=== PATIENT | male | born 1965 | race Caucasian/White ===

== ENCOUNTER 2020-10-07 18:12 | Emergency (ER) | payer OTHER, SELFPAY ==
[2020-10-07 18:21] VITALS: BP 119/80; PULSE 112; RESP 18; TEMP 37; O2SAT 98; BMI 24.3
--- NOTE | 2020-10-07 18:45 | XR_ITS ---
EXAMINATION: XR CHEST CLINICAL INFORMATION: Shortness of breath COMPARISON: Multiple prior exams. Most recent exam Chest x-ray 08/11/2020. CT chest 08/13/2020 TECHNIQUE: Frontal portable view of the chest was obtained. 6:46 PM FINDINGS: There are small hazy and streaky opacities of lungs bilateral. These are affecting mostly the mid and lower lung. These have improved in aeration since prior chest x-ray 08/11/2020. Most improvement is seen of the opacities in the right midlung. No new airspace opacity. No pulmonary vascular congestion. No pleural effusion or pneumothorax. Heart size is normal. Cardiac and mediastinal contours are normal. XR/XR chest 1V IMPRESSION: Improving bilateral airspace opacities. No new abnormality of the chest.
--- NOTE | 2020-10-07 18:46 | ECG_ITS ---
Test Reason : SOB Blood Pressure : / mmHG Vent. Rate : 106 BPM Atrial Rate : 106 BPM P-R Int : 172 ms QRS Dur : 078 ms QT Int : 346 ms P-R-T Axes : 072 074 057 degrees QTc Int : 459 ms Sinus tachycardia Possible Left atrial enlargement Otherwise normal ECG When compared with ECG of 11-AUG-2020 18:44, No significant change was found Referred By: Amira Miller Electronically Signed By:MELODY HURTADO MD
--- NOTE | 2020-10-07 18:48 | ED.SOB ---
HPI - SOB/Dyspnea General Chief Complaint: Dyspnea Stated Complaint: SOB COPD Time Seen by Provider: 10/07/20 18:45 Source: patient and EMS Mode of arrival: ambulatory Limitations: no limitations History of Present Illness HPI Narrative: This is a 55-year-old male history of COPD presented with 1 day history of shortness of breath and wheezing, symptoms are constant described as mild, similar to previous episode of COPD exacerbation, symptoms relieved by rest, worsening by physical exertion, no associated symptoms with shortness of breath in particular no fever, no chills, no chest pain. Related Data Home Medications Medication Instructions Recorded Confirmed aspirin 1 tab PO DAILY 10/07/20 10/07/20 benztropine 1 tab PO BID 10/07/20 10/07/20 budesonide 1 vial INHALATION BID 10/07/20 10/07/20 clozapine 3 tab PO BEDTIME 10/07/20 10/07/20 metformin 1 tab PO BID 10/07/20 10/07/20 perphenazine 1 tab PO BEDTIME 10/07/20 10/07/20 simvastatin 1 tab PO BEDTIME 10/07/20 10/07/20 Previous Rx's Medication Instructions Recorded albuterol sulfate [ProAir HFA] 1 inh INHALATION QID PRN #18 g 10/07/20 prednisone 20 mg PO BID #10 tab 10/07/20 Allergies Allergy/AdvReac Type Severity Reaction Status Date / Time No Known Allergies Allergy Unverified 08/05/20 17:35 Review of Systems Review of Systems: All other systems are reviewed and are negative Constitutional: Reports as per HPI and Reports no additional constitutional complaints Eyes: Reports as per HPI and Reports no additional eye complaints Reports system reviewed and no additional complaints, except as documented Cardiovascular: Reports as per HPI and Reports no additional cardiovascular complaints Respiratory: Reports as per HPI and Reports no additional respiratory complaints Gastrointestinal: Reports as per HPI and Reports no additional gastrointestinal complaints Genitourinary: Reports no additional female genitourinary complaints Musculoskeletal: Reports no additional musculoskeletal complaints Skin/Breast: Reports system reviewed and no additional complaints, except as docu Psychiatric: Reports no additional psychiatric complaints Endocrine: Reports no additional endocrine complaints Hematologic/Lymphatic: Reports no additional hematologic/lymphatic complaints Allergic/Immunologic: Reports no additional allergic/immunologic complaints Reports system reviewed and no additional complaints, except as documented and Reports Abnormal speech present FOR[facility] Past Medical History Medical History COPD (chronic obstructive pulmonary disease) Diabetes HTN (hypertension) Social History Social History Alcohol intake: never Smoked in Last 30 Days: No Use of substances other than those prescribed or required for medical reasons: Yes Substance Use Type: Crack/Cocaine Advance Directives: No Advance Directives Information Provided: Yes Physical Exam Vital Signs: Vital Signs: Last Vital Signs Temp 98.6 F 10/07/20 18:21 Pulse 112 H 10/07/20 18:21 Resp 18 10/07/20 18:21 BP 119/80 10/07/20 18:21 Pulse Ox 98 10/07/20 18:21 Body Mass Index 24.3 Vital signs have been reviewed as normal and appeared to be correct. Blood pressure normal. Tachycardia. Respiration rate normal. Temperature normal. Oxygen saturation normal. Appearance: Alert. Oriented X3. No acute distress. Head: Normal external exam. Normocephalic. Atraumatic. No Mohamud signs noted. No raccoon eyes noted Eyes: PERRLA. EOMI. Conjunctiva and sclera normal. Eyelids normal. ENT: EAC normal. TM's Normal. Pharynx normal. Uvula midline. Moist mucous membranes. No trismus noted. No drooling noted. No muffled voice noted. Neck: Normal inspection. Neck supple. FROM. No adenopathy. Thyroid Normal. No meningeal signs. No neck mass noted. CVS: Normal heart rate and rhythm. Heart sound normal. No murmurs noted. Pulses normal throughout. Respiratory: No respiratory distress. Painless inspiration. Breath sounds normal. Diffuse bilateral mild wheezing with mild prolonged expiration, no rales/rhonchi noted. Chest nontender. No accessory muscle usage noted or decreased air movement noted. Abdomen: Soft and nontender. Bowel sounds normal in all 4 quadrants. No distention noted. No organomegaly noted. No visible injury noted. Back: No CVA tenderness. Full range of motion noted. Skin: Skin warm and dry. Normal skin color. Normal skin turgor. No rashes/lesions/lacerations noted. Extremities: No lower extremity edema. Extremities exhibit normal range of motion. Extremities nontender. Neuro: Oriented X 3. No motor deficit. No sensory deficit. Reflexes normal. MDM - SOB/Dyspnea MDM Narrative Medical decision making narrative: Assessment and plan. 55-year-old male with history of COPD presented with mild COPD exacerbation, patient improved with IV Solu-Medrol/bronchodilator/magnesium. Patient now is in bed appears comfortable with vital sign stable except for: Mild tachycardia but otherwise patient appears comfortable with stable vital sign. Will discharge the patient with albuterol, and few days of steroid course. Patient was chronic anemia at his baseline. Lab Data Attestation: I reviewed the patient's lab results. Result diagrams: 10/07/20 19:13 10/07/20 19:13 Labs: Lab Results 10/07/20 10/07/20 10/07/20 Range/Units 19:13 19:13 19:13 WBC 6.2 (4.8-10.8) X10*3/uL RBC 3.72 L (4.60-5.80) X10*6/uL Hgb 8.8 L (14.0-18.0) g/dl Hct 28.6 L (42-52) % MCV 76.9 L (80-98) fL MCH 23.7 L (27.0-33.0) pg MCHC 30.8 L (31.0-36.0) g/dl RDW 15.1 (11.0-16.0) % Plt Count 337 (160-400) X10*3/uL MPV 9.8 (9.4-12.4) fL Immature Gran % (Auto) 0.2 (0.0-0.4) % Neut % (Auto) 73.8 H (45-73) % Lymph % (Auto) 19.0 L (20-40) % [place] % (Auto) 6.0 (2-11) % Eos % (Auto) 0.2 (0-4) % Baso % (Auto) 0.8 (0-2) % Lymph # (Auto) 1.2 (1.2-4.9) X10*3/uL [place] # (Auto) 0.4 (0.1-1.2) X10*3/uL Eos # (Auto) 0.0 (0.0-0.4) X10*3/uL Baso # (Auto) 0.1 (0.0-0.2) X10*3/uL Abs Immat Gran (auto) 0.01 (0.00-0.03) X10*3/uL Absolute Neuts (auto) 4.6 (2.0-8.3) X10*3/uL Absolute Nucleated RBC 0.000 (0.0-0.012) X10*3/uL Nucleated RBC % (auto) 0.0 (0.0-0.2) /100WBC Sodium 136 (135-145) mmol/L Potassium 4.5 (3.3-5.1) mmol/l Chloride 101 (96-108) mmol/L Carbon Dioxide 25 (22-29) mmol/L Anion Gap 15 (12-20) BUN 16 (9-16) mg/dL Creatinine 1.04 (0.5-1.4) mg/dL Estim Creat Clear Calc 68.7 Estimated GFR > 60 Random Glucose 124 H (60-115) mg/dL Lactic Acid (0.5-2.0) mmol/L Calcium 8.5 (8.4-10.2) mg/dL Urine Color Urine Appearance Urine pH (5.0-8.0) Ur Specific [place] (1.005-1.025) Urine Protein (NEG-TRACE) MG/DL Urine Glucose (UA) (NEG) MG/DL Urine Ketones (NEG) MG/DL Urine Blood (NEG) Urine Nitrite (NEG) Ur Leukocyte Esterase (NEG) COVID-19 (ANDERS) Negative (Negative) COVID-19 Clin Com See Note 10/07/20 10/07/20 Range/Units 19:13 19:22 WBC (4.8-10.8) X10*3/uL RBC (4.60-5.80) X10*6/uL Hgb (14.0-18.0) g/dl Hct (42-52) % MCV (80-98) fL MCH (27.0-33.0) pg MCHC (31.0-36.0) g/dl RDW (11.0-16.0) % Plt Count (160-400) X10*3/uL MPV (9.4-12.4) fL Immature Gran % (Auto) (0.0-0.4) % Neut % (Auto) (45-73) % Lymph % (Auto) (20-40) % [place] % (Auto) (2-11) % Eos % (Auto) (0-4) % Baso % (Auto) (0-2) % Lymph # (Auto) (1.2-4.9) X10*3/uL [place] # (Auto) (0.1-1.2) X10*3/uL Eos # (Auto) (0.0-0.4) X10*3/uL Baso # (Auto) (0.0-0.2) X10*3/uL Abs Immat Gran (auto) (0.00-0.03) X10*3/uL Absolute Neuts (auto) (2.0-8.3) X10*3/uL Absolute Nucleated RBC (0.0-0.012) X10*3/uL Nucleated RBC % (auto) (0.0-0.2) /100WBC Sodium (135-145) mmol/L Potassium (3.3-5.1) mmol/l Chloride (96-108) mmol/L Carbon Dioxide (22-29) mmol/L Anion Gap (12-20) BUN (9-16) mg/dL Creatinine (0.5-1.4) mg/dL Estim Creat Clear Calc Estimated GFR Random Glucose (60-115) mg/dL Lactic Acid 1.6 (0.5-2.0) mmol/L Calcium (8.4-10.2) mg/dL Urine Color YELLOW Urine Appearance CLEAR Urine pH 6.0 (5.0-8.0) Ur Specific [place] 1.010 (1.005-1.025) Urine Protein NEG (NEG-TRACE) MG/DL Urine Glucose (UA) NEG (NEG) MG/DL Urine Ketones NEG (NEG) MG/DL Urine Blood NEG (NEG) Urine Nitrite NEG (NEG) Ur Leukocyte Esterase NEG (NEG) COVID-19 (ANDERS) (Negative) COVID-19 Clin Com Imaging Data Chest x-ray: Radiologist's impression: Improving bilateral airspace opacities. No new abnormality of the chest. ECG Data Interpretation: Sinus tachycardia at 106 beats per minutes, normal axis, normal interval, no ST-T changes. Discharge Plan Discharge Clinical Impression: Acute exacerbation of chronic obstructive airways disease Patient Disposition: Home, Self-Care Instructions: COPD (Chronic Obstructive Pulmonary Disease) (ED) Prescriptions: New albuterol sulfate [ProAir HFA] 90 mcg/actuation HFA aerosol inhaler 1 inh inhalation QID PRN (Reason: shortness of breath or wheezing) Qty: 18 RF: 0 prednisone 20 mg tablet 20 mg PO BID Qty: 10 RF: 0 No Action clozapine 100 mg tablet 3 tab PO BEDTIME RF: 0 aspirin 81 mg tablet,delayed release (DR/EC) 1 tab PO DAILY RF: 0 simvastatin 40 mg tablet 1 tab PO BEDTIME RF: 0 metformin 1,000 mg tablet 1 tab PO BID RF: 0 benztropine 1 mg tablet 1 tab PO BID RF: 0 budesonide 0.5 mg/2 mL suspension for nebulization 1 vial inhalation BID RF: 0 perphenazine 8 mg tablet 1 tab PO BEDTIME RF: 0 Referrals: Physician,Unknown [Primary Care Provider] - 2 days
[2020-10-07] MEDS: Magnesium Sulfate/H2O 2 GM/50 ML PIGGYBACK IV (19:03)
[2020-10-07 19:25] LABS: Basophils Absolute Auto 0.1 X10*3/uL (0.0-0.2); Basophils Percent Auto 0.8 % (0-2); Eosinophils Percent Auto 0.2 % (0-4); Hematocrit 28.6 % (42-52); Hemoglobin 8.8 g/dl (14.0-18.0); Imm Gran Abs Auto 0.01 X10*3/uL (0.00-0.03); Imm Gran Pct Auto 0.2 % (0.0-0.4); Lymphocytes Absolute Auto 1.2 X10*3/uL (1.2-4.9); MANUAL DIFF FLAG NO; Mean Corpuscular HGB Conc 30.8 g/dl (31.0-36.0); Mean Corpuscular Hemoglobin 23.7 pg (27.0-33.0); Mean Corpuscular Volume 76.9 fL (80-98); Mean Platelet Volume 9.8 fL (9.4-12.4); Monocytes Absolute Auto 0.4 X10*3/uL (0.1-1.2); Neutrophils Absolute Auto 4.6 X10*3/uL (2.0-8.3); Neutrophils Percent Auto 73.8 % (45-73); Platelet Count 337 X10*3/uL (160-400); Red Blood Count 3.72 X10*6/uL (4.60-5.80); Red Cell Distribution Width 15.1 % (11.0-16.0); White Blood Count 6.2 X10*3/uL (4.8-10.8)
[2020-10-07 19:36] LABS: Appearance Urine CLEAR; Color Urine YELLOW; Glucose Urine UA NEG (NEG); Leukocyte Esterase Urine NEG (NEG); Nitrite Urine NEG (NEG); Urine Blood NEG (NEG); Urine Ketones NEG (NEG); Urine Protein NEG (NEG-TRACE)
[2020-10-07 19:43] LABS: COVID-19 Test Negative (Negative); Lactic Acid 1.6 mmol/L (0.5-2.0)
[2020-10-07 19:46] LABS: Anion Gap 15 (12-20); Blood Urea Nitrogen 16 mg/dL (9-16); Calcium 8.5 mg/dL (8.4-10.2); Carbon Dioxide 25 mmol/L (22-29); Chloride 101 mmol/L (96-108); Creatinine Clr Calc Pharmacy 68.7; Estimated Glomerular Filt Rate > 60; Glucose Random 124 mg/dL (60-115); Potassium 4.5 mmol/l (3.3-5.1); Sodium 136 mmol/L (135-145)
[2020-10-07 19:52] LABS: B Type Natriuretic Peptide < 10 pg/mL (<100); Troponin-I High Sensitivity < 3.5 ng/L (<3.5-35.0)
[2020-10-07] MEDS: Albuterol Sulfate (0.083%) 2.5 MG/3 ML VIAL.NEB INHALE (20:06)
[2020-10-07] MEDS: Albuterol/Iprat 2.5/0.5MG 3 ML AMPUL.NEB INHALE (20:06)
[2020-10-07 20:07] VITALS: PULSE 105; O2SAT 95
[2020-10-07 20:08] LABS: Amphetamine Screen Urine Not Detected (Not Detect); Barbiturates, Urine Not Detected (Not Detect); Benzodiazepines Screen Urine Not Detected (Not Detect); Cannabinoid Screen Urine Not Detected (Not Detect); Cocaine Screen Urine POSITIVE (Not Detect); Opiate Screen Urine Not Detected (Not Detect); Phencyclidine Screen Urine Not Detected (Not Detect)
== END 2020-10-07 20:33 | disposition home or self-care (01) ==
PROVIDERS: Emergency Provider Emergency Medicine
DX: J44.1 Chronic obstructive pulmonary disease with (acute) exacerbation (principal); R06.02 Shortness of breath; F14.90 Cocaine use, unspecified, uncomplicated; Z79.899 Other long term (current) drug therapy
CPT/HCPCS: 36415; 71045; 80048; 80307; 81003; 83605; 83880; 84484; 85025; 87040; 87635; 93005; 94640; 96365; 96366; 96375; 99284; J3475

== ENCOUNTER 2020-10-08 16:51 | Outpatient (REF) | payer OTHER, SELFPAY | END 2020-10-08 16:52 | disposition home or self-care (01) | LOC: HO.LAB 16:51 | PROVIDERS: Visit Provider Internal Medicine | DX: Z20.828 Contact with and (suspected) exposure to other viral communicable diseases (principal) | CPT/HCPCS: C9803; U0003 ==

== ENCOUNTER → 2020-10-11 11:08 | Outpatient (BNVA) | payer OTHER, SELFPAY | PROVIDERS: Visit Provider Physician Assistant | DX: Z76.89 Persons encountering health services in other specified circumstances (principal) ==

== ENCOUNTER 2020-10-12 09:24 | Emergency (ER) | payer OTHER, SELFPAY ==
[2020-10-12 09:31] VITALS: BP 115/76; PULSE 107; RESP 22; TEMP 36.4; O2SAT 98; BMI 24.7
--- NOTE | 2020-10-12 09:35 | XR_ITS ---
EXAMINATION: XR CHEST CLINICAL INFORMATION: Difficulty breathing COMPARISON: Previous chest x-rays most recent 10/07/[address] scan July 2020 TECHNIQUE: Frontal view of the chest was obtained. FINDINGS: The cardiac and mediastinal contours are stable. There is atelectasis or small infiltrates at the lung bases, right greater than left. This is similar to previous exams. The lungs are otherwise clear. There is no pleural effusion or pneumothorax. There are old right and left clavicle fractures. XR/XR chest 1V IMPRESSION: Atelectasis or small infiltrate at the lung bases, right greater than left. This is similar to previous exams.
--- NOTE | 2020-10-12 09:35 | ECG_ITS ---
Test Reason : SOB Blood Pressure : / mmHG Vent. Rate : 107 BPM Atrial Rate : 107 BPM P-R Int : 162 ms QRS Dur : 074 ms QT Int : 342 ms P-R-T Axes : 079 078 057 degrees QTc Int : 456 ms Sinus tachycardia Otherwise normal ECG When compared with ECG of 07-OCT-2020 19:25, No significant change was found Referred By: Ambreen Liu Electronically Signed By:MELODY HURTADO MD
--- NOTE | 2020-10-12 09:37 | ED.SOB ---
HPI - SOB/Dyspnea General Chief Complaint: Dyspnea Stated Complaint: diff breathing Time Seen by Provider: 10/12/20 09:34 Source: patient and EMS Mode of arrival: EMS Limitations: no limitations History of Present Illness HPI Narrative: 55 y/o male with history of COPD, MARA on CPAP, chronic anemia, schizophrenia, pneumonia, cognitive delay, hearing loss, HTN, HLP who presents via EMS from a retirement with difficulty breathing that started this morning. He was seen in this ED 5 days ago for SOB and wheezing, diagnosed with mild COPD exacerbation and d/c with prednisone and albuterol inhaler. He is a poor historian. He states he has been using his inhalers but is not clear about whether or not he has been taking the prednisone or not. He has been compliant with his CPAP. He states his breathing feels heavy and he has an increase in a non-productive cough. He denies exacerbation of symptoms with exertion or when laying flat. He denies fever, chills, N/V, abd pain, chest pain, urinary symptoms, headache, nasal congestion, myalgias or LE edema. Pertinent past history: COPD Related Data Home oxygen amount: none Home Medications Medication Instructions Recorded Confirmed aspirin 1 tab PO DAILY 10/07/20 10/07/20 benztropine 1 tab PO BID 10/07/20 10/07/20 budesonide 1 vial INHALATION BID 10/07/20 10/07/20 clozapine 3 tab PO BEDTIME 10/07/20 10/07/20 metformin 1 tab PO BID 10/07/20 10/07/20 perphenazine 1 tab PO BEDTIME 10/07/20 10/07/20 simvastatin 1 tab PO BEDTIME 10/07/20 10/07/20 Previous Rx's Medication Instructions Recorded albuterol sulfate [ProAir HFA] 1 inh INHALATION QID PRN #18 g 10/07/20 dexamethasone [Decadron] 4 mg PO DAILY #5 tab 10/12/20 doxycycline monohydrate 100 mg PO BID 7 Days #14 cap 10/12/20 prednisone 40 mg PO DAILY #10 tab 10/12/20 Allergies Allergy/AdvReac Type Severity Reaction Status Date / Time No Known Allergies Allergy Unverified 08/05/20 17:35 Review of Systems Review of Systems: Constitutional: No Fever, No Chills ENT/Mouth: No sore throat, No Rhinorrhea, No Swallowing Difficulty Eyes: No Eye Pain, No Swelling, No Redness Cardiovascular: No Chest Pain, No SOB, No Orthopnea, No Edema Respiratory: No Cough, No Sputum, No Wheezing, No dyspnea Gastrointestinal: No Nausea, No Vomiting, No Diarrhea, No abdominal Pain, No Hematochezia, No Melena Genitourinary: No Dysuria, No Urinary Frequency, No Hematuria Musculoskeletal: No joint pain, No Myalgias Skin: No Skin Lesions, No rash Neuro: No Weakness, No Numbness, No Dizziness, No Headache Psych: No Anxiety/Panic, No Depression Heme/Lymph: No Bruising, No Lymphadenopathy Endocrine: No Polyuria, No Polydipsia PMF Past Medical History Attestation statement: The following information was validated with the patient. Medical History COPD (chronic obstructive pulmonary disease) Diabetes HTN (hypertension) Social History Social History Alcohol intake: never Smoking Status: Current every day smoker Use of substances other than those prescribed or required for medical reasons: No Substance Use Type: Crack/Cocaine Advance Directives: No Advance Directives Information Provided: No Physical Exam Vital Signs: Vital Signs: Last Vital Signs Temp 97.6 F 10/12/20 09:31 Pulse 110 H 10/12/20 13:40 Resp 18 10/12/20 13:40 BP 125/77 10/12/20 13:40 Pulse Ox 98 10/12/20 13:40 Body Mass Index 24.7 Appearance: Alert. Kyphotic, No distress Eyes: Pupils equal, round and reactive to light. ENT: Pharynx normal. Neck: Normal inspection. Neck supple. CVS: Normal heart rate and rhythm. Pulses normal. Respiratory: No respiratory distress. Breath sounds coarse but no wheeze or rhonchi Abdomen: Soft and nontender. +BS x4 Skin: Skin warm and dry. Normal skin color. Normal skin turgor. No rashes. Extremities: No lower extremity edema. Negative Yanci's sign Neuro: Oriented X 3. No motor deficit. No sensory deficit. Course Course Course Narrative: 55 y/o with hx schizophrenia and developemental delay, recent COPD exacerbation presenting with difficulty breathing. Given nebulizer prior to EMS arrival with improvement in wheeze. On arrival no distress, slight tachycardia but no fever. ?residual effect from neb. Denies chest pain. DDx includes but not limited to bacterial pneumonia, viral pneumonia, COPD exacerbation, non-compliance with medications, influenza, COVID-19, CHF, ACS. Reevaluation(s) Reevaluation #1: COVID/flu/RSV negative. Remains slightly tachycardic 102 - given antibiotics for possible bronchitis as well as steroids. CXR shows improving bibasilar infiltrates, ?atelectasis. He feels much better and could like to go home. Lactic acid 2.9 --> improved to 1.7. SpO2 97% on room air. Does not appear septic. Stable for discharge with treatment for acute bronchitis. MDM - SOB/Dyspnea Differential Diagnosis Differential diagnosis: Likely acute exacerbation of chronic obstructive airways disease, congestive heart failure, pneumonia, asthma with exacerbation, pulmonary embolism, pleural effusion, sleep apnea and anemia Lab Data Result diagrams: 10/12/20 09:56 10/12/20 09:57 Labs: Lab Results 10/12/20 10/12/20 10/12/20 Range/Units 09:55 09:56 09:57 WBC 5.4 (4.8-10.8) X10*3/uL RBC 3.93 L (4.60-5.80) X10*6/uL Hgb 8.9 L (14.0-18.0) g/dl Hct 30.3 L (42-52) % MCV 77.1 L (80-98) fL MCH 22.6 L (27.0-33.0) pg MCHC 29.4 L (31.0-36.0) g/dl RDW 15.0 (11.0-16.0) % Plt Count 292 (160-400) X10*3/uL MPV 9.3 L (9.4-12.4) fL Immature Gran % (Auto) 0.2 (0.0-0.4) % Neut % (Auto) 73.0 (45-73) % Lymph % (Auto) 17.9 L (20-40) % Dukes % (Auto) 8.0 (2-11) % Eos % (Auto) 0.2 (0-4) % Baso % (Auto) 0.7 (0-2) % Lymph # (Auto) 1.0 L (1.2-4.9) X10*3/uL Dukes # (Auto) 0.4 (0.1-1.2) X10*3/uL Eos # (Auto) 0.0 (0.0-0.4) X10*3/uL Baso # (Auto) 0.0 (0.0-0.2) X10*3/uL Abs Immat Gran (auto) 0.01 (0.00-0.03) X10*3/uL Absolute Neuts (auto) 3.9 (2.0-8.3) X10*3/uL Absolute Nucleated RBC 0.000 (0.0-0.012) X10*3/uL Nucleated RBC % (auto) 0.0 (0.0-0.2) /100WBC Hold Blue Top Sodium 129 L (135-145) mmol/L Potassium 4.9 (3.3-5.1) mmol/l Chloride 95 L (96-108) mmol/L Carbon Dioxide 27 (22-29) mmol/L Anion Gap 12 (12-20) BUN 20 H (9-16) mg/dL Creatinine 1.10 (0.5-1.4) mg/dL Estim Creat Clear Calc 65.0 Estimated GFR > 60 Random Glucose 304 H D (60-115) mg/dL Lactic Acid (0.5-2.0) mmol/L Lactic Acid Fup @ 2Hr (0.5-2.0) mmol/L Calcium 8.7 (8.4-10.2) mg/dL Magnesium (1.6-2.6) mg/dL Total Bilirubin < 0.2 (0.0-1.0) mg/dL Direct Bilirubin < 0.2 (0.0-0.5) mg/dL AST 10 (5-37) U/L ALT 15 (0-40) U/L Alkaline Phosphatase 90 (39-117) U/L Troponin I High Sens (<3.5-35.0) ng/L B-Natriuretic Peptide (<100) pg/mL Total Protein 6.3 L (6.5-8.0) g/dL Albumin 3.8 (3.5-5.0) g/dL Procalcitonin ng/mL Urine Color Urine Appearance Urine pH (5.0-8.0) Ur Specific [place] (1.005-1.025) Urine Protein (NEG-TRACE) MG/DL Urine Glucose (UA) (NEG) MG/DL Urine Ketones (NEG) MG/DL Urine Blood (NEG) Urine Nitrite (NEG) Ur Leukocyte Esterase (NEG) Urine RBC (0) /HPF Urine WBC (0-4) /HPF Ur Squamous Epith Cells /LPF Urine Bacteria /LPF Coronavirus (PCR) NEGATIVE (Negative) Influenza Type A (PCR) NEGATIVE (Negative) Influenza Type B (PCR) NEGATIVE (Negative) RSV RNA Qual (PCR) NEGATIVE (Negative) 10/12/20 10/12/20 10/12/20 Range/Units 09:57 09:58 09:58 WBC (4.8-10.8) X10*3/uL RBC (4.60-5.80) X10*6/uL Hgb (14.0-18.0) g/dl Hct (42-52) % MCV (80-98) fL MCH (27.0-33.0) pg MCHC (31.0-36.0) g/dl RDW (11.0-16.0) % Plt Count (160-400) X10*3/uL MPV (9.4-12.4) fL Immature Gran % (Auto) (0.0-0.4) % Neut % (Auto) (45-73) % Lymph % (Auto) (20-40) % Dukes % (Auto) (2-11) % Eos % (Auto) (0-4) % Baso % (Auto) (0-2) % Lymph # (Auto) (1.2-4.9) X10*3/uL Dukes # (Auto) (0.1-1.2) X10*3/uL Eos # (Auto) (0.0-0.4) X10*3/uL Baso # (Auto) (0.0-0.2) X10*3/uL Abs Immat Gran (auto) (0.00-0.03) X10*3/uL Absolute Neuts (auto) (2.0-8.3) X10*3/uL Absolute Nucleated RBC (0.0-0.012) X10*3/uL Nucleated RBC % (auto) (0.0-0.2) /100WBC Hold Blue Top SEE NOTE Sodium (135-145) mmol/L Potassium (3.3-5.1) mmol/l Chloride (96-108) mmol/L Carbon Dioxide (22-29) mmol/L Anion Gap (12-20) BUN (9-16) mg/dL Creatinine (0.5-1.4) mg/dL Estim Creat Clear Calc Estimated GFR Random Glucose (60-115) mg/dL Lactic Acid 2.9 H* (0.5-2.0) mmol/L Lactic Acid Fup @ 2Hr (0.5-2.0) mmol/L Calcium (8.4-10.2) mg/dL Magnesium (1.6-2.6) mg/dL Total Bilirubin (0.0-1.0) mg/dL Direct Bilirubin (0.0-0.5) mg/dL AST (5-37) U/L ALT (0-40) U/L Alkaline Phosphatase (39-117) U/L Troponin I High Sens < 3.5 (<3.5-35.0) ng/L B-Natriuretic Peptide (<100) pg/mL Total Protein (6.5-8.0) g/dL Albumin (3.5-5.0) g/dL Procalcitonin ng/mL Urine Color Urine Appearance Urine pH (5.0-8.0) Ur Specific [place] (1.005-1.025) Urine Protein (NEG-TRACE) MG/DL Urine Glucose (UA) (NEG) MG/DL Urine Ketones (NEG) MG/DL Urine Blood (NEG) Urine Nitrite (NEG) Ur Leukocyte Esterase (NEG) Urine RBC (0) /HPF Urine WBC (0-4) /HPF Ur Squamous Epith Cells /LPF Urine Bacteria /LPF Coronavirus (PCR) (Negative) Influenza Type A (PCR) (Negative) Influenza Type B (PCR) (Negative) RSV RNA Qual (PCR) (Negative) 10/12/20 10/12/20 10/12/20 Range/Units 09:58 09:59 09:59 WBC (4.8-10.8) X10*3/uL RBC (4.60-5.80) X10*6/uL Hgb (14.0-18.0) g/dl Hct (42-52) % MCV (80-98) fL MCH (27.0-33.0) pg MCHC (31.0-36.0) g/dl RDW (11.0-16.0) % Plt Count (160-400) X10*3/uL MPV (9.4-12.4) fL Immature Gran % (Auto) (0.0-0.4) % Neut % (Auto) (45-73) % Lymph % (Auto) (20-40) % Dukes % (Auto) (2-11) % Eos % (Auto) (0-4) % Baso % (Auto) (0-2) % Lymph # (Auto) (1.2-4.9) X10*3/uL Dukes # (Auto) (0.1-1.2) X10*3/uL Eos # (Auto) (0.0-0.4) X10*3/uL Baso # (Auto) (0.0-0.2) X10*3/uL Abs Immat Gran (auto) (0.00-0.03) X10*3/uL Absolute Neuts (auto) (2.0-8.3) X10*3/uL Absolute Nucleated RBC (0.0-0.012) X10*3/uL Nucleated RBC % (auto) (0.0-0.2) /100WBC Hold Blue Top Sodium (135-145) mmol/L Potassium (3.3-5.1) mmol/l Chloride (96-108) mmol/L Carbon Dioxide (22-29) mmol/L Anion Gap (12-20) BUN (9-16) mg/dL Creatinine (0.5-1.4) mg/dL Estim Creat Clear Calc Estimated GFR Random Glucose (60-115) mg/dL Lactic Acid (0.5-2.0) mmol/L Lactic Acid Fup @ 2Hr (0.5-2.0) mmol/L Calcium (8.4-10.2) mg/dL Magnesium 1.8 (1.6-2.6) mg/dL Total Bilirubin (0.0-1.0) mg/dL Direct Bilirubin (0.0-0.5) mg/dL AST (5-37) U/L ALT (0-40) U/L Alkaline Phosphatase (39-117) U/L Troponin I High Sens (<3.5-35.0) ng/L B-Natriuretic Peptide < 10 (<100) pg/mL Total Protein (6.5-8.0) g/dL Albumin (3.5-5.0) g/dL Procalcitonin < 0.02 ng/mL Urine Color Urine Appearance Urine pH (5.0-8.0) Ur Specific [place] (1.005-1.025) Urine Protein (NEG-TRACE) MG/DL Urine Glucose (UA) (NEG) MG/DL Urine Ketones (NEG) MG/DL Urine Blood (NEG) Urine Nitrite (NEG) Ur Leukocyte Esterase (NEG) Urine RBC (0) /HPF Urine WBC (0-4) /HPF Ur Squamous Epith Cells /LPF Urine Bacteria /LPF Coronavirus (PCR) (Negative) Influenza Type A (PCR) (Negative) Influenza Type B (PCR) (Negative) RSV RNA Qual (PCR) (Negative) 10/12/20 10/12/20 Range/Units 10:41 12:27 WBC (4.8-10.8) X10*3/uL RBC (4.60-5.80) X10*6/uL Hgb (14.0-18.0) g/dl Hct (42-52) % MCV (80-98) fL MCH (27.0-33.0) pg MCHC (31.0-36.0) g/dl RDW (11.0-16.0) % Plt Count (160-400) X10*3/uL MPV (9.4-12.4) fL Immature Gran % (Auto) (0.0-0.4) % Neut % (Auto) (45-73) % Lymph % (Auto) (20-40) % Dukes % (Auto) (2-11) % Eos % (Auto) (0-4) % Baso % (Auto) (0-2) % Lymph # (Auto) (1.2-4.9) X10*3/uL Dukes # (Auto) (0.1-1.2) X10*3/uL Eos # (Auto) (0.0-0.4) X10*3/uL Baso # (Auto) (0.0-0.2) X10*3/uL Abs Immat Gran (auto) (0.00-0.03) X10*3/uL Absolute Neuts (auto) (2.0-8.3) X10*3/uL Absolute Nucleated RBC (0.0-0.012) X10*3/uL Nucleated RBC % (auto) (0.0-0.2) /100WBC Hold Blue Top Sodium (135-145) mmol/L Potassium (3.3-5.1) mmol/l Chloride (96-108) mmol/L Carbon Dioxide (22-29) mmol/L Anion Gap (12-20) BUN (9-16) mg/dL Creatinine (0.5-1.4) mg/dL Estim Creat Clear Calc Estimated GFR Random Glucose (60-115) mg/dL Lactic Acid (0.5-2.0) mmol/L Lactic Acid Fup @ 2Hr 1.7 (0.5-2.0) mmol/L Calcium (8.4-10.2) mg/dL Magnesium (1.6-2.6) mg/dL Total Bilirubin (0.0-1.0) mg/dL Direct Bilirubin (0.0-0.5) mg/dL AST (5-37) U/L ALT (0-40) U/L Alkaline Phosphatase (39-117) U/L Troponin I High Sens (<3.5-35.0) ng/L B-Natriuretic Peptide (<100) pg/mL Total Protein (6.5-8.0) g/dL Albumin (3.5-5.0) g/dL Procalcitonin ng/mL Urine Color YELLOW Urine Appearance CLEAR Urine pH 5.5 (5.0-8.0) Ur Specific [place] 1.010 (1.005-1.025) Urine Protein NEG (NEG-TRACE) MG/DL Urine Glucose (UA) >=1000 H (NEG) MG/DL Urine Ketones NEG (NEG) MG/DL Urine Blood NEG (NEG) Urine Nitrite NEG (NEG) Ur Leukocyte Esterase NEG (NEG) Urine RBC 0 (0) /HPF Urine WBC 0-2 (0-4) /HPF Ur Squamous Epith Cells TRACE /LPF Urine Bacteria NONE /LPF Coronavirus (PCR) (Negative) Influenza Type A (PCR) (Negative) Influenza Type B (PCR) (Negative) RSV RNA Qual (PCR) (Negative) ECG Data Interpretation: sinus tachycardia, HR 107, normal FL interval Scores Wells PE Heart rate > 100 p/min: 1.5 Score: 1.5 2-tier Risk: unlikely risk (5%) 3-tier Risk: low risk (3.4%) Critical Care Time Critical Care Time Critical Care Time: No Discharge Plan Discharge Clinical Impression: Acute exacerbation of chronic obstructive airways disease Acute bronchitis Qualifiers: Bronchitis organism: unspecified organism Qualified Code(s): J20.9 - Acute bronchitis, unspecified Patient Disposition: Home, Self-Care Instructions: Acute Bronchitis (ED), COPD (Chronic Obstructive Pulmonary Disease) (ED) Additional Instructions: You were tested for COVID-19, Influenza and RSV today - all of which were negative. You are being treated for acute bronchitis with steroids and antibiotics. Continue to use your inhalers and CPAP machine at home. If your breathing gets worse, or if you develop chest pain or any other concerning symptom come back to the ER for further evaluation. Prescriptions: New prednisone 20 mg tablet 40 mg PO DAILY Qty: 10 RF: 0 doxycycline monohydrate 100 mg capsule 100 mg PO BID 7 Days Qty: 14 RF: 0 dexamethasone [Decadron] 4 mg tablet 4 mg PO DAILY Qty: 5 RF: 0 Discontinued prednisone 20 mg tablet 20 mg PO BID Qty: 10 RF: 0 No Action clozapine 100 mg tablet 3 tab PO BEDTIME RF: 0 aspirin 81 mg tablet,delayed release (DR/EC) 1 tab PO DAILY RF: 0 simvastatin 40 mg tablet 1 tab PO BEDTIME RF: 0 metformin 1,000 mg tablet 1 tab PO BID RF: 0 benztropine 1 mg tablet 1 tab PO BID RF: 0 budesonide 0.5 mg/2 mL suspension for nebulization 1 vial inhalation BID RF: 0 perphenazine 8 mg tablet 1 tab PO BEDTIME RF: 0 albuterol sulfate [ProAir HFA] 90 mcg/actuation HFA aerosol inhaler 1 inh inhalation QID PRN (Reason: shortness of breath or wheezing) Qty: 18 RF: 0 Interventions: ED Discharge Assessment Last Done: 10/12/20 15:35 Discharge Date/Time: 10/12/20 15:35
[2020-10-12 10:00] VITALS: BP 109/73; PULSE 106; RESP 17; O2SAT 96
--- NOTE | 2020-10-12 10:05 | PC.NURSE ---
Patient arrives from jail complaining of SOB. Staff at jail administered updraft and reports minimal relief. Patient arrives with O2 sat high 90s on room air. Minimal wheezing throughout. Respirations appear regular and even. Skin PWD. Patient is alert and oriented. History of COPD. VSS. EKG obtained at bedside, showing sinus tachycardia. Ambreen COMMISSIONING ENGINEER at bedside to evaluate. IV established and labs drawn. Patient on property assessment monitor. Call moreno in reach.
[2020-10-12 10:09] LABS: MANUAL DIFF FLAG NO
[2020-10-12 10:10] LABS: Basophils Percent Auto 0.7 % (0-2); Eosinophils Percent Auto 0.2 % (0-4); Hematocrit 30.3 % (42-52); Hemoglobin 8.9 g/dl (14.0-18.0); Imm Gran Abs Auto 0.01 X10*3/uL (0.00-0.03); Imm Gran Pct Auto 0.2 % (0.0-0.4); Lymphocytes Percent Auto 17.9 % (20-40); Mean Corpuscular HGB Conc 29.4 g/dl (31.0-36.0); Mean Corpuscular Hemoglobin 22.6 pg (27.0-33.0); Mean Corpuscular Volume 77.1 fL (80-98); Mean Platelet Volume 9.3 fL (9.4-12.4); Monocytes Absolute Auto 0.4 X10*3/uL (0.1-1.2); Neutrophils Absolute Auto 3.9 X10*3/uL (2.0-8.3); Platelet Count 292 X10*3/uL (160-400); Red Blood Count 3.93 X10*6/uL (4.60-5.80); White Blood Count 5.4 X10*3/uL (4.8-10.8)
[2020-10-12 10:35] LABS: Magnesium 1.8 mg/dL (1.6-2.6)
[2020-10-12 10:37] LABS: B Type Natriuretic Peptide < 10 pg/mL (<100)
[2020-10-12] MEDS: 0.9 % Sodium Chloride 1,000 ML 999 ML IVCONT (10:38)
[2020-10-12 10:39] LABS: Troponin-I High Sensitivity < 3.5 ng/L (<3.5-35.0)
[2020-10-12] MEDS: methylPREDNISolone Sod Succ/PF 125 MG/2 ML VIAL 80 MG IVPUSH (10:39)
[2020-10-12 10:40] LABS: Lactic Acid 2.9 mmol/L (0.5-2.0)
[2020-10-12 10:42] LABS: Alanine Aminotransferase 15 U/L (0-40); Albumin Level 3.8 g/dL (3.5-5.0); Alkaline Phosphatase 90 U/L (39-117); Anion Gap 12 (12-20); Aspartate Amino Transferase 10 U/L (5-37); Bilirubin Direct < 0.2 mg/dL (0.0-0.5); Bilirubin Total < 0.2 mg/dL (0.0-1.0); Blood Urea Nitrogen 20 mg/dL (9-16); Calcium 8.7 mg/dL (8.4-10.2); Carbon Dioxide 27 mmol/L (22-29); Chloride 95 mmol/L (96-108); Estimated Glomerular Filt Rate > 60; Glucose Random 304 mg/dL (60-115); Potassium 4.9 mmol/l (3.3-5.1); Sodium 129 mmol/L (135-145); Total Protein 6.3 g/dL (6.5-8.0)
[2020-10-12 10:46] LABS: Influenza A PCR NEGATIVE (Negative); Influenza B PCR NEGATIVE (Negative); Resp Syncy Virus RNA Qual PCR NEGATIVE (Negative); SARS COV2 PCR INHOUSE NEGATIVE (Negative)
--- NOTE | 2020-10-12 10:47 | PC.NURSE ---
Patient appears comfortable resting on stretcher. Remains with O2 sat high 90s on room air. VSS. Respirations regular and even. Skin PWD. Hung NS 1L and medicated with Solumedrol. Urine sample sent to lab. Awaiting results.
[2020-10-12 10:51] LABS: Glucose Urine UA >=1000 MG/DL (NEG); Leukocyte Esterase Urine NEG (NEG); Nitrite Urine NEG (NEG); PH 5.5 (5.0-8.0); Urine Blood NEG (NEG); Urine Ketones NEG (NEG); Urine Protein NEG (NEG-TRACE)
[2020-10-12 10:55] LABS: Appearance Urine CLEAR; Color Urine YELLOW
[2020-10-12 10:56] LABS: Procalcitonin < 0.02 ng/mL
[2020-10-12 11:15] LABS: RBC Urine 0 /HPF (0); Squamous Epithelial Cell Urine TRACE /LPF; WBC Urine 0-2 /HPF (0-4)
[2020-10-12] MEDS: cefTRIAXone sodium 1 GM in 0.9 % Sodium Chloride 50 ML IV (11:42)
[2020-10-12 12:00] VITALS: BP 139/67; PULSE 102; RESP 17; O2SAT 97
--- NOTE | 2020-10-12 12:00 | PC.NURSE ---
Patient remains comfortable resting on stretcher. Respirations remain regular and even. Skin PWD. O2 sat high 90s on room air. Juancarlos thurman, awaiting infusion. Will continue to monitor.
[2020-10-12 12:07] LABS: Reflex Lactate? Lactic Acid Added
[2020-10-12] MEDS: Azithromycin 500 MG in 0.9 % Sodium Chloride 250 ML 125 MG IV (12:22)
--- NOTE | 2020-10-12 12:37 | PC.NURSE ---
Hung Azithromycin. Patient using urinal independently to void. Gave sandwich and diet anahi shanelle at this time, ok per Ambreen PANIAGUA. Repeat lactic drawn and sent to lab.
[2020-10-12 13:18] LABS: ~Lactic Acid-LAB USE ONLY 1.7 mmol/L (0.5-2.0)
[2020-10-12 13:40] VITALS: BP 125/77; PULSE 110; RESP 18; O2SAT 98
--- NOTE | 2020-10-12 14:15 | PC.NURSE ---
Patient remains comfortable and with regular, even, and non-labored respirations. Skin remains PWD. Antibiotics finished infusing, IV removed and patient dressed for discharge home via chair van. Awaiting chair van.
== END 2020-10-12 15:35 | disposition home or self-care (01) ==
PROVIDERS: Physician Assistant; Emergency Provider Emergency Medicine Emergency Medical Services
DX: J44.1 Chronic obstructive pulmonary disease with (acute) exacerbation (principal); J20.9 Acute bronchitis, unspecified; R06.00 Dyspnea, unspecified; F14.90 Cocaine use, unspecified, uncomplicated; I10 Essential (primary) hypertension; F17.200 Nicotine dependence, unspecified, uncomplicated; Z71.6 Tobacco abuse counseling; Z20.828 Contact with and (suspected) exposure to other viral communicable diseases; Z79.899 Other long term (current) drug therapy
CPT/HCPCS: 0241U; 36415; 71045; 80048; 80076; 81001; 83605; 83735; 83880; 84145; 84484; 85025; 87040; 93005; 96361; 96365; 96366; 96375; 99284; J0456; J0696; J2930

== ENCOUNTER 2021-02-20 13:01 | Emergency (ER) | payer OTHER, SELFPAY ==
--- NOTE | ~2021-02-20 | XR_ITS ---
EXAMINATION: XR FEMUR, RIGHT CLINICAL INFORMATION: Pain after fall COMPARISON: None TECHNIQUE: AP and lateral views of the right femur were obtained. FINDINGS: There is normal alignment without acute fracture or dislocation. There is mild narrowing of the right hip joint space. Overlying soft tissues are intact. XR/XR femur RT 2V IMPRESSION: No acute bony abnormality of the right femur.
[2021-02-20 13:13] VITALS: BP 130/79; BP 144/70; PULSE 100; PULSE 110; RESP 18; TEMP 36.8; O2SAT 96; BMI 27.3
--- NOTE | 2021-02-20 13:25 | ED_ITS ---
HPI - Fall General Chief Complaint: Back Pain/Injury Stated Complaint: back pain Time Seen by Provider: 02/20/21 13:20 Source: EMS Mode of arrival: EMS Limitations: no limitations History of Present Illness HPI Narrative: States he slipped and fell onto his right hip last evening having pain there with palpation. Patient is ambulatory. He comes via EMS from his alf in [place]. Onset (ago): day(s) Fall from: standing Fall witnessed: yes, by living facility staff Place fall occurred: home Loss of consciousness: none Length of LOC: second(s) Prolonged down time: no Symptoms prior to fall: none Context: tripped/slipped Location of injury: other (States he landed on the right hip region denies any torso pain head neck or lower extremity/upper extremity injury.) Location of injury - extremities: right: thigh (Her) Severity: mild Severity scale (1-10): 2 Associated symptoms (after fall): denies Related Data Home Medications Medication Instructions Recorded Confirmed aspirin 1 tab PO DAILY 10/07/20 10/07/20 benztropine 1 tab PO BID 10/07/20 10/07/20 budesonide 1 vial INHALATION BID 10/07/20 10/07/20 clozapine 3 tab PO BEDTIME 10/07/20 10/07/20 metformin 1 tab PO BID 10/07/20 10/07/20 perphenazine 1 tab PO BEDTIME 10/07/20 10/07/20 simvastatin 1 tab PO BEDTIME 10/07/20 10/07/20 Previous Rx's Medication Instructions Recorded albuterol sulfate [ProAir HFA] 1 inh INHALATION QID PRN #18 g 10/07/20 dexamethasone [Decadron] 4 mg PO DAILY #5 tab 10/12/20 doxycycline monohydrate 100 mg PO BID 7 Days #14 cap 10/12/20 prednisone 40 mg PO DAILY #10 tab 10/12/20 Allergies Allergy/AdvReac Type Severity Reaction Status Date / Time No Known Allergies Allergy Unverified 08/05/20 17:35 Review of Systems Review of Systems: Constitutional: No Weight loss, No Fever, No Chills, No Night Sweats, No Fatigue, No Malaise ENT/Mouth: No Hearing loss, No Ear Pain, No Nasal Congestion, No Sinus Pain, No Hoarseness, No sore throat, No Rhinorrhea, No Swallowing Difficulty Eyes: No Eye Pain, No Swelling, No Redness, No Foreign Body, No Discharge, No Vision Changes Cardiovascular: No Chest Pain, No SOB, No Dyspnea on Exertion, No Orthopnea, No Edema, No Palpitations Respiratory: No Cough, No Sputum, No Wheezing, No Dyspnea Gastrointestinal: No Nausea, No Vomiting, No Diarrhea, No Constipation, No abdominal Pain, No Hematochezia, No Melena Genitourinary: no irregular bleeding, No Dysuria, No Urinary Frequency, No Hematuria, No Urinary Incontinence, No Urgency, No Flank Pain, No Urinary Flow Changes, No Hesitancy Musculoskeletal: No joint pain, No Myalgias, No Joint Swelling , as noted per H PI Skin: No Skin Lesions, No rash Neuro: No Weakness, No Numbness, No Paresthesias, No Loss of Consciousness, No Dizziness, No Headache Psych: No Anxiety/Panic, No Depression, No SI/HI/AH/VH, No Social Issues Heme/Lymph: No Bruising, No Bleeding,No Lymphadenopathy Endocrine: No Polyuria, No Polydipsia, No Temperature Intolerance Yes all other systems are reviewed and are negative [facility] Past Medical History Medical History COPD (chronic obstructive pulmonary disease) Diabetes HTN (hypertension) Social History Social History Alcohol intake: never Smoking Status: Current every day smoker Substance Use Type: Crack/Cocaine Advance Directives: No Advance Directives Information Provided: No Physical Exam Vital Signs: Vital Signs: Last Vital Signs Temp 98.2 F 02/20/21 13:13 Pulse 100 02/20/21 13:13 Resp 18 02/20/21 13:13 BP 144/70 H 02/20/21 13:13 Pulse Ox 96 02/20/21 13:13 Body Mass Index 27.3 Reviewed Const: General: cooperative and healthy appearing; No acute distress or i ntoxicated appearing Nutritional Appearance: average body habitus Orientation/consciousness: patient oriented x3 HENMT: Head: Yes normal to inspection Ears: hearing grossly normal bilaterally Eyes: General: appearance normal, both eyes and all related structures Visual Tony: normal visual tony by confrontation Neck: Neck: Yes normal visual inspection, No positive Brudzinski's sign, No positive Kernig's sign and No tender Thyroid: Thyroid normal Chest: Chest palpation & inspection: normal inspection of the chest Resp: Effort & Inspection: normal respiratory effort Cardio: Jugular venous distension: no JVD Rhythm: regular rhythm Heart sounds: S1 normal heart sound present and S2 normal heart sound present GI: Inspection: Yes normal to inspection Palpation (GI): Soft to palpation Percussion: Yes normal to percussion Auscultation: normal bowel sounds : General: Yes no CVA tenderness Back/Spine/Pelvis: Back: no CVA tenderness Skin: General skin exam: no rashes or lesions noted Neuro: General: patient oriented x3 Extrem: General: Yes normal to inspection Upper/lower leg/hip images: 1. Pain directly over this region. There is no obvious ecchymosis. Full range of motion lower extremity. Leg lift without pain. Got up out of bed with slow steady gait. MDM - Fall MDM Narrative Medical decision making narrative: Mechanical fall without prodromal symptoms AP and exam consistent with contusion type injury right femur x-ray without acute deformities. Ambulatory steady gait. Will discharge with supportive comfort return, follow-up instructions. Will discharge back to alf. Stable for discharge. Discharge Plan Discharge Clinical Impression: Contusion of hip, right Qualifiers: Encounter type: initial encounter Qualified Code(s): S70.01XA - Contusion of right hip, initial encounter Fall from slipping Qualifiers: Encounter type: initial encounter Qualified Code(s): W01.0XXA - Fall on same level from slipping, tripping and stumbling without subsequent striking against object, initial encounter Patient Disposition: Home, Self-Care Instructions: Fall Prevention (ED), Hip Contusion (ED) Additional Instructions: Your x-ray of the right hip did not show any fracture Supportive care as discussed Compresses Tylenol for pain as needed Gentle stretching Wear supportive footwear as discussed Make sure there is no clutter and the living area as well lighted Follow-up as instructed Return if any concerns or worsening symptoms Thank you Prescriptions: No Action clozapine 100 mg tablet 3 tab PO BEDTIME RF: 0 aspirin 81 mg tablet,delayed release (DR/EC) 1 tab PO DAILY RF: 0 simvastatin 40 mg tablet 1 tab PO BEDTIME RF: 0 metformin 1,000 mg tablet 1 tab PO BID RF: 0 benztropine 1 mg tablet 1 tab PO BID RF: 0 budesonide 0.5 mg/2 mL suspension for nebulization 1 vial inhalation BID RF: 0 perphenazine 8 mg tablet 1 tab PO BEDTIME RF: 0 albuterol sulfate [ProAir HFA] 90 mcg/actuation HFA aerosol inhaler 1 inh inhalation QID PRN (Reason: shortness of breath or wheezing) Qty: 18 RF: 0 prednisone 20 mg tablet 40 mg PO DAILY Qty: 10 RF: 0 doxycycline monohydrate 100 mg capsule 100 mg PO BID 7 Days Qty: 14 RF: 0 dexamethasone [Decadron] 4 mg tablet 4 mg PO DAILY Qty: 5 RF: 0 Referrals: Nighat Muñoz MD [Primary Care Provider] - 1 week
== END 2021-02-20 14:59 | disposition home or self-care (01) ==
PROVIDERS: Emergency Provider Emergency Medicine; PCP Family Medicine
DX: S70.01XA Contusion of right hip, initial encounter (principal); M25.551 Pain in right hip; W18.30XA Fall on same level, unspecified, initial encounter; Y93.9 Activity, unspecified; Y92.009 Unspecified place in unspecified non-institutional (private) residence as the place of occurrence of the external cause; Y99.9 Unspecified external cause status; Z79.899 Other long term (current) drug therapy
CPT/HCPCS: 73552; 99283

== ENCOUNTER 2021-03-30 15:50 | Emergency (ER) | payer OTHER, SELFPAY ==
[2021-03-30 16:10] VITALS: BP 124/81; PULSE 97; RESP 20; TEMP 36.9; O2SAT 96; BMI 25.7
[2021-03-30 16:29] LABS: MANUAL DIFF FLAG NO
--- NOTE | 2021-03-30 16:29 | ED_ITS ---
HPI - General Adult General Chief complaint: Recheck/Abnormal Lab/Rx Stated complaint: ABNORMAL LABS Time Seen by Provider: 03/30/21 16:21 Source: RN notes reviewed Mode of arrival: EMS Limitations: no limitations History of Present Illness HPI narrative: Patient's history of COPD alcohol syndrome hyperlipidemia hypertension dysphagia came from [facility] for hemoglobin of 7.9 hematocrit 27.6. Patient denies any complaints no shortness of breath no chest pain no abdominal pain no black stool no blood in the urine. Patient not on any iron pills.. Patient feels same as before Related Data Home Medications Medication Instructions Recorded Confirmed aspirin 1 tab PO DAILY 10/07/20 10/07/20 benztropine 1 tab PO BID 10/07/20 10/07/20 budesonide 1 vial INHALATION BID 10/07/20 10/07/20 clozapine 3 tab PO BEDTIME 10/07/20 10/07/20 metformin 1 tab PO BID 10/07/20 10/07/20 perphenazine 1 tab PO BEDTIME 10/07/20 10/07/20 simvastatin 1 tab PO BEDTIME 10/07/20 10/07/20 Previous Rx's Medication Instructions Recorded albuterol sulfate [ProAir HFA] 1 inh INHALATION QID PRN #18 g 10/07/20 dexamethasone [Decadron] 4 mg PO DAILY #5 tab 10/12/20 doxycycline monohydrate 100 mg PO BID 7 Days #14 cap 10/12/20 prednisone 40 mg PO DAILY #10 tab 10/12/20 ferrous sulfate 324 mg PO DAILY #30 tab 03/30/21 Allergies Allergy/AdvReac Type Severity Reaction Status Date / Time No Known Allergies Allergy Unverified 08/05/20 17:35 Review of Systems Review of Systems: Constitutional : No Weight loss, No Fever, No Chills ENT/Mouth : No sore throat, No Rhinorrhea Eyes: No Eye Pain, No Swelling Cardiovascular : No Chest Pain, no palpitations Respiratory : No Cough, No Sputum, no shortness of breath Gastrointestinal : no Nausea, No Vomiting, No Diarrhea, No abdominal Pain, no black stools Genitourinary : No Dysuria, No Urinary Frequency Musculoskeletal : No joint pain, No Myalgias, No Joint Swelling Skin : No Skin Lesions, No rash Neuro : No Weakness, No Numbness, No Dizziness, No Headache Psych : No Anxiety/Panic, No Depression Heme/Lymph: No Bruising, No Lymphadenopathy Endocrine : No Polyuria, No Polydipsia All other systems reviewed and are negative [facility] Past Medical History Medical History (Updated 03/30/21 @ 18:21 by Rodrick Reilly MD) COPD (chronic obstructive pulmonary disease) Diabetes Dysphagia alcohol syndrome HTN (hypertension) Hyperlipidemia Paranoia Social History Social History Alcohol intake: never Smoking Status: Current every day smoker Use of substances other than those prescribed or required for medical reasons: No Substance Use Type: Crack/Cocaine Advance Directives: No Advance Directives Information Provided: Yes Physical Exam Vital Signs: Vital Signs: Last Vital Signs Temp 98 F 03/30/21 18:35 Pulse 110 H 03/30/21 18:35 Resp 18 03/30/21 18:35 BP 122/76 03/30/21 18:35 Pulse Ox 95 03/30/21 18:35 Body Mass Index 25.7 Appearance: Alert. Oriented X3. No acute distress. alcohol syndrome features++ Eyes: PERRLA, No Nystagmus ENT: Pharynx normal. Oral Mucosa moist Neck: Normal inspection. Neck supple. CVS: Normal heart rate and rhythm. Pulses normal. Respiratory: No respiratory distress. Equal air entry bilateral, no wheezing/rales/rhonchi Abdomen: Soft and nontender. Bowel sounds are present, no mass palpable, no CVA tenderness Rectal: Brown stool, guaiac negative Skin: Skin warm and dry. Normal skin color. Normal skin turgor. Extremities: No lower extremity edema. No calf tenderness Neuro: Oriented X 3. No motor deficit. No sensory deficit.No cerebellar signs , cranial nerves II-XII intact Medical Decision Making MDM Narrative Medical decision making narrative: Patient iron deficiency anemia guaiac negative orthostatics normal no shortness of breath no findings of acute decompensation. patient does not need any acute blood transfusion at this time. Will start him on iron tablets advised to follow-up with PCP Lab Data Lab results reviewed: Yes I reviewed the patient's lab results. Result diagrams: 03/30/21 16:26 03/30/21 16:26 Labs: Lab Results 03/30/21 03/30/21 03/30/21 Range/Units 16:26 16:26 17:07 WBC 5.6 (4.8-10.8) X10*3/uL RBC 3.92 L (4.60-5.80) X10*6/uL Hgb 7.5 L (14.0-18.0) g/dl Hct 26.5 L (42-52) % MCV 67.6 L (80-98) fL MCH 19.1 L (27.0-33.0) pg MCHC 28.3 L (31.0-36.0) g/dl RDW 17.2 H (11.0-16.0) % Plt Count 291 (160-400) X10*3/uL MPV 9.2 L (9.4-12.4) fL Immature Gran % (Auto) 0.4 (0.0-0.4) % Neut % (Auto) 67.8 (45-73) % Lymph % (Auto) 19.6 L (20-40) % [place] % (Auto) 10.7 (2-11) % Eos % (Auto) 0.4 (0-4) % Baso % (Auto) 1.1 (0-2) % Lymph # (Auto) 1.1 L (1.2-4.9) X10*3/uL [place] # (Auto) 0.6 (0.1-1.2) X10*3/uL Eos # (Auto) 0.0 (0.0-0.4) X10*3/uL Baso # (Auto) 0.1 (0.0-0.2) X10*3/uL Abs Immat Gran (auto) 0.02 (0.00-0.03) X10*3/uL Absolute Neuts (auto) 3.8 (2.0-8.3) X10*3/uL Absolute Nucleated RBC 0.000 (0.0-0.012) X10*3/uL Nucleated RBC % (auto) 0.0 (0.0-0.2) /100WBC Sodium 137 (135-145) mmol/L Potassium 5.1 (3.3-5.1) mmol/L Chloride 103 (96-108) mmol/L Carbon Dioxide 28 (22-29) mmol/L Anion Gap 11 L (12-20) BUN 18 H (9-16) mg/dL Creatinine 1.32 (0.5-1.4) mg/dL Estim Creat Clear Calc 54.1 Estimated GFR 57 Random Glucose 121 H D (60-115) mg/dL Calcium 9.0 (8.4-10.2) mg/dL Iron 14 L (45-160) mcg/dL TIBC 508 H (228-428) mcg/dL % Saturation 3 L (15-50) % Unsat Iron Binding 494 ug/dL Stool Occult Blood NEGATIVE (NEGATIVE) Discharge Plan Discharge Clinical Impression: Chronic iron deficiency anemia Patient Disposition: Home, Self-Care Instructions: Iron Deficiency Anemia (ED) Additional Instructions: Start taking iron pill advised daily Follow-up with PCP/[employer] Recheck hemoglobin in 1 week Prescriptions: New ferrous sulfate 324 mg (65 mg iron) tablet,delayed release (DR/EC) 324 mg PO DAILY Qty: 30 RF: 3 No Action clozapine 100 mg tablet 3 tab PO BEDTIME RF: 0 aspirin 81 mg tablet,delayed release (DR/EC) 1 tab PO DAILY RF: 0 simvastatin 40 mg tablet 1 tab PO BEDTIME RF: 0 metformin 1,000 mg tablet 1 tab PO BID RF: 0 benztropine 1 mg tablet 1 tab PO BID RF: 0 budesonide 0.5 mg/2 mL suspension for nebulization 1 vial inhalation BID RF: 0 perphenazine 8 mg tablet 1 tab PO BEDTIME RF: 0 albuterol sulfate [ProAir HFA] 90 mcg/actuation HFA aerosol inhaler 1 inh inhalation QID PRN (Reason: shortness of breath or wheezing) Qty: 18 RF: 0 prednisone 20 mg tablet 40 mg PO DAILY Qty: 10 RF: 0 doxycycline monohydrate 100 mg capsule 100 mg PO BID 7 Days Qty: 14 RF: 0 dexamethasone [Decadron] 4 mg tablet 4 mg PO DAILY Qty: 5 RF: 0 Interventions: ED Discharge Assessment Last Done: 03/30/21 19:43 Discharge Date/Time: 03/30/21 19:45
[2021-03-30 16:33] LABS: Basophils Absolute Auto 0.1 X10*3/uL (0.0-0.2); Basophils Percent Auto 1.1 % (0-2); Eosinophils Percent Auto 0.4 % (0-4); Hematocrit 26.5 % (42-52); Hemoglobin 7.5 g/dl (14.0-18.0); Imm Gran Abs Auto 0.02 X10*3/uL (0.00-0.03); Imm Gran Pct Auto 0.4 % (0.0-0.4); Lymphocytes Absolute Auto 1.1 X10*3/uL (1.2-4.9); Lymphocytes Percent Auto 19.6 % (20-40); Mean Corpuscular HGB Conc 28.3 g/dl (31.0-36.0); Mean Corpuscular Hemoglobin 19.1 pg (27.0-33.0); Mean Corpuscular Volume 67.6 fL (80-98); Mean Platelet Volume 9.2 fL (9.4-12.4); Monocytes Absolute Auto 0.6 X10*3/uL (0.1-1.2); Monocytes Percent Auto 10.7 % (2-11); Neutrophils Absolute Auto 3.8 X10*3/uL (2.0-8.3); Neutrophils Percent Auto 67.8 % (45-73); Platelet Count 291 X10*3/uL (160-400); Red Blood Count 3.92 X10*6/uL (4.60-5.80); Red Cell Distribution Width 17.2 % (11.0-16.0); White Blood Count 5.6 X10*3/uL (4.8-10.8)
[2021-03-30 17:03] LABS: Anion Gap 11 (12-20); Blood Urea Nitrogen 18 mg/dL (9-16); Carbon Dioxide 28 mmol/L (22-29); Chloride 103 mmol/L (96-108); Creatinine Clr Calc Pharmacy 54.1; Estimated Glomerular Filt Rate 57; Glucose Random 121 mg/dL (60-115); Potassium 5.1 mmol/L (3.3-5.1); Sodium 137 mmol/L (135-145)
[2021-03-30 17:28] LABS: OBS Int Ctl Valid YES; OBS1 NEGATIVE (NEGATIVE)
[2021-03-30 17:32] LABS: Iron 14 mcg/dL (45-160); Percent Iron Saturation 3 % (15-50); Total Iron Binding Capacity 508 mcg/dL (228-428); Unsaturated Iron Binding 494 ug/dL
[2021-03-30 18:27] VITALS: BP 113/72; BP 122/76; PULSE 108; PULSE 113
[2021-03-30] MEDS: Ferrous Sulfate 324 MG TABLET.DR PO (18:28)
[2021-03-30 18:35] VITALS: BP 122/76; PULSE 110; RESP 18; TEMP 36.6; O2SAT 95
== END 2021-03-30 19:45 | disposition home or self-care (01) ==
PROVIDERS: Emergency Provider Internal Medicine; PCP Family Medicine
DX: D50.9 Iron deficiency anemia, unspecified (principal); R79.89 Other specified abnormal findings of blood chemistry; I10 Essential (primary) hypertension; F14.90 Cocaine use, unspecified, uncomplicated; Z79.899 Other long term (current) drug therapy
CPT/HCPCS: 36415; 80048; 82272; 83540; 85025; 99284

== ENCOUNTER 2021-04-22 20:51 | Emergency (ER) | payer OTHER, SELFPAY ==
[2021-04-22 21:15] VITALS: BP 138/74; PULSE 89; RESP 18; TEMP 36.6; O2SAT 95; BMI 26.4
[2021-04-22 21:38] LABS: MANUAL DIFF FLAG NO
[2021-04-22 21:44] LABS: Basophils Absolute Auto 0.1 X10*3/uL (0.0-0.2); Eosinophils Percent Auto 0.4 % (0-4); Hematocrit 26.3 % (42-52); Hemoglobin 7.5 g/dl (14.0-18.0); Imm Gran Abs Auto 0.01 X10*3/uL (0.00-0.03); Imm Gran Pct Auto 0.2 % (0.0-0.4); Lymphocytes Absolute Auto 1.2 X10*3/uL (1.2-4.9); Lymphocytes Percent Auto 23.3 % (20-40); Mean Corpuscular HGB Conc 28.5 g/dl (31.0-36.0); Mean Corpuscular Hemoglobin 19.5 pg (27.0-33.0); Mean Corpuscular Volume 68.5 fL (80-98); Monocytes Absolute Auto 0.5 X10*3/uL (0.1-1.2); Monocytes Percent Auto 9.6 % (2-11); Neutrophils Absolute Auto 3.4 X10*3/uL (2.0-8.3); Neutrophils Percent Auto 65.5 % (45-73); Platelet Count 326 X10*3/uL (160-400); Red Blood Count 3.84 X10*6/uL (4.60-5.80); Red Cell Distribution Width 18.4 % (11.0-16.0); White Blood Count 5.2 X10*3/uL (4.8-10.8)
[2021-04-22 22:19] LABS: Anion Gap 12 (12-20); Blood Urea Nitrogen 28 mg/dL (9-16); Calcium 8.9 mg/dL (8.4-10.2); Carbon Dioxide 26 mmol/L (22-29); Chloride 101 mmol/L (96-108); Creatinine Clr Calc Pharmacy 57.1; Estimated Glomerular Filt Rate > 60; Glucose Random 200 mg/dL (60-115); Sodium 134 mmol/L (135-145)
--- NOTE | 2021-04-22 23:06 | ED.RECABL ---
HPI - Recheck/Abnormal Lab/Rx General Chief Complaint: Recheck/Abnormal Lab/Rx Stated Complaint: ABNORMAL LABS Time Seen by Provider: 04/22/21 23:06 Source: patient Mode of arrival: EMS History of Present Illness HPI narrative: This is a 55-year-old male who is brought in by EMS from a [facility] after morning lab work showed an elevated potassium of 6.1. On questioning the patient he denies any shortness of breath, chest pain/palpitations and states that he has been eating and drinking well and denies any abdominal pain or diarrhea. In addition patient denies any urinary symptoms and states that he is been urinating very well. Related Data Home Medications Medication Instructions Recorded Confirmed aspirin 1 tab PO DAILY 10/07/20 10/07/20 benztropine 1 tab PO BID 10/07/20 10/07/20 budesonide 1 vial INHALATION BID 10/07/20 10/07/20 clozapine 3 tab PO BEDTIME 10/07/20 10/07/20 metformin 1 tab PO BID 10/07/20 10/07/20 perphenazine 1 tab PO BEDTIME 10/07/20 10/07/20 simvastatin 1 tab PO BEDTIME 10/07/20 10/07/20 Previous Rx's Medication Instructions Recorded albuterol sulfate [ProAir HFA] 1 inh INHALATION QID PRN #18 g 10/07/20 dexamethasone [Decadron] 4 mg PO DAILY #5 tab 10/12/20 doxycycline monohydrate 100 mg PO BID 7 Days #14 cap 10/12/20 prednisone 40 mg PO DAILY #10 tab 10/12/20 ferrous sulfate 324 mg PO DAILY #30 tab 03/30/21 Allergies Allergy/AdvReac Type Severity Reaction Status Date / Time No Known Allergies Allergy Unverified 08/05/20 17:35 Review of Systems Review of Systems: Pertinent positives and negatives as stated in HPI 10 point review of systems otherwise negative. [facility] Past Medical History Source: nursing notes reviewed Medical History COPD (chronic obstructive pulmonary disease) Diabetes Dysphagia alcohol syndrome HTN (hypertension) Hyperlipidemia Paranoia Social History Social History Alcohol intake: never Substance Use Type: Crack/Cocaine Advance Directives: No Advance Directives Information Provided: No Physical Exam Vital Signs: Vital Signs: Last Vital Signs Temp 97.9 F 04/22/21 21:15 Pulse 89 04/22/21 21:15 Resp 18 04/22/21 21:15 BP 138/74 04/22/21 21:15 Pulse Ox 95 04/22/21 21:15 Body Mass Index 26.4 VITAL SIGNS: Reviewed. GENERAL: Well developed, well nourished, in no acute distress. HEAD: Normocephalic/atraumatic EYES: PERRLA, EOMI OROPHARYNX: no oral lesions noted, posterior pharynx clear NECK: Supple, no adenopathy LUNGS: Normal breath sounds. No adventitious sounds or accessory muscle use. SpO2<95> CARDIOVASCULAR: Regular rate and rhythm without noted murmurs, no JVD or lower extremity edema. ABDOMEN: Soft, non-tender, non-distended with bowel sounds. NEUROLOGIC: Alert and oriented x 4. Strength and sensation to light touch were grossly intact x 4. Course Course Course Narrative: 55-year-old male with history and clinical presentation consistent with laboratory findings of an elevated potassium which is found to be here in this ER to be within normal limits at 5.0. Review of all investigations negative for any acute findings from chronically stable. On review of hemoglobin specifically patient was started on iron supplementation and has had no worsening of symptoms and is currently asymptomatic without evidence on review of vital signs of tachycardia or hypotension. Patient was [facility] back to his [facility] in stable condition. MDM - Recheck/Abnormal Lab/Rx Lab Data Result diagrams: 04/22/21 21:34 04/22/21 21:34 Labs: Lab Results 04/22/21 04/22/21 Range/Units 21:34 21:34 WBC 5.2 (4.8-10.8) X10*3/uL RBC 3.84 L (4.60-5.80) X10*6/uL Hgb 7.5 L (14.0-18.0) g/dl Hct 26.3 L (42-52) % MCV 68.5 L (80-98) fL MCH 19.5 L (27.0-33.0) pg MCHC 28.5 L (31.0-36.0) g/dl RDW 18.4 H (11.0-16.0) % Plt Count 326 (160-400) X10*3/uL MPV 10.0 (9.4-12.4) fL Immature Gran % (Auto) 0.2 (0.0-0.4) % Neut % (Auto) 65.5 (45-73) % Lymph % (Auto) 23.3 (20-40) % [place] % (Auto) 9.6 (2-11) % Eos % (Auto) 0.4 (0-4) % Baso % (Auto) 1.0 (0-2) % Lymph # (Auto) 1.2 (1.2-4.9) X10*3/uL [place] # (Auto) 0.5 (0.1-1.2) X10*3/uL Eos # (Auto) 0.0 (0.0-0.4) X10*3/uL Baso # (Auto) 0.1 (0.0-0.2) X10*3/uL Abs Immat Gran (auto) 0.01 (0.00-0.03) X10*3/uL Absolute Neuts (auto) 3.4 (2.0-8.3) X10*3/uL Absolute Nucleated RBC 0.000 (0.0-0.012) X10*3/uL Nucleated RBC % (auto) 0.0 (0.0-0.2) /100WBC Sodium 134 L (135-145) mmol/L Potassium 5.0 (3.3-5.1) mmol/L Chloride 101 (96-108) mmol/L Carbon Dioxide 26 (22-29) mmol/L Anion Gap 12 (12-20) BUN 28 H D (9-16) mg/dL Creatinine 1.20 (0.5-1.4) mg/dL Estim Creat Clear Calc 57.1 Estimated GFR > 60 Random Glucose 200 H D (60-115) mg/dL Calcium 8.9 (8.4-10.2) mg/dL Discharge Plan Discharge Clinical Impression: General medical exam Patient Disposition: Home, Self-Care Additional Instructions: 1. Please resume all home medications as prescribed. 2. Please follow-up with your primary care provider in the next 1-2 days for re-evaluation. Return to the ER for any acute worsening of your symptoms. Prescriptions: No Action clozapine 100 mg tablet 3 tab PO BEDTIME RF: 0 aspirin 81 mg tablet,delayed release (DR/EC) 1 tab PO DAILY RF: 0 simvastatin 40 mg tablet 1 tab PO BEDTIME RF: 0 metformin 1,000 mg tablet 1 tab PO BID RF: 0 benztropine 1 mg tablet 1 tab PO BID RF: 0 budesonide 0.5 mg/2 mL suspension for nebulization 1 vial inhalation BID RF: 0 perphenazine 8 mg tablet 1 tab PO BEDTIME RF: 0 albuterol sulfate [ProAir HFA] 90 mcg/actuation HFA aerosol inhaler 1 inh inhalation QID PRN (Reason: shortness of breath or wheezing) Qty: 18 RF: 0 prednisone 20 mg tablet 40 mg PO DAILY Qty: 10 RF: 0 doxycycline monohydrate 100 mg capsule 100 mg PO BID 7 Days Qty: 14 RF: 0 dexamethasone [Decadron] 4 mg tablet 4 mg PO DAILY Qty: 5 RF: 0 ferrous sulfate 324 mg (65 mg iron) tablet,delayed release (DR/EC) 324 mg PO DAILY Qty: 30 RF: 3 Referrals: Physician,Unknown [Primary Care Provider] - 2 days
== END 2021-04-23 00:18 | disposition home or self-care (01) ==
PROVIDERS: Emergency Provider Student in an Organized Health Care Education/Training Program
DX: Z03.89 Encounter for observation for other suspected diseases and conditions ruled out (principal); E11.9 Type 2 diabetes mellitus without complications; I10 Essential (primary) hypertension; J44.9 Chronic obstructive pulmonary disease, unspecified; E78.5 Hyperlipidemia, unspecified; Z79.82 Long term (current) use of aspirin; Z79.899 Other long term (current) drug therapy; Z79.02 Long term (current) use of antithrombotics/antiplatelets; Z79.84 Long term (current) use of oral hypoglycemic drugs
CPT/HCPCS: 36415; 80048; 85025; 99283; 99284

== ENCOUNTER 2021-04-25 14:43 | Inpatient (IN) | payer OTHER, SELFPAY ==
[2021-04-25] VITALS (8 sets, daily range): BP systolic 90–111; BP diastolic 46–62; PULSE 104–119; RESP 18–37; TEMP 36.9–37.2; O2SAT 96–98; BMI 26.6
--- NOTE | 2021-04-25 | ECG_ITS ---
Test Reason : DIZZINESS Blood Pressure : / mmHG Vent. Rate : 104 BPM Atrial Rate : 104 BPM P-R Int : 174 ms QRS Dur : 076 ms QT Int : 324 ms P-R-T Axes : 067 075 055 degrees QTc Int : 426 ms Sinus tachycardia Otherwise normal ECG When compared with ECG of 12-OCT-2020 09:44, No significant change was found Referred By: Yakov Orozco Electronically Signed By:RAMÓN HENAO MD
--- NOTE | 2021-04-25 | ECG_ITS ---
Test Reason : high K Blood Pressure : / mmHG Vent. Rate : 116 BPM Atrial Rate : 116 BPM P-R Int : 176 ms QRS Dur : 078 ms QT Int : 310 ms P-R-T Axes : 072 078 061 degrees QTc Int : 430 ms Sinus tachycardia Otherwise normal ECG No previous ECGs available Referred By: Yakov Orozco Electronically Signed By:RAMÓN HENAO MD
--- NOTE | ~2021-04-25 | XR_ITS ---
EXAMINATION: XR CHEST CLINICAL INFORMATION: Dizziness and fall COMPARISON: Previous chest x-ray September 2020 TECHNIQUE: 2 views of the chest were obtained. FINDINGS: The cardiac and mediastinal contours are stable. The lungs are clear. There is no pleural effusion or pneumothorax. There are old right rib fractures. Bony structures are otherwise unremarkable. XR/XR chest 2V IMPRESSION: Unremarkable examination.
--- NOTE | ~2021-04-25 | US_ITS ---
EXAMINATION: US RETROPERITONEAL LIMITED (RENAL ONLY) CLINICAL INFORMATION: Worsening renal function. COMPARISON: None TECHNIQUE: Renal ultrasound was performed FINDINGS: RIGHT KIDNEY: 9.9 x 4.5 x 5.2 cm (SAG x AP x TRV). The kidney is normal in size, contour, and echogenicity. Renal cortical thickness is normal. No calculi or focal parenchymal lesions. No hydronephrosis. LEFT KIDNEY: 7.5 x 4.1 x 4.4 cm (SAG x AP x TRV) -this may not be an accurate measurement due to quality of the scan. Left kidney is suboptimally seen due to body habitus. The kidney is probably normal in size, contour, and echogenicity. Renal cortical thickness is normal. No calculi or focal parenchymal lesions. No hydronephrosis. US/US renal BI IMPRESSION: No hydronephrosis or any other abnormality which may be contributing to worsening renal failure..
--- NOTE | ~2021-04-25 | CT_ITS ---
EXAMINATION: CT HEAD WITHOUT CONTRAST CLINICAL INFORMATION: Dizziness. COMPARISON: CT brain 02/24/2017 TECHNIQUE: Contiguous axial imaging was performed from the skull base to vertex without intravenous administration of contrast. This CT examination was performed using dose optimization techniques as appropriate, variously including the following: *Automated exposure control *Adjustment of mA and/or kV according to patient size (this includes techniques or standardized protocols for targeted exams where dose is matched to indication/reason for exam; i.e. extremities or head) *Use of iterative reconstruction technique DLP: 644 mGy-cm FINDINGS: There is no evidence of acute intracranial hemorrhage or territorial infarction. No abnormal mass effect or midline shift is seen. [place] to white matter differentiation is well preserved. No extra-axial fluid collections are identified. The lateral ventricles are symmetrical in size but mildly enlarged. There is no edema. The osseous structures and soft tissues are normal. There is minimal mucoperiosteal thickening bilateral ethmoid and left frontal sinuses. Bilateral hypertrophic inferior turbinate changes are noted. CT/CT head/brain wo con IMPRESSION: No acute intracranial process seen. Bilateral ethmoid and left frontal sinus inflammatory changes.
[2021-04-25 14:55] LABS: Glucose, Whole Blood 144 mg/dL (60-115)
--- NOTE | 2021-04-25 15:53 | ED_ITS ---
HPI - Fall General Chief Complaint: Fall <Yakelin Pina NP - Last Filed: 04/25/21 20:12> Stated Complaint[facility]ELBOW PA[facility] <Yakelin Pina NP - Last Filed: 04/25/21 20:12> Time Seen by Provider: 04/25/21 15:31 <Yakelin Pina NP - Last Filed: 04/25/21 20:12> Source: EMS <Yakelin Pina NP - Last Filed: 04/25/21 20:12> Mode of arrival: EMS <Yakelin Pina NP - Last Filed: 04/25/21 20:12> Limitations: no limitations <Yakelin Pina NP - Last Filed: 04/25/21 20:12> History of Present Illness HPI Narrative: 55-year-old male with a past medical history of diabetes, schizoaffective disorder, depression, alcohol syndrome, obstructive sleep apnea and hyperlipidemia coming from a [facility] after a fall. Per EMS the patient was witnessed to have a trip and fall on a carpet catching himself with his hands. There is no reports of head injury or loss of consciousness. On arrival however the patient tells me that when he stood up he started to feel very dizzy and Tigre is why he fell. He denies any dizziness at this point while he is at rest and denies any chest pain, shortness of breath, headache or neck pain. <Yakelin Pina NP - Last Filed: 04/25/21 20:12> Related Data Home Medications: Home Medications Medication Instructions Recorded Confirmed benztropine 1 tab PO BID 10/07/20 05/02/21 budesonide 1 vial INHALATION BID 10/07/20 05/02/21 clozapine 3 tab PO BEDTIME 10/07/20 05/02/21 perphenazine 8 mg PO BEDTIME 10/07/20 05/02/21 simvastatin 40 mg PO BEDTIME 10/07/20 05/02/21 Invega Sustenna 156 mg IM Q28D 04/25/21 05/02/21 Lantus Solostar U-100 Insulin 40 unit SUBCUT DAILY 04/25/21 05/02/21 acetaminophen [Tylenol] 650 mg PO Q6H PRN 04/25/21 05/02/21 albuterol sulfate [ProAir HFA] 2 inh INHALATION QID PRN 04/25/21 05/02/21 ferrous sulfate 324 mg PO BID 04/25/21 05/02/21 ipratropium-albuterol 3 ml INHALATION Q6H PRN 04/25/21 05/02/21 paroxetine HCl 40 mg PO DAILY 04/25/21 05/02/21 perphenazine 16 mg PO BID 04/25/21 05/02/21 Previous Rx's Medication Instructions Recorded pantoprazole [Protonix] 40 mg PO BID #60 tab 04/28/21 amoxicillin-pot clavulanate 875 mg PO Q12H #10 tab 05/05/21 magnesium oxide 400 mg PO BIDPC #60 tab 05/05/21 <Yakelin Pina NP - Last Filed: 04/25/21 20:12> Allergies/Adverse Reactions: Allergies Allergy/AdvReac Type Severity Reaction Status Date / Time prednisone Allergy Unknown Verified 05/14/21 20:11 <Yakelin Pina NP - Last Filed: 04/25/21 20:12> Review of Systems Review of Systems: Yes all other systems are reviewed and are negative <Yakelin Pina NP - Last Filed: 04/25/21 20:12> Constitutional: Constitutional: Reports no additional constitutional complaints, Denies body ache(s), Denies chills, Denies fever(s), Denies he adache(s) and Denies weakness <Yakelin Pina NP - Last Filed: 04/25/21 20:12> Eyes: Eyes: Reports no additional eye complaints and Denies change in vision <Yakelin Pina NP - Last Filed: 04/25/21 20:12> ENT: Reports system reviewed and no additional complaints, except as documented, Reports dizziness, Denies headache(s), Denies nasal congestion, Denies nasal discharge and Denies neck pain <Yakelin Pina NP - Last Davon ed: 04/25/21 20:12> Cardiovascular: Cardiovascular: Reports no additional cardiovascular complaints, Denies chest pain, Denies leg edema and Denies dyspnea <Yakelin Pina NP - Last Filed: 04/25/21 20:12> Respiratory: Respiratory: Reports no additional respiratory complaints, Denies cough and Denies dyspnea <Yakelin Pina NP - Last Filed: 04/25/21 20:12> Gastrointestinal: Gastrointestinal: Reports no additional gastrointestinal complaints, Denies abdominal pain, Denies diarrhea, Denies nausea and Denies vomiting <Yakelin Pina NP - Last Filed: 04/25/21 20:12> Genitourinary: Genitourinary: Denies urinary incontinence <Yakelin Pina NP - Last Filed: 04/25/21 20:12> Musculoskeletal: Musculoskeletal: Reports no additional musculoskeletal complaints, Denies back pain, Denies arthralgias, Denies joint swelling, Denies neck pain, Denies numbness and Denies tingling <Yakelin Pina NP - Last Filed: 04/25/21 20:12> Integumentary/Breasts: Skin/Breast: Reports system reviewed and no additional complaints, except as docu and Denies rash <Yakelin Pina NP - Last File d: 04/25/21 20:12> Neurologic: Reports system reviewed and no additional complaints, except as documented, Denies Abnormal speech present, Reports dizziness, Denies headache(s), Denies numbness, Denies tingling and Denies weakness <Yakelin Pina NP - Last Filed: 04/25/21 20:12> PMFSH Past Medical History Attestation statement: The following information was validated with the patient. <Yakelin Pina NP - Last Filed: 04/25/21 20:12> Source: nursing notes reviewed <Yakelin Pina NP - Last Filed: 04/25/21 20:12> Medical History: Medical History SANDIP (acute kidney injury) Aspiration pneumonia COPD (chronic obstructive pulmonary disease) Depression Diabetes Dysphagia Esophagitis with gastritis alcohol syndrome HTN (hypertension) Hyperkalemia Hyperkalemia Hyperlipidemia Internal hemorrhoids Internal hemorrhoids Iron deficiency anemia Iron deficiency anemia Obstructive sleep apnea Paranoia Schizo-affective schizophrenia <Yakelin Pina NP - Last Filed: 04/25/21 20:12> Surgical History: Surgical History H/O endoscopy <Yakelin Pina NP - Last Filed: 04/25/21 20:12> Social History Social History: Social History Household Members: Other Housing: Other Housing Other:: [facility] Do you presently have visiting nurse or other home services: No Unable to assess alcohol history related to: Unknown Alcohol intake: never Patient Tobacco Use Status: Current everyday Tobacco user e-Cigarette/Vaping Use: Currently Using Second Hand Smoke Exposure: No Use of substances other than those prescribed or required for medical reasons: No Substance Use Type: Crack/Cocaine Advance Directives: No Advance Directives Information Provided: No service: No Current occupational status: disabled <Yakelin Pina NP - Last Filed: 04/25/21 20:12> Physical Exam Vital Signs: Vital Signs: Last Vital Signs Temp 97.1 F 04/28/21 11:51 Pulse 85 04/28/21 11:51 Resp 04/28/21 11:51 BP 141/81 H 04/28/21 11:51 Pulse Ox 94 04/28/21 11:51 Body Mass Index 26.6 <Yakelin Pina NP - Last Filed: 04/25/21 20:12> Vital Signs: Last Vital Signs Temp 97.1 F 04/28/21 11:51 Pulse 85 04/28/21 11:51 Resp 04/28/21 11:51 BP 141/81 H 04/28/21 11:51 Pulse Ox 94 04/28/21 11:51 Body Mass Index 26.6 <Richard Tam MD - Last Filed: 06/02/21 14:59> Const: General: cooperative <Yakelin Pina NP - Last Filed: 04/25/21 20:12> Orientation/consciousness: patient oriented x3 <Yakelin Pina NP - Last Filed: 04/25/21 20:12> Limitations: no limitations <Yakelin Pina NP - Last Filed: 04/25/21 20:12> HENMT: Head: Yes normal to inspection <Yakelin Pina NP - Last Filed: 04/25/21 20:12> Ears: hearing grossly normal bilaterally and TM's normal bilaterally <Yakelin Pina NP - Last Filed: 04/25/21 20:12> General nose exam: Normal external nose present <Yakelin Pina NP - Last Filed: 04/25/21 20:12> Face and sinus: Yes normal facial exam <Yakelin Pina NP - Last Filed: 04/25/21 20:12> Mouth: Normal oral and palatal mucosa present <Yakelin Pina NP - Last Filed: 04/25/21 20:12> Throat: Yes posterior oropharynx normal, Yes tonsils normal and Yes uvula midline <Yakelin Pina NP - Last Filed: 04/25/21 20:12> Eyes: General: appearance normal, both eyes and all related structures <Yakelin Pina NP - Last Filed: 04/25/21 20:12> Pupils: Equal, round and reactive pupils present <Yakelin Pina NP - Last Filed: 04/25/21 20:12> Neck: Neck: Yes normal visual inspection, Yes full ROM and Yes no lymphadenopathy <Yakelin Pina NP - Last Filed: 04/25/21 20:12> Chest: Chest palpation & inspection: normal inspection of the chest <BAY Steele Last Filed: 04/25/21 20:12> Resp: Effort & Inspection: normal respiratory effort <Yakelin Pina NP - Last Filed: 04/25/21 20:12> Auscultation: clear to auscultation bilaterally <Yakelin Pina NP - Last Filed: 04/25/21 20:12> Cardio: Rate: regular rate <Yakelin Pina NP - Last Filed: 04/25/21 20:12> Rhythm: regular rhythm <Yakelin Pina NP - Last Filed: 04/25/21 20:12> Peripheral pulses: Peripheral pulses 2+ throughout <Yakelin Pina NP - Last Filed: 04/25/21 20:12> GI: Inspection: Yes normal to inspection <Yakelin Pina NP - Last Filed: 04/25/21 20:12> Palpation (GI): Soft to palpation and nontender <Yakelin Pina NP - Last Filed: 04/25/21 20:12> Auscultation: normal bowel sounds <Yakelin Pina NP - Last Filed: 04/25/21 20:12> Back/Spine/Pelvis: Thoracic/Lumbar Spine: thoracic and lumbar spine normal to inspection <Yakelin Pina NP - Last Filed: 04/25/21 20:12> Skin: General skin exam: no rashes or lesions noted <Yakelin Pina NP - Last Filed: 04/25/21 20:12> Neuro: General: patient oriented x3, Normal light touch and pain sensation, no focal motor deficits and normal sensation to monofilament <Yakelin Pina NP - Last Filed: 04/25/21 20:12> Cranial nerves: Yes CN's II-XII intact bilaterally, Yes Equal, round and reactive pupils present, Yes Bilaterally intact EOM present, Yes Nystagmus not present, Yes Normal facial strength present and Yes Midline tongue present <Yakelin Pina NP - Last Filed: 04/25/21 20:12> Cognition (Neuro): normal cognition <Yakelin Pina NP - Last Filed: 04/25/21 20:12> Speech: No Abnormal speech present <Yakelin Pina NP - Last Filed: 04/25/21 20:12> Gait exam (Neuro): Normal gait present <Yakelin Pina NP - Last Filed: 04/25/21 20:12> Motor exam (neuro): 5/5 motor strength present throughout <Yakelin Pina NP - Last Filed: 04/25/21 20:12> Sensory Exam: Normal double simultaneous stimulation for sensation <Yakelin Pina NP - Last Filed: 04/25/21 20:12> Extrem: General: Yes normal to inspection, Yes no pedal edema and Yes no calf tenderness <BAY Steele Last Filed: 04/25/21 20:12> Course Course Course Narrative: 55-year-old male here status post reported mechanical fall however per patient he felt lightheaded and dizzy when he started moving and not his why he fell. He is neurologically intact. No deficits. Alert and oriented not his baseline. Will need labs, EKG, chest x-ray, CT head and orthostatic vital signs. 1600-orthostatics show a increase in heart rate and a decrease in blood pressure with reports of dizziness. Hypotension secondary to dehydration and not infection. Patient given a normal saline bolus and will re-evaluate 1703-labs showed acute kidney injury with an elevated potassium. Insulin, dextrose and Kayexalate ordered. No EKG changes. CV shows microcytic anemia which is unchanged from baseline consistent with STEPHANIE. Imaging unremarkable. Patient will need admission. 1730-discussed with Jaky Pineda nurse practitioner who accepted patient for admission <Yakelin Pina NP - Last Filed: 04/25/21 20:12> I have reviewed the chart <Richard Tam MD - Last Filed: 06/02/21 14:59> MDM - Fall MDM Narrative Medical decision making narrative: Near syncope, orthostatic hypotension, hypoglycemia, anemia, electrolyte abnormality, mechanical fall <Yakelin Pina NP - Last Filed: 04/25/21 20:12> Medical Records Attestation: I reviewed the patient's medical records. <Yakelin Pina NP - Last Filed: 04/25/21 20:12> Lab Data Attestation: I reviewed the patient's lab results. <Yakelin Pina NP - Last Filed: 04/25/21 20:12> Result diagrams: : 04/28/21 06:10 04/28/21 06:10 <Yakelin Pina NP - Last Filed: 04/25/21 20:12> Labs: Lab Results 04/25/21 04/25/21 04/25/21 Range/Units 14:50 15:57 15:57 WBC 8.9 (4.8-10.8) X10*3/uL RBC 4.12 L (4.60-5.80) X10*6/uL Hgb 8.2 L (14.0-18.0) g/dl Hct 28.4 L (42-52) % MCV 68.9 L (80-98) fL MCH 19.9 L (27.0-33.0) pg MCHC 28.9 L (31.0-36.0) g/dl RDW 18.8 H (11.0-16.0) % Plt Count 344 (160-400) X10*3/uL MPV 9.8 (9.4-12.4) fL Immature Gran % (Auto) 0.3 (0.0-0.4) % Neut % (Auto) 79.5 H (45-73) % Lymph % (Auto) 10.9 L (20-40) % [place] % (Auto) 8.5 (2-11) % Eos % (Auto) 0.1 (0-4) % Baso % (Auto) 0.7 (0-2) % Lymph # (Auto) 1.0 L (1.2-4.9) X10*3/uL [place] # (Auto) 0.8 (0.1-1.2) X10*3/uL Eos # (Auto) 0.0 (0.0-0.4) X10*3/uL Baso # (Auto) 0.1 (0.0-0.2) X10*3/uL Abs Immat Gran (auto) 0.03 (0.00-0.03) X10*3/uL Absolute Neuts (auto) 7.1 (2.0-8.3) X10*3/uL Absolute Nucleated RBC 0.000 (0.0-0.012) X10*3/uL Nucleated RBC % (auto) 0.0 (0.0-0.2) /100WBC Sodium 136 (135-145) mmol/L Potassium 6.5 H* D (3.3-5.1) mmol/L Chloride 105 (96-108) mmol/L Carbon Dioxide 21 L (22-29) mmol/L Anion Gap 17 (12-20) BUN 58 H D (9-16) mg/dL Creatinine 2.86 H (0.5-1.4) mg/dL Estim Creat Clear Calc 29.8 Estimated GFR 23 POC Glucose 144 H (60-115) mg/dL Random Glucose 152 H (60-115) mg/dL Calcium 9.1 (8.4-10.2) mg/dL Magnesium 2.4 (1.6-2.6) mg/dL Total Bilirubin 0.4 (0.0-1.0) mg/dL Direct Bilirubin < 0.2 (0.0-0.5) mg/dL AST 22 D (5-37) U/L ALT 19 (0-40) U/L Alkaline Phosphatase 110 D (39-117) U/L Troponin I High Sens (<3.5-35.0) ng/L Total Protein 6.4 L (6.5-8.0) g/dL Albumin 3.8 (3.5-5.0) g/dL Urine Color Urine Appearance Urine pH (5.0-8.0) Ur Specific [place] (1.005-1.025) Urine Protein (NEG-TRACE) MG/DL Urine Glucose (UA) (NEG) MG/DL Urine Ketones (NEG) MG/DL Urine Blood (NEG) Urine Nitrite (NEG) Ur Leukocyte Esterase (NEG) COVID-19 (ANDERS) (Negative) COVID-19 Clin Com 04/25/21 04/25/21 04/25/21 Range/Units 15:57 16:56 17:20 WBC (4.8-10.8) X10*3/uL RBC (4.60-5.80) X10*6/uL Hgb (14.0-18.0) g/dl Hct (42-52) % MCV (80-98) fL MCH (27.0-33.0) pg MCHC (31.0-36.0) g/dl RDW (11.0-16.0) % Plt Count (160-400) X10*3/uL MPV (9.4-12.4) fL Immature Gran % (Auto) (0.0-0.4) % Neut % (Auto) (45-73) % Lymph % (Auto) (20-40) % [place] % (Auto) (2-11) % Eos % (Auto) (0-4) % Baso % (Auto) (0-2) % Lymph # (Auto) (1.2-4.9) X10*3/uL [place] # (Auto) (0.1-1.2) X10*3/uL Eos # (Auto) (0.0-0.4) X10*3/uL Baso # (Auto) (0.0-0.2) X10*3/uL Abs Immat Gran (auto) (0.00-0.03) X10*3/uL Absolute Neuts (auto) (2.0-8.3) X10*3/uL Absolute Nucleated RBC (0.0-0.012) X10*3/uL Nucleated RBC % (auto) (0.0-0.2) /100WBC Sodium (135-145) mmol/L Potassium (3.3-5.1) mmol/L Chloride (96-108) mmol/L Carbon Dioxide (22-29) mmol/L Anion Gap (12-20) BUN (9-16) mg/dL Creatinine (0.5-1.4) mg/dL Estim Creat Clear Calc Estimated GFR POC Glucose (60-115) mg/dL Random Glucose (60-115) mg/dL Calcium (8.4-10.2) mg/dL Magnesium (1.6-2.6) mg/dL Total Bilirubin (0.0-1.0) mg/dL Direct Bilirubin (0.0-0.5) mg/dL AST (5-37) U/L ALT (0-40) U/L Alkaline Phosphatase (39-117) U/L Troponin I High Sens < 3.5 (<3.5-35.0) ng/L Total Protein (6.5-8.0) g/dL Albumin (3.5-5.0) g/dL Urine Color YELLOW Urine Appearance CLEAR Urine pH 5.5 (5.0-8.0) Ur Specific [place] 1.020 (1.005-1.025) Urine Protein NEG (NEG-TRACE) MG/DL Urine Glucose (UA) NEG (NEG) MG/DL Urine Ketones NEG (NEG) MG/DL Urine Blood NEG (NEG) Urine Nitrite NEG (NEG) Ur Leukocyte Esterase NEG (NEG) COVID-19 (ANDERS) Negative (Negative) COVID-19 Clin Com See Note 04/25/21 Range/Units 17:46 WBC (4.8-10.8) X10*3/uL RBC (4.60-5.80) X10*6/uL Hgb (14.0-18.0) g/dl Hct (42-52) % MCV (80-98) fL MCH (27.0-33.0) pg MCHC (31.0-36.0) g/dl RDW (11.0-16.0) % Plt Count (160-400) X10*3/uL MPV (9.4-12.4) fL Immature Gran % (Auto) (0.0-0.4) % Neut % (Auto) (45-73) % Lymph % (Auto) (20-40) % [place] % (Auto) (2-11) % Eos % (Auto) (0-4) % Baso % (Auto) (0-2) % Lymph # (Auto) (1.2-4.9) X10*3/uL [place] # (Auto) (0.1-1.2) X10*3/uL Eos # (Auto) (0.0-0.4) X10*3/uL Baso # (Auto) (0.0-0.2) X10*3/uL Abs Immat Gran (auto) (0.00-0.03) X10*3/uL Absolute Neuts (auto) (2.0-8.3) X10*3/uL Absolute Nucleated RBC (0.0-0.012) X10*3/uL Nucleated RBC % (auto) (0.0-0.2) /100WBC Sodium (135-145) mmol/L Potassium (3.3-5.1) mmol/L Chloride (96-108) mmol/L Carbon Dioxide (22-29) mmol/L Anion Gap (12-20) BUN (9-16) mg/dL Creatinine (0.5-1.4) mg/dL Estim Creat Clear Calc Estimated GFR POC Glucose 132 H (60-115) mg/dL Random Glucose (60-115) mg/dL Calcium (8.4-10.2) mg/dL Magnesium (1.6-2.6) mg/dL Total Bilirubin (0.0-1.0) mg/dL Direct Bilirubin (0.0-0.5) mg/dL AST (5-37) U/L ALT (0-40) U/L Alkaline Phosphatase (39-117) U/L Troponin I High Sens (<3.5-35.0) ng/L Total Protein (6.5-8.0) g/dL Albumin (3.5-5.0) g/dL Urine Color Urine Appearance Urine pH (5.0-8.0) Ur Specific [place] (1.005-1.025) Urine Protein (NEG-TRACE) MG/DL Urine Glucose (UA) (NEG) MG/DL Urine Ketones (NEG) MG/DL Urine Blood (NEG) Urine Nitrite (NEG) Ur Leukocyte Esterase (NEG) COVID-19 (ANDERS) (Negative) COVID-19 Clin Com <Yakelin Pina [employer]ULT[employer] INSPECTOR - Last Filed: 04/25/21 20:12> Lab Results 04/25/21 04/25/21 04/25/21 Range/Units 14:50 15:57 15:57 WBC 8.9 (4.8-10.8) X10*3/uL RBC 4.12 L (4.60-5.80) X10*6/uL Hgb 8.2 L (14.0-18.0) g/dl Hct 28.4 L (42-52) % MCV 68.9 L (80-98) fL MCH 19.9 L (27.0-33.0) pg MCHC 28.9 L (31.0-36.0) g/dl RDW 18.8 H (11.0-16.0) % Plt Count 344 (160-400) X10*3/uL MPV 9.8 (9.4-12.4) fL Immature Gran % (Auto) 0.3 (0.0-0.4) % Neut % (Auto) 79.5 H (45-73) % Lymph % (Auto) 10.9 L (20-40) % [place] % (Auto) 8.5 (2-11) % Eos % (Auto) 0.1 (0-4) % Baso % (Auto) 0.7 (0-2) % Lymph # (Auto) 1.0 L (1.2-4.9) X10*3/uL [place] # (Auto) 0.8 (0.1-1.2) X10*3/uL Eos # (Auto) 0.0 (0.0-0.4) X10*3/uL Baso # (Auto) 0.1 (0.0-0.2) X10*3/uL Abs Immat Gran (auto) 0.03 (0.00-0.03) X10*3/uL Absolute Neuts (auto) 7.1 (2.0-8.3) X10*3/uL Absolute Nucleated RBC 0.000 (0.0-0.012) X10*3/uL Nucleated RBC % (auto) 0.0 (0.0-0.2) /100WBC Sodium 136 (135-145) mmol/L Potassium 6.5 H* D (3.3-5.1) mmol/L Chloride 105 (96-108) mmol/L Carbon Dioxide 21 L (22-29) mmol/L Anion Gap 17 (12-20) BUN 58 H D (9-16) mg/dL Creatinine 2.86 H (0.5-1.4) mg/dL Estim Creat Clear Calc 29.8 Estimated GFR 23 POC Glucose 144 H (60-115) mg/dL Random Glucose 152 H (60-115) mg/dL Calcium 9.1 (8.4-10.2) mg/dL Magnesium 2.4 (1.6-2.6) mg/dL Total Bilirubin 0.4 (0.0-1.0) mg/dL Direct Bilirubin < 0.2 (0.0-0.5) mg/dL AST 22 D (5-37) U/L ALT 19 (0-40) U/L Alkaline Phosphatase 110 D (39-117) U/L Troponin I High Sens (<3.5-35.0) ng/L Total Protein 6.4 L (6.5-8.0) g/dL Albumin 3.8 (3.5-5.0) g/dL Urine Color Urine Appearance Urine pH (5.0-8.0) Ur Specific [place] (1.005-1.025) Urine Protein (NEG-TRACE) MG/DL Urine Glucose (UA) (NEG) MG/DL Urine Ketones (NEG) MG/DL Urine Blood (NEG) Urine Nitrite (NEG) Ur Leukocyte Esterase (NEG) COVID-19 (ANDERS) (Negative) COVID-19 Clin Com 04/25/21 04/25/21 04/25/21 Range/Units 15:57 16:56 17:20 WBC (4.8-10.8) X10*3/uL RBC (4.60-5.80) X10*6/uL Hgb (14.0-18.0) g/dl Hct (42-52) % MCV (80-98) fL MCH (27.0-33.0) pg MCHC (31.0-36.0) g/dl RDW (11.0-16.0) % Plt Count (160-400) X10*3/uL MPV (9.4-12.4) fL Immature Gran % (Auto) (0.0-0.4) % Neut % (Auto) (45-73) % Lymph % (Auto) (20-40) % [place] % (Auto) (2-11) % Eos % (Auto) (0-4) % Baso % (Auto) (0-2) % Lymph # (Auto) (1.2-4.9) X10*3/uL [place] # (Auto) (0.1-1.2) X10*3/uL Eos # (Auto) (0.0-0.4) X10*3/uL Baso # (Auto) (0.0-0.2) X10*3/uL Abs Immat Gran (auto) (0.00-0.03) X10*3/uL Absolute Neuts (auto) (2.0-8.3) X10*3/uL Absolute Nucleated RBC (0.0-0.012) X10*3/uL Nucleated RBC % (auto) (0.0-0.2) /100WBC Sodium (135-145) mmol/L Potassium (3.3-5.1) mmol/L Chloride (96-108) mmol/L Carbon Dioxide (22-29) mmol/L Anion Gap (12-20) BUN (9-16) mg/dL Creatinine (0.5-1.4) mg/dL Estim Creat Clear Calc Estimated GFR POC Glucose (60-115) mg/dL Random Glucose (60-115) mg/dL Calcium (8.4-10.2) mg/dL Magnesium (1.6-2.6) mg/dL Total Bilirubin (0.0-1.0) mg/dL Direct Bilirubin (0.0-0.5) mg/dL AST (5-37) U/L ALT (0-40) U/L Alkaline Phosphatase (39-117) U/L Troponin I High Sens < 3.5 (<3.5-35.0) ng/L Total Protein (6.5-8.0) g/dL Albumin (3.5-5.0) g/dL Urine Color YELLOW Urine Appearance CLEAR Urine pH 5.5 (5.0-8.0) Ur Specific [place] 1.020 (1.005-1.025) Urine Protein NEG (NEG-TRACE) MG/DL Urine Glucose (UA) NEG (NEG) MG/DL Urine Ketones NEG (NEG) MG/DL Urine Blood NEG (NEG) Urine Nitrite NEG (NEG) Ur Leukocyte Esterase NEG (NEG) COVID-19 (ANDERS) Negative (Negative) COVID-19 Clin Com See Note 04/25/21 Range/Units 17:46 WBC (4.8-10.8) X10*3/uL RBC (4.60-5.80) X10*6/uL Hgb (14.0-18.0) g/dl Hct (42-52) % MCV (80-98) fL MCH (27.0-33.0) pg MCHC (31.0-36.0) g/dl RDW (11.0-16.0) % Plt Count (160-400) X10*3/uL MPV (9.4-12.4) fL Immature Gran % (Auto) (0.0-0.4) % Neut % (Auto) (45-73) % Lymph % (Auto) (20-40) % [place] % (Auto) (2-11) % Eos % (Auto) (0-4) % Baso % (Auto) (0-2) % Lymph # (Auto) (1.2-4.9) X10*3/uL [place] # (Auto) (0.1-1.2) X10*3/uL Eos # (Auto) (0.0-0.4) X10*3/uL Baso # (Auto) (0.0-0.2) X10*3/uL Abs Immat Gran (auto) (0.00-0.03) X10*3/uL Absolute Neuts (auto) (2.0-8.3) X10*3/uL Absolute Nucleated RBC (0.0-0.012) X10*3/uL Nucleated RBC % (auto) (0.0-0.2) /100WBC Sodium (135-145) mmol/L Potassium (3.3-5.1) mmol/L Chloride (96-108) mmol/L Carbon Dioxide (22-29) mmol/L Anion Gap (12-20) BUN (9-16) mg/dL Creatinine (0.5-1.4) mg/dL Estim Creat Clear Calc Estimated GFR POC Glucose 132 H (60-115) mg/dL Random Glucose (60-115) mg/dL Calcium (8.4-10.2) mg/dL Magnesium (1.6-2.6) mg/dL Total Bilirubin (0.0-1.0) mg/dL Direct Bilirubin (0.0-0.5) mg/dL AST (5-37) U/L ALT (0-40) U/L Alkaline Phosphatase (39-117) U/L Troponin I High Sens (<3.5-35.0) ng/L Total Protein (6.5-8.0) g/dL Albumin (3.5-5.0) g/dL Urine Color Urine Appearance Urine pH (5.0-8.0) Ur Specific [place] (1.005-1.025) Urine Protein (NEG-TRACE) MG/DL Urine Glucose (UA) (NEG) MG/DL Urine Ketones (NEG) MG/DL Urine Blood (NEG) Urine Nitrite (NEG) Ur Leukocyte Esterase (NEG) COVID-19 ([facility]ERS) (Negative) COVID-19 Clin Com <Richard Tam MD - Last Filed: 06/02/21 14:59> Imaging Data Chest x-ray: Attestation: I personally reviewed and interpreted this imaging study as follows: <Yakelin Pina NP - Last Filed: 04/25/21 20:12> Radiologist's impression: EXAMINATION: XR CHEST CLINICAL INFORMATION: Dizziness and fall COMPARISON: Previous chest x-ray September 2020 TECHNIQUE: 2 views of the chest were obtained. FINDINGS: The cardiac and mediastinal contours are stable. The lungs are clear. There is no pleural effusion or pneumothorax. There are old right rib fractures. Bony structures are otherwise unremarkable. XR/XR chest 2V IMPRESSION: Unremarkable examination. <Yakelin Pina NP - Last Filed: 04/25/21 20:12> CT scan - head: Attestation: I personally reviewed and interpreted this imaging study as follows: <Yakelin Pina NP - Last Filed: 04/25/21 20:12> Radiologist's impression: EXAMINATION: CT HEAD WITHOUT CONTRAST CLINICAL INFORMATION: Dizziness. COMPARISON: CT brain 02/24/2017 TECHNIQUE: Contiguous axial imaging was performed from the skull base to vertex without intravenous administration of contrast. This CT examination was performed using dose optimization techniques as appropriate, variously including the following: *Automated exposure control *Adjustment of mA and/or kV according to patient size (this includes techniques or standardized protocols for targeted exams where dose is matched to indication/reason for exam; i.e. extremities or head) *Use of iterative reconstruction technique DLP: 644 mGy-cm FINDINGS: There is no evidence of acute intracranial hemorrhage or territorial infarction. No abnormal mass effect or midline shift is seen. [place] to white matter differentiation is well preserved. No extra-axial fluid collections are identified. The lateral ventricles are symmetrical in size but mildly enlarged. There is no edema. The osseous structures and soft tissues are normal. There is minimal mucoperiosteal thickening bilateral ethmoid and left frontal sinuses. Bilateral hypertrophic inferior turbinate changes are noted. CT/CT head/brain wo con IMPRESSION: No acute intracranial process seen. Bilateral ethmoid and left frontal sinus inflammatory changes. <Yakelin Pina NP - Last Filed: 04/25/21 20:12> ECG Data Attestation: I personally reviewed and interpreted this ECG as follows: <Yakelin Pina NP - Last Filed: 04/25/21 20:12> ECG interpretation date: 04/25/21 <Yakelin Pina NP - Last Filed: 04/25/21 20:12> ECG interpretation time: 14:52 <Yakelin Pina NP - Last Filed: 04/25/21 20:12> Interpretation: Sinus tachycardia with a rate of 104, normal [place], normal QRS, normal QTC <Yakelin Pina NP - Last Filed: 04/25/21 20:12> Discharge Plan Discharge Clinical Impression: Hyperkalemia, SANDIP (acute kidney injury), Orthostatic hypotension <Yakelin Pina NP - Last Filed: 04/25/21 20:12> Patient Disposition: Admitted As Inpatient <Yakelin Pina NP - Last Filed: 04/25/21 20:12> Interventions: Admission Worksheet (ED) Last Done: 04/25/21 19:48 <Yakelin Pina NP - Last Filed: 04/25/21 20:12> Discharge Date/Time: 04/25/21 20:06 <Yakelin Pina NP - Last Filed: 04/25/21 20:12>
[2021-04-25] MEDS: 0.9 % Sodium Chloride 1,000 ML 999 ML IV ×2 (16:00→17:19)
[2021-04-25 16:02] LABS: MANUAL DIFF FLAG NO
[2021-04-25 16:03] LABS: Basophils Absolute Auto 0.1 X10*3/uL (0.0-0.2); Basophils Percent Auto 0.7 % (0-2); Eosinophils Percent Auto 0.1 % (0-4); Hematocrit 28.4 % (42-52); Hemoglobin 8.2 g/dl (14.0-18.0); Imm Gran Abs Auto 0.03 X10*3/uL (0.00-0.03); Imm Gran Pct Auto 0.3 % (0.0-0.4); Lymphocytes Percent Auto 10.9 % (20-40); Mean Corpuscular HGB Conc 28.9 g/dl (31.0-36.0); Mean Corpuscular Hemoglobin 19.9 pg (27.0-33.0); Mean Corpuscular Volume 68.9 fL (80-98); Mean Platelet Volume 9.8 fL (9.4-12.4); Monocytes Absolute Auto 0.8 X10*3/uL (0.1-1.2); Monocytes Percent Auto 8.5 % (2-11); Neutrophils Absolute Auto 7.1 X10*3/uL (2.0-8.3); Neutrophils Percent Auto 79.5 % (45-73); Platelet Count 344 X10*3/uL (160-400); Red Blood Count 4.12 X10*6/uL (4.60-5.80); Red Cell Distribution Width 18.8 % (11.0-16.0); White Blood Count 8.9 X10*3/uL (4.8-10.8)
[2021-04-25 16:28] LABS: Troponin-I High Sensitivity < 3.5 ng/L (<3.5-35.0)
--- NOTE | 2021-04-25 16:42 | PC.NURSE ---
per shelter pt is on puree diet, regular liquids. call [phone]
[2021-04-25 16:45] LABS: Alanine Aminotransferase 19 U/L (0-40); Albumin Level 3.8 g/dL (3.5-5.0); Alkaline Phosphatase 110 U/L (39-117); Anion Gap 17 (12-20); Aspartate Amino Transferase 22 U/L (5-37); Bilirubin Direct < 0.2 mg/dL (0.0-0.5); Bilirubin Total 0.4 mg/dL (0.0-1.0); Blood Urea Nitrogen 58 mg/dL (9-16); Calcium 9.1 mg/dL (8.4-10.2); Carbon Dioxide 21 mmol/L (22-29); Chloride 105 mmol/L (96-108); Creatinine Clr Calc Pharmacy 29.8; Estimated Glomerular Filt Rate 23; Glucose Random 152 mg/dL (60-115); Magnesium 2.4 mg/dL (1.6-2.6); Potassium 6.5 mmol/L (3.3-5.1); Sodium 136 mmol/L (135-145); Total Protein 6.4 g/dL (6.5-8.0)
[2021-04-25 17:07] LABS: Glucose Urine UA NEG (NEG); Leukocyte Esterase Urine NEG (NEG); Nitrite Urine NEG (NEG); PH 5.5 (5.0-8.0); Urine Blood NEG (NEG); Urine Ketones NEG (NEG); Urine Protein NEG (NEG-TRACE)
[2021-04-25 17:09] LABS: Appearance Urine CLEAR; Color Urine YELLOW
[2021-04-25] MEDS: Insulin Regular, Human 100 UNIT/ML 3 ML VIAL IVPUSH ×2 (17:11→22:46)
[2021-04-25] MEDS: Sodium Polystyrene Sulfon/Sorb 15 GM/60 ML ORAL.SUSP 30 GM PO (17:14)
[2021-04-25 17:44] LABS: COVID-19 Test Negative (Negative)
[2021-04-25 17:49] LABS: Glucose, Whole Blood 132 mg/dL (60-115)
--- NOTE | 2021-04-25 18:20 | PM.IMHP ---
History of Present Illness Date of Service: 04/25/21 <Jaky Pineda NP - Last Filed: 04/25/21 18:28> Chief Complaint: Fall <Jaky Pineda NP - Last Filed: 04/25/21 18:28> 55-year-old man transferred from custodial after a mechanical fall. He has history of schizophrenia, depression, alcohol syndrome. Apparently he tripped and fell on the carpet and caught himself with his hands. Apparently when he stood up he felt dizzy. Patient is somewhat of a poor historian. In the ER his potassium was noted to be elevated at 6.5. He did receive insulin, D50 and Kayexalate. His creatinine was also noted to be elevated at 2.86. Head CT and chest x-ray both negative for any acute abnormality. Urinalysis shows no infection. Blood pressure was on the softer side with systolic blood pressure in the 90s. He was given 2 L of IV fluids in the ER along with treatment for hyperkalemia. <Jaky Pineda NP - Last Filed: 04/25/21 18:28> [facility] Medical History: Medical History COPD (chronic obstructive pulmonary disease) Diabetes Dysphagia alcohol syndrome HTN (hypertension) Hyperlipidemia Paranoia <Jaky Pineda NP - Last Filed: 04/25/21 18:28> Social History: Social History Household Members: Other Housing: Other Unable to assess alcohol history related to: Unknown Alcohol intake: never Patient Tobacco Use Status: Current everyday Tobacco user Substance Use Type: Crack/Cocaine service: No Current occupational status: disabled <Jaky Pineda NP - Last Filed: 04/25/21 18:28> Meds Allergies/Adverse reactions: Allergies Allergy/AdvReac Type Severity Reaction Status Date / Time No Known Allergies Allergy Verified 04/25/21 17:24 <Jaky Pineda NP - Last Filed: 04/25/21 18:28> Active Medications: Current Medications Generic Name Dose Route Start Last Admin Trade Name Freq PRN Reason Stop Dose Admin Acetaminophen 650 mg 04/25/21 18:15 Acetaminophen 325 Mg Tablet PO Q6H PRN Pain Albuterol Sulfate 2 puff 04/25/21 18:15 Albuterol Sulfate 90 Mcg 8 Gm Inhaler INHALE QID PRN shortness of breath or wheezin Albuterol/Ipratropium 3 ml 04/25/21 18:15 Albuterol/Iprat 2.5/0.5mg 3 Ml Ampul.Neb INHALE Q6H PRN Wheezing Aspirin 81 mg 04/26/21 09:00 Aspirin Enteric Coated 81 Mg Tablet. PO DAILY [facility] Benztropine Mesylate 1 mg 04/25/21 21:00 Benztropine Mesylate 1 Mg Tablet PO BID [facility] Clozapine 300 mg 04/25/21 21:00 Clozapine 100 Mg Tablet PO BEDTIME [facility] Ferrous Sulfate 324 mg 04/25/21 21:00 Ferrous Sulfate 324 Mg Tablet. PO BID [facility] Sodium Chloride 1,000 mls @ 150 mls/hr 04/25/21 18:30 Ns IVCONT .Q6H40M [facility] Insulin Glargine 40 unit 04/26/21 09:00 Insulin Glargine,Hum.Rec.Anlog 100 Unit/Ml 10 Ml Vial SUBCUT DAILY [facility] Insulin Human Lispro 0 unit 04/25/21 21:00 Insulin Lispro 100 Unit/Ml 3 Ml Vial SUBCUT QIDACHS [facility] Protocol Non-Formulary Medication 1 vial 04/25/21 21:00 Budesonide INHALE BID [facility] Non-Formulary Medication 40 mg 04/25/21 21:00 Pantoprazole PO BEDTIME [facility] Non-Formulary Medication 1 tab 04/25/21 21:00 Perphenazine PO BID [facility] Non-Formulary Medication 40 mg 04/25/21 21:00 Simvastatin PO BEDTIME [facility] Ondansetron HCl 4 mg 04/25/21 18:15 Ondansetron Hcl 4 Mg/2 Ml Vial IVPUSH Q8H PRN Nausea and Vomiting Paliperidone Palmitate 156 mg 04/25/21 18:15 Paliperidone Palmitate 156 Mg/Ml Syringe IM Q28D [facility] Paroxetine HCl 40 mg 04/26/21 09:00 Paroxetine Hcl 40 Mg Tablet PO DAILY [facility] Perphenazine 8 mg 04/25/21 21:00 Perphenazine 8 Mg Tablet PO BEDTIME [facility] Pharmacy Consult 1 each 04/25/21 17:04 Consult Rx Perform Med Rec MISCELLANE ONCE PRN Consult order Sodium Chloride 3 ml 04/26/21 00:00 0.9 % Sodium Chloride Flush 3 Ml Syringe IVFLUSH QSHIFT [facility] <Jaky Pineda NP - Last Filed: 04/25/21 18:28> Home medications: Home Medications Medication Instructions Recorded Confirmed Last Taken Type benztropine 1 tab PO BID 10/07/20 04/25/21 04/25/21 History budesonide 1 vial INHALATION BID 10/07/20 04/25/21 04/25/21 History clozapine 3 tab PO BEDTIME 10/07/20 04/25/21 04/24/21 History metformin 1 tab PO BID@0800,1700 10/07/20 04/25/21 04/25/21 History perphenazine 8 mg PO BEDTIME 10/07/20 04/25/21 04/24/21 History simvastatin 40 mg PO BEDTIME 10/07/20 04/25/21 04/24/21 History Invega Sustenna 156 mg IM Q28D 04/25/21 04/25/21 04/15/21 History Lantus Solostar U-100 Insulin 40 unit SUBCUT DAILY 04/25/21 04/25/21 04/25/21 History acetaminophen [Tylenol] 650 mg PO Q6H PRN 04/25/21 04/25/21 Unknown History albuterol sulfate [ProAir HFA] 2 inh INHALATION QID PRN 04/25/21 04/25/21 Unknown History ferrous sulfate 324 mg PO BID 04/25/21 04/25/21 04/25/21 History ipratropium-albuterol 3 ml INHALATION Q6H PRN 04/25/21 04/25/21 Unknown History magnesium 250 mg PO BID 04/25/21 04/25/21 04/25/21 History paroxetine HCl 40 mg PO DAILY 04/25/21 04/25/21 04/25/21 History perphenazine 1 tab PO BID 04/25/21 04/25/21 04/25/21 History <Jaky Pineda NP - Last Filed: 04/25/21 18:28> Physical Exam Vital Signs and Narrative: Vital Signs: Last Vital Signs Temp 98.9 F 04/25/21 14:51 Pulse 104 H 04/25/21 16:00 Resp 22 H 04/25/21 16:00 BP 94/46 L 04/25/21 16:00 Pulse Ox 98 04/25/21 14:51 Body Mass Index 26.6 <Jaky Pineda NP - Last Filed: 04/25/21 18:28> Results Labs CBC and Chem 7: : 04/28/21 06:10 04/28/21 06:10 <Jaky Pineda NP - Last Filed: 04/25/21 18:28> Labs: Laboratory Results - last 24 hr 04/25/21 04/25/21 04/25/21 14:50 15:57 15:57 MCV 68.9 L MCH 19.9 L MCHC 28.9 L RDW 18.8 H Plt Count 344 MPV 9.8 Immature Gran % (Auto) 0.3 Neut % (Auto) 79.5 H Lymph % (Auto) 10.9 L Geary % (Auto) 8.5 Eos % (Auto) 0.1 Baso % (Auto) 0.7 Lymph # (Auto) 1.0 L Geary # (Auto) 0.8 Eos # (Auto) 0.0 Baso # (Auto) 0.1 Abs Immat Gran (auto) 0.03 Absolute Neuts (auto) 7.1 Absolute Nucleated RBC 0.000 Nucleated RBC % (auto) 0.0 Anion Gap 17 Estim Creat Clear Calc 29.8 Estimated GFR 23 POC Glucose 144 H Random Glucose 152 H Calcium 9.1 Magnesium 2.4 Total Bilirubin 0.4 Direct Bilirubin < 0.2 AST 22 D ALT 19 Alkaline Phosphatase 110 D Troponin I High Sens Total Protein 6.4 L Albumin 3.8 Urine Color Urine Appearance Urine pH Ur Specific [place] Urine Protein Urine Glucose (UA) Urine Ketones Urine Blood Urine Nitrite Ur Leukocyte Esterase COVID-19 ([facility]ERS) COVID-19 Clin Com 04/25/21 04/25/21 04/25/21 15:57 16:56 17:20 MCV MCH MCHC RDW Plt Count MPV Immature Gran % (Auto) Neut % (Auto) Lymph % (Auto) Geary % (Auto) Eos % (Auto) Baso % (Auto) Lymph # (Auto) Geary # (Auto) Eos # (Auto) Baso # (Auto) Abs Immat Gran (auto) Absolute Neuts (auto) Absolute Nucleated RBC Nucleated RBC % (auto) Anion Gap Estim Creat Clear Calc Estimated GFR POC Glucose Random Glucose Calcium Magnesium Total Bilirubin Direct Bilirubin AST ALT Alkaline Phosphatase Troponin I High Sens < 3.5 Total Protein Albumin Urine Color YELLOW Urine Appearance CLEAR Urine pH 5.5 Ur Specific [place] 1.020 Urine Protein NEG Urine Glucose (UA) NEG Urine Ketones NEG Urine Blood NEG Urine Nitrite NEG Ur Leukocyte Esterase NEG COVID-19 (ANDERS) Negative COVID-19 Clin Com See Note 04/25/21 17:46 MCV MCH MCHC RDW Plt Count MPV Immature Gran % (Auto) Neut % (Auto) Lymph % (Auto) Geary % (Auto) Eos % (Auto) Baso % (Auto) Lymph # (Auto) Geary # (Auto) Eos # (Auto) Baso # (Auto) Abs Immat Gran (auto) Absolute Neuts (auto) Absolute Nucleated RBC Nucleated RBC % (auto) Anion Gap Estim Creat Clear Calc Estimated GFR POC Glucose 132 H Random Glucose Calcium Magnesium Total Bilirubin Direct Bilirubin AST ALT Alkaline Phosphatase Troponin I High Sens Total Protein Albumin Urine Color Urine Appearance Urine pH Ur Specific [place] Urine Protein Urine Glucose (UA) Urine Ketones Urine Blood Urine Nitrite Ur Leukocyte Esterase COVID-19 ([facility]ERS) COVID-19 Clin Com <Jaky Pineda NP - Last Filed: 04/25/21 18:28> Imaging Radiologist's Impressions: Impressions Chest X-Ray 04/25/21 15:39 IMPRESSION: Unremarkable examination. Head CT 04/25/21 15:39 IMPRESSION: No acute intracranial process seen. Bilateral ethmoid and left frontal sinus inflammatory changes. <Jaky Pineda NP - Last Filed: 04/25/21 18:28> Assessment and Plan (1) Hyperkalemia: Status: Resolved <Jaky Pineda NP - Last Filed: 04/25/21 18:28> 55-year-old man transferred from a custodial after a mechanical fall and dizziness. SANDIP. Likely from dehydration. -aggressive IV fluid hydration -renal ultrasound -bladder scan to assess for retention -nephrology consultation -follow BMP closely -hold lisinopril and metformin Hyperkalemia. Secondary to SANDIP. Treated with insulin, D50 and Kayexalate. -recheck BMP this evening Diabetes. -sliding scale -Lantus -hold metformin due to SANDIP Iron deficiency anemia. Severe. -will add ferritin Mental health. - continue home medications DVT prophylaxis with heparin Attending: Dr. Shannon Full code <Jkay Pineda NP - Last Filed: 04/25/21 18:28>
--- NOTE | 2021-04-25 18:58 | P.EN_ITS ---
Event Note Date of Service: 04/26/21 Event Note: Patient seen examined case discussed with APC 55-year-old gentleman of diabetes, schizoaffective disorder, stroke active sleep apnea and hyperlipidemia came from jail as per patient he stood up, felt dizzy and fell on a carpet but had no head injuries or loss of consciousness, no history of recent antibiotic use, no active GI bleed, no nausea vomiting diarrhea In ER CT head unremarkable, chest x-ray showed no abnormality Labs showed SANDIP and hyperkalemia Assessment and plan Acute kidney injury with hyperkalemia patient noted to be hypotensive ,tachycardic seems pre renal will treat patient with IV fluids check renal ultrasound, give Kayexalate Follow BMP. Iron deficiency anemia due to significant anemia will obtain GI consultation.
[2021-04-25] MEDS: 0.9 % Sodium Chloride 1,000 ML 150 ML IVCONT (19:15)
[2021-04-25 20:30] LABS: Glucose, Whole Blood 159 mg/dL (60-115)
[2021-04-25] MEDS: Omeprazole 20 MG CAPSULE.DR PO (20:54)
[2021-04-25] MEDS: cloZAPine 100 MG TABLET 300 MG PO (20:55)
[2021-04-25] MEDS: Atorvastatin Calcium 20 MG TABLET PO (20:55)
[2021-04-25] MEDS: Ferrous Sulfate 324 MG TABLET.DR PO (20:55)
[2021-04-25] MEDS: Benztropine Mesylate 1 MG TABLET PO (20:56)
[2021-04-25] MEDS: Perphenazine 8 MG TABLET PO (20:56)
[2021-04-25] MEDS: Perphenazine 8 MG TABLET 16 MG PO (20:57)
[2021-04-25] MEDS: Insulin Lispro 100 UNIT/ML 3 ML VIAL SUBCUT (21:10)
[2021-04-25 21:25] LABS: Anion Gap 12 (12-20); Blood Urea Nitrogen 49 mg/dL (9-16); Carbon Dioxide 25 mmol/L (22-29); Chloride 110 mmol/L (96-108); Creatinine Clr Calc Pharmacy 38.3; Estimated Glomerular Filt Rate 31; Glucose Random 160 mg/dL (60-115); Potassium 6.5 mmol/L (3.3-5.1); Sodium 140 mmol/L (135-145)
[2021-04-25] MEDS: Calcium Gluconate/NaCl,Iso-Osm 1 GM/50 ML PLAST..BAG IV (22:52)
--- NOTE | 2021-04-25 23:08 | PC.NURSE ---
at 2126 k=6.[address] Eastman new orders recved to do; ekg, give insulin 5 units and 50 of dextrose recheck bmp in 2 hours and order for ca gluconate infusion pt was in br for a while had bm then ekg
[2021-04-25 23:41] LABS: Anion Gap 11 (12-20); Blood Urea Nitrogen 43 mg/dL (9-16); Calcium 8.7 mg/dL (8.4-10.2); Carbon Dioxide 24 mmol/L (22-29); Chloride 112 mmol/L (96-108); Creatinine Clr Calc Pharmacy 44.4; Estimated Glomerular Filt Rate 37; Glucose Random 211 mg/dL (60-115); Potassium 6.3 mmol/L (3.3-5.1); Sodium 141 mmol/L (135-145)
[2021-04-26] VITALS (7 sets, daily range): BP systolic 110–134; BP diastolic 62–83; PULSE 95–112; RESP 16–20; TEMP 36.4–37.2; O2SAT 94–96
[2021-04-26] MEDS: 0.9 % Sodium Chloride 1,000 ML 150 ML IVCONT (02:51)
[2021-04-26 03:02] LABS: Anion Gap 10 (12-20); Blood Urea Nitrogen 39 mg/dL (9-16); Carbon Dioxide 25 mmol/L (22-29); Chloride 112 mmol/L (96-108); Creatinine Clr Calc Pharmacy 51.1; Estimated Glomerular Filt Rate 43; Glucose Random 100 mg/dL (60-115); Sodium 141 mmol/L (135-145)
[2021-04-26 04:10] LABS: Anion Gap 11 (12-20); Blood Urea Nitrogen 37 mg/dL (9-16); Calcium 8.6 mg/dL (8.4-10.2); Carbon Dioxide 23 mmol/L (22-29); Chloride 113 mmol/L (96-108); Creatinine Clr Calc Pharmacy 55.4; Estimated Glomerular Filt Rate 47; Glucose Random 172 mg/dL (60-115); Potassium 5.8 mmol/L (3.3-5.1); Sodium 141 mmol/L (135-145)
--- NOTE | 2021-04-26 05:22 | PC.NURSE ---
potassium tranding down last result at 330 was 5.8 and previous 3 am was 6.0 and at 12 mn was 6.3 all results reported to dr Eastman pt asymptomatic no c/o discomfort and vss
[2021-04-26 06:50] LABS: MANUAL DIFF FLAG NO
[2021-04-26 06:55] LABS: Basophils Percent Auto 0.6 % (0-2); Eosinophils Percent Auto 0.2 % (0-4); Hematocrit 25.6 % (42-52); Hemoglobin 7.4 g/dl (14.0-18.0); Imm Gran Abs Auto 0.02 X10*3/uL (0.00-0.03); Imm Gran Pct Auto 0.4 % (0.0-0.4); Lymphocytes Absolute Auto 1.1 X10*3/uL (1.2-4.9); Lymphocytes Percent Auto 22.5 % (20-40); Mean Corpuscular HGB Conc 28.9 g/dl (31.0-36.0); Mean Corpuscular Hemoglobin 19.8 pg (27.0-33.0); Mean Corpuscular Volume 68.6 fL (80-98); Monocytes Absolute Auto 0.7 X10*3/uL (0.1-1.2); Monocytes Percent Auto 15.1 % (2-11); Neutrophils Percent Auto 61.2 % (45-73); Platelet Count 327 X10*3/uL (160-400); Red Blood Count 3.73 X10*6/uL (4.60-5.80); Red Cell Distribution Width 18.6 % (11.0-16.0); White Blood Count 4.8 X10*3/uL (4.8-10.8)
[2021-04-26 07:31] LABS: Anion Gap 9 (12-20); Blood Urea Nitrogen 34 mg/dL (9-16); Calcium 8.6 mg/dL (8.4-10.2); Carbon Dioxide 24 mmol/L (22-29); Chloride 113 mmol/L (96-108); Creatinine Clr Calc Pharmacy 66.2; Estimated Glomerular Filt Rate 58; Glucose Random 92 mg/dL (60-115); Potassium 5.7 mmol/L (3.3-5.1); Sodium 140 mmol/L (135-145)
[2021-04-26 08:03] LABS: Glucose, Whole Blood 85 mg/dL (60-115)
[2021-04-26] MEDS: Ferrous Sulfate 324 MG TABLET.DR PO ×2 (08:11→20:42)
[2021-04-26] MEDS: Perphenazine 8 MG TABLET 16 MG PO ×2 (08:11→20:43)
[2021-04-26] MEDS: Aspirin Enteric Coated 81 MG TABLET.DR PO (08:11)
[2021-04-26] MEDS: PARoxetine HCL 40 MG TABLET PO (08:12)
[2021-04-26] MEDS: Insulin Glargine,Hum.rec.anlog 100 UNIT/ML 10 ML VIAL 40 UNIT SUBCUT (08:12)
[2021-04-26] MEDS: Benztropine Mesylate 1 MG TABLET PO ×2 (08:12→20:42)
[2021-04-26] MEDS: 0.9 % Sodium Chloride 1,000 ML 100 ML IVCONT ×2 (08:20→13:33)
[2021-04-26] MEDS: Sodium Polystyrene Sulfon/Sorb 15 GM/60 ML ORAL.SUSP 30 GM PO (08:23)
--- NOTE | 2021-04-26 09:48 | P.CDIC_ITS ---
CDI Concurrent Query Service Date: 04/26/21 Documentation Clarification: Please clarify if you are treating a proba ble/suspected/likely or confirmed: Specifics: Hypotension Orthostatic Hypotension POA Please specify if known Provider Response: Other Other Diagnosis: Hypotension PLEASE DO NOT DELETE/MODIFY EXISTING CONTENT Additional information is needed in order to code to the highest accuracy and appropriate Severity of Illness (SOI). Please clarify the information noted below in your progress notes and discharge summary. Risk Factors/Clinical Indicators/Treatments Ed: Clinical Impression - Orthostatic hypotension. Falls, dizziness, dehydrated. IV fluids in ED. CDS: Lara Gibson CCS, CDIS Contact Number: [phone] Please Review the information above and exercise your independent professional judgment in responding to the query. If you concur, pleas document in the PROGRESS NOTES and DISCHARGE SUMMARY. If you do not agree with the query, please document in the query above. THIS QUERY IS PART OF THE PERMANENT MEDICAL RECORD
[2021-04-26 11:24] LABS: Glucose, Whole Blood 73 mg/dL (60-115)
--- NOTE | 2021-04-26 14:04 | P.CNGI_ITS ---
History of Present Illness Data of Consult Service Date: 04/26/21 Requesting physician: Rosaura Shannon Primary Care Provider: Nighat Muñoz MD HPI Reason for consult: anemia 55-year-old man w/ history of schizophrenia, depression, alcohol syndrome who I am seeing for assessment for iron def anemia History is limited from patient due to stuttering and reduced speech, but apparently per Dr Shannon he gives his own consent He was transferred from nursing home for mechanical fall after tripping on carpet. He was c/o dizziness and noted to have kidney injury with raised K. Head CT and chest x-ray both negative He was noted to have chronic anemia with iron sat of 3%, HGB 7-8 g/dl with microcytosis, he denies rectal bleeding, melena, or abdominal pain. HE deneis epistaxis or hematuria, appetite is good per his report and he has no heartburn or dysphagia. No history of colonoscopy or EGD. Review of Systems Review of Systems: Yes all other systems are reviewed and are negative Constitutional: Constitutional: Reports no additional constitutional complaints, Denies body ache(s), Denies chills, Denies fever(s), Denies headache(s) and Denies weakness Eyes: Eyes: Reports no additional eye complaints and Denies change in vision ENT: Reports system reviewed and no additional complaints, except as documented, Reports dizziness, Denies headache(s), Denies nasal congestion, Denies nasal discharge and Denies neck pain Cardiovascular: Cardiovascular: Reports no additional cardiovascular complaints, Denies chest pain, Denies leg edema and Denies dyspnea Respiratory: Respiratory: Reports no additional respiratory complaints, Denies cough and Denies dyspnea Gastrointestinal: Gastrointestinal: Reports no additional gastrointestinal complaints, Denies abdominal pain, Denies diarrhea, Denies nausea and Denies vomiting Genitourinary: Genitourinary: Denies urinary incontinence Musculoskeletal: Musculoskeletal: Reports no additional musculoskeletal complaints, Denies back pain, Denies arthralgias, Denies joint swelling, Denies neck pain, Denies numbness and Denies tingling Integumentary/Breasts: Skin/Breast: Reports system reviewed and no additional complaints, except as docu and Denies rash Neurologic: Reports system reviewed and no additional complaints, except as documented, Denies Abnormal speech present, Reports dizziness, Denies headache(s), Denies numbness, Denies tingling and Denies weakness [facility] Past Medical History Medical History COPD (chronic obstructive pulmonary disease) Diabetes Dysphagia alcohol syndrome HTN (hypertension) Hyperlipidemia Paranoia Social History Social History Household Members: Other Housing: Other Unable to assess alcohol history related to: Unknown Alcohol intake: never Patient Tobacco Use Status: Current everyday Tobacco user Smoked in Last 30 Days: No Patient Interested in Nicotine Replacement: Yes Patient Given Instructions on How to Stop Smoking: No (refused) Use of substances other than those prescribed or required for medical reasons: No Substance Use Type: Crack/Cocaine Currently Displaying Signs/Symptoms of Drug Intoxication Withdrawal: No Any prior treatment program specific to substance use: No Have you been hit, kicked, punched, or otherwise hurt by someone within the past year? If so, by whom?: No Do you feel safe in your current relationship?: No Current Relationship Is there a partner from a previous relationship who is making you feel unsafe now?: No Are you made to feel afraid or neglected: No Advance Directives: No Advance Directives Information Provided: No Do you have thoughts of harming others: None Do you have a plan to hurt others: No Plan Recently lost weight without trying: No Eating poorly because of decreased appetite: No Nutrition Risks: No Nutritional Risk Poor oral hygiene: No Meds Allergies Allergy/AdvReac Type Severity Reaction Status Date / Time No Known Allergies Allergy Verified 04/25/21 17:24 Active Medications: Current Medications Generic Name Dose Route Start Last Admin Trade Name Freq PRN Reason Stop Dose Admin Acetaminophen 650 mg 04/25/21 18:15 Acetaminophen 325 Mg Tablet PO Q6H PRN Pain Albuterol Sulfate 2 puff 04/25/21 18:15 Albuterol Sulfate 90 Mcg 8 Gm Inhaler INHALE QID PRN shortness of breath or wheezin Albuterol/Ipratropium 3 ml 04/25/21 18:15 Albuterol/Iprat 2.5/0.5mg 3 Ml Ampul.Neb INHALE Q6H PRN Wheezing Aspirin 81 mg 04/26/21 09:00 04/26/21 08:11 Aspirin Enteric Coated 81 Mg Tablet.Dr PO 81 mg DAILY ELISSA Administration Atorvastatin Calcium 20 mg 04/25/21 21:00 04/25/21 20:55 Atorvastatin Calcium 20 Mg Tablet PO 20 mg BEDTIME ELISSA Administration Benztropine Mesylate 1 mg 04/25/21 21:00 04/26/21 08:12 Benztropine Mesylate 1 Mg Tablet PO 1 mg BID ELISSA Administration Clozapine 300 mg 04/25/21 21:00 04/25/21 20:55 Clozapine 100 Mg Tablet PO 300 mg BEDTIME ELISSA Administration Ferrous Sulfate 324 mg 04/25/21 21:00 04/26/21 08:11 Ferrous Sulfate 324 Mg Tablet. PO 324 mg BID ELISSA Administration Sodium Chloride 1,000 mls @ 100 mls/hr 04/25/21 18:30 04/26/21 13:33 Ns IVCONT 100 mls/hr .Q10H ELISSA Administration Insulin Glargine 40 unit 04/26/21 09:00 04/26/21 08:12 Insulin Glargine,Hum.Rec.Anlog 100 Unit/Ml 10 Ml Vial SUBCUT 40 unit DAILY ELISSA Administration Insulin Human Lispro 0 unit 04/25/21 21:00 04/26/21 11:33 Insulin Lispro 100 Unit/Ml 3 Ml Vial SUBCUT Not Given QIDACHS [facility] Protocol Non-Formulary Medication 1 vial 04/25/21 21:00 Budesonide INHALE BID ELISSA Omeprazole 20 mg 04/26/21 09:30 04/26/21 08:17 Omeprazole 20 Mg/10 Ml Susp.Recon PO 20 mg DAILY@0630 ELISSA Administration Ondansetron HCl 4 mg 04/25/21 18:15 Ondansetron Hcl 4 Mg/2 Ml Vial IVPUSH Q8H PRN Nausea and Vomiting Paliperidone Palmitate 156 mg 05/13/21 09:00 Paliperidone Palmitate 156 Mg/Ml Syringe IM Q28D ELISAS Paroxetine HCl 40 mg 04/26/21 09:00 04/26/21 08:12 Paroxetine Hcl 40 Mg Tablet PO 40 mg DAILY ELISSA Administration Perphenazine 8 mg 04/25/21 21:00 04/25/21 20:56 Perphenazine 8 Mg Tablet PO 8 mg BEDTIME ELISSA Administration Perphenazine 16 mg 04/25/21 21:00 04/26/21 08:11 Perphenazine 8 Mg Tablet PO 16 mg BID ELISSA Administration Pharmacy Consult 1 each 04/25/21 17:04 Consult Rx Perform Med Rec MISCELLANE ONCE PRN Consult order Sodium Chloride 3 ml 04/26/21 00:00 04/26/21 13:34 0.9 % Sodium Chloride Flush 3 Ml Syringe IVFLUSH Not Given QSHIFT [facility] Home Medications Medication Instructions Recorded Confirmed Last Taken Type aspirin 1 tab PO DAILY 10/07/20 04/25/21 04/25/21 History benztropine 1 tab PO BID 10/07/20 04/25/21 04/25/21 History budesonide 1 vial INHALATION BID 10/07/20 04/25/21 04/25/21 History clozapine 3 tab PO BEDTIME 10/07/20 04/25/21 04/24/21 History metformin 1 tab PO BID@0800,1700 10/07/20 04/25/21 04/25/21 History perphenazine 8 mg PO BEDTIME 10/07/20 04/25/21 04/24/21 History simvastatin 40 mg PO BEDTIME 10/07/20 04/25/21 04/24/21 History acetaminophen [Tylenol] 650 mg PO Q6H PRN 04/25/21 04/25/21 Unknown History albuterol sulfate [ProAir HFA] 2 inh INHALATION QID PRN 04/25/21 04/25/21 Unknown History ferrous sulfate 324 mg PO BID 04/25/21 04/25/21 04/25/21 History insulin glargine [Lantus Solostar 40 unit SUBCUT DAILY 04/25/21 04/25/21 04/25/21 History U-100 Insulin] ipratropium-albuterol 3 ml INHALATION Q6H PRN 04/25/21 04/25/21 Unknown History lisinopril 10 mg PO DAILY 04/25/21 04/25/21 04/25/21 History magnesium 250 mg PO BID 04/25/21 04/25/21 04/25/21 History paliperidone palmitate [Invega 156 mg IM Q28D 04/25/21 04/25/21 04/15/21 History Sustenna] pantoprazole 40 mg PO BEDTIME 04/25/21 04/25/21 04/24/21 History paroxetine HCl 40 mg PO DAILY 04/25/21 04/25/21 04/25/21 History perphenazine 1 tab PO BID 04/25/21 04/25/21 04/25/21 History Physical Exam Vital Signs: Vital Signs: Last Vital Signs Temp 98.4 F 04/26/21 11:31 Pulse 97 04/26/21 11:31 Resp 18 04/26/21 11:31 BP 120/62 04/26/21 11:31 Pulse Ox 96 04/26/21 11:31 Body Mass Index 26.6 Const: Other: dysmorphic appearance General: cooperative Orientation/consciousness: patient oriented x3 Limitations: no limitations HENMT: Head: Yes normal to inspection Ears: hearing grossly normal bilaterally and TM's normal bilaterally General nose exam: Normal external nose present Face and sinus: Yes normal facial exam Mouth: Normal oral and palatal mucosa present Throat: Yes posterior oropharynx normal, Yes tonsils normal and Yes uvula midline Eyes: General: appearance normal, both eyes and all related structures Pupils: Equal, round and reactive pupils present Neck: Neck: Yes normal visual inspection, Yes full ROM and Yes no lymphadenopathy Chest: Chest palpation & inspection: normal inspection of the chest Resp: Effort & Inspection: normal respiratory effort Auscultation: clear to auscultation bilaterally Cardio: Rate: regular rate Rhythm: regular rhythm Peripheral pulses: Peripheral pulses 2+ throughout GI: Inspection: Yes normal to inspection Palpation (GI): Soft to palpation and nontender Auscultation: normal bowel sounds Back/Spine/Pelvis: Thoracic/Lumbar Spine: thoracic and lumbar spine normal to inspection Skin: General skin exam: no rashes or lesions noted Neuro: General: patient oriented x3, Normal light touch and pain sensation, no focal motor deficits and normal sensation to monofilament Cranial nerves: Yes CN's II-XII intact bilaterally, Yes Equal, round and reactive pupils present, Yes Bilaterally intact EOM present, Yes Nystagmus not present, Yes Normal facial strength present and Yes Midline tongue present Cognition (Neuro): normal cognition Speech: No Abnormal speech present Gait exam (Neuro): Normal gait present Motor exam (neuro): 5/5 motor strength present throughout Sensory Exam: Normal double simultaneous stimulation for sensation Extrem: General: Yes normal to inspection, Yes no pedal edema and Yes no calf tenderness Psych: Appearance: grossly normal Results Labs CBC & Chem 7: 04/26/21 06:31 04/26/21 06:31 Labs: Short CBC 04/25/21 04/26/21 Range/Units 15:57 06:31 WBC 8.9 4.8 (4.8-10.8) X10*3/uL Hgb 8.2 L 7.4 L (14.0-18.0) g/dl Hct 28.4 L 25.6 L (42-52) % Plt Count 344 327 (160-400) X10*3/uL BMP 04/25/21 04/25/21 04/25/21 15:57 20:20 23:07 Sodium 136 140 141 Potassium 6.5 H* D 6.5 H* 6.3 H* Chloride 105 110 H 112 H Carbon Dioxide 21 L 25 24 BUN 58 H D 49 H 43 H Creatinine 2.86 H 2.23 H 1.92 H Calcium 9.1 9.0 8.7 04/26/21 04/26/21 04/26/21 01:56 03:31 06:31 Sodium 141 141 140 Potassium 6.0 H* 5.8 H 5.7 H Chloride 112 H 113 H 113 H Carbon Dioxide 25 23 24 BUN 39 H 37 H 34 H Creatinine 1.67 H 1.54 H 1.29 Calcium 9.0 8.6 8.6 Liver Function 04/25/21 Range/Units 15:57 Total Bilirubin 0.4 (0.0-1.0) mg/dL Direct Bilirubin < 0.2 (0.0-0.5) mg/dL AST 22 D (5-37) U/L ALT 19 (0-40) U/L Alkaline Phosphatase 110 D (39-117) U/L Albumin 3.8 (3.5-5.0) g/dL Urine 04/25/21 Range/Units 16:56 Urine Color YELLOW Urine Appearance CLEAR Urine pH 5.5 (5.0-8.0) Ur Specific [place] 1.020 (1.005-1.025) Urine Protein NEG (NEG-TRACE) MG/DL Urine Glucose (UA) NEG (NEG) MG/DL Assessment and Plan (1) Iron deficiency anemia: Qualifiers: Iron deficiency anemia type: chronic blood loss Qualified Code(s): D50.0 - Iron deficiency anemia secondary to blood loss (chronic) Status: Acute 1/ Acute on chronic iron def anemia, with recent admission for hypotension wt kidney injury, maybe a role played by blood loss or malabsorption PLAN: 1/ EGD and colonoscopy for further evaluation, clears tomorrow with prep, will do bx for celiac as well Procedures Date of Service Date of Service: 04/26/21
--- NOTE | 2021-04-26 15:43 | MHC.CM.PN ---
IMM 04/26, PT ADMITTED W/SANDIP, HYPERKALEMIA AND ORTHOSTATIC HYPOTENSION, CM MET W/PT WHO RESIDES IN A [facility]F, PT IS A &O X3, PT'S SPEECH IS DIFFICULT TO UNDERSTAND, PER PT HE DOES RECEIVE ASSISTANCE W/ADL'S, PT DENIES HAVING ANY DME AND REPORTS HE AMBULATES INDEPENDENTLY, PER PT'S ALF STAFF CRISTINO [phone], PT'S PCP IS DONTA REYES AND PT DOES NOT HAVE A GUARDIAN, PER CRISTINO HE OR STAFF PIETER WILL PROVIDE TRANSPORTATION. 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
[2021-04-26 16:38] LABS: Glucose, Whole Blood 124 mg/dL (60-115)
--- NOTE | 2021-04-26 17:50 | HO.PM.IMPN ---
Subjective Subjective Date of Service: 04/27/21 Interval History: Patient offers no acute complaint, has speech impairment due to cleft lip, he denies pain, no acute issues overnight, denies nausea, vomiting, no abdominal pain, tolerating diet. Asks for food. 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 Neck supple no JVD. CVS regular rate rhythm, Respiratory lungs clear to auscultation, no respiratory distress, no wheeze, no rhonchi. Gastrointestinal abdomen soft, nontender, bowel sounds audible, no guarding , no rigidity. Extremities no edema. Neuro nonfocal Skin no rash Objective Data Current Medications Generic Name Dose Route Start Last Admin Trade Name Freq PRN Reason Stop Dose Admin Acetaminophen 650 mg 04/25/21 18:15 Acetaminophen 325 Mg Tablet PO Q6H PRN Pain Albuterol Sulfate 2 puff 04/25/21 18:15 Albuterol Sulfate 90 Mcg 8 Gm Inhaler INHALE QID PRN shortness of breath or wheezin Albuterol/Ipratropium 3 ml 04/25/21 18:15 Albuterol/Iprat 2.5/0.5mg 3 Ml Ampul.Neb INHALE Q6H PRN Wheezing Aspirin 81 mg 04/26/21 09:00 04/26/21 08:11 Aspirin Enteric Coated 81 Mg Tablet. PO 81 mg DAILY ELISSA Administration Atorvastatin Calcium 20 mg 04/25/21 21:00 04/25/21 20:55 Atorvastatin Calcium 20 Mg Tablet PO 20 mg BEDTIME ELISSA Administration Benztropine Mesylate 1 mg 04/25/21 21:00 04/26/21 08:12 Benztropine Mesylate 1 Mg Tablet PO 1 mg BID ELISSA Administration Clozapine 300 mg 04/25/21 21:00 04/25/21 20:55 Clozapine 100 Mg Tablet PO 300 mg BEDTIME ELISSA Administration Ferrous Sulfate 324 mg 04/25/21 21:00 04/26/21 08:11 Ferrous Sulfate 324 Mg Tablet. PO 324 mg BID [facility] Administration Sodium Chloride 1,000 mls @ 100 mls/hr 04/25/21 18:30 04/26/21 13:33 Ns IVCONT 100 mls/hr .Q10H ELISSA Administration Insulin Glargine 40 unit 04/26/21 09:00 04/26/21 08:12 Insulin Glargine,Hum.Rec.Anlog 100 Unit/Ml 10 Ml Vial SUBCUT 40 unit DAILY ELISSA Administration Insulin Human Lispro 0 unit 04/25/21 21:00 04/26/21 16:40 Insulin Lispro 100 Unit/Ml 3 Ml Vial SUBCUT Not Given QIDACHS [facility] Protocol Non-Formulary Medication 1 vial 04/25/21 21:00 Budesonide INHALE BID [facility] Omeprazole 20 mg 04/26/21 09:30 04/26/21 08:17 Omeprazole 20 Mg/10 Ml Susp.Recon PO 20 mg DAILY@0630 [facility] Administration Ondansetron HCl 4 mg 04/25/21 18:15 Ondansetron Hcl 4 Mg/2 Ml Vial IVPUSH Q8H PRN Nausea and Vomiting Paliperidone Palmitate 156 mg 05/13/21 09:00 Paliperidone Palmitate 156 Mg/Ml Syringe IM Q28D [facility] Paroxetine HCl 40 mg 04/26/21 09:00 04/26/21 08:12 Paroxetine Hcl 40 Mg Tablet PO 40 mg DAILY ELISSA Administration Perphenazine 8 mg 04/25/21 21:00 04/25/21 20:56 Perphenazine 8 Mg Tablet PO 8 mg BEDTIME [facility] Administration Perphenazine 16 mg 04/25/21 21:00 04/26/21 08:11 Perphenazine 8 Mg Tablet PO 16 mg BID ELISSA Administration Pharmacy Consult 1 each 04/25/21 17:04 Consult Rx Perform Med Rec MISCELLANE ONCE PRN Consult order Sodium Chloride 3 ml 04/26/21 00:00 04/26/21 13:34 0.9 % Sodium Chloride Flush 3 Ml Syringe IVFLUSH Not Given QSHIFT [facility] Labs CBC & Chem 7: 04/26/21 06:31 04/27/21 05:50 Assessment and Plan (1) SANDIP (acute kidney injury): Status: Acute (2) Iron deficiency anemia: Status: Acute (3) Hyperkalemia: Status: Acute (4) Hypotension: Status: Acute Assessment and Plan: 55-year-old man transferred from a alf after a mechanical fall and dizziness. SANDIP. Likely prerenal creatinine normalized BUN remains elevated, renal ultrasound showed no obstruction, will DC IV fluid, continue to hold lisinopril and metformin Follow BMP and await nephro input. Hyperkalemia. Secondary to SANDIP, David inhibitors no recent use of antibiotic Treated with insulin, D50 and Kayexalate. No EKG changes repeat Kayexalate follow BMP Diabetes. Stable blood sugars, continue insulin sliding scale, Lantus 30 units, continue to hold metformin due to SANDIP Near-syncope likely due to profound Iron deficiency anemia and dehydration and hypotension, Normal orthostatic studies Patient on iron supplements continued to have anemia, low iron, low ferritin, consulted Gastroenterology case discussed with Dr. 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 No behavioral issues noted continue home medications clozaril, Paxil,and Trilafon DVT prophylaxis with heparin Full code
--- NOTE | 2021-04-26 18:37 | P.CONNP_ITS ---
History of Present Illness Reason for Consult Consult date: 04/26/21 Reason for consult: SANDIP and HyperK Requesting physician: Rosaura Shannon Chief Complaint Chief complaint: SANDIP History of Present Illness Narrative: 55-year-old man [facility] epsidoe and gen weakness and labs revelaing SANDIP and HyperK on ALEXYS-I. Med Tx for HyperK and d/c ALEXYS-I with last K down to 5.7. Scr peak at 2.6 and now 1.3 after IVF and d/c ALEXYS-I Noted dehydrated on adm SBp 90s and better after 2 L NS. Signif anemia noted PT is mentally challenged and info obtained form EHR. Review of Systems Review of Systems Yes all other systems are reviewed and are negative Constitutional: Reports no additional constitutional complaints, Denies body ache(s), Denies chills, Denies fever(s), Denies headache(s) and Denies weakness Eyes: Reports no additional eye complaints and Denies change in vision Reports system reviewed and no additional complaints, except as documented, Reports dizziness, Denies headache(s), Denies nasal congestion, Denies nasal discharge and Denies neck pain Cardiovascular: Reports no additional cardiovascular complaints, Denies chest pain, Denies leg edema and Denies dyspnea Respiratory: Reports no additional respiratory complaints, Denies cough and Denies dyspnea Gastrointestinal: Reports no additional gastrointestinal complaints, Denies abdominal pain, Denies diarrhea, Denies nausea and Denies vomiting Genitourinary: Denies urinary incontinence Musculoskeletal: Reports no additional musculoskeletal complaints, Denies back pain, Denies arthralgias, Denies joint swelling, Denies neck pain, Denies numbness and Denies tingling Skin/Breast: Reports system reviewed and no additional complaints, except as docu and Denies rash Reports system reviewed and no additional complaints, except as documented, Denies Abnormal speech present, Reports dizziness, Denies headache(s), Denies numbness, Denies tingling and Denies weakness [facility] Past Medical History Medical History COPD (chronic obstructive pulmonary disease) Diabetes Dysphagia alcohol syndrome HTN (hypertension) Hyperlipidemia Paranoia Social History Social History Household Members: Other Housing: Other Unable to assess alcohol history related to: Unknown Alcohol intake: never Patient Tobacco Use Status: Current everyday Tobacco user Smoked in Last 30 Days: No Patient Interested in Nicotine Replacement: Yes Patient Given Instructions on How to Stop Smoking: No (refused) Use of substances other than those prescribed or required for medical reasons: No Substance Use Type: Crack/Cocaine Currently Displaying Signs/Symptoms of Drug Intoxication Withdrawal: No Any prior treatment program specific to substance use: No Have you been hit, kicked, punched, or otherwise hurt by someone within the past year? If so, by whom?: No Do you feel safe in your current relationship?: No Current Relationship Is there a partner from a previous relationship who is making you feel unsafe now?: No Are you made to feel afraid or neglected: No Advance Directives: No Advance Directives Information Provided: No Do you have thoughts of harming others: None Do you have a plan to hurt others: No Plan Recently lost weight without trying: No Eating poorly because of decreased appetite: No Nutrition Risks: No Nutritional Risk Poor oral hygiene: No service: No Current occupational status: disabled Meds Allergies Allergy/AdvReac Type Severity Reaction Status Date / Time No Known Allergies Allergy Verified 04/25/21 17:24 Active Medications: Current Medications Generic Name Dose Route Start Last Admin Trade Name Freq PRN Reason Stop Dose Admin Acetaminophen 650 mg 04/25/21 18:15 Acetaminophen 325 Mg Tablet PO Q6H PRN Pain Albuterol Sulfate 2 puff 04/25/21 18:15 Albuterol Sulfate 90 Mcg 8 Gm Inhaler INHALE QID PRN shortness of breath or wheezin Albuterol/Ipratropium 3 ml 04/25/21 18:15 Albuterol/Iprat 2.5/0.5mg 3 Ml Ampul.Neb INHALE Q6H PRN Wheezing Aspirin 81 mg 04/26/21 09:00 04/26/21 08:11 Aspirin Enteric Coated 81 Mg Tablet. PO 81 mg DAILY ELISSA Administration Atorvastatin Calcium 20 mg 04/25/21 21:00 04/25/21 20:55 Atorvastatin Calcium 20 Mg Tablet PO 20 mg BEDTIME ELISSA Administration Benztropine Mesylate 1 mg 04/25/21 21:00 04/26/21 08:12 Benztropine Mesylate 1 Mg Tablet PO 1 mg BID ELISSA Administration Clozapine 300 mg 04/25/21 21:00 04/25/21 20:55 Clozapine 100 Mg Tablet PO 300 mg BEDTIME [facility] Administration Ferrous Sulfate 324 mg 04/25/21 21:00 04/26/21 08:11 Ferrous Sulfate 324 Mg Tablet. PO 324 mg BID [facility] Administration Insulin Glargine 30 unit 04/27/21 09:00 Insulin Glargine,Hum.Rec.Anlog 100 Unit/Ml 10 Ml Vial SUBCUT DAILY [facility] Insulin Human Lispro 0 unit 04/25/21 21:00 04/26/21 16:40 Insulin Lispro 100 Unit/Ml 3 Ml Vial SUBCUT Not Given QIDACHS [facility] Protocol Non-Formulary Medication 1 vial 04/25/21 21:00 Budesonide INHALE BID [facility] Omeprazole 20 mg 04/26/21 09:30 04/26/21 08:17 Omeprazole 20 Mg/10 Ml Susp.Recon PO 20 mg DAILY@0630 [facility] Administration Ondansetron HCl 4 mg 04/25/21 18:15 Ondansetron Hcl 4 Mg/2 Ml Vial IVPUSH Q8H PRN Nausea and Vomiting Paliperidone Palmitate 156 mg 05/13/21 09:00 Paliperidone Palmitate 156 Mg/Ml Syringe IM Q28D [facility] Paroxetine HCl 40 mg 04/26/21 09:00 04/26/21 08:12 Paroxetine Hcl 40 Mg Tablet PO 40 mg DAILY [facility] Administration Perphenazine 8 mg 04/25/21 21:00 04/25/21 20:56 Perphenazine 8 Mg Tablet PO 8 mg BEDTIME [facility] Administration Perphenazine 16 mg 04/25/21 21:00 04/26/21 08:11 Perphenazine 8 Mg Tablet PO 16 mg BID [facility] Administration Pharmacy Consult 1 each 04/25/21 17:04 Consult Rx Perform Med Rec MISCELLANE ONCE PRN Consult order Sodium Chloride 3 ml 04/26/21 00:00 04/26/21 13:34 0.9 % Sodium Chloride Flush 3 Ml Syringe IVFLUSH Not Given QSHIFT [facility] Home Medications Medication Instructions Recorded Confirmed Last Taken Type aspirin 1 tab PO DAILY 10/07/20 04/25/21 04/25/21 History benztropine 1 tab PO BID 10/07/20 04/25/21 04/25/21 History budesonide 1 vial INHALATION BID 10/07/20 04/25/21 04/25/21 History clozapine 3 tab PO BEDTIME 10/07/20 04/25/21 04/24/21 History metformin 1 tab PO BID@0800,1700 10/07/20 04/25/21 04/25/21 History perphenazine 8 mg PO BEDTIME 10/07/20 04/25/21 04/24/21 History simvastatin 40 mg PO BEDTIME 10/07/20 04/25/21 04/24/21 History acetaminophen [Tylenol] 650 mg PO Q6H PRN 04/25/21 04/25/21 Unknown History albuterol sulfate [ProAir HFA] 2 inh INHALATION QID PRN 04/25/21 04/25/21 Unknown History ferrous sulfate 324 mg PO BID 04/25/21 04/25/21 04/25/21 History insulin glargine [Lantus Solostar 40 unit SUBCUT DAILY 04/25/21 04/25/21 04/25/21 History U-100 Insulin] ipratropium-albuterol 3 ml INHALATION Q6H PRN 04/25/21 04/25/21 Unknown History lisinopril 10 mg PO DAILY 04/25/21 04/25/21 04/25/21 History magnesium 250 mg PO BID 04/25/21 04/25/21 04/25/21 History paliperidone palmitate [Invega 156 mg IM Q28D 04/25/21 04/25/21 04/15/21 History Sustenna] pantoprazole 40 mg PO BEDTIME 04/25/21 04/25/21 04/24/21 History paroxetine HCl 40 mg PO DAILY 04/25/21 04/25/21 04/25/21 History perphenazine 1 tab PO BID 04/25/21 04/25/21 04/25/21 History Physical Exam Vital Signs: Last Vital Signs Temp 97.7 F 04/26/21 15:24 Pulse 95 04/26/21 15:24 Resp 16 04/26/21 15:24 BP 133/74 04/26/21 15:24 Pulse Ox 95 04/26/21 15:24 Body Mass Index 26.6 Const Other: dysmorphic appearance General: cooperative Orientation/consciousness: patient oriented x3 Limitations: no limitations HENMT Head: Yes normal to inspection Ears: hearing grossly normal bilaterally and TM's normal bilaterally General nose exam: Normal external nose present Face and sinus: Yes normal facial exam Mouth: Normal oral and palatal mucosa present Throat: Yes posterior oropharynx normal, Yes tonsils normal and Yes uvula midline Eyes General: appearance normal, both eyes and all related structures Pupils: Equal, round and reactive pupils present Neck Neck: Yes normal visual inspection, Yes full ROM and Yes no lymphadenopathy Chest Chest palpation & inspection: normal inspection of the chest Resp Effort & Inspection: normal respiratory effort Auscultation: clear to auscultation bilaterally Cardio Rate: regular rate Rhythm: regular rhythm Peripheral pulses: Peripheral pulses 2+ throughout GI Inspection: Yes normal to inspection Palpation (GI): Soft to palpation and nontender Auscultation: normal bowel sounds Back/Spine/Pelvis Thoracic/Lumbar Spine: thoracic and lumbar spine normal to inspection Skin General skin exam: no rashes or lesions noted Neuro General: patient oriented x3, Normal light touch and pain sensation, no focal motor deficits and normal sensation to monofilament Cranial nerves: Yes CN's II-XII intact bilaterally, Yes Equal, round and reactive pupils present, Yes Bilaterally intact EOM present, Yes Nystagmus not present, Yes Normal facial strength present and Yes Midline tongue present Cognition (Neuro): normal cognition Speech: No Abnormal speech present Gait exam (Neuro): Normal gait present Motor exam (neuro): 5/5 motor strength present throughout Sensory Exam: Normal double simultaneous stimulation for sensation Extrem General: Yes normal to inspection, Yes no pedal edema and Yes no calf tenderness Psych Appearance: grossly normal Results Lab Results Result Diagrams: 04/26/21 06:31 04/26/21 06:31 Lab results: Chemistry 04/25/21 04/25/21 04/25/21 15:57 20:20 23:07 Sodium 136 140 141 Potassium 6.5 H* D 6.5 H* 6.3 H* Carbon Dioxide 21 L 25 24 BUN 58 H D 49 H 43 H Creatinine 2.86 H 2.23 H 1.92 H Calcium 9.1 9.0 8.7 04/26/21 04/26/21 04/26/21 01:56 03:31 06:31 Sodium 141 141 140 Potassium 6.0 H* 5.8 H 5.7 H Carbon Dioxide 25 23 24 BUN 39 H 37 H 34 H Creatinine 1.67 H 1.54 H 1.29 Calcium 9.0 8.6 8.6 Hematology 04/25/21 04/26/21 15:57 06:31 WBC 8.9 4.8 Hgb 8.2 L 7.4 L Plt Count 344 327 Urinalysis 04/25/21 16:56 Urine Color YELLOW Urine Appearance CLEAR Urine pH 5.5 Ur Specific [place] 1.020 Urine Protein NEG Urine Glucose (UA) NEG Urine Ketones NEG Urine Blood NEG Urine Nitrite NEG Ur Leukocyte Esterase NEG Assessment and Plan (1) SANDIP (acute kidney injury): Status: Acute (2) Iron deficiency anemia: Qualifiers: Iron deficiency anemia type: chronic blood loss Qualified Code(s): D50.0 - Iron deficiency anemia secondary to blood loss (chronic) Status: Acute (3) Hyperkalemia: Status: Acute (4) Hypotension: Status: Acute 55-year-old DM/HTN mentallly challenged man [facility] a [facility] after a mechanical fall and dizziness and SANDIP, HyperK, and dehydration 1. SANDIP: c/w renal hypoperfusion with ALEXYS-I playing a role by interfering with auto-reg of renal perfusion---improved renal func with IVF and off alexys-i 2. HyperK: d/t sandip and ALEXYS-I; coming down but need to watch for rebound hyperK; with decr SCr would anticiapte hyperK resolving 3. Aneia: nutrtional def vs other 4. Dehydration event: d/t poor po access vs high BS and osmotic diureiss REC: repeat K level as may need additional Tx; avoid ALEXYS-I; anemia w/u will follow with team Procedures Date of Service Date of Service: 04/26/21
[2021-04-26 19:41] LABS: Anion Gap 11 (12-20); Carbon Dioxide 26 mmol/L (22-29); Chloride 111 mmol/L (96-108); Iron 65 mcg/dL (45-160); Percent Iron Saturation 14 % (15-50); Potassium 5.5 mmol/L (3.3-5.1); Sodium 142 mmol/L (135-145); Total Iron Binding Capacity 455 mcg/dL (228-428); Unsaturated Iron Binding 390 ug/dL
[2021-04-26 20:13] LABS: Folate 8.4 ng/mL (> or = 4.0); Vitamin B12 247 pg/mL (200-900)
[2021-04-26 20:21] LABS: Glucose, Whole Blood 110 mg/dL (60-115)
[2021-04-26] MEDS: Perphenazine 8 MG TABLET PO (20:42)
[2021-04-26] MEDS: cloZAPine 100 MG TABLET 300 MG PO (20:42)
[2021-04-26] MEDS: Atorvastatin Calcium 20 MG TABLET PO (20:43)
[2021-04-26] MEDS: 0.9 % Sodium Chloride Flush 3 ML SYRINGE IVFLUSH (20:43)
[2021-04-27 00:42] LABS: Creatinine Urine 62.03 mg/dL; Microalbum/Creatinine Ratio Ur 17.7 ug/mg cr; Total Protein Urine Random < 7 mg/dL (<12)
[2021-04-27 04:00] VITALS: BP 144/79; PULSE 94; RESP 20; TEMP 36.5; O2SAT 99
[2021-04-27 06:49] LABS: Anion Gap 12 (12-20); Blood Urea Nitrogen 21 mg/dL (9-16); Calcium 9.1 mg/dL (8.4-10.2); Carbon Dioxide 27 mmol/L (22-29); Chloride 108 mmol/L (96-108); Creatinine Clr Calc Pharmacy 79.8; Estimated Glomerular Filt Rate > 60; Glucose Random 100 mg/dL (60-115); Sodium 142 mmol/L (135-145)
[2021-04-27 07:22] VITALS: BP 132/85; PULSE 88; RESP 19; TEMP 36.9; O2SAT 95
[2021-04-27 07:22] LABS: Ferritin 6 ng/mL (20-250)
[2021-04-27 07:48] LABS: Glucose, Whole Blood 105 mg/dL (60-115)
[2021-04-27] MEDS: Benztropine Mesylate 1 MG TABLET PO ×2 (08:56→20:27)
[2021-04-27] MEDS: Ferrous Sulfate 324 MG TABLET.DR PO ×2 (08:56→20:27)
[2021-04-27] MEDS: PARoxetine HCL 40 MG TABLET PO (08:56)
[2021-04-27] MEDS: Aspirin Enteric Coated 81 MG TABLET.DR PO (08:56)
[2021-04-27] MEDS: Perphenazine 8 MG TABLET 16 MG PO ×2 (08:56→20:26)
[2021-04-27] MEDS: 0.9 % Sodium Chloride Flush 3 ML SYRINGE IVFLUSH ×3 (09:08→20:27)
[2021-04-27 11:16] LABS: Glucose, Whole Blood 146 mg/dL (60-115)
[2021-04-27 11:26] VITALS: BP 136/87; PULSE 93; RESP 18; TEMP 37.3; O2SAT 94
--- NOTE | 2021-04-27 14:55 | P.PNIM_ITS ---
Subjective Subjective Date of Service: 04/27/21 Interval History: Patient offers no acute complaints denies nausea vomiting hematemesis no headache asking for a sandwich, has been placed on clear liquid diet. ROS General no headache, no dizziness no fever chills. CVS no chest pain, no palpitation. Respiratory no cough, no sob. Gastrointestinal no nausea no vomiting, no abdominal pain Physical Exam Vital Signs: Vital Signs: Last Vital Signs Temp 99.2 F 04/27/21 11:26 Pulse 93 04/27/21 11:26 Resp 18 04/27/21 11:26 BP 136/87 04/27/21 11:26 Pulse Ox 94 04/27/21 11:26 Body Mass Index 26.6 General no acute distress. Neck supple no JVD. CVS regular rate rhythm, Respiratory lungs clear to auscultation, no respiratory distress, no wheeze, no rhonchi. Gastrointestinal abdomen soft, nontender, bowel sounds audible, no guarding , no rigidity. Extremities no edema. Neuro nonfocal, cleft lip Skin no rash Objective Data Current Medications Generic Name Dose Route Start Last Admin Trade Name Freq PRN Reason Stop Dose Admin Acetaminophen 650 mg 04/25/21 18:15 Acetaminophen 325 Mg Tablet PO Q6H PRN Pain Albuterol Sulfate 2 puff 04/25/21 18:15 Albuterol Sulfate 90 Mcg 8 Gm Inhaler INHALE QID PRN shortness of breath or wheezin Albuterol/Ipratropium 3 ml 04/25/21 18:15 Albuterol/Iprat 2.5/0.5mg 3 Ml Ampul.Neb INHALE Q6H PRN Wheezing Aspirin 81 mg 04/26/21 09:00 04/27/21 08:56 Aspirin Enteric Coated 81 Mg Tablet. PO 81 mg DAILY ELISSA Administration Atorvastatin Calcium 20 mg 04/25/21 21:00 04/26/21 20:43 Atorvastatin Calcium 20 Mg Tablet PO 20 mg BEDTIME ELISSA Administration Benztropine Mesylate 1 mg 04/25/21 21:00 04/27/21 08:56 Benztropine Mesylate 1 Mg Tablet PO 1 mg BID ELISSA Administration Bisacodyl 20 mg 04/27/21 18:49 Bisacodyl 5 Mg Tablet. PO 04/27/21 18:50 ONCE ONE Clozapine 300 mg 04/25/21 21:00 04/26/21 20:42 Clozapine 100 Mg Tablet PO 300 mg BEDTIME [facility] Administration Ferrous Sulfate 324 mg 04/25/21 21:00 04/27/21 08:56 Ferrous Sulfate 324 Mg Tablet. PO 324 mg BID [facility] Administration Insulin Glargine 30 unit 04/27/21 09:00 04/27/21 09:34 Insulin Glargine,Hum.Rec.Anlog 100 Unit/Ml 10 Ml Vial SUBCUT Not Given DAILY [facility] Insulin Human Lispro 0 unit 04/25/21 21:00 04/27/21 11:30 Insulin Lispro 100 Unit/Ml 3 Ml Vial SUBCUT Not Given QIDACHS [facility] Protocol Non-Formulary Medication 1 vial 04/25/21 21:00 Budesonide INHALE BID [facility] Omeprazole 20 mg 04/26/21 09:30 04/27/21 06:08 Omeprazole 20 Mg/10 Ml Susp.Recon PO Not Given DAILY@0630 [facility] Ondansetron HCl 4 mg 04/25/21 18:15 Ondansetron Hcl 4 Mg/2 Ml Vial IVPUSH Q8H PRN Nausea and Vomiting Paliperidone Palmitate 156 mg 05/13/21 09:00 Paliperidone Palmitate 156 Mg/Ml Syringe IM Q28D [facility] Paroxetine HCl 40 mg 04/26/21 09:00 04/27/21 08:56 Paroxetine Hcl 40 Mg Tablet PO 40 mg DAILY [facility] Administration Perphenazine 8 mg 04/25/21 21:00 04/26/21 20:42 Perphenazine 8 Mg Tablet PO 8 mg BEDTIME [facility] Administration Perphenazine 16 mg 04/25/21 21:00 04/27/21 08:56 Perphenazine 8 Mg Tablet PO 16 mg BID [facility] Administration Pharmacy Consult 1 each 04/25/21 17:04 Consult Rx Perform Med Rec MISCELLANE ONCE PRN Consult order Polyethylene Glycol/Electrolytes 4,000 ml 04/27/21 20:00 Peg 3350/Na Sulf,Bicarb,Cl/Kcl 4,000 Ml Soln.Recon PO 04/27/21 20:01 ONCE ONE Sodium Chloride 3 ml 04/26/21 00:00 04/27/21 09:08 0.9 % Sodium Chloride Flush 3 Ml Syringe IVFLUSH 3 ml QSHIFT [facility] Administration Labs CBC & Chem 7: 04/26/21 06:31 04/27/21 05:50 Assessment and Plan (1) Near syncope: Status: Acute (2) Hypotension: Status: Acute (3) Iron deficiency anemia: Status: Acute (4) SANDIP (acute kidney injury): Status: Acute (5) Hyperkalemia: Status: Acute Assessment and Plan: 55-year-old man transferred from a nursing home after a mechanical fall and dizziness. SANDIP. Likely prerenal creatinine normalized BUN trending down,renal ultrasound showed no obstruction, tolerating by mouth s/p IV fluid, continue to hold lisinopril and metformin Case discussed with Nephrology they agree with above treatment. Hyperkalemia. Secondary to SANDIP, David inhibitors no recent use of antibiotic Treated with insulin, D50 and Kayexalate. No EKG changes , potassium normalized . Diabetes. Stable blood sugars 146, continue insulin sliding scale, Lantus 30 units, continue to hold metformin due to SANDIP Near-syncope likely due to profound Iron deficiency anemia and dehydration and hypotension, Normal orthostatic studies Patient on iron supplements continued to have anemia, low iron, low ferritin, consulted Gastroenterology case discussed with Dr. 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 No behavioral issues noted continue home medications clozaril, Paxil,and Trilafon DVT prophylaxis with heparin
[2021-04-27 15:32] VITALS: BP 129/94; PULSE 100; RESP 20; TEMP 36.9; O2SAT 96
[2021-04-27 16:27] LABS: Glucose, Whole Blood 150 mg/dL (60-115)
[2021-04-27] MEDS: bisacodyL 5 MG TABLET.DR 20 MG PO (18:26)
--- NOTE | 2021-04-27 18:55 | PM.PNNEP ---
Subjective Subjective Date of Service: 04/27/21 Interval history: Seen and examined, event snoted Physical Exam Vital Signs: Vital Signs: Last Vital Signs Temp 98.5 F 04/27/21 15:32 Pulse 100 04/27/21 15:32 Resp 20 04/27/21 15:32 BP 129/94 H 04/27/21 15:32 Pulse Ox 96 04/27/21 15:32 Body Mass Index 26.6 Const: Other: dysmorphic appearance General: cooperative Orientation/consciousness: patient oriented x3 Limitations: no limitations HENMT: Head: Yes normal to inspection Ears: hearing grossly normal bilaterally and TM's normal bilaterally General nose exam: Normal external nose present Face and sinus: Yes normal facial exam Mouth: Normal oral and palatal mucosa present Throat: Yes posterior oropharynx normal, Yes tonsils normal and Yes uvula midline Eyes: General: appearance normal, both eyes and all related structures Pupils: Equal, round and reactive pupils present Neck: Neck: Yes normal visual inspection, Yes full ROM and Yes no lymphadenopathy Chest: Chest palpation & inspection: normal inspection of the chest Resp: Effort & Inspection: normal respiratory effort Auscultation: clear to auscultation bilaterally Cardio: Rate: regular rate Rhythm: regular rhythm Peripheral pulses: Peripheral pulses 2+ throughout GI: Inspection: Yes normal to inspection Palpation (GI): Soft to palpation and nontender Auscultation: normal bowel sounds Back/Spine/Pelvis: Thoracic/Lumbar Spine: thoracic and lumbar spine normal to inspection Skin: General skin exam: no rashes or lesions noted Neuro: General: patient oriented x3, Normal light touch and pain sensation, no focal motor deficits and normal sensation to monofilament Cranial nerves: Yes CN's II-XII intact bilaterally, Yes Equal, round and reactive pupils present, Yes Bilaterally intact EOM present, Yes Nystagmus not present, Yes Normal facial strength present and Yes Midline tongue present Cognition (Neuro): normal cognition Speech: No Abnormal speech present Gait exam (Neuro): Normal gait present Motor exam (neuro): 5/5 motor strength present throughout Sensory Exam: Normal double simultaneous stimulation for sensation Extrem: General: Yes normal to inspection, Yes no pedal edema and Yes no calf tenderness Psych: Appearance: grossly normal Objective Data Labs CBC & Chem 7: 04/26/21 06:31 04/27/21 05:50 Labs: Laboratory Results - last 24 hr 04/26/21 04/26/21 04/26/21 18:58 18:58 20:12 Sodium 142 Potassium 5.5 H Chloride 111 H Carbon Dioxide 26 Anion Gap 11 L BUN Creatinine Estim Creat Clear Calc Estimated GFR POC Glucose 110 Random Glucose Calcium Iron 65 TIBC 455 H % Saturation 14 L Unsat Iron Binding 390 Ferritin Cancelled Vitamin B12 247 Folate 8.4 U Random Total Protein Urine Creatinine Urine Microalbumin Microalb/Creat Ratio 04/26/21 04/27/21 04/27/21 22:22 05:50 07:21 Sodium 142 Potassium 5.0 Chloride 108 Carbon Dioxide 27 Anion Gap 12 BUN 21 H Creatinine 1.07 Estim Creat Clear Calc 79.8 Estimated GFR > 60 POC Glucose 105 Random Glucose 100 Calcium 9.1 Iron TIBC % Saturation Unsat Iron Binding Ferritin 6 L Vitamin B12 Folate U Random Total Protein < 7 Urine Creatinine 62.03 Urine Microalbumin 11.0 Microalb/Creat Ratio 17.7 04/27/21 04/27/21 11:12 16:20 Sodium Potassium Chloride Carbon Dioxide Anion Gap BUN Creatinine Estim Creat Clear Calc Estimated GFR POC Glucose 146 H 150 H Random Glucose Calcium Iron TIBC % Saturation Unsat Iron Binding Ferritin Vitamin B12 Folate U Random Total Protein Urine Creatinine Urine Microalbumin Microalb/Creat Ratio Assessment & Plan Assessment and plan (1) SANDIP (acute kidney injury): Status: Acute (2) Iron deficiency anemia: Status: Acute (3) Hyperkalemia: Status: Acute (4) Hypotension: Status: Acute Assessment and Plan: 55-year-old DM/HTN mentallly challenged man transferred from a long-term after a mechanical fall and dizziness and SANDIP, HyperK, and dehydration 1. SANDIP: c/w renal hypoperfusion with ALEXYS-I playing a role by interfering with auto-reg of renal perfusion---improved renal func with IVF and off alexys-i 2. HyperK:resolved 3. Anemia: nutrtional def vs other 4. Dehydration event: d/t poor po access vs high BS and osmotic diureiss REC: consider alt to ALEXYS-I such as norvasc 5mg; avoid dehydration will sign off call PRN will follow with team Time Spent With Patient Time: Total time spent is greater than 50% in coordination of care (as documented) at patient's floor/unit and/or counseling patient: Procedures Date of Service Date of Service: 04/27/21
[2021-04-27 19:18] VITALS: BP 118/75; PULSE 91; RESP 20; TEMP 36.8; O2SAT 94
[2021-04-27] MEDS: Perphenazine 8 MG TABLET PO (20:26)
[2021-04-27] MEDS: cloZAPine 100 MG TABLET 300 MG PO (20:26)
[2021-04-27] MEDS: Atorvastatin Calcium 20 MG TABLET PO (20:27)
[2021-04-27 20:43] LABS: Glucose, Whole Blood 171 mg/dL (60-115)
[2021-04-27] MEDS: PEG 3350/Na Sulf,Bicarb,Cl/KCL 4,000 ML SOLN.RECON 4000 ML PO (21:24)
[2021-04-28] VITALS (7 sets, daily range): BP systolic 98–141; BP diastolic 59–95; PULSE 80–93; RESP 14–19; TEMP 35.9–36.5; O2SAT 93–100
[2021-04-28 06:32] LABS: MANUAL DIFF FLAG NO
[2021-04-28 06:53] LABS: Basophils Percent Auto 0.5 % (0-2); Eosinophils Percent Auto 0.3 % (0-4); Hematocrit 29.5 % (42-52); Hemoglobin 8.4 g/dl (14.0-18.0); Imm Gran Abs Auto 0.01 X10*3/uL (0.00-0.03); Imm Gran Pct Auto 0.3 % (0.0-0.4); Lymphocytes Percent Auto 27.4 % (20-40); Mean Corpuscular HGB Conc 28.5 g/dl (31.0-36.0); Mean Corpuscular Hemoglobin 19.4 pg (27.0-33.0); Mean Corpuscular Volume 68.3 fL (80-98); Mean Platelet Volume 10.2 fL (9.4-12.4); Monocytes Absolute Auto 0.5 X10*3/uL (0.1-1.2); Monocytes Percent Auto 14.4 % (2-11); Neutrophils Absolute Auto 2.2 X10*3/uL (2.0-8.3); Neutrophils Percent Auto 57.1 % (45-73); Platelet Count 308 X10*3/uL (160-400); Red Blood Count 4.32 X10*6/uL (4.60-5.80); Red Cell Distribution Width 18.9 % (11.0-16.0); White Blood Count 3.8 X10*3/uL (4.8-10.8)
[2021-04-28 07:05] LABS: Anion Gap 11 (12-20); Blood Urea Nitrogen 17 mg/dL (9-16); Calcium 9.1 mg/dL (8.4-10.2); Carbon Dioxide 27 mmol/L (22-29); Chloride 105 mmol/L (96-108); Estimated Glomerular Filt Rate > 60; Glucose Random 139 mg/dL (60-115); Potassium 4.2 mmol/L (3.3-5.1); Sodium 139 mmol/L (135-145)
[2021-04-28 07:49] LABS: Glucose, Whole Blood 145 mg/dL (60-115)
--- NOTE | 2021-04-28 08:59 | MHC.SHP ---
Pre-Procedural Eval Section A The patient is an INPATIENT: Yes The History & Physical has been completed within 30 days and I have reviewed it.: Yes Section B Chief Complaint: SANDIP Allergies: Allergies Allergy/AdvReac Type Severity Reaction Status Date / Time No Known Allergies Allergy Verified 04/25/21 17:24 Plan Diagnosis/Plan: Unchanged I have reviewed the history and physical and performed a pertinent physical examination on my patient. No changes have occurred unless specified.
--- NOTE | 2021-04-28 09:07 | P.BOP_ITS ---
Brief Operative Note Date of Service: 04/28/21 Pre-op diagnosis: anemia Post-op diagnosis: same Procedure: see op note Surgeon: Jimmie Sung MD Anesthesia: MAC Was an Change Management Facilitator used for this Procedure?: No Estimated blood loss (mL): 0 Condition: stable Disposition: PACU
--- NOTE | 2021-04-28 09:07 | P.OP_ITS ---
Operative Note Operative Note Date of Service: 04/28/21 Narrative: Operative Information Procedure Description: EGD, Colonoscopy FLEXIBLE TRANSORAL UPPER GASTROINTESTINAL ENDOSCOPY AND COLONOSCOPY PROCEDURE NOTE UPPER ENDOSCOPY Consent: Indications for the procedure and potential complications of bleeding, perforation, reaction to medications and missed diagnosis were discussed with the patient and informed consent was obtained. Instrument: Olympus GIF H 190 J mid size upper endoscope Monitoring: Vital signs and clinical assessment, continuous EKG monitoring, Pulse oximetry, Carbon Dioxide monitoring and blood pressure monitoring were done throughout the procedure. Procedure: The patient was placed in the left lateral decubitis position and pre-procedure medications were administered and a bite block was placed. The endoscope was inserted into the mouth and advanced under direct vision to the third part of duodenum. A careful inspection was made as the upper endoscope was withdrawn including a retroflexed examination of the proximal stomach; Findings and interventions are described below. Findings: Larynx:normal Esophagus: GE junction at 40 cm, diaphragm hiatus at 40 cm, LA grade D erosive esophagitis with one erosion extending 7 cm. erosions seen at gastric cardia as well Stomach: Mild erythema. Biopsies were obtained. Grade 3 flap valve on retroflexed examination of the cardia. The LES was very lax. Duodenum: Normal bulb and descending duodenum, bx taken to r/o celiac sprue Intervention: Biopsies as noted above COLONOSCOPY Instrument: Olympus variable stiffness pediatric scope 190L Colonoscopy Monitoring: Vital signs and clinical assessment, continuous EKG monitoring, Pulse oximetry, Carbon Dioxide monitoring and blood pressure monitoring were done throughout the procedure. Colon withdrawal time was 6 minutes. Procedure: The patient was placed in the left lateral decubitis position and pre-procedure medications were administered. After a digital rectal examination of the ano-rectum, the video colonoscope was inserted into the rectum and advanced through the colon to the cecum/TI. The colonoscope was slowly withdrawn in a retrograde panoramic fashion and the colon mucosa was carefully examined including a retroflexed view of the rectum. Findings and interventions are described below. Procedure Difficulty: moderate, pressure needed to get to cecum Findings: Terminal Ileum-normal Cecum:normal Ascending Colon: normal Transverse Colon -normal Descending Colon:normal Sigmoid Colon: normal Rectum: Retroflexion with small internal hemorrhoids, grade I Anorectum - normal Colon preparation: [place] Bowel Preparation Scale Right colon; 1 Transverse colon: 2 Left colon; 1 (0 = Unprepared colon segment with mucosa not seen due to solid stool that cannot be cleared. 1 = Portion of mucosa of the colon segment seen, but other areas of the colon segment not well seen due to staining, residual stool and/or opaque liquid. 2 = Minor amount of residual staining, small fragments of stool and/or opaque liquid, but mucosa of colon segment seen well. 3 = Entire mucosa of colon segment seen well with no residual staining, small fragments of stool or opaque liquid) Impression and Post Procedure Diagnosis: Endoscopy Findings: erosive esophagitis gastritis Colonoscopy Findings: internal hemorrhoids Suspect Anemia is from the erosive esophagitis Plan: Await Pathology results Repeat Colonoscopy in 1-2 years or earlier if clinically indicated High fiber diet leaflet avoid straining at stool, epsom salts and sitz bath, anusol supps or cream as needed reflux precautions and increase PPi e.g pantoprazole 40 mg BID Above findings were reviewed with the patient and relevant handouts were provided if indicated.
[2021-04-28 09:13] LABS: Glucose, Whole Blood 142 mg/dL (60-115)
--- NOTE | 2021-04-28 09:14 | P.CONAN_ITS ---
[facility] Active Problems Active Problems: All Active Problems (Updated 04/27/21 @ 14:58 by Rosaura Shannon MD) Near syncope (Acute) Hypotension (Acute) Iron deficiency anemia (Acute) SANDIP (acute kidney injury) (Acute) Orthostatic hypotension (Acute) Hyperkalemia (Acute) Past Medical History Medical History COPD (chronic obstructive pulmonary disease) Diabetes Dysphagia alcohol syndrome HTN (hypertension) Hyperlipidemia Paranoia Social History Social History Household Members: Other Housing: Other Unable to assess alcohol history related to: Unknown Alcohol intake: never Patient Tobacco Use Status: Current everyday Tobacco user Smoked in Last 30 Days: No Patient Interested in Nicotine Replacement: Yes Patient Given Instructions on How to Stop Smoking: No (refused) Use of substances other than those prescribed or required for medical reasons: No Substance Use Type: Crack/Cocaine Currently Displaying Signs/Symptoms of Drug Intoxication Withdrawal: No Any prior treatment program specific to substance use: No Have you been hit, kicked, punched, or otherwise hurt by someone within the past year? If so, by whom?: No Do you feel safe in your current relationship?: No Current Relationship Is there a partner from a previous relationship who is making you feel unsafe now?: No Are you made to feel afraid or neglected: No Advance Directives: No Advance Directives Information Provided: No Do you have thoughts of harming others: None Do you have a plan to hurt others: No Plan Recently lost weight without trying: No Eating poorly because of decreased appetite: No Nutrition Risks: No Nutritional Risk Poor oral hygiene: No service: No Current occupational status: disabled Meds Allergies Allergy/AdvReac Type Severity Reaction Status Date / Time No Known Allergies Allergy Verified 04/25/21 17:24 Active Medications: Current Medications Generic Name Dose Route Start Last Admin Trade Name Freq PRN Reason Stop Dose Admin Acetaminophen 650 mg 04/25/21 18:15 Acetaminophen 325 Mg Tablet PO Q6H PRN Pain Albuterol Sulfate 2 puff 04/25/21 18:15 Albuterol Sulfate 90 Mcg 8 Gm Inhaler INHALE QID PRN shortness of breath or wheezin Albuterol/Ipratropium 3 ml 04/25/21 18:15 Albuterol/Iprat 2.5/0.5mg 3 Ml Ampul.Neb INHALE Q6H PRN Wheezing Aspirin 81 mg 04/26/21 09:00 04/27/21 08:56 Aspirin Enteric Coated 81 Mg Tablet. PO 81 mg DAILY ELISSA Administration Atorvastatin Calcium 20 mg 04/25/21 21:00 04/27/21 20:27 Atorvastatin Calcium 20 Mg Tablet PO 20 mg BEDTIME ELISSA Administration Benztropine Mesylate 1 mg 04/25/21 21:00 04/27/21 20:27 Benztropine Mesylate 1 Mg Tablet PO 1 mg BID ELISSA Administration Clozapine 300 mg 04/25/21 21:00 04/27/21 20:26 Clozapine 100 Mg Tablet PO 300 mg BEDTIME ELISSA Administration Ferrous Sulfate 324 mg 04/25/21 21:00 04/27/21 20:27 Ferrous Sulfate 324 Mg Tablet. PO 324 mg BID ELISSA Administration Insulin Glargine 30 unit 04/27/21 09:00 04/27/21 09:34 Insulin Glargine,Hum.Rec.Anlog 100 Unit/Ml 10 Ml Vial SUBCUT Not Given DAILY [facility] Insulin Human Lispro 0 unit 04/25/21 21:00 04/28/21 07:28 Insulin Lispro 100 Unit/Ml 3 Ml Vial SUBCUT [facility] Protocol Non-Formulary Medication 1 vial 04/25/21 21:00 Budesonide INHALE BID [facility] Omeprazole 20 mg 04/26/21 09:30 04/28/21 05:28 Omeprazole 20 Mg/10 Ml Susp.Recon PO Not Given DAILY@0630 [facility] Ondansetron HCl 4 mg 04/25/21 18:15 Ondansetron Hcl 4 Mg/2 Ml Vial IVPUSH Q8H PRN Nausea and Vomiting Paliperidone Palmitate 156 mg 05/13/21 09:00 Paliperidone Palmitate 156 Mg/Ml Syringe IM Q28D [facility] Paroxetine HCl 40 mg 04/26/21 09:00 04/27/21 08:56 Paroxetine Hcl 40 Mg Tablet PO 40 mg DAILY ELISSA Administration Perphenazine 8 mg 04/25/21 21:00 04/27/21 20:26 Perphenazine 8 Mg Tablet PO 8 mg BEDTIME ELISSA Administration Perphenazine 16 mg 04/25/21 21:00 04/27/21 20:26 Perphenazine 8 Mg Tablet PO 16 mg BID [facility] Administration Pharmacy Consult 1 each 04/25/21 17:04 Consult Rx Perform Med Rec MISCELLANE ONCE PRN Consult order Sodium Chloride 3 ml 04/26/21 00:00 04/27/21 20:27 0.9 % Sodium Chloride Flush 3 Ml Syringe IVFLUSH 3 ml QSHIFT [facility] Administration Home Medications Medication Instructions Recorded Confirmed Last Taken Type aspirin 1 tab PO DAILY 10/07/20 04/25/21 04/25/21 History benztropine 1 tab PO BID 10/07/20 04/25/21 04/25/21 History budesonide 1 vial INHALATION BID 10/07/20 04/25/21 04/25/21 History clozapine 3 tab PO BEDTIME 10/07/20 04/25/21 04/24/21 History metformin 1 tab PO BID@0800,1700 10/07/20 04/25/21 04/25/21 History perphenazine 8 mg PO BEDTIME 10/07/20 04/25/21 04/24/21 History simvastatin 40 mg PO BEDTIME 10/07/20 04/25/21 04/24/21 History acetaminophen [Tylenol] 650 mg PO Q6H PRN 04/25/21 04/25/21 Unknown History albuterol sulfate [ProAir HFA] 2 inh INHALATION QID PRN 04/25/21 04/25/21 Unknown History ferrous sulfate 324 mg PO BID 04/25/21 04/25/21 04/25/21 History insulin glargine [Lantus Solostar 40 unit SUBCUT DAILY 04/25/21 04/25/21 04/25/21 History U-100 Insulin] ipratropium-albuterol 3 ml INHALATION Q6H PRN 04/25/21 04/25/21 Unknown History lisinopril 10 mg PO DAILY 04/25/21 04/25/21 04/25/21 History magnesium 250 mg PO BID 04/25/21 04/25/21 04/25/21 History paliperidone palmitate [Invega 156 mg IM Q28D 04/25/21 04/25/21 04/15/21 History Sustenna] pantoprazole 40 mg PO BEDTIME 04/25/21 04/25/21 04/24/21 History paroxetine HCl 40 mg PO DAILY 04/25/21 04/25/21 04/25/21 History perphenazine 1 tab PO BID 04/25/21 04/25/21 04/25/21 History Exam Exam Date and Time: April 28, [id number] Height,Weight and Vital Signs: Height 5 ft 9 in Weight 180 lb Last Vital Signs Temp 97.7 F 04/28/21 09:01 Pulse 93 04/28/21 09:01 Resp 14 04/28/21 09:01 BP 121/95 H 04/28/21 09:01 Pulse Ox 97 04/28/21 09:01 Pertinent Lab Results Pertinent Lab Results: Laboratory Tests 04/25/21 04/25/21 04/25/21 14:50 15:57 15:57 WBC 8.9 RBC 4.12 L Hgb 8.2 L Hct 28.4 L MCV 68.9 L MCH 19.9 L MCHC 28.9 L RDW 18.8 H Plt Count 344 MPV 9.8 Immature Gran % (Auto) 0.3 Neut % (Auto) 79.5 H Lymph % (Auto) 10.9 L Andrews % (Auto) 8.5 Eos % (Auto) 0.1 Baso % (Auto) 0.7 Lymph # (Auto) 1.0 L Andrews # (Auto) 0.8 Eos # (Auto) 0.0 Baso # (Auto) 0.1 Abs Immat Gran (auto) 0.03 Absolute Neuts (auto) 7.1 Absolute Nucleated RBC 0.000 Nucleated RBC % (auto) 0.0 Sodium 136 Potassium 6.5 H* D Chloride 105 Carbon Dioxide 21 L Anion Gap 17 BUN 58 H D Creatinine 2.86 H Estim Creat Clear Calc 29.8 Estimated GFR 23 POC Glucose 144 H Random Glucose 152 H Calcium 9.1 Magnesium 2.4 Iron TIBC % Saturation Unsat Iron Binding Ferritin Total Bilirubin 0.4 Direct Bilirubin < 0.2 AST 22 D ALT 19 Alkaline Phosphatase 110 D Troponin I High Sens Total Protein 6.4 L Albumin 3.8 Vitamin B12 Folate Urine Color Urine Appearance Urine pH Ur Specific [place] Urine Protein Urine Glucose (UA) Urine Ketones Urine Blood Urine Nitrite Ur Leukocyte Esterase U Random Total Protein Urine Creatinine Urine Microalbumin Microalb/Creat Ratio COVID-19 ([facility]) COVID-19 Clin Com 04/25/21 04/25/21 04/25/21 15:57 16:56 17:20 WBC RBC Hgb Hct MCV MCH MCHC RDW Plt Count MPV Immature Gran % (Auto) Neut % (Auto) Lymph % (Auto) Andrews % (Auto) Eos % (Auto) Baso % (Auto) Lymph # (Auto) Andrews # (Auto) Eos # (Auto) Baso # (Auto) Abs Immat Gran (auto) Absolute Neuts (auto) Absolute Nucleated RBC Nucleated RBC % (auto) Sodium Potassium Chloride Carbon Dioxide Anion Gap BUN Creatinine Estim Creat Clear Calc Estimated GFR POC Glucose Random Glucose Calcium Magnesium Iron TIBC % Saturation Unsat Iron Binding Ferritin Total Bilirubin Direct Bilirubin AST ALT Alkaline Phosphatase Troponin I High Sens < 3.5 Total Protein Albumin Vitamin B12 Folate Urine Color YELLOW Urine Appearance CLEAR Urine pH 5.5 Ur Specific [place] 1.020 Urine Protein NEG Urine Glucose (UA) NEG Urine Ketones NEG Urine Blood NEG Urine Nitrite NEG Ur Leukocyte Esterase NEG U Random Total Protein Urine Creatinine Urine Microalbumin Microalb/Creat Ratio COVID-19 ([facility]) Negative COVID-19 Clin Com See Note 04/25/21 04/25/21 04/25/21 17:46 20:20 20:24 WBC RBC Hgb Hct MCV MCH MCHC RDW Plt Count MPV Immature Gran % (Auto) Neut % (Auto) Lymph % (Auto) Andrews % (Auto) Eos % (Auto) Baso % (Auto) Lymph # (Auto) Andrews # (Auto) Eos # (Auto) Baso # (Auto) Abs Immat Gran (auto) Absolute Neuts (auto) Absolute Nucleated RBC Nucleated RBC % (auto) Sodium 140 Potassium 6.5 H* Chloride 110 H Carbon Dioxide 25 Anion Gap 12 BUN 49 H Creatinine 2.23 H Estim Creat Clear Calc 38.3 Estimated GFR 31 POC Glucose 132 H 159 H Random Glucose 160 H Calcium 9.0 Magnesium Iron TIBC % Saturation Unsat Iron Binding Ferritin Total Bilirubin Direct Bilirubin AST ALT Alkaline Phosphatase Troponin I High Sens Total Protein Albumin Vitamin B12 Folate Urine Color Urine Appearance Urine pH Ur Specific [place] Urine Protein Urine Glucose (UA) Urine Ketones Urine Blood Urine Nitrite Ur Leukocyte Esterase U Random Total Protein Urine Creatinine Urine Microalbumin Microalb/Creat Ratio COVID-19 ([facility]) COVID-19 Clin Com 04/25/21 04/26/21 04/26/21 23:07 01:56 03:31 WBC RBC Hgb Hct MCV MCH MCHC RDW Plt Count MPV Immature Gran % (Auto) Neut % (Auto) Lymph % (Auto) Andrews % (Auto) Eos % (Auto) Baso % (Auto) Lymph # (Auto) Andrews # (Auto) Eos # (Auto) Baso # (Auto) Abs Immat Gran (auto) Absolute Neuts (auto) Absolute Nucleated RBC Nucleated RBC % (auto) Sodium 141 141 141 Potassium 6.3 H* 6.0 H* 5.8 H Chloride 112 H 112 H 113 H Carbon Dioxide 24 25 23 Anion Gap 11 L 10 L 11 L BUN 43 H 39 H 37 H Creatinine 1.92 H 1.67 H 1.54 H Estim Creat Clear Calc 44.4 51.1 55.4 Estimated GFR 37 43 47 POC Glucose Random Glucose 211 H 100 D 172 H D Calcium 8.7 9.0 8.6 Magnesium Iron TIBC % Saturation Unsat Iron Binding Ferritin Total Bilirubin Direct Bilirubin AST ALT Alkaline Phosphatase Troponin I High Sens Total Protein Albumin Vitamin B12 Folate Urine Color Urine Appearance Urine pH Ur Specific [place] Urine Protein Urine Glucose (UA) Urine Ketones Urine Blood Urine Nitrite Ur Leukocyte Esterase U Random Total Protein Urine Creatinine Urine Microalbumin Microalb/Creat Ratio COVID-19 ([facility]ERS) COVID-19 Clin Com 04/26/21 04/26/21 04/26/21 06:31 06:31 07:21 WBC 4.8 RBC 3.73 L Hgb 7.4 L Hct 25.6 L MCV 68.6 L MCH 19.8 L MCHC 28.9 L RDW 18.6 H Plt Count 327 MPV 10.0 Immature Gran % (Auto) 0.4 Neut % (Auto) 61.2 Lymph % (Auto) 22.5 Andrews % (Auto) 15.1 H Eos % (Auto) 0.2 Baso % (Auto) 0.6 Lymph # (Auto) 1.1 L Andrews # (Auto) 0.7 Eos # (Auto) 0.0 Baso # (Auto) 0.0 Abs Immat Gran (auto) 0.02 Absolute Neuts (auto) 3.0 Absolute Nucleated RBC 0.000 Nucleated RBC % (auto) 0.0 Sodium 140 Potassium 5.7 H Chloride 113 H Carbon Dioxide 24 Anion Gap 9 L BUN 34 H Creatinine 1.29 Estim Creat Clear Calc 66.2 Estimated GFR 58 POC Glucose 85 Random Glucose 92 D Calcium 8.6 Magnesium Iron TIBC % Saturation Unsat Iron Binding Ferritin Total Bilirubin Direct Bilirubin AST ALT Alkaline Phosphatase Troponin I High Sens Total Protein Albumin Vitamin B12 Folate Urine Color Urine Appearance Urine pH Ur Specific [place] Urine Protein Urine Glucose (UA) Urine Ketones Urine Blood Urine Nitrite Ur Leukocyte Esterase U Random Total Protein Urine Creatinine Urine Microalbumin Microalb/Creat Ratio COVID-19 ([facility]) COVID-19 Clin Com 04/26/21 04/26/21 04/26/21 11:17 16:21 18:58 WBC RBC Hgb Hct MCV MCH MCHC RDW Plt Count MPV Immature Gran % (Auto) Neut % (Auto) Lymph % (Auto) Andrews % (Auto) Eos % (Auto) Baso % (Auto) Lymph # (Auto) Andrews # (Auto) Eos # (Auto) Baso # (Auto) Abs Immat Gran (auto) Absolute Neuts (auto) Absolute Nucleated RBC Nucleated RBC % (auto) Sodium 142 Potassium 5.5 H Chloride 111 H Carbon Dioxide 26 Anion Gap 11 L BUN Creatinine Estim Creat Clear Calc Estimated GFR POC Glucose 73 124 H Random Glucose Calcium Magnesium Iron 65 TIBC 455 H % Saturation 14 L Unsat Iron Binding 390 Ferritin Cancelled Total Bilirubin Direct Bilirubin AST ALT Alkaline Phosphatase Troponin I High Sens Total Protein Albumin Vitamin B12 Folate Urine Color Urine Appearance Urine pH Ur Specific [place] Urine Protein Urine Glucose (UA) Urine Ketones Urine Blood Urine Nitrite Ur Leukocyte Esterase U Random Total Protein Urine Creatinine Urine Microalbumin Microalb/Creat Ratio COVID-19 ([facility]ERS) COVID-19 Clin Com 04/26/21 04/26/21 04/26/21 18:58 20:12 22:22 WBC RBC Hgb Hct MCV MCH MCHC RDW Plt Count MPV Immature Gran % (Auto) Neut % (Auto) Lymph % (Auto) Andrews % (Auto) Eos % (Auto) Baso % (Auto) Lymph # (Auto) Andrews # (Auto) Eos # (Auto) Baso # (Auto) Abs Immat Gran (auto) Absolute Neuts (auto) Absolute Nucleated RBC Nucleated RBC % (auto) Sodium Potassium Chloride Carbon Dioxide Anion Gap BUN Creatinine Estim Creat Clear Calc Estimated GFR POC Glucose 110 Random Glucose Calcium Magnesium Iron TIBC % Saturation Unsat Iron Binding Ferritin Total Bilirubin Direct Bilirubin AST ALT Alkaline Phosphatase Troponin I High Sens Total Protein Albumin Vitamin B12 247 Folate 8.4 Urine Color Urine Appearance Urine pH Ur Specific [place] Urine Protein Urine Glucose (UA) Urine Ketones Urine Blood Urine Nitrite Ur Leukocyte Esterase U Random Total Protein < 7 Urine Creatinine 62.03 Urine Microalbumin 11.0 Microalb/Creat Ratio 17.7 COVID-19 ([facility]ERS) COVID-19 Clin Com 04/27/21 04/27/21 04/27/21 05:50 07:21 11:12 WBC RBC Hgb Hct MCV MCH MCHC RDW Plt Count MPV Immature Gran % (Auto) Neut % (Auto) Lymph % (Auto) Andrews % (Auto) Eos % (Auto) Baso % (Auto) Lymph # (Auto) Andrews # (Auto) Eos # (Auto) Baso # (Auto) Abs Immat Gran (auto) Absolute Neuts (auto) Absolute Nucleated RBC Nucleated RBC % (auto) Sodium 142 Potassium 5.0 Chloride 108 Carbon Dioxide 27 Anion Gap 12 BUN 21 H Creatinine 1.07 Estim Creat Clear Calc 79.8 Estimated GFR > 60 POC Glucose 105 146 H Random Glucose 100 Calcium 9.1 Magnesium Iron TIBC % Saturation Unsat Iron Binding Ferritin 6 L Total Bilirubin Direct Bilirubin AST ALT Alkaline Phosphatase Troponin I High Sens Total Protein Albumin Vitamin B12 Folate Urine Color Urine Appearance Urine pH Ur Specific [place] Urine Protein Urine Glucose (UA) Urine Ketones Urine Blood Urine Nitrite Ur Leukocyte Esterase U Random Total Protein Urine Creatinine Urine Microalbumin Microalb/Creat Ratio COVID-19 ([facility]ERS) COVID-19 Clin Com 04/27/21 04/27/21 04/28/21 16:20 20:37 06:10 WBC 3.8 L RBC 4.32 L Hgb 8.4 L Hct 29.5 L MCV 68.3 L MCH 19.4 L MCHC 28.5 L RDW 18.9 H Plt Count 308 MPV 10.2 Immature Gran % (Auto) 0.3 Neut % (Auto) 57.1 Lymph % (Auto) 27.4 Andrews % (Auto) 14.4 H Eos % (Auto) 0.3 Baso % (Auto) 0.5 Lymph # (Auto) 1.0 L Andrews # (Auto) 0.5 Eos # (Auto) 0.0 Baso # (Auto) 0.0 Abs Immat Gran (auto) 0.01 Absolute Neuts (auto) 2.2 Absolute Nucleated RBC 0.000 Nucleated RBC % (auto) 0.0 Sodium Potassium Chloride Carbon Dioxide Anion Gap BUN Creatinine Estim Creat Clear Calc Estimated GFR POC Glucose 150 H 171 H Random Glucose Calcium Magnesium Iron TIBC % Saturation Unsat Iron Binding Ferritin Total Bilirubin Direct Bilirubin AST ALT Alkaline Phosphatase Troponin I High Sens Total Protein Albumin Vitamin B12 Folate Urine Color Urine Appearance Urine pH Ur Specific [place] Urine Protein Urine Glucose (UA) Urine Ketones Urine Blood Urine Nitrite Ur Leukocyte Esterase U Random Total Protein Urine Creatinine Urine Microalbumin Microalb/Creat Ratio COVID-19 ([facility]) COVID-19 Clin Com 04/28/21 04/28/21 04/28/21 06:10 07:23 09:04 WBC RBC Hgb Hct MCV MCH MCHC RDW Plt Count MPV Immature Gran % (Auto) Neut % (Auto) Lymph % (Auto) Andrews % (Auto) Eos % (Auto) Baso % (Auto) Lymph # (Auto) Andrews # (Auto) Eos # (Auto) Baso # (Auto) Abs Immat Gran (auto) Absolute Neuts (auto) Absolute Nucleated RBC Nucleated RBC % (auto) Sodium 139 Potassium 4.2 Chloride 105 Carbon Dioxide 27 Anion Gap 11 L BUN 17 H Creatinine 0.97 Estim Creat Clear Calc 88.0 Estimated GFR > 60 POC Glucose 145 H 142 H Random Glucose 139 H D Calcium 9.1 Magnesium Iron TIBC % Saturation Unsat Iron Binding Ferritin Total Bilirubin Direct Bilirubin AST ALT Alkaline Phosphatase Troponin I High Sens Total Protein Albumin Vitamin B12 Folate Urine Color Urine Appearance Urine pH Ur Specific [place] Urine Protein Urine Glucose (UA) Urine Ketones Urine Blood Urine Nitrite Ur Leukocyte Esterase U Random Total Protein Urine Creatinine Urine Microalbumin Microalb/Creat Ratio COVID-19 ([facility]) COVID-19 Clin Com Assessment and Plan Assessment Anesthesia Assessment: Anesthesia Plan Discussed and Chart Reviewed Final Anesthetic Review NPO: Yes ASA Class: III Final Preanesthetic Review: No Changes in Pt Med Stat, Meds/Allgs Chart Reviewed, Consent Obtained/Reviewed and Anes Risks/Benef Reviewed Patient Risk: Intermediate Procedure Risk: Low Anesthetic Plan Anesthetic Plan: MAC: Disposition: Standard PACU
[2021-04-28] MEDS: 0.9 % Sodium Chloride Flush 3 ML SYRINGE IVFLUSH (09:16)
[2021-04-28 10:13] LABS: Amphetamine Screen Urine Not Detected (Not Detect); Barbiturates, Urine Not Detected (Not Detect); Benzodiazepines Screen Urine Not Detected (Not Detect); Cannabinoid Screen Urine Not Detected (Not Detect); Cocaine Screen Urine Not Detected (Not Detect); Opiate Screen Urine Not Detected (Not Detect); Phencyclidine Screen Urine Not Detected (Not Detect)
[2021-04-28 11:56] LABS: Glucose, Whole Blood 139 mg/dL (60-115)
[2021-04-28] MEDS: Ferrous Sulfate 324 MG TABLET.DR PO (12:05)
[2021-04-28] MEDS: PARoxetine HCL 40 MG TABLET PO (12:05)
[2021-04-28] MEDS: Benztropine Mesylate 1 MG TABLET PO (12:05)
[2021-04-28] MEDS: Aspirin Enteric Coated 81 MG TABLET.DR PO (12:06)
[2021-04-28] MEDS: Insulin Glargine,Hum.rec.anlog 100 UNIT/ML 10 ML VIAL 30 UNIT SUBCUT (12:07)
[2021-04-28] MEDS: Perphenazine 8 MG TABLET 16 MG PO (12:17)
--- NOTE | 2021-04-28 12:40 | P.DS_ITS ---
DS: Providers Provider Date of Service: 04/28/21 Date of admission: 04/25/21 18:15 Primary care physician: Nighat Muñoz MD Consults: 04/25/21 18:15 Consult to Nephrology Routine Consulting Provider: Hang Romo Reason for consultation: SANDIP, hyperkalemia Has provider been notified: No 04/26/21 12:45 Consult to Gastroenterology Routine Consulting Provider: Jimmie Sung Reason for consultation: iron def Has provider been notified: Yes DS: Diagnosis Discharge Diagnosis (1) SANDIP (acute kidney injury): Status: Acute (2) Iron deficiency anemia: Status: Acute (3) Hyperkalemia: Status: Acute (4) Hypotension: Status: Acute DS: Medications Discharge Medications Home Medications: Home Medications Medication Instructions Recorded Confirmed benztropine 1 tab PO BID 10/07/20 04/25/21 budesonide 1 vial INHALATION BID 10/07/20 04/25/21 clozapine 3 tab PO BEDTIME 10/07/20 04/25/21 metformin 1 tab PO BID@0800,1700 10/07/20 04/25/21 perphenazine 8 mg PO BEDTIME 10/07/20 04/25/21 simvastatin 40 mg PO BEDTIME 10/07/20 04/25/21 Invega Sustenna 156 mg IM Q28D 04/25/21 04/25/21 Lantus Solostar U-100 Insulin 40 unit SUBCUT DAILY 04/25/21 04/25/21 acetaminophen [Tylenol] 650 mg PO Q6H PRN 04/25/21 04/25/21 albuterol sulfate [ProAir HFA] 2 inh INHALATION QID PRN 04/25/21 04/25/21 ferrous sulfate 324 mg PO BID 04/25/21 04/25/21 ipratropium-albuterol 3 ml INHALATION Q6H PRN 04/25/21 04/25/21 magnesium 250 mg PO BID 04/25/21 04/25/21 paroxetine HCl 40 mg PO DAILY 04/25/21 04/25/21 perphenazine 1 tab PO BID 04/25/21 04/25/21 Previous Rx's Medication Instructions Recorded pantoprazole [Protonix] 40 mg PO BID #60 tab 04/28/21 DS: Summary Hospital Course Hospital Course: History of presenting illness Chief Complaint: Fall 55-year-old man transferred from care home after a mechanical fall. He has history of schizophrenia, depression, alcohol syndrome. Apparently he tripped and fell on the carpet and caught himself with his hands. Apparently when he stood up he felt dizzy. Patient is somewhat of a poor historian. In the ER his potassium was noted to be elevated at 6.5. He did receive insulin, D50 and Kayexalate. His creatinine was also noted to be elevated at 2.86. Head CT and chest x-ray both negative for any acute abnormality. Urinalysis shows no infection. Blood pressure was on the softer side with systolic blood pressure in the 90s. He was given 2 L of IV fluids in the ER along with treatment for hyperkalemia. Past medical history COPD (chronic obstructive pulmonary disease) Diabetes Dysphagia alcohol syndrome HTN (hypertension) Hyperlipidemia [facility] course 55-year-old man transferred from a care home after a mechanical fall and dizziness patient diagnosed to have near syncope likely due to profound iron deficiency anemia , dehydration, acute kidney injury, hyperkalemia and hypotension patient treated with IV fluids, lisinopril was held due to low blood pressure, renal function normalized, hyperkalemia resolved, patient is not being discharged on lisinopril since blood pressure remains stable if noted to have up trend in blood pressure consider Norvasc 5 mg daily. In regard to diabetes continue home medication In regard to profound Iron deficiency anemia patient underwent upper endoscopy and colonoscopy that showed esophagitis gastritis and internal hemorrhoids patient has been instructed to hold aspirin and avoid all NSAIDs Protonix has been increased to 40 mg twice daily if patient developed any symptoms of internal hemorrhoids, he can use sitz bathand anusol for now recommend to use high-fiber diet continue iron supplement Hyperlipidemia continue statin In regard to mental health issues continue home medication, no behavioral issues noted Time Spent with Patient Time attestation: Total time spent providing and/or coordinating discharge services: Discharge coordination time: Greater than 30 minutes Quality: Stroke Does the patient have a stroke diagnosis?: No Physical Exam Vital Signs: Vital Signs: Last Vital Signs Temp 97.1 F 04/28/21 11:51 Pulse 85 04/28/21 11:51 Resp 19 04/28/21 11:51 BP 141/81 H 04/28/21 11:51 Pulse Ox 94 04/28/21 11:51 Body Mass Index 26.6 General no acute distress. Neck supple no JVD. CVS regular rate rhythm, Respiratory lungs clear to auscultation, no respiratory distress, no wheeze, no rhonchi. Gastrointestinal abdomen soft, nontender, bowel sounds audible, no guarding , no rigidity. Extremities no edema. Neuro nonfocal, cleft lip Skin no rash DS: Data Data Completed and Pending Pending studies at discharge: Pending at discharge 04/28/21 10:36 Surgical [PTH] Routine Labs on day of discharge: Laboratory Results - last 24 hr 04/27/21 04/27/21 04/28/21 16:20 20:37 06:10 WBC 3.8 L RBC 4.32 L Hgb 8.4 L Hct 29.5 L MCV 68.3 L MCH 19.4 L MCHC 28.5 L RDW 18.9 H Plt Count 308 MPV 10.2 Immature Gran % (Auto) 0.3 Neut % (Auto) 57.1 Lymph % (Auto) 27.4 [place] % (Auto) 14.4 H Eos % (Auto) 0.3 Baso % (Auto) 0.5 Lymph # (Auto) 1.0 L [place] # (Auto) 0.5 Eos # (Auto) 0.0 Baso # (Auto) 0.0 Abs Immat Gran (auto) 0.01 Absolute Neuts (auto) 2.2 Absolute Nucleated RBC 0.000 Nucleated RBC % (auto) 0.0 Sodium Potassium Chloride Carbon Dioxide Anion Gap BUN Creatinine Estim Creat Clear Calc Estimated GFR POC Glucose 150 H 171 H Random Glucose Calcium Urine Opiates Screen Ur Barbiturates Screen Ur Phencyclidine Scrn Ur Amphetamines Screen U Benzodiazepines Scrn Urine Cocaine Screen U Marijuana (THC) Screen 04/28/21 04/28/21 04/28/21 06:10 07:23 09:04 WBC RBC Hgb Hct MCV MCH MCHC RDW Plt Count MPV Immature Gran % (Auto) Neut % (Auto) Lymph % (Auto) [place] % (Auto) Eos % (Auto) Baso % (Auto) Lymph # (Auto) [place] # (Auto) Eos # (Auto) Baso # (Auto) Abs Immat Gran (auto) Absolute Neuts (auto) Absolute Nucleated RBC Nucleated RBC % (auto) Sodium 139 Potassium 4.2 Chloride 105 Carbon Dioxide 27 Anion Gap 11 L BUN 17 H Creatinine 0.97 Estim Creat Clear Calc 88.0 Estimated GFR > 60 POC Glucose 145 H 142 H Random Glucose 139 H D Calcium 9.1 Urine Opiates Screen Ur Barbiturates Screen Ur Phencyclidine Scrn Ur Amphetamines Screen U Benzodiazepines Scrn Urine Cocaine Screen U Marijuana (THC) Screen 04/28/21 04/28/21 09:30 11:45 WBC RBC Hgb Hct MCV MCH MCHC RDW Plt Count MPV Immature Gran % (Auto) Neut % (Auto) Lymph % (Auto) [place] % (Auto) Eos % (Auto) Baso % (Auto) Lymph # (Auto) [place] # (Auto) Eos # (Auto) Baso # (Auto) Abs Immat Gran (auto) Absolute Neuts (auto) Absolute Nucleated RBC Nucleated RBC % (auto) Sodium Potassium Chloride Carbon Dioxide Anion Gap BUN Creatinine Estim Creat Clear Calc Estimated GFR POC Glucose 139 H Random Glucose Calcium Urine Opiates Screen Not Detected Ur Barbiturates Screen Not Detected Ur Phencyclidine Scrn Not Detected Ur Amphetamines Screen Not Detected U Benzodiazepines Scrn Not Detected Urine Cocaine Screen Not Detected U Marijuana (THC) Screen Not Detected Discharge Plan Discharge Patient Disposition: Home, Self-Care Discharge Diagnosis: Near-syncope Acute kidney injury Hyperkalemia Iron deficiency anemia Gastritis Esophageal Referrals: Nighat Muñoz MD [Primary Care Provider] - 1 Week Discharge Medications: New pantoprazole [Protonix] 40 mg tablet,delayed release (DR/EC) 40 mg PO BID Qty: 60 RF: 0 Continued clozapine 100 mg tablet 3 tab PO BEDTIME RF: 0 simvastatin 40 mg tablet 40 mg PO BEDTIME RF: 0 metformin 1,000 mg tablet 1 tab PO BID@0800,1700 RF: 0 benztropine 1 mg tablet 1 tab PO BID RF: 0 budesonide 0.5 mg/2 mL suspension for nebulization 1 vial inhalation BID RF: 0 perphenazine 8 mg tablet 8 mg PO BEDTIME RF: 0 ipratropium-albuterol 0.5 mg-3 mg(2.5 mg base)/3 mL solution for nebulization 3 ml inhalation Q6H PRN (Reason: Wheezing) RF: 0 paroxetine HCl 40 mg tablet 40 mg PO DAILY RF: 0 perphenazine 16 mg tablet 1 tab PO BID RF: 0 Lantus Solostar U-100 Insulin 100 unit/mL (3 mL) insulin pen 40 unit subcut DAILY RF: 0 Invega Sustenna 156 mg/mL syringe 156 mg IM Q28D RF: 0 magnesium 250 mg Tablet 250 mg PO BID RF: 0 albuterol sulfate [ProAir HFA] 90 mcg/actuation HFA aerosol inhaler 2 inh inhalation QID PRN (Reason: shortness of breath or wheezing) RF: 0 ferrous sulfate 324 mg (65 mg iron) tablet,delayed release (DR/EC) 324 mg PO BID RF: 0 acetaminophen [Tylenol] 325 mg Tablet 650 mg PO Q6H PRN (Reason: Pain) RF: 0 Discontinued aspirin 81 mg tablet,delayed release (DR/EC) 1 tab PO DAILY RF: 0 pantoprazole 40 mg tablet,delayed release (DR/EC) 40 mg PO BEDTIME RF: 0 lisinopril 10 mg tablet 10 mg PO DAILY RF: 0 Discharge Orders: Discharge Order (Routine); Ordered 04/28/21 Ordered By: Rosaura Shannon Diet: diabetic diet Activity on Discharge: As tolerated Stand Alone Forms: Patient Portal Discharge page Care Plan Goals: Near syncope due to dehydration and anemia, hold lisinopril due to low blood pressure and hyperkalemia if noted to have elevated blood pressure consider low- dose Norvasc, in regard to anemia upper endoscopy was done that showed esophagitis and gastritis colonoscopy showed internal hemorrhoids take high- fiber diet avoid constipation, treatment of internal hemorrhoid as needed if they get inflamed Health Concerns: Diabetes mellitus continue home med Esophagitis gastritis dose of Protonix increased to twice daily, stop aspirin no Advil Motrin drugs,continue iron Acute kidney injury resolved was due to dehydration and low blood pressure Plan of Treatment: follow up with pcp in 7-[address] Wilder call for appointment Assessment: as above
--- NOTE | 2021-04-28 16:06 | MHC.CM.PN ---
POST DISCHARGE NOTE CALL RECEIVED FROM PIETER OF PENITENTIARY SETTING. PATIENT IS REQUIRING DAILY ASSIST WITH LANTUS AND POC. [facility] IS UNABLE TO PROVIDE (ACCORDING TO PIETER) ELYSE OF [facility] GIVES AUTH TO PLACE REFERRAL TO [facility] TO FIND A DAILY SERVICE CALL TO [place] ([phone]) RESULTS IN STAFF GONE FOR THE DAY CM TO ATTEMPT ON SUNDAY
--- NOTE | 2021-04-28 16:21 | P.F2F_ITS ---
Service Date Service Date: 04/28/21 Encounter Date of encounter: 04/28/21 Reasons for Services Signs and symptoms assessed: Near-syncope with hypotension , acute renal injury and anemia, need close monitoring of blood pressure, blood sugar with history of diabetes on insulin Reason for senior care: diabetic teaching, medication management, teach disease management and GI/ assessment Homebound: Leaving the home is medically contraindicated at this time without the asist of a device and/or another person due th the listed conditions above and below. Reason homebound: weakness related to hospital stay Homebound supporting statement: 55-year-old with history of schizophrenia, alcohol syndrome underlying history of diabetes hypertension presented with near-syncope diagnosed to have profound anemia and acute renal injury needs senior care care for management of blood sugar and hypertension since patient is unable to manage his medical issues due to underlying psychiatric issues does not drive and home bound. Certification: Based on the above findings, I certify that this patient is confined to the home and needs intermittent senior care care, physical therapy and/or speech therapy, or continues to need occupational therapy. The patient is under my care, and I have initiated the establishment of the plan of care. The patient will be followed by a physician who will periodically review the plan of care.
--- NOTE | 2021-04-29 13:01 | MHC.CM.PN ---
NURSE CARE MANAGEMENT ELECTRONIC MEDICAL RECORD REVIEWED, FOLLOWING UP ON HOME CARE FOR THIS PATIENT. [facility] WAS UNABLE TO PROVIDE SERVICES [facility] AND SEVERAL OTHER AGENCIES WHEN I CALLED. RE CALLED [facility] AND SPOKE WITH GAVIOTA [phone] SHE REPORTED SHE NEEDED TO HAVE PHYSICIAN DOCUMENT NEED FOR QD INSULING ADMINISTRATION BY NURSING, (THEY WERE FOLLOWING HIM AT THE [facility] , BUT NOT QD, I CALLED TO [facility] AND SPOKE WITH ELYSE [phone] AT [facility] INSURANCE , SHE WILL GIVE INS AUTH FOR [facility] TO DO QD NURRISNG VISIST, SHE WILL HAVE [employer] BO[employer]ER KALEB LANG CALL PRIMARY CARE PHYSICIAN AND GET ORDER OVER TO [facility] FOR QD NURSING INSULIN ADMINISTRATION CALLED TO PIETER AT THE [facility] [phone] AND GAVE HER A UPADTE , SHE REPORTED THAT [facility] IS ASSSITING PATIENT WITH HIS ADMINISTRATION OF INSULIN, AND WILL ALSO FOLLOW UP WITH [facility] AND PCP
== END 2021-04-28 15:21 | disposition home or self-care (01) | DRG 381 ==
LOC: HO.ED 15:53 → HO.EDOVER 18:37 → HO.S3 19:15
PROVIDERS: Hospitalist; Internal Medicine; Internal Medicine Gastroenterology; Internal Medicine Nephrology; Nurse Practitioner Family; Admitting Provider Nurse Practitioner Acute Care; Emergency Provider Emergency Medicine; PCP Family Medicine; Visit Provider Hospitalist
PROC: 0DB98ZX Excision of Duodenum, Via Natural or Artificial Opening Endoscopic, Diagnostic (ICD-10-PCS; principal; 2021-04-28 15:30)
DX: K22.11 Ulcer of esophagus with bleeding (principal); N17.9 Acute kidney failure, unspecified; K64.8 Other hemorrhoids; K29.71 Gastritis, unspecified, with bleeding; D50.0 Iron deficiency anemia secondary to blood loss (chronic); E11.9 Type 2 diabetes mellitus without complications; E87.5 Hyperkalemia; E86.0 Dehydration; F25.9 Schizoaffective disorder, unspecified; Q86.0 Fetal alcohol syndrome (dysmorphic); E78.5 Hyperlipidemia, unspecified; I95.1 Orthostatic hypotension; Z20.822 Contact with and (suspected) exposure to COVID-19; Z79.4 Long term (current) use of insulin; Z79.899 Other long term (current) drug therapy
CPT/HCPCS: 36415; 70450; 71046; 76775; 80048; 80051; 80076; 80307; 81003; 82043; 82607; 82728; 82746; 82947; 83540; 83735; 84156; 84484; 85025; 87635; 88305; 88342; 93005; 99285; J0610; J2370

== ENCOUNTER 2021-05-02 10:01 | Inpatient (IN) | payer OTHER, SELFPAY ==
[2021-05-02] VITALS (18 sets, daily range): BP systolic 76–155; BP diastolic 41–73; PULSE 74–144; RESP 18–46; TEMP 37.5–38.8; O2SAT 95–100; BMI 25.7; BMI 25.8
--- NOTE | ~2021-05-02 | XR_ITS ---
EXAMINATION: XR CHEST CLINICAL INFORMATION: Abdominal pain and hypoxia and fever COMPARISON: Chest radiograph 04/25/2021, chest CT 08/13/2020 TECHNIQUE: 2 views of the chest were obtained. FINDINGS: Compared with the prior chest radiograph which was normal, there has been a dramatic change and there is now diffuse infiltrate throughout the right lung consistent with diffuse pneumonia. The left lung is clear. Some old healed right-sided rib fractures are present. No pleural effusions are seen. XR/XR chest 2V IMPRESSION: Diffuse right lung airspace disease consistent with pneumonia
--- NOTE | ~2021-05-02 | CT_ITS ---
EXAMINATION: CT ANGIOGRAM OF THE CHEST WITH AND WITHOUT CONTRAST (CT PULMONARY ANGIOGRAM FOR PE) CLINICAL INFORMATION: Reason for Exam pt c fever, cough hypoxia and tachycardic COMPARISON: Chest x-ray of May 02, 2021 and April 25, 2021 TECHNIQUE: Prior to contrast administration, noncontrast localization images were obtained. Subsequently, multidetector volumetric imaging was performed from the thoracic inlet to below the diaphragms following the administration of 85 mL Omnipaque 350 intravenous contrast. No contrast reaction reported Sagittal, coronal, and MIP oblique sagittal reformatted images were obtained on the CT workstation, uploaded to PACS, and reviewed. This CT examination was performed using dose optimization techniques as appropriate, variously including the following: *Automated exposure control *Adjustment of mA and/or kV according to patient size (this includes techniques or standardized protocols for targeted exams where dose is matched to indication/reason for exam; i.e. extremities or head) *Use of iterative reconstruction technique Total exam dose-length product 218 mGy-cm FINDINGS: QUALITY OF STUDY/CONTRAST BOLUS: Satisfactory. PULMONARY ARTERIES: No central or segmental pulmonary emboli. THORACIC AORTA: No aneurysm or dissection. LUNG: There are diffuse patchy regions of airspace disease seen throughout the right lung. No left lung significant plaque disease is identified. Central airways are patent. PLEURA: No pleural effusion or pneumothorax. MEDIASTINUM: Normal heart size. There is a small pericardial effusion. No hilar or mediastinal lymphadenopathy. No evidence of septal bowing or right heart strain. There is aberrant origin of the right subclavian artery. There is interstitial prominence about the right hilar bronchi. There is question of some mildly prominent subcarinal lymph nodes being present. CHEST WALL/AXILLA: No axillary or internal mammary lymphadenopathy. OSSEOUS STRUCTURES: No acute or suspicious osseous abnormality. There is an old healed bilateral rib fractures. UPPER ABDOMEN: Unremarkable. No reflux of contrast into the hepatic veins to suggest elevated right heart pressures. CT/CT angio chest PE protocol IMPRESSION: No evidence of acute pulmonary artery embolus or thoracic aortic aneurysm or dissection. Diffuse right lung disease consistent with multilobar pneumonia. Small pericardial effusion. Aberrant right subclavian artery. VTE: negative
--- NOTE | ~2021-05-02 | CT_ITS ---
EXAMINATION: CT ABDOMEN AND PELVIS WITH CONTRAST CLINICAL INFORMATION: fevers, cough, abd pain and diarrhea COMPARISON: Renal ultrasound 04/25/2021 TECHNIQUE: Multidetector volumetric images were obtained from the superior aspect of the liver through the pubic symphysis following administration 85 mL of Omnipaque 350 intravenous contrast. Sagittal and coronal reformatted images were obtained on the technologist's workstation. Oral contrast: No This CT examination was performed using dose optimization techniques as appropriate, variously including the following: *Automated exposure control *Adjustment of mA and/or kV according to patient size (this includes techniques or standardized protocols for targeted exams where dose is matched to indication/reason for exam; i.e. extremities or head) *Use of iterative reconstruction technique DLP: 420 mGy-cm FINDINGS: LUNG BASES: See report from chest CT same day. The right lower lobe consolidation LIVER, GALLBLADDER, AND BILIARY TREE: The liver is normal in size, shape, and attenuation. No focal hepatic lesion or biliary ductal dilatation is present. The gallbladder is unremarkable with no evidence of radiopaque gallstones, gallbladder wall thickening, or obvious pericholecystic inflammatory changes. PANCREAS: Unremarkable. SPLEEN: There is mild splenomegaly with the spleen measuring 13 cm in greatest length. ADRENAL GLANDS: Unremarkable. KIDNEYS AND URETERS: The kidneys are normal in size, shape, and attenuation. There is new left-sided hydronephrosis mild caliectasis compared with the prior ultrasound exam. The left ureter is also dilated down to the level of the bladder. No obstructing lesion and/or stone is seen. No right-sided hydronephrosis or hydroureter. No calculi seen. No renal mass lesions are seen. No perinephric stranding. BLADDER: Unremarkable. GASTROINTESTINAL TRACT: The small and large bowel are unremarkable. The appendix is unremarkable. ABDOMINAL WALL: No significant hernia is appreciated. LYMPH NODES: No retroperitoneal lymphadenopathy. VASCULAR: Calcific atherosclerotic changes present in the infrarenal aorta and iliofemoral vessels. No significant stenosis or aneurysm. The celiac SMA and EMILY are all widely patent. PELVIC VISCERA: Prostate and seminal vesicles appear normal. OSSEOUS STRUCTURES: Mild degenerative changes present at T10-T11. No bony destructive lesions seen. CT/CT abdomen pelvis w con IMPRESSION: 1. Left-sided hydronephrosis is present. This was not appreciated on the prior ultrasound from 04/25/2021 2. Mild splenomegaly.
--- NOTE | 2021-05-02 10:37 | ECG_ITS ---
Test Reason : FALL Blood Pressure : / mmHG Vent. Rate : 132 BPM Atrial Rate : 132 BPM P-R Int : 152 ms QRS Dur : 070 ms QT Int : 282 ms P-R-T Axes : 071 086 055 degrees QTc Int : 417 ms Sinus tachycardia Otherwise normal ECG When compared with ECG of 25-APR-2021 22:31, No significant change was found Referred By: Meryl Benavidez Electronically Signed By:JAEL MCKEON
[2021-05-02 10:44] LABS: COVID-19 Test Negative (Negative); IDNOW Serial# 9DD0AD1C
[2021-05-02 11:14] LABS: MANUAL DIFF FLAG NO
[2021-05-02 11:16] LABS: Basophils Percent Auto 0.3 % (0-2); Hematocrit 34.6 % (42-52); Hemoglobin 9.8 g/dl (14.0-18.0); Imm Gran Abs Auto 0.01 X10*3/uL (0.00-0.03); Imm Gran Pct Auto 0.2 % (0.0-0.4); Lymphocytes Absolute Auto 0.3 X10*3/uL (1.2-4.9); Lymphocytes Percent Auto 5.4 % (20-40); Mean Corpuscular HGB Conc 28.3 g/dl (31.0-36.0); Mean Corpuscular Hemoglobin 19.6 pg (27.0-33.0); Mean Corpuscular Volume 69.1 fL (80-98); Mean Platelet Volume 9.9 fL (9.4-12.4); Monocytes Absolute Auto 0.4 X10*3/uL (0.1-1.2); Monocytes Percent Auto 7.3 % (2-11); Neutrophils Absolute Auto 5.2 X10*3/uL (2.0-8.3); Neutrophils Percent Auto 86.8 % (45-73); Platelet Count 346 X10*3/uL (160-400); Red Blood Count 5.01 X10*6/uL (4.60-5.80); Red Cell Distribution Width 20.5 % (11.0-16.0); White Blood Count 5.9 X10*3/uL (4.8-10.8)
[2021-05-02] MEDS: Acetaminophen 325 MG TABLET 975 MG PO (11:21)
[2021-05-02] MEDS: 0.9 % Sodium Chloride 2,041.17 ML 2041.17 ML IV (11:28)
--- NOTE | 2021-05-02 11:30 | PC.NURSE ---
IVF started for a total dose of 2,041.17.
[2021-05-02 11:38] LABS: Lipase 24 U/L (8-78)
[2021-05-02 11:45] LABS: B Type Natriuretic Peptide 35 pg/mL (<100)
--- NOTE | 2021-05-02 11:47 | ED_ITS ---
HPI - Abdominal Pain General Chief Complaint: Abdominal Pain Stated Complaint: ABD PAIN,DIARRHEA,FEVER Time Seen by Provider: 05/02/21 10:37 Source: patient and EMS Mode of arrival: EMS Limitations: other (Dysphagia) History of Present Illness HPI narrative: 55-year-old male with a past medical history of alcohol syndrome with dysphagia, iron deficiency anemia, diabetes, hyperlipidemia, schizoaffective disorder, depression, paranoia, obstructive sleep apnea, recurrent episodes of aspiration pneumonia currently on a pureed diet although non compliant currently [facility] a [facility] presenting to the ED via EMS with fevers, productive cough with shortness of breath, abdominal pain and diarrhea since yesterday worse today. When EMS arrived patient was in the high 80s and they placed an on 4 L of nasal cannula oxygen and his sats increased to the 90s. Patient was recently admitted on 04/25/2021 and discharged on 04/28/2021 for dizziness c fall/SANDIP/iron deficiency anemia/hyperkalemia and hypotension. While he was admitted he underwent upper endoscope and colonoscopy that showed esophagitis and internal hemorrhoids therefore they instructed him to hold aspirin and avoid all NSAIDs. Protonix were increased to 40 mg twice daily. They regulated his electrolyte imbalances and [facility]. MD elicited complaint: abdominal pain Pertinent past history: other (Gastritis, internal hemorrhoids) Onset (ago): day(s) (2 days ) Pain Consistency: constant Location: diffuse Severity: mild Quality: other (pain) Radiation: none Migration to: no migration Exacerbating factors: nothing Relieving factors: nothing Context: other (Recent hospitalization) Associated symptoms: diarrhea, fever, chills and other (productive cough ) Related Data Home Medications Medication Instructions Recorded Confirmed benztropine 1 tab PO BID 10/07/20 05/02/21 budesonide 1 vial INHALATION BID 10/07/20 05/02/21 clozapine 3 tab PO BEDTIME 10/07/20 05/02/21 metformin 1 tab PO BID@0800,1700 10/07/20 05/02/21 perphenazine 8 mg PO BEDTIME 10/07/20 05/02/21 simvastatin 40 mg PO BEDTIME 10/07/20 05/02/21 Invega Sustenna 156 mg IM Q28D 04/25/21 05/02/21 Lantus Solostar U-100 Insulin 40 unit SUBCUT DAILY 04/25/21 05/02/21 acetaminophen [Tylenol] 650 mg PO Q6H PRN 04/25/21 05/02/21 albuterol sulfate [ProAir HFA] 2 inh INHALATION QID PRN 04/25/21 05/02/21 ferrous sulfate 324 mg PO BID 04/25/21 05/02/21 ipratropium-albuterol 3 ml INHALATION Q6H PRN 04/25/21 05/02/21 magnesium 250 mg PO BID 04/25/21 05/02/21 paroxetine HCl 40 mg PO DAILY 04/25/21 05/02/21 perphenazine 16 mg PO BID 04/25/21 05/02/21 Previous Rx's Medication Instructions Recorded pantoprazole [Protonix] 40 mg PO BID #60 tab 04/28/21 Allergies Allergy/AdvReac Type Severity Reaction Status Date / Time No Known Allergies Allergy Verified 04/25/21 17:24 Review of Systems Review of Systems Constitutional : Positive fevers/chills, No Weight loss, No Night Sweats, No Fatigue, No Malaise ENT/Mouth : No Hearing loss, No Ear Pain, No Nasal Congestion, No Sinus Pain, No Hoarseness, No sore throat, No Rhinorrhea, No Swallowing Difficulty Eyes: No Eye Pain, No Swelling, No Redness, No Foreign Body, No Discharge, No Vision Changes Cardiovascular : Positive shortness of breath, No Chest Pain, No Dyspnea on Exertion, No Orthopnea, No Edema, No Palpitations Respiratory : Positive Cough/sputum, No Wheezing, No Smoke Exposure, No Dyspnea Gastrointestinal : Positive abdominal pain/diarrhea, No Nausea, No Vomiting, No Constipation, No Hematochezia, No Melena Genitourinary : no irregular bleeding, No Dysuria, No Urinary Frequency, No Hematuria, No Urinary Incontinence, No Urgency, No Flank Pain, No Urinary Flow Changes, No Hesitancy Musculoskeletal : No joint pain, No Myalgias, No Joint Swelling Skin : No Skin Lesions, No rash Neuro : No Weakness, No Numbness, No Paresthesias, No Loss of Consciousness, No Dizziness, No Headache Psych : No Anxiety/Panic, No Depression, No SI/HI/AH/VH, No Social Issues, Heme/Lymph: No Bruising, No Bleeding,No Lymphadenopathy Endocrine : No Polyuria, No Polydipsia, No Temperature Intolerance Yes all other systems are reviewed and are negative Physical Exam Vital Signs: Vital Signs: Last Vital Signs Temp 99.5 F 05/02/21 15:24 Pulse 110 H 05/02/21 18:02 Resp 28 H 05/02/21 18:02 BP 103/63 05/02/21 18:02 Pulse Ox 100 05/02/21 18:02 Oxygen Flow Rate 2 05/02/21 10:12 Body Mass Index 25.7 vital signs have been reviewed as normal and appeared to be correct. Blood pressure normal. Heart rate tachycardic at 141. Respiration rate tachypneic at 46. Temperature febrile at 101.8. Oxygen saturation hypoxic in the high 80s. Appearance: Alert. Oriented X3. No acute distress. Head: Normal external exam. Normocephalic. Eyes: PERRLA. EOMI. Conjunctiva and sclera normal. Eyelids normal. ENT: Pharynx normal. Uvula midline. Moist mucous membranes. No trismus noted. No drooling noted. No muffled voice noted. Neck: Normal inspection. Neck supple. FROM. No adenopathy. No meningeal signs. CVS: Normal heart rate and rhythm. Heart sound normal. No murmurs noted. Pulses normal throughout. Respiratory: Positive respiratory distress. Painless inspiration. Decreased Breath sounds normal. No wheezes/rales/rhonchi noted. Chest nontender. No accessory muscle usage noted or decreased air movement noted. Abdomen: Soft and mild TTP diffusely. Nondistended. No guarding. No rigidity. Bowel sounds normal in all 4 quadrants. No distention noted. No organomegaly noted. No visible injury noted. No rebound tenderness. Negative Rovsing sign. Negative obturator's sign. Negative psoas sign. Negative Marquez sign. Back: No CVA tenderness. Full range of motion noted. Skin: Skin warm and dry. Normal skin color. Normal skin turgor. No rashes/lesions/lacerations noted. Extremities: No calf tenderness noted. No lower extremity edema is noted. Extremities exhibit normal range of motion. Extremities nontender. Neuro: Oriented X 3. No motor deficit. No sensory deficit. Reflexes normal. Normal steady gait. Course Course Course Narrative: 10:20am - 55-year-old male presenting to the ED via EMS with fevers, productive cough with shortness of breath, abdominal pain and diarrhea since yesterday worse today. When EMS arrived patient was in the high 80s and they placed an on 4 L of nasal cannula oxygen and his sats increased to the 90s. Plan: Labs, chest x-ray, EKG, blood cultures, lactic acid, , CT angio of chest for PE, CT scan abdomen pelvis with IV contrast, UA. Provide 30 cc/kilos for IV fluids then re-evaluate. Reevaluation(s) Reevaluation #1: - labs return patient with baseline anemia similar and improved when compared to prior. Potassium 6.2. BUN/creatinine 33/1.49. Random glucose 229. Magnesium 1.9. Troponin is 7.6. Lactic acid is 0.2. - chest x-ray revealed pneumonia - negative for COVID on rapid swab - therefore at this time patient was ordered Levaquin for possible hospital- acquired pneumonia/aspiration pneumonia. He will also receive 50 g of dextrose, 10 mg of IV insulin, 50meq of bicarb, 30 gm of Kayexalate and 5 mg of albuterol breathing treatment for the patient's pneumonia/sepsis, hyperkalemia - still awaiting CTA of chest for PE and CT scan of abdomen pelvis with IV contrast Time: 11:53 Reevaluation #2: - CT scan of chest for PE negative for PE although revealed m ultilobar pneumonia and small pericardial effusion - CT scan of abdomen and pelvis with IV contrast negative for any acute processes - discussed this case with Dr. Driver who will be admitting at this time. Patient understands agrees with this plan. - Focus Exam done at this time Time: 13:00 Reevaluation #3: - Patient became hypotensive therefore another L of IV fluids bolus was ordered and Dr. donny Doll the committee member was consulted he came down and did a bedside echo and revealed that the patient has a ejection fraction no pericardial effusion on his bedside echo - therefore he recommended giving 125 mL of lactated Ringer's an hour along with starting the patient on pressors of Phenylephrine per protocol. - he reports that he does not believe the patient needs to go to the ICU at this point to start this then re-evaluate although patient cannot go to the intermediate care floor while on pressors therefore will continue to monitor. - Focus Exam done at this time Time: 15:00 Consultations Consultation #1: - patient will be admitted to Dr. Phillips Time: 18:16 MDM - Abdominal Pain Medical Records Attestation: I reviewed the patient's medical records. Lab Data Attestation: I reviewed the patient's lab results. Result diagrams: 05/02/21 11:07 05/02/21 11:07 Labs: Lab Results 05/02/21 05/02/21 05/02/21 Range/Units 10:23 11:07 11:07 WBC 5.9 (4.8-10.8) X10*3/uL RBC 5.01 (4.60-5.80) X10*6/uL Hgb 9.8 L (14.0-18.0) g/dl Hct 34.6 L (42-52) % MCV 69.1 L (80-98) fL MCH 19.6 L (27.0-33.0) pg MCHC 28.3 L (31.0-36.0) g/dl RDW 20.5 H (11.0-16.0) % Plt Count 346 (160-400) X10*3/uL MPV 9.9 (9.4-12.4) fL Immature Gran % (Auto) 0.2 (0.0-0.4) % Neut % (Auto) 86.8 H (45-73) % Lymph % (Auto) 5.4 L (20-40) % [place] % (Auto) 7.3 (2-11) % Eos % (Auto) 0.0 (0-4) % Baso % (Auto) 0.3 (0-2) % Lymph # (Auto) 0.3 L (1.2-4.9) X10*3/uL [place] # (Auto) 0.4 (0.1-1.2) X10*3/uL Eos # (Auto) 0.0 (0.0-0.4) X10*3/uL Baso # (Auto) 0.0 (0.0-0.2) X10*3/uL Abs Immat Gran (auto) 0.01 (0.00-0.03) X10*3/uL Absolute Neuts (auto) 5.2 (2.0-8.3) X10*3/uL Absolute Nucleated RBC 0.000 (0.0-0.012) X10*3/uL Nucleated RBC % (auto) 0.0 (0.0-0.2) /100WBC Hold Purple Top PT 12.8 (10.8-13.0) SEC INR 1.1 (0.9-1.1) Hold Blue Top SEE NOTE VBG pH (7.32-7.43) VBG pCO2 mmHg VBG pO2 mmHg VBG HCO3 (22-26) mmol/L VBG O2 Saturation % VBG Base Excess mmol/L Sodium (135-145) mmol/L Potassium (3.3-5.1) mmol/L Chloride (96-108) mmol/L Carbon Dioxide (22-29) mmol/L Anion Gap (12-20) BUN (9-16) mg/dL Creatinine (0.5-1.4) mg/dL Estim Creat Clear Calc Estimated GFR Random Glucose (60-115) mg/dL Lactic Acid (0.5-2.0) mmol/L Calcium (8.4-10.2) mg/dL Magnesium (1.6-2.6) mg/dL Ferritin (20-250) ng/mL Total Bilirubin (0.0-1.0) mg/dL AST (5-37) U/L ALT (0-40) U/L Alkaline Phosphatase (39-117) U/L Lactate Dehydrogenase (118-273) U/L Troponin I High Sens (<3.5-35.0) ng/L C-Reactive Protein (< or = 0.50) mg/dL B-Natriuretic Peptide (<100) pg/mL Total Protein (6.5-8.0) g/dL Albumin (3.5-5.0) g/dL Lipase (8-78) U/L Procalcitonin ng/mL Ethyl Alcohol mg/dL Respiratory Panel Chatterjee Adenovirus (Rapid PCR) (Not Detect.) B.pert (TEM-PCR) (Not Detect.) B.parapertussis DNA PCR (Not Detect.) C. pneumoniae DNA (PCR) (Not Detect.) Coronavirus OC43 (PCR) (Not Detect.) Coronavirus HKU1 (PCR) (Not Detect.) Coronavirus 229E (PCR) (Not Detect.) COVID-19 (ANDERS) Negative (Negative) COVID-19 Clin Com See Note Coronavirus NL63 (PCR) (Not Detect.) Human Metapneumovir PCR (Not Detect.) Influenza A (RT-PCR) (Not Detect.) Influenza B (RT-PCR) (Not Detect.) M. pneumoniae (PCR) (Not Detect.) Parainfluenza 1 (PCR) (Not Detect.) Parainfluenza 2 (PCR) (Not Detect.) Parainfluenza 3 (PCR) (Not Detect.) Parainfluenza 4 (PCR) (Not Detect.) RSV (PCR) (Not Detect.) Entero/Rhino (PCR) (Not Detect.) SARS-CoV-2 RNA (RT-PCR) (Not Detect.) 05/02/21 05/02/21 05/02/21 Range/Units 11:07 11:07 11:07 WBC (4.8-10.8) X10*3/uL RBC (4.60-5.80) X10*6/uL Hgb (14.0-18.0) g/dl Hct (42-52) % MCV (80-98) fL MCH (27.0-33.0) pg MCHC (31.0-36.0) g/dl RDW (11.0-16.0) % Plt Count (160-400) X10*3/uL MPV (9.4-12.4) fL Immature Gran % (Auto) (0.0-0.4) % Neut % (Auto) (45-73) % Lymph % (Auto) (20-40) % [place] % (Auto) (2-11) % Eos % (Auto) (0-4) % Baso % (Auto) (0-2) % Lymph # (Auto) (1.2-4.9) X10*3/uL [place] # (Auto) (0.1-1.2) X10*3/uL Eos # (Auto) (0.0-0.4) X10*3/uL Baso # (Auto) (0.0-0.2) X10*3/uL Abs Immat Gran (auto) (0.00-0.03) X10*3/uL Absolute Neuts (auto) (2.0-8.3) X10*3/uL Absolute Nucleated RBC (0.0-0.012) X10*3/uL Nucleated RBC % (auto) (0.0-0.2) /100WBC Hold Purple Top SEE NOTE PT (10.8-13.0) SEC INR (0.9-1.1) Hold Blue Top VBG pH (7.32-7.43) VBG pCO2 mmHg VBG pO2 mmHg VBG HCO3 (22-26) mmol/L VBG O2 Saturation % VBG Base Excess mmol/L Sodium 140 (135-145) mmol/L Potassium 6.6 H* D (3.3-5.1) mmol/L Chloride 108 (96-108) mmol/L Carbon Dioxide 24 (22-29) mmol/L Anion Gap 15 (12-20) BUN 33 H D (9-16) mg/dL Creatinine 1.49 H (0.5-1.4) mg/dL Estim Creat Clear Calc 48.0 Estimated GFR 49 Random Glucose 229 H D (60-115) mg/dL Lactic Acid (0.5-2.0) mmol/L Calcium 8.7 (8.4-10.2) mg/dL Magnesium 1.4 L* (1.6-2.6) mg/dL Ferritin 7 L (20-250) ng/mL Total Bilirubin 0.4 (0.0-1.0) mg/dL AST 16 (5-37) U/L ALT 27 (0-40) U/L Alkaline Phosphatase 115 (39-117) U/L Lactate Dehydrogenase 186 (118-273) U/L Troponin I High Sens (<3.5-35.0) ng/L C-Reactive Protein 0.61 H (< or = 0.50) mg/dL B-Natriuretic Peptide (<100) pg/mL Total Protein 6.6 (6.5-8.0) g/dL Albumin 4.0 (3.5-5.0) g/dL Lipase (8-78) U/L Procalcitonin ng/mL Ethyl Alcohol mg/dL Respiratory Panel Chatterjee Adenovirus (Rapid PCR) (Not Detect.) B.pert (TEM-PCR) (Not Detect.) B.parapertussis DNA PCR (Not Detect.) C. pneumoniae DNA (PCR) (Not Detect.) Coronavirus OC43 (PCR) (Not Detect.) Coronavirus HKU1 (PCR) (Not Detect.) Coronavirus 229E (PCR) (Not Detect.) COVID-19 (ANDERS) (Negative) COVID-19 Clin Com Coronavirus NL63 (PCR) (Not Detect.) Human Metapneumovir PCR (Not Detect.) Influenza A (RT-PCR) (Not Detect.) Influenza B (RT-PCR) (Not Detect.) M. pneumoniae (PCR) (Not Detect.) Parainfluenza 1 (PCR) (Not Detect.) Parainfluenza 2 (PCR) (Not Detect.) Parainfluenza 3 (PCR) (Not Detect.) Parainfluenza 4 (PCR) (Not Detect.) RSV (PCR) (Not Detect.) Entero/Rhino (PCR) (Not Detect.) SARS-CoV-2 RNA (RT-PCR) (Not Detect.) 05/02/21 05/02/21 05/02/21 Range/Units 11:07 11:07 11:07 WBC (4.8-10.8) X10*3/uL RBC (4.60-5.80) X10*6/uL Hgb (14.0-18.0) g/dl Hct (42-52) % MCV (80-98) fL MCH (27.0-33.0) pg MCHC (31.0-36.0) g/dl RDW (11.0-16.0) % Plt Count (160-400) X10*3/uL MPV (9.4-12.4) fL Immature Gran % (Auto) (0.0-0.4) % Neut % (Auto) (45-73) % Lymph % (Auto) (20-40) % [place] % (Auto) (2-11) % Eos % (Auto) (0-4) % Baso % (Auto) (0-2) % Lymph # (Auto) (1.2-4.9) X10*3/uL [place] # (Auto) (0.1-1.2) X10*3/uL Eos # (Auto) (0.0-0.4) X10*3/uL Baso # (Auto) (0.0-0.2) X10*3/uL Abs Immat Gran (auto) (0.00-0.03) X10*3/uL Absolute Neuts (auto) (2.0-8.3) X10*3/uL Absolute Nucleated RBC (0.0-0.012) X10*3/uL Nucleated RBC % (auto) (0.0-0.2) /100WBC Hold Purple Top PT (10.8-13.0) SEC INR (0.9-1.1) Hold Blue Top VBG pH (7.32-7.43) VBG pCO2 mmHg VBG pO2 mmHg VBG HCO3 (22-26) mmol/L VBG O2 Saturation % VBG Base Excess mmol/L Sodium (135-145) mmol/L Potassium (3.3-5.1) mmol/L Chloride (96-108) mmol/L Carbon Dioxide (22-29) mmol/L Anion Gap (12-20) BUN (9-16) mg/dL Creatinine (0.5-1.4) mg/dL Estim Creat Clear Calc Estimated GFR Random Glucose (60-115) mg/dL Lactic Acid 2.0 (0.5-2.0) mmol/L Calcium (8.4-10.2) mg/dL Magnesium (1.6-2.6) mg/dL Ferritin (20-250) ng/mL Total Bilirubin (0.0-1.0) mg/dL AST (5-37) U/L ALT (0-40) U/L Alkaline Phosphatase (39-117) U/L Lactate Dehydrogenase (118-273) U/L Troponin I High Sens 7.6 D (<3.5-35.0) ng/L C-Reactive Protein (< or = 0.50) mg/dL B-Natriuretic Peptide 35 (<100) pg/mL Total Protein (6.5-8.0) g/dL Albumin (3.5-5.0) g/dL Lipase (8-78) U/L Procalcitonin 0.51 ng/mL Ethyl Alcohol mg/dL Respiratory Panel Chatterjee Adenovirus (Rapid PCR) (Not Detect.) B.pert (TEM-PCR) (Not Detect.) B.parapertussis DNA PCR (Not Detect.) C. pneumoniae DNA (PCR) (Not Detect.) Coronavirus OC43 (PCR) (Not Detect.) Coronavirus HKU1 (PCR) (Not Detect.) Coronavirus 229E (PCR) (Not Detect.) COVID-19 (ANDERS) (Negative) COVID-19 Clin Com Coronavirus NL63 (PCR) (Not Detect.) Human Metapneumovir PCR (Not Detect.) Influenza A (RT-PCR) (Not Detect.) Influenza B (RT-PCR) (Not Detect.) M. pneumoniae (PCR) (Not Detect.) Parainfluenza 1 (PCR) (Not Detect.) Parainfluenza 2 (PCR) (Not Detect.) Parainfluenza 3 (PCR) (Not Detect.) Parainfluenza 4 (PCR) (Not Detect.) RSV (PCR) (Not Detect.) Entero/Rhino (PCR) (Not Detect.) SARS-CoV-2 RNA (RT-PCR) (Not Detect.) 05/02/21 05/02/21 05/02/21 Range/Units 11:08 11:08 11:49 WBC (4.8-10.8) X10*3/uL RBC (4.60-5.80) X10*6/uL Hgb (14.0-18.0) g/dl Hct (42-52) % MCV (80-98) fL MCH (27.0-33.0) pg MCHC (31.0-36.0) g/dl RDW (11.0-16.0) % Plt Count (160-400) X10*3/uL MPV (9.4-12.4) fL Immature Gran % (Auto) (0.0-0.4) % Neut % (Auto) (45-73) % Lymph % (Auto) (20-40) % [place] % (Auto) (2-11) % Eos % (Auto) (0-4) % Baso % (Auto) (0-2) % Lymph # (Auto) (1.2-4.9) X10*3/uL [place] # (Auto) (0.1-1.2) X10*3/uL Eos # (Auto) (0.0-0.4) X10*3/uL Baso # (Auto) (0.0-0.2) X10*3/uL Abs Immat Gran (auto) (0.00-0.03) X10*3/uL Absolute Neuts (auto) (2.0-8.3) X10*3/uL Absolute Nucleated RBC (0.0-0.012) X10*3/uL Nucleated RBC % (auto) (0.0-0.2) /100WBC Hold Purple Top PT (10.8-13.0) SEC INR (0.9-1.1) Hold Blue Top VBG pH (7.32-7.43) VBG pCO2 mmHg VBG pO2 mmHg VBG HCO3 (22-26) mmol/L VBG O2 Saturation % VBG Base Excess mmol/L Sodium (135-145) mmol/L Potassium (3.3-5.1) mmol/L Chloride (96-108) mmol/L Carbon Dioxide (22-29) mmol/L Anion Gap (12-20) BUN (9-16) mg/dL Creatinine (0.5-1.4) mg/dL Estim Creat Clear Calc Estimated GFR Random Glucose (60-115) mg/dL Lactic Acid (0.5-2.0) mmol/L Calcium (8.4-10.2) mg/dL Magnesium (1.6-2.6) mg/dL Ferritin (20-250) ng/mL Total Bilirubin (0.0-1.0) mg/dL AST (5-37) U/L ALT (0-40) U/L Alkaline Phosphatase (39-117) U/L Lactate Dehydrogenase (118-273) U/L Troponin I High Sens (<3.5-35.0) ng/L C-Reactive Protein (< or = 0.50) mg/dL B-Natriuretic Peptide (<100) pg/mL Total Protein (6.5-8.0) g/dL Albumin (3.5-5.0) g/dL Lipase 24 (8-78) U/L Procalcitonin ng/mL Ethyl Alcohol < 10 mg/dL Respiratory Panel Chatterjee See Note Adenovirus (Rapid PCR) Not Detected (Not Detect.) B.pert (TEM-PCR) Not Detected (Not Detect.) B.parapertussis DNA PCR Not Detected (Not Detect.) C. pneumoniae DNA (PCR) Not Detected (Not Detect.) Coronavirus OC43 (PCR) Not Detected (Not Detect.) Coronavirus HKU1 (PCR) Not Detected (Not Detect.) Coronavirus 229E (PCR) Not Detected (Not Detect.) COVID-19 (ANDERS) (Negative) COVID-19 Clin Com Coronavirus NL63 (PCR) Not Detected (Not Detect.) Human Metapneumovir PCR Not Detected (Not Detect.) Influenza A (RT-PCR) Not Detected (Not Detect.) Influenza B (RT-PCR) Not Detected (Not Detect.) M. pneumoniae (PCR) Not Detected (Not Detect.) Parainfluenza 1 (PCR) Not Detected (Not Detect.) Parainfluenza 2 (PCR) Not Detected (Not Detect.) Parainfluenza 3 (PCR) Not Detected (Not Detect.) Parainfluenza 4 (PCR) Not Detected (Not Detect.) RSV (PCR) Not Detected (Not Detect.) Entero/Rhino (PCR) Not Detected (Not Detect.) SARS-CoV-2 RNA (RT-PCR) Not Detected (Not Detect.) 05/02/21 05/02/21 Range/Units 12:57 13:03 WBC (4.8-10.8) X10*3/uL RBC (4.60-5.80) X10*6/uL Hgb (14.0-18.0) g/dl Hct (42-52) % MCV (80-98) fL MCH (27.0-33.0) pg MCHC (31.0-36.0) g/dl RDW (11.0-16.0) % Plt Count (160-400) X10*3/uL MPV (9.4-12.4) fL Immature Gran % (Auto) (0.0-0.4) % Neut % (Auto) (45-73) % Lymph % (Auto) (20-40) % [place] % (Auto) (2-11) % Eos % (Auto) (0-4) % Baso % (Auto) (0-2) % Lymph # (Auto) (1.2-4.9) X10*3/uL [place] # (Auto) (0.1-1.2) X10*3/uL Eos # (Auto) (0.0-0.4) X10*3/uL Baso # (Auto) (0.0-0.2) X10*3/uL Abs Immat Gran (auto) (0.00-0.03) X10*3/uL Absolute Neuts (auto) (2.0-8.3) X10*3/uL Absolute Nucleated RBC (0.0-0.012) X10*3/uL Nucleated RBC % (auto) (0.0-0.2) /100WBC Hold Purple Top PT (10.8-13.0) SEC INR (0.9-1.1) Hold Blue Top VBG pH 7.53 H (7.32-7.43) VBG pCO2 23 mmHg VBG pO2 237 mmHg VBG HCO3 19 L (22-26) mmol/L VBG O2 Saturation 98.0 % VBG Base Excess -2.0 mmol/L Sodium (135-145) mmol/L Potassium (3.3-5.1) mmol/L Chloride (96-108) mmol/L Carbon Dioxide (22-29) mmol/L Anion Gap (12-20) BUN (9-16) mg/dL Creatinine (0.5-1.4) mg/dL Estim Creat Clear Calc Estimated GFR Random Glucose (60-115) mg/dL Lactic Acid (0.5-2.0) mmol/L Calcium (8.4-10.2) mg/dL Magnesium (1.6-2.6) mg/dL Ferritin (20-250) ng/mL Total Bilirubin (0.0-1.0) mg/dL AST (5-37) U/L ALT (0-40) U/L Alkaline Phosphatase (39-117) U/L Lactate Dehydrogenase (118-273) U/L Troponin I High Sens 8.9 (<3.5-35.0) ng/L C-Reactive Protein (< or = 0.50) mg/dL B-Natriuretic Peptide (<100) pg/mL Total Protein (6.5-8.0) g/dL Albumin (3.5-5.0) g/dL Lipase (8-78) U/L Procalcitonin ng/mL Ethyl Alcohol mg/dL Respiratory Panel Chatterjee Adenovirus (Rapid PCR) (Not Detect.) B.pert (TEM-PCR) (Not Detect.) B.parapertussis DNA PCR (Not Detect.) C. pneumoniae DNA (PCR) (Not Detect.) Coronavirus OC43 (PCR) (Not Detect.) Coronavirus HKU1 (PCR) (Not Detect.) Coronavirus 229E (PCR) (Not Detect.) COVID-19 (ANDERS) (Negative) COVID-19 Clin Com Coronavirus NL63 (PCR) (Not Detect.) Human Metapneumovir PCR (Not Detect.) Influenza A (RT-PCR) (Not Detect.) Influenza B (RT-PCR) (Not Detect.) M. pneumoniae (PCR) (Not Detect.) Parainfluenza 1 (PCR) (Not Detect.) Parainfluenza 2 (PCR) (Not Detect.) Parainfluenza 3 (PCR) (Not Detect.) Parainfluenza 4 (PCR) (Not Detect.) RSV (PCR) (Not Detect.) Entero/Rhino (PCR) (Not Detect.) SARS-CoV-2 RNA (RT-PCR) (Not Detect.) Imaging Data Chest x-ray: Attestation: I personally reviewed and interpreted this imaging study as follows: Radiologist's impression: FINDINGS: Compared with the prior chest radiograph which was normal, there has been a dramatic change and there is now diffuse infiltrate throughout the right lung consistent with diffuse pneumonia. The left lung is clear. Some old healed right-sided rib fractures are present. No pleural effusions are seen. XR/XR chest 2V IMPRESSION: Diffuse right lung airspace disease consistent with pneumonia ECG Data Attestation: I personally reviewed and interpreted this ECG as follows: ECG interpretation date: 05/02/21 ECG interpretation time: 10:59 Interpretation: Sinus tachycardia with ventricular rate of 132 with a normal [place] interval normal QRS duration normal QT/QTC interval. No acute ischemic changes are noted. Similar when compared to prior EKG on 04/25/2021 Critical Care Time Critical Care Time Critical Care Time: Yes Total Critical Care Time: 60 Attestation: I personally attest to this time spent taking care of the patient Discharge Plan Discharge Clinical Impression: Pneumonia, Sepsis, Hyperkalemia, Acute kidney injury, Dehydration, Low blood magnesium level Patient Disposition: Admitted As Inpatient [facility] Past Medical History Attestation statement: The following information was validated with the patient. Medical History COPD (chronic obstructive pulmonary disease) Diabetes Dysphagia alcohol syndrome HTN (hypertension) Hyperlipidemia Paranoia Social History Social History Household Members: Other Housing: Other Unable to assess alcohol history related to: Unknown Alcohol intake: never Patient Tobacco Use Status: Current everyday Tobacco user Use of substances other than those prescribed or required for medical reasons: No Substance Use Type: Crack/Cocaine Advance Directives: No Advance Directives Information Provided: No service: No Current occupational status: disabled
[2021-05-02 11:48] LABS: Ethanol < 10 mg/dL
[2021-05-02 11:49] LABS: Magnesium 1.4 mg/dL (1.6-2.6)
[2021-05-02 11:50] LABS: Alanine Aminotransferase 27 U/L (0-40); Alkaline Phosphatase 115 U/L (39-117); Anion Gap 15 (12-20); Aspartate Amino Transferase 16 U/L (5-37); Bilirubin Total 0.4 mg/dL (0.0-1.0); Blood Urea Nitrogen 33 mg/dL (9-16); Calcium 8.7 mg/dL (8.4-10.2); Carbon Dioxide 24 mmol/L (22-29); Chloride 108 mmol/L (96-108); Estimated Glomerular Filt Rate 49; Glucose Random 229 mg/dL (60-115); Potassium 6.6 mmol/L (3.3-5.1); Sodium 140 mmol/L (135-145); Total Protein 6.6 g/dL (6.5-8.0)
[2021-05-02 12:01] LABS: Adenovirus PCR Not Detected (Not Detect.); Bordetella parapertussis PCR Not Detected (Not Detect.); Bordetella pertussis PCR Not Detected (Not Detect.); Chlamydia pneumoniae PCR Not Detected (Not Detect.); Coronavirus 229E PCR Not Detected (Not Detect.); Coronavirus HKU1 PCR Not Detected (Not Detect.); Coronavirus NL63 PCR Not Detected (Not Detect.); Coronavirus OC43 PCR Not Detected (Not Detect.); Human metapneumovirus PCR Not Detected (Not Detect.); Influenza A PCR Not Detected (Not Detect.); Influenza B PCR Not Detected (Not Detect.); Mycoplasma pneumoniae PCR Not Detected (Not Detect.); Parainfluenza 1 PCR Not Detected (Not Detect.); Parainfluenza 2 PCR Not Detected (Not Detect.); Parainfluenza 3 PCR Not Detected (Not Detect.); Parainfluenza 4 PCR Not Detected (Not Detect.); RSV PCR Not Detected (Not Detect.); Rhino/Enterovirus PCR Not Detected (Not Detect.); SARS-CoV-2 PCR Not Detected (Not Detect.)
[2021-05-02 12:02] LABS: INTERNATIONAL NORM RATIO 1.1 (0.9-1.1); Prothrombin Time 12.8 SEC (10.8-13.0)
[2021-05-02] MEDS: Albuterol Sulfate (0.083%) 2.5 MG/3 ML VIAL.NEB 5 MG INHALE (12:13)
[2021-05-02] MEDS: iohexoL 350 MG/ML 100 ML INFUS..BTL IV (12:16)
[2021-05-02 12:20] LABS: C Reactive Protein 0.61 mg/dL (< or = 0.50); Lactate Dehydrogenase 186 U/L (118-273)
[2021-05-02] MEDS: levoFLOXacin/D5W 750 MG/150 ML PIGGYBACK 100 MG IV (12:20)
[2021-05-02 12:22] LABS: Troponin-I High Sensitivity 7.6 ng/L (<3.5-35.0)
[2021-05-02 12:42] LABS: Ferritin 7 ng/mL (20-250)
[2021-05-02 13:06] LABS: Procalcitonin 0.51 ng/mL
[2021-05-02 13:10] LABS: Venous Blood Gas Refer to POC result
[2021-05-02 13:10] LABS: VBG HCO3 19 mmol/L (22-26); VBG pCO2 23 mmHg; VBG pH 7.53 (7.32-7.43); VBG pO2 237 mmHg
[2021-05-02] MEDS: Sodium Bicarbonate 8.4% 50 MEQ/50 ML VIAL IVPUSH (13:26)
[2021-05-02] MEDS: Insulin Regular, Human 100 UNIT/ML 3 ML VIAL 10 UNIT IVPUSH ×2 (13:30→21:42)
[2021-05-02] MEDS: Sodium Polystyrene Sulfon/Sorb 15 GM/60 ML ORAL.SUSP 30 GM PO (13:32)
[2021-05-02 13:41] LABS: Troponin-I High Sensitivity 8.9 ng/L (<3.5-35.0)
--- NOTE | 2021-05-02 14:31 | PC.NURSE ---
Pt's BP begining to drop a 1400 after completion of IVF orders. SBP now in low 80s/high 70s PA Meryl aware. 1 additional liter of NS ordered/started. PT is alert and oriented at this time continuing to request lunch.
[2021-05-02] MEDS: Magnesium Sulfate/H2O 2 GM/50 ML PIGGYBACK IV (14:34)
[2021-05-02] MEDS: 0.9 % Sodium Chloride 1,000 ML 999 ML IVCONT (14:35)
--- NOTE | 2021-05-02 15:33 | PC.NURSE ---
BP remains low after additional IVF. PA aware. Cost Clerk consulted.
[2021-05-02] MEDS: Phenylephrine HCL 20 MG in 0.9 % Sodium Chloride 250 ML 25.72 MG IVCONT (16:31)
--- NOTE | 2021-05-02 16:49 | PM.CCHP ---
History of Present Illness Date of Service: 05/02/21 Chief Complaint: Dyspnea/hypotension 55-year-old male in a alf due to mental compromise possible underlying schizoaffective on combination of atypical antipsychotics and SSRI agents with chronic aspiration for which she is on a pureed diet and he has an underlying insulin-requiring type 2 diabetic with an element of COPD recently in the hospital because of dehydration with acute kidney insufficiency that resolved no antibiotics were necessary presents now with the weakness apparently some diarrhea cough and dyspnea and by CT scan has an extensive right-sided pneumonia in all probability aspiration because he does not cooperate with the pureed diet and was hypoxic now compensated on nasal cannula but hypotensive despite 2.5 L of IV fluid and a distended IVC indicating that he has at least euvolemic with underlying normal LV and RV function and no primary valve or pericardial disease so at this point he requires pressors for his blood pressure in the high 70s and bill temporized with Chang-Synephrine and continue maintenance IV therapy but given the septic presentation with lactate pending we will continue this mode of therapy and pressors until he is able to be weaned from pressors and then transferable to the floor The pneumonia at and now has a potential element of hospital-acquired and therefore treatment will be combination of Zosyn and Levaquin Review of Systems Review of Systems: Yes Unobtainable due to mental status PMFSH Past Medical History Medical History COPD (chronic obstructive pulmonary disease) Diabetes Dysphagia alcohol syndrome HTN (hypertension) Hyperlipidemia Paranoia Social History Social History Household Members: Other Housing: Other Unable to assess alcohol history related to: Unknown Alcohol intake: never Patient Tobacco Use Status: Current everyday Tobacco user Use of substances other than those prescribed or required for medical reasons: No Substance Use Type: Crack/Cocaine Advance Directives: No Advance Directives Information Provided: No service: No Current occupational status: disabled Meds Allergies Allergy/AdvReac Type Severity Reaction Status Date / Time No Known Allergies Allergy Verified 04/25/21 17:24 Active Medications: Current Medications Generic Name Dose Route Start Last Admin Trade Name Freq PRN Reason Stop Dose Admin Albuterol/Ipratropium 3 ml 05/02/21 20:00 Albuterol/Iprat 2.5/0.5mg 3 Ml Ampul.Neb INHALE RQ6H WHILE AWAKE [facility] Clozapine 100 mg 05/02/21 21:00 Clozapine 100 Mg Tablet PO BEDTIME [facility] Lactated Ringer's 1,000 mls @ 125 mls/hr 05/02/21 16:15 Lr IVCONT .Q8H [facility] Phenylephrine HCl 20 mg/ 252 mls @ 0 mls/hr 05/02/21 16:15 05/02/21 16:31 Sodium Chloride IVCONT 0.5 mcg/kg/min .Q0M ELISSA 25.72 mls/hr Administration Protocol Per Protocol Sodium Chloride 1,000 mls @ 999 mls/hr 05/02/21 16:15 05/02/21 16:37 Ns IVCONT 05/02/21 17:15 Not Given .Q1H1M [facility] Piperacillin Sod/Tazobactam 100 mls @ 200 mls/hr 05/02/21 16:45 Sod 4.5 gm/ Sodium Chloride IV Q6H [facility] Insulin Glargine 10 unit 05/02/21 17:00 Insulin Glargine,Hum.Rec.Anlog 100 Unit/Ml 10 Ml Vial SUBCUT BID@0800,1700 [facility] Insulin Human Lispro 0 unit 05/02/21 21:00 Insulin Lispro 100 Unit/Ml 3 Ml Vial SUBCUT 05/03/21 16:36 QIDACHS [facility] Protocol Non-Formulary Medication 40 mg 05/02/21 21:00 Pantoprazole [Protonix] PO BID [facility] Paroxetine HCl 40 mg 05/03/21 09:00 Paroxetine Hcl 40 Mg Tablet PO DAILY [facility] Perphenazine 8 mg 05/02/21 21:00 Perphenazine 8 Mg Tablet PO BEDTIME [facility] Pharmacy Consult 1 each 05/02/21 14:29 Consult Rx Perform Med Rec MISCELLANE ONCE PRN Consult order Home Medications Medication Instructions Recorded Confirmed Last Taken Type benztropine 1 tab PO BID 10/07/20 05/02/21 05/02/21 History budesonide 1 vial INHALATION BID 10/07/20 05/02/21 05/02/21 History clozapine 3 tab PO BEDTIME 10/07/20 05/02/21 05/01/21 History metformin 1 tab PO BID@0800,1700 10/07/20 05/02/21 05/02/21 History perphenazine 8 mg PO BEDTIME 10/07/20 05/02/21 05/01/21 History simvastatin 40 mg PO BEDTIME 10/07/20 05/02/21 05/01/21 History Invega Sustenna 156 mg IM Q28D 04/25/21 05/02/21 04/15/21 History Lantus Solostar U-100 Insulin 40 unit SUBCUT DAILY 04/25/21 05/02/21 05/02/21 History acetaminophen [Tylenol] 650 mg PO Q6H PRN 04/25/21 05/02/21 Unknown History albuterol sulfate [ProAir HFA] 2 inh INHALATION QID PRN 04/25/21 05/02/21 Unknown History ferrous sulfate 324 mg PO BID 04/25/21 05/02/21 05/02/21 History ipratropium-albuterol 3 ml INHALATION Q6H PRN 04/25/21 05/02/21 Unknown History magnesium 250 mg PO BID 04/25/21 05/02/21 05/02/21 History paroxetine HCl 40 mg PO DAILY 04/25/21 05/02/21 05/02/21 History perphenazine 16 mg PO BID 04/25/21 05/02/21 05/02/21 History Physical Exam Vital Signs: Vital Signs: Last Vital Signs Temp 99.5 F 05/02/21 15:24 Pulse 102 H 05/02/21 15:33 Resp 18 05/02/21 15:24 BP 76/41 L 05/02/21 15:33 Pulse Ox 99 05/02/21 15:33 Oxygen Flow Rate 2 05/02/21 10:12 Body Mass Index 25.7 Awake and alert and currently eating without witnessed coughing Bedside echo revealing normal LV and RV function and no primary valve or pericardial disease and IVC distended but with normal inspiratory collapse at least euvolemic Abdomen benign nontender with good bowel sounds no organomegaly Chest with right-sided rales but no other adventitious sounds No peripheral edema skin intact Results Labs CBC and Chem 7: 05/02/21 11:07 05/02/21 11:07 Labs: Laboratory Results - last 24 hr 05/02/21 05/02/21 05/02/21 10:23 11:07 11:07 MCV 69.1 L MCH 19.6 L MCHC 28.3 L RDW 20.5 H Plt Count 346 MPV 9.9 Immature Gran % (Auto) 0.2 Neut % (Auto) 86.8 H Lymph % (Auto) 5.4 L Johnston % (Auto) 7.3 Eos % (Auto) 0.0 Baso % (Auto) 0.3 Lymph # (Auto) 0.3 L Johnston # (Auto) 0.4 Eos # (Auto) 0.0 Baso # (Auto) 0.0 Abs Immat Gran (auto) 0.01 Absolute Neuts (auto) 5.2 Absolute Nucleated RBC 0.000 Nucleated RBC % (auto) 0.0 Hold Purple Top PT 12.8 INR 1.1 Hold Blue Top SEE NOTE VBG pH VBG pCO2 VBG pO2 VBG HCO3 VBG O2 Saturation VBG Base Excess Anion Gap Estim Creat Clear Calc Estimated GFR Random Glucose Lactic Acid Calcium Magnesium Ferritin Total Bilirubin AST ALT Alkaline Phosphatase Lactate Dehydrogenase Troponin I High Sens C-Reactive Protein B-Natriuretic Peptide Total Protein Albumin Lipase Procalcitonin Ethyl Alcohol Respiratory Panel Chatterjee Adenovirus (Rapid PCR) B.pert (TEM-PCR) B.parapertussis DNA PCR C. pneumoniae DNA (PCR) Coronavirus OC43 (PCR) Coronavirus HKU1 (PCR) Coronavirus 229E (PCR) COVID-19 (ANDERS) Negative COVID-19 Clin Com See Note Coronavirus NL63 (PCR) Human Metapneumovir PCR Influenza A (RT-PCR) Influenza B (RT-PCR) M. pneumoniae (PCR) Parainfluenza 1 (PCR) Parainfluenza 2 (PCR) Parainfluenza 3 (PCR) Parainfluenza 4 (PCR) RSV (PCR) Entero/Rhino (PCR) SARS-CoV-2 RNA (RT-PCR) 05/02/21 05/02/21 05/02/21 11:07 11:07 11:07 MCV MCH MCHC RDW Plt Count MPV Immature Gran % (Auto) Neut % (Auto) Lymph % (Auto) Johnston % (Auto) Eos % (Auto) Baso % (Auto) Lymph # (Auto) Johnston # (Auto) Eos # (Auto) Baso # (Auto) Abs Immat Gran (auto) Absolute Neuts (auto) Absolute Nucleated RBC Nucleated RBC % (auto) Hold Purple Top SEE NOTE PT INR Hold Blue Top VBG pH VBG pCO2 VBG pO2 VBG HCO3 VBG O2 Saturation VBG Base Excess Anion Gap 15 Estim Creat Clear Calc 48.0 Estimated GFR 49 Random Glucose 229 H D Lactic Acid Calcium 8.7 Magnesium 1.4 L* Ferritin 7 L Total Bilirubin 0.4 AST 16 ALT 27 Alkaline Phosphatase 115 Lactate Dehydrogenase 186 Troponin I High Sens C-Reactive Protein 0.61 H B-Natriuretic Peptide Total Protein 6.6 Albumin 4.0 Lipase Procalcitonin Ethyl Alcohol Respiratory Panel Chatterjee Adenovirus (Rapid PCR) B.pert (TEM-PCR) B.parapertussis DNA PCR C. pneumoniae DNA (PCR) Coronavirus OC43 (PCR) Coronavirus HKU1 (PCR) Coronavirus 229E (PCR) COVID-19 (ANDERS) COVID-19 Clin Com Coronavirus NL63 (PCR) Human Metapneumovir PCR Influenza A (RT-PCR) Influenza B (RT-PCR) M. pneumoniae (PCR) Parainfluenza 1 (PCR) Parainfluenza 2 (PCR) Parainfluenza 3 (PCR) Parainfluenza 4 (PCR) RSV (PCR) Entero/Rhino (PCR) SARS-CoV-2 RNA (RT-PCR) 05/02/21 05/02/21 05/02/21 11:07 11:07 11:07 MCV MCH MCHC RDW Plt Count MPV Immature Gran % (Auto) Neut % (Auto) Lymph % (Auto) Johnston % (Auto) Eos % (Auto) Baso % (Auto) Lymph # (Auto) Johnston # (Auto) Eos # (Auto) Baso # (Auto) Abs Immat Gran (auto) Absolute Neuts (auto) Absolute Nucleated RBC Nucleated RBC % (auto) Hold Purple Top PT INR Hold Blue Top VBG pH VBG pCO2 VBG pO2 VBG HCO3 VBG O2 Saturation VBG Base Excess Anion Gap Estim Creat Clear Calc Estimated GFR Random Glucose Lactic Acid 2.0 Calcium Magnesium Ferritin Total Bilirubin AST ALT Alkaline Phosphatase Lactate Dehydrogenase Troponin I High Sens 7.6 D C-Reactive Protein B-Natriuretic Peptide 35 Total Protein Albumin Lipase Procalcitonin 0.51 Ethyl Alcohol Respiratory Panel Chatterjee Adenovirus (Rapid PCR) B.pert (TEM-PCR) B.parapertussis DNA PCR C. pneumoniae DNA (PCR) Coronavirus OC43 (PCR) Coronavirus HKU1 (PCR) Coronavirus 229E (PCR) COVID-19 (ANDERS) COVID-19 Clin Com Coronavirus NL63 (PCR) Human Metapneumovir PCR Influenza A (RT-PCR) Influenza B (RT-PCR) M. pneumoniae (PCR) Parainfluenza 1 (PCR) Parainfluenza 2 (PCR) Parainfluenza 3 (PCR) Parainfluenza 4 (PCR) RSV (PCR) Entero/Rhino (PCR) SARS-CoV-2 RNA (RT-PCR) 05/02/21 05/02/21 05/02/21 11:08 11:08 11:49 MCV MCH MCHC RDW Plt Count MPV Immature Gran % (Auto) Neut % (Auto) Lymph % (Auto) Johnston % (Auto) Eos % (Auto) Baso % (Auto) Lymph # (Auto) Johnston # (Auto) Eos # (Auto) Baso # (Auto) Abs Immat Gran (auto) Absolute Neuts (auto) Absolute Nucleated RBC Nucleated RBC % (auto) Hold Purple Top PT INR Hold Blue Top VBG pH VBG pCO2 VBG pO2 VBG HCO3 VBG O2 Saturation VBG Base Excess Anion Gap Estim Creat Clear Calc Estimated GFR Random Glucose Lactic Acid Calcium Magnesium Ferritin Total Bilirubin AST ALT Alkaline Phosphatase Lactate Dehydrogenase Troponin I High Sens C-Reactive Protein B-Natriuretic Peptide Total Protein Albumin Lipase 24 Procalcitonin Ethyl Alcohol < 10 Respiratory Panel Chatterjee See Note Adenovirus (Rapid PCR) Not Detected B.pert (TEM-PCR) Not Detected B.parapertussis DNA PCR Not Detected C. pneumoniae DNA (PCR) Not Detected Coronavirus OC43 (PCR) Not Detected Coronavirus HKU1 (PCR) Not Detected Coronavirus 229E (PCR) Not Detected COVID-19 (ANDERS) COVID-19 Clin Com Coronavirus NL63 (PCR) Not Detected Human Metapneumovir PCR Not Detected Influenza A (RT-PCR) Not Detected Influenza B (RT-PCR) Not Detected M. pneumoniae (PCR) Not Detected Parainfluenza 1 (PCR) Not Detected Parainfluenza 2 (PCR) Not Detected Parainfluenza 3 (PCR) Not Detected Parainfluenza 4 (PCR) Not Detected RSV (PCR) Not Detected Entero/Rhino (PCR) Not Detected SARS-CoV-2 RNA (RT-PCR) Not Detected 05/02/21 05/02/21 12:57 13:03 MCV MCH MCHC RDW Plt Count MPV Immature Gran % (Auto) Neut % (Auto) Lymph % (Auto) Johnston % (Auto) Eos % (Auto) Baso % (Auto) Lymph # (Auto) Johnston # (Auto) Eos # (Auto) Baso # (Auto) Abs Immat Gran (auto) Absolute Neuts (auto) Absolute Nucleated RBC Nucleated RBC % (auto) Hold Purple Top PT INR Hold Blue Top VBG pH 7.53 H VBG pCO2 23 VBG pO2 237 VBG HCO3 19 L VBG O2 Saturation 98.0 VBG Base Excess -2.0 Anion Gap Estim Creat Clear Calc Estimated GFR Random Glucose Lactic Acid Calcium Magnesium Ferritin Total Bilirubin AST ALT Alkaline Phosphatase Lactate Dehydrogenase Troponin I High Sens 8.9 C-Reactive Protein B-Natriuretic Peptide Total Protein Albumin Lipase Procalcitonin Ethyl Alcohol Respiratory Panel Chatterjee Adenovirus (Rapid PCR) B.pert (TEM-PCR) B.parapertussis DNA PCR C. pneumoniae DNA (PCR) Coronavirus OC43 (PCR) Coronavirus HKU1 (PCR) Coronavirus 229E (PCR) COVID-19 (ANDERS) COVID-19 Clin Com Coronavirus NL63 (PCR) Human Metapneumovir PCR Influenza A (RT-PCR) Influenza B (RT-PCR) M. pneumoniae (PCR) Parainfluenza 1 (PCR) Parainfluenza 2 (PCR) Parainfluenza 3 (PCR) Parainfluenza 4 (PCR) RSV (PCR) Entero/Rhino (PCR) SARS-CoV-2 RNA (RT-PCR) Imaging Radiologist's Impressions: Impressions Chest X-Ray 05/02/21 10:42 IMPRESSION: Diffuse right lung airspace disease consistent with pneumonia Abdomen/Pelvis CT 05/02/21 11:06 IMPRESSION: 1. Left-sided hydronephrosis is present. This was not appreciated on the prior ultrasound from 04/25/2021 2. Mild splenomegaly. Chest CTA 05/02/21 11:06 IMPRESSION: No evidence of acute pulmonary artery embolus or thoracic aortic aneurysm or dissection. Diffuse right lung disease consistent with multilobar pneumonia. Small pericardial effusion. Aberrant right subclavian artery. VTE: negative Assessment and Plan (1) Pneumonia: Status: Acute (2) Sepsis: Status: Acute (3) Hyperkalemia: Status: Acute (4) Acute kidney injury: Status: Acute (5) Dehydration: Status: Acute (6) Low blood magnesium level: Status: Acute (7) Internal hemorrhoids: Status: Acute (8) Esophagitis with gastritis: Status: Acute (9) Paranoia: Status: Acute (10) Hyperlipidemia: Status: Acute (11) HTN (hypertension): Status: Acute (12) alcohol syndrome: Status: Acute (13) Dysphagia: Status: Acute (14) Diabetes: Status: Acute (15) COPD (chronic obstructive pulmonary disease): Status: Acute (16) Iron deficiency anemia: Qualifiers: Iron deficiency anemia type: chronic blood loss Qualified Code(s): D50.0 - Iron deficiency anemia secondary to blood loss (chronic) Status: Acute So the plan is to treat him as a nosocomial infection with Zosyn and Levaquin to start and of course maintain oxygenation and continue IV maintenance fluid and temporize with phenylephrine as a aid for maintenance of blood pressure greater than 100 systolic
[2021-05-02] MEDS: Lactated Ringers 1,000 ML 125 ML IVCONT ×2 (17:48→23:48)
[2021-05-02] MEDS: Piperacillin Sodium/Tazobactam 4.5 GM in 0.9 % Sodium Chloride 100 ML IV ×2 (18:03→21:58)
[2021-05-02] MEDS: Insulin Glargine,Hum.rec.anlog 100 UNIT/ML 10 ML VIAL 10 UNIT SUBCUT (18:46)
[2021-05-02 19:18] LABS: Glucose, Whole Blood 117 mg/dL (60-115)
--- NOTE | 2021-05-02 19:25 | MHC.CM.PN ---
IMM reviewed and signed 05/02/21 @1900. Pt is alert and orientated x2. Speech is difficult to understand, but is able to make his needs known. Pt states he signs his own medical/legal forms. Spoke with Leena from the [facility] and she verifies that pt is his own guardian and signs his own paperwork. Also verifies that pt does not have a HCP. When reviewing HCP with pt, pt states I make all my own decisions . Contact is [facility] at [facility] ([phone]). Pt tells CM he uses a nebulizer. Pt ate regualr diet and when CM spoke with [facility], she tells CM that patient is on a pureed diet with regular liquids. States that pt does not like the diet and will cheat whenever he can. Pt has been know to walk to local [employer] and eat food there. Charge nurse made aware of pt needing a pureed diet with regular liquids. Pt does not use CPAP or O2 at [facility]. Pt awaiting ICU bed. Expect d/c plan to return to [facility]. Transportation by [facility]. CM to follow for d/c needs.
[2021-05-02 19:49] LABS: Anion Gap 17 (12-20); Blood Urea Nitrogen 26 mg/dL (9-16); Calcium 7.7 mg/dL (8.4-10.2); Carbon Dioxide 18 mmol/L (22-29); Chloride 117 mmol/L (96-108); Creatinine Clr Calc Pharmacy 62.2; Estimated Glomerular Filt Rate > 60; Glucose Random 122 mg/dL (60-115); Potassium 6.2 mmol/L (3.3-5.1); Sodium 146 mmol/L (135-145)
[2021-05-02] MEDS: Albuterol/Iprat 2.5/0.5MG 3 ML AMPUL.NEB INHALE (20:59)
[2021-05-02 21:17] LABS: Glucose, Whole Blood 207 mg/dL (60-115)
[2021-05-02] MEDS: Calcium Gluconate/NaCl,Iso-Osm 1 GM/50 ML PLAST..BAG IV (21:42)
[2021-05-02] MEDS: Insulin Lispro 100 UNIT/ML 3 ML VIAL SUBCUT (21:42)
[2021-05-02] MEDS: Omeprazole 20 MG CAPSULE.DR PO (21:42)
[2021-05-02] MEDS: cloZAPine 100 MG TABLET PO (21:58)
[2021-05-02] MEDS: Perphenazine 8 MG TABLET PO (21:58)
[2021-05-02 22:21] LABS: CDIFF Ag Negative (Negative); CDIFF Internal ctrl Dots and bkg OK (V); CDiff Toxin Negative (Negative)
[2021-05-02 23:10] LABS: Anion Gap 13 (12-20); Blood Urea Nitrogen 22 mg/dL (9-16); Calcium 8.3 mg/dL (8.4-10.2); Carbon Dioxide 21 mmol/L (22-29); Chloride 114 mmol/L (96-108); Creatinine Clr Calc Pharmacy 66.2; Estimated Glomerular Filt Rate > 60; Glucose Random 125 mg/dL (60-115); Potassium 4.4 mmol/L (3.3-5.1); Sodium 144 mmol/L (135-145)
--- NOTE | 2021-05-02 23:23 | PC.NURSE ---
Shift eval 7p-11p - Patient admitted to ICU 260 @ approx 1940 - patient transferred / pivot from stretcher to bed 1 assist. Patient denied dizziness. Patient incont large amt of urine when arrival to ICU. Darcy care done, patient helped to bed. Patient alert and oriented x3 - forgetful / vague to situation. Patient repeat ask for coffee and asking diet to be changed from pureed to regular. Educated patient that we cant change diet since here for issues w/ swallowing and pneumonia. Critical result potassium still elevated from 6.6, critcal 6.2 taken at 194. Treated again for high potassium with d50, regular insulin, inhaler. Repeat lytes done - K down to 4.4. Weaned off Chang drip - see MAR titrations. - Geri PANIAGUA aware of updated potassium and drip being turned off. Patient pleasant, cooperative, used commode x 2 - large liquid brown stools, also voided in urinal. High fall risk precautions in place.
[2021-05-03] VITALS (20 sets, daily range): BP systolic 91–157; BP diastolic 46–81; PULSE 83–110; RESP 14–28; TEMP -13.4–37.8; O2SAT 92–99; BMI 26.9
[2021-05-03 03:08] LABS: Glucose, Whole Blood 42 mg/dL (60-115)
[2021-05-03] MEDS: Dextrose 5 % and Lactated Ring 1,000 ML 125 ML IVCONT ×4 (03:26→22:16)
[2021-05-03 03:35] LABS: Glucose, Whole Blood 162 mg/dL (60-115)
--- NOTE | 2021-05-03 04:22 | PC.NURSE ---
Addendum entered by Dionisio Casillas RN 05/03/21 05:22: current poc glucose= 130 d5lr 125 cc/hr infusing--phlebotomy here for am lab-work Original Note: CARE ASSUMED 23;15...AWAKE..ALERT..CARVER...STUTTERS AND/OR MUMBLES AT TIMES..VAGUE RESPONSES...ASKS CAN MY DIET CHANGE SO I CAN HAVE A HAMBURG? ..INSTRUCTED PATIENT DIETARY RESTRICTIONS D/T ASPIRATION ISSUES..RESPONDED OH WELL ...LR 125 CC/HR...REMAINS OFF NEOSYNEPHRINE...SBP 90'S...MAP 59-65..ICU PA PRESENT AND AWARE...BP GOAL SBP 90 OR >...VOIDING YELLOW URINE IN URINAL....DROWSY 3AM FOR F/U ASSEESSMENT...POC GLUCOSE=42..PA PRESENT...D50% 1 AMP IV GIVEN AND IV FLUIDS CHANGED TO D5LR 125 CC/HR....F/U POC GLUCOSE= 162 AND PATIENT ALERT AND MENTATING AT BASE-LINE
[2021-05-03 04:24] LABS: Glucose Urine UA 100 MG/DL (NEG); Leukocyte Esterase Urine NEG (NEG); Nitrite Urine NEG (NEG); Specific Gravity - Urine 1.015 (1.005-1.025); Urine Blood NEG (NEG); Urine Ketones NEG (NEG); Urine Protein NEG (NEG-TRACE)
[2021-05-03 04:26] LABS: Appearance Urine CLEAR; Color Urine STRAW; UACC Culture Trigger NO
[2021-05-03] MEDS: Piperacillin Sodium/Tazobactam 4.5 GM in 0.9 % Sodium Chloride 100 ML IV ×4 (05:04→22:16)
[2021-05-03 05:25] LABS: Glucose, Whole Blood 130 mg/dL (60-115)
[2021-05-03 05:41] LABS: MANUAL DIFF FLAG NO
[2021-05-03 05:48] LABS: Basophils Percent Auto 0.3 % (0-2); Hematocrit 23.6 % (42-52); Imm Gran Abs Auto 0.02 X10*3/uL (0.00-0.03); Imm Gran Pct Auto 0.3 % (0.0-0.4); Lymphocytes Absolute Auto 0.7 X10*3/uL (1.2-4.9); Mean Corpuscular HGB Conc 28.4 g/dl (31.0-36.0); Mean Corpuscular Hemoglobin 19.7 pg (27.0-33.0); Mean Corpuscular Volume 69.4 fL (80-98); Mean Platelet Volume 10.1 fL (9.4-12.4); Monocytes Absolute Auto 0.7 X10*3/uL (0.1-1.2); Monocytes Percent Auto 8.7 % (2-11); Neutrophils Absolute Auto 6.3 X10*3/uL (2.0-8.3); Neutrophils Percent Auto 81.7 % (45-73); Platelet Count 263 X10*3/uL (160-400); Red Cell Distribution Width 20.2 % (11.0-16.0); White Blood Count 7.7 X10*3/uL (4.8-10.8)
[2021-05-03 05:57] LABS: Hemoglobin 6.7 g/dl (14.0-18.0)
--- NOTE | 2021-05-03 06:14 | PC.NURSE ---
AM Hg=6.7 DR BARNHART AND ICU PA SENIA PRESENT AND AWARE..NO EXTERNAL SIGNS OF BLEEDING
[2021-05-03 06:25] LABS: Alanine Aminotransferase 16 U/L (0-40); Albumin Level 2.9 g/dL (3.5-5.0); Alkaline Phosphatase 77 U/L (39-117); Anion Gap 8 (12-20); Aspartate Amino Transferase 14 U/L (5-37); Bilirubin Direct 0.2 mg/dL (0.0-0.5); Bilirubin Total 0.3 mg/dL (0.0-1.0); Blood Urea Nitrogen 17 mg/dL (9-16); Carbon Dioxide 25 mmol/L (22-29); Chloride 113 mmol/L (96-108); Creatinine Clr Calc Pharmacy 71.5; Estimated Glomerular Filt Rate > 60; Glucose Random 136 mg/dL (60-115); Magnesium 1.6 mg/dL (1.6-2.6); Phosphorus 3.3 mg/dL (2.7-4.5); Potassium 4.2 mmol/L (3.3-5.1); Sodium 142 mmol/L (135-145); Total Protein 4.7 g/dL (6.5-8.0)
[2021-05-03 07:20] LABS: Glucose, Whole Blood 129 mg/dL (60-115)
[2021-05-03] MEDS: Insulin Glargine,Hum.rec.anlog 100 UNIT/ML 10 ML VIAL 10 UNIT SUBCUT ×2 (07:51→18:31)
[2021-05-03] MEDS: Magnesium Sulfate/D5W 1 GM/100 ML PIGGYBACK IV (07:51)
[2021-05-03 08:50] LABS: Lactate Dehydrogenase 136 U/L (118-273)
[2021-05-03] MEDS: Omeprazole 20 MG CAPSULE.DR PO (08:51)
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
[2021-05-03] MEDS: PARoxetine HCL 40 MG TABLET PO (08:54)
--- NOTE | 2021-05-03 10:13 | MHC.CLN ---
RE: CONSULT DEFERRED TO HOSPITALITY HOUSE SUPERVISOR EVAL FOR APPROPRIATE DIET CONSISTENCY DISCUSSED CASE WITH HOSPITALITY HOUSE SUPERVISOR MD VERBALLY REQUESTING HOSPITALITY HOUSE SUPERVISOR EVAL DURING ROUNDS WILL F/U NEEDED
[2021-05-03] MEDS: levoFLOXacin/D5W 750 MG/150 ML PIGGYBACK 100 MG IV (11:16)
[2021-05-03 11:23] LABS: Glucose, Whole Blood 208 mg/dL (60-115)
[2021-05-03] MEDS: Insulin Lispro 100 UNIT/ML 3 ML VIAL SUBCUT ×2 (11:25→16:59)
[2021-05-03 11:46] LABS: MANUAL DIFF FLAG NO
[2021-05-03 11:56] LABS: Basophils Percent Auto 0.1 % (0-2); Eosinophils Percent Auto 0.1 % (0-4); Hematocrit 24.4 % (42-52); Imm Gran Abs Auto 0.02 X10*3/uL (0.00-0.03); Imm Gran Pct Auto 0.3 % (0.0-0.4); Lymphocytes Absolute Auto 0.9 X10*3/uL (1.2-4.9); Lymphocytes Percent Auto 12.9 % (20-40); Mean Corpuscular HGB Conc 28.7 g/dl (31.0-36.0); Mean Corpuscular Hemoglobin 20.1 pg (27.0-33.0); Mean Corpuscular Volume 69.9 fL (80-98); Mean Platelet Volume 10.4 fL (9.4-12.4); Monocytes Absolute Auto 0.6 X10*3/uL (0.1-1.2); Monocytes Percent Auto 8.4 % (2-11); Neutrophils Absolute Auto 5.6 X10*3/uL (2.0-8.3); Neutrophils Percent Auto 78.2 % (45-73); Platelet Count 259 X10*3/uL (160-400); Red Blood Count 3.49 X10*6/uL (4.60-5.80); Red Cell Distribution Width 20.3 % (11.0-16.0); White Blood Count 7.1 X10*3/uL (4.8-10.8)
--- NOTE | 2021-05-03 12:28 | MHC.SL.SWA ---
Speech Pathologist Impression: Risk of Aspiration Oral Phase Dysphagia Risk of Aspiration Due to: History of Pneumonia Reduced Cognition Dysphasia Diet Status: No Change Liquid Consistency and Strategies for Safe Swallow: Liquid Intake Recommendation: Thin Liquid Intake Strategies: Small Sips Solid Food Consistency: Dietary Recommendations: Pureed (NDD1) Additional Modifications to Solid Foods: Oral Medication Intake: Crushed with Puree Compensatory Strategies and Precautions to be Taken for Safe Swallow: Sitting Upright (90 deg) Liquids from Cup Small Bites and Sips Alternate Liquids/Solids Rate of Ingestion Change Supervision While Eating and Drinking for Safe Swallow: Total Supervision (1:1) Foods to Avoid: Swallowing Recommended Treatments: Recommendation for Speech: Inpatient Speech Therapy Comment: HEATING AND REFRIGERATION INSPECTOR will continue to follow during hospitalization, as appropriate. Frequency/Duration: Date Range for Service Req: Timeline to reassess: Stencil Cutter Machine Clinican/Clinical Fellow: Yes: María Elena Mcghee M.A., CF-HEATING AND REFRIGERATION INSPECTOR Supervisory Statement: I have reviewed and agree with the student/clinical fellow's documentation: Speech Language Pathologist:
[2021-05-03] MEDS: Albuterol/Iprat 2.5/0.5MG 3 ML AMPUL.NEB INHALE ×2 (13:41→19:47)
[2021-05-03 16:12] LABS: Glucose, Whole Blood 159 mg/dL (60-115)
[2021-05-03] MEDS: cloZAPine 100 MG TABLET PO (20:36)
[2021-05-03 20:39] LABS: Glucose, Whole Blood 215 mg/dL (60-115)
[2021-05-04] VITALS (9 sets, daily range): BP systolic 113–140; BP diastolic 63–80; PULSE 81–94; RESP 15–22; TEMP 36–36.9; O2SAT 91–96
[2021-05-04] MEDS: Piperacillin Sodium/Tazobactam 4.5 GM in 0.9 % Sodium Chloride 100 ML IV ×4 (05:05→22:15)
[2021-05-04] MEDS: Dextrose 5 % and Lactated Ring 1,000 ML 125 ML IVCONT (06:14)
[2021-05-04 07:03] LABS: MANUAL DIFF FLAG NO
[2021-05-04 07:07] LABS: Basophils Percent Auto 0.5 % (0-2); Eosinophils Absolute Auto 0.2 X10*3/uL (0.0-0.4); Eosinophils Percent Auto 2.7 % (0-4); Hematocrit 24.2 % (42-52); Imm Gran Abs Auto 0.02 X10*3/uL (0.00-0.03); Imm Gran Pct Auto 0.4 % (0.0-0.4); Lymphocytes Percent Auto 18.3 % (20-40); Mean Corpuscular HGB Conc 28.9 g/dl (31.0-36.0); Mean Corpuscular Hemoglobin 20.1 pg (27.0-33.0); Mean Corpuscular Volume 69.3 fL (80-98); Mean Platelet Volume 10.5 fL (9.4-12.4); Monocytes Absolute Auto 0.6 X10*3/uL (0.1-1.2); Monocytes Percent Auto 11.7 % (2-11); Neutrophils Absolute Auto 3.6 X10*3/uL (2.0-8.3); Neutrophils Percent Auto 66.4 % (45-73); Platelet Count 263 X10*3/uL (160-400); Red Blood Count 3.49 X10*6/uL (4.60-5.80); Red Cell Distribution Width 20.4 % (11.0-16.0); White Blood Count 5.5 X10*3/uL (4.8-10.8)
[2021-05-04 07:17] LABS: INTERNATIONAL NORM RATIO 1.3 (0.9-1.1); Prothrombin Time 15.7 SEC (10.8-13.0)
[2021-05-04 07:19] LABS: Partial Thromboplastin Time 39.3 SEC (24.1-38.0)
[2021-05-04 07:44] LABS: Glucose, Whole Blood 273 mg/dL (60-115)
[2021-05-04] MEDS: Insulin Glargine,Hum.rec.anlog 100 UNIT/ML 10 ML VIAL 10 UNIT SUBCUT ×2 (07:47→17:04)
[2021-05-04 07:51] LABS: Alanine Aminotransferase 20 U/L (0-40); Albumin Level 3.1 g/dL (3.5-5.0); Alkaline Phosphatase 74 U/L (39-117); Anion Gap 11 (12-20); Aspartate Amino Transferase 14 U/L (5-37); Bilirubin Direct < 0.2 mg/dL (0.0-0.5); Bilirubin Total 0.4 mg/dL (0.0-1.0); Blood Urea Nitrogen 12 mg/dL (9-16); Carbon Dioxide 28 mmol/L (22-29); Chloride 104 mmol/L (96-108); Creatinine Clr Calc Pharmacy 69.6; Estimated Glomerular Filt Rate > 60; Glucose Random 302 mg/dL (60-115); Magnesium 1.2 mg/dL (1.6-2.6); Phosphorus 4.2 mg/dL (2.7-4.5); Potassium 4.6 mmol/L (3.3-5.1); Sodium 138 mmol/L (135-145); Total Protein 5.1 g/dL (6.5-8.0)
[2021-05-04 08:04] LABS: Calcium 8.8 mg/dL (8.4-10.2)
[2021-05-04] MEDS: Albuterol/Iprat 2.5/0.5MG 3 ML AMPUL.NEB INHALE ×3 (08:15→19:59)
[2021-05-04] MEDS: Magnesium Sulfate/H2O 2 GM/50 ML PIGGYBACK IV (09:12)
[2021-05-04 11:11] LABS: Glucose, Whole Blood 223 mg/dL (60-115)
[2021-05-04] MEDS: Insulin Lispro 100 UNIT/ML 3 ML VIAL SUBCUT ×3 (11:12→20:44)
--- NOTE | 2021-05-04 13:33 | P.PNIM_ITS ---
Subjective Subjective Date of Service: 05/04/21 Interval History: Patient sleeping comfortably, easily arousable denies pain, complaining of cough, no fevers no other acute issues overnight, seen by speech therapy they recommend to continue pureed and thin liquids [employer] no headache, no dizziness CVS no chest pain, no palpitation General no fever, no chills Physical Exam Vital Signs: Vital Signs: Last Vital Signs Temp 97.6 F 05/04/21 11:28 Pulse 87 05/04/21 11:28 Resp 18 05/04/21 11:28 BP 118/63 05/04/21 11:28 Pulse Ox 92 05/04/21 11:28 Oxygen Flow Rate 2 05/02/21 10:12 Body Mass Index 26.9 General no acute distress, resting comfortably in bed. Neck supple no JVD. CVS regular rate rhythm, Respiratory lungs coarse breath sound ,no respiratory distress, no wheeze, no rhonchi. Gastrointestinal abdomen soft, nontender, bowel sounds audible, no guarding , no rigidity. Extremities no edema. Neuro nonfocal, cleft lip Skin no rash Objective Data Current Medications Generic Name Dose Route Start Last Admin Trade Name Freq PRN Reason Stop Dose Admin Albuterol/Ipratropium 3 ml 05/02/21 20:00 05/04/21 08:15 Albuterol/Iprat 2.5/0.5mg 3 Ml Ampul.Neb INHALE 3 ml RQ6H WHILE AWAKE ELISSA Administration Clozapine 100 mg 05/02/21 21:00 05/03/21 20:36 Clozapine 100 Mg Tablet PO 100 mg BEDTIME ELISSA Administration Piperacillin Sod/Tazobactam 100 mls @ 200 mls/hr 05/02/21 16:45 05/04/21 11:34 Sod 4.5 gm/ Sodium Chloride IV Infused Q6H ELISSA Infusion Insulin Glargine 10 unit 05/02/21 17:00 05/04/21 07:47 Insulin Glargine,Hum.Rec.Anlog 100 Unit/Ml 10 Ml Vial SUBCUT 10 unit BID@0800,1700 ELISSA Administration Insulin Human Lispro 0 unit 05/04/21 11:30 05/04/21 11:12 Insulin Lispro 100 Unit/Ml 3 Ml Vial SUBCUT 4 unit QIDACHS ELISSA Administration Protocol Omeprazole 20 mg 05/02/21 21:00 05/03/21 08:51 Omeprazole 20 Mg Capsule. PO 20 mg BID ELISSA Administration Paroxetine HCl 40 mg 05/03/21 09:00 05/03/21 08:54 Paroxetine Hcl 40 Mg Tablet PO 40 mg DAILY ELISSA Administration Perphenazine 8 mg 05/02/21 21:00 05/02/21 21:58 Perphenazine 8 Mg Tablet PO 8 mg BEDTIME ELISSA Administration Pharmacy Consult 1 each 05/02/21 14:29 Consult Rx Perform Med Rec MISCELLANE ONCE PRN Consult order Labs CBC & Chem 7: 05/04/21 06:05 05/04/21 06:05 Labs: Laboratory Results - last 24 hr 05/03/21 05/03/21 05/04/21 16:07 20:28 06:05 WBC RBC Hgb Hct MCV MCH MCHC RDW Plt Count MPV Immature Gran % (Auto) Neut % (Auto) Lymph % (Auto) Isabella % (Auto) Eos % (Auto) Baso % (Auto) Lymph # (Auto) Isabella # (Auto) Eos # (Auto) Baso # (Auto) Abs Immat Gran (auto) Absolute Neuts (auto) Absolute Nucleated RBC Nucleated RBC % (auto) PT INR APTT 39.3 H Sodium Potassium Chloride Carbon Dioxide Anion Gap BUN Creatinine Estim Creat Clear Calc Estimated GFR POC Glucose 159 H 215 H Random Glucose Calcium Phosphorus Magnesium Total Bilirubin Direct Bilirubin AST ALT Alkaline Phosphatase Total Protein Albumin 05/04/21 05/04/21 05/04/21 06:05 06:05 06:05 WBC 5.5 RBC 3.49 L Hgb 7.0 L* Hct 24.2 L MCV 69.3 L MCH 20.1 L MCHC 28.9 L RDW 20.4 H Plt Count 263 MPV 10.5 Immature Gran % (Auto) 0.4 Neut % (Auto) 66.4 Lymph % (Auto) 18.3 L Isabella % (Auto) 11.7 H Eos % (Auto) 2.7 Baso % (Auto) 0.5 Lymph # (Auto) 1.0 L Isabella # (Auto) 0.6 Eos # (Auto) 0.2 Baso # (Auto) 0.0 Abs Immat Gran (auto) 0.02 Absolute Neuts (auto) 3.6 Absolute Nucleated RBC 0.000 Nucleated RBC % (auto) 0.0 PT 15.7 H D INR 1.3 H APTT Sodium 138 Potassium 4.6 Chloride 104 Carbon Dioxide 28 Anion Gap 11 L BUN 12 Creatinine 1.11 Estim Creat Clear Calc 69.6 Estimated GFR > 60 POC Glucose Random Glucose 302 H D Calcium 8.8 D Phosphorus 4.2 Magnesium 1.2 L* Total Bilirubin 0.4 Direct Bilirubin < 0.2 AST 14 ALT 20 Alkaline Phosphatase 74 Total Protein 5.1 L Albumin 3.1 L 05/04/21 05/04/21 07:29 11:06 WBC RBC Hgb Hct MCV MCH MCHC RDW Plt Count MPV Immature Gran % (Auto) Neut % (Auto) Lymph % (Auto) Isabella % (Auto) Eos % (Auto) Baso % (Auto) Lymph # (Auto) Isabella # (Auto) Eos # (Auto) Baso # (Auto) Abs Immat Gran (auto) Absolute Neuts (auto) Absolute Nucleated RBC Nucleated RBC % (auto) PT INR APTT Sodium Potassium Chloride Carbon Dioxide Anion Gap BUN Creatinine Estim Creat Clear Calc Estimated GFR POC Glucose 273 H 223 H Random Glucose Calcium Phosphorus Magnesium Total Bilirubin Direct Bilirubin AST ALT Alkaline Phosphatase Total Protein Albumin Microbiology Microbiology Results: Microbiology 05/02/21 11:18 Blood Culture - Preliminary Blood - Venous No growth after 48 hours. 05/02/21 11:08 Blood Culture - Preliminary Blood - Venous No growth after 48 hours. Quality Stroke Does the patient have a stroke diagnosis?: No VTE Prior VTE?: No VTE Risk Level:: Medical - moderate - high VTE Device Contraindication: N/A - Device Ordered VTE Drug Contraindication: N/A - Med Ordered Assessment and Plan (1) Sepsis: Status: Acute (2) Pneumonia: Status: Acute (3) Iron deficiency anemia: Status: Acute (4) Esophagitis with gastritis: Status: Acute (5) Low blood magnesium level: Status: Acute (6) Acute kidney injury: Status: Acute (7) Dehydration: Status: Acute (8) Hyperkalemia: Status: Acute Assessment and Plan: 55-year-old man transferred from a care home due to shortness of breath, cough weakness and found to be hypotensive in the emergency room was admitted to ICU for vasopressors and IV fluid resuscitation, patient subsequently transferred to floor on 05/03 Sepsis due to pneumonia, likely aspiration pneumonia since does not follow dietary recommendation, question some component of hospital-acquired pneumonia with recent hospitalization, blood cultures x2 are negative, respiratory viral panel neg. No fevers normal WBC, continue IV antibiotic today and switched to by mouth Augmentin at discharge Patient has history of chronic dysphagia on pureed solid and clear liquids, requested speech therapy eval they recommend to continue current diet SANDIP. Likely prerenal renal function improved with IV hydration, patient recently discharged from hospital his lisinopril was discontinued , follow BMP Hyperkalemia. Secondary to SANDIP, recently David inhibitor have been discontinued, potassium normalized. Hypomagnesemia will replace and follow labs Diabetes. Elevated blood sugars continue Lantus, metformin will add insulin sliding scale. Iron deficiency anemia recently underwent upper endoscopy that showed, esophagitis, gastritis and internal hemorrhoids, hematocrit is low will resume iron supplement Hyperlipidemia continue Lipitor Hypertension blood pressure is stable Mental health. No behavioral issues noted continue home medications clozaril, Paxil,and Trilafon, dose of Trilafon reduced due to concern for tardive diskinesia. DVT prophylaxis with compression boots.
[2021-05-04 16:19] LABS: Glucose, Whole Blood 210 mg/dL (60-115)
[2021-05-04] MEDS: Ferrous Sulfate 324 MG TABLET.DR PO (17:05)
[2021-05-04 20:22] LABS: Glucose, Whole Blood 176 mg/dL (60-115)
[2021-05-04] MEDS: cloZAPine 100 MG TABLET PO (20:37)
[2021-05-05 03:26] VITALS: BP 116/70; PULSE 91; RESP 17; TEMP 36.3; O2SAT 92
[2021-05-05] MEDS: Piperacillin Sodium/Tazobactam 4.5 GM in 0.9 % Sodium Chloride 100 ML IV (05:00)
[2021-05-05 06:59] LABS: MANUAL DIFF FLAG NO
[2021-05-05 07:08] LABS: Basophils Percent Auto 0.7 % (0-2); Eosinophils Percent Auto 0.2 % (0-4); Hematocrit 27.2 % (42-52); Hemoglobin 7.9 g/dl (14.0-18.0); Imm Gran Abs Auto 0.01 X10*3/uL (0.00-0.03); Imm Gran Pct Auto 0.2 % (0.0-0.4); Lymphocytes Absolute Auto 1.1 X10*3/uL (1.2-4.9); Lymphocytes Percent Auto 27.4 % (20-40); Mean Corpuscular Hemoglobin 20.1 pg (27.0-33.0); Mean Corpuscular Volume 69.2 fL (80-98); Monocytes Absolute Auto 0.5 X10*3/uL (0.1-1.2); Monocytes Percent Auto 11.9 % (2-11); Neutrophils Absolute Auto 2.4 X10*3/uL (2.0-8.3); Neutrophils Percent Auto 59.6 % (45-73); Platelet Count 303 X10*3/uL (160-400); Red Blood Count 3.93 X10*6/uL (4.60-5.80); Red Cell Distribution Width 20.1 % (11.0-16.0)
[2021-05-05 07:10] LABS: INTERNATIONAL NORM RATIO 1.2 (0.9-1.1); Prothrombin Time 14.7 SEC (10.8-13.0)
[2021-05-05 07:13] LABS: Partial Thromboplastin Time 43.3 SEC (24.1-38.0)
[2021-05-05 07:21] VITALS: BMI 25.6
[2021-05-05 07:22] VITALS: BP 120/83; PULSE 86; RESP 20; O2SAT 93
[2021-05-05 07:37] LABS: Glucose, Whole Blood 182 mg/dL (60-115)
[2021-05-05 07:53] LABS: Alanine Aminotransferase 23 U/L (0-40); Albumin Level 3.4 g/dL (3.5-5.0); Alkaline Phosphatase 82 U/L (39-117); Anion Gap 13 (12-20); Aspartate Amino Transferase 16 U/L (5-37); Bilirubin Direct 0.2 mg/dL (0.0-0.5); Bilirubin Total 0.2 mg/dL (0.0-1.0); Blood Urea Nitrogen 15 mg/dL (9-16); Calcium 8.9 mg/dL (8.4-10.2); Carbon Dioxide 26 mmol/L (22-29); Chloride 104 mmol/L (96-108); Creatinine Clr Calc Pharmacy 62.2; Estimated Glomerular Filt Rate > 60; Glucose Random 213 mg/dL (60-115); Magnesium 1.4 mg/dL (1.6-2.6); Phosphorus 5.4 mg/dL (2.7-4.5); Potassium 4.8 mmol/L (3.3-5.1); Sodium 138 mmol/L (135-145); Total Protein 5.8 g/dL (6.5-8.0)
[2021-05-05] MEDS: Insulin Lispro 100 UNIT/ML 3 ML VIAL SUBCUT ×3 (08:09→17:23)
[2021-05-05] MEDS: Insulin Glargine,Hum.rec.anlog 100 UNIT/ML 10 ML VIAL 10 UNIT SUBCUT ×2 (08:11→17:24)
[2021-05-05] MEDS: Ferrous Sulfate 324 MG TABLET.DR PO ×2 (08:12→17:24)
[2021-05-05] MEDS: Perphenazine 8 MG TABLET PO (08:12)
[2021-05-05] MEDS: Amoxicillin/Potassium Clav 875 MG TABLET PO (08:12)
[2021-05-05 08:15] VITALS: PULSE 88; O2SAT 91
[2021-05-05] MEDS: Albuterol/Iprat 2.5/0.5MG 3 ML AMPUL.NEB INHALE ×2 (08:15→15:58)
[2021-05-05] MEDS: Magnesium Oxide 400 MG TABLET PO ×2 (08:38→17:24)
[2021-05-05] MEDS: Magnesium Sulfate/H2O 2 GM/50 ML PIGGYBACK IV (08:40)
--- NOTE | 2021-05-05 10:51 | MHC.SL.SWA ---
Speech Pathologist Impression: of Aspiration Oral Phase Dysphagia Risk of Aspiration Due to: History of Pneumonia Reduced Cognition Dysphasia Diet Status: UPGRADE Liquid Consistency and Strategies for Safe Swallow: Liquid Intake Recommendation: Thin Liquid Intake Strategies: Small Sips Solid Food Consistency: Dietary Recommendations: Grnd/Mech Altered (NDD2) Additional Modifications to Solid Foods: At this time, CHEESE SPECIALIST recommends UPGRADE to GROUND/MECH ALTERED (NDD2) solids and MAINTAIN THIN liquids with pills CRUSHED IN PUREE. Patient requires universal aspiration precautions. Due to impulsivity eating and recent upgrade from baseline diet, strongly recommend TOTAL SUPERVISION during meals to ensure tolerance, closely monitor for any overt s/s of aspiration, and provide cues for aspiration precautions. Oral Medication Intake: Crushed with Puree Compensatory Strategies and Precautions to be Taken for Safe Swallow: Sit Upright (90 deg) Liquids from Cup Small Bites and Sips Alternate Liquids/Solids Rate of Ingestion Change Oral Check Avoid Specific Foods Supervision While Eating and Drinking for Safe Swallow: Total Supervision (1:1) Foods to Avoid: Recommend food to be moistened with sauce/gravy. Recommend consistent cues for aspiration precautions and intermittent oral cavity check to ensure clearance. Recommend avoid tough textures, sticky textures, and mixed consistencies. Swallowing Recommended Treatments: Compens. Strategy Educat. Recommendation for Speech: Inpatient Speech Therapy Comment: CHEESE SPECIALIST will continue to follow during hospitalization, as appropriate. Billing Adjudicator Clinican/Clinical Fellow: No Supervisory Statement: I have reviewed and agree with the student/clinical fellow's documentation: N/A Speech Language Pathologist: Margaux Blakely M.A., CCC-CHEESE SPECIALIST
[2021-05-05 11:09] VITALS: BP 121/75; PULSE 90; RESP 18; TEMP 36; O2SAT 93
[2021-05-05 11:09] LABS: Glucose, Whole Blood 284 mg/dL (60-115)
[2021-05-05 12:10] LABS: Magnesium 2.1 mg/dL (1.6-2.6)
--- NOTE | 2021-05-05 12:45 | PC.NURSE ---
ike lunch, soft diet, without diff. Supervised.
[2021-05-05 13:52] LABS: Haptoglobin 201 mg/dL (43-212)
--- NOTE | 2021-05-05 14:17 | MHC.CM.PN ---
SNF CONTACT, PIETER ([phone]) IS AWARE THAT PATIENT IS DC TODAY. STAFF WILL ARRIVE BETWEEN [phone] TO TRANSPORT. PATIENT WILL RESUME [facility]. IMM 05/04 IN CHART
[2021-05-05 15:16] VITALS: BP 114/77; PULSE 98; RESP 16; TEMP 36.5; O2SAT 94
[2021-05-05 15:58] VITALS: PULSE 86; O2SAT 93
[2021-05-05 16:13] LABS: Glucose, Whole Blood 211 mg/dL (60-115)
--- NOTE | 2021-05-05 17:22 | PM.DS ---
DS: Providers Provider Date of Service: 05/05/21 Date of admission: 05/02/21 16:23 Primary care physician: Nighat Muñoz MD Consults: 05/02/21 20:32 Consult Respiratory Therapy Routine Reason for consultation: e-cig use daily DS: Diagnosis Discharge Diagnosis (1) Sepsis: Status: Acute (2) Pneumonia: Status: Acute (3) Iron deficiency anemia: Status: Acute (4) Esophagitis with gastritis: Status: Acute (5) Low blood magnesium level: Status: Acute (6) Acute kidney injury: Status: Acute (7) Dehydration: Status: Acute (8) Hyperkalemia: Status: Acute DS: Medications Discharge Medications Home Medications: Home Medications Medication Instructions Recorded Confirmed benztropine 1 tab PO BID 10/07/20 05/02/21 budesonide 1 vial INHALATION BID 10/07/20 05/02/21 clozapine 3 tab PO BEDTIME 10/07/20 05/02/21 perphenazine 8 mg PO BEDTIME 10/07/20 05/02/21 simvastatin 40 mg PO BEDTIME 10/07/20 05/02/21 Invega Sustenna 156 mg IM Q28D 04/25/21 05/02/21 Lantus Solostar U-100 Insulin 40 unit SUBCUT DAILY 04/25/21 05/02/21 acetaminophen [Tylenol] 650 mg PO Q6H PRN 04/25/21 05/02/21 albuterol sulfate [ProAir HFA] 2 inh INHALATION QID PRN 04/25/21 05/02/21 ferrous sulfate 324 mg PO BID 04/25/21 05/02/21 ipratropium-albuterol 3 ml INHALATION Q6H PRN 04/25/21 05/02/21 paroxetine HCl 40 mg PO DAILY 04/25/21 05/02/21 perphenazine 16 mg PO BID 04/25/21 05/02/21 Previous Rx's Medication Instructions Recorded pantoprazole [Protonix] 40 mg PO BID #60 tab 04/28/21 amoxicillin-pot clavulanate 875 mg PO Q12H #10 tab 05/05/21 magnesium oxide 400 mg PO BIDPC #60 tab 05/05/21 DS: Summary Hospital Course Hospital Course: History of presenting illness Date of Service: 05/02/21 Chief Complaint: Dyspnea/hypotension 55-year-old male in a longterm due to mental compromise possible underlying schizoaffective on combination of atypical antipsychotics and SSRI agents with chronic aspiration for which she is on a pureed diet and he has an underlying insulin-requiring type 2 diabetic with an element of COPD recently in the hospital because of dehydration with acute kidney insufficiency that resolved no antibiotics were necessary presents now with the weakness apparently some diarrhea cough and dyspnea and by CT scan has an extensive right-sided pneumonia in all probability aspiration because he does not cooperate with the pureed diet and was hypoxic now compensated on nasal cannula but hypotensive despite 2.5 L of IV fluid and a distended IVC indicating that he has at least euvolemic with underlying normal LV and RV function and no primary valve or pericardial disease so at this point he requires pressors for his blood pressure in the high 70s and bill temporized with Chang-Synephrine and continue maintenance IV therapy but given the septic presentation with lactate pending we will continue this mode of therapy and pressors until he is able to be weaned from pressors and then transferable to the floor The pneumonia at and now has a potential element of hospital-acquired and therefore treatment will be combination of Zosyn and [facility] course 55-year-old man transferred from a longterm due to shortness of breath, cough weakness and found to be hypotensive in the emergency room was admitted to ICU for vasopressors and IV fluid resuscitation, patient subsequently transferred to floor on 05/03 after his blood pressure was stablized patient was diagnosed to have sepsis due to pneumonia, likely aspiration pneumonia since does not follow dietary recommendation, question some component of hospital-acquired pneumonia with recent hospitalization, blood cultures x2 are negative, respiratory viral panel neg. No fevers normal WBC, patient initially treated with IV Zosyn now switched to by mouth Augmentin, he has history of chronic dysphagia on pureed solid and clear liquids, seen by speech therapy they upgraded diet to ground and continued clear liquid, patient will require close supervision with meals, recommend small bites since patient is hemodynamically stable he is being discharged to longterm. Patient also diagnosed to have acute renal failure likely pre renal that improved with IV fluids and hyperkalemia resolved. Patient noted to have Hypomagnesemia that seems chronic on magnesium replacement likely secondary to use of PPI, will increase dose of magnesium oxide to 400 mg b.i.d., reassess need for continued PPI. In regard to Diabetes continue home medications and diabetic diet. Iron deficiency anemia recently underwent upper endoscopy that showed, esophagitis, gastritis and internal hemorrhoids, resume iron supplements. Mental health.No behavioral issues noted continue home medications clozaril, Paxil,and Trilafon, dose of Trilafon, need to reduced due to concern for tardive diskinesia. Recommend outpatient psych follow-up. Time Spent with Patient Time attestation: Total time spent providing and/or coordinating discharge services: Discharge coordination time: Greater than 30 minutes Quality: Stroke Does the patient have a stroke diagnosis?: No Physical Exam Vital Signs: Vital Signs: Last Vital Signs Temp 97.7 F 05/05/21 15:16 Pulse 86 05/05/21 15:58 Resp 16 05/05/21 15:16 BP 114/77 05/05/21 15:16 Pulse Ox 94 05/05/21 15:16 Oxygen Flow Rate 2 05/02/21 10:12 Body Mass Index 25.6 General no acute distress, resting comfortably in bed. Neck supple no JVD. CVS regular rate rhythm, Respiratory lungs coarse breath sound ,no respiratory distress, no wheeze, no rhonchi. Gastrointestinal abdomen soft, nontender, bowel sounds audible, no guarding , no rigidity. Extremities no edema. Neuro nonfocal, cleft lip Skin no rash DS: Data Data Completed and Pending Labs on day of discharge: Laboratory Results - last 24 hr 05/03/21 05/04/21 05/05/21 08:09 20:11 06:31 WBC RBC Hgb Hct MCV MCH MCHC RDW Plt Count MPV Immature Gran % (Auto) Neut % (Auto) Lymph % (Auto) Ramsey % (Auto) Eos % (Auto) Baso % (Auto) Lymph # (Auto) Ramsey # (Auto) Eos # (Auto) Baso # (Auto) Abs Immat Gran (auto) Absolute Neuts (auto) Absolute Nucleated RBC Nucleated RBC % (auto) Haptoglobin 201 PT 14.7 H INR 1.2 H APTT 43.3 H Sodium Potassium Chloride Carbon Dioxide Anion Gap BUN Creatinine Estim Creat Clear Calc Estimated GFR POC Glucose 176 H Random Glucose Calcium Phosphorus Magnesium Total Bilirubin Direct Bilirubin AST ALT Alkaline Phosphatase Total Protein Albumin 05/05/21 05/05/21 05/05/21 06:31 06:31 06:31 WBC 4.0 L RBC 3.93 L Hgb 7.9 L Hct 27.2 L MCV 69.2 L MCH 20.1 L MCHC 29.0 L RDW 20.1 H Plt Count 303 MPV 10.0 Immature Gran % (Auto) 0.2 Neut % (Auto) 59.6 Lymph % (Auto) 27.4 Ramsey % (Auto) 11.9 H Eos % (Auto) 0.2 Baso % (Auto) 0.7 Lymph # (Auto) 1.1 L Ramsey # (Auto) 0.5 Eos # (Auto) 0.0 Baso # (Auto) 0.0 Abs Immat Gran (auto) 0.01 Absolute Neuts (auto) 2.4 Absolute Nucleated RBC 0.000 Nucleated RBC % (auto) 0.0 Haptoglobin PT Cancelled INR Cancelled APTT Sodium 138 Potassium 4.8 Chloride 104 Carbon Dioxide 26 Anion Gap 13 BUN 15 Creatinine 1.15 Estim Creat Clear Calc 62.2 Estimated GFR > 60 POC Glucose Random Glucose 213 H Calcium 8.9 Phosphorus 5.4 H Magnesium 1.4 L* Total Bilirubin 0.2 Direct Bilirubin 0.2 AST 16 ALT 23 Alkaline Phosphatase 82 Total Protein 5.8 L Albumin 3.4 L 05/05/21 05/05/21 05/05/21 07:31 11:05 11:23 WBC RBC Hgb Hct MCV MCH MCHC RDW Plt Count MPV Immature Gran % (Auto) Neut % (Auto) Lymph % (Auto) Ramsey % (Auto) Eos % (Auto) Baso % (Auto) Lymph # (Auto) Ramsey # (Auto) Eos # (Auto) Baso # (Auto) Abs Immat Gran (auto) Absolute Neuts (auto) Absolute Nucleated RBC Nucleated RBC % (auto) Haptoglobin PT INR APTT Sodium Potassium Chloride Carbon Dioxide Anion Gap BUN Creatinine Estim Creat Clear Calc Estimated GFR POC Glucose 182 H 284 H Random Glucose Calcium Phosphorus Magnesium 2.1 Total Bilirubin Direct Bilirubin AST ALT Alkaline Phosphatase Total Protein Albumin 05/05/21 16:09 WBC RBC Hgb Hct MCV MCH MCHC RDW Plt Count MPV Immature Gran % (Auto) Neut % (Auto) Lymph % (Auto) Ramsey % (Auto) Eos % (Auto) Baso % (Auto) Lymph # (Auto) Ramsey # (Auto) Eos # (Auto) Baso # (Auto) Abs Immat Gran (auto) Absolute Neuts (auto) Absolute Nucleated RBC Nucleated RBC % (auto) Haptoglobin PT INR APTT Sodium Potassium Chloride Carbon Dioxide Anion Gap BUN Creatinine Estim Creat Clear Calc Estimated GFR POC Glucose 211 H Random Glucose Calcium Phosphorus Magnesium Total Bilirubin Direct Bilirubin AST ALT Alkaline Phosphatase Total Protein Albumin Preliminary micro results at discharge 05/02/21 11:18 Blood Culture - Preliminary Blood - Venous No growth after 48 hours. 05/02/21 11:08 Blood Culture - Preliminary Blood - Venous No growth after 48 hours. Discharge Plan Discharge Patient Disposition: Home Health Service Discharge Diagnosis: Sepsis due to pneumonia Acute kidney injury Hypo magnesemia Iron deficiency anemia Dysphagia Referrals: [facility] [Other] - 1 Week (PATIENT IS RETURNING HOME WITH RESUMPTION OF HIS [facility].) Nighat Muñoz MD [Primary Care Provider] - 1 Week Discharge Medications: New amoxicillin-pot clavulanate 875-125 mg Tablet 875 mg PO Q12H Qty: 10 RF: 0 magnesium oxide 400 mg (241.3 mg magnesium) Tablet 400 mg PO BIDPC Qty: 60 RF: 0 Continued clozapine 100 mg tablet 3 tab PO BEDTIME RF: 0 simvastatin 40 mg tablet 40 mg PO BEDTIME RF: 0 benztropine 1 mg tablet 1 tab PO BID RF: 0 budesonide 0.5 mg/2 mL suspension for nebulization 1 vial inhalation BID RF: 0 perphenazine 8 mg tablet 8 mg PO BEDTIME RF: 0 ipratropium-albuterol 0.5 mg-3 mg(2.5 mg base)/3 mL solution for nebulization 3 ml inhalation Q6H PRN (Reason: Wheezing) RF: 0 paroxetine HCl 40 mg tablet 40 mg PO DAILY RF: 0 perphenazine 16 mg tablet 16 mg PO BID RF: 0 Lantus Solostar U-100 Insulin 100 unit/mL (3 mL) insulin pen 40 unit subcut DAILY RF: 0 Invega Sustenna 156 mg/mL syringe 156 mg IM Q28D RF: 0 albuterol sulfate [ProAir HFA] 90 mcg/actuation HFA aerosol inhaler 2 inh inhalation QID PRN (Reason: shortness of breath or wheezing) RF: 0 ferrous sulfate 324 mg (65 mg iron) tablet,delayed release (DR/EC) 324 mg PO BID RF: 0 acetaminophen [Tylenol] 325 mg Tablet 650 mg PO Q6H PRN (Reason: Pain) RF: 0 pantoprazole [Protonix] 40 mg tablet,delayed release (DR/EC) 40 mg PO BID Qty: 60 RF: 0 Discontinued metformin 1,000 mg tablet 1 tab PO BID@0800,1700 RF: 0 magnesium 250 mg Tablet 250 mg PO BID RF: 0 Discharge Orders: Discharge Order (Routine); Ordered 05/05/21 Ordered By: Rosaura Shannon Diet: diabetic diet Activity on Discharge: As tolerated Stand Alone Forms: Patient Portal Discharge page Care Plan Goals: Aspiration pneumonia, seen by speech therapy diet upgraded to ground solids and thin liquids and crushed pills continue total supervision during meals to ensure aspiration precautions recommend to take small bites eat 1 bite at a time clear mouth before taking more bites Low magnesium likely due to use of Protonix twice daily dose of magnesium increased follow magnesium level In regard to psych medication is on Trilafon concern about tardive dyskinesia please follow-up with psychiatry to adjust medication Health Concerns: Take all medications as prescribed Plan of Treatment: Follow-up with primary care physician in 1 week Assessment: As above
== END 2021-05-05 18:00 | disposition home health service (06) | DRG 871 ==
LOC: HO.ED 12:29 → HO.EDOVER 16:42 → HO.ICU 20:06 → HO.S3 05-03 12:40
PROVIDERS: Internal Medicine; Physician Assistant; Physician Assistant Medical; Admitting Provider Internal Medicine Cardiovascular Disease; Emergency Provider Emergency Medicine Emergency Medical Services; PCP Family Medicine; Visit Provider Hospitalist
DX: A41.9 Sepsis, unspecified organism (principal); J69.0 Pneumonitis due to inhalation of food and vomit; N17.9 Acute kidney failure, unspecified; E87.5 Hyperkalemia; E86.0 Dehydration; K20.90 Esophagitis, unspecified without bleeding; E78.5 Hyperlipidemia, unspecified; K29.70 Gastritis, unspecified, without bleeding; E83.42 Hypomagnesemia; J44.9 Chronic obstructive pulmonary disease, unspecified; Q86.0 Fetal alcohol syndrome (dysmorphic); D50.0 Iron deficiency anemia secondary to blood loss (chronic); Z91.11 Patient's noncompliance with dietary regimen; Z20.822 Contact with and (suspected) exposure to COVID-19; Z79.4 Long term (current) use of insulin; Z79.899 Other long term (current) drug therapy
CPT/HCPCS: 36415; 71046; 71275; 74177; 80048; 80053; 80076; 81003; 82077; 82728; 82947; 83010; 83605; 83615; 83690; 83735; 83880; 84100; 84145; 84484; 85025; 85610; 85730; 86140; 86850; 86880; 86900; 86901; 87040; 87324; 87449; 87633; 87635; 92610; 93005; 94640; 99285; J0610; J1956; J2370; J2543; J3475; Q9967

== ENCOUNTER 2021-05-14 16:26 | Emergency (ER) | payer OTHER, SELFPAY ==
--- NOTE | ~2021-05-14 | CT_ITS ---
Indication: Fall EXAMINATION: CT the brain and CT the cervical spine. Axial imaging with coronal and sagittal reformatted images. Radiation dose [address] brain; No midline shift. No mass effect. No hemorrhage. Basilar cisterns appear patent. Posterior fossa risk grossly within normal limits. No extra-axial collection. Note is made of scattered white matter ischemic change. No evidence for fracture on the bone windows. Mild frontal sinus opacities. CT cervical spine; Reversal of the normal lordosis. [place] at C5-C6. No fracture or dislocation. Degenerative changes are noted. CT/CT cervical spine wo con IMPRESSION: Negative acute noncontrast CT of the brain. No acute fracture or dislocation of the cervical spine. Reversal of the normal lordosis may be due to position or spasm.
--- NOTE | ~2021-05-14 | XR_ITS ---
EXAMINATION: XR CHEST CLINICAL INFORMATION: Fall COMPARISON: 05/02/2021 TECHNIQUE: Frontal view of the chest was obtained. FINDINGS: Mild left basilar atelectasis. Otherwise lung [place] are clear. No displaced fracture. No pneumothorax. The mediastinal contours are within normal limits. XR/XR chest 1V IMPRESSION: Minimal left basilar atelectasis.
--- NOTE | ~2021-05-14 | XR_ITS ---
EXAMINATION: XR KNEE, RIGHT CLINICAL INFORMATION: Fall COMPARISON: None TECHNIQUE: Four views of the right knee. FINDINGS: Mild to moderate degenerative changes. There is no acute fracture or dislocation. XR/XR knee RT 4V IMPRESSION: No acute fracture or dislocation right knee
--- NOTE | ~2021-05-14 | CT_ITS ---
Indication: Fall EXAMINATION: CT the brain and CT the cervical spine. Axial imaging with coronal and sagittal reformatted images. Radiation dose [address] brain; No midline shift. No mass effect. No hemorrhage. Basilar cisterns appear patent. Posterior fossa risk grossly within normal limits. No extra-axial collection. Note is made of scattered white matter ischemic change. No evidence for fracture on the bone windows. Mild frontal sinus opacities. CT cervical spine; Reversal of the normal lordosis. [place] at C5-C6. No fracture or dislocation. Degenerative changes are noted. CT/CT head/brain wo con IMPRESSION: Negative acute noncontrast CT of the brain. No acute fracture or dislocation of the cervical spine. Reversal of the normal lordosis may be due to position or spasm.
[2021-05-14 16:30] VITALS: BP 122/69; BP 132/86; PULSE 110; PULSE 116; RESP 26; TEMP 37.7; O2SAT 98; BMI 25.0
--- NOTE | 2021-05-14 16:40 | ED.FALL ---
HPI - Fall General Chief Complaint: Fall Stated Complaint: fall Time Seen by Provider: 05/14/21 16:35 Source: patient and EMS Mode of arrival: EMS Limitations: other (limited historian) History of Present Illness MD complaint: fall Onset (ago): minute(s) Fall from: standing Fall witnessed: yes, by bystander Place fall occurred: street Loss of consciousness: unsure Prolonged down time: no Symptoms prior to fall: none Context: tripped/slipped Location of injury: head and face Location of injury - extremities: right: shoulder Severity: mild Quality: dull Associated symptoms (after fall): headache Related Data Home Medications Medication Instructions Recorded Confirmed benztropine 1 tab PO BID 10/07/20 05/02/21 budesonide 1 vial INHALATION BID 10/07/20 05/02/21 clozapine 3 tab PO BEDTIME 10/07/20 05/02/21 perphenazine 8 mg PO BEDTIME 10/07/20 05/02/21 simvastatin 40 mg PO BEDTIME 10/07/20 05/02/21 Invega Sustenna 156 mg IM Q28D 04/25/21 05/02/21 Lantus Solostar U-100 Insulin 40 unit SUBCUT DAILY 04/25/21 05/02/21 acetaminophen [Tylenol] 650 mg PO Q6H PRN 04/25/21 05/02/21 albuterol sulfate [ProAir HFA] 2 inh INHALATION QID PRN 04/25/21 05/02/21 ferrous sulfate 324 mg PO BID 04/25/21 05/02/21 ipratropium-albuterol 3 ml INHALATION Q6H PRN 04/25/21 05/02/21 paroxetine HCl 40 mg PO DAILY 04/25/21 05/02/21 perphenazine 16 mg PO BID 04/25/21 05/02/21 Previous Rx's Medication Instructions Recorded pantoprazole [Protonix] 40 mg PO BID #60 tab 04/28/21 amoxicillin-pot clavulanate 875 mg PO Q12H #10 tab 05/05/21 magnesium oxide 400 mg PO BIDPC #60 tab 05/05/21 Allergies Allergy/AdvReac Type Severity Reaction Status Date / Time No Known Allergies Allergy Verified 04/25/21 17:24 Review of Systems Review of Systems: Constitutional : No Fever, No Chills ENT/Mouth : No Ear Pain, No Hoarseness, No sore throat Eyes: No Eye Pain, No Swelling, No Redness, No Foreign Body Cardiovascular : No Chest Pain, No SOB Respiratory : No Cough, No Dyspnea Gastrointestinal : No Nausea, No Vomiting, No Diarrhea, No abdominal Pain Genitourinary : No Dysuria, No Hematuria Musculoskeletal : positive joint pain, No Myalgias, No Joint Swelling Skin : pos Skin lacerations, No rash Neuro : No Weakness, No Numbness, unknown Loss of Consciousness, No Dizziness, pos Headache Psych : No Anxiety/Panic, No Depression Heme/Lymph: no easy bruising, no Lymphadenopathy Endocrine : No Polyuria, No Polydipsia All other systems reviewed and are negative [facility] Past Medical History Attestation statement: The following information was validated with the patient. Medical History SANDIP (acute kidney injury) Aspiration pneumonia COPD (chronic obstructive pulmonary disease) Depression Diabetes Dysphagia Esophagitis with gastritis alcohol syndrome HTN (hypertension) Hyperkalemia Hyperkalemia Hyperlipidemia Internal hemorrhoids Internal hemorrhoids Iron deficiency anemia Iron deficiency anemia Obstructive sleep apnea Paranoia Schizo-affective schizophrenia Surgical History H/O endoscopy Social History Social History Household Members: Other Housing: Other Housing Other:: [facility] Do you presently have visiting nurse or other home services: No Unable to assess alcohol history related to: Unknown Alcohol intake: never Patient Tobacco Use Status: Current everyday Tobacco user e-Cigarette/Vaping Use: Currently Using Second Hand Smoke Exposure: No Use of substances other than those prescribed or required for medical reasons: No Substance Use Type: Crack/Cocaine Advance Directives: No Advance Directives Information Provided: No service: No Current occupational status: disabled Physical Exam Vital Signs: Vital Signs: Last Vital Signs Temp 99.9 F 05/14/21 16:30 Pulse 110 H 05/14/21 17:48 Resp 16 05/14/21 17:48 BP 135/84 05/14/21 17:48 Pulse Ox 95 05/14/21 17:48 Body Mass Index 25.0 Appearance: Alert. Oriented X3. No acute distress. Eyes: Pupils equal, round and reactive to light. ENT: Pharynx normal. contusion and abrasion to R forehead Neck: Normal inspection. Neck supple. CVS: tachycardic heart rate and rhythm. Pulses normal. Respiratory: No respiratory distress. Breath sounds normal. Abdomen: Soft and non-tender. Skin: Skin warm and dry. Normal skin color. Normal skin turgor. Extremities: No lower extremity edema. No calf ttp R knee can range it but abrasion and contusion to patella Neuro: Oriented X 3. No motor deficit. No sensory deficit. Course Course Course Narrative: H/H stable BS low currently feeding patient signed out to Dr. Reilly pending CT scans observation, UA/CXR MDM - Fall MDM Narrative Medical decision making narrative: 55 yo male with hx of alcohol syndrome, pneumonia, schizoaffective disorder, COPD, DM comes in with c/o trip and slip outside on the street striking his head and scraping R knee at this time will need CT head/neck, xray, jsut seen for SANDIP and anemia will obtain CBC/BMP Lab Data Result diagrams: 05/14/21 16:52 05/14/21 16:52 Labs: Lab Results 05/14/21 05/14/21 Range/Units 16:52 16:52 WBC 9.0 (4.8-10.8) X10*3/uL RBC 3.96 L (4.60-5.80) X10*6/uL Hgb 7.9 L (14.0-18.0) g/dl Hct 27.3 L (42-52) % MCV 68.9 L (80-98) fL MCH 19.9 L (27.0-33.0) pg MCHC 28.9 L (31.0-36.0) g/dl RDW 19.7 H (11.0-16.0) % Plt Count 542 H D (160-400) X10*3/uL MPV 9.1 L (9.4-12.4) fL Immature Gran % (Auto) 0.3 (0.0-0.4) % Neut % (Auto) 81.3 H (45-73) % Lymph % (Auto) 12.3 L (20-40) % [place] % (Auto) 5.7 (2-11) % Eos % (Auto) 0.0 (0-4) % Baso % (Auto) 0.4 (0-2) % Lymph # (Auto) 1.1 L (1.2-4.9) X10*3/uL [place] # (Auto) 0.5 (0.1-1.2) X10*3/uL Eos # (Auto) 0.0 (0.0-0.4) X10*3/uL Baso # (Auto) 0.0 (0.0-0.2) X10*3/uL Abs Immat Gran (auto) 0.03 (0.00-0.03) X10*3/uL Absolute Neuts (auto) 7.3 (2.0-8.3) X10*3/uL Absolute Nucleated RBC 0.000 (0.0-0.012) X10*3/uL Nucleated RBC % (auto) 0.0 (0.0-0.2) /100WBC Sodium 145 (135-145) mmol/L Potassium 4.2 (3.3-5.1) mmol/L Chloride 108 (96-108) mmol/L Carbon Dioxide 26 (22-29) mmol/L Anion Gap 15 (12-20) BUN 25 H D (9-16) mg/dL Creatinine 1.05 (0.5-1.4) mg/dL Estim Creat Clear Calc 70.7 Estimated GFR > 60 Random Glucose 54 L* (60-115) mg/dL Calcium 9.3 (8.4-10.2) mg/dL Discharge Plan Discharge Clinical Impression: Hypoglycemia Contusion Qualifiers: Encounter type: initial encounter Contusion area: knee Laterality: right Qualified Code(s): S80.01XA - Contusion of right knee, initial encounter Prescriptions: No Action clozapine 100 mg tablet 3 tab PO BEDTIME RF: 0 simvastatin 40 mg tablet 40 mg PO BEDTIME RF: 0 benztropine 1 mg tablet 1 tab PO BID RF: 0 budesonide 0.5 mg/2 mL suspension for nebulization 1 vial inhalation BID RF: 0 perphenazine 8 mg tablet 8 mg PO BEDTIME RF: 0 ipratropium-albuterol 0.5 mg-3 mg(2.5 mg base)/3 mL solution for nebulization 3 ml inhalation Q6H PRN (Reason: Wheezing) RF: 0 paroxetine HCl 40 mg tablet 40 mg PO DAILY RF: 0 perphenazine 16 mg tablet 16 mg PO BID RF: 0 [place] Solostar U-100 Insulin 100 unit/mL (3 mL) insulin pen 40 unit subcut DAILY RF: 0 Invega Sustenna 156 mg/mL syringe 156 mg IM Q28D RF: 0 albuterol sulfate [ProAir HFA] 90 mcg/actuation HFA aerosol inhaler 2 inh inhalation QID PRN (Reason: shortness of breath or wheezing) RF: 0 ferrous sulfate 324 mg (65 mg iron) tablet,delayed release (DR/EC) 324 mg PO BID RF: 0 acetaminophen [Tylenol] 325 mg Tablet 650 mg PO Q6H PRN (Reason: Pain) RF: 0 pantoprazole [Protonix] 40 mg tablet,delayed release (DR/EC) 40 mg PO BID Qty: 60 RF: 0 amoxicillin-pot clavulanate 875-125 mg Tablet 875 mg PO Q12H Qty: 10 RF: 0 magnesium oxide 400 mg (241.3 mg magnesium) Tablet 400 mg PO BIDPC Qty: 60 RF: 0
[2021-05-14 16:55] LABS: MANUAL DIFF FLAG NO
[2021-05-14 16:59] LABS: Basophils Percent Auto 0.4 % (0-2); Hematocrit 27.3 % (42-52); Hemoglobin 7.9 g/dl (14.0-18.0); Imm Gran Abs Auto 0.03 X10*3/uL (0.00-0.03); Imm Gran Pct Auto 0.3 % (0.0-0.4); Lymphocytes Absolute Auto 1.1 X10*3/uL (1.2-4.9); Lymphocytes Percent Auto 12.3 % (20-40); Mean Corpuscular HGB Conc 28.9 g/dl (31.0-36.0); Mean Corpuscular Hemoglobin 19.9 pg (27.0-33.0); Mean Corpuscular Volume 68.9 fL (80-98); Mean Platelet Volume 9.1 fL (9.4-12.4); Monocytes Absolute Auto 0.5 X10*3/uL (0.1-1.2); Monocytes Percent Auto 5.7 % (2-11); Neutrophils Absolute Auto 7.3 X10*3/uL (2.0-8.3); Neutrophils Percent Auto 81.3 % (45-73); Platelet Count 542 X10*3/uL (160-400); Red Blood Count 3.96 X10*6/uL (4.60-5.80); Red Cell Distribution Width 19.7 % (11.0-16.0)
[2021-05-14 17:23] LABS: Anion Gap 15 (12-20); Blood Urea Nitrogen 25 mg/dL (9-16); Calcium 9.3 mg/dL (8.4-10.2); Carbon Dioxide 26 mmol/L (22-29); Chloride 108 mmol/L (96-108); Creatinine Clr Calc Pharmacy 70.7; Estimated Glomerular Filt Rate > 60; Glucose Random 54 mg/dL (60-115); Potassium 4.2 mmol/L (3.3-5.1); Sodium 145 mmol/L (135-145)
[2021-05-14 17:48] VITALS: BP 135/84; PULSE 110; RESP 16; O2SAT 95
[2021-05-14 18:16] LABS: Glucose Urine UA 100 MG/DL (NEG); Leukocyte Esterase Urine NEG (NEG); Nitrite Urine NEG (NEG); Specific Gravity - Urine 1.025 (1.005-1.025); Urine Blood NEG (NEG); Urine Ketones NEG (NEG); Urine Protein 2+ MG/DL (NEG-TRACE)
[2021-05-14 18:19] LABS: Appearance Urine CLEAR; Color Urine YELLOW
[2021-05-14 18:23] LABS: Glucose, Whole Blood 104 mg/dL (60-115)
[2021-05-14 18:32] LABS: RBC Urine 0-2 /HPF (0); WBC Urine 0-2 /HPF (0-4)
[2021-05-14 19:31] VITALS: PULSE 107; RESP 20
== END 2021-05-14 21:55 | disposition home or self-care (01) ==
PROVIDERS: Emergency Provider Emergency Medicine; PCP Nurse Practitioner Family
DX: E11.649 Type 2 diabetes mellitus with hypoglycemia without coma (principal); S80.01XA Contusion of right knee, initial encounter; I10 Essential (primary) hypertension; J44.9 Chronic obstructive pulmonary disease, unspecified; Z79.4 Long term (current) use of insulin; Z79.899 Other long term (current) drug therapy; W01.0XXA Fall on same level from slipping, tripping and stumbling without subsequent striking against object, initial encounter; Y93.9 Activity, unspecified; Y92.410 Unspecified street and highway as the place of occurrence of the external cause; Y99.9 Unspecified external cause status
CPT/HCPCS: 36415; 70450; 71045; 72125; 73564; 80048; 81001; 82947; 85025; 99284; 99285

== ENCOUNTER → 2021-06-17 08:58 | Outpatient (BNVA) | payer OTHER, SELFPAY | PROVIDERS: PCP Family Medicine; Visit Provider Internal Medicine Gastroenterology | CPT/HCPCS: Q3014 ==

== ENCOUNTER 2021-07-02 12:18 | Emergency (ER) | payer OTHER, SELFPAY ==
[2021-07-02 12:22] VITALS: BP 148/70; PULSE 97; O2SAT 98
[2021-07-02 12:28] VITALS: BP 140/89; PULSE 92; RESP 18; TEMP 36.7; O2SAT 95; BMI 26.4
[2021-07-02 12:33] LABS: Glucose, Whole Blood 334 mg/dL (60-115)
[2021-07-02 12:39] VITALS: BP 140/89; PULSE 89; RESP 18; TEMP 37; O2SAT 95
--- NOTE | 2021-07-02 12:45 | PC.NURSE ---
Pt alert and oriented x3. Pt brought to ed via ems from his long term where he resides. Per ems long term staff reported pt's blood sugar was in the high 400s when it was checked this morning, long term staff gave pt his coverage. Pt currently reports dizziness and unsteady gait. no n/v, no sob/difficulty breathing, no tremors, speech at baseline. Current blood sugar is 334, ed provider notified. No apparent distress noted.
--- NOTE | 2021-07-02 13:03 | ED_ITS ---
HPI - General Adult General Chief complaint: General Medical Stated complaint: HYPERGLYCEMIA. 421 Time Seen by Provider: 07/02/21 13:00 Source: patient and EMS Mode of arrival: EMS Limitations: no limitations History of Present Illness HPI narrative: 55 years old male with history of insulin-dependent diabetes and developmental delay came in from a custodial for evaluation of hyperglycemia. Patient otherwise has no symptoms. Related Data Home Medications Medication Instructions Recorded Confirmed benztropine 1 mg tablet 1 tab PO BID 10/07/20 05/02/21 budesonide 0.5 mg/2 mL suspension 1 vial INHALATION BID 10/07/20 05/02/21 for nebulization clozapine 100 mg tablet 3 tab PO BEDTIME 10/07/20 05/02/21 perphenazine 8 mg tablet 8 mg PO BEDTIME 10/07/20 05/02/21 simvastatin 40 mg tablet 40 mg PO BEDTIME 10/07/20 05/02/21 acetaminophen 325 mg tablet 650 mg PO Q6H PRN 04/25/21 05/02/21 (Tylenol) albuterol sulfate 90 mcg/actuation 2 inh INHALATION QID PRN 04/25/21 05/02/21 aerosol inhaler (ProAir HFA) ferrous sulfate 324 mg (65 mg 324 mg PO BID 04/25/21 05/02/21 iron) tablet,delayed release insulin glargine 100 unit/mL (3 40 unit SUBCUT DAILY 04/25/21 05/02/21 mL) subcutaneous pen (Lantus Solostar U-100 Insulin) ipratropium 0.5 mg-albuterol 3 mg 3 ml INHALATION Q6H PRN 04/25/21 05/02/21 (2.5 mg base)/3 mL nebulization soln paliperidone palmitate 156 mg/mL 156 mg IM Q28D 04/25/21 05/02/21 intramuscular syringe (Invega Sustenna) paroxetine HCl 40 mg tablet 40 mg PO DAILY 04/25/21 05/02/21 perphenazine 16 mg tablet 16 mg PO BID 04/25/21 05/02/21 metformin 1,000 mg tablet 1,000 mg PO BID 06/17/21 triamcinolone acetonide 0.1 % appl TOPICAL 06/17/21 topical cream Previous Rx's Medication Instructions Recorded pantoprazole 40 mg tablet,delayed 40 mg PO BID #60 tab 04/28/21 release (Protonix) amoxicillin 875 mg-potassium 875 mg PO Q12H #10 tab 05/05/21 clavulanate 125 mg tablet magnesium oxide 400 mg (241.3 mg 400 mg PO BIDPC #60 tab 05/05/21 magnesium) tablet Allergies Allergy/AdvReac Type Severity Reaction Status Date / Time prednisone Allergy Unknown Verified 06/17/21 08:59 Review of Systems Review of Systems: All other systems are reviewed and are negative Constitutional: Reports as per HPI and Reports no additional constitutional complaints Eyes: Reports as per HPI and Reports no additional eye complaints Reports system reviewed and no additional complaints, except as documented Cardiovascular: Reports as per HPI and Reports no additional cardiovascular complaints Respiratory: Reports as per HPI and Reports no additional respiratory complaints Gastrointestinal: Reports as per HPI and Reports no additional gastrointestinal complaints Genitourinary: Reports no additional female genitourinary complaints Musculoskeletal: Reports no additional musculoskeletal complaints Skin/Breast: Reports system reviewed and no additional complaints, except as docu Psychiatric: Reports no additional psychiatric complaints Endocrine: Reports no additional endocrine complaints Hematologic/Lymphatic: Reports no additional hematologic/lymphatic complaints Allergic/Immunologic: Reports no additional allergic/immunologic complaints Reports system reviewed and no additional complaints, except as documented and Reports Abnormal speech present [facility] Past Medical History Medical History SANDIP (acute kidney injury) Aspiration pneumonia COPD (chronic obstructive pulmonary disease) Depression Diabetes Dysphagia Esophagitis with gastritis alcohol syndrome HTN (hypertension) Hyperkalemia Hyperkalemia Hyperlipidemia Internal hemorrhoids Internal hemorrhoids Iron deficiency anemia Iron deficiency anemia Obstructive sleep apnea Paranoia Schizo-affective schizophrenia Surgical History H/O endoscopy Social History Social History Household Members: Other Housing: Other Housing Other:: custodial Do you presently have visiting nurse or other home services: No Unable to assess alcohol history related to: Unknown Alcohol intake: never Patient Tobacco Use Status: Current everyday Tobacco user e-Cigarette/Vaping Use: Currently Using Second Hand Smoke Exposure: No Use of substances other than those prescribed or required for medical reasons: No Substance Use Type: Crack/Cocaine Advance Directives: No Advance Directives Information Provided: Yes service: No Current occupational status: disabled Physical Exam Vital Signs: Vital Signs: Last Vital Signs Temp 98.6 F 07/02/21 12:39 Pulse 89 07/02/21 12:39 Resp 18 07/02/21 12:39 BP 140/89 H 07/02/21 12:39 Pulse Ox 95 07/02/21 12:39 Body Mass Index 26.4 Vital signs have been reviewed as appeared to be correct. Blood pressure normal. Heart rate normal. Respiration rate normal. Temperature normal. Oxygen saturation normal. Appearance: Alert. Oriented X3. No acute distress. Head: Normal external exam. Normocephalic. Atraumatic. No Mohamud signs noted. No raccoon eyes noted Eyes: PERRLA. EOMI. Conjunctiva and sclera normal. Eyelids normal. ENT: TM's Normal. Pharynx normal. Uvula midline. Moist mucous membranes. No trismus noted. No drooling noted. No muffled voice noted. Neck: Normal inspection. Neck supple. FROM. No adenopathy. Thyroid Normal. No meningeal signs. No neck mass noted. CVS: Normal heart rate and rhythm. Heart sound normal. No murmurs noted. Pulses normal throughout. Respiratory: No respiratory distress. Painless inspiration. Breath sounds normal. No wheezes/rales/rhonchi noted. Chest nontender. No accessory muscle usage noted or decreased air movement noted. Abdomen: Soft and nontender. Bowel sounds normal in all 4 quadrants. No distention noted. No organomegaly noted. No visible injury noted. Back: No CVA tenderness. Full range of motion noted. Skin: Skin warm and dry. Normal skin color. Normal skin turgor. No rashes/lesions/lacerations noted. Extremities: No lower extremity edema. Extremities exhibit normal range of motion. Extremities nontender. Neuro: Oriented X 3. Cranial nerve exam: II-XII are grossly intact No motor deficit. No sensory deficit. Reflexes normal. NIH Stroke Scale Internal: Initial- Upon Arrival Level of Consciousness: Alert Level of Consciousness Questions: Answers both questions correctly Level of Consciousness Commands: Performs both tasks correctly Best Gaze: Normal Visual: No visual loss Facial Palsy: Normal Motor Arm (Right): No drift Motor Arm (Left): No drift Motor Leg (Right): No drift Motor Leg (Left): No drift Limb Ataxia: Absent Sensory: Normal Best Language: No aphasia Dysarthia: Normal Extinction and Inattention: No abnormality Score: 0 Course Course Course Narrative: Assessment and plan. 55-year-old male came in for evaluation of hyperglycemia the patient received 1 bag of fluid and 10 units of regular insulin IV, blood glucose went down to 62, patient was able to tolerate p.o. intake. Patient is awake, alert, oriented x3 will discharge to follow-up with PCP. Medical Decision Making Lab Data Lab results reviewed: Yes I reviewed the patient's lab results. Result diagrams: 07/02/21 13:06 07/02/21 13:06 Labs: Lab Results 07/02/21 07/02/21 07/02/21 Range/Units 12:29 13:06 13:06 WBC 5.1 (4.8-10.8) X10*3/uL RBC 4.40 L (4.60-5.80) X10*6/uL Hgb 9.0 L (14.0-18.0) g/dl Hct 31.0 L (42-52) % MCV 70.5 L (80-98) fL MCH 20.5 L (27.0-33.0) pg MCHC 29.0 L (31.0-36.0) g/dl RDW 19.0 H (11.0-16.0) % Plt Count 221 D (160-400) X10*3/uL MPV 10.1 (9.4-12.4) fL Immature Gran % (Auto) 0.2 (0.0-0.4) % Neut % (Auto) 72.9 (45-73) % Lymph % (Auto) 15.8 L (20-40) % [place] % (Auto) 9.5 (2-11) % Eos % (Auto) 0.8 (0-4) % Baso % (Auto) 0.8 (0-2) % Lymph # (Auto) 0.8 L (1.2-4.9) X10*3/uL [place] # (Auto) 0.5 (0.1-1.2) X10*3/uL Eos # (Auto) 0.0 (0.0-0.4) X10*3/uL Baso # (Auto) 0.0 (0.0-0.2) X10*3/uL Abs Immat Gran (auto) 0.01 (0.00-0.03) X10*3/uL Absolute Neuts (auto) 3.7 (2.0-8.3) X10*3/uL Absolute Nucleated RBC 0.000 (0.0-0.012) X10*3/uL Nucleated RBC % (auto) 0.0 (0.0-0.2) /100WBC Sodium 139 (135-145) mmol/L Potassium 4.5 (3.3-5.1) mmol/L Chloride 106 (96-108) mmol/L Carbon Dioxide 26 (22-29) mmol/L Anion Gap 12 (12-20) BUN 20 H (9-16) mg/dL Creatinine 1.04 (0.5-1.4) mg/dL Estim Creat Clear Calc 68.7 Estimated GFR > 60 POC Glucose 334 H (60-115) mg/dL Random Glucose 292 H D (60-115) mg/dL Calcium 9.1 (8.4-10.2) mg/dL Total Bilirubin 0.4 (0.0-1.0) mg/dL Direct Bilirubin < 0.2 (0.0-0.5) mg/dL AST 14 (5-37) U/L ALT 20 (0-40) U/L Alkaline Phosphatase 103 D (39-117) U/L Total Protein 6.2 L (6.5-8.0) g/dL Albumin 3.8 (3.5-5.0) g/dL Lipase 24 (8-78) U/L Urine Color Urine Appearance Urine pH (5.0-8.0) Ur Specific [place] (1.005-1.025) Urine Protein (NEG-TRACE) MG/DL Urine Glucose (UA) (NEG) MG/DL Urine Ketones (NEG) MG/DL Urine Blood (NEG) Urine Nitrite (NEG) Ur Leukocyte Esterase (NEG) Urine RBC (0) /HPF Urine WBC (0-4) /HPF Ur Squamous Epith Cells /LPF Urine Bacteria /LPF 07/02/21 07/02/21 Range/Units 14:39 14:48 WBC (4.8-10.8) X10*3/uL RBC (4.60-5.80) X10*6/uL Hgb (14.0-18.0) g/dl Hct (42-52) % MCV (80-98) fL MCH (27.0-33.0) pg MCHC (31.0-36.0) g/dl RDW (11.0-16.0) % Plt Count (160-400) X10*3/uL MPV (9.4-12.4) fL Immature Gran % (Auto) (0.0-0.4) % Neut % (Auto) (45-73) % Lymph % (Auto) (20-40) % [place] % (Auto) (2-11) % Eos % (Auto) (0-4) % Baso % (Auto) (0-2) % Lymph # (Auto) (1.2-4.9) X10*3/uL [place] # (Auto) (0.1-1.2) X10*3/uL Eos # (Auto) (0.0-0.4) X10*3/uL Baso # (Auto) (0.0-0.2) X10*3/uL Abs Immat Gran (auto) (0.00-0.03) X10*3/uL Absolute Neuts (auto) (2.0-8.3) X10*3/uL Absolute Nucleated RBC (0.0-0.012) X10*3/uL Nucleated RBC % (auto) (0.0-0.2) /100WBC Sodium (135-145) mmol/L Potassium (3.3-5.1) mmol/L Chloride (96-108) mmol/L Carbon Dioxide (22-29) mmol/L Anion Gap (12-20) BUN (9-16) mg/dL Creatinine (0.5-1.4) mg/dL Estim Creat Clear Calc Estimated GFR POC Glucose 62 (60-115) mg/dL Random Glucose (60-115) mg/dL Calcium (8.4-10.2) mg/dL Total Bilirubin (0.0-1.0) mg/dL Direct Bilirubin (0.0-0.5) mg/dL AST (5-37) U/L ALT (0-40) U/L Alkaline Phosphatase (39-117) U/L Total Protein (6.5-8.0) g/dL Albumin (3.5-5.0) g/dL Lipase (8-78) U/L Urine Color YELLOW Urine Appearance CLEAR Urine pH 6.0 (5.0-8.0) Ur Specific [place] 1.010 (1.005-1.025) Urine Protein NEG (NEG-TRACE) MG/DL Urine Glucose (UA) >=1000 H (NEG) MG/DL Urine Ketones NEG (NEG) MG/DL Urine Blood NEG (NEG) Urine Nitrite NEG (NEG) Ur Leukocyte Esterase NEG (NEG) Urine RBC 0 (0) /HPF Urine WBC 0 (0-4) /HPF Ur Squamous Epith Cells NONE /LPF Urine Bacteria NONE /LPF Discharge Plan Discharge Clinical Impression: Hyperglycemia due to type 1 diabetes mellitus Patient Disposition: Home, Self-Care Instructions: Diabetic Hyperglycemia (ED) Prescriptions: No Action clozapine 100 mg tablet 3 tab PO BEDTIME RF: 0 simvastatin 40 mg tablet 40 mg PO BEDTIME RF: 0 benztropine 1 mg tablet 1 tab PO BID RF: 0 budesonide 0.5 mg/2 mL suspension for nebulization 1 vial inhalation BID RF: 0 perphenazine 8 mg tablet 8 mg PO BEDTIME RF: 0 ipratropium-albuterol 0.5 mg-3 mg(2.5 mg base)/3 mL solution for nebulization 3 ml inhalation Q6H PRN (Reason: Wheezing) RF: 0 paroxetine HCl 40 mg tablet 40 mg PO DAILY RF: 0 perphenazine 16 mg tablet 16 mg PO BID RF: 0 Lantus Solostar U-100 Insulin 100 unit/mL (3 mL) insulin pen 40 unit subcut DAILY RF: 0 Invega Sustenna 156 mg/mL syringe 156 mg IM Q28D RF: 0 albuterol sulfate [ProAir HFA] 90 mcg/actuation HFA aerosol inhaler 2 inh inhalation QID PRN (Reason: shortness of breath or wheezing) RF: 0 ferrous sulfate 324 mg (65 mg iron) tablet,delayed release (DR/EC) 324 mg PO BID RF: 0 acetaminophen [Tylenol] 325 mg Tablet 650 mg PO Q6H PRN (Reason: Pain) RF: 0 pantoprazole [Protonix] 40 mg tablet,delayed release (DR/EC) 40 mg PO BID Qty: 60 RF: 0 amoxicillin-pot clavulanate 875-125 mg Tablet 875 mg PO Q12H Qty: 10 RF: 0 magnesium oxide 400 mg (241.3 mg magnesium) Tablet 400 mg PO BIDPC Qty: 60 RF: 0 metformin 1,000 mg tablet 1,000 mg PO BID RF: 0 triamcinolone acetonide 0.1 % cream topical RF: 0 Referrals: Physician,Unknown [Primary Care Provider] - 2 days
[2021-07-02 13:13] LABS: MANUAL DIFF FLAG NO
[2021-07-02 13:26] LABS: Basophils Percent Auto 0.8 % (0-2); Eosinophils Percent Auto 0.8 % (0-4); Imm Gran Abs Auto 0.01 X10*3/uL (0.00-0.03); Imm Gran Pct Auto 0.2 % (0.0-0.4); Lymphocytes Absolute Auto 0.8 X10*3/uL (1.2-4.9); Lymphocytes Percent Auto 15.8 % (20-40); Mean Corpuscular Hemoglobin 20.5 pg (27.0-33.0); Mean Corpuscular Volume 70.5 fL (80-98); Mean Platelet Volume 10.1 fL (9.4-12.4); Monocytes Absolute Auto 0.5 X10*3/uL (0.1-1.2); Monocytes Percent Auto 9.5 % (2-11); Neutrophils Absolute Auto 3.7 X10*3/uL (2.0-8.3); Neutrophils Percent Auto 72.9 % (45-73); Platelet Count 221 X10*3/uL (160-400); White Blood Count 5.1 X10*3/uL (4.8-10.8)
[2021-07-02 13:40] LABS: Alanine Aminotransferase 20 U/L (0-40); Albumin Level 3.8 g/dL (3.5-5.0); Alkaline Phosphatase 103 U/L (39-117); Anion Gap 12 (12-20); Aspartate Amino Transferase 14 U/L (5-37); Bilirubin Direct < 0.2 mg/dL (0.0-0.5); Bilirubin Total 0.4 mg/dL (0.0-1.0); Blood Urea Nitrogen 20 mg/dL (9-16); Calcium 9.1 mg/dL (8.4-10.2); Carbon Dioxide 26 mmol/L (22-29); Chloride 106 mmol/L (96-108); Creatinine Clr Calc Pharmacy 68.7; Estimated Glomerular Filt Rate > 60; Glucose Random 292 mg/dL (60-115); Lipase 24 U/L (8-78); Potassium 4.5 mmol/L (3.3-5.1); Sodium 139 mmol/L (135-145); Total Protein 6.2 g/dL (6.5-8.0)
[2021-07-02] MEDS: Insulin Regular, Human 100 UNIT/ML 3 ML VIAL 10 UNIT IVPUSH (13:43)
[2021-07-02] MEDS: 0.9 % Sodium Chloride 1,000 ML 999 ML IVCONT (13:43)
[2021-07-02 14:46] LABS: Glucose, Whole Blood 62 mg/dL (60-115)
--- NOTE | 2021-07-02 14:50 | PC.NURSE ---
Pt's vs remains stable. Pt's blood sugar 334, pt asymptomatic, iv insulin given. Blood sugar rechecked and was 62, snack provided. Dr. Miller made aware.
[2021-07-02 14:53] LABS: Glucose Urine UA >=1000 MG/DL (NEG); Leukocyte Esterase Urine NEG (NEG); Nitrite Urine NEG (NEG); Urine Blood NEG (NEG); Urine Ketones NEG (NEG); Urine Protein NEG (NEG-TRACE)
[2021-07-02 14:54] LABS: Appearance Urine CLEAR; Color Urine YELLOW
[2021-07-02 15:02] LABS: RBC Urine 0 /HPF (0); WBC Urine 0 /HPF (0-4)
[2021-07-02 15:45] VITALS: BP 127/70; PULSE 95; RESP 18; O2SAT 98
--- NOTE | 2021-07-02 16:01 | PC.NURSE ---
patient poc is 42 ,rn aware patient was given pudding and orange juice .
--- NOTE | 2021-07-02 16:02 | PC.NURSE ---
Pt's blood sugar rechecked 42, snack provided, Dr. Miller made aware. Pt is pureed diet, will contact kitchen to get a pureed meal brought down for pt at this time.
--- NOTE | 2021-07-02 17:11 | PC.NURSE ---
Pt given pureed meal, blood sugar rechecked 134. Dr. Mckeon made aware. Pt will be discharged at this time. This flex o writer operator called skilled nursing and gave report to Evens, the staff member who is on duty at this time. Pt awaiting transportation.
[2021-07-02 17:55] LABS: Glucose, Whole Blood 42 mg/dL (60-115)
[2021-07-02 17:55] LABS: Glucose, Whole Blood 134 mg/dL (60-115)
== END 2021-07-02 18:03 | disposition home or self-care (01) ==
PROVIDERS: Emergency Provider Emergency Medicine
DX: E10.65 Type 1 diabetes mellitus with hyperglycemia (principal); I10 Essential (primary) hypertension; Z79.4 Long term (current) use of insulin; F17.210 Nicotine dependence, cigarettes, uncomplicated
CPT/HCPCS: 36415; 80048; 80076; 81001; 82947; 83690; 85025; 96361; 96374; 99284

== ENCOUNTER 2021-08-03 02:46 | Emergency (ER) | payer OTHER, SELFPAY ==
--- NOTE | ~2021-08-03 | XR_ITS ---
EXAMINATION: XR CHEST CLINICAL INFORMATION: Dyspnea COMPARISON: 05/14/2021 TECHNIQUE: Frontal view of the chest was obtained. FINDINGS: Lung volumes are symmetric. Linear left basilar atelectasis versus scarring is redemonstrated. No new consolidation is seen. No evidence of pneumothorax, pleural effusion, or pulmonary edema. The cardiomediastinal contour is unremarkable. No acute osseous findings are seen. XR/XR chest 1V IMPRESSION: No acute cardiopulmonary findings.
[2021-08-03 02:56] VITALS: BP 120/76; BP 134/85; PULSE 101; PULSE 108; RESP 17; TEMP 36.6; O2SAT 97; O2SAT 98; BMI 26.6
--- NOTE | 2021-08-03 03:05 | ECG_ITS ---
Test Reason : SOB Blood Pressure : / mmHG Vent. Rate : 103 BPM Atrial Rate : 103 BPM P-R Int : 178 ms QRS Dur : 076 ms QT Int : 360 ms P-R-T Axes : 079 079 060 degrees QTc Int : 471 ms Sinus tachycardia Nonspecific ST abnormality Abnormal ECG When compared with ECG of 02-MAY-2021 10:59, No significant change was found Referred By: Generic ED Physician Electronically Signed By:CASH PADILLA
[2021-08-03 03:30] LABS: Basophils Percent Auto 0.5 % (0-2); Eosinophils Absolute Auto 0.2 X10*3/uL (0.0-0.4); Eosinophils Percent Auto 3.4 % (0-4); Hemoglobin 9.9 g/dl (14.0-18.0); Imm Gran Abs Auto 0.02 X10*3/uL (0.00-0.03); Imm Gran Pct Auto 0.3 % (0.0-0.4); Lymphocytes Absolute Auto 1.1 X10*3/uL (1.2-4.9); Lymphocytes Percent Auto 16.6 % (20-40); MANUAL DIFF FLAG NO; Mean Corpuscular HGB Conc 29.1 g/dl (31.0-36.0); Mean Corpuscular Hemoglobin 20.8 pg (27.0-33.0); Mean Corpuscular Volume 71.4 fL (80-98); Mean Platelet Volume 9.6 fL (9.4-12.4); Monocytes Absolute Auto 0.7 X10*3/uL (0.1-1.2); Neutrophils Absolute Auto 4.4 X10*3/uL (2.0-8.3); Neutrophils Percent Auto 68.2 % (45-73); Platelet Count 246 X10*3/uL (160-400); Red Blood Count 4.76 X10*6/uL (4.60-5.80); White Blood Count 6.4 X10*3/uL (4.8-10.8)
[2021-08-03 03:44] LABS: Anion Gap 13 (12-20); Blood Urea Nitrogen 21 mg/dL (9-16); Calcium 8.9 mg/dL (8.4-10.2); Carbon Dioxide 30 mmol/L (22-29); Chloride 105 mmol/L (96-108); Creatinine Clr Calc Pharmacy 72.2; Estimated Glomerular Filt Rate > 60; Glucose Random 129 mg/dL (60-115); Potassium 4.5 mmol/L (3.3-5.1); Sodium 143 mmol/L (135-145)
[2021-08-03 03:52] LABS: B Type Natriuretic Peptide 15 pg/mL (<100); Troponin-I High Sensitivity 3.7 ng/L (<3.5-35.0)
[2021-08-03 03:54] LABS: COVID-19 Test Negative (Negative)
[2021-08-03 04:32] LABS: Appearance Urine CLEAR; Color Urine YELLOW; Glucose Urine UA NEG (NEG); Leukocyte Esterase Urine NEG (NEG); Nitrite Urine NEG (NEG); Specific Gravity - Urine 1.025 (1.005-1.025); UACC Culture Trigger NO; Urine Blood NEG (NEG); Urine Ketones NEG (NEG); Urine Protein TRACE MG/DL (NEG-TRACE)
--- NOTE | 2021-08-03 04:42 | PC.NURSE ---
This pct did a straight catheter on pt and got 300 ml from bladder. Pt tolerated and slept through it. Got pt covered and repants afterewards.
[2021-08-03 05:07] VITALS: BP 106/74; PULSE 102; O2SAT 98
[2021-08-03 05:49] VITALS: PULSE 108; O2SAT 98
--- NOTE | 2021-08-03 05:55 | ED_ITS ---
HPI - General Adult General Chief complaint: Upper Respiratory Symptoms Stated complaint: DIFF BREATHING/N/V Time Seen by Provider: 08/03/21 05:55 Source: patient and EMS Mode of arrival: EMS History of Present Illness HPI narrative: 55-year-old male brought in by EMS and noted to be slow to answer questions, drowsy, per EMS patient had difficulty breathing was 80% on room air and was placed on oxygen and immediately went up to 98%. On questioning the patient he denies any shortness of breath or chest pain or recent cough. Related Data Home Medications Medication Instructions Recorded Confirmed benztropine 1 mg tablet 1 tab PO BID 10/07/20 05/02/21 budesonide 0.5 mg/2 mL suspension 1 vial INHALATION BID 10/07/20 05/02/21 for nebulization clozapine 100 mg tablet 3 tab PO BEDTIME 10/07/20 05/02/21 perphenazine 8 mg tablet 8 mg PO BEDTIME 10/07/20 05/02/21 simvastatin 40 mg tablet 40 mg PO BEDTIME 10/07/20 05/02/21 acetaminophen 325 mg tablet 650 mg PO Q6H PRN 04/25/21 05/02/21 (Tylenol) albuterol sulfate 90 mcg/actuation 2 inh INHALATION QID PRN 04/25/21 05/02/21 aerosol inhaler (ProAir HFA) ferrous sulfate 324 mg (65 mg 324 mg PO BID 04/25/21 05/02/21 iron) tablet,delayed release insulin glargine 100 unit/mL (3 40 unit SUBCUT DAILY 04/25/21 05/02/21 mL) subcutaneous pen (Lantus Solostar U-100 Insulin) ipratropium 0.5 mg-albuterol 3 mg 3 ml INHALATION Q6H PRN 04/25/21 05/02/21 (2.5 mg base)/3 mL nebulization soln paliperidone palmitate 156 mg/mL 156 mg IM Q28D 04/25/21 05/02/21 intramuscular syringe (Invega Sustenna) paroxetine HCl 40 mg tablet 40 mg PO DAILY 04/25/21 05/02/21 perphenazine 16 mg tablet 16 mg PO BID 04/25/21 05/02/21 metformin 1,000 mg tablet 1,000 mg PO BID 06/17/21 triamcinolone acetonide 0.1 % appl TOPICAL 06/17/21 topical cream Previous Rx's Medication Instructions Recorded pantoprazole 40 mg tablet,delayed 40 mg PO BID #60 tab 04/28/21 release (Protonix) amoxicillin 875 mg-potassium 875 mg PO Q12H #10 tab 05/05/21 clavulanate 125 mg tablet magnesium oxide 400 mg (241.3 mg 400 mg PO BIDPC #60 tab 05/05/21 magnesium) tablet Allergies Allergy/AdvReac Type Severity Reaction Status Date / Time prednisone Allergy Unknown Verified 06/17/21 08:59 Review of Systems Review of Systems: Pertinent positives and negatives as stated in HPI 10 point review of systems is otherwise negative. [facility] Past Medical History Source: nursing notes reviewed Medical History SANDIP (acute kidney injury) Aspiration pneumonia COPD (chronic obstructive pulmonary disease) Depression Diabetes Dysphagia Esophagitis with gastritis alcohol syndrome HTN (hypertension) Hyperkalemia Hyperkalemia Hyperlipidemia Internal hemorrhoids Internal hemorrhoids Iron deficiency anemia Iron deficiency anemia Obstructive sleep apnea Paranoia Schizo-affective schizophrenia Surgical History H/O endoscopy Social History Social History Household Members: Other Housing: Other Housing Other:: senior living Do you presently have visiting nurse or other home services: No Unable to assess alcohol history related to: Unknown Alcohol intake: unknown Patient Tobacco Use Status: Current everyday Tobacco user e-Cigarette/Vaping Use: Currently Using Second Hand Smoke Exposure: No Use of substances other than those prescribed or required for medical reasons: Unknown Substance Use Type: Crack/Cocaine Advance Directives: No service: No Current occupational status: disabled Physical Exam Vital Signs: Vital Signs: Last Vital Signs Temp 97.8 F 08/03/21 06:00 Pulse 106 H 08/03/21 06:00 Resp 16 08/03/21 06:00 BP 118/81 08/03/21 06:00 Pulse Ox 99 08/03/21 06:00 Oxygen Flow Rate 2 08/03/21 02:56 Body Mass Index 26.6 VITAL SIGNS: Reviewed. GENERAL: Chronically ill, in no acute distress. HEAD: Normocephalic/atraumatic EYES: PERRLA, EOMI OROPHARYNX: no oral lesions noted, posterior pharynx clear LUNGS: Normal breath sounds. No adventitious sounds or accessory muscle use. SpO2<99> on room air CARDIOVASCULAR: Regular rate and rhythm without noted murmurs ABDOMEN: Soft, non-tender, non-distended with bowel sounds. No rigidity. No guarding. No palpable masses or hernias noted MUSCULOSKELETAL: No tenderness, deformities, or effusions noted on gross inspection. EXTREMITIES: No cyanosis, clubbing or edema. SKIN: Inspection of the skin reveals no rashes NEUROLOGIC: Drowsy but arousable and strength and sensation to light touch were grossly intact x 4. Course Course Course Narrative: 55-year-old male with history and clinical presentation of possible pneumonia, COPD, Review of all investigations negative for acute findings and on re-evaluation patient states that he wishes to go home. Medical Decision Making Lab Data Result diagrams: 08/03/21 03:17 08/03/21 03:17 Labs: Lab Results 08/03/21 08/03/21 08/03/21 Range/Units 03:17 03:17 03:17 WBC 6.4 (4.8-10.8) X10*3/uL RBC 4.76 (4.60-5.80) X10*6/uL Hgb 9.9 L (14.0-18.0) g/dl Hct 34.0 L (42-52) % MCV 71.4 L (80-98) fL MCH 20.8 L (27.0-33.0) pg MCHC 29.1 L (31.0-36.0) g/dl RDW 18.0 H (11.0-16.0) % Plt Count 246 (160-400) X10*3/uL MPV 9.6 (9.4-12.4) fL Immature Gran % (Auto) 0.3 (0.0-0.4) % Neut % (Auto) 68.2 (45-73) % Lymph % (Auto) 16.6 L (20-40) % [place] % (Auto) 11.0 (2-11) % Eos % (Auto) 3.4 (0-4) % Baso % (Auto) 0.5 (0-2) % Lymph # (Auto) 1.1 L (1.2-4.9) X10*3/uL [place] # (Auto) 0.7 (0.1-1.2) X10*3/uL Eos # (Auto) 0.2 (0.0-0.4) X10*3/uL Baso # (Auto) 0.0 (0.0-0.2) X10*3/uL Abs Immat Gran (auto) 0.02 (0.00-0.03) X10*3/uL Absolute Neuts (auto) 4.4 (2.0-8.3) X10*3/uL Absolute Nucleated RBC 0.000 (0.0-0.012) X10*3/uL Nucleated RBC % (auto) 0.0 (0.0-0.2) /100WBC Sodium 143 (135-145) mmol/L Potassium 4.5 (3.3-5.1) mmol/L Chloride 105 (96-108) mmol/L Carbon Dioxide 30 H (22-29) mmol/L Anion Gap 13 (12-20) BUN 21 H (9-16) mg/dL Creatinine 0.99 (0.5-1.4) mg/dL Estim Creat Clear Calc 72.2 Estimated GFR > 60 Random Glucose 129 H D (60-115) mg/dL Calcium 8.9 (8.4-10.2) mg/dL Troponin I High Sens 3.7 D (<3.5-35.0) ng/L B-Natriuretic Peptide 15 (<100) pg/mL Urine Color Urine Appearance Urine pH (5.0-8.0) Ur Specific [place] (1.005-1.025) Urine Protein (NEG-TRACE) MG/DL Urine Glucose (UA) (NEG) MG/DL Urine Ketones (NEG) MG/DL Urine Blood (NEG) Urine Nitrite (NEG) Ur Leukocyte Esterase (NEG) COVID-19 (ANDERS) (Negative) COVID-19 Clin Com 08/03/21 08/03/21 Range/Units 03:34 04:23 WBC (4.8-10.8) X10*3/uL RBC (4.60-5.80) X10*6/uL Hgb (14.0-18.0) g/dl Hct (42-52) % MCV (80-98) fL MCH (27.0-33.0) pg MCHC (31.0-36.0) g/dl RDW (11.0-16.0) % Plt Count (160-400) X10*3/uL MPV (9.4-12.4) fL Immature Gran % (Auto) (0.0-0.4) % Neut % (Auto) (45-73) % Lymph % (Auto) (20-40) % [place] % (Auto) (2-11) % Eos % (Auto) (0-4) % Baso % (Auto) (0-2) % Lymph # (Auto) (1.2-4.9) X10*3/uL [place] # (Auto) (0.1-1.2) X10*3/uL Eos # (Auto) (0.0-0.4) X10*3/uL Baso # (Auto) (0.0-0.2) X10*3/uL Abs Immat Gran (auto) (0.00-0.03) X10*3/uL Absolute Neuts (auto) (2.0-8.3) X10*3/uL Absolute Nucleated RBC (0.0-0.012) X10*3/uL Nucleated RBC % (auto) (0.0-0.2) /100WBC Sodium (135-145) mmol/L Potassium (3.3-5.1) mmol/L Chloride (96-108) mmol/L Carbon Dioxide (22-29) mmol/L Anion Gap (12-20) BUN (9-16) mg/dL Creatinine (0.5-1.4) mg/dL Estim Creat Clear Calc Estimated GFR Random Glucose (60-115) mg/dL Calcium (8.4-10.2) mg/dL Troponin I High Sens (<3.5-35.0) ng/L B-Natriuretic Peptide (<100) pg/mL Urine Color YELLOW Urine Appearance CLEAR Urine pH 6.0 (5.0-8.0) Ur Specific [place] 1.025 (1.005-1.025) Urine Protein TRACE (NEG-TRACE) MG/DL Urine Glucose (UA) NEG (NEG) MG/DL Urine Ketones NEG (NEG) MG/DL Urine Blood NEG (NEG) Urine Nitrite NEG (NEG) Ur Leukocyte Esterase NEG (NEG) COVID-19 (ANDERS) Negative (Negative) COVID-19 Clin Com See Note Discharge Plan Discharge Clinical Impression: Cough, MARA (obstructive sleep apnea) Patient Disposition: Home, Self-Care Instructions: Sleep Apnea (DC) Additional Instructions: 1. Resume all home medications as prescribed. Return to the ER for acute worsening of symptoms. Prescriptions: No Action clozapine 100 mg tablet 3 tab PO BEDTIME RF: 0 simvastatin 40 mg tablet 40 mg PO BEDTIME RF: 0 benztropine 1 mg tablet 1 tab PO BID RF: 0 budesonide 0.5 mg/2 mL suspension for nebulization 1 vial inhalation BID RF: 0 perphenazine 8 mg tablet 8 mg PO BEDTIME RF: 0 ipratropium-albuterol 0.5 mg-3 mg(2.5 mg base)/3 mL solution for nebulization 3 ml inhalation Q6H PRN (Reason: Wheezing) RF: 0 paroxetine HCl 40 mg tablet 40 mg PO DAILY RF: 0 perphenazine 16 mg tablet 16 mg PO BID RF: 0 Lantus Solostar U-100 Insulin 100 unit/mL (3 mL) insulin pen 40 unit subcut DAILY RF: 0 Invega Sustenna 156 mg/mL syringe 156 mg IM Q28D RF: 0 albuterol sulfate [ProAir HFA] 90 mcg/actuation HFA aerosol inhaler 2 inh inhalation QID PRN (Reason: shortness of breath or wheezing) RF: 0 ferrous sulfate 324 mg (65 mg iron) tablet,delayed release (DR/EC) 324 mg PO BID RF: 0 acetaminophen [Tylenol] 325 mg Tablet 650 mg PO Q6H PRN (Reason: Pain) RF: 0 pantoprazole [Protonix] 40 mg tablet,delayed release (DR/EC) 40 mg PO BID Qty: 60 RF: 0 amoxicillin-pot clavulanate 875-125 mg Tablet 875 mg PO Q12H Qty: 10 RF: 0 magnesium oxide 400 mg (241.3 mg magnesium) Tablet 400 mg PO BIDPC Qty: 60 RF: 0 metformin 1,000 mg tablet 1,000 mg PO BID RF: 0 triamcinolone acetonide 0.1 % cream topical RF: 0
[2021-08-03 06:00] VITALS: BP 118/81; PULSE 106; RESP 16; TEMP 36.6; O2SAT 99
[2021-08-03 08:13] VITALS: O2SAT 94
--- NOTE | 2021-08-03 08:13 | PC.NURSE ---
PT AMB TO BR WITH ASSIST. 94PERCENT ON ROOM AIR
== END 2021-08-03 08:59 | disposition home or self-care (01) ==
PROVIDERS: Emergency Provider Student in an Organized Health Care Education/Training Program
DX: R06.02 Shortness of breath (principal); G47.33 Obstructive sleep apnea (adult) (pediatric); R05 Cough; F14.90 Cocaine use, unspecified, uncomplicated; F17.200 Nicotine dependence, unspecified, uncomplicated; Z79.899 Other long term (current) drug therapy; Z71.6 Tobacco abuse counseling; Z20.822 Contact with and (suspected) exposure to COVID-19
CPT/HCPCS: 36415; 71045; 80048; 81003; 83880; 84484; 85025; 87635; 93005; 99284; 99285

== ENCOUNTER 2021-08-09 12:18 | Emergency (ER) | payer OTHER, SELFPAY ==
--- NOTE | ~2021-08-09 | CT_ITS ---
EXAMINATION: CT HEAD WITHOUT CONTRAST CLINICAL INFORMATION: Fall, forehead contusion and vomiting. COMPARISON: CT brain 05/14/2021 TECHNIQUE: Contiguous axial imaging was performed from the skull base to vertex without intravenous administration of contrast. This CT examination was performed using dose optimization techniques as appropriate, variously including the following: *Automated exposure control *Adjustment of mA and/or kV according to patient size (this includes techniques or standardized protocols for targeted exams where dose is matched to indication/reason for exam; i.e. extremities or head) *Use of iterative reconstruction technique DLP: 711 mGy-cm FINDINGS: There is no evidence of acute intracranial hemorrhage or territorial infarction. No abnormal mass effect or midline shift is seen. [place] to white matter differentiation is well preserved. No extra-axial fluid collections are identified. The lateral ventricles are symmetrical in size and mildly enlarged. There is diffuse periventrical hypodensities in both cerebral hemispheres without mass effect. There is anterior midline falx calcification. The osseous structures and soft tissues are normal. There is mucoperiosteal thickening bilateral frontal and ethmoid sinuses. Rest the paranasal sinuses and mastoid air cells are well-aerated. There is a radiopaque foreign body extending from the nasopharynx posteriorly into sphenoid sinus. CT/CT head/brain wo con IMPRESSION: No acute intracranial process seen Radiopaque foreign body/needle seen extending from the nasopharynx posteriorly into the sphenoid sinus. Results were immediately called by phone to Dr. Siddhartha Robbins at 2:37 PM
--- NOTE | ~2021-08-09 | XR_ITS ---
EXAMINATION: XR CHEST CLINICAL INFORMATION: Cough and fever COMPARISON: Chest 08/03/2021 TECHNIQUE: Frontal view of the chest was obtained. FINDINGS: A moreno shaped of bony thorax is noted The lungs are well-expanded with patchy opacity in both lung bases likely infiltrate or atelectasis. The heart size and pulmonary vascularity is normal. No gross bony abnormality seen. XR/XR chest 1V IMPRESSION: Mild patchy density both lung bases question infiltrate versus atelectasis.
[2021-08-09 12:24] VITALS: BP 122/76; BP 138/68; PULSE 115; PULSE 127; RESP 18; TEMP 37.5; O2SAT 92; O2SAT 95; BMI 35.2
--- NOTE | 2021-08-09 12:30 | PC.NURSE ---
Pt alert and oriented. vss. pt brought to ed via ems from assisted. Per ems report pt was eating lunch and started dry heaving and vomiting. Pt is on a puree diet and assisted staff suspected pt aspirated during meal. Pt lethargic on arrival, responds appropriately when spoken to. No c/o pain/sob/headache/dizziness. Pt is a IDD, his poc on arrival to ed was 42, IV Dextrose given, poc after dextrose 131. Pt resting quietly, no apparent distress noted. Will continue to monitor.
--- NOTE | 2021-08-09 12:30 | ECG_ITS ---
Test Reason : ASPERRATION Blood Pressure : / mmHG Vent. Rate : 106 BPM Atrial Rate : 106 BPM P-R Int : 164 ms QRS Dur : 084 ms QT Int : 360 ms P-R-T Axes : 074 082 061 degrees QTc Int : 478 ms Sinus tachycardia Otherwise normal ECG When compared with ECG of 03-AUG-2021 03:21, No significant change was found Referred By: Siddhartha Robbins Electronically Signed By:CASH PADILLA
--- NOTE | 2021-08-09 12:34 | ED.FEVER ---
HPI - Fever General Chief Complaint: General Medical Stated Complaint: N/V,SOB SINCE AM Time Seen by Provider: 08/09/21 12:30 Source: patient, RN notes reviewed and other (prison record) Limitations: altered mental status (Schizophrenia) History of Present Illness HPI Narrative: This is a 55-year-old male sent in from a custodial for vomiting, fever, and shortness of breath. The patient has a history of schizophrenia, diabetes, COPD, dysphagia. Patient has had recent weakness, vomiting, and normal oxygen saturation. Patient denies any headache, chest pain, abdominal pain. He does endorse some cough, and admits falling and bumping his head, denies neck pain Related Data Home Medications Medication Instructions Recorded Confirmed benztropine 1 mg tablet 1 tab PO BID 10/07/20 05/02/21 budesonide 0.5 mg/2 mL suspension 1 vial INHALATION BID 10/07/20 05/02/21 for nebulization clozapine 100 mg tablet 3 tab PO BEDTIME 10/07/20 05/02/21 perphenazine 8 mg tablet 8 mg PO BEDTIME 10/07/20 05/02/21 simvastatin 40 mg tablet 40 mg PO BEDTIME 10/07/20 05/02/21 acetaminophen 325 mg tablet 650 mg PO Q6H PRN 04/25/21 05/02/21 (Tylenol) albuterol sulfate 90 mcg/actuation 2 inh INHALATION QID PRN 04/25/21 05/02/21 aerosol inhaler (ProAir HFA) ferrous sulfate 324 mg (65 mg 324 mg PO BID 04/25/21 05/02/21 iron) tablet,delayed release insulin glargine 100 unit/mL (3 40 unit SUBCUT DAILY 04/25/21 05/02/21 mL) subcutaneous pen (Lantus Solostar U-100 Insulin) ipratropium 0.5 mg-albuterol 3 mg 3 ml INHALATION Q6H PRN 04/25/21 05/02/21 (2.5 mg base)/3 mL nebulization soln paliperidone palmitate 156 mg/mL 156 mg IM Q28D 04/25/21 05/02/21 intramuscular syringe (Invega Sustenna) paroxetine HCl 40 mg tablet 40 mg PO DAILY 04/25/21 05/02/21 perphenazine 16 mg tablet 16 mg PO BID 04/25/21 05/02/21 metformin 1,000 mg tablet 1,000 mg PO BID 06/17/21 triamcinolone acetonide 0.1 % appl TOPICAL 06/17/21 topical cream Previous Rx's Medication Instructions Recorded pantoprazole 40 mg tablet,delayed 40 mg PO BID #60 tab 04/28/21 release (Protonix) amoxicillin 875 mg-potassium 875 mg PO Q12H #10 tab 05/05/21 clavulanate 125 mg tablet magnesium oxide 400 mg (241.3 mg 400 mg PO BIDPC #60 tab 05/05/21 magnesium) tablet Allergies Allergy/AdvReac Type Severity Reaction Status Date / Time prednisone Allergy Unknown Verified 06/17/21 08:59 Review of Systems Review of Systems: Yes Unobtainable due to mental status Constitutional: Constitutional: Reports fever(s) Eyes: Eyes: Reports no additional eye complaints Cardiovascular: Cardiovascular: Reports no additional cardiovascular complaints and Reports dyspnea Respiratory: Respiratory: Reports cough and Reports dyspnea Gastrointestinal: Gastrointestinal: Reports vomiting Neurologic: Denies Sensory deficit (Neuro) [facility] Past Medical History Medical History SANDIP (acute kidney injury) Aspiration pneumonia COPD (chronic obstructive pulmonary disease) Depression Diabetes Dysphagia Esophagitis with gastritis alcohol syndrome HTN (hypertension) Hyperkalemia Hyperkalemia Hyperlipidemia Internal hemorrhoids Internal hemorrhoids Iron deficiency anemia Iron deficiency anemia Obstructive sleep apnea Paranoia Schizo-affective schizophrenia Surgical History H/O endoscopy Social History Social History Household Members: Other Housing: Other Housing Other:: custodial Do you presently have visiting nurse or other home services: No Unable to assess alcohol history related to: Unknown Alcohol intake: unknown Patient Tobacco Use Status: Current everyday Tobacco user e-Cigarette/Vaping Use: Currently Using Second Hand Smoke Exposure: No Substance Use Type: Crack/Cocaine Advance Directives: Yes Advance Directives Information Provided: No Advance Directives on File: No service: No Current occupational status: disabled Physical Exam Vital Signs: Vital Signs: Last Vital Signs Temp 98.9 F 08/09/21 14:00 Pulse 93 08/09/21 14:00 Resp 17 08/09/21 14:00 BP 107/71 08/09/21 14:00 Pulse Ox 95 08/09/21 14:00 Body Mass Index 35.2 Const: Other: Patient is slumped over, appears lethargic General: cooperative, no acute distress and alert Orientation/consciousness: patient oriented x3 HENMT: Head: Yes normal to inspection Eyes: General: appearance normal, both eyes and all related structures Eyelids: Yes eyelids normal Conjunctivae: conjunctivae normal Pupils: Equal, round and reactive pupils present Neck: Neck: Yes normal visual inspection and Yes supple Chest: Chest palpation & inspection: normal inspection of the chest Resp: Effort & Inspection: normal respiratory effort Auscultation: clear to auscultation bilaterally (Somewhat difficult to assess due to presence of clothes and sweatshirt) Cardio: Rate: regular rate Rhythm: regular rhythm Heart sounds: S1 normal heart sound present, S2 normal heart sound present, no gallops, no murmurs and no rubs GI: Palpation (GI): Soft to palpation, nontender and Other GI palpation findings present (Non-distended) Auscultation: normal bowel sounds Skin: General skin exam: no rashes or lesions noted Neuro: General: patient oriented x3, no focal motor deficits and CN's II-XI intact bilaterally Cranial nerves: Yes Equal, round and reactive pupils present Cognition (Neuro): normal cognition Motor exam (neuro): 5/5 motor strength present throughout Sensory Exam: No Sensory deficit (Neuro) Extrem: General: Yes normal to inspection and Yes no pedal edema Psych: Appearance: grossly normal Affect: normal affect MDM - Fever MDM Narrative Medical decision making narrative: Patient sent in from custodial for possible aspiration pneumonia, had fever, low oxygen saturation, vomiting. Patient did have small abrasion on his forehead and said he had fallen, although he was also hypoglycemic and confused at the time. CT scan did show incidental finding of a sewing needle extending from the nasopharynx into the sphenoid sinus, almost into the cranium. Patient was hypoglycemic and confused initially, was given D50 1 amp IV and had improvement in his mental status. Chest x-ray showed possible lower lobe of infiltrates and the patient was started on Rocephin and Flagyl IV for possible aspiration pneumonia. Patient is being transferred to [facility], Dr. Kaminski and he accepted, the patient is going ER to ER so he can have ENT evaluation urgently. Patient himself had no recall of how the needle might have gotten in his nose Lab Data Attestation: I reviewed the patient's lab results. Result diagrams: 08/09/21 13:43 Labs: Lab Results 08/09/21 08/09/21 08/09/21 Range/Units 12:43 13:43 13:43 Sodium 140 (135-145) mmol/L Potassium 4.3 (3.3-5.1) mmol/L Chloride 104 (96-108) mmol/L Carbon Dioxide 29 (22-29) mmol/L Anion Gap 11 L (12-20) BUN 15 (9-16) mg/dL Creatinine 0.99 (0.5-1.4) mg/dL Estim Creat Clear Calc 76.4 Estimated GFR > 60 POC Glucose 42 L* (60-115) mg/dL Random Glucose 181 H D (60-115) mg/dL Lactic Acid 1.6 (0.5-2.0) mmol/L Calcium 9.0 (8.4-10.2) mg/dL Total Bilirubin 0.5 (0.0-1.0) mg/dL AST 17 (5-37) U/L ALT 16 (0-40) U/L Alkaline Phosphatase 94 (39-117) U/L Troponin I High Sens (<3.5-35.0) ng/L Total Protein 6.2 L (6.5-8.0) g/dL Albumin 3.8 (3.5-5.0) g/dL COVID-19 (ANDERS) (Negative) COVID-19 Clin Com 08/09/21 08/09/21 08/09/21 Range/Units 13:43 13:43 15:03 Sodium (135-145) mmol/L Potassium (3.3-5.1) mmol/L Chloride (96-108) mmol/L Carbon Dioxide (22-29) mmol/L Anion Gap (12-20) BUN (9-16) mg/dL Creatinine (0.5-1.4) mg/dL Estim Creat Clear Calc Estimated GFR POC Glucose 131 H (60-115) mg/dL Random Glucose (60-115) mg/dL Lactic Acid (0.5-2.0) mmol/L Calcium (8.4-10.2) mg/dL Total Bilirubin (0.0-1.0) mg/dL AST (5-37) U/L ALT (0-40) U/L Alkaline Phosphatase (39-117) U/L Troponin I High Sens 8.4 D (<3.5-35.0) ng/L Total Protein (6.5-8.0) g/dL Albumin (3.5-5.0) g/dL COVID-19 (ANDERS) Negative (Negative) COVID-19 Clin Com See Note Imaging Data Chest x-ray: Radiologist's impression: MPRESSION: Mild patchy density both lung bases question infiltrate versus atelectasis. ? CT brain: Radiologist's impression: IMPRESSION: No acute intracranial process seen ? Radiopaque foreign body/needle seen extending from the nasopharynx posteriorly into the sphenoid sinus. ? ECG Data ECG #1: Attestation: I personally reviewed and interpreted this ECG as follows: ECG interpretation date: 08/09/21 ECG interpretation time: 14:29 Interpretation: Sinus rhythm with a rate of 106. No ST elevation or depression. Normal QRS axis. Discharge Plan Discharge Clinical Impression: Hypoglycemia, Pneumonia, Foreign body in nasal sinus Patient Disposition: Xfer [facility] Hospital Transfer Details: [facility] ER Prescriptions: No Action clozapine 100 mg tablet 3 tab PO BEDTIME RF: 0 simvastatin 40 mg tablet 40 mg PO BEDTIME RF: 0 benztropine 1 mg tablet 1 tab PO BID RF: 0 budesonide 0.5 mg/2 mL suspension for nebulization 1 vial inhalation BID RF: 0 perphenazine 8 mg tablet 8 mg PO BEDTIME RF: 0 ipratropium-albuterol 0.5 mg-3 mg(2.5 mg base)/3 mL solution for nebulization 3 ml inhalation Q6H PRN (Reason: Wheezing) RF: 0 paroxetine HCl 40 mg tablet 40 mg PO DAILY RF: 0 perphenazine 16 mg tablet 16 mg PO BID RF: 0 Lantus Solostar U-100 Insulin 100 unit/mL (3 mL) insulin pen 40 unit subcut DAILY RF: 0 Invega Sustenna 156 mg/mL syringe 156 mg IM Q28D RF: 0 albuterol sulfate [ProAir HFA] 90 mcg/actuation HFA aerosol inhaler 2 inh inhalation QID PRN (Reason: shortness of breath or wheezing) RF: 0 ferrous sulfate 324 mg (65 mg iron) tablet,delayed release (DR/EC) 324 mg PO BID RF: 0 acetaminophen [Tylenol] 325 mg Tablet 650 mg PO Q6H PRN (Reason: Pain) RF: 0 pantoprazole [Protonix] 40 mg tablet,delayed release (DR/EC) 40 mg PO BID Qty: 60 RF: 0 amoxicillin-pot clavulanate 875-125 mg Tablet 875 mg PO Q12H Qty: 10 RF: 0 magnesium oxide 400 mg (241.3 mg magnesium) Tablet 400 mg PO BIDPC Qty: 60 RF: 0 metformin 1,000 mg tablet 1,000 mg PO BID RF: 0 triamcinolone acetonide 0.1 % cream topical RF: 0
[2021-08-09] MEDS: Dextrose 5 % and 0.45 % NaCl 1,000 ML 125 ML IVCONT (13:14)
[2021-08-09] MEDS: Acetaminophen Oral Liquid 650 MG/20.3 ML SOLUTION PO (13:36)
[2021-08-09] MEDS: 0.9 % Sodium Chloride 1,000 ML 999 ML IV (13:55)
[2021-08-09 14:00] VITALS: BP 107/71; PULSE 93; RESP 17; TEMP 37.2; O2SAT 95
--- NOTE | 2021-08-09 14:00 | PC.NURSE ---
Pt had head ct done, ct showed needle in his nostril. Pt will be transferred to [facility] for further evaluation. Pt denies pain/sob/difficultly breathing. vss, O2 sat 95-97% r/a. Pt awaiting ambulance for transfer.
[2021-08-09 14:01] LABS: Lactic Acid 1.6 mmol/L (0.5-2.0)
[2021-08-09 14:06] LABS: COVID-19 Test Negative (Negative); IDNOW Serial# 9DD0AD1C
[2021-08-09 14:07] LABS: Alanine Aminotransferase 16 U/L (0-40); Albumin Level 3.8 g/dL (3.5-5.0); Alkaline Phosphatase 94 U/L (39-117); Anion Gap 11 (12-20); Aspartate Amino Transferase 17 U/L (5-37); Bilirubin Total 0.5 mg/dL (0.0-1.0); Blood Urea Nitrogen 15 mg/dL (9-16); Carbon Dioxide 29 mmol/L (22-29); Chloride 104 mmol/L (96-108); Creatinine Clr Calc Pharmacy 76.4; Estimated Glomerular Filt Rate > 60; Glucose Random 181 mg/dL (60-115); Potassium 4.3 mmol/L (3.3-5.1); Sodium 140 mmol/L (135-145); Total Protein 6.2 g/dL (6.5-8.0)
[2021-08-09 14:14] LABS: Troponin-I High Sensitivity 8.4 ng/L (<3.5-35.0)
--- NOTE | 2021-08-09 14:43 | PC.NURSE ---
@[phone] DR FOSTER REQUEST CALL OUT TO [facility] PT TX LINE MARYLU ANSWERS, TAKES PT NFO AND ASKS TO SPEAK WITH DR CRISTIAN FOSTER TAKES OVER CALL RIGHT AWAY
--- NOTE | 2021-08-09 14:52 | PC.NURSE ---
DR FOWLER FROM ENT @ [facility] CALLS BACK AT THIS TIME
[2021-08-09] MEDS: cefTRIAXone sodium 1 GM in 0.9 % Sodium Chloride 50 ML IV (15:24)
[2021-08-09 15:41] LABS: Glucose, Whole Blood 131 mg/dL (60-115)
[2021-08-09 15:41] LABS: Glucose, Whole Blood 42 mg/dL (60-115)
== END 2021-08-09 15:30 | disposition short-term general hospital (02) ==
PROVIDERS: Emergency Provider Emergency Medicine
DX: J18.9 Pneumonia, unspecified organism (principal); R50.9 Fever, unspecified; R06.02 Shortness of breath; R00.0 Tachycardia, unspecified; F11.90 Opioid use, unspecified, uncomplicated; E11.649 Type 2 diabetes mellitus with hypoglycemia without coma; J44.9 Chronic obstructive pulmonary disease, unspecified; T17.0XXA Foreign body in nasal sinus, initial encounter; J34.89 Other specified disorders of nose and nasal sinuses; F17.200 Nicotine dependence, unspecified, uncomplicated; Z20.822 Contact with and (suspected) exposure to COVID-19; Z79.899 Other long term (current) drug therapy; Z71.6 Tobacco abuse counseling; Z79.4 Long term (current) use of insulin; X58.XXXA Exposure to other specified factors, initial encounter; Y93.9 Activity, unspecified; Y92.9 Unspecified place or not applicable; Y99.9 Unspecified external cause status
CPT/HCPCS: 36415; 70450; 71045; 80053; 82947; 83605; 84484; 87040; 87635; 93005; 96361; 96365; 96375; 99285; J0696

== ENCOUNTER 2021-08-24 18:22 | Emergency (ER) | payer OTHER, SELFPAY ==
--- NOTE | ~2021-08-24 | XR_ITS ---
EXAMINATION: XR CHEST CLINICAL INFORMATION: Left lower lobe infiltrate. History of cough. COMPARISON: Chest radiograph dated from 08/09/2021. TECHNIQUE: AP view of the chest was obtained. FINDINGS: Unchanged appearance of the cardiomediastinal silhouette. Slightly decreased interstitial prominence with redemonstration of similar streaky opacities in the mid to lower lobes. No new focal airspace disease. No pleural effusion or pneumothorax. No acute osseous abnormalities. XR/XR chest 1V IMPRESSION: Unchanged platelike/linear opacities bilaterally likely representing subsegmental atelectasis or parenchymal scarring. No new focal airspace opacities.
[2021-08-24 18:32] VITALS: BP 154/104; PULSE 105; O2SAT 96; BMI 26.7
--- NOTE | 2021-08-24 18:34 | ED.GENADULT ---
HPI - General Adult General Chief complaint: Headache Stated complaint: FLU LIKE, HEADACHE, WEAKNESS Time Seen by Provider: 08/24/21 18:32 Source: patient and old records reviewed Mode of arrival: EMS History of Present Illness HPI narrative: Patient has a TBI mentally challenged sent from half-way is patient has been coughing a lot with history of aspiration pneumonia to confirm about pneumonia also patient complaining of slight headache no nausea no vomiting Related Data Home Medications Medication Instructions Recorded Confirmed benztropine 1 mg tablet 1 tab PO BID 10/07/20 05/02/21 budesonide 0.5 mg/2 mL suspension 1 vial INHALATION BID 10/07/20 05/02/21 for nebulization clozapine 100 mg tablet 3 tab PO BEDTIME 10/07/20 05/02/21 perphenazine 8 mg tablet 8 mg PO BEDTIME 10/07/20 05/02/21 simvastatin 40 mg tablet 40 mg PO BEDTIME 10/07/20 05/02/21 acetaminophen 325 mg tablet 650 mg PO Q6H PRN 04/25/21 05/02/21 (Tylenol) albuterol sulfate 90 mcg/actuation 2 inh INHALATION QID PRN 04/25/21 05/02/21 aerosol inhaler (ProAir HFA) ferrous sulfate 324 mg (65 mg 324 mg PO BID 04/25/21 05/02/21 iron) tablet,delayed release insulin glargine 100 unit/mL (3 40 unit SUBCUT DAILY 04/25/21 05/02/21 mL) subcutaneous pen (Lantus Solostar U-100 Insulin) ipratropium 0.5 mg-albuterol 3 mg 3 ml INHALATION Q6H PRN 04/25/21 05/02/21 (2.5 mg base)/3 mL nebulization soln paliperidone palmitate 156 mg/mL 156 mg IM Q28D 04/25/21 05/02/21 intramuscular syringe (Invega Sustenna) paroxetine HCl 40 mg tablet 40 mg PO DAILY 04/25/21 05/02/21 perphenazine 16 mg tablet 16 mg PO BID 04/25/21 05/02/21 metformin 1,000 mg tablet 1,000 mg PO BID 06/17/21 triamcinolone acetonide 0.1 % appl TOPICAL 06/17/21 topical cream Previous Rx's Medication Instructions Recorded pantoprazole 40 mg tablet,delayed 40 mg PO BID #60 tab 04/28/21 release (Protonix) amoxicillin 875 mg-potassium 875 mg PO Q12H #10 tab 05/05/21 clavulanate 125 mg tablet magnesium oxide 400 mg (241.3 mg 400 mg PO BIDPC #60 tab 05/05/21 magnesium) tablet amoxicillin 875 mg-potassium 1 tab PO BID #20 tab 08/24/21 clavulanate 125 mg tablet (Augmentin) Allergies Allergy/AdvReac Type Severity Reaction Status Date / Time prednisone Allergy Unknown Verified 06/17/21 08:59 Review of Systems Review of Systems: Yes all other systems are reviewed and are negative [facility] Past Medical History Medical History SANDIP (acute kidney injury) Aspiration pneumonia COPD (chronic obstructive pulmonary disease) Depression Diabetes Dysphagia Esophagitis with gastritis alcohol syndrome HTN (hypertension) Hyperkalemia Hyperkalemia Hyperlipidemia Internal hemorrhoids Internal hemorrhoids Iron deficiency anemia Iron deficiency anemia Obstructive sleep apnea Paranoia Schizo-affective schizophrenia Surgical History H/O endoscopy Social History Social History Household Members: Other Housing: Other Housing Other:: half-way Do you presently have visiting nurse or other home services: No Unable to assess alcohol history related to: Unknown Alcohol intake: never Patient Tobacco Use Status: Current everyday Tobacco user e-Cigarette/Vaping Use: Currently Using Second Hand Smoke Exposure: No Use of substances other than those prescribed or required for medical reasons: No Substance Use Type: Crack/Cocaine Advance Directives: No service: No Current occupational status: disabled Physical Exam Vital Signs: Vital Signs: Last Vital Signs Temp 98.3 F 08/24/21 20:51 Pulse 99 08/24/21 20:51 Resp 20 08/24/21 20:51 BP 153/90 H 08/24/21 20:51 Pulse Ox 97 08/24/21 20:51 Body Mass Index 26.7 Appearance: Alert. Oriented X2 mentally challenged No acute distress. Eyes: No pallor or icterus ENT: Pharynx normal. Oral Mucosa moist Neck: Normal inspection. Neck supple. CVS: Normal heart rate and rhythm. Pulses normal. Respiratory: No respiratory distress. Equal air entry bilateral, rales left lower lobe++ Abdomen: Soft and nontender. Bowel sounds are present, no mass palpable, no CVA tenderness Skin: Skin warm and dry. Normal skin color. Normal skin turgor. Extremities: No lower extremity edema. No calf tenderness Neuro: Oriented X 3. No motor deficit. Medical Decision Making MDM Narrative Medical decision making narrative: Patient with recurrent aspiration pneumonia clinically patient has some crackles in the lung bases although chest x-ray negative WBC count negative will discharge patient home on Augmentin was given 1 dose of Zosyn in the ER Lab Data Lab results reviewed: Yes I reviewed the patient's lab results. Result diagrams: 08/24/21 19:20 08/24/21 19:41 Labs: Lab Results 08/24/21 08/24/21 08/24/21 Range/Units 19:18 19:19 19:20 WBC 5.6 (4.8-10.8) X10*3/uL RBC 4.51 L (4.60-5.80) X10*6/uL Hgb 9.6 L (14.0-18.0) g/dl Hct 32.4 L (42-52) % MCV 71.8 L (80-98) fL MCH 21.3 L (27.0-33.0) pg MCHC 29.6 L (31.0-36.0) g/dl RDW 18.2 H (11.0-16.0) % Plt Count 305 (160-400) X10*3/uL MPV 10.2 (9.4-12.4) fL Immature Gran % (Auto) 0.4 (0.0-0.4) % Neut % (Auto) 64.8 (45-73) % Lymph % (Auto) 21.8 (20-40) % [place] % (Auto) 11.0 (2-11) % Eos % (Auto) 1.3 (0-4) % Baso % (Auto) 0.7 (0-2) % Lymph # (Auto) 1.2 (1.2-4.9) X10*3/uL [place] # (Auto) 0.6 (0.1-1.2) X10*3/uL Eos # (Auto) 0.1 (0.0-0.4) X10*3/uL Baso # (Auto) 0.0 (0.0-0.2) X10*3/uL Abs Immat Gran (auto) 0.02 (0.00-0.03) X10*3/uL Absolute Neuts (auto) 3.6 (2.0-8.3) X10*3/uL Absolute Nucleated RBC 0.000 (0.0-0.012) X10*3/uL Nucleated RBC % (auto) 0.0 (0.0-0.2) /100WBC Sodium (135-145) mmol/L Potassium (3.3-5.1) mmol/L Chloride (96-108) mmol/L Carbon Dioxide (22-29) mmol/L Anion Gap (12-20) BUN (9-16) mg/dL Creatinine (0.5-1.4) mg/dL Estim Creat Clear Calc Estimated GFR Random Glucose (60-115) mg/dL Lactic Acid 2.1 H* (0.5-2.0) mmol/L Lactic Acid Fup @ 2Hr (0.5-2.0) mmol/L Calcium (8.4-10.2) mg/dL COVID-19 ([facility]) Negative (Negative) COVID-19 Clin Com See Note 08/24/21 08/24/21 Range/Units 19:41 21:34 WBC (4.8-10.8) X10*3/uL RBC (4.60-5.80) X10*6/uL Hgb (14.0-18.0) g/dl Hct (42-52) % MCV (80-98) fL MCH (27.0-33.0) pg MCHC (31.0-36.0) g/dl RDW (11.0-16.0) % Plt Count (160-400) X10*3/uL MPV (9.4-12.4) fL Immature Gran % (Auto) (0.0-0.4) % Neut % (Auto) (45-73) % Lymph % (Auto) (20-40) % [place] % (Auto) (2-11) % Eos % (Auto) (0-4) % Baso % (Auto) (0-2) % Lymph # (Auto) (1.2-4.9) X10*3/uL [place] # (Auto) (0.1-1.2) X10*3/uL Eos # (Auto) (0.0-0.4) X10*3/uL Baso # (Auto) (0.0-0.2) X10*3/uL Abs Immat Gran (auto) (0.00-0.03) X10*3/uL Absolute Neuts (auto) (2.0-8.3) X10*3/uL Absolute Nucleated RBC (0.0-0.012) X10*3/uL Nucleated RBC % (auto) (0.0-0.2) /100WBC Sodium 139 (135-145) mmol/L Potassium 4.6 (3.3-5.1) mmol/L Chloride 103 (96-108) mmol/L Carbon Dioxide 30 H (22-29) mmol/L Anion Gap 11 L (12-20) BUN 17 H (9-16) mg/dL Creatinine 1.13 (0.5-1.4) mg/dL Estim Creat Clear Calc 63.3 Estimated GFR > 60 Random Glucose 234 H (60-115) mg/dL Lactic Acid (0.5-2.0) mmol/L Lactic Acid Fup @ 2Hr 1.4 (0.5-2.0) mmol/L Calcium 9.2 (8.4-10.2) mg/dL COVID-19 ([facility]) (Negative) COVID-19 Clin Com Discharge Plan Discharge Clinical Impression: Bronchitis Patient Disposition: Home, Self-Care Instructions: Chronic Bronchitis (ED) Additional Instructions: Diet precautions as advised to avoid aspiration pneumonia Antibiotic as prescribed Prescriptions: New amoxicillin-pot clavulanate [Augmentin] 875-125 mg tablet 1 tab PO BID Qty: 20 RF: 0 No Action clozapine 100 mg tablet 3 tab PO BEDTIME RF: 0 simvastatin 40 mg tablet 40 mg PO BEDTIME RF: 0 benztropine 1 mg tablet 1 tab PO BID RF: 0 budesonide 0.5 mg/2 mL suspension for nebulization 1 vial inhalation BID RF: 0 perphenazine 8 mg tablet 8 mg PO BEDTIME RF: 0 ipratropium-albuterol 0.5 mg-3 mg(2.5 mg base)/3 mL solution for nebulization 3 ml inhalation Q6H PRN (Reason: Wheezing) RF: 0 paroxetine HCl 40 mg tablet 40 mg PO DAILY RF: 0 perphenazine 16 mg tablet 16 mg PO BID RF: 0 Lantus Solostar U-100 Insulin 100 unit/mL (3 mL) insulin pen 40 unit subcut DAILY RF: 0 Invega Sustenna 156 mg/mL syringe 156 mg IM Q28D RF: 0 albuterol sulfate [ProAir HFA] 90 mcg/actuation HFA aerosol inhaler 2 inh inhalation QID PRN (Reason: shortness of breath or wheezing) RF: 0 ferrous sulfate 324 mg (65 mg iron) tablet,delayed release (DR/EC) 324 mg PO BID RF: 0 acetaminophen [Tylenol] 325 mg Tablet 650 mg PO Q6H PRN (Reason: Pain) RF: 0 pantoprazole [Protonix] 40 mg tablet,delayed release (DR/EC) 40 mg PO BID Qty: 60 RF: 0 amoxicillin-pot clavulanate 875-125 mg Tablet 875 mg PO Q12H Qty: 10 RF: 0 magnesium oxide 400 mg (241.3 mg magnesium) Tablet 400 mg PO BIDPC Qty: 60 RF: 0 metformin 1,000 mg tablet 1,000 mg PO BID RF: 0 triamcinolone acetonide 0.1 % cream topical RF: 0 Interventions: ED Discharge Assessment Last Done: 08/24/21 22:27 Discharge Date/Time: 08/24/21 22:28
[2021-08-24 18:39] VITALS: BP 145/88; PULSE 101; RESP 22; TEMP 37.3; O2SAT 97
[2021-08-24 19:27] LABS: MANUAL DIFF FLAG NO
[2021-08-24 19:29] LABS: Basophils Percent Auto 0.7 % (0-2); Eosinophils Absolute Auto 0.1 X10*3/uL (0.0-0.4); Eosinophils Percent Auto 1.3 % (0-4); Hematocrit 32.4 % (42-52); Hemoglobin 9.6 g/dl (14.0-18.0); Imm Gran Abs Auto 0.02 X10*3/uL (0.00-0.03); Imm Gran Pct Auto 0.4 % (0.0-0.4); Lymphocytes Absolute Auto 1.2 X10*3/uL (1.2-4.9); Lymphocytes Percent Auto 21.8 % (20-40); Mean Corpuscular HGB Conc 29.6 g/dl (31.0-36.0); Mean Corpuscular Hemoglobin 21.3 pg (27.0-33.0); Mean Corpuscular Volume 71.8 fL (80-98); Mean Platelet Volume 10.2 fL (9.4-12.4); Monocytes Absolute Auto 0.6 X10*3/uL (0.1-1.2); Neutrophils Absolute Auto 3.6 X10*3/uL (2.0-8.3); Neutrophils Percent Auto 64.8 % (45-73); Platelet Count 305 X10*3/uL (160-400); Red Blood Count 4.51 X10*6/uL (4.60-5.80); Red Cell Distribution Width 18.2 % (11.0-16.0); White Blood Count 5.6 X10*3/uL (4.8-10.8)
[2021-08-24 19:45] LABS: COVID-19 Test Negative (Negative); IDNOW Serial# 9DD0AD1C
[2021-08-24 19:47] LABS: Lactic Acid 2.1 mmol/L (0.5-2.0)
[2021-08-24 20:07] LABS: Anion Gap 11 (12-20); Blood Urea Nitrogen 17 mg/dL (9-16); Calcium 9.2 mg/dL (8.4-10.2); Carbon Dioxide 30 mmol/L (22-29); Chloride 103 mmol/L (96-108); Creatinine Clr Calc Pharmacy 63.3; Estimated Glomerular Filt Rate > 60; Glucose Random 234 mg/dL (60-115); Potassium 4.6 mmol/L (3.3-5.1); Sodium 139 mmol/L (135-145)
[2021-08-24 20:51] VITALS: BP 153/90; PULSE 99; RESP 20; TEMP 36.8; O2SAT 97
[2021-08-24] MEDS: Piperacillin Sodium/Tazobactam 3.375 GM in 0.9 % Sodium Chloride 50 ML IV (20:51)
[2021-08-24 21:24] LABS: Reflex Lactate? Lactic Acid Added
[2021-08-24 21:47] LABS: ~Lactic Acid-LAB USE ONLY 1.4 mmol/L (0.5-2.0)
== END 2021-08-24 22:28 | disposition home or self-care (01) ==
PROVIDERS: Emergency Provider Internal Medicine; PCP Nurse Practitioner Family
DX: J40 Bronchitis, not specified as acute or chronic (principal); R51.9 Headache, unspecified; J44.9 Chronic obstructive pulmonary disease, unspecified; E11.9 Type 2 diabetes mellitus without complications; I10 Essential (primary) hypertension; Z79.4 Long term (current) use of insulin; Z79.899 Other long term (current) drug therapy; Z20.822 Contact with and (suspected) exposure to COVID-19; Z87.820 Personal history of traumatic brain injury
CPT/HCPCS: 36415; 71045; 80048; 83605; 85025; 87040; 87635; 96365; 99284; J2543

== ENCOUNTER 2021-09-28 09:46 | Inpatient (IN) | payer OTHER, SELFPAY ==
[2021-09-28] VITALS (18 sets, daily range): BP systolic 96–163; BP diastolic 61–94; PULSE 77–130; RESP 16–34; TEMP 36–39.9; O2SAT 89–100; BMI 25.7
--- NOTE | ~2021-09-28 | CT_ITS ---
EXAMINATION: CT ABDOMEN AND PELVIS WITH CONTRAST CLINICAL INFORMATION: Distended abdomen with question of obstruction COMPARISON: None TECHNIQUE: Multidetector volumetric images were obtained from the superior aspect of the liver through the pubic symphysis following administration 85 mL of Omnipaque 350 intravenous contrast. Sagittal and coronal reformatted images were obtained on the technologist's workstation. Oral contrast: No This CT examination was performed using dose optimization techniques as appropriate, variously including the following: *Automated exposure control *Adjustment of mA and/or kV according to patient size (this includes techniques or standardized protocols for targeted exams where dose is matched to indication/reason for exam; i.e. extremities or head) *Use of iterative reconstruction technique DLP: 947 mGy-cm FINDINGS: LUNG BASES: Infiltrates present in the right lung (see CT of chest report same day). LIVER, GALLBLADDER, AND BILIARY TREE: The liver is normal in size, shape, and attenuation. No focal hepatic lesion or biliary ductal dilatation is present. The gallbladder is unremarkable with no evidence of radiopaque gallstones, gallbladder wall thickening, or obvious pericholecystic inflammatory changes. No ascites is present. PANCREAS: Unremarkable. SPLEEN: There are is splenomegaly with the spleen measuring 14.8 cm in greatest dimension. ADRENAL GLANDS: Unremarkable. KIDNEYS AND URETERS: The kidneys are normal in size, shape, and attenuation. There is mild bilateral pelvocaliectasis with mildly dilated ureters but no obstructing stones or masses. Appearances are fairly similar to those noted on the 05/02/2021 study. No hydronephrosis, hydroureter, or calculi seen. No perinephric stranding. BLADDER: The bladder is very distended measuring 14 cm in greatest cephalocaudad dimension. GASTROINTESTINAL TRACT: The small and large bowel are unremarkable. The appendix is unremarkable. ABDOMINAL WALL: No significant hernia is appreciated. Mild diastases of the rectus muscles LYMPH NODES: No retroperitoneal lymphadenopathy. VASCULAR: Calcific plaque seen in the aorta and iliofemoral vessels. No aneurysm. PELVIC VISCERA: A TURP defect is again seen within the prostate. OSSEOUS STRUCTURES: Unremarkable. CT/CT abdomen pelvis w con IMPRESSION: 1. No bowel obstruction is seen. No ascites is seen. A cause for the patient's abdominal distention is not seen. 2. Incidental note made of right lung infiltrate, splenomegaly, bilateral pelvocaliectasis unchanged, dilated bladder and changes of TURP in the prostate
--- NOTE | ~2021-09-28 | CT_ITS ---
EXAMINATION: CT HEAD WITHOUT CONTRAST CLINICAL INFORMATION: Altered mental status. COMPARISON: Most recent prior CT of the head done on 08/09/2021. TECHNIQUE: Contiguous axial imaging was performed from the skull base to vertex without intravenous administration of contrast. This CT examination was performed using dose optimization techniques as appropriate, variously including the following: *Automated exposure control *Adjustment of mA and/or kV according to patient size (this includes techniques or standardized protocols for targeted exams where dose is matched to indication/reason for exam; i.e. extremities or head) *Use of iterative reconstruction technique DLP: 683.43 mGy-cm FINDINGS: There is no evidence of acute intracranial hemorrhage or territorial infarction. No abnormal mass effect or midline shift is seen. [place] to white matter differentiation is well preserved. No extra-axial fluid collections are identified. The ventricles are normal in size. Bilateral subcortical and deep periventricular white matter hypodensities are present (left greater than right), appears similar to prior study. The osseous structures and soft tissues are normal. The mastoid air cells are well-aerated. Mucoperiosteal thickening is noted at bilateral ethmoidal, frontal sinuses, similar to prior study. CT/CT head/brain wo con IMPRESSION: No acute intracranial pathology. No significant change since 08/09/2021.
--- NOTE | ~2021-09-28 | XR_ITS ---
EXAMINATION: XR CHEST CLINICAL INFORMATION: Fever with shortness of breath COMPARISON: August 24, 2021 and May 14, 2021 TECHNIQUE: AP portable view of the chest was obtained. FINDINGS: Since previous study patient has developed regions of parenchymal disease within the right upper lung as well as increase in disease within the lower lung. There appears to be some stable left base discoid atelectasis or scarring. The cardiopericardial silhouette is mildly enlarged. No evidence of pulmonary edema. No pneumothorax. Old left clavicle fracture. XR/XR chest 1V IMPRESSION: Developing right lung disease as described consistent with pneumonia.
--- NOTE | ~2021-09-28 | CT_ITS ---
EXAMINATION: CT ANGIOGRAM OF THE CHEST WITH AND WITHOUT CONTRAST (CT PULMONARY ANGIOGRAM FOR PE) CLINICAL INFORMATION: Reason for Exam hypoxia ?pe COMPARISON: CT angiogram chest 05/02/2021 and multiple chest radiographs including 05/14/2021 TECHNIQUE: Prior to contrast administration, noncontrast localization images were obtained. Subsequently, multidetector volumetric imaging was performed from the thoracic inlet to below the diaphragms following the administration of 85 mL Omnipaque 350 intravenous contrast. No contrast reaction reported Sagittal, coronal, and MIP oblique sagittal reformatted images were obtained on the CT workstation, uploaded to PACS, and reviewed. This CT examination was performed using dose optimization techniques as appropriate, variously including the following: *Automated exposure control *Adjustment of mA and/or kV according to patient size (this includes techniques or standardized protocols for targeted exams where dose is matched to indication/reason for exam; i.e. extremities or head) *Use of iterative reconstruction technique Total exam dose-length product 401 mGy-cm FINDINGS: QUALITY OF STUDY/CONTRAST BOLUS: Satisfactory. PULMONARY ARTERIES: No central or large segmental pulmonary emboli. THORACIC AORTA: No aneurysm or dissection. Right subclavian artery is present. LUNG: Patchy consolidative changes present in the right lung which are most likely new, but not as marked as these changes were on the prior CT scan. On the prior CT scan there was very extensive consolidative changes present in the right lung. On the chest radiograph from 05/14/2021, this seemed to be considerably improved. The left lung continues to be clear. PLEURA: No pleural effusion or pneumothorax. MEDIASTINUM: Normal heart size. No pericardial effusion. No hilar or mediastinal lymphadenopathy. No evidence of septal bowing or right heart strain. CHEST WALL/AXILLA: No axillary or internal mammary lymphadenopathy. OSSEOUS STRUCTURES: No acute or suspicious osseous abnormality. UPPER ABDOMEN: The spleen is not completely included on this exam but it is enlarged. See report CT abdomen pelvis same day. No reflux of contrast into the hepatic veins to suggest elevated right heart pressures. CT/CT angio chest PE protocol IMPRESSION: No evidence of pulmonary emboli. Recurrent right lung multifocal pneumonia. VTE: negative
--- NOTE | 2021-09-28 10:41 | ECG_ITS ---
Test Reason : dyspnea Blood Pressure : / mmHG Vent. Rate : 127 BPM Atrial Rate : 127 BPM P-R Int : 162 ms QRS Dur : 074 ms QT Int : 292 ms P-R-T Axes : 070 079 048 degrees QTc Int : 424 ms Sinus tachycardia Otherwise normal ECG When compared with ECG of 09-AUG-2021 13:19, No significant change was found Heart rate has increased Referred By: Haroldo Villeda Electronically Signed By:MELODY HURTADO MD
--- NOTE | 2021-09-28 10:45 | ED.SOB ---
HPI - SOB/Dyspnea General Chief Complaint: Dyspnea <Haroldo Villeda MD - Last Filed: 09/28/21 15:43> Stated Complaint: DIFF BREATHING <Haroldo Villeda MD - Last Filed: 09/28/21 15:43> Time Seen by Provider: 09/28/21 10:31 <Haroldo Villeda MD - Last Filed: 09/28/21 15:43> Source: patient and other ([facility] note) <Haroldo Villeda MD - Last Filed: 09/28/21 15:43> Mode of arrival: EMS <Haroldo Villeda MD - Last Filed: 09/28/21 15:43> Limitations: other (Mentally delayed) <Haroldo Villeda MD - Last Filed: 09/28/21 15:43> History of Present Illness HPI Narrative: 56-year-old male who is mentally delayed and lives in a [facility] who was sent to the emergency department for evaluation of cough and shortness of breath the patient was seen today at [facility]. He was noted to be coughing, he was short of breath and having difficulty breathing. The note states that he is on a pureed diet and prone to aspiration pneumonia when he does not eat pureed food. The patient reports eating food that is not peer I would every time he goes over to his girlfriend's house which is every day. Patient was transported to the emergency department by ambulance. At the time of evaluation he does appear to be dyspneic, he is awake and alert and does not appear to be in distress. Initial vital signs revealed a blood pressure of 156/94, pulse of 129, respiratory 24, temperature of a 103.8? and O2 saturation of 89% on room air. The patient meets SIRS and sepsis criteria. <Haroldo Villeda MD - Last Filed: 09/28/21 15:43> Related Data Home Medications: Home Medications Medication Instructions Recorded Confirmed benztropine 1 mg tablet 1 tab PO BID 10/07/20 09/28/21 budesonide 0.5 mg/2 mL suspension 1 vial INHALATION BID 10/07/20 09/28/21 for nebulization clozapine 100 mg tablet 3 tab PO BEDTIME 10/07/20 09/28/21 perphenazine 8 mg tablet 8 mg PO BEDTIME@199910/07/20 09/28/21 simvastatin 40 mg tablet 40 mg PO BEDTIME 10/07/20 09/28/21 albuterol sulfate 90 mcg/actuation 2 inh INHALATION QID PRN 04/25/21 09/28/21 aerosol inhaler (ProAir HFA) ferrous sulfate 324 mg (65 mg 324 mg PO BID 04/25/21 09/28/21 iron) tablet,delayed release insulin glargine 100 unit/mL (3 40 unit SUBCUT DAILY 04/25/21 09/28/21 mL) subcutaneous pen (Lantus Solostar U-100 Insulin) ipratropium 0.5 mg-albuterol 3 mg 3 ml INHALATION BID PRN 04/25/21 09/28/21 (2.5 mg base)/3 mL nebulization soln paliperidone palmitate 156 mg/mL 156 mg IM Q28D 04/25/21 09/28/21 intramuscular syringe (Invega Sustenna) paroxetine HCl 40 mg tablet 40 mg PO DAILY 04/25/21 09/28/21 perphenazine 16 mg tablet 16 mg PO BID@0800,199904/25/21 09/28/21 metformin 1,000 mg tablet 1,000 mg PO BIDWM 06/17/21 09/28/21 triamcinolone acetonide 0.1 % 1 appl TOPICAL BID 06/17/21 09/28/21 topical cream ammonium lactate 12 % lotion 1 appl TOPICAL BID 09/28/21 09/28/21 aspirin 81 mg tablet,delayed 1 tab PO DAILY 09/28/21 09/28/21 release Previous Rx's Medication Instructions Recorded pantoprazole 40 mg tablet,delayed 40 mg PO BID #60 tab 04/28/21 release (Protonix) magnesium oxide 400 mg (241.3 mg 400 mg PO BIDPC #60 tab 05/05/21 magnesium) tablet <Haroldo Villeda MD - Last Filed: 09/28/21 15:43> Allergies/Adverse Reactions: Allergies Allergy/AdvReac Type Severity Reaction Status Date / Time prednisone Allergy Unknown Verified 06/17/21 08:59 <Haroldo Villeda MD - Last Filed: 09/28/21 15:43> Review of Systems Review of Systems: Yes Other (Limited since the patient does have a history of mental disability/mental d) <Haroldo Villeda MD - Last Filed: 09/28/21 15:43> [facility] Past Medical History Medical History: Medical History SANDIP (acute kidney injury) Aspiration pneumonia COPD (chronic obstructive pulmonary disease) Depression Diabetes Dysphagia Esophagitis with gastritis alcohol syndrome HTN (hypertension) Hyperkalemia Hyperkalemia Hyperlipidemia Internal hemorrhoids Internal hemorrhoids Iron deficiency anemia Iron deficiency anemia Obstructive sleep apnea Paranoia Schizo-affective schizophrenia <Haroldo Villeda MD - Last Filed: 09/28/21 15:43> Surgical History: Surgical History H/O endoscopy <Haroldo Villeda MD - Last Filed: 09/28/21 15:43> Social History Social History: Social History Household Members: Other Housing: Other Housing Other:: [facility] Do you presently have visiting nurse or other home services: No Unable to assess alcohol history related to: Unknown Alcohol intake: never Patient Tobacco Use Status: Current everyday Tobacco user e-Cigarette/Vaping Use: Currently Using Second Hand Smoke Exposure: No Use of substances other than those prescribed or required for medical reasons: No Substance Use Type: Crack/Cocaine Advance Directives: No Advance Directives Information Provided: No service: No Current occupational status: disabled <Haroldo Villeda MD - Last Filed: 09/28/21 15:43> Physical Exam Vital Signs: Vital Signs: Last Vital Signs Temp 96.8 F 09/28/21 18:28 Pulse 97 09/28/21 18:28 Resp 22 H 09/28/21 18:28 BP 110/65 09/28/21 18:28 Pulse Ox 100 09/28/21 18:28 Body Mass Index 25.7 <Haroldo Villeda MD - Last Filed: 09/28/21 15:43> Vital Signs: Last Vital Signs Temp 96.8 F 09/28/21 18:28 Pulse 97 09/28/21 18:28 Resp 22 H 09/28/21 18:28 BP 110/65 09/28/21 18:28 Pulse Ox 100 09/28/21 18:28 Body Mass Index 25.7 <Rodrick Blackburn MD - Last Filed: 09/28/21 20:29> Const: Other: Awake, alert, male patient, does answer questions appropriately, is tachypneic <Haroldo Villeda MD - Last Filed: 09/28/21 15:43> Orientation/consciousness: oriented to person and oriented to place <Haroldo Villeda MD - Last Filed: 09/28/21 15:43> HENMT: Head: Yes normal to inspection, Yes normocephalic and Yes atraumatic <Haroldo Villeda MD - Last Filed: 09/28/21 15:43> Ears: external ears normal <Haroldo Villeda MD - Last Filed: 09/28/21 15:43> General nose exam: Normal external nose present <Haroldo Villeda MD - Last Filed: 09/28/21 15:43> Face and sinus: Yes normal facial exam <Harlodo Villeda MD - Last Filed: 09/28/21 15:43> Mouth: other (Dry mucous membranes) <Haroldo Villeda MD - Last Filed: 09/28/21 15:43> Throat: Yes posterior oropharynx normal <Haroldo Villeda MD - Last Filed: 09/28/21 15:43> Eyes: General: appearance normal, both eyes and all related structures <Haroldo Villeda MD - Last Filed: 09/28/21 15:43> Pupils: Equal, round and reactive pupils present <MD Johnny Darling Last Filed: 09/28/21 15:43> Neck: Neck: Yes normal visual inspection, Yes no lymphadenopathy, Yes trachea midline and Yes supple <MD Johnny Darling Last Filed: 09/28/21 15:43> Chest: Chest palpation & inspection: normal inspection of the chest and normal palpation of entire chest wall <Haroldo Villeda MD - Last Filed: 09/28/21 15:43> Resp: Other: Tachypnea, rhonchi and rales at the bases, no wheezing, breath sounds are symmetric bilaterally <Haroldo Villeda MD - Last Filed: 09/28/21 15:43> Cardio: Rate: tachycardic <Haroldo Villeda MD - Last Filed: 09/28/21 15:43> Rhythm: regular rhythm <Haroldo Villeda MD - Last Filed: 09/28/21 15:43> Heart sounds: S1 normal heart sound present, S2 normal heart sound present and no murmurs <Haroldo Villeda MD - Last Filed: 09/28/21 15:43> GI: Inspection: Yes normal to inspection <Haroldo Villeda MD - Last Filed: 09/28/21 15:43> Palpation (GI): Soft to palpation, nontender and no guarding <Haroldo Villeda MD - Last Filed: 09/28/21 15:43> Auscultation: normal bowel sounds <Haroldo Villeda MD - Last Filed: 09/28/21 15:43> : General: Yes no CVA tenderness <Haroldo Villeda MD - Last Filed: 09/28/21 15:43> Back/Spine/Pelvis: Back: no CVA tenderness <Haroldo Villeda MD - Last Filed: 09/28/21 15:43> Skin: General skin exam: no rashes or lesions noted <Haroldo Villeda MD - Last Filed: 09/28/21 15:43> Neuro: General: oriented to person and oriented to place <Haroldo Villeda MD - Last Filed: 09/28/21 15:43> Cranial nerves: Yes CN's II-XII intact bilaterally and Yes Equal, round and reactive pupils present <Haroldo Villeda MD - Last Filed: 09/28/21 15:43> Motor exam (neuro): 5/5 motor strength present throughout <Haroldo Villeda MD - Last Filed: 09/28/21 15:43> Extrem: General: Yes normal to inspection <Haroldo Villeda MD - Last Filed: 09/28/21 15:43> Psych: Appearance: grossly normal <Haroldo Villeda MD - Last Filed: 09/28/21 15:43> Attitude: cooperative <Haroldo Villeda MD - Last Filed: 09/28/21 15:43> Thought process: Normal thought process present <Haroldo Villeda MD - Last Filed: 09/28/21 15:43> Course Course Course Narrative: 56-year-old male with a history of dysphagia to food and aspiration pneumonia who presents emergency department for evaluation of shortness of breath. Vital signs were concerning for possible sepsis with a blood pressure of 156/94, pulse of 129, respiratory 24, temperature 103? point a an O2 saturation of 89% on room air. Lung exam did reveal rhonchi and rales at the bases. I ordered a septic workup to include CBC, CMP, lactic acid, blood cultures x2, urinalysis, urine drug screen, one view chest x-ray. Patient was ordered to get a fluid bolus of normal saline 30 cc/kilogram, Zosyn 4.5 g IV and Tylenol crushed and placed in applesauce 940 mg orally. 1208: Laboratory: WBC was elevated 96235, potassium was elevated 5.5, glucose was elevated at 134. Lactic acid was normal at 2.0. ETOH level was below detectable limits. Urine drug screen is pending. Chest x-ray is concerning for right-sided infiltrate. I will discuss admission with the covering hospitalist. 1431: The nurse noted that the patient was diaphoretic and somnolent. Point of care glucose was 36. The patient is arousable but very somnolent compared to his baseline. Patient was ordered to get D the 50 25 g IV push x2 doses, intranasal Narcan 4 mg and D5 NS at 125 cc per hour. The patient does respond to painful stimuli but is still somnolent. I will check an ABG on this patient to see if he is retaining CO2. 15 40: ABG on room air corrected for temperature was 7.29/66/104/31/4.2. The patient has a respiratory acidosis, most likely secondary to hypoventilation. I did discuss this with the hospitalist and she requested that I consult the commercial ocean clammer. I did discuss this with Dr. Stallworth. The patient be placed on BiPAP Dr. Stallworth will evaluate the patient in the emergency department. <Haroldo Villeda MD - Last Filed: 09/28/21 15:43> Reevaluation(s) Reevaluation #1: Patient awake alert back to baseline said that was just sleeping today which he does all the time denies any use of drugs urine drug screening is negative for substance abuse. CTA chest positive for right-sided multifocal pneumonia CT head CT abdomen negative for any acute pathology. Patient is on 1 L oxygen saturating 96% afebrile will admit patient to hospitalist <Rodrick Blackburn MD - Last Filed: 09/28/21 20:29> Time: 18:30 <Rodrick Blackburn MD - Last Filed: 09/28/21 20:29> MDM - SOB/Dyspnea Lab Data Result diagrams: : 09/28/21 11:17 09/28/21 11:17 <Haroldo Villeda MD - Last Filed: 09/28/21 15:43> Labs: Lab Results 09/28/21 09/28/21 09/28/21 Range/Units 11:16 11:17 11:17 WBC 13.9 H (4.8-10.8) X10*3/uL RBC 5.04 (4.60-5.80) X10*6/uL Hgb 11.1 L (14.0-18.0) g/dl Hct 37.8 L (42.0-52.0) % MCV 75.0 L (80.0-98.0) fL MCH 22.0 L (27.0-33.0) pg MCHC 29.4 L (31.0-36.0) g/dl RDW 20.4 H (11.0-16.0) % Plt Count 265 (160-400) X10*3/uL MPV 10.5 (9.4-12.4) fL Immature Gran % (Auto) 0.8 H (0.0-0.4) % Neut % (Auto) 89.1 H (45-73) % Lymph % (Auto) 3.4 L (20-40) % [place] % (Auto) 6.4 (2-11) % Eos % (Auto) 0.0 (0-4) % Baso % (Auto) 0.3 (0-2) % Lymph # (Auto) 0.5 L (1.2-4.9) X10*3/uL [place] # (Auto) 0.9 (0.1-1.2) X10*3/uL Eos # (Auto) 0.0 (0.0-0.4) X10*3/uL Baso # (Auto) 0.0 (0.0-0.2) X10*3/uL Abs Immat Gran (auto) 0.11 H (0.00-0.03) X10*3/uL Absolute Neuts (auto) 12.4 H (2.0-8.3) x10*3/uL Absolute Nucleated RBC 0.000 (0.0-0.012) X10*3/uL Nucleated RBC % (auto) 0.0 (0.0-0.2) /100WBC O2 Saturation % ABG pH at Pt Temp (7.35-7.45) ABG pH (Temp Correct) (7.35-7.45) ABG pCO2 at Pt Temp (32-45) mmHg ABG pCO2 (Temp Corrct (32-45) mmHg ABG pO2 at Pt Temp (83-108) mmHg ABG pO2 (Temp Correct (83-108) ABG HCO3 (22-26) mmol/L ABG Base Excess (Actual) mmol/L Sodium 137 (135-145) mmol/L Potassium 5.5 H (3.3-5.1) mmol/L Chloride 101 (96-108) mmol/L Carbon Dioxide 28 (22-29) mmol/L Anion Gap 14 (12-20) BUN 19 H (9-16) mg/dL Creatinine 0.97 (0.5-1.4) mg/dL Estim Creat Clear Calc 72.8 Estimated GFR > 60 POC Glucose (60-115) mg/dL Random Glucose 134 H D (60-115) mg/dL Lactic Acid 2.0 (0.5-2.0) mmol/L Calcium 8.9 (8.4-10.2) mg/dL Total Bilirubin 0.3 (0.0-1.0) mg/dL AST 35 D (5-37) U/L ALT 29 (0-40) U/L Alkaline Phosphatase 100 (39-117) U/L Total Protein 6.8 (6.5-8.0) g/dL Albumin 3.8 (3.5-5.0) g/dL Urine Color Urine Appearance Urine pH (5.0-8.0) Ur Specific [place] (1.005-1.025) Urine Protein (NEG-TRACE) MG/DL Urine Glucose (UA) (NEG) MG/DL Urine Ketones (NEG) MG/DL Urine Blood (NEG) Urine Nitrite (NEG) Ur Leukocyte Esterase (NEG) Urine RBC (0) /HPF Urine WBC (0-4) /HPF Ur Squamous Epith Cells /LPF Urine Bacteria /LPF Urine Opiates Screen (Not Detect) Urine Fentanyl Screen (Not Detect) Ur Barbiturates Screen (Not Detect) Ur Phencyclidine Scrn (Not Detect) Ur Amphetamines Screen (Not Detect) U Benzodiazepines Scrn (Not Detect) Urine Cocaine Screen (Not Detect) U Marijuana (THC) Screen (Not Detect) COVID-19 (ANDERS) (Negative) COVID-19 Clin Com Influenza Type A (PCR) (Negative) Influenza Type B (PCR) (Negative) RSV RNA Qual (PCR) (Negative) SARS-CoV-2 RNA (RT-PCR) (Negative) 09/28/21 09/28/21 09/28/21 Range/Units 11:56 11:56 12:14 WBC (4.8-10.8) X10*3/uL RBC (4.60-5.80) X10*6/uL Hgb (14.0-18.0) g/dl Hct (42.0-52.0) % MCV (80.0-98.0) fL MCH (27.0-33.0) pg MCHC (31.0-36.0) g/dl RDW (11.0-16.0) % Plt Count (160-400) X10*3/uL MPV (9.4-12.4) fL Immature Gran % (Auto) (0.0-0.4) % Neut % (Auto) (45-73) % Lymph % (Auto) (20-40) % [place] % (Auto) (2-11) % Eos % (Auto) (0-4) % Baso % (Auto) (0-2) % Lymph # (Auto) (1.2-4.9) X10*3/uL [place] # (Auto) (0.1-1.2) X10*3/uL Eos # (Auto) (0.0-0.4) X10*3/uL Baso # (Auto) (0.0-0.2) X10*3/uL Abs Immat Gran (auto) (0.00-0.03) X10*3/uL Absolute Neuts (auto) (2.0-8.3) x10*3/uL Absolute Nucleated RBC (0.0-0.012) X10*3/uL Nucleated RBC % (auto) (0.0-0.2) /100WBC O2 Saturation % ABG pH at Pt Temp (7.35-7.45) ABG pH (Temp Correct) (7.35-7.45) ABG pCO2 at Pt Temp (32-45) mmHg ABG pCO2 (Temp Corrct (32-45) mmHg ABG pO2 at Pt Temp (83-108) mmHg ABG pO2 (Temp Correct (83-108) ABG HCO3 (22-26) mmol/L ABG Base Excess (Actual) mmol/L Sodium (135-145) mmol/L Potassium (3.3-5.1) mmol/L Chloride (96-108) mmol/L Carbon Dioxide (22-29) mmol/L Anion Gap (12-20) BUN (9-16) mg/dL Creatinine (0.5-1.4) mg/dL Estim Creat Clear Calc Estimated GFR POC Glucose (60-115) mg/dL Random Glucose (60-115) mg/dL Lactic Acid (0.5-2.0) mmol/L Calcium (8.4-10.2) mg/dL Total Bilirubin (0.0-1.0) mg/dL AST (5-37) U/L ALT (0-40) U/L Alkaline Phosphatase (39-117) U/L Total Protein (6.5-8.0) g/dL Albumin (3.5-5.0) g/dL Urine Color YELLOW Urine Appearance CLEAR Urine pH 6.0 (5.0-8.0) Ur Specific [place] 1.020 (1.005-1.025) Urine Protein 1+ H (NEG-TRACE) MG/DL Urine Glucose (UA) 100 H (NEG) MG/DL Urine Ketones NEG (NEG) MG/DL Urine Blood NEG (NEG) Urine Nitrite NEG (NEG) Ur Leukocyte Esterase NEG (NEG) Urine RBC 0 (0) /HPF Urine WBC 0 (0-4) /HPF Ur Squamous Epith Cells NONE /LPF Urine Bacteria NONE /LPF Urine Opiates Screen Not Detected (Not Detect) Urine Fentanyl Screen Not Detected (Not Detect) Ur Barbiturates Screen Not Detected (Not Detect) Ur Phencyclidine Scrn Not Detected (Not Detect) Ur Amphetamines Screen Not Detected (Not Detect) U Benzodiazepines Scrn Not Detected (Not Detect) Urine Cocaine Screen Not Detected (Not Detect) U Marijuana (THC) Screen Not Detected (Not Detect) COVID-19 (ANDERS) Negative (Negative) COVID-19 Clin Com See Note Influenza Type A (PCR) (Negative) Influenza Type B (PCR) (Negative) RSV RNA Qual (PCR) (Negative) SARS-CoV-2 RNA (RT-PCR) (Negative) 09/28/21 09/28/21 09/28/21 Range/Units 14:26 14:39 14:47 WBC (4.8-10.8) X10*3/uL RBC (4.60-5.80) X10*6/uL Hgb (14.0-18.0) g/dl Hct (42.0-52.0) % MCV (80.0-98.0) fL MCH (27.0-33.0) pg MCHC (31.0-36.0) g/dl RDW (11.0-16.0) % Plt Count (160-400) X10*3/uL MPV (9.4-12.4) fL Immature Gran % (Auto) (0.0-0.4) % Neut % (Auto) (45-73) % Lymph % (Auto) (20-40) % [place] % (Auto) (2-11) % Eos % (Auto) (0-4) % Baso % (Auto) (0-2) % Lymph # (Auto) (1.2-4.9) X10*3/uL [place] # (Auto) (0.1-1.2) X10*3/uL Eos # (Auto) (0.0-0.4) X10*3/uL Baso # (Auto) (0.0-0.2) X10*3/uL Abs Immat Gran (auto) (0.00-0.03) X10*3/uL Absolute Neuts (auto) (2.0-8.3) x10*3/uL Absolute Nucleated RBC (0.0-0.012) X10*3/uL Nucleated RBC % (auto) (0.0-0.2) /100WBC O2 Saturation % ABG pH at Pt Temp (7.35-7.45) ABG pH (Temp Correct) (7.35-7.45) ABG pCO2 at Pt Temp (32-45) mmHg ABG pCO2 (Temp Corrct (32-45) mmHg ABG pO2 at Pt Temp (83-108) mmHg ABG pO2 (Temp Correct (83-108) ABG HCO3 (22-26) mmol/L ABG Base Excess (Actual) mmol/L Sodium (135-145) mmol/L Potassium (3.3-5.1) mmol/L Chloride (96-108) mmol/L Carbon Dioxide (22-29) mmol/L Anion Gap (12-20) BUN (9-16) mg/dL Creatinine (0.5-1.4) mg/dL Estim Creat Clear Calc Estimated GFR POC Glucose 36 L* 425 H* 334 H (60-115) mg/dL Random Glucose (60-115) mg/dL Lactic Acid (0.5-2.0) mmol/L Calcium (8.4-10.2) mg/dL Total Bilirubin (0.0-1.0) mg/dL AST (5-37) U/L ALT (0-40) U/L Alkaline Phosphatase (39-117) U/L Total Protein (6.5-8.0) g/dL Albumin (3.5-5.0) g/dL Urine Color Urine Appearance Urine pH (5.0-8.0) Ur Specific [place] (1.005-1.025) Urine Protein (NEG-TRACE) MG/DL Urine Glucose (UA) (NEG) MG/DL Urine Ketones (NEG) MG/DL Urine Blood (NEG) Urine Nitrite (NEG) Ur Leukocyte Esterase (NEG) Urine RBC (0) /HPF Urine WBC (0-4) /HPF Ur Squamous Epith Cells /LPF Urine Bacteria /LPF Urine Opiates Screen (Not Detect) Urine Fentanyl Screen (Not Detect) Ur Barbiturates Screen (Not Detect) Ur Phencyclidine Scrn (Not Detect) Ur Amphetamines Screen (Not Detect) U Benzodiazepines Scrn (Not Detect) Urine Cocaine Screen (Not Detect) U Marijuana (THC) Screen (Not Detect) COVID-19 (ANDERS) (Negative) COVID-19 Clin Com Influenza Type A (PCR) (Negative) Influenza Type B (PCR) (Negative) RSV RNA Qual (PCR) (Negative) SARS-CoV-2 RNA (RT-PCR) (Negative) 09/28/21 09/28/21 09/28/21 Range/Units 15:14 15:42 16:30 WBC (4.8-10.8) X10*3/uL RBC (4.60-5.80) X10*6/uL Hgb (14.0-18.0) g/dl Hct (42.0-52.0) % MCV (80.0-98.0) fL MCH (27.0-33.0) pg MCHC (31.0-36.0) g/dl RDW (11.0-16.0) % Plt Count (160-400) X10*3/uL MPV (9.4-12.4) fL Immature Gran % (Auto) (0.0-0.4) % Neut % (Auto) (45-73) % Lymph % (Auto) (20-40) % [place] % (Auto) (2-11) % Eos % (Auto) (0-4) % Baso % (Auto) (0-2) % Lymph # (Auto) (1.2-4.9) X10*3/uL [place] # (Auto) (0.1-1.2) X10*3/uL Eos # (Auto) (0.0-0.4) X10*3/uL Baso # (Auto) (0.0-0.2) X10*3/uL Abs Immat Gran (auto) (0.00-0.03) X10*3/uL Absolute Neuts (auto) (2.0-8.3) x10*3/uL Absolute Nucleated RBC (0.0-0.012) X10*3/uL Nucleated RBC % (auto) (0.0-0.2) /100WBC O2 Saturation 96.0 % ABG pH at Pt Temp 7.32 L (7.35-7.45) ABG pH (Temp Correct) 7.29 L (7.35-7.45) ABG pCO2 at Pt Temp 59 H (32-45) mmHg ABG pCO2 (Temp Corrct 66 H* (32-45) mmHg ABG pO2 at Pt Temp 104 (83-108) mmHg ABG pO2 (Temp Correct 120 H (83-108) ABG HCO3 31 H (22-26) mmol/L ABG Base Excess (Actual) 4.2 mmol/L Sodium (135-145) mmol/L Potassium (3.3-5.1) mmol/L Chloride (96-108) mmol/L Carbon Dioxide (22-29) mmol/L Anion Gap (12-20) BUN (9-16) mg/dL Creatinine (0.5-1.4) mg/dL Estim Creat Clear Calc Estimated GFR POC Glucose 225 H 184 H (60-115) mg/dL Random Glucose (60-115) mg/dL Lactic Acid (0.5-2.0) mmol/L Calcium (8.4-10.2) mg/dL Total Bilirubin (0.0-1.0) mg/dL AST (5-37) U/L ALT (0-40) U/L Alkaline Phosphatase (39-117) U/L Total Protein (6.5-8.0) g/dL Albumin (3.5-5.0) g/dL Urine Color Urine Appearance Urine pH (5.0-8.0) Ur Specific [place] (1.005-1.025) Urine Protein (NEG-TRACE) MG/DL Urine Glucose (UA) (NEG) MG/DL Urine Ketones (NEG) MG/DL Urine Blood (NEG) Urine Nitrite (NEG) Ur Leukocyte Esterase (NEG) Urine RBC (0) /HPF Urine WBC (0-4) /HPF Ur Squamous Epith Cells /LPF Urine Bacteria /LPF Urine Opiates Screen (Not Detect) Urine Fentanyl Screen (Not Detect) Ur Barbiturates Screen (Not Detect) Ur Phencyclidine Scrn (Not Detect) Ur Amphetamines Screen (Not Detect) U Benzodiazepines Scrn (Not Detect) Urine Cocaine Screen (Not Detect) U Marijuana (THC) Screen (Not Detect) COVID-19 (ANDERS) (Negative) COVID-19 Clin Com Influenza Type A (PCR) (Negative) Influenza Type B (PCR) (Negative) RSV RNA Qual (PCR) (Negative) SARS-CoV-2 RNA (RT-PCR) (Negative) 09/28/21 09/28/21 09/28/21 Range/Units 16:51 17:22 18:30 WBC (4.8-10.8) X10*3/uL RBC (4.60-5.80) X10*6/uL Hgb (14.0-18.0) g/dl Hct (42.0-52.0) % MCV (80.0-98.0) fL MCH (27.0-33.0) pg MCHC (31.0-36.0) g/dl RDW (11.0-16.0) % Plt Count (160-400) X10*3/uL MPV (9.4-12.4) fL Immature Gran % (Auto) (0.0-0.4) % Neut % (Auto) (45-73) % Lymph % (Auto) (20-40) % [place] % (Auto) (2-11) % Eos % (Auto) (0-4) % Baso % (Auto) (0-2) % Lymph # (Auto) (1.2-4.9) X10*3/uL [place] # (Auto) (0.1-1.2) X10*3/uL Eos # (Auto) (0.0-0.4) X10*3/uL Baso # (Auto) (0.0-0.2) X10*3/uL Abs Immat Gran (auto) (0.00-0.03) X10*3/uL Absolute Neuts (auto) (2.0-8.3) x10*3/uL Absolute Nucleated RBC (0.0-0.012) X10*3/uL Nucleated RBC % (auto) (0.0-0.2) /100WBC O2 Saturation 97.0 % ABG pH at Pt Temp 7.36 (7.35-7.45) ABG pH (Temp Correct) 7.38 (7.35-7.45) ABG pCO2 at Pt Temp 51 H (32-45) mmHg ABG pCO2 (Temp Corrct 49 H (32-45) mmHg ABG pO2 at Pt Temp 112 H (83-108) mmHg ABG pO2 (Temp Correct 106 (83-108) ABG HCO3 29 H (22-26) mmol/L ABG Base Excess (Actual) 3.5 mmol/L Sodium (135-145) mmol/L Potassium (3.3-5.1) mmol/L Chloride (96-108) mmol/L Carbon Dioxide (22-29) mmol/L Anion Gap (12-20) BUN (9-16) mg/dL Creatinine (0.5-1.4) mg/dL Estim Creat Clear Calc Estimated GFR POC Glucose 195 H 184 H (60-115) mg/dL Random Glucose (60-115) mg/dL Lactic Acid (0.5-2.0) mmol/L Calcium (8.4-10.2) mg/dL Total Bilirubin (0.0-1.0) mg/dL AST (5-37) U/L ALT (0-40) U/L Alkaline Phosphatase (39-117) U/L Total Protein (6.5-8.0) g/dL Albumin (3.5-5.0) g/dL Urine Color Urine Appearance Urine pH (5.0-8.0) Ur Specific [place] (1.005-1.025) Urine Protein (NEG-TRACE) MG/DL Urine Glucose (UA) (NEG) MG/DL Urine Ketones (NEG) MG/DL Urine Blood (NEG) Urine Nitrite (NEG) Ur Leukocyte Esterase (NEG) Urine RBC (0) /HPF Urine WBC (0-4) /HPF Ur Squamous Epith Cells /LPF Urine Bacteria /LPF Urine Opiates Screen (Not Detect) Urine Fentanyl Screen (Not Detect) Ur Barbiturates Screen (Not Detect) Ur Phencyclidine Scrn (Not Detect) Ur Amphetamines Screen (Not Detect) U Benzodiazepines Scrn (Not Detect) Urine Cocaine Screen (Not Detect) U Marijuana (THC) Screen (Not Detect) COVID-19 (ANDERS) (Negative) COVID-19 [facility] Influenza Type A (PCR) (Negative) Influenza Type B (PCR) (Negative) RSV RNA Qual (PCR) (Negative) SARS-CoV-2 RNA (RT-PCR) (Negative) 09/28/21 09/28/21 Range/Units 19:13 19:52 WBC (4.8-10.8) X10*3/uL RBC (4.60-5.80) X10*6/uL Hgb (14.0-18.0) g/dl Hct (42.0-52.0) % MCV (80.0-98.0) fL MCH (27.0-33.0) pg MCHC (31.0-36.0) g/dl RDW (11.0-16.0) % Plt Count (160-400) X10*3/uL MPV (9.4-12.4) fL Immature Gran % (Auto) (0.0-0.4) % Neut % (Auto) (45-73) % Lymph % (Auto) (20-40) % [place] % (Auto) (2-11) % Eos % (Auto) (0-4) % Baso % (Auto) (0-2) % Lymph # (Auto) (1.2-4.9) X10*3/uL [place] # (Auto) (0.1-1.2) X10*3/uL Eos # (Auto) (0.0-0.4) X10*3/uL Baso # (Auto) (0.0-0.2) X10*3/uL Abs Immat Gran (auto) (0.00-0.03) X10*3/uL Absolute Neuts (auto) (2.0-8.3) x10*3/uL Absolute Nucleated RBC (0.0-0.012) X10*3/uL Nucleated RBC % (auto) (0.0-0.2) /100WBC O2 Saturation % ABG pH at Pt Temp (7.35-7.45) ABG pH (Temp Correct) (7.35-7.45) ABG pCO2 at Pt Temp (32-45) mmHg ABG pCO2 (Temp Corrct (32-45) mmHg ABG pO2 at Pt Temp (83-108) mmHg ABG pO2 (Temp Correct (83-108) ABG HCO3 (22-26) mmol/L ABG Base Excess (Actual) mmol/L Sodium (135-145) mmol/L Potassium (3.3-5.1) mmol/L Chloride (96-108) mmol/L Carbon Dioxide (22-29) mmol/L Anion Gap (12-20) BUN (9-16) mg/dL Creatinine (0.5-1.4) mg/dL Estim Creat Clear Calc Estimated GFR POC Glucose 184 H (60-115) mg/dL Random Glucose (60-115) mg/dL Lactic Acid (0.5-2.0) mmol/L Calcium (8.4-10.2) mg/dL Total Bilirubin (0.0-1.0) mg/dL AST (5-37) U/L ALT (0-40) U/L Alkaline Phosphatase (39-117) U/L Total Protein (6.5-8.0) g/dL Albumin (3.5-5.0) g/dL Urine Color Urine Appearance Urine pH (5.0-8.0) Ur Specific [place] (1.005-1.025) Urine Protein (NEG-TRACE) MG/DL Urine Glucose (UA) (NEG) MG/DL Urine Ketones (NEG) MG/DL Urine Blood (NEG) Urine Nitrite (NEG) Ur Leukocyte Esterase (NEG) Urine RBC (0) /HPF Urine WBC (0-4) /HPF Ur Squamous Epith Cells /LPF Urine Bacteria /LPF Urine Opiates Screen (Not Detect) Urine Fentanyl Screen (Not Detect) Ur Barbiturates Screen (Not Detect) Ur Phencyclidine Scrn (Not Detect) Ur Amphetamines Screen (Not Detect) U Benzodiazepines Scrn (Not Detect) Urine Cocaine Screen (Not Detect) U Marijuana (THC) Screen (Not Detect) COVID-19 (ANDERS) (Negative) COVID-19 Clin Com Influenza Type A (PCR) NEGATIVE (Negative) Influenza Type B (PCR) NEGATIVE (Negative) RSV RNA Qual (PCR) NEGATIVE (Negative) SARS-CoV-2 RNA (RT-PCR) NEGATIVE (Negative) <Haroldo Villeda MD - Last Filed: 09/28/21 15:43> Lab Results 09/28/21 09/28/2121 Range/Units 11:16 11:17 11:17 WBC 13.9 H (4.8-10.8) X10*3/uL RBC 5.04 (4.60-5.80) X10*6/uL Hgb 11.1 L (14.0-18.0) g/dl Hct 37.8 L (42.0-52.0) % MCV 75.0 L (80.0-98.0) fL MCH 22.0 L (27.0-33.0) pg MCHC 29.4 L (31.0-36.0) g/dl RDW 20.4 H (11.0-16.0) % Plt Count 265 (160-400) X10*3/uL MPV 10.5 (9.4-12.4) fL Immature Gran % (Auto) 0.8 H (0.0-0.4) % Neut % (Auto) 89.1 H (45-73) % Lymph % (Auto) 3.4 L (20-40) % [place] % (Auto) 6.4 (2-11) % Eos % (Auto) 0.0 (0-4) % Baso % (Auto) 0.3 (0-2) % Lymph # (Auto) 0.5 L (1.2-4.9) X10*3/uL [place] # (Auto) 0.9 (0.1-1.2) X10*3/uL Eos # (Auto) 0.0 (0.0-0.4) X10*3/uL Baso # (Auto) 0.0 (0.0-0.2) X10*3/uL Abs Immat Gran (auto) 0.11 H (0.00-0.03) X10*3/uL Absolute Neuts (auto) 12.4 H (2.0-8.3) x10*3/uL Absolute Nucleated RBC 0.000 (0.0-0.012) X10*3/uL Nucleated RBC % (auto) 0.0 (0.0-0.2) /100WBC O2 Saturation % ABG pH at Pt Temp (7.35-7.45) ABG pH (Temp Correct) (7.35-7.45) ABG pCO2 at Pt Temp (32-45) mmHg ABG pCO2 (Temp Corrct (32-45) mmHg ABG pO2 at Pt Temp (83-108) mmHg ABG pO2 (Temp Correct (83-108) ABG HCO3 (22-26) mmol/L ABG Base Excess (Actual) mmol/L Sodium 137 (135-145) mmol/L Potassium 5.5 H (3.3-5.1) mmol/L Chloride 101 (96-108) mmol/L Carbon Dioxide 28 (22-29) mmol/L Anion Gap 14 (12-20) BUN 19 H (9-16) mg/dL Creatinine 0.97 (0.5-1.4) mg/dL Estim Creat Clear Calc 72.8 Estimated GFR > 60 POC Glucose (60-115) mg/dL Random Glucose 134 H D (60-115) mg/dL Lactic Acid 2.0 (0.5-2.0) mmol/L Calcium 8.9 (8.4-10.2) mg/dL Total Bilirubin 0.3 (0.0-1.0) mg/dL AST 35 D (5-37) U/L ALT 29 (0-40) U/L Alkaline Phosphatase 100 (39-117) U/L Total Protein 6.8 (6.5-8.0) g/dL Albumin 3.8 (3.5-5.0) g/dL Urine Color Urine Appearance Urine pH (5.0-8.0) Ur Specific [place] (1.005-1.025) Urine Protein (NEG-TRACE) MG/DL Urine Glucose (UA) (NEG) MG/DL Urine Ketones (NEG) MG/DL Urine Blood (NEG) Urine Nitrite (NEG) Ur Leukocyte Esterase (NEG) Urine RBC (0) /HPF Urine WBC (0-4) /HPF Ur Squamous Epith Cells /LPF Urine Bacteria /LPF Urine Opiates Screen (Not Detect) Urine Fentanyl Screen (Not Detect) Ur Barbiturates Screen (Not Detect) Ur Phencyclidine Scrn (Not Detect) Ur Amphetamines Screen (Not Detect) U Benzodiazepines Scrn (Not Detect) Urine Cocaine Screen (Not Detect) U Marijuana (THC) Screen (Not Detect) COVID-19 (ANDERS) (Negative) COVID-19 Clin Com Influenza Type A (PCR) (Negative) Influenza Type B (PCR) (Negative) RSV RNA Qual (PCR) (Negative) SARS-CoV-2 RNA (RT-PCR) (Negative) 09/28/21 09/28/21 09/28/21 Range/Units 11:56 11:56 12:14 WBC (4.8-10.8) X10*3/uL RBC (4.60-5.80) X10*6/uL Hgb (14.0-18.0) g/dl Hct (42.0-52.0) % MCV (80.0-98.0) fL MCH (27.0-33.0) pg MCHC (31.0-36.0) g/dl RDW (11.0-16.0) % Plt Count (160-400) X10*3/uL MPV (9.4-12.4) fL Immature Gran % (Auto) (0.0-0.4) % Neut % (Auto) (45-73) % Lymph % (Auto) (20-40) % [place] % (Auto) (2-11) % Eos % (Auto) (0-4) % Baso % (Auto) (0-2) % Lymph # (Auto) (1.2-4.9) X10*3/uL [place] # (Auto) (0.1-1.2) X10*3/uL Eos # (Auto) (0.0-0.4) X10*3/uL Baso # (Auto) (0.0-0.2) X10*3/uL Abs Immat Gran (auto) (0.00-0.03) X10*3/uL Absolute Neuts (auto) (2.0-8.3) x10*3/uL Absolute Nucleated RBC (0.0-0.012) X10*3/uL Nucleated RBC % (auto) (0.0-0.2) /100WBC O2 Saturation % ABG pH at Pt Temp (7.35-7.45) ABG pH (Temp Correct) (7.35-7.45) ABG pCO2 at Pt Temp (32-45) mmHg ABG pCO2 (Temp Corrct (32-45) mmHg ABG pO2 at Pt Temp (83-108) mmHg ABG pO2 (Temp Correct (83-108) ABG HCO3 (22-26) mmol/L ABG Base Excess (Actual) mmol/L Sodium (135-145) mmol/L Potassium (3.3-5.1) mmol/L Chloride (96-108) mmol/L Carbon Dioxide (22-29) mmol/L Anion Gap (12-20) BUN (9-16) mg/dL Creatinine (0.5-1.4) mg/dL Estim Creat Clear Calc Estimated GFR POC Glucose (60-115) mg/dL Random Glucose (60-115) mg/dL Lactic Acid (0.5-2.0) mmol/L Calcium (8.4-10.2) mg/dL Total Bilirubin (0.0-1.0) mg/dL AST (5-37) U/L ALT (0-40) U/L Alkaline Phosphatase (39-117) U/L Total Protein (6.5-8.0) g/dL Albumin (3.5-5.0) g/dL Urine Color YELLOW Urine Appearance CLEAR Urine pH 6.0 (5.0-8.0) Ur Specific [place] 1.020 (1.005-1.025) Urine Protein 1+ H (NEG-TRACE) MG/DL Urine Glucose (UA) 100 H (NEG) MG/DL Urine Ketones NEG (NEG) MG/DL Urine Blood NEG (NEG) Urine Nitrite NEG (NEG) Ur Leukocyte Esterase NEG (NEG) Urine RBC 0 (0) /HPF Urine WBC 0 (0-4) /HPF Ur Squamous Epith Cells NONE /LPF Urine Bacteria NONE /LPF Urine Opiates Screen Not Detected (Not Detect) Urine Fentanyl Screen Not Detected (Not Detect) Ur Barbiturates Screen Not Detected (Not Detect) Ur Phencyclidine Scrn Not Detected (Not Detect) Ur Amphetamines Screen Not Detected (Not Detect) U Benzodiazepines Scrn Not Detected (Not Detect) Urine Cocaine Screen Not Detected (Not Detect) U Marijuana (THC) Screen Not Detected (Not Detect) COVID-19 (ANDERS) Negative (Negative) COVID-19 Clin Com See Note Influenza Type A (PCR) (Negative) Influenza Type B (PCR) (Negative) RSV RNA Qual (PCR) (Negative) SARS-CoV-2 RNA (RT-PCR) (Negative) 09/28/21 09/28/2109/28/21 Range/Units 14:26 14:39 14:47 WBC (4.8-10.8) X10*3/uL RBC (4.60-5.80) X10*6/uL Hgb (14.0-18.0) g/dl Hct (42.0-52.0) % MCV (80.0-98.0) fL MCH (27.0-33.0) pg MCHC (31.0-36.0) g/dl RDW (11.0-16.0) % Plt Count (160-400) X10*3/uL MPV (9.4-12.4) fL Immature Gran % (Auto) (0.0-0.4) % Neut % (Auto) (45-73) % Lymph % (Auto) (20-40) % [place] % (Auto) (2-11) % Eos % (Auto) (0-4) % Baso % (Auto) (0-2) % Lymph # (Auto) (1.2-4.9) X10*3/uL [place] # (Auto) (0.1-1.2) X10*3/uL Eos # (Auto) (0.0-0.4) X10*3/uL Baso # (Auto) (0.0-0.2) X10*3/uL Abs Immat Gran (auto) (0.00-0.03) X10*3/uL Absolute Neuts (auto) (2.0-8.3) x10*3/uL Absolute Nucleated RBC (0.0-0.012) X10*3/uL Nucleated RBC % (auto) (0.0-0.2) /100WBC O2 Saturation % ABG pH at Pt Temp (7.35-7.45) ABG pH (Temp Correct) (7.35-7.45) ABG pCO2 at Pt Temp (32-45) mmHg ABG pCO2 (Temp Corrct (32-45) mmHg ABG pO2 at Pt Temp (83-108) mmHg ABG pO2 (Temp Correct (83-108) ABG HCO3 (22-26) mmol/L ABG Base Excess (Actual) mmol/L Sodium (135-145) mmol/L Potassium (3.3-5.1) mmol/L Chloride (96-108) mmol/L Carbon Dioxide (22-29) mmol/L Anion Gap (12-20) BUN (9-16) mg/dL Creatinine (0.5-1.4) mg/dL Estim Creat Clear Calc Estimated GFR POC Glucose 36 L* 425 H* 334 H (60-115) mg/dL Random Glucose (60-115) mg/dL Lactic Acid (0.5-2.0) mmol/L Calcium (8.4-10.2) mg/dL Total Bilirubin (0.0-1.0) mg/dL AST (5-37) U/L ALT (0-40) U/L Alkaline Phosphatase (39-117) U/L Total Protein (6.5-8.0) g/dL Albumin (3.5-5.0) g/dL Urine Color Urine Appearance Urine pH (5.0-8.0) Ur Specific [place] (1.005-1.025) Urine Protein (NEG-TRACE) MG/DL Urine Glucose (UA) (NEG) MG/DL Urine Ketones (NEG) MG/DL Urine Blood (NEG) Urine Nitrite (NEG) Ur Leukocyte Esterase (NEG) Urine RBC (0) /HPF Urine WBC (0-4) /HPF Ur Squamous Epith Cells /LPF Urine Bacteria /LPF Urine Opiates Screen (Not Detect) Urine Fentanyl Screen (Not Detect) Ur Barbiturates Screen (Not Detect) Ur Phencyclidine Scrn (Not Detect) Ur Amphetamines Screen (Not Detect) U Benzodiazepines Scrn (Not Detect) Urine Cocaine Screen (Not Detect) U Marijuana (THC) Screen (Not Detect) COVID-19 (ANDERS) (Negative) COVID-19 Clin Com Influenza Type A (PCR) (Negative) Influenza Type B (PCR) (Negative) RSV RNA Qual (PCR) (Negative) SARS-CoV-2 RNA (RT-PCR) (Negative) 09/28/21 09/28/21 09/28/21 Range/Units 15:14 15:42 16:30 WBC (4.8-10.8) X10*3/uL RBC (4.60-5.80) X10*6/uL Hgb (14.0-18.0) g/dl Hct (42.0-52.0) % MCV (80.0-98.0) fL MCH (27.0-33.0) pg MCHC (31.0-36.0) g/dl RDW (11.0-16.0) % Plt Count (160-400) X10*3/uL MPV (9.4-12.4) fL Immature Gran % (Auto) (0.0-0.4) % Neut % (Auto) (45-73) % Lymph % (Auto) (20-40) % [place] % (Auto) (2-11) % Eos % (Auto) (0-4) % Baso % (Auto) (0-2) % Lymph # (Auto) (1.2-4.9) X10*3/uL [place] # (Auto) (0.1-1.2) X10*3/uL Eos # (Auto) (0.0-0.4) X10*3/uL Baso # (Auto) (0.0-0.2) X10*3/uL Abs Immat Gran (auto) (0.00-0.03) X10*3/uL Absolute Neuts (auto) (2.0-8.3) x10*3/uL Absolute Nucleated RBC (0.0-0.012) X10*3/uL Nucleated RBC % (auto) (0.0-0.2) /100WBC O2 Saturation 96.0 % ABG pH at Pt Temp 7.32 L (7.35-7.45) ABG pH (Temp Correct) 7.29 L (7.35-7.45) ABG pCO2 at Pt Temp 59 H (32-45) mmHg ABG pCO2 (Temp Corrct 66 H* (32-45) mmHg ABG pO2 at Pt Temp 104 (83-108) mmHg ABG pO2 (Temp Correct 120 H (83-108) ABG HCO3 31 H (22-26) mmol/L ABG Base Excess (Actual) 4.2 mmol/L Sodium (135-145) mmol/L Potassium (3.3-5.1) mmol/L Chloride (96-108) mmol/L Carbon Dioxide (22-29) mmol/L Anion Gap (12-20) BUN (9-16) mg/dL Creatinine (0.5-1.4) mg/dL Estim Creat Clear Calc Estimated GFR POC Glucose 225 H 184 H (60-115) mg/dL Random Glucose (60-115) mg/dL Lactic Acid (0.5-2.0) mmol/L Calcium (8.4-10.2) mg/dL Total Bilirubin (0.0-1.0) mg/dL AST (5-37) U/L ALT (0-40) U/L Alkaline Phosphatase (39-117) U/L Total Protein (6.5-8.0) g/dL Albumin (3.5-5.0) g/dL Urine Color Urine Appearance Urine pH (5.0-8.0) Ur Specific [place] (1.005-1.025) Urine Protein (NEG-TRACE) MG/DL Urine Glucose (UA) (NEG) MG/DL Urine Ketones (NEG) MG/DL Urine Blood (NEG) Urine Nitrite (NEG) Ur Leukocyte Esterase (NEG) Urine RBC (0) /HPF Urine WBC (0-4) /HPF Ur Squamous Epith Cells /LPF Urine Bacteria /LPF Urine Opiates Screen (Not Detect) Urine Fentanyl Screen (Not Detect) Ur Barbiturates Screen (Not Detect) Ur Phencyclidine Scrn (Not Detect) Ur Amphetamines Screen (Not Detect) U Benzodiazepines Scrn (Not Detect) Urine Cocaine Screen (Not Detect) U Marijuana (THC) Screen (Not Detect) COVID-19 (ANDERS) (Negative) COVID-19 Clin Com Influenza Type A (PCR) (Negative) Influenza Type B (PCR) (Negative) RSV RNA Qual (PCR) (Negative) SARS-CoV-2 RNA (RT-PCR) (Negative) 09/28/21 09/28/21 09/28/21 Range/Units 16:51 17:22 18:30 WBC (4.8-10.8) X10*3/uL RBC (4.60-5.80) X10*6/uL Hgb (14.0-18.0) g/dl Hct (42.0-52.0) % MCV (80.0-98.0) fL MCH (27.0-33.0) pg MCHC (31.0-36.0) g/dl RDW (11.0-16.0) % Plt Count (160-400) X10*3/uL MPV (9.4-12.4) fL Immature Gran % (Auto) (0.0-0.4) % Neut % (Auto) (45-73) % Lymph % (Auto) (20-40) % [place] % (Auto) (2-11) % Eos % (Auto) (0-4) % Baso % (Auto) (0-2) % Lymph # (Auto) (1.2-4.9) X10*3/uL [place] # (Auto) (0.1-1.2) X10*3/uL Eos # (Auto) (0.0-0.4) X10*3/uL Baso # (Auto) (0.0-0.2) X10*3/uL Abs Immat Gran (auto) (0.00-0.03) X10*3/uL Absolute Neuts (auto) (2.0-8.3) x10*3/uL Absolute Nucleated RBC (0.0-0.012) X10*3/uL Nucleated RBC % (auto) (0.0-0.2) /100WBC O2 Saturation 97.0 % ABG pH at Pt Temp 7.36 (7.35-7.45) ABG pH (Temp Correct) 7.38 (7.35-7.45) ABG pCO2 at Pt Temp 51 H (32-45) mmHg ABG pCO2 (Temp Corrct 49 H (32-45) mmHg ABG pO2 at Pt Temp 112 H (83-108) mmHg ABG pO2 (Temp Correct 106 (83-108) ABG HCO3 29 H (22-26) mmol/L ABG Base Excess (Actual) 3.5 mmol/L Sodium (135-145) mmol/L Potassium (3.3-5.1) mmol/L Chloride (96-108) mmol/L Carbon Dioxide (22-29) mmol/L Anion Gap (12-20) BUN (9-16) mg/dL Creatinine (0.5-1.4) mg/dL Estim Creat Clear Calc Estimated GFR POC Glucose 195 H 184 H (60-115) mg/dL Random Glucose (60-115) mg/dL Lactic Acid (0.5-2.0) mmol/L Calcium (8.4-10.2) mg/dL Total Bilirubin (0.0-1.0) mg/dL AST (5-37) U/L ALT (0-40) U/L Alkaline Phosphatase (39-117) U/L Total Protein (6.5-8.0) g/dL Albumin (3.5-5.0) g/dL Urine Color Urine Appearance Urine pH (5.0-8.0) Ur Specific [place] (1.005-1.025) Urine Protein (NEG-TRACE) MG/DL Urine Glucose (UA) (NEG) MG/DL Urine Ketones (NEG) MG/DL Urine Blood (NEG) Urine Nitrite (NEG) Ur Leukocyte Esterase (NEG) Urine RBC (0) /HPF Urine WBC (0-4) /HPF Ur Squamous Epith Cells /LPF Urine Bacteria /LPF Urine Opiates Screen (Not Detect) Urine Fentanyl Screen (Not Detect) Ur Barbiturates Screen (Not Detect) Ur Phencyclidine Scrn (Not Detect) Ur Amphetamines Screen (Not Detect) U Benzodiazepines Scrn (Not Detect) Urine Cocaine Screen (Not Detect) U Marijuana (THC) Screen (Not Detect) COVID-19 (ANDERS) (Negative) COVID-19 Clin Com Influenza Type A (PCR) (Negative) Influenza Type B (PCR) (Negative) RSV RNA Qual (PCR) (Negative) SARS-CoV-2 RNA (RT-PCR) (Negative) 09/28/21 09/28/21 Range/Units 19:13 19:52 WBC (4.8-10.8) X10*3/uL RBC (4.60-5.80) X10*6/uL Hgb (14.0-18.0) g/dl Hct (42.0-52.0) % MCV (80.0-98.0) fL MCH (27.0-33.0) pg MCHC (31.0-36.0) g/dl RDW (11.0-16.0) % Plt Count (160-400) X10*3/uL MPV (9.4-12.4) fL Immature Gran % (Auto) (0.0-0.4) % Neut % (Auto) (45-73) % Lymph % (Auto) (20-40) % [place] % (Auto) (2-11) % Eos % (Auto) (0-4) % Baso % (Auto) (0-2) % Lymph # (Auto) (1.2-4.9) X10*3/uL [place] # (Auto) (0.1-1.2) X10*3/uL Eos # (Auto) (0.0-0.4) X10*3/uL Baso # (Auto) (0.0-0.2) X10*3/uL Abs Immat Gran (auto) (0.00-0.03) X10*3/uL Absolute Neuts (auto) (2.0-8.3) x10*3/uL Absolute Nucleated RBC (0.0-0.012) X10*3/uL Nucleated RBC % (auto) (0.0-0.2) /100WBC O2 Saturation % ABG pH at Pt Temp (7.35-7.45) ABG pH (Temp Correct) (7.35-7.45) ABG pCO2 at Pt Temp (32-45) mmHg ABG pCO2 (Temp Corrct (32-45) mmHg ABG pO2 at Pt Temp (83-108) mmHg ABG pO2 (Temp Correct (83-108) ABG HCO3 (22-26) mmol/L ABG Base Excess (Actual) mmol/L Sodium (135-145) mmol/L Potassium (3.3-5.1) mmol/L Chloride (96-108) mmol/L Carbon Dioxide (22-29) mmol/L Anion Gap (12-20) BUN (9-16) mg/dL Creatinine (0.5-1.4) mg/dL Estim Creat Clear Calc Estimated GFR POC Glucose 184 H (60-115) mg/dL Random Glucose (60-115) mg/dL Lactic Acid (0.5-2.0) mmol/L Calcium (8.4-10.2) mg/dL Total Bilirubin (0.0-1.0) mg/dL AST (5-37) U/L ALT (0-40) U/L Alkaline Phosphatase (39-117) U/L Total Protein (6.5-8.0) g/dL Albumin (3.5-5.0) g/dL Urine Color Urine Appearance Urine pH (5.0-8.0) Ur Specific [place] (1.005-1.025) Urine Protein (NEG-TRACE) MG/DL Urine Glucose (UA) (NEG) MG/DL Urine Ketones (NEG) MG/DL Urine Blood (NEG) Urine Nitrite (NEG) Ur Leukocyte Esterase (NEG) Urine RBC (0) /HPF Urine WBC (0-4) /HPF Ur Squamous Epith Cells /LPF Urine Bacteria /LPF Urine Opiates Screen (Not Detect) Urine Fentanyl Screen (Not Detect) Ur Barbiturates Screen (Not Detect) Ur Phencyclidine Scrn (Not Detect) Ur Amphetamines Screen (Not Detect) U Benzodiazepines Scrn (Not Detect) Urine Cocaine Screen (Not Detect) U Marijuana (THC) Screen (Not Detect) COVID-19 (ANDERS) (Negative) COVID-19 Clin Com Influenza Type A (PCR) NEGATIVE (Negative) Influenza Type B (PCR) NEGATIVE (Negative) RSV RNA Qual (PCR) NEGATIVE (Negative) SARS-CoV-2 RNA (RT-PCR) NEGATIVE (Negative) <Rodrick Blackburn MD - Last Filed: 09/28/21 20:29> Critical Care Time Critical Care Time Critical Care Time: Yes <Haroldo Villeda MD - Last Filed: 09/28/21 15:43> Total Critical Care Time: 45 <Haroldo Villeda MD - Last Filed: 09/28/21 15:43> Attestation: Critical Care: The patient was critically ill with a high probability of imminent or life threatening deterioration. I spent greater than 30 minutes of discontinuous time evaluating the patient,delivering critical care at the bedside, discussing and evaluating pertinent data with consultants. Critical care time does not include time spent performing separately billable procedures or teaching. Total time spent performing critical care was 45 minutes. <Haroldo Villeda MD - Last Filed: 09/28/21 15:43> Discharge Plan Discharge Clinical Impression: Hypoxia, Hypoglycemia Aspiration pneumonia Qualifiers: Aspiration pneumonia type: unspecified Laterality: right Lung location: unspecified part of lung Qualified Code(s): J69.0 - Pneumonitis due to inhalation of food and vomit <Haroldo Villeda MD - Last Filed: 09/28/21 15:43> Patient Disposition: Admitted As Inpatient <Haroldo Villeda MD - Last Filed: 09/28/21 15:43>
[2021-09-28] MEDS: Acetaminophen 325 MG TABLET 975 MG PO (11:23)
[2021-09-28] MEDS: 0.9 % Sodium Chloride 2,041.17 ML 2041.17 ML IVCONT (11:23)
[2021-09-28 11:29] LABS: MANUAL DIFF FLAG NO
[2021-09-28 11:34] LABS: Basophils Percent Auto 0.3 % (0-2); Hematocrit 37.8 % (42.0-52.0); Hemoglobin 11.1 g/dl (14.0-18.0); Imm Gran Abs Auto 0.11 X10*3/uL (0.00-0.03); Imm Gran Pct Auto 0.8 % (0.0-0.4); Lymphocytes Absolute Auto 0.5 X10*3/uL (1.2-4.9); Lymphocytes Percent Auto 3.4 % (20-40); Mean Corpuscular HGB Conc 29.4 g/dl (31.0-36.0); Mean Platelet Volume 10.5 fL (9.4-12.4); Monocytes Absolute Auto 0.9 X10*3/uL (0.1-1.2); Monocytes Percent Auto 6.4 % (2-11); Neutrophils Absolute Auto 12.4 x10*3/uL (2.0-8.3); Neutrophils Percent Auto 89.1 % (45-73); Platelet Count 265 X10*3/uL (160-400); Red Blood Count 5.04 X10*6/uL (4.60-5.80); Red Cell Distribution Width 20.4 % (11.0-16.0); White Blood Count 13.9 X10*3/uL (4.8-10.8)
[2021-09-28] MEDS: Piperacillin Sodium/Tazobactam 4.5 GM in 0.9 % Sodium Chloride 100 ML IV (11:35)
[2021-09-28 11:53] LABS: Alanine Aminotransferase 29 U/L (0-40); Albumin Level 3.8 g/dL (3.5-5.0); Alkaline Phosphatase 100 U/L (39-117); Anion Gap 14 (12-20); Aspartate Amino Transferase 35 U/L (5-37); Bilirubin Total 0.3 mg/dL (0.0-1.0); Blood Urea Nitrogen 19 mg/dL (9-16); Calcium 8.9 mg/dL (8.4-10.2); Carbon Dioxide 28 mmol/L (22-29); Chloride 101 mmol/L (96-108); Creatinine Clr Calc Pharmacy 72.8; Estimated Glomerular Filt Rate > 60; Glucose Random 134 mg/dL (60-115); Potassium 5.5 mmol/L (3.3-5.1); Sodium 137 mmol/L (135-145); Total Protein 6.8 g/dL (6.5-8.0)
[2021-09-28 12:05] LABS: Appearance Urine CLEAR; Color Urine YELLOW; Glucose Urine UA 100 MG/DL (NEG); Leukocyte Esterase Urine NEG (NEG); Nitrite Urine NEG (NEG); UACC Culture Trigger NO; Urine Blood NEG (NEG); Urine Ketones NEG (NEG); Urine Protein 1+ MG/DL (NEG-TRACE)
[2021-09-28 12:20] LABS: RBC Urine 0 /HPF (0); WBC Urine 0 /HPF (0-4)
[2021-09-28 12:21] LABS: Amphetamine Screen Urine Not Detected (Not Detect); Barbiturates, Urine Not Detected (Not Detect); Benzodiazepines Screen Urine Not Detected (Not Detect); Cannabinoid Screen Urine Not Detected (Not Detect); Cocaine Screen Urine Not Detected (Not Detect); Fentanyl, urine Not Detected (Not Detect); Opiate Screen Urine Not Detected (Not Detect); Phencyclidine Screen Urine Not Detected (Not Detect)
[2021-09-28 12:37] LABS: COVID-19 Test Negative (Negative)
--- NOTE | 2021-09-28 12:50 | PC.NURSE ---
pts IV slow to drip, started on pressure bags to ensure fluid accumulation
--- NOTE | 2021-09-28 13:56 | PC.NURSE ---
pt SaO2 to 89% on 2L - increased to 3L and pt came up to 91
[2021-09-28 14:30] LABS: Glucose, Whole Blood 36 mg/dL (60-115)
--- NOTE | 2021-09-28 14:42 | PC.NURSE ---
Addendum entered by María Elena Champion RN 09/28/21 14:44: pt received 50% Dextrose x2 per MD orders at bedside. Vitals HR 100, SaO2 97% on 2L, BP 93/47 RR 23 Original Note: pt diaphoretic, difficult to wake, POC taken read 36. MD notified. Glucose 50 ordered and given per JAN. pt started on d5 0.9% NaCL. MD at bedside. pt continues to be difficult to wake. repeat POC taken 436. to order labs
[2021-09-28] MEDS: Naloxone HCl Nasal 4 MG SPRAY NOSTRILALT (14:48)
--- NOTE | 2021-09-28 14:48 | PC.NURSE ---
repeat POC 334. Rectal temp 96.8
[2021-09-28] MEDS: Dextrose 5 % and 0.9 % NaCl 1,000 ML 125 ML IVCONT (15:00)
[2021-09-28] MEDS: Lactated Ringers 500 ML 1000 ML IV (15:02)
--- NOTE | 2021-09-28 15:17 | PC.NURSE ---
Dr. Joyner at bedside to assess pt. POC Q1 hr for 2 hours, LR bolus for BP 96/63 and D5 0.9% NaCl at 125 hr maintenance
[2021-09-28 15:20] LABS: ABG Refer to POC result
[2021-09-28 15:20] LABS: ABG Base Excess 4.2 mmol/L; ABG HCO3 31 mmol/L (22-26); ABG pCO2 59 mmHg (32-45); ABG pCO2 TC 66 mmHg (32-45); ABG pH 7.32 (7.35-7.45); ABG pH TC 7.29 (7.35-7.45); ABG pO2 104 mmHg (83-108); ABG pO2 TC 120 (83-108)
[2021-09-28 15:27] LABS: Glucose, Whole Blood 334 mg/dL (60-115)
[2021-09-28 15:27] LABS: Glucose, Whole Blood 425 mg/dL (60-115)
[2021-09-28 15:47] LABS: Glucose, Whole Blood 225 mg/dL (60-115)
--- NOTE | 2021-09-28 15:48 | PC.NURSE ---
POC 225 BP 105/65, Dr. Joyner notified, Pt to be placed on Bi-Pap and likely going to ICU
[2021-09-28 16:34] LABS: Glucose, Whole Blood 184 mg/dL (60-115)
[2021-09-28 17:02] LABS: ABG Refer to POC result
[2021-09-28 17:04] LABS: ABG Base Excess 3.5 mmol/L; ABG HCO3 29 mmol/L (22-26); ABG pCO2 51 mmHg (32-45); ABG pCO2 TC 49 mmHg (32-45); ABG pH 7.36 (7.35-7.45); ABG pH TC 7.38 (7.35-7.45); ABG pO2 112 mmHg (83-108); ABG pO2 TC 106 (83-108)
--- NOTE | 2021-09-28 17:30 | PC.NURSE ---
photolithographer at bedside. BiPap removed. pt more able to wake. tremulous reporting he was cold. rectal temp 96.9
[2021-09-28 17:37] LABS: Glucose, Whole Blood 195 mg/dL (60-115)
[2021-09-28] MEDS: iohexoL 350 MG/ML 100 ML INFUS..BTL IV (18:26)
[2021-09-28 18:35] LABS: Glucose, Whole Blood 184 mg/dL (60-115)
--- NOTE | 2021-09-28 18:58 | PC.NURSE ---
pt awake, alert, requesting urinal. VSS. aware
[2021-09-28 19:58] LABS: Influenza A PCR NEGATIVE (Negative); Influenza B PCR NEGATIVE (Negative); Resp Syncy Virus RNA Qual PCR NEGATIVE (Negative); SARS COV2 PCR INHOUSE NEGATIVE (Negative)
[2021-09-28 20:03] LABS: Glucose, Whole Blood 184 mg/dL (60-115)
[2021-09-28 21:16] LABS: Glucose, Whole Blood 162 mg/dL (60-115)
[2021-09-28] MEDS: Piperacillin Sodium/Tazobactam 3.375 GM in 0.9 % Sodium Chloride 50 ML IV (21:32)
[2021-09-28] MEDS: Dextrose 5 % and 0.45 % NaCl 1,000 ML 75 ML IVCONT (21:32)
--- NOTE | 2021-09-28 22:16 | P.HPHOSP_ITS ---
History of Present Illness Date of Service: 09/28/21 Chief Complaint: Lethargy 56-year-old male with a past medical history hypertension, hyperlipidemia, diabetes, COPD, alcohol syndrome, cognitive delay, lives in [facility], schizoaffective disorder, paranoid , history of dysphagia/recurrent aspiration pneumonias presented to the hospital with a chief complaint of drowsiness/lethargy. Patient is a poor historian. Reports that he was feeling drowsy and subsequently was sent to the hospital for further evaluation. Per ER team patient today went out with his girlfriend and after he came back he was very drowsy and lethargic and subsequently the [facility] staff sent him to the hospital for further evaluation. Patient denies any cough or sputum production. Denies any chest pain palpitations lightheadedness or dizziness. Denies any abdominal discomfort or urinary symptoms. ER course: Per ER team patient on presentation was mildly drowsy; CT head showed no acute findings; CT chest showed multifocal pneumonia. Given antibiotics. Admitted to the hospital for further management. Patient followed by IV, alert awake and was on sitting appropriately. I spoke to the patient's [facility], mentioned that patient does not have any healthcare proxy or guardian or Dmoo orders. [facility] Medical History SANDIP (acute kidney injury) Aspiration pneumonia COPD (chronic obstructive pulmonary disease) Depression Diabetes Dysphagia Esophagitis with gastritis alcohol syndrome HTN (hypertension) Hyperkalemia Hyperkalemia Hyperlipidemia Internal hemorrhoids Internal hemorrhoids Iron deficiency anemia Iron deficiency anemia Obstructive sleep apnea Paranoia Schizo-affective schizophrenia Pertinent family history: reviewed Surgical History H/O endoscopy Social History Household Members: Other Housing: Other Housing Other:: [facility] Do you presently have visiting nurse or other home services: No Unable to assess alcohol history related to: Unknown Alcohol intake: never Patient Tobacco Use Status: Current everyday Tobacco user e-Cigarette/Vaping Use: Currently Using Second Hand Smoke Exposure: No Use of substances other than those prescribed or required for medical reasons: No Substance Use Type: Crack/Cocaine Advance Directives: No Advance Directives Information Provided: No service: No Current occupational status: disabled Meds Allergies Allergy/AdvReac Type Severity Reaction Status Date / Time prednisone Allergy Unknown Verified 06/17/21 08:59 Active Medications: Current Medications Acetaminophen (Acetaminophen 325 Mg Tablet) 650 mg PO Q6H PRN PRN Reason: Pain, Mild (Pain Scale 1-3) Albuterol/Ipratropium (Albuterol/Iprat 2.5/0.5mg 3 Ml Ampul.Neb) 3 ml INHALE RQ4H PRN PRN Reason: Shortness of Breath/Wheezing Benzonatate (Benzonatate 100 Mg Capsule) 100 mg PO TID PRN PRN Reason: Cough Dextrose (Dextrose 50 % 25 Gm/50 Ml Vial) 25 gm IVPUSH Q15M PRN; Protocol PRN Reason: per Hypoglycemia Standing Ord. Glucose (Glucose Gel 15 Gm Gel..Gram.) 15 gm PO Q15M PRN; Protocol PRN Reason: per Hypoglycemia Standing Ord. Dextrose/Sodium Chloride (D5ns) 1,000 mls @ 125 mls/hr IVCONT .Q8H [facility] Last Infusion: 09/28/21 21:32 Dose: Infused Documented by: Piperacillin Sod/Tazobactam (Sod 3.375 gm/ Sodium Chloride) 50 mls @ 100 mls/hr IV Q6H [facility] Last Admin: 09/28/21 21:32 Dose: 100 mls/hr Documented by: Dextrose/Sodium Chloride (D51/2ns) 1,000 mls @ 75 mls/hr IVCONT .[id number] [facility] Last Admin: 09/28/21 21:32 Dose: 75 mls/hr Documented by: Vancomycin HCl 750 mg/ Sodium (Chloride) 265 mls @ 265 mls/hr IV Q12H [facility] Insulin Human Lispro (Insulin Lispro 100 Unit/Ml 3 Ml Vial) 0 unit SUBCUT QIDACHS [facility]; Protocol Melatonin (Melatonin 3 Mg Tablet) 6 mg PO BEDTIME PRN PRN Reason: Insomnia Pharmacy Consult (Consult Rx Perform Med Rec) 1 each MISCELLANE ONCE PRN PRN Reason: Consult order Pharmacy Consult (Consult Rx Vancomycin Dosing) 1 each MISCELLANE DAILY PRN PRN Reason: Consult order Senna (Sennosides 8.6 Mg Tablet) 17.2 mg PO BEDTIME PRN PRN Reason: Constipation Sodium Chloride (0.9 % Sodium Chloride Flush 3 Ml Syringe) 3 ml IVFLUSH QSHIFT [facility] Home Medications Medication Instructions Recorded Confirmed Last Taken Type benztropine 1 mg tablet 1 tab PO BID 10/07/20 09/28/21 09/28/21 History budesonide 0.5 mg/2 mL suspension 1 vial INHALATION BID 10/07/20 09/28/21 09/28/21 History for nebulization clozapine 100 mg tablet 3 tab PO BEDTIME 10/07/20 09/28/21 09/27/21 History perphenazine 8 mg tablet 8 mg PO BEDTIME@199910/07/20 09/28/21 09/27/21 History simvastatin 40 mg tablet 40 mg PO BEDTIME 10/07/20 09/28/21 09/27/21 History albuterol sulfate 90 mcg/actuation 2 inh INHALATION QID PRN 04/25/21 09/28/21 09/28/21 History aerosol inhaler (ProAir HFA) ferrous sulfate 324 mg (65 mg 324 mg PO BID 04/25/21 09/28/21 09/28/21 History iron) tablet,delayed release insulin glargine 100 unit/mL (3 40 unit SUBCUT DAILY 04/25/21 09/28/21 09/28/21 History mL) subcutaneous pen (Lantus Solostar U-100 Insulin) ipratropium 0.5 mg-albuterol 3 mg 3 ml INHALATION BID PRN 04/25/21 09/28/21 09/28/21 History (2.5 mg base)/3 mL nebulization soln paliperidone palmitate 156 mg/mL 156 mg IM Q28D 04/25/21 09/28/21 09/15/21 History intramuscular syringe (Invega Sustenna) paroxetine HCl 40 mg tablet 40 mg PO DAILY 04/25/21 09/28/21 09/28/21 History perphenazine 16 mg tablet 16 mg PO BID@0800,199904/25/21 09/28/21 09/28/21 History metformin 1,000 mg tablet 1,000 mg PO BIDWM 06/17/21 09/28/21 09/28/21 History triamcinolone acetonide 0.1 % 1 appl TOPICAL BID 06/17/21 09/28/21 09/28/21 History topical cream ammonium lactate 12 % lotion 1 appl TOPICAL BID 09/28/21 09/28/21 09/28/21 History aspirin 81 mg tablet,delayed 1 tab PO DAILY 09/28/21 09/28/21 09/28/21 History release Physical Exam Vital Signs and Narrative: Vital Signs: Last Vital Signs Temp 97.6 F 09/28/21 21:12 Pulse 94 09/28/21 21:23 Resp 19 09/28/21 21:23 BP 147/91 H 09/28/21 21:23 Pulse Ox 99 09/28/21 21:23 Body Mass Index 25.7 Gen: Appears be in no acute distress HEENT: NCAT, Moist mucosa. Pulmonary: coarse breath sounds, fair air entry CVS: Normal S1-S2 Abdomen: BS+, Soft, Nontender Extremities: Warm well perfused Neuro: Alert and awake. Results Labs CBC and Chem 7: 09/29/21 02:42 09/29/21 02:42 Labs: Laboratory Results - last 24 hr 09/28/21 09/28/21 09/28/21 11:16 11:17 11:17 MCV 75.0 L MCH 22.0 L MCHC 29.4 L RDW 20.4 H Plt Count 265 MPV 10.5 Immature Gran % (Auto) 0.8 H Neut % (Auto) 89.1 H Lymph % (Auto) 3.4 L [place] % (Auto) 6.4 Eos % (Auto) 0.0 Baso % (Auto) 0.3 Lymph # (Auto) 0.5 L [place] # (Auto) 0.9 Eos # (Auto) 0.0 Baso # (Auto) 0.0 Abs Immat Gran (auto) 0.11 H Absolute Neuts (auto) 12.4 H Absolute Nucleated RBC 0.000 Nucleated RBC % (auto) 0.0 O2 Saturation ABG pH at Pt Temp ABG pH (Temp Correct) ABG pCO2 at Pt Temp ABG pCO2 (Temp Corrct ABG pO2 at Pt Temp ABG pO2 (Temp Correct ABG HCO3 ABG Base Excess (Actual) Anion Gap 14 Estim Creat Clear Calc 72.8 Estimated GFR > 60 POC Glucose Random Glucose 134 H D Lactic Acid 2.0 Calcium 8.9 Total Bilirubin 0.3 AST 35 D ALT 29 Alkaline Phosphatase 100 Total Protein 6.8 Albumin 3.8 Urine Color Urine Appearance Urine pH Ur Specific [place] Urine Protein Urine Glucose (UA) Urine Ketones Urine Blood Urine Nitrite Ur Leukocyte Esterase Urine RBC Urine WBC Ur Squamous Epith Cells Urine Bacteria Urine Opiates Screen Urine Fentanyl Screen Ur Barbiturates Screen Ur Phencyclidine Scrn Ur Amphetamines Screen U Benzodiazepines Scrn Urine Cocaine Screen U Marijuana (THC) Screen COVID-19 (ANDERS) COVID-19 Clin Com Influenza Type A (PCR) Influenza Type B (PCR) RSV RNA Qual (PCR) SARS-CoV-2 RNA (RT-PCR) 09/28/21 09/28/21 09/28/21 11:56 11:56 12:14 MCV MCH MCHC RDW Plt Count MPV Immature Gran % (Auto) Neut % (Auto) Lymph % (Auto) [place] % (Auto) Eos % (Auto) Baso % (Auto) Lymph # (Auto) [place] # (Auto) Eos # (Auto) Baso # (Auto) Abs Immat Gran (auto) Absolute Neuts (auto) Absolute Nucleated RBC Nucleated RBC % (auto) O2 Saturation ABG pH at Pt Temp ABG pH (Temp Correct) ABG pCO2 at Pt Temp ABG pCO2 (Temp Corrct ABG pO2 at Pt Temp ABG pO2 (Temp Correct ABG HCO3 ABG Base Excess (Actual) Anion Gap Estim Creat Clear Calc Estimated GFR POC Glucose Random Glucose Lactic Acid Calcium Total Bilirubin AST ALT Alkaline Phosphatase Total Protein Albumin Urine Color YELLOW Urine Appearance CLEAR Urine pH 6.0 Ur Specific [place] 1.020 Urine Protein 1+ H Urine Glucose (UA) 100 H Urine Ketones NEG Urine Blood NEG Urine Nitrite NEG Ur Leukocyte Esterase NEG Urine RBC 0 Urine WBC 0 Ur Squamous Epith Cells NONE Urine Bacteria NONE Urine Opiates Screen Not Detected Urine Fentanyl Screen Not Detected Ur Barbiturates Screen Not Detected Ur Phencyclidine Scrn Not Detected Ur Amphetamines Screen Not Detected U Benzodiazepines Scrn Not Detected Urine Cocaine Screen Not Detected U Marijuana (THC) Screen Not Detected COVID-19 (ANDERS) Negative COVID-19 Clin Com See Note Influenza Type A (PCR) Influenza Type B (PCR) RSV RNA Qual (PCR) SARS-CoV-2 RNA (RT-PCR) 09/28/21 09/28/21 09/28/21 14:26 14:39 14:47 MCV MCH MCHC RDW Plt Count MPV Immature Gran % (Auto) Neut % (Auto) Lymph % (Auto) [place] % (Auto) Eos % (Auto) Baso % (Auto) Lymph # (Auto) [place] # (Auto) Eos # (Auto) Baso # (Auto) Abs Immat Gran (auto) Absolute Neuts (auto) Absolute Nucleated RBC Nucleated RBC % (auto) O2 Saturation ABG pH at Pt Temp ABG pH (Temp Correct) ABG pCO2 at Pt Temp ABG pCO2 (Temp Corrct ABG pO2 at Pt Temp ABG pO2 (Temp Correct ABG HCO3 ABG Base Excess (Actual) Anion Gap Estim Creat Clear Calc Estimated GFR POC Glucose 36 L* 425 H* 334 H Random Glucose Lactic Acid Calcium Total Bilirubin AST ALT Alkaline Phosphatase Total Protein Albumin Urine Color Urine Appearance Urine pH Ur Specific [place] Urine Protein Urine Glucose (UA) Urine Ketones Urine Blood Urine Nitrite Ur Leukocyte Esterase Urine RBC Urine WBC Ur Squamous Epith Cells Urine Bacteria Urine Opiates Screen Urine Fentanyl Screen Ur Barbiturates Screen Ur Phencyclidine Scrn Ur Amphetamines Screen U Benzodiazepines Scrn Urine Cocaine Screen U Marijuana (THC) Screen COVID-19 (ANDERS) COVID-19 Clin Com Influenza Type A (PCR) Influenza Type B (PCR) RSV RNA Qual (PCR) SARS-CoV-2 RNA (RT-PCR) 09/28/21 09/28/21 09/28/21 15:14 15:42 16:30 MCV MCH MCHC RDW Plt Count MPV Immature Gran % (Auto) Neut % (Auto) Lymph % (Auto) [place] % (Auto) Eos % (Auto) Baso % (Auto) Lymph # (Auto) [place] # (Auto) Eos # (Auto) Baso # (Auto) Abs Immat Gran (auto) Absolute Neuts (auto) Absolute Nucleated RBC Nucleated RBC % (auto) O2 Saturation 96.0 ABG pH at Pt Temp 7.32 L ABG pH (Temp Correct) 7.29 L ABG pCO2 at Pt Temp 59 H ABG pCO2 (Temp Corrct 66 H* ABG pO2 at Pt Temp 104 ABG pO2 (Temp Correct 120 H ABG HCO3 31 H ABG Base Excess (Actual) 4.2 Anion Gap Estim Creat Clear Calc Estimated GFR POC Glucose 225 H 184 H Random Glucose Lactic Acid Calcium Total Bilirubin AST ALT Alkaline Phosphatase Total Protein Albumin Urine Color Urine Appearance Urine pH Ur Specific [place] Urine Protein Urine Glucose (UA) Urine Ketones Urine Blood Urine Nitrite Ur Leukocyte Esterase Urine RBC Urine WBC Ur Squamous Epith Cells Urine Bacteria Urine Opiates Screen Urine Fentanyl Screen Ur Barbiturates Screen Ur Phencyclidine Scrn Ur Amphetamines Screen U Benzodiazepines Scrn Urine Cocaine Screen U Marijuana (THC) Screen COVID-19 (ANDERS) COVID-19 Clin Com Influenza Type A (PCR) Influenza Type B (PCR) RSV RNA Qual (PCR) SARS-CoV-2 RNA (RT-PCR) 09/28/21 09/28/21 09/28/21 16:51 17:22 18:30 MCV MCH MCHC RDW Plt Count MPV Immature Gran % (Auto) Neut % (Auto) Lymph % (Auto) [place] % (Auto) Eos % (Auto) Baso % (Auto) Lymph # (Auto) [place] # (Auto) Eos # (Auto) Baso # (Auto) Abs Immat Gran (auto) Absolute Neuts (auto) Absolute Nucleated RBC Nucleated RBC % (auto) O2 Saturation 97.0 ABG pH at Pt Temp 7.36 ABG pH (Temp Correct) 7.38 ABG pCO2 at Pt Temp 51 H ABG pCO2 (Temp Corrct 49 H ABG pO2 at Pt Temp 112 H ABG pO2 (Temp Correct 106 ABG HCO3 29 H ABG Base Excess (Actual) 3.5 Anion Gap Estim Creat Clear Calc Estimated GFR POC Glucose 195 H 184 H Random Glucose Lactic Acid Calcium Total Bilirubin AST ALT Alkaline Phosphatase Total Protein Albumin Urine Color Urine Appearance Urine pH Ur Specific [place] Urine Protein Urine Glucose (UA) Urine Ketones Urine Blood Urine Nitrite Ur Leukocyte Esterase Urine RBC Urine WBC Ur Squamous Epith Cells Urine Bacteria Urine Opiates Screen Urine Fentanyl Screen Ur Barbiturates Screen Ur Phencyclidine Scrn Ur Amphetamines Screen U Benzodiazepines Scrn Urine Cocaine Screen U Marijuana (THC) Screen COVID-19 (ANDERS) COVID-19 Clin Com Influenza Type A (PCR) Influenza Type B (PCR) RSV RNA Qual (PCR) SARS-CoV-2 RNA (RT-PCR) 09/28/21 09/28/21 09/28/21 19:13 19:52 21:11 MCV MCH MCHC RDW Plt Count MPV Immature Gran % (Auto) Neut % (Auto) Lymph % (Auto) [place] % (Auto) Eos % (Auto) Baso % (Auto) Lymph # (Auto) [place] # (Auto) Eos # (Auto) Baso # (Auto) Abs Immat Gran (auto) Absolute Neuts (auto) Absolute Nucleated RBC Nucleated RBC % (auto) O2 Saturation ABG pH at Pt Temp ABG pH (Temp Correct) ABG pCO2 at Pt Temp ABG pCO2 (Temp Corrct ABG pO2 at Pt Temp ABG pO2 (Temp Correct ABG HCO3 ABG Base Excess (Actual) Anion Gap Estim Creat Clear Calc Estimated GFR POC Glucose 184 H 162 H Random Glucose Lactic Acid Calcium Total Bilirubin AST ALT Alkaline Phosphatase Total Protein Albumin Urine Color Urine Appearance Urine pH Ur Specific [place] Urine Protein Urine Glucose (UA) Urine Ketones Urine Blood Urine Nitrite Ur Leukocyte Esterase Urine RBC Urine WBC Ur Squamous Epith Cells Urine Bacteria Urine Opiates Screen Urine Fentanyl Screen Ur Barbiturates Screen Ur Phencyclidine Scrn Ur Amphetamines Screen U Benzodiazepines Scrn Urine Cocaine Screen U Marijuana (THC) Screen COVID-19 (ANDERS) COVID-19 Clin Com Influenza Type A (PCR) NEGATIVE Influenza Type B (PCR) NEGATIVE RSV RNA Qual (PCR) NEGATIVE SARS-CoV-2 RNA (RT-PCR) NEGATIVE Imaging Radiologist's Impressions: Impressions Chest X-Ray 09/28/21 10:39 IMPRESSION: Developing right lung disease as described consistent with pneumonia. Abdomen/Pelvis CT 09/28/21 17:21 IMPRESSION: 1. No bowel obstruction is seen. No ascites is seen. A cause for the patient's abdominal distention is not seen. 2. Incidental note made of right lung infiltrate, splenomegaly, bilateral pelvocaliectasis unchanged, dilated bladder and changes of TURP in the prostate Chest CTA 09/28/21 17:21 IMPRESSION: No evidence of pulmonary emboli. Recurrent right lung multifocal pneumonia. VTE: negative Head CT 09/28/21 17:22 IMPRESSION: No acute intracranial pathology. No significant change since 08/09/2021. Assessment and Plan 56-year-old male with a past medical history hypertension, hyperlipidemia, diabetes, COPD, alcohol syndrome, cognitive delay, lives in [facility], schizoaffective disorder, paranoid , history of dysphagia/recurrent aspiration pneumonias presented to the hospital with a chief complaint of drowsiness/lethargy. Noted to have multifocal pneumonia. Admitted for further management. Drowsiness/lethargy: Patient initially presented to the ER yesterday on morning from the [facility] with drowsiness/lethargy. On initial presentation patient noted to have severe hypoglycemia; patient had CT head done which showed no acute findings; patient received D50 with improvement in glucose level; later in the day patient's mental status improved. And patient was reporting that he did not sleep well hence he is asleep. Patient denies any seizure-like activity. When called [facility] at the time of admitting the patient, [facility] staff unable to provide information as the shift changed. Persistent Hypoglycemia: Patient's blood glucose levels continues to fall to low 60s/70s even on D10 infusion requiring intermittent D50 IV push. Sent hypoglycemia panel, utox Pneumonia: Concern for aspiration. Continue vancomycin and Zosyn. Id c onsult. History of dysphagia: Patient failed Nursing swallow screen. Speech and swallow consult pending. NPO for now. Gentle IV fluids. Hyperkalemia: received IV fluids; repeat Levels improved. DM: Monitor FSGs For all other chronic conditions,home Medications will be continued DVT prophylaxis: SCD boots Code status: Full code Quality Stroke Does the patient have a stroke diagnosis?: No VTE Prior VTE?: No VTE Risk Level:: Medical - moderate - high VTE Device Contraindication: N/A - Device Ordered VTE Drug Contraindication: Treatment Not Indicated
[2021-09-28 22:35] LABS: Glucose, Whole Blood 118 mg/dL (60-115)
[2021-09-28] MEDS: vancomycin HCL 750 MG in 0.9 % Sodium Chloride 250 ML 265 MG IV (22:50)
--- NOTE | 2021-09-29 | ECG_ITS ---
Test Reason : chest pain Blood Pressure : / mmHG Vent. Rate : 092 BPM Atrial Rate : 092 BPM P-R Int : 184 ms QRS Dur : 086 ms QT Int : 370 ms P-R-T Axes : 073 083 057 degrees QTc Int : 457 ms Normal sinus rhythm Normal ECG When compared with ECG of 28-SEP-2021 10:13, No significant change was found Heart rate has decreased Referred By: Yakov Orozco Electronically Signed By:MELODY HURTADO MD
[2021-09-29 00:05] LABS: Glucose, Whole Blood 66 mg/dL (60-115)
--- NOTE | 2021-09-29 00:17 | PC.NURSE ---
this nurse resuming care for pt POC 66 Hospitalist notified of POC pt given IV dextrose per MAR in L arm IV. pt c/o pain at IV site on R forearm. IV site red, warm, and tender to touch. pt has pain at IV site when flushing. IV on R forearm removed by this nurse. pt still has IV in L AC which is patent and intact. aware.
[2021-09-29 00:39] LABS: Glucose, Whole Blood 164 mg/dL (60-115)
[2021-09-29 00:57] LABS: Glucose, Whole Blood 137 mg/dL (60-115)
[2021-09-29 01:19] LABS: Glucose, Whole Blood 116 mg/dL (60-115)
--- NOTE | 2021-09-29 01:20 | PC.NURSE ---
POC taken x3 (every 15min) since IV dextrose given POC 164 POC 137 POC 116 Hospitalist notified
[2021-09-29] MEDS: Dextrose 10 % 1,000 ML 50 ML IVCONT (01:41)
[2021-09-29 02:16] LABS: Glucose, Whole Blood 66 mg/dL (60-115)
--- NOTE | 2021-09-29 02:24 | PC.NURSE ---
d10 rate increased to 75/hr per provider order
[2021-09-29 02:48] LABS: Basophils Percent Auto 0.3 % (0-2); Eosinophils Percent Auto 0.1 % (0-4); Hemoglobin 10.1 g/dl (14.0-18.0); Imm Gran Abs Auto 0.03 X10*3/uL (0.00-0.03); Imm Gran Pct Auto 0.3 % (0.0-0.4); Lymphocytes Absolute Auto 1.2 X10*3/uL (1.2-4.9); Lymphocytes Percent Auto 12.6 % (20-40); MANUAL DIFF FLAG NO; Mean Corpuscular HGB Conc 29.7 g/dl (31.0-36.0); Mean Corpuscular Hemoglobin 22.5 pg (27.0-33.0); Mean Corpuscular Volume 75.9 fL (80.0-98.0); Mean Platelet Volume 9.5 fL (9.4-12.4); Monocytes Absolute Auto 0.8 X10*3/uL (0.1-1.2); Monocytes Percent Auto 8.1 % (2-11); Neutrophils Absolute Auto 7.4 x10*3/uL (2.0-8.3); Neutrophils Percent Auto 78.6 % (45-73); Platelet Count 227 X10*3/uL (160-400); Red Blood Count 4.48 X10*6/uL (4.60-5.80); Red Cell Distribution Width 20.6 % (11.0-16.0); White Blood Count 9.4 X10*3/uL (4.8-10.8)
[2021-09-29 02:52] LABS: Amphetamine Screen Urine Not Detected (Not Detect); Barbiturates, Urine Not Detected (Not Detect); Benzodiazepines Screen Urine Not Detected (Not Detect); Cannabinoid Screen Urine Not Detected (Not Detect); Cocaine Screen Urine Not Detected (Not Detect); Fentanyl, urine Not Detected (Not Detect); Opiate Screen Urine Not Detected (Not Detect); Phencyclidine Screen Urine Not Detected (Not Detect)
[2021-09-29 02:56] VITALS: BP 136/83; PULSE 92; RESP 18; TEMP 36.4; O2SAT 98
[2021-09-29 03:09] LABS: Troponin-I High Sensitivity 6.2 ng/L (<3.5-35.0)
[2021-09-29 03:17] LABS: Anion Gap 10 (12-20); Blood Urea Nitrogen 11 mg/dL (9-16); Carbon Dioxide 27 mmol/L (22-29); Chloride 107 mmol/L (96-108); Creatinine Clr Calc Pharmacy 90.6; Estimated Glomerular Filt Rate > 60; Glucose Random 184 mg/dL (60-115); Potassium 3.8 mmol/L (3.3-5.1); Sodium 140 mmol/L (135-145)
[2021-09-29 03:28] LABS: Glucose, Whole Blood 112 mg/dL (60-115)
[2021-09-29] MEDS: Piperacillin Sodium/Tazobactam 3.375 GM in 0.9 % Sodium Chloride 50 ML IV ×4 (03:31→19:53)
[2021-09-29 03:58] LABS: Glucose, Whole Blood 94 mg/dL (60-115)
--- NOTE | 2021-09-29 04:35 | PC.NURSE ---
pt repositioned/boosted up in bed. fresh warm blankets given. pt denies any pain at this time. awaiting bed assignment. call moreno in reach.
[2021-09-29 05:13] LABS: Glucose, Whole Blood 78 mg/dL (60-115)
[2021-09-29 06:21] LABS: Glucose, Whole Blood 187 mg/dL (60-115)
[2021-09-29 06:38] VITALS: BP 151/76; PULSE 91; RESP 15; TEMP 36.5; O2SAT 96
--- NOTE | 2021-09-29 07:26 | HE.PHANOTE ---
Vanco Consult - Addmend Patient renal function improved. 750 mg Q12H was expected to be subtheraptuetic. Increased dose to 1000 mg Q12H. This will created an expected AUC of 489 with a trough of 14.7. Sulma Krishna, MelissaD
[2021-09-29 07:47] LABS: Glucose, Whole Blood 131 mg/dL (60-115)
--- NOTE | 2021-09-29 08:31 | P.CDIC_ITS ---
CDI Concurrent Query Documentation Clarification: PHYSICIAN'S DOCUMENTATION REQUEST Date of Query: 09/29/21 0832 Patient Name: Jayce Vanegas Admit Date: 09/28/21 Dear Doctor, A review of the medical record indicates additional documentation may be needed. Please review below and update the documentation accordingly. Clinical Indicators: Risk Factors/Clinical Indicators/Treatments Shortness of breath Respiratory rate 17 - 29 SAT 89&% Room air SAT 96% 3L [place] ED Note 09/28/21: Hypoxia Recognized standard criteria for respiratory failure includes: (Source: [facility] Sep 2013) ABGs (1 or more) Symptoms: ? PO2 <60 or RA SpO2 <91% ? Tachypnea, SOB, dyspnea ? PcO2 >50 and pH <7.35 ? Pallor or cyanosis ? pO2 decrease or pcO2 increase ? Anxiety or restlessness by 10 mm/Hg from baseline if known ? Use of accessory muscles ? Retractions (grunting in newborns) ? Unable to speak in complete sentences P/F ratio < 300 Supplemental O2 requirement of 40% or more Intubation is not required Clarify which of the following accurately represents the patient's respiratory status: * Acute respiratory failure * Hypoxia * Other (please specify) * Unable to determine Use of terms such as suspected, likely, concern for, or probable (associated with a specific diagnosis that is being evaluated, monitored, or treated as if it exists) are acceptable and can be coded in the inpatient setting, when documented at the time of discharge. Thank you, Sulma Perez RN Extension: [phone] Please use your independent medical judgment in providing your response. THIS QUERY IS PART OF THE PERMANENT MEDICAL RECORD Provider Response: Acute Respiratory Failure Other Diagnosis: Acute hypoxic respiratory failure
[2021-09-29] MEDS: Dextrose 5 % and 0.45 % NaCl 1,000 ML 100 ML IVCONT ×2 (08:53→20:45)
--- NOTE | 2021-09-29 09:18 | PC.NURSE ---
pt sleeping on and off, easily awaken and responds when spoken to, pt denies pain. pt continuously ringing and asking for food, pt reminded that he is NPO each time. IV fluids infusing without difficult. no insulin coverage given per protocol. pt denies dizziness/headache. no sob/difficulty breathing. pt awaiting bed assignment.
[2021-09-29] MEDS: Insulin Glargine,Hum.rec.anlog 100 UNIT/ML 10 ML VIAL 40 UNIT SUBCUT (09:45)
--- NOTE | 2021-09-29 09:53 | PC.NURSE ---
alterations manager [facility] called for update on pt. pt aware.
[2021-09-29] MEDS: vancomycin HCL 1,000 MG in 0.9 % Sodium Chloride 250 ML 270 MG IV ×2 (11:00→21:18)
[2021-09-29 11:45] LABS: Glucose, Whole Blood 56 mg/dL (60-115)
[2021-09-29 11:56] LABS: Glucose, Whole Blood 160 mg/dL (60-115)
--- NOTE | 2021-09-29 12:05 | PC.NURSE ---
report given to receiving nurse LUANN Koch. pt will be transported to room 378 by medieval english literature professor. pt alert and oriented.
--- NOTE | 2021-09-29 13:22 | HO.PM.IMPN ---
Subjective Subjective Date of Service: 09/29/21 Interval History: Seen in f/u for sepsis, aspriation pneumonia--no respiratory distress, failed bedside swallow eval Review of Systems No fever, no chells, no sob Physical Exam Vital Signs: Vital Signs: Last Vital Signs Temp 97.7 F 09/29/21 06:38 Pulse 91 09/29/21 06:38 Resp 15 09/29/21 06:38 BP 151/76 H 09/29/21 06:38 Pulse Ox 96 09/29/21 06:38 Body Mass Index 25.7 Const: Other: General: AO X 2, no acute distress Resp: bilateral rhonchi CVS: S1,S2,RRR GI: +BS, NT, no distention Skin: No rash Neuro: motor grossly intact Psych: flat affect Objective Data Active Medications Acetaminophen (Acetaminophen 325 Mg Tablet) 650 mg PO Q6H PRN PRN Reason: Pain, Mild (Pain Scale 1-3) Albuterol Sulfate (Albuterol Sulfate 90 Mcg 8 Gm Inhaler) 2 puff INHALE QID PRN PRN Reason: shortness of breath or wheezing Albuterol/Ipratropium (Albuterol/Iprat 2.5/0.5mg 3 Ml Ampul.Neb) 3 ml INHALE RQ4H PRN PRN Reason: Shortness of Breath/Wheezing Albuterol/Ipratropium (Albuterol/Iprat 2.5/0.5mg 3 Ml Ampul.Neb) 3 ml INHALE BID PRN PRN Reason: Wheezing Aspirin (Aspirin Enteric Coated 81 Mg Tablet.Dr) 81 mg PO DAILY [facility] Last Admin: 09/29/21 08:47 Dose: Not Given Documented by: KIESHA Non-Admin Reason: NPO Atorvastatin Calcium (Atorvastatin Calcium 20 Mg Tablet) 20 mg PO BEDTIME ELISSA Benzonatate (Benzonatate 100 Mg Capsule) 100 mg PO TID PRN PRN Reason: Cough Benztropine Mesylate (Benztropine Mesylate 1 Mg Tablet) 1 mg PO BID [facility] Last Admin: 09/29/21 08:47 Dose: Not Given Documented by: KIESHA Non-Admin Reason: NPO Clozapine (Clozapine 100 Mg Tablet) 300 mg PO BEDTIME ELISSA Dextrose (Dextrose 50 % 25 Gm/50 Ml Vial) 25 gm IVPUSH Q15M PRN; Protocol PRN Reason: per Hypoglycemia Standing Ord. Last Admin: 09/29/21 11:34 Dose: 25 gm Documented by: KIESHA Dextrose (Dextrose 50 % 25 Gm/50 Ml Vial) 25 gm IVPUSH Q15M PRN; Protocol PRN Reason: per Hypoglycemia Standing Ord. Ferrous Sulfate (Ferrous Sulfate 324 Mg Tablet.Dr) 324 mg PO BID [facility] Last Admin: 09/29/21 08:49 Dose: Not Given Documented by: KIESHA Non-Admin Reason: NPO Glucose (Glucose Gel 15 Gm Gel..Gram.) 15 gm PO Q15M PRN; Protocol PRN Reason: per Hypoglycemia Standing Ord. Glucose (Glucose Gel 15 Gm Gel..Gram.) 15 gm PO Q15M PRN; Protocol PRN Reason: per Hypoglycemia Standing Ord. Piperacillin Sod/Tazobactam (Sod 3.375 gm/ Sodium Chloride) 50 mls @ 100 mls/hr IV Q6H [facility] Last Infusion: 09/29/21 09:41 Dose: 0 mls/hr Documented by: KIESHA Vancomycin HCl 1,000 mg/ (Sodium Chloride) 270 mls @ 270 mls/hr IV Q12H [facility] Last Infusion: 09/29/21 12:14 Dose: 0 mls/hr Documented by: VANDANA Dextrose/Sodium Chloride (D51/2ns) 1,000 mls @ 100 mls/hr IVCONT .Q10H [facility] Last Admin: 09/29/21 08:53 Dose: 100 mls/hr Documented by: KIESHA Insulin Glargine (Insulin Glargine,Hum.Rec.Anlog 100 Unit/Ml 10 Ml Vial) 40 unit SUBCUT DAILY [facility] Last Admin: 09/29/21 09:45 Dose: 40 unit Documented by: KIESHA Insulin Human Lispro (Insulin Lispro 100 Unit/Ml 3 Ml Vial) 0 unit SUBCUT QIDACHS [facility]; Protocol Last Admin: 09/29/21 11:51 Dose: Not Given Documented by: KIESHA Non-Admin Reason: No Insulin Coverage Insulin Human Lispro (Insulin Lispro 100 Unit/Ml 3 Ml Vial) 0 unit SUBCUT QIDACHS [facility]; Protocol Last Admin: 09/29/21 11:50 Dose: Not Given Documented by: KIESHA Non-Admin Reason: No Insulin Coverage Magnesium Oxide (Magnesium Oxide 400 Mg Tablet) 400 mg PO BIDPC [facility] Last Admin: 09/29/21 08:47 Dose: Not Given Documented by: KIESHA Non-Admin Reason: NPO Melatonin (Melatonin 3 Mg Tablet) 6 mg PO BEDTIME PRN PRN Reason: Insomnia Nitroglycerin (Nitroglycerin 0.4 Mg Tab.Subl) 0.4 mg SUBLINGUAL Q5MX3 PRN PRN Reason: Chest Pain Paliperidone Palmitate (Paliperidone Palmitate 156 Mg/Ml Syringe) 156 mg IM Q28D [facility] Paroxetine HCl (Paroxetine Hcl 40 Mg Tablet) 40 mg PO DAILY [facility] Last Admin: 09/29/21 08:48 Dose: Not Given Documented by: KIESHA Non-Admin Reason: NPO Perphenazine (Perphenazine 8 Mg Tablet) 8 mg PO BEDTIME@1999 [facility] Perphenazine (Perphenazine 8 Mg Tablet) 16 mg PO BID@799,1999 [facility] Last Admin: 09/29/21 08:47 Dose: Not Given Documented by: KIESHA Non-Admin Reason: NPO Pharmacy Consult (Consult Rx Perform Med Rec) 1 each MISCELLANE ONCE PRN PRN Reason: Consult order Pharmacy Consult (Consult Rx Vancomycin Dosing) 1 each MISCELLANE DAILY PRN PRN Reason: Consult order Senna (Sennosides 8.6 Mg Tablet) 17.2 mg PO BEDTIME PRN PRN Reason: Constipation Sodium Chloride (0.9 % Sodium Chloride Flush 3 Ml Syringe) 3 ml IVFLUSH QSHIFT [facility] Last Admin: 09/29/21 08:46 Dose: Not Given Documented by: KIESHA Non-Admin Reason: IV Running Labs CBC & Chem 7: 09/29/21 02:42 09/29/21 02:42 Assessment and Plan (1) Aspiration pneumonia: Status: Acute (2) Sepsis: Status: Acute (3) Acute respiratory failure: Status: Acute Assessment and Plan: 56-year-old male with a past medical history hypertension, hyperlipidemia, diabetes, COPD, alcohol syndrome, cognitive delay, lives in assisted, schizoaffective disorder, paranoid , history of dysphagia/recurrent aspiration pneumonias presented to the hospital with f drowsiness/lethargy and found to have hypoglycemia and multifocal pneumonia. ?Drowsiness/lethargy:? likely related to hypoglycemia and is now better Hypoglycemia:lieky related to long acting insulin and poor nutrition, hold insuling IV glucose and continue monitoring Pneumonia:?likely aspiration type, on Zosyn and Vanco if no evidence of MRSA by tomorrow, will discontinue History of dysphagia:? Patient failed Nursing swallow screen.? Speech and swallow consult pending.? NPO for now.? Hyperkalemia: mild and resolved. DM: Hold all meds d/t hypoglycemia, For all other chronic conditions,home? Medications will be continued Anemia chronic, likely of chronic didease, monitor, DVT prophylaxis:? add levenox Code status:? Full code Quality Stroke Does the patient have a stroke diagnosis?: No VTE Prior VTE?: No VTE Risk Level:: Medical - moderate - high VTE Device Contraindication: N/A - Device Ordered VTE Drug Contraindication: Treatment Not Indicated
[2021-09-29 13:23] VITALS: BP 169/87; PULSE 92; RESP 18; TEMP 36.6; O2SAT 98
--- NOTE | 2021-09-29 14:43 | MHC.CM.PN ---
CM MET WITH PT WHO REPORTS HE RESIDES IN A [facility] INTERMEDIATE PT REPORTS HE HAS VNA SERVICES THROUGH [facility] PT DENIES USE OF DME PT DOES NOT HAVE A HCP OR GUARDIAN HE IS HIS OWN PERSON PT PROVIDED THE CONTACT NAMES FOR INTERMEDIATE STAFF: RACHELE [phone] PIETER [phone] IMM DELIVERED, COPY SENT TO MEDICAL RECORDS CURRENT DC PLAN, RETURN TO INTERMEDIATE, [facility]UME [facility] INTERMEDIATE STAFF TO TRANSPORT
[2021-09-29 15:58] VITALS: BP 167/96; PULSE 92; RESP 18; TEMP 36.4; O2SAT 96
--- NOTE | 2021-09-29 16:28 | MHC.SL.SWA ---
Speech Pathologist Impression: Risk of Aspiration Oralpharyngeal Dysphagia Risk of Aspiration Due to: History of Pneumonia Reduced Cognition Dysphasia Diet Status: Upgrade Liquid Consistency and Strategies for Safe Swallow: Liquid Intake Recommendation: Thin Liquid Intake Strategies: Small Sips No Straws Solid Food Consistency: Dietary Recommendations: Pureed (NDD1) Additional Modifications to Solid Foods: Recommend resume patient's baseline PUREED (NDD1) solids and THIN liquids with pills CRUSHED in PUREE. Patient may need assistance with tray set up and intermittently throughout meals. Due to patient's impulsive eating behaviors, at the very least recommend TOTAL supervision during PO intake to monitor patient's tolerance and ensure aspiration precautions. PAPER PROCESSING MACHINE HELPER to return tomorrow morning to re-assess potential for upgrade. Oral Medication Intake: Crushed with Puree Compensatory Strategies and Precautions to be Taken for Safe Swallow: Sitting Upright (90 deg) No Straw Liquids from Cup Liquids from Spoon Small Bites and Sips Alternate Liquids/Solids Rate of Ingestion Change Oral Check Supervision While Eating and Drinking for Safe Swallow: Total Supervision (1:1) Swallowing Recommended Treatments: Compens. Strategy Educat. Recommendation for Speech: Inpatient Speech Therapy Comment: Frequency/Duration: Daily M-F Prepress Specialist Clinican/Clinical Fellow: Yes: Evelyn Rodríguez Supervisory Statement: I have reviewed and agree with the student/clinical fellow's documentation: N/A Speech Language Pathologist: Margaux Blakely M.A., CCC-PAPER PROCESSING MACHINE HELPER
[2021-09-29 16:37] LABS: Glucose, Whole Blood 78 mg/dL (60-115)
[2021-09-29 19:43] VITALS: BP 151/80; PULSE 102; RESP 18; TEMP 36.3; O2SAT 93
[2021-09-29] MEDS: Magnesium Oxide 400 MG TABLET PO (19:53)
[2021-09-29] MEDS: Ferrous Sulfate 324 MG TABLET.DR PO (19:54)
[2021-09-29] MEDS: cloZAPine 100 MG TABLET 300 MG PO (19:54)
[2021-09-29] MEDS: Perphenazine 8 MG TABLET PO (19:54)
[2021-09-29] MEDS: Atorvastatin Calcium 20 MG TABLET PO (19:54)
[2021-09-29] MEDS: Benztropine Mesylate 1 MG TABLET PO (19:54)
[2021-09-29] MEDS: Melatonin 3 MG TABLET 6 MG PO (19:55)
[2021-09-29] MEDS: Perphenazine 8 MG TABLET 16 MG PO (19:55)
[2021-09-29] MEDS: 0.9 % Sodium Chloride Flush 3 ML SYRINGE IVFLUSH (19:58)
[2021-09-29 20:15] LABS: Glucose, Whole Blood 238 mg/dL (60-115)
[2021-09-29] MEDS: Insulin Lispro 100 UNIT/ML 3 ML VIAL SUBCUT (21:17)
[2021-09-30] VITALS (7 sets, daily range): BP systolic 110–131; BP diastolic 70–82; PULSE 92–106; RESP 18–22; TEMP 36.2–36.9; O2SAT 90–98
[2021-09-30] MEDS: Piperacillin Sodium/Tazobactam 3.375 GM in 0.9 % Sodium Chloride 50 ML IV ×4 (02:14→21:02)
[2021-09-30] MEDS: Dextrose 5 % and 0.45 % NaCl 1,000 ML 100 ML IVCONT (05:35)
[2021-09-30 05:41] LABS: Hematocrit 37.2 % (42.0-52.0); Hemoglobin 11.1 g/dl (14.0-18.0); Mean Corpuscular HGB Conc 29.8 g/dl (31.0-36.0); Mean Corpuscular Hemoglobin 22.2 pg (27.0-33.0); Mean Corpuscular Volume 74.4 fL (80.0-98.0); Mean Platelet Volume 10.2 fL (9.4-12.4); Platelet Count 259 X10*3/uL (160-400); Red Cell Distribution Width 20.8 % (11.0-16.0); White Blood Count 5.2 X10*3/uL (4.8-10.8)
[2021-09-30 07:48] LABS: Glucose, Whole Blood 192 mg/dL (60-115)
[2021-09-30] MEDS: Ferrous Sulfate 324 MG TABLET.DR PO ×2 (08:22→21:01)
[2021-09-30] MEDS: Insulin Glargine,Hum.rec.anlog 100 UNIT/ML 10 ML VIAL 40 UNIT SUBCUT (08:22)
[2021-09-30] MEDS: Aspirin Enteric Coated 81 MG TABLET.DR PO (08:22)
[2021-09-30] MEDS: PARoxetine HCL 40 MG TABLET PO (08:22)
[2021-09-30] MEDS: Benztropine Mesylate 1 MG TABLET PO ×2 (08:22→21:02)
[2021-09-30] MEDS: Perphenazine 8 MG TABLET 16 MG PO ×2 (08:22→21:01)
[2021-09-30] MEDS: 0.9 % Sodium Chloride Flush 3 ML SYRINGE IVFLUSH ×2 (08:23→17:25)
[2021-09-30] MEDS: Insulin Lispro 100 UNIT/ML 3 ML VIAL SUBCUT ×3 (08:23→17:24)
[2021-09-30] MEDS: Magnesium Oxide 400 MG TABLET PO ×2 (08:24→17:25)
[2021-09-30 08:54] LABS: Neutrophils Absolute Auto 3.3 x10*3/uL (2.0-8.3)
[2021-09-30 09:44] LABS: Creatinine Clr Calc Pharmacy 82.2; Estimated Glomerular Filt Rate > 60
--- NOTE | 2021-09-30 09:46 | P.PNIM_ITS ---
Subjective Subjective Date of Service: 09/30/21 Interval History: Seen in f/u for sepsis, aspriation pneumonia--no respiratory distress, seems comfortable, no hypoxia, no fever Physical Exam Vital Signs: Vital Signs: Last Vital Signs Temp 97.6 F 09/30/21 08:00 Pulse 99 09/30/21 08:00 Resp 20 09/30/21 08:00 BP 121/81 09/30/21 08:00 Pulse Ox 94 09/30/21 08:00 Body Mass Index 25.7 Const: Other: General: AO X 2, no acute distress, comfortable Resp: bilateral rhonchi, breathing easy CVS: S1,S2,RRR GI: +BS, NT, no distention Skin: No rash Neuro: motor grossly intact Psych: flat affect Objective Data Active Medications Acetaminophen (Acetaminophen 325 Mg Tablet) 650 mg PO Q6H PRN PRN Reason: Pain, Mild (Pain Scale 1-3) Albuterol Sulfate (Albuterol Sulfate 90 Mcg 8 Gm Inhaler) 2 puff INHALE QID PRN PRN Reason: shortness of breath or wheezing Albuterol/Ipratropium (Albuterol/Iprat 2.5/0.5mg 3 Ml Ampul.Neb) 3 ml INHALE RQ4H PRN PRN Reason: Shortness of Breath/Wheezing Albuterol/Ipratropium (Albuterol/Iprat 2.5/0.5mg 3 Ml Ampul.Neb) 3 ml INHALE BID PRN PRN Reason: Wheezing Aspirin (Aspirin Enteric Coated 81 Mg Tablet.) 81 mg PO DAILY [facility] Last Admin: 09/30/21 08:22 Dose: 81 mg Documented by: VANDANA Atorvastatin Calcium (Atorvastatin Calcium 20 Mg Tablet) 20 mg PO BEDTIME [facility] Last Admin: 09/29/21 19:54 Dose: 20 mg Documented by: NAY Benzonatate (Benzonatate 100 Mg Capsule) 100 mg PO TID PRN PRN Reason: Cough Benztropine Mesylate (Benztropine Mesylate 1 Mg Tablet) 1 mg PO BID [facility] Last Admin: 09/30/21 08:22 Dose: 1 mg Documented by: VANDANA Clozapine (Clozapine 100 Mg Tablet) 300 mg PO BEDTIME [facility] Last Admin: 09/29/21 19:54 Dose: 300 mg Documented by: NAY Dextrose (Dextrose 50 % 25 Gm/50 Ml Vial) 25 gm IVPUSH Q15M PRN; Protocol PRN Reason: per Hypoglycemia Standing Ord. Last Admin: 09/29/21 11:34 Dose: 25 gm Documented by: KIESHA Dextrose (Dextrose 50 % 25 Gm/50 Ml Vial) 25 gm IVPUSH Q15M PRN; Protocol PRN Reason: per Hypoglycemia Standing Ord. Ferrous Sulfate (Ferrous Sulfate 324 Mg Tablet.) 324 mg PO BID [facility] Last Admin: 09/30/21 08:22 Dose: 324 mg Documented by: VANDANA Glucose (Glucose Gel 15 Gm Gel..Gram.) 15 gm PO Q15M PRN; Protocol PRN Reason: per Hypoglycemia Standing Ord. Glucose (Glucose Gel 15 Gm Gel..Gram.) 15 gm PO Q15M PRN; Protocol PRN Reason: per Hypoglycemia Standing Ord. Piperacillin Sod/Tazobactam (Sod 3.375 gm/ Sodium Chloride) 50 mls @ 100 mls/hr IV Q6H [facility] Last Infusion: 09/30/21 09:43 Dose: 0 mls/hr Documented by: VANDANA Vancomycin HCl 1,000 mg/ (Sodium Chloride) 270 mls @ 270 mls/hr IV Q12H [facility] Last Infusion: 09/29/21 22:25 Dose: 0 mls/hr Documented by: DANIEL Dextrose/Sodium Chloride (D51/2ns) 1,000 mls @ 100 mls/hr IVCONT .Q10H [facility] Last Admin: 09/30/21 05:35 Dose: 100 mls/hr Documented by: NAY Insulin Glargine (Insulin Glargine,Hum.Rec.Anlog 100 Unit/Ml 10 Ml Vial) 40 unit SUBCUT DAILY [facility] Last Admin: 09/30/21 08:22 Dose: 40 unit Documented by: VANDANA Insulin Human Lispro (Insulin Lispro 100 Unit/Ml 3 Ml Vial) 0 unit SUBCUT QIDACHS [facility]; Protocol Last Admin: 09/30/21 08:23 Dose: 2 unit Documented by: VANDANA Magnesium Oxide ([facility]esium [facility]ide 400 Mg Tablet) [facility] Last Admin: 09/29/21 19:53 Dose: 400 mg Documented by: NAY Melatonin (Melatonin 3 Mg Tablet) 6 mg PO BEDTIME PRN PRN Reason: Insomnia Last Admin: 09/29/21 19:55 Dose: 6 mg Documented by: NAY Nitroglycerin (Nitroglycerin 0.4 Mg Tab.Subl) 0.4 mg SUBLINGUAL Q5MX3 PRN PRN Reason: Chest Pain Paliperidone Palmitate (Paliperidone Palmitate 156 Mg/Ml Syringe) 156 mg IM Q28D [facility] Paroxetine HCl (Paroxetine Hcl 40 Mg Tablet) 40 mg PO DAILY [facility] Last Admin: 09/30/21 08:22 Dose: 40 mg Documented by: VANDANA Perphenazine (Perphenazine 8 Mg Tablet) 8 mg PO BEDTIME@1999 [facility] Last Admin: 09/29/21 19:54 Dose: 8 mg Documented by: NAY Perphenazine (Perphenazine 8 Mg Tablet) 16 mg PO BID@ [facility] Last Admin: 09/30/21 08:22 Dose: 16 mg Documented by: VANDANA Pharmacy Consult (Consult Rx Perform Med Rec) 1 each MISCELLANE ONCE PRN PRN Reason: Consult order Pharmacy Consult (Consult Rx Vancomycin Dosing) 1 each MISCELLANE DAILY PRN PRN Reason: Consult order Senna (Sennosides 8.6 Mg Tablet) 17.2 mg PO BEDTIME PRN PRN Reason: Constipation Sodium Chloride (0.9 % Sodium Chloride Flush 3 Ml Syringe) 3 ml IVFLUSH QSHIFT [facility] Last Admin: 09/30/21 08:23 Dose: 3 ml Documented by: VANDANA Labs CBC & Chem 7: 09/30/21 05:22 09/30/21 08:58 Labs: Laboratory Results - last 24 hr 09/29/21 09/29/21 09/29/21 11:23 11:53 16:02 MCV MCH MCHC RDW Plt Count MPV Absolute Neuts (auto) Absolute Nucleated RBC Nucleated RBC % (auto) Estim Creat Clear Calc Estimated GFR POC Glucose 56 L* 160 H 78 09/29/21 09/30/21 09/30/21 19:46 05:22 07:33 MCV 74.4 L MCH 22.2 L MCHC 29.8 L RDW 20.8 H Plt Count 259 MPV 10.2 Absolute Neuts (auto) 3.3 Absolute Nucleated RBC 0.000 Nucleated RBC % (auto) 0.0 Estim Creat Clear Calc Estimated GFR POC Glucose 238 H 192 H 09/30/21 08:58 MCV MCH MCHC RDW Plt Count MPV Absolute Neuts (auto) Absolute Nucleated RBC Nucleated RBC % (auto) Estim Creat Clear Calc 82.2 Estimated GFR > 60 POC Glucose Microbiology Microbiology Results: Microbiology 09/28/21 11:33 Blood Culture - Preliminary Blood - Venous No growth after 24 hours. 09/28/21 11:17 Blood Culture - Preliminary Blood - Venous No growth after 24 hours. Assessment and Plan (1) Aspiration pneumonia: Status: Acute (2) Sepsis: Status: Acute (3) Acute respiratory failure: Status: Acute Assessment and Plan: 56-year-old male with a past medical history hypertension, hyperlipidemia, diabetes, COPD, alcohol syndrome, cognitive delay, lives in retirement, schizoaffective disorder, paranoid , history of dysphagia/recurrent aspiration pneumonias presented to the hospital with f drowsiness/lethargy and found to have hypoglycemia and multifocal pneumonia. ?Drowsiness/lethargy/metabolic encepohalopathy--d/t hypoglycemia, hypoxia and pneumonia--Resovled Hypoglycemia:lieky related to long acting insulin and poor nutrition, hold insulin, DC IVF with glucose and observe Pneumonia:?likely aspiration type, on Zosyn and Vanco, culture so far negative. DC Vancomycin and when medically reaady Augmentin for dishcarge History of dysphagia:? Patient failed Nursing swallow screen.? Speech and swallow recommend pureee diet Hyperkalemia: mild and resolved. DM: Hold all meds d/t hypoglycemia, For all other chronic conditions,home? Medications will be continued Anemia chronic, likely of chronic didease, monitor, DVT prophylaxis:? add levenox Code status:? Full code, to return to retirement when medically ready Quality Stroke Does the patient have a stroke diagnosis?: No VTE Prior VTE?: No VTE Risk Level:: Medical - moderate - high VTE Device Contraindication: N/A - Device Ordered VTE Drug Contraindication: Treatment Not Indicated
[2021-09-30 09:48] LABS: Vancomycin Trough 9.4 mcg/mL (10.0-20.0)
[2021-09-30 11:12] LABS: Glucose, Whole Blood 185 mg/dL (60-115)
--- NOTE | 2021-09-30 12:32 | MHC.SL.DTX ---
Dysphagia Diet modifications: Last documented Solid diet consistencies: Pureed (NDD1) Last documented Liquid consistency: Thin Last documented Medication Administration: crushed in puree Changes made to current diet?: No Liquid Consistency and Strategies: Liquid Intake Recommendation: Thin Compensatory Strategies for Safe Swallow: Small Sips No Straws Compensatory Strategies for Safe Swallow(b): Sitting Upright (90 deg) No Straw Liquids from Cup Small Bites and Sips Alternate Liquids/Solids Rate of Ingestion Change Oral Check Solid Food Consistency: Dietary Recommendations: Pureed (NDD1) Oral Medication Intake: Crushed with Puree Strategies and Precautions to be Taken for Safe Swallow: Sitting Upright (90 deg) No Straw Liquids from Cup Small Bites and Sips Alternate Liquids/Solids Rate of Ingestion Change Oral Check Supervision While Eating and/Drinking: Total Supervision (1:1) Swallowing Recommended Treatments: Compens. Strategy Educat. Level of Impact on: Daily activities: Severe Interpersonal interactions: Education: Severe Employment: Severe Community: Severe Prognosis for Improvement: Guarded Recommendation for Speech: Inpatient Speech Therapy M-F Treatment: Pt was seen for dysphagia treatment in his room following breakfast. RN present, attempting to locate pt's vein to place an IV. Pt reported that he fed himself breakfast despite recommendation for 1:1 assist/supervision. Current diet consistency NDD1 PUREED solids and THIN liquids. Pt requested to advance from pureed solids. Reviewed rationale for the recommendation for pureed solids. Pt demonstrated poor insight into his deficits, e.g. his recurrent aspiration pneumonia and non-compliance with his baseline diet of pureed solids, which was explained to the pt. Pt reported he was hungry. He consumed an entire container of pudding for which he required max verbal and tactile cues for use of an appropriate bolus size. Pt was noted to try to place another bolus in his oral cavity before he swallowed the previous one. Extensive education was provided though pt demonstrated poor carryover of the information presented. No overt s/s aspiration were noted with intake of pt's current diet consistency. Continue with current diet consistency NDD1 PUREED solids, THIN liquids, and MEDS CRUSHED in puree. Pt continues to require strict aspiration precautions and 1:1 assist/supervision for cuing for the use of safe swallowing strategies given his baseline impaired cognition and impulsivity. TREE SAPPER will continue to follow pt throughout his stay to determine the safest and least restrictive diet consistency. : Account Manager Relief Clinican/Clinical Fellow: No Supervisory Statement: I have reviewed and agree with the student/clinical fellow's documentation: N/A Speech Language Pathologist: Ambreen Quintero M.A., CCC-TREE SAPPER
--- NOTE | 2021-09-30 14:59 | MHC.CM.PN ---
EMR REVIEWED, PER HOSPITALIST PT WILL REMAIN ON IV ABX AND CHANGE TO ORAL ABX ON D/C, PT HAS BEEN HYPOGLYCEMI, IVF D/C'D AND CONT TO MONITOR, POSSIBLE W/E D/C. D/C PLAN: RETURN TO [facility] RETIREMENT W/[facility], [facility] STAFF FOR TRANSPORT
[2021-09-30 16:24] LABS: Glucose, Whole Blood 214 mg/dL (60-115)
[2021-09-30 20:56] LABS: Glucose, Whole Blood 134 mg/dL (60-115)
[2021-09-30] MEDS: cloZAPine 100 MG TABLET 300 MG PO (21:02)
[2021-09-30] MEDS: Atorvastatin Calcium 20 MG TABLET PO (21:02)
[2021-09-30] MEDS: Perphenazine 8 MG TABLET PO (21:02)
[2021-10-01] VITALS (7 sets, daily range): BP systolic 121–138; BP diastolic 68–87; PULSE 87–99; RESP 17–19; TEMP 36–36.9; O2SAT 92–98
[2021-10-01] MEDS: 0.9 % Sodium Chloride Flush 3 ML SYRINGE IVFLUSH ×4 (00:22→23:58)
[2021-10-01] MEDS: Piperacillin Sodium/Tazobactam 3.375 GM in 0.9 % Sodium Chloride 50 ML IV ×2 (04:30→08:37)
[2021-10-01 07:59] LABS: Glucose, Whole Blood 168 mg/dL (60-115)
[2021-10-01] MEDS: Insulin Lispro 100 UNIT/ML 3 ML VIAL SUBCUT ×3 (08:36→22:00)
[2021-10-01] MEDS: Magnesium Oxide 400 MG TABLET PO ×2 (08:37→19:38)
[2021-10-01] MEDS: Aspirin Enteric Coated 81 MG TABLET.DR PO (08:37)
[2021-10-01] MEDS: Benztropine Mesylate 1 MG TABLET PO ×2 (08:37→21:59)
[2021-10-01] MEDS: Perphenazine 8 MG TABLET 16 MG PO ×2 (08:37→22:07)
[2021-10-01] MEDS: PARoxetine HCL 40 MG TABLET PO (08:37)
[2021-10-01] MEDS: Insulin Glargine,Hum.rec.anlog 100 UNIT/ML 10 ML VIAL 40 UNIT SUBCUT (08:38)
--- NOTE | 2021-10-01 11:18 | P.DS_ITS ---
DS: Providers Provider Date of Service: 10/01/21 Date of admission: 09/28/21 20:43 Primary care physician: Kelvin Wilson NP Consults: 09/28/21 20:42 Consult to Infectious Diseases Routine Consulting Provider: Selam Hinojosa Reason for consultation: multifocal pna DS: Diagnosis Discharge Diagnosis (1) Aspiration pneumonia: Status: Acute (2) Sepsis: Status: Acute (3) Acute respiratory failure: Status: Acute DS: Summary Hospital Course Hospital Course: admission HPI Chief Complaint: Lethargy 56-year-old male with a past medical history hypertension, hyperlipidemia, diabetes, COPD, alcohol syndrome, cognitive delay, lives in senior care, schizoaffective disorder, paranoid , history of dysphagia/recurrent aspiration pneumonias presented to the hospital with a chief complaint of drowsiness/lethargy. Patient is a poor historian. Reports that he was feeling drowsy and subsequently was sent to the hospital for further evaluation. Per ER team patient today went out with his girlfriend and after he came back he was very drowsy and lethargic and subsequently the senior care staff sent him to the hospital for further evaluation. Patient denies any cough or sputum production. Denies any chest pain palpitations lightheadedness or dizziness. Denies any abdominal discomfort or urinary symptoms. ER course: Per ER team patient on presentation was mildly drowsy; CT head showed no acute findings; CT chest showed multifocal pneumonia.? Given antibiotics.? Admitted to the hospital for further management.? Patient followed by IV, alert awake and was on sitting appropriately. I spoke to the patient's senior care, mentioned that patient does not have any healthcare proxy or guardian or Domo orders. Hospital course: ?Drowsiness/lethargy/metabolic encepohalopathy--d/t hypoglycemia, hypoxia and pneumonia--Resovled Hypoglycemia:lieky related to long acting insulin and poor nutrition. This has resolved and he has been back on Lantus with no furthe hypoglycemia Pneumonia: likely due to aspiration, initially he was on Vancomycin and Zosyn, then vancomycin was discontinued and he continued on Zosyn. At this point he is doing well, no hypoxia, no fever and will transition to Augmentin for 5 moredays. History of dysphagia and aspirations--Was seen by speech and recommeded to be on puree diet. Hyperkalemia: mild and resolved. DM: Has been restarted on Lantus 40 daily in the morning, and blood sugars have been high and getting additional insulin coverage so will resume Metformin. Time Spent with Patient Time attestation: Total time spent providing and/or coordinating discharge services: Discharge coordination time: Greater than 30 minutes Quality: Stroke Does the patient have a stroke diagnosis?: No Physical Exam Vital Signs: Vital Signs: Selected Entries 10/02/21 07:50 Temperature 97.7 F Pulse Rate 89 Respiratory Rate 17 Blood Pressure 112/74 Pulse Oximetry 95 Oxygen Delivery Me thod Room Air DS: Data Data Completed and Pending Completed studies during hospitalization [Text1]: Procedures Excision of Duodenum, Via Natural or Artificial Opening Endoscopic, Diagnostic (04/25/21) Excision of Stomach, Pylorus, Via Natural or Artificial Opening Endoscopic, Diagnostic (04/25/21) Inspection of Lower Intestinal Tract, Via Natural or Artificial Opening Endoscopic (04/25/21) Labs on day of discharge: Laboratory Results - last 24 hr 09/30/21 09/30/21 10/01/21 15:33 20:52 07:42 POC Glucose 214 H 134 H 168 H Preliminary micro results at discharge 09/28/21 11:33 Blood Culture - Preliminary Blood - Venous No growth after 48 hours. 09/28/21 11:17 Blood Culture - Preliminary Blood - Venous No growth after 48 hours. Discharge Plan Discharge Anticipated Discharge Date/Time: 10/02/21 09:25 Patient Disposition: Home, Self-Care Discharge Diagnosis: Aspiration pneumonia and hypoglycemia Referrals: Kelvin Wilson NP [Primary Care Provider] - 1 Week Discharge Medications: New amoxicillin-pot clavulanate [Augmentin] 875-125 mg tablet 1 tab PO BID Qty: 10 RF: 0 Continued clozapine 100 mg tablet 3 tab PO BEDTIME RF: 0 simvastatin 40 mg tablet 40 mg PO BEDTIME RF: 0 benztropine 1 mg tablet 1 tab PO BID RF: 0 budesonide 0.5 mg/2 mL suspension for nebulization 1 vial inhalation BID RF: 0 perphenazine 8 mg tablet 8 mg PO BEDTIME@2000 RF: 0 ipratropium-albuterol 0.5 mg-3 mg(2.5 mg base)/3 mL solution for nebulization 3 ml inhalation BID PRN (Reason: Wheezing) RF: 0 paroxetine HCl 40 mg tablet 40 mg PO DAILY RF: 0 perphenazine 16 mg tablet 16 mg PO BID@0800,2000 RF: 0 Lantus Solostar U-100 Insulin 100 unit/mL (3 mL) insulin pen 40 unit subcut DAILY RF: 0 Invega Sustenna 156 mg/mL syringe 156 mg IM Q28D RF: 0 albuterol sulfate [ProAir HFA] 90 mcg/actuation HFA aerosol inhaler 2 inh inhalation QID PRN (Reason: shortness of breath or wheezing) RF: 0 ferrous sulfate 324 mg (65 mg iron) tablet,delayed release (DR/EC) 324 mg PO BID RF: 0 pantoprazole [Protonix] 40 mg tablet,delayed release (DR/EC) 40 mg PO BID Qty: 60 RF: 0 magnesium oxide 400 mg (241.3 mg magnesium) Tablet 400 mg PO BIDPC Qty: 60 RF: 0 aspirin 81 mg tablet,delayed release (DR/EC) 1 tab PO DAILY RF: 0 ammonium lactate 12 % lotion 1 appl topical BID RF: 0 metformin 1,000 mg tablet 1,000 mg PO BIDWM RF: 0 triamcinolone acetonide 0.1 % cream 1 appl topical BID RF: 0 Discharge Orders: Discharge Order (Routine); Ordered 10/02/21 Ordered By: Khoi Driver Diet: diabetic diet and other Activity on Discharge: As tolerated Stand Alone Forms: Patient Portal Discharge page Care Plan Goals: Full recovery from aspiration pneumonia and hypoglycemia Health Concerns: Aspiration penumonia Plan of Treatment: Take Augementin as recommended---cursh tablet in apple sauce Take insulin and metformin as recommended and continue checking blood glucose per previous guideline Please note that only medication change was new medication of Augmentin, and to continue all other medications Assessment: As above
--- NOTE | 2021-10-01 11:26 | MHC.CM.PN ---
PATIENT IS MEDICALLY CLEARED FOR DC. CALL TO [phone] CONTACT [facility] IS NOT IN UNTIL SUNDAY AND STAFF MEMBER STATES THAT PATIENT CANNOT RETURN UNTIL SUNDAY BECAUSE OF REDUCED WEEKEND STAFFING THIS [employer] INFORMED CONTACT THAT AMBULANCE TRANSPORT CAN BE ARRANGED AND PLAN AGREED UPON. PREFERRED PHARMACY VERIFIED WHEN ASKED FOR NAME OF CONTACT, NONE GIVEN; HOWEVER, HE DOES ASK THAT THIS [employer] HOLD ANOTHER STAFF MEMBER WILL BE ON THE PHONE MOMENTARILY. PHONE HUNG UP CASE MANAGEMENT MADE SEVERAL ATTEMPTS TO CONTACT [facility] AT [phone] BUT LINE IS BUSY. PER CONVERSATION WITH HOSPITALIST, PLAN IS NOW TO ADJUST INSULIN AND DC TOMORROW. CALL TO [facility] AND SPOKE WITH PIETER. PIETER IS BRINGING [facility] MED LIST TO HOSPITAL TODAY. SHE STATES THAT THEY CANNOT ACCEPT PATIENT ON SUNDAYS., PIETER REMINDED THAT PATIENT IS LIKELY TO BE MEDICALLY CLEARED ON SUNDAY AND THERE WOULD BE NO MEDICAL REASON TO HOLD HIM HERE. CASE MANAGEMENT TO FOLLOW
--- NOTE | 2021-10-01 11:32 | HO.PM.IMPN ---
Subjective Subjective Date of Service: 10/01/21 Interval History: Seen in f/u for sepsis, aspriation pneumonia--no respiratory distresss. Blood sugar is hihger Review of Systems no fever no sob no dizziness Physical Exam Vital Signs: Vital Signs: Last Vital Signs Temp 96.8 F 10/01/21 08:00 Pulse 90 10/01/21 08:00 Resp 18 10/01/21 08:00 BP 121/82 10/01/21 08:00 Pulse Ox 97 10/01/21 08:00 Body Mass Index 25.7 Const: Other: General: AO X 3, no acute distress, comfortable Resp: bilateral rhonchi, breathing easy CVS: S1,S2,RRR GI: +BS, NT, no distention Skin: No rash Neuro: motor grossly intact Psych: flat affect Objective Data Active Medications Acetaminophen (Acetaminophen 325 Mg Tablet) 650 mg PO Q6H PRN PRN Reason: Pain, Mild (Pain Scale 1-3) Albuterol Sulfate (Albuterol Sulfate 90 Mcg 8 Gm Inhaler) 2 puff INHALE QID PRN PRN Reason: shortness of breath or wheezing Albuterol/Ipratropium (Albuterol/Iprat 2.5/0.5mg 3 Ml Ampul.Neb) 3 ml INHALE RQ4H PRN PRN Reason: Shortness of Breath/Wheezing Albuterol/Ipratropium (Albuterol/Iprat 2.5/0.5mg 3 Ml Ampul.Neb) 3 ml INHALE BID PRN PRN Reason: Wheezing Aspirin (Aspirin Enteric Coated 81 Mg Tablet.) 81 mg PO DAILY [facility] Last Admin: 10/01/21 08:37 Dose: 81 mg Documented by: ADARSH Atorvastatin Calcium (Atorvastatin Calcium 20 Mg Tablet) 20 mg PO BEDTIME [facility] Last Admin: 09/30/21 21:02 Dose: 20 mg Documented by: BELLE Benzonatate (Benzonatate 100 Mg Capsule) 100 mg PO TID PRN PRN Reason: Cough Benztropine Mesylate (Benztropine Mesylate 1 Mg Tablet) 1 mg PO BID [facility] Last Admin: 10/01/21 08:37 Dose: 1 mg Documented by: ADARSH Clozapine (Clozapine 100 Mg Tablet) 300 mg PO BEDTIME [facility] Last Admin: 09/30/21 21:02 Dose: 300 mg Documented by: BELLE Dextrose (Dextrose 50 % 25 Gm/50 Ml Vial) 25 gm IVPUSH Q15M PRN; Protocol PRN Reason: per Hypoglycemia Standing Ord. Ferrous Sulfate (Ferrous Sulfate 324 Mg Tablet.Dr) 324 mg PO BID [facility] Last Admin: 10/01/21 08:39 Dose: Not Given Documented by: ADARSH Non-Admin Reason: cannot be crushed Glucose (Glucose Gel 15 Gm Gel..Gram.) 15 gm PO Q15M PRN; Protocol PRN Reason: per Hypoglycemia Standing Ord. Glucose (Glucose Gel 15 Gm Gel..Gram.) 15 gm PO Q15M PRN; Protocol PRN Reason: per Hypoglycemia Standing Ord. Insulin Glargine (Insulin Glargine,Hum.Rec.Anlog 100 Unit/Ml 10 Ml Vial) 40 unit SUBCUT DAILY [facility] Last Admin: 10/01/21 08:38 Dose: 40 unit Documented by: ADARSH Insulin Human Lispro (Insulin Lispro 100 Unit/Ml 3 Ml Vial) 0 unit SUBCUT QIDACHS [facility]; Protocol Last Admin: 10/01/21 08:36 Dose: 2 unit Documented by: ADARSH Magnesium Oxide ([facility] 400 Mg Tablet) [facility] Last Admin: 10/01/21 08:37 Dose: 400 mg Documented by: ADARSH Melatonin (Melatonin 3 Mg Tablet) 6 mg PO BEDTIME PRN PRN Reason: Insomnia Last Admin: 09/29/21 19:55 Dose: 6 mg Documented by: NAY Nitroglycerin (Nitroglycerin 0.4 Mg Tab.Subl) 0.4 mg SUBLINGUAL Q5MX3 PRN PRN Reason: Chest Pain Paliperidone Palmitate (Paliperidone Palmitate 156 Mg/Ml Syringe) 156 mg IM Q28D [facility] Paroxetine HCl (Paroxetine Hcl 40 Mg Tablet) 40 mg PO DAILY [facility] Last Admin: 10/01/21 08:37 Dose: 40 mg Documented by: ADARSH Perphenazine (Perphenazine 8 Mg Tablet) 8 mg PO BEDTIME@1999 [facility] Last Admin: 09/30/21 21:02 Dose: 8 mg Documented by: BELLE Perphenazine (Perphenazine 8 Mg Tablet) 16 mg PO BID@799,1999 [facility] Last Admin: 10/01/21 08:37 Dose: 16 mg Documented by: ADARSH Pharmacy Consult (Consult Rx Perform Med Rec) 1 each MISCELLANE ONCE PRN PRN Reason: Consult order Pharmacy Consult (Consult Rx Vancomycin Dosing) 1 each MISCELLANE DAILY PRN PRN Reason: Consult order Senna (Sennosides 8.6 Mg Tablet) 17.2 mg PO BEDTIME PRN PRN Reason: Constipation Sodium Chloride (0.9 % Sodium Chloride Flush 3 Ml Syringe) 3 ml IVFLUSH QSHIFT [facility] Last Admin: 10/01/21 08:37 Dose: 3 ml Documented by: ADARSH Labs CBC & Chem 7: 09/30/21 05:22 09/30/21 08:58 Labs: Laboratory Results - last 24 hr 09/30/21 09/30/21 10/01/21 15:33 20:52 07:42 POC Glucose 214 H 134 H 168 H Microbiology Microbiology Results: Microbiology 09/28/21 11:33 Blood Culture - Preliminary Blood - Venous No growth after 48 hours. 09/28/21 11:17 Blood Culture - Preliminary Blood - Venous No growth after 48 hours. Assessment and Plan (1) Acute respiratory failure: Status: Acute (2) Sepsis: Status: Acute (3) Aspiration pneumonia: Status: Acute (4) Hypoxia: Status: Acute Assessment and Plan: 56-year-old male with a past medical history hypertension, hyperlipidemia, diabetes, COPD, alcohol syndrome, cognitive delay, lives in alf, schizoaffective disorder, paranoid , history of dysphagia/recurrent aspiration pneumonias presented to the hospital with f drowsiness/lethargy and found to have hypoglycemia and multifocal pneumonia. ?Drowsiness/lethargy/metabolic encepohalopathy--d/t hypoglycemia, hypoxia and pneumonia--Resovled Hypoglycemia:d/t Lantus, decrease PO intake. Pneumonia:?likely aspiration type, on Zosyn and Vanco, culture so far negative. DC Vancomycin and when medically reaady Augmentin for dishcarge History of dysphagia:? Patient failed Nursing swallow screen.? Speech and swallow recommend pureee diet Hyperkalemia: mild and resolved. DM: Hold all meds d/t hypoglycemia, Restart Metformin and Lower Lantus to 10 only --and monitor overnight before discharging For all other chronic conditions,home? Medications will be continued Anemia chronic, likely of chronic didease, monitor, DVT prophylaxis:? add levenox Code status:? Full code, to return to alf when medically ready Quality Stroke Does the patient have a stroke diagnosis?: No VTE Prior VTE?: No VTE Risk Level:: Medical - moderate - high VTE Device Contraindication: N/A - Device Ordered VTE Drug Contraindication: Treatment Not Indicated
[2021-10-01 11:49] LABS: Glucose, Whole Blood 258 mg/dL (60-115)
--- NOTE | 2021-10-01 13:24 | MHC.CM.PN ---
Addendum entered by Jolene Garza 10/01/21 14:38: PER CONVERSATION WITH PIETER, PLAN IS NOW FOR PATIENT TO RETURN TO HIS CARE HOME SETTING ON TUESDAY 10/09 AT 1300 [facility]IA [facility]. Original Note: [facility] IS NOW FOR PATIENT TO BE ABLE TO RETURN TO CARE HOME TODAY. CALL TO PIETER @ [phone] NO ANSWER MULTIPLE CALLS TO CARE HOME @ [phone] WITH NO ANSWER CALL GOES TO VOICEMAIL. CASE MANAGEMENT TO CONTINUE EFFORTS
[2021-10-01 16:46] LABS: Glucose, Whole Blood 59 mg/dL (60-115)
[2021-10-01 20:38] LABS: Glucose, Whole Blood 162 mg/dL (60-115)
--- NOTE | 2021-10-01 20:43 | PM.EVENT ---
Event Note Date of Service: 10/10/21 Event Note: Coffee ground emesis: 2 epsiodes; stat CBC; GI consult; PPI;
[2021-10-01 21:05] LABS: MANUAL DIFF FLAG NO
[2021-10-01 21:07] LABS: Basophils Percent Auto 0.6 % (0-2); Eosinophils Percent Auto 0.2 % (0-4); Hematocrit 40.2 % (42.0-52.0); Hemoglobin 12.2 g/dl (14.0-18.0); Imm Gran Abs Auto 0.01 X10*3/uL (0.00-0.03); Imm Gran Pct Auto 0.2 % (0.0-0.4); Lymphocytes Absolute Auto 1.2 X10*3/uL (1.2-4.9); Lymphocytes Percent Auto 23.3 % (20-40); Mean Corpuscular HGB Conc 30.3 g/dl (31.0-36.0); Mean Corpuscular Hemoglobin 22.3 pg (27.0-33.0); Mean Corpuscular Volume 73.5 fL (80.0-98.0); Mean Platelet Volume 9.7 fL (9.4-12.4); Monocytes Absolute Auto 0.6 X10*3/uL (0.1-1.2); Monocytes Percent Auto 11.2 % (2-11); Neutrophils Absolute Auto 3.3 x10*3/uL (2.0-8.3); Neutrophils Percent Auto 64.5 % (45-73); Platelet Count 292 X10*3/uL (160-400); Red Blood Count 5.47 X10*6/uL (4.60-5.80); Red Cell Distribution Width 21.1 % (11.0-16.0); White Blood Count 5.1 X10*3/uL (4.8-10.8)
--- NOTE | 2021-10-01 21:25 | P.CNID_ITS ---
History of Present Illness Data of Consult Service Date: 10/01/21 Requesting physician: Khoi Driver Primary Care Provider: Kelvin Wilson NP HPI Reason for consult: shortness of breath He presents to hospital with shortness of breath and fever. He lives in a prison and was reportedly prone to aspiration and eating pureed diet. He was at girlfriends house and reportedly may not have been eating pureed food. He has temperature of 103.8,pulse [address] scan of chest shows RLL pneumonia. He has MRSA negative in nares. Review of Systems Review of Systems: Yes Unobtainable due to mental condition Neurologic: Denies confusion Psychiatric: Psychiatric: Denies confusion PMFSH Past Medical History Medical History SANDIP (acute kidney injury) Aspiration pneumonia COPD (chronic obstructive pulmonary disease) Depression Diabetes Dysphagia Esophagitis with gastritis alcohol syndrome HTN (hypertension) Hyperkalemia Hyperkalemia Hyperlipidemia Internal hemorrhoids Internal hemorrhoids Iron deficiency anemia Iron deficiency anemia Obstructive sleep apnea Paranoia Schizo-affective schizophrenia Family History Family history: reviewed and not pertinent Surgical History Surgical History H/O endoscopy Social History Social History Household Members: Other Household Members Other:: prison Housing: Other Housing Other:: prison Do you presently have visiting nurse or other home services: No Unable to assess alcohol history related to: Unknown Alcohol intake: never Patient Tobacco Use Status: Current everyday Tobacco user Tobacco use type: Cigarette Cigarette Packs Per Day: 1 Cigarettes Per Day: 20.0 Smoked in Last 30 Days: Yes e-Cigarette/Vaping Use: Currently Using Patient Interested in Nicotine Replacement: No Patient Given Instructions on How to Stop Smoking: Yes Date Education Initiated: 09/29/21 Second Hand Smoke Exposure: No Use of substances other than those prescribed or required for medical reasons: No Substance Use Type: Crack/Cocaine Currently Displaying Signs/Symptoms of Drug Intoxication Withdrawal: No Have you been hit, kicked, punched, or otherwise hurt by someone within the past year? If so, by whom?: No Do you feel safe in your current relationship?: Yes Is there a partner from a previous relationship who is making you feel unsafe now?: No Are you made to feel afraid or neglected: No Advance Directives: No Advance Directives Information Provided: No Do you have thoughts of harming others: None Do you have a plan to hurt others: No Plan Recently lost weight without trying: No Eating poorly because of decreased appetite: No Nutrition Risks: Difficulty swallowing and On aspiration precautions service: No Current occupational status: disabled Meds Allergies Allergy/AdvReac Type Severity Reaction Status Date / Time prednisone Allergy Unknown Verified 06/17/21 08:59 Active Medications: Current Medications Acetaminophen (Acetaminophen 325 Mg Tablet) 650 mg PO Q6H PRN PRN Reason: Pain, Mild (Pain Scale 1-3) Albuterol Sulfate (Albuterol Sulfate 90 Mcg 8 Gm Inhaler) 2 puff INHALE QID PRN PRN Reason: shortness of breath or wheezing Albuterol/Ipratropium (Albuterol/Iprat 2.5/0.5mg 3 Ml Ampul.Neb) 3 ml INHALE RQ4H PRN PRN Reason: Shortness of Breath/Wheezing Albuterol/Ipratropium (Albuterol/Iprat 2.5/0.5mg 3 Ml Ampul.Neb) 3 ml INHALE BID PRN PRN Reason: Wheezing Aspirin (Aspirin Enteric Coated 81 Mg Tablet.) 81 mg PO DAILY [facility] Last Admin: 10/01/21 08:37 Dose: 81 mg Documented by: Atorvastatin Calcium (Atorvastatin Calcium 20 Mg Tablet) 20 mg PO BEDTIME [facility] Last Admin: 09/30/21 21:02 Dose: 20 mg Documented by: Benzonatate (Benzonatate 100 Mg Capsule) 100 mg PO TID PRN PRN Reason: Cough Benztropine Mesylate (Benztropine Mesylate 1 Mg Tablet) 1 mg PO BID [facility] Last Admin: 10/01/21 08:37 Dose: 1 mg Documented by: Clozapine (Clozapine 100 Mg Tablet) 300 mg PO BEDTIME [facility] Last Admin: 09/30/21 21:02 Dose: 300 mg Documented by: Dextrose (Dextrose 50 % 25 Gm/50 Ml Vial) 25 gm IVPUSH Q15M PRN; Protocol PRN Reason: per Hypoglycemia Standing Ord. Ferrous Sulfate (Ferrous Sulfate 324 Mg Tablet.) 324 mg PO BID [facility] Last Admin: 10/01/21 08:39 Dose: Not Given Documented by: Glucose (Glucose Gel 15 Gm Gel..Gram.) 15 gm PO Q15M PRN; Protocol PRN Reason: per Hypoglycemia Standing Ord. Glucose (Glucose Gel 15 Gm Gel..Gram.) 15 gm PO Q15M PRN; Protocol PRN Reason: per Hypoglycemia Standing Ord. Insulin Glargine (Insulin Glargine,Hum.Rec.Anlog 100 Unit/Ml 10 Ml Vial) 40 unit SUBCUT DAILY [facility] Last Admin: 10/01/21 08:38 Dose: 40 unit Documented by: Insulin Human Lispro (Insulin Lispro 100 Unit/Ml 3 Ml Vial) 0 unit SUBCUT QIDACHS [facility]; Protocol Last Admin: 10/01/21 17:11 Dose: Not Given Documented by: Magnesium Oxide (Magnesium Oxide 400 Mg Tablet) 400 mg PO BIDPC [facility] Last Admin: 10/01/21 19:38 Dose: 400 mg Documented by: Melatonin (Melatonin 3 Mg Tablet) 6 mg PO BEDTIME PRN PRN Reason: Insomnia Last Admin: 09/29/21 19:55 Dose: 6 mg Documented by: Nitroglycerin (Nitroglycerin 0.4 Mg Tab.Subl) 0.4 mg SUBLINGUAL Q5MX3 PRN PRN Reason: Chest Pain Paliperidone Palmitate (Paliperidone Palmitate 156 Mg/Ml Syringe) 156 mg IM Q28D [facility] Pantoprazole Sodium (Pantoprazole Sodium 40 Mg/10 Ml Vial) 40 mg IVPUSH BID@0630,1630 [facility] Paroxetine HCl (Paroxetine Hcl 40 Mg Tablet) 40 mg PO DAILY [facility] Last Admin: 10/01/21 08:37 Dose: 40 mg Documented by: Perphenazine (Perphenazine 8 Mg Tablet) 8 mg PO BEDTIME@1999 [facility] Last Admin: 09/30/21 21:02 Dose: 8 mg Documented by: Perphenazine (Perphenazine 8 Mg Tablet) 16 mg PO BID@0800,1999 [facility] Last Admin: 10/01/21 08:37 Dose: 16 mg Documented by: Pharmacy Consult (Consult Rx Perform Med Rec) 1 each MISCELLANE ONCE PRN PRN Reason: Consult order Pharmacy Consult (Consult Rx Vancomycin Dosing) 1 each MISCELLANE DAILY PRN PRN Reason: Consult order Senna (Sennosides 8.6 Mg Tablet) 17.2 mg PO BEDTIME PRN PRN Reason: Constipation Sodium Chloride (0.9 % Sodium Chloride Flush 3 Ml Syringe) [facility] Last Admin: 10/01/21 17:10 Dose: 3 ml Documented by: Home Medications Medication Instructions Recorded Confirmed Last Taken Type benztropine 1 mg tablet 1 tab PO BID 10/07/20 09/28/21 09/28/21 History budesonide 0.5 mg/2 mL suspension 1 vial INHALATION BID 10/07/20 09/28/21 09/28/21 History for nebulization clozapine 100 mg tablet 3 tab PO BEDTIME 10/07/20 09/28/21 09/27/21 History perphenazine 8 mg tablet 8 mg PO BEDTIME@199910/07/20 09/28/21 09/27/21 History simvastatin 40 mg tablet 40 mg PO BEDTIME 10/07/20 09/28/21 09/27/21 History albuterol sulfate 90 mcg/actuation 2 inh INHALATION QID PRN 04/25/21 09/28/21 09/28/21 History aerosol inhaler (ProAir HFA) ferrous sulfate 324 mg (65 mg 324 mg PO BID 04/25/21 09/28/21 09/28/21 History iron) tablet,delayed release insulin glargine 100 unit/mL (3 40 unit SUBCUT DAILY 04/25/21 09/28/21 09/28/21 History mL) subcutaneous pen (Lantus Solostar U-100 Insulin) ipratropium 0.5 mg-albuterol 3 mg 3 ml INHALATION BID PRN 04/25/21 09/28/21 09/28/21 History (2.5 mg base)/3 mL nebulization soln paliperidone palmitate 156 mg/mL 156 mg IM Q28D 04/25/21 09/28/21 09/15/21 History intramuscular syringe (Invega Sustenna) paroxetine HCl 40 mg tablet 40 mg PO DAILY 04/25/21 09/28/21 09/28/21 History perphenazine 16 mg tablet 16 mg PO BID@0800,199904/25/21 09/28/21 09/28/21 History metformin 1,000 mg tablet 1,000 mg PO BIDWM 06/17/21 09/28/21 09/28/21 History triamcinolone acetonide 0.1 % 1 appl TOPICAL BID 06/17/21 09/28/21 09/28/21 History topical cream ammonium lactate 12 % lotion 1 appl TOPICAL BID 09/28/21 09/28/21 09/28/21 History aspirin 81 mg tablet,delayed 1 tab PO DAILY 09/28/21 09/28/21 09/28/21 History release Physical Exam Vital Signs: Vital Signs: Last Vital Signs Temp 97.7 F 10/01/21 19:30 Pulse 99 10/01/21 19:30 Resp 17 10/01/21 19:30 BP 135/86 10/01/21 19:30 Pulse Ox 96 10/01/21 19:30 Body Mass Index 25.7 Const: General: cooperative; No confusion Orientation/consciousness: No confusion Eyes: General: appearance normal, both eyes and all related structures Resp: Effort & Inspection: normal respiratory effort Cardio: Rate: regular rate Rhythm: regular rhythm GI: Palpation (GI): Soft to palpation and not firm Skin: General skin exam: no rashes or lesions noted Neuro: General: No confusion Results Labs CBC & Chem 7: 10/01/21 21:01 09/30/21 08:58 Labs: Short CBC 10/01/21 Range/Units 21:01 WBC 5.1 (4.8-10.8) X10*3/uL Hgb 12.2 L (14.0-18.0) g/dl Hct 40.2 L (42.0-52.0) % Plt Count 292 (160-400) X10*3/uL Microbiology Microbiology Results: Microbiology 09/28/21 11:33 Blood - Venous Blood Culture - Preliminary No growth after 48 hours. 09/28/21 11:17 Blood - Venous Blood Culture - Preliminary No growth after 48 hours. Assessment and Plan (1) Acute respiratory failure: Status: Acute He has aspiration pneumonia Most likely causes are anerobes,gram negatives He has risk with food (2) Sepsis: Status: Acute Would continue Piperacillin/Tazobactam until discharge and then five days po Augmentin Minimize aspiration.
[2021-10-01] MEDS: Ferrous Sulfate 324 MG TABLET.DR PO (21:58)
[2021-10-01] MEDS: Atorvastatin Calcium 20 MG TABLET PO (21:59)
[2021-10-01] MEDS: cloZAPine 100 MG TABLET 300 MG PO (21:59)
[2021-10-01] MEDS: Perphenazine 8 MG TABLET PO (22:07)
[2021-10-02] VITALS: BP 119/77; PULSE 104; RESP 17; TEMP 36.4; O2SAT 94
[2021-10-02] MEDS: Melatonin 3 MG TABLET 6 MG PO (00:01)
[2021-10-02 04:00] VITALS: BP 138/86; PULSE 86; RESP 17; TEMP 36.2; O2SAT 95
[2021-10-02 05:36] LABS: Glucose, Whole Blood 97 mg/dL (60-115)
[2021-10-02] MEDS: Pantoprazole Sodium 40 MG/10 ML VIAL IVPUSH (06:26)
--- NOTE | 2021-10-02 06:28 | PC.NURSE ---
No further nausea or vomiting overnight [id number] shift. NPO except small amount ice chips only. Expresses that he would like to go home today
[2021-10-02 07:50] VITALS: BP 112/74; PULSE 89; RESP 17; TEMP 36.5; O2SAT 95
[2021-10-02] MEDS: 0.9 % Sodium Chloride Flush 3 ML SYRINGE IVFLUSH (07:55)
[2021-10-02 08:07] LABS: Glucose, Whole Blood 103 mg/dL (60-115)
--- NOTE | 2021-10-02 10:15 | MHC.CM.PN ---
[place]SF[place] [id number] FROM [facility]. [facility].
[2021-10-02] MEDS: Aspirin Enteric Coated 81 MG TABLET.DR PO (10:16)
[2021-10-02] MEDS: Perphenazine 8 MG TABLET 16 MG PO (10:16)
[2021-10-02] MEDS: Benztropine Mesylate 1 MG TABLET PO (10:16)
[2021-10-02] MEDS: PARoxetine HCL 40 MG TABLET PO (10:16)
[2021-10-02] MEDS: Magnesium Oxide 400 MG TABLET PO (10:16)
[2021-10-02] MEDS: Ferrous Sulfate 324 MG TABLET.DR PO (10:17)
[2021-10-02] MEDS: Insulin Glargine,Hum.rec.anlog 100 UNIT/ML 10 ML VIAL 40 UNIT SUBCUT (10:17)
[2021-10-02] MEDS: Amoxicillin/Potassium Clav 875 MG TABLET PO (10:17)
[2021-10-02 11:14] LABS: Glucose, Whole Blood 127 mg/dL (60-115)
[2021-10-02 11:50] VITALS: BP 120/75; PULSE 98; RESP 18; TEMP 36.2; O2SAT 95
[2021-10-03 10:33] LABS: Glucose, Whole Blood 166 mg/dL (60-115)
[2021-10-12 15:35] LABS: Chlorpropamide None Detected; Glimepiride None Detected; Glipizide None Detected; Glyburide None Detected; Nateglinide None Detected; Pioglitazone None Detected; Repaglinide None Detected; Rosiglitazone None Detected; Tolazamide None Detected; Tolbutamide None Detected
== END 2021-10-02 14:21 | disposition home or self-care (01) | DRG 871 ==
LOC: HO.ED 18:10 → HO.EDOVER 21:27 → HO.S3 09-29 11:31
PROVIDERS: Emergency Medicine Emergency Medical Services; Admitting Provider Hospitalist; Emergency Provider Internal Medicine; PCP Nurse Practitioner Family; Visit Provider Internal Medicine
DX: A41.9 Sepsis, unspecified organism (principal); J69.0 Pneumonitis due to inhalation of food and vomit; J96.01 Acute respiratory failure with hypoxia; Q86.0 Fetal alcohol syndrome (dysmorphic); E87.5 Hyperkalemia; E11.649 Type 2 diabetes mellitus with hypoglycemia without coma; R13.10 Dysphagia, unspecified; F17.210 Nicotine dependence, cigarettes, uncomplicated; D63.8 Anemia in other chronic diseases classified elsewhere; F25.9 Schizoaffective disorder, unspecified; Z20.822 Contact with and (suspected) exposure to COVID-19; Z71.6 Tobacco abuse counseling; Z79.4 Long term (current) use of insulin; Z79.82 Long term (current) use of aspirin; Z79.899 Other long term (current) drug therapy
CPT/HCPCS: 0241U; 36415; 70450; 71045; 71275; 74177; 80048; 80053; 80202; 80307; 80337; 81001; 82565; 82803; 82947; 83605; 84484; 85025; 85027; 87040; 87635; 92610; 93005; 94660; 96361; 96365; 96375; 99285; 99291; J2543; J3370; Q9967

== ENCOUNTER 2021-11-07 21:14 | Emergency (ER) | payer OTHER, SELFPAY ==
--- NOTE | ~2021-11-07 | XR_ITS ---
EXAMINATION: XR CHEST CLINICAL INFORMATION: Recurrent aspiration pneumonia COMPARISON: Chest x-ray 09/28/2021.. CT chest 09/28/2021 TECHNIQUE: Frontal view of the chest was obtained. 2151 hours FINDINGS: There has been significant improvement in the patchy parenchymal airspace opacities in the right lung since prior study 09/28/2021. There may be subtle residual airspace opacity remaining at the right lung base. There is linear atelectasis at the left lung base. No pleural effusion pneumothorax. The heart size is normal. Cardiac mediastinal contours are normal. 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 Old healed fracture of lower right ribs. XR/XR chest 1V IMPRESSION: Significant improvement in the airspace opacities in right lung since prior study 09/28/2021. Possible subtle residual airspace opacity remaining at right lung base.
[2021-11-07 21:24] VITALS: BP 146/80; PULSE 111; O2SAT 97
[2021-11-07 21:44] VITALS: BP 136/88; PULSE 103; RESP 15; TEMP 36.9; O2SAT 97; BMI 26.7
--- NOTE | 2021-11-07 21:54 | ED.SOB ---
HPI - SOB/Dyspnea General Chief Complaint: Dyspnea Stated Complaint: pna Time Seen by Provider: 11/07/21 21:39 Source: patient and EMS Mode of arrival: EMS Limitations: no limitations History of Present Illness HPI Narrative: Patient comes to the emergency room from a detention. The staff reported shortness of breath. When patient arrived here, patient states he has no shortness of breath, complaining of dizziness. Patient has history of alcohol syndrome, patient is poor historian. Of note, patient was discharged from the hospital approximately a month ago for sepsis, respiratory failure secondary to pneumonia. Related Data Home Medications Medication Instructions Recorded Confirmed benztropine 1 mg tablet 1 tab PO BID 10/07/20 09/28/21 budesonide 0.5 mg/2 mL suspension 1 vial INHALATION BID 10/07/20 09/28/21 for nebulization clozapine 100 mg tablet 3 tab PO BEDTIME 10/07/20 09/28/21 perphenazine 8 mg tablet 8 mg PO BEDTIME@199910/07/20 09/28/21 simvastatin 40 mg tablet 40 mg PO BEDTIME 10/07/20 09/28/21 albuterol sulfate 90 mcg/actuation 2 inh INHALATION QID PRN 04/25/21 09/28/21 aerosol inhaler (ProAir HFA) ferrous sulfate 324 mg (65 mg 324 mg PO BID 04/25/21 09/28/21 iron) tablet,delayed release insulin glargine 100 unit/mL (3 40 unit SUBCUT DAILY 04/25/21 09/28/21 mL) subcutaneous pen (Lantus Solostar U-100 Insulin) ipratropium 0.5 mg-albuterol 3 mg 3 ml INHALATION BID PRN 04/25/21 09/28/21 (2.5 mg base)/3 mL nebulization soln paliperidone palmitate 156 mg/mL 156 mg IM Q28D 04/25/21 09/28/21 intramuscular syringe (Invega Sustenna) paroxetine HCl 40 mg tablet 40 mg PO DAILY 04/25/21 09/28/21 perphenazine 16 mg tablet 16 mg PO BID@0800,199904/25/21 09/28/21 metformin 1,000 mg tablet 1,000 mg PO BIDWM 06/17/21 09/28/21 triamcinolone acetonide 0.1 % 1 appl TOPICAL BID 06/17/21 09/28/21 topical cream ammonium lactate 12 % lotion 1 appl TOPICAL BID 09/28/21 09/28/21 aspirin 81 mg tablet,delayed 1 tab PO DAILY 09/28/21 09/28/21 release Previous Rx's Medication Instructions Recorded pantoprazole 40 mg tablet,delayed 40 mg PO BID #60 tab 04/28/21 release (Protonix) magnesium oxide 400 mg (241.3 mg 400 mg PO BIDPC #60 tab 05/05/21 magnesium) tablet amoxicillin 875 mg-potassium 1 tab PO BID #10 tab 10/01/21 clavulanate 125 mg tablet (Augmentin) Allergies Allergy/AdvReac Type Severity Reaction Status Date / Time prednisone Allergy Unknown Verified 06/17/21 08:59 Review of Systems Review of Systems: Constitutional : No Weight loss, No Fever, No Chills, No Night Sweats, No Fatigue, No Malaise ENT/Mouth : No Hearing loss, No Ear Pain, No Nasal Congestion, No Sinus Pain, No Hoarseness, No sore throat, No Rhinorrhea, No Swallowing Difficulty Eyes: No Eye Pain, No Swelling, No Redness, No Foreign Body, No Discharge, No Vision Changes Cardiovascular : No Chest Pain, no edema or palpitations Respiratory : No Cough, No Sputum, No Wheezing, No Smoke Exposure, No Dyspnea Gastrointestinal : No Nausea, No Vomiting, No Diarrhea, No Constipation, No abdominal Pain, No Hematochezia, No Melena Genitourinary : no irregular bleeding, No Dysuria, No Urinary Frequency, No Hematuria, No Urinary Incontinence, No Urgency, No Flank Pain, No Urinary Flow Changes, No Hesitancy Musculoskeletal : No joint pain, No Myalgias, No Joint Swelling Skin : No Skin Lesions, No rash Neuro : No Weakness, No Numbness, No Paresthesias, No Loss of Consciousness, states that he feels dizzy when he stands up, No Headache Psych : No Anxiety/Panic, No Depression, No SI/HI/AH/VH, No Social Issues, Heme/Lymph: No Bruising, No Bleeding,No Lymphadenopathy Endocrine : No Polyuria, No Polydipsia, No Temperature Intolerance PMFSH Past Medical History Medical History SANDIP (acute kidney injury) Aspiration pneumonia COPD (chronic obstructive pulmonary disease) Depression Diabetes Dysphagia Esophagitis with gastritis alcohol syndrome HTN (hypertension) Hyperkalemia Hyperkalemia Hyperlipidemia Internal hemorrhoids Internal hemorrhoids Iron deficiency anemia Iron deficiency anemia Obstructive sleep apnea Paranoia Schizo-affective schizophrenia Surgical History H/O endoscopy Social History Social History Household Members: Other Household Members Other:: detention Housing: Other Housing Other:: detention Do you presently have visiting nurse or other home services: No Unable to assess alcohol history related to: Unknown Alcohol intake: never Patient Tobacco Use Status: Current everyday Tobacco user Tobacco use type: Cigarette Cigarette Packs Per Day: 1 Cigarettes Per Day: 20.0 e-Cigarette/Vaping Use: Currently Using Second Hand Smoke Exposure: No Use of substances other than those prescribed or required for medical reasons: No Substance Use Type: Crack/Cocaine Advance Directives: No Advance Directives Information Provided: No service: No Current occupational status: disabled Physical Exam Vital Signs: Vital Signs: Last Vital Signs Temp 98.2 F 11/07/21 23:39 Pulse 99 11/08/21 00:00 Resp 17 11/08/21 00:00 BP 140/86 H 11/08/21 00:00 Pulse Ox 98 11/08/21 00:00 Oxygen Flow Rate 2 11/07/21 21:44 BMI result Body Mass Index 26.7 Const: Other: Appearance: Alert. Oriented X3. No acute distress. Well-appearing Eyes: Pupils equal, round and reactive to light. ENT: Pharynx normal. Neck: Normal inspection. Neck supple. No lymph nodes noted. No crepitus CVS: Normal heart rate and rhythm. Pulses normal. Normal S1 and S2 Respiratory: No respiratory distress. Breath sounds normal. No Wheezing. No rales Abdomen: Soft and nontender. No rigidity. No distention. Skin: Skin warm and dry. Normal skin color. Normal skin turgor. Extremities: No lower extremity edema. No Lacerations. No Rash Neuro: Oriented X 3. No motor deficit. No sensory deficit. Moving all extermities. No slurred speech. Course Course Course Narrative: Patient is asymptomatic, patient does not have any dizziness, dimer negative, orthostatics vital signs negative. Patient is saturating 95% on room air. Patient's chest x-ray shows significant improvement in airspace opacities since the prior study. MDM - SOB/Dyspnea Lab Data Result diagrams: 11/07/21 22:12 11/07/21 22:12 Labs: Lab Results 11/07/21 11/07/21 11/07/21 Range/Units 22:12 22:12 22:12 WBC 4.8 (4.8-10.8) X10*3/uL RBC 4.90 (4.60-5.80) X10*6/uL Hgb 11.7 L (14.0-18.0) g/dl Hct 38.8 L (42.0-52.0) % MCV 79.2 L (80.0-98.0) fL MCH 23.9 L (27.0-33.0) pg MCHC 30.2 L (31.0-36.0) g/dl RDW 19.5 H (11.0-16.0) % Plt Count 258 (160-400) X10*3/uL MPV 10.3 (9.4-12.4) fL Immature Gran % (Auto) 0.4 (0.0-0.4) % Neut % (Auto) 64.9 (45-73) % Lymph % (Auto) 22.4 (20-40) % Reeves % (Auto) 11.1 H (2-11) % Eos % (Auto) 0.4 (0-4) % Baso % (Auto) 0.8 (0-2) % Lymph # (Auto) 1.1 L (1.2-4.9) X10*3/uL Reeves # (Auto) 0.5 (0.1-1.2) X10*3/uL Eos # (Auto) 0.0 (0.0-0.4) X10*3/uL Baso # (Auto) 0.0 (0.0-0.2) X10*3/uL Abs Immat Gran (auto) 0.02 (0.00-0.03) X10*3/uL Absolute Neuts (auto) 3.1 (2.0-8.3) x10*3/uL Absolute Nucleated RBC 0.000 (0.0-0.012) X10*3/uL Nucleated RBC % (auto) 0.0 (0.0-0.2) /100WBC D-Dimer High Sensitivty NG/ML Sodium 139 (135-145) mmol/L Potassium 4.9 D (3.3-5.1) mmol/L Chloride 103 (96-108) mmol/L Carbon Dioxide 27 (22-29) mmol/L Anion Gap 14 (12-20) BUN 25 H (9-16) mg/dL Creatinine 1.07 (0.5-1.4) mg/dL Estim Creat Clear Calc 66.0 Estimated GFR > 60 Random Glucose 127 H (60-115) mg/dL Lactic Acid (0.5-2.0) mmol/L Calcium 9.1 D (8.4-10.2) mg/dL B-Natriuretic Peptide 10 (<100) pg/mL COVID-19 ([facility]) (Negative) COVID-19 Clin Com 11/07/21 11/07/21 11/08/21 Range/Units 22:12 22:13 00:46 WBC (4.8-10.8) X10*3/uL RBC (4.60-5.80) X10*6/uL Hgb (14.0-18.0) g/dl Hct (42.0-52.0) % MCV (80.0-98.0) fL MCH (27.0-33.0) pg MCHC (31.0-36.0) g/dl RDW (11.0-16.0) % Plt Count (160-400) X10*3/uL MPV (9.4-12.4) fL Immature Gran % (Auto) (0.0-0.4) % Neut % (Auto) (45-73) % Lymph % (Auto) (20-40) % Reeves % (Auto) (2-11) % Eos % (Auto) (0-4) % Baso % (Auto) (0-2) % Lymph # (Auto) (1.2-4.9) X10*3/uL Reeves # (Auto) (0.1-1.2) X10*3/uL Eos # (Auto) (0.0-0.4) X10*3/uL Baso # (Auto) (0.0-0.2) X10*3/uL Abs Immat Gran (auto) (0.00-0.03) X10*3/uL Absolute Neuts (auto) (2.0-8.3) x10*3/uL Absolute Nucleated RBC (0.0-0.012) X10*3/uL Nucleated RBC % (auto) (0.0-0.2) /100WBC D-Dimer High Sensitivty < 150 NG/ML Sodium (135-145) mmol/L Potassium (3.3-5.1) mmol/L Chloride (96-108) mmol/L Carbon Dioxide (22-29) mmol/L Anion Gap (12-20) BUN (9-16) mg/dL Creatinine (0.5-1.4) mg/dL Estim Creat Clear Calc Estimated GFR Random Glucose (60-115) mg/dL Lactic Acid 2.0 (0.5-2.0) mmol/L Calcium (8.4-10.2) mg/dL B-Natriuretic Peptide (<100) pg/mL COVID-19 ([facility]) Negative (Negative) COVID-19 Clin Com See Note Discharge Plan Discharge Clinical Impression: Acute dyspnea Patient Disposition: Home, Self-Care Instructions: Dyspnea (ED) Additional Instructions: Please follow-up with your primary care physician tomorrow. If you have any worsening or new symptoms, please return to the emergency room or call 911 Prescriptions: No Action clozapine 100 mg tablet 3 tab PO BEDTIME RF: 0 simvastatin 40 mg tablet 40 mg PO BEDTIME RF: 0 benztropine 1 mg tablet 1 tab PO BID RF: 0 budesonide 0.5 mg/2 mL suspension for nebulization 1 vial inhalation BID RF: 0 perphenazine 8 mg tablet 8 mg PO BEDTIME@1999 RF: 0 ipratropium-albuterol 0.5 mg-3 mg(2.5 mg base)/3 mL solution for nebulization 3 ml inhalation BID PRN (Reason: Wheezing) RF: 0 paroxetine HCl 40 mg tablet 40 mg PO DAILY RF: 0 perphenazine 16 mg tablet 16 mg PO BID@0800,1999 RF: 0 Lantus Solostar U-100 Insulin 100 unit/mL (3 mL) insulin pen 40 unit subcut DAILY RF: 0 Invega Sustenna 156 mg/mL syringe 156 mg IM Q28D RF: 0 albuterol sulfate [ProAir HFA] 90 mcg/actuation HFA aerosol inhaler 2 inh inhalation QID PRN (Reason: shortness of breath or wheezing) RF: 0 ferrous sulfate 324 mg (65 mg iron) tablet,delayed release (DR/EC) 324 mg PO BID RF: 0 pantoprazole [Protonix] 40 mg tablet,delayed release (DR/EC) 40 mg PO BID Qty: 60 RF: 0 magnesium oxide 400 mg (241.3 mg magnesium) Tablet 400 mg PO BIDPC Qty: 60 RF: 0 aspirin 81 mg tablet,delayed release (DR/EC) 1 tab PO DAILY RF: 0 ammonium lactate 12 % lotion 1 appl topical BID RF: 0 amoxicillin-pot clavulanate [Augmentin] 875-125 mg tablet 1 tab PO BID Qty: 10 RF: 0 metformin 1,000 mg tablet 1,000 mg PO BIDWM RF: 0 triamcinolone acetonide 0.1 % cream 1 appl topical BID RF: 0
[2021-11-07 21:56] VITALS: BP 126/75; PULSE 103
[2021-11-07 21:57] VITALS: BP 126/79; PULSE 104
[2021-11-07 21:58] VITALS: BP 115/76; PULSE 109
[2021-11-07] MEDS: 0.9 % Sodium Chloride 1,000 ML 999 ML IVCONT (22:00)
[2021-11-07 22:18] LABS: MANUAL DIFF FLAG NO
[2021-11-07 22:21] LABS: Basophils Percent Auto 0.8 % (0-2); Eosinophils Percent Auto 0.4 % (0-4); Hematocrit 38.8 % (42.0-52.0); Hemoglobin 11.7 g/dl (14.0-18.0); Imm Gran Abs Auto 0.02 X10*3/uL (0.00-0.03); Imm Gran Pct Auto 0.4 % (0.0-0.4); Lymphocytes Absolute Auto 1.1 X10*3/uL (1.2-4.9); Lymphocytes Percent Auto 22.4 % (20-40); Mean Corpuscular HGB Conc 30.2 g/dl (31.0-36.0); Mean Corpuscular Hemoglobin 23.9 pg (27.0-33.0); Mean Corpuscular Volume 79.2 fL (80.0-98.0); Mean Platelet Volume 10.3 fL (9.4-12.4); Monocytes Absolute Auto 0.5 X10*3/uL (0.1-1.2); Monocytes Percent Auto 11.1 % (2-11); Neutrophils Absolute Auto 3.1 x10*3/uL (2.0-8.3); Neutrophils Percent Auto 64.9 % (45-73); Platelet Count 258 X10*3/uL (160-400); Red Cell Distribution Width 19.5 % (11.0-16.0); White Blood Count 4.8 X10*3/uL (4.8-10.8)
[2021-11-07 22:36] LABS: Anion Gap 14 (12-20); Blood Urea Nitrogen 25 mg/dL (9-16); Calcium 9.1 mg/dL (8.4-10.2); Carbon Dioxide 27 mmol/L (22-29); Chloride 103 mmol/L (96-108); Estimated Glomerular Filt Rate > 60; Glucose Random 127 mg/dL (60-115); Potassium 4.9 mmol/L (3.3-5.1); Sodium 139 mmol/L (135-145)
[2021-11-07 22:41] LABS: B Type Natriuretic Peptide 10 pg/mL (<100); COVID-19 Test Negative (Negative); IDNOW Serial# 08D9AD1C
[2021-11-07 23:39] VITALS: BP 142/92; PULSE 101; RESP 16; TEMP 36.8; O2SAT 97
[2021-11-08] VITALS: BP 140/86; PULSE 99; RESP 17; O2SAT 94
[2021-11-08 01:02] LABS: D Dimer High Sensitivity < 150 NG/ML
== END 2021-11-08 02:51 | disposition home or self-care (01) ==
PROVIDERS: Emergency Provider Emergency Medicine
DX: R06.02 Shortness of breath (principal); Z20.822 Contact with and (suspected) exposure to COVID-19; E11.9 Type 2 diabetes mellitus without complications; I10 Essential (primary) hypertension; F17.200 Nicotine dependence, unspecified, uncomplicated; Z79.4 Long term (current) use of insulin
CPT/HCPCS: 36415; 71045; 80048; 83605; 83880; 85025; 85379; 87040; 87635; 96360; 99284; 99285

== ENCOUNTER 2021-12-09 10:32 | Emergency (ER) | payer OTHER, SELFPAY ==
--- NOTE | ~2021-12-09 | XR_ITS ---
EXAMINATION: XR CHEST CLINICAL INFORMATION: Dizziness. Cough and shortness of breath. Rule out pneumonia. COMPARISON: Previous chest x-rays most recent 11/07/[address] September 2021 TECHNIQUE: Frontal view of the chest was obtained. FINDINGS: The cardiac and mediastinal contours are stable. There is atelectasis or small infiltrates at both lung bases. This is not appreciably changed from most recent chest x-ray October 2021. There is no pleural effusion or pneumothorax. There is an old left clavicle fracture. XR/XR chest 1V IMPRESSION: Atelectasis or small infiltrates at the lung bases similar to October 2021 exam.
[2021-12-09 10:38] VITALS: BP 136/96; PULSE 113; O2SAT 96
[2021-12-09 10:39] VITALS: BP 139/78; PULSE 117; RESP 19; TEMP 37.2; O2SAT 94; BMI 26.6
[2021-12-09 11:33] VITALS: BP 127/74; PULSE 110; RESP 20; O2SAT 97
--- NOTE | 2021-12-09 11:39 | ED_ITS ---
HPI - Dizziness General Chief Complaint: Dizziness Stated Complaint: FEVER,DIZZINESS,+COVID Time Seen by Provider: 12/09/21 10:55 Source: patient Mode of arrival: EMS Limitations: altered mental status History of Present Illness HPI Narrative: 56-year-old male with history of alcohol syndrome/developmental delay who was [facility] the [facility] for evaluation dizziness fever and possible aspiration pneumonia. In the triage note it states that the patient is COVID positive there is no record in our system a COVID positive test her when he turned positive. The patient was able to answer some questions. He states he is feeling dizzy but cannot describe in further detail. He has had a cough and fever. He denied chest pain, nausea or vomiting. He denied myalgias, arthralgias, diarrhea. The patient is on a pureed diet and apparently is prone to aspiration pneumonias. Related Data Home Medications Medication Instructions Recorded Confirmed benztropine 1 mg tablet 1 tab PO BID 10/07/20 09/28/21 budesonide 0.5 mg/2 mL suspension 1 vial INHALATION BID 10/07/20 09/28/21 for nebulization clozapine 100 mg tablet 3 tab PO BEDTIME 10/07/20 09/28/21 perphenazine 8 mg tablet 8 mg PO BEDTIME@199910/07/20 09/28/21 simvastatin 40 mg tablet 40 mg PO BEDTIME 10/07/20 09/28/21 albuterol sulfate 90 mcg/actuation 2 inh INHALATION QID PRN 04/25/21 09/28/21 aerosol inhaler (ProAir HFA) ferrous sulfate 324 mg (65 mg 324 mg PO BID 04/25/21 09/28/21 iron) tablet,delayed release insulin glargine 100 unit/mL (3 40 unit SUBCUT DAILY 04/25/21 09/28/21 mL) subcutaneous pen (Lantus Solostar U-100 Insulin) ipratropium 0.5 mg-albuterol 3 mg 3 ml INHALATION BID PRN 04/25/21 09/28/21 (2.5 mg base)/3 mL nebulization soln paliperidone palmitate 156 mg/mL 156 mg IM Q28D 04/25/21 09/28/21 intramuscular syringe (Invega Sustenna) paroxetine HCl 40 mg tablet 40 mg PO DAILY 04/25/21 09/28/21 perphenazine 16 mg tablet 16 mg PO BID@0800,2000 04/25/21 09/28/21 metformin 1,000 mg tablet 1,000 mg PO BIDWM 06/17/21 09/28/21 triamcinolone acetonide 0.1 % 1 appl TOPICAL BID 06/17/21 09/28/21 topical cream ammonium lactate 12 % lotion 1 appl TOPICAL BID 09/28/21 09/28/21 aspirin 81 mg tablet,delayed 1 tab PO DAILY 09/28/21 09/28/21 release Previous Rx's Medication Instructions Recorded pantoprazole 40 mg tablet,delayed 40 mg PO BID #60 tab 04/28/21 release (Protonix) magnesium oxide 400 mg (241.3 mg 400 mg PO BIDPC #60 tab 05/05/21 magnesium) tablet amoxicillin 875 mg-potassium 1 tab PO BID #10 tab 10/01/21 clavulanate 125 mg tablet (Augmentin) Allergies Allergy/AdvReac Type Severity Reaction Status Date / Time prednisone Allergy Unknown Verified 06/17/21 08:59 Review of Systems Review of Systems: Yes all other systems are reviewed and are negative PMFSH Past Medical History Medical History SANDIP (acute kidney injury) Aspiration pneumonia COPD (chronic obstructive pulmonary disease) Depression Diabetes Dysphagia Esophagitis with gastritis alcohol syndrome HTN (hypertension) Hyperkalemia Hyperkalemia Hyperlipidemia Internal hemorrhoids Internal hemorrhoids Iron deficiency anemia Iron deficiency anemia Obstructive sleep apnea Paranoia Schizo-affective schizophrenia Surgical History H/O endoscopy Social History Social History Household Members: Other Household Members Other:: penitentiary Housing: Other Housing Other:: pen[facility]entiary Do you presently have visiting nurse or other home services: No Unable to assess alcohol history related to: Unknown Alcohol intake: never Patient Tobacco Use Status: Former Tobacco user Tobacco use type: Cigarette Cigarette Packs Per Day: 1 Cigarettes Per Day: 20.0 e-Cigarette/Vaping Use: Currently Using Second Hand Smoke Exposure: No Use of substances other than those prescribed or required for medical reasons: No Substance Use Type: Crack/Cocaine Advance Directives: No Advance Directives Information Provided: Yes service: No Current occupational status: disabled Physical Exam Vital Signs: Vital Signs: Last Vital Signs Temp 99 F 12/09/21 10:39 Pulse 99 12/09/21 12:50 Resp 16 12/09/21 12:50 BP 109/65 12/09/21 12:50 Pulse Ox 100 12/09/21 12:50 BMI result Body Mass Index 26.6 Const: Other: Somnolent male patient, the patient's chin is resting on his chest, he is able to open his eyes and answer questions. He is oriented to person, he did tell me that he is dizzy, he has coughing feels short of breath. Orientation/consciousness: oriented to person HENMT: Head: Yes normal to inspection, Yes normocephalic and Yes atraumatic Ears: external ears normal General nose exam: Normal external nose present Face and sinus: Yes normal facial exam Mouth: Normal oral and palatal mucosa present Throat: Yes posterior oropharynx normal Eyes: General: appearance normal, both eyes and all related structures Neck: Neck: Yes normal visual inspection, Yes no lymphadenopathy, Yes trachea midline and Yes supple Chest: Chest palpation & inspection: normal inspection of the chest and normal palpation of entire chest wall Resp: Effort & Inspection: normal respiratory effort Auscultation: rhonchi (Left base) Cardio: Rate: regular rate Rhythm: regular rhythm Heart sounds: S1 normal heart sound present, S2 normal heart sound present and no murmurs GI: Inspection: Yes normal to inspection Palpation (GI): Soft to palpation, nontender and no guarding Auscultation: normal bowel sounds : General: Yes no CVA tenderness Back/Spine/Pelvis: Back: no CVA tenderness Skin: General skin exam: no rashes or lesions noted Neuro: General: oriented to person Extrem: General: Yes normal to inspection Psych: Appearance: grossly normal Speech and movement: Normal speech and movement present Course Course Course Narrative: 56-year-old male who has a history of dysphagia who is seen here frequently for dizziness and aspiration pneumonia. He was sent to the emergency department by [facility] for evaluation of dizziness, shortness of breath and record states he is COVID positive. Do not have a record as to when this test was done in our system. Vital signs revealed that the patient was tachycardic with a pulse of 117 otherwise was unremarkable. The patient's lung exam did reveal rhonchi at the right base. I did order laboratory evaluation, one-view chest x-ray, COVID-19 test. Patient will be treated with normal saline IV x1 L. 1442: Patient's laboratory evaluation was unremarkable except for low glucose of 39 with a point of care glucose of 31. The patient was given D50 IV and started on D5 NS at 125 cc/hour. Patient's white blood count was normal in 7500. The patient's COVID test was negative. Chest x-ray revealed no acute findings was similar to the patient's chest x-ray in October 2021. Given this finding I do not think that he has an aspiration pneumonia. The patient will be discharged back to his facility. [facility] Lab Data Result diagrams: 12/09/21 12:05 12/09/21 12:05 Labs: Lab Results 12/09/21 12/09/21 12/09/21 Range/Units 12:04 12:04 12:05 WBC 7.5 (4.8-10.8) X10*3/uL RBC 4.97 (4.60-5.80) X10*6/uL Hgb 12.2 L (14.0-18.0) g/dl Hct 39.6 L (42.0-52.0) % MCV 79.7 L (80.0-98.0) fL MCH 24.5 L (27.0-33.0) pg MCHC 30.8 L (31.0-36.0) g/dl RDW 16.9 H (11.0-16.0) % Plt Count 268 (160-400) X10*3/uL MPV 9.7 (9.4-12.4) fL Immature Gran % (Auto) 0.3 (0.0-0.4) % Neut % (Auto) 78.2 H (45-73) % Lymph % (Auto) 12.6 L (20-40) % Platte % (Auto) 8.6 (2-11) % Eos % (Auto) 0.0 (0-4) % Baso % (Auto) 0.3 (0-2) % Lymph # (Auto) 0.9 L (1.2-4.9) X10*3/uL Platte # (Auto) 0.6 (0.1-1.2) X10*3/uL Eos # (Auto) 0.0 (0.0-0.4) X10*3/uL Baso # (Auto) 0.0 (0.0-0.2) X10*3/uL Abs Immat Gran (auto) 0.02 (0.00-0.03) X10*3/uL Absolute Neuts (auto) 5.8 (2.0-8.3) x10*3/uL Absolute Nucleated RBC 0.000 (0.0-0.012) X10*3/uL Nucleated RBC % (auto) 0.0 (0.0-0.2) /100WBC PT (9.9-13.0) SEC INR (0.9-1.1) APTT (24.1-38.0) SEC Sodium (135-145) mmol/L Potassium (3.3-5.1) mmol/L Chloride (96-108) mmol/L Carbon Dioxide (22-29) mmol/L Anion Gap (12-20) BUN (9-16) mg/dL Creatinine (0.5-1.4) mg/dL Estim Creat Clear Calc Estimated GFR POC Glucose (60-115) mg/dL Random Glucose (60-115) mg/dL Lactic Acid 0.9 (0.5-2.0) mmol/L Calcium (8.4-10.2) mg/dL Total Bilirubin (0.0-1.0) mg/dL AST (5-37) U/L ALT (0-40) U/L Alkaline Phosphatase (39-117) U/L Total Protein (6.5-8.0) g/dL Albumin (3.5-5.0) g/dL Lipase (8-78) U/L COVID-19 (ANDERS) Negative (Negative) COVID-19 Clin Com See Note 12/09/21 12/09/21 12/09/21 Range/Units 12:05 12:05 12:33 WBC (4.8-10.8) X10*3/uL RBC (4.60-5.80) X10*6/uL Hgb (14.0-18.0) g/dl Hct (42.0-52.0) % MCV (80.0-98.0) fL MCH (27.0-33.0) pg MCHC (31.0-36.0) g/dl RDW (11.0-16.0) % Plt Count (160-400) X10*3/uL MPV (9.4-12.4) fL Immature Gran % (Auto) (0.0-0.4) % Neut % (Auto) (45-73) % Lymph % (Auto) (20-40) % Platte % (Auto) (2-11) % Eos % (Auto) (0-4) % Baso % (Auto) (0-2) % Lymph # (Auto) (1.2-4.9) X10*3/uL Platte # (Auto) (0.1-1.2) X10*3/uL Eos # (Auto) (0.0-0.4) X10*3/uL Baso # (Auto) (0.0-0.2) X10*3/uL Abs Immat Gran (auto) (0.00-0.03) X10*3/uL Absolute Neuts (auto) (2.0-8.3) x10*3/uL Absolute Nucleated RBC (0.0-0.012) X10*3/uL Nucleated RBC % (auto) (0.0-0.2) /100WBC PT 12.4 (9.9-13.0) SEC INR 1.1 (0.9-1.1) APTT 43.0 H (24.1-38.0) SEC Sodium 142 (135-145) mmol/L Potassium 4.2 (3.3-5.1) mmol/L Chloride 106 (96-108) mmol/L Carbon Dioxide 27 (22-29) mmol/L Anion Gap 13 (12-20) BUN 18 H (9-16) mg/dL Creatinine 0.88 (0.5-1.4) mg/dL Estim Creat Clear Calc 80.3 Estimated GFR > 60 POC Glucose 31 L* (60-115) mg/dL Random Glucose 39 L* (60-115) mg/dL Lactic Acid (0.5-2.0) mmol/L Calcium 8.8 (8.4-10.2) mg/dL Total Bilirubin < 0.2 (0.0-1.0) mg/dL AST 19 D (5-37) U/L ALT 20 (0-40) U/L Alkaline Phosphatase 89 (39-117) U/L Total Protein 6.0 L (6.5-8.0) g/dL Albumin 3.6 (3.5-5.0) g/dL Lipase 11 (8-78) U/L COVID-19 (ANDERS) (Negative) COVID-19 Clin Com 12/09/21 12/09/21 Range/Units 13:04 14:17 WBC (4.8-10.8) X10*3/uL RBC (4.60-5.80) X10*6/uL Hgb (14.0-18.0) g/dl Hct (42.0-52.0) % MCV (80.0-98.0) fL MCH (27.0-33.0) pg MCHC (31.0-36.0) g/dl RDW (11.0-16.0) % Plt Count (160-400) X10*3/uL MPV (9.4-12.4) fL Immature Gran % (Auto) (0.0-0.4) % Neut % (Auto) (45-73) % Lymph % (Auto) (20-40) % Platte % (Auto) (2-11) % Eos % (Auto) (0-4) % Baso % (Auto) (0-2) % Lymph # (Auto) (1.2-4.9) X10*3/uL Platte # (Auto) (0.1-1.2) X10*3/uL Eos # (Auto) (0.0-0.4) X10*3/uL Baso # (Auto) (0.0-0.2) X10*3/uL Abs Immat Gran (auto) (0.00-0.03) X10*3/uL Absolute Neuts (auto) (2.0-8.3) x10*3/uL Absolute Nucleated RBC (0.0-0.012) X10*3/uL Nucleated RBC % (auto) (0.0-0.2) /100WBC PT (9.9-13.0) SEC INR (0.9-1.1) APTT (24.1-38.0) SEC Sodium (135-145) mmol/L Potassium (3.3-5.1) mmol/L Chloride (96-108) mmol/L Carbon Dioxide (22-29) mmol/L Anion Gap (12-20) BUN (9-16) mg/dL Creatinine (0.5-1.4) mg/dL Estim Creat Clear Calc Estimated GFR POC Glucose 161 H 132 H (60-115) mg/dL Random Glucose (60-115) mg/dL Lactic Acid (0.5-2.0) mmol/L Calcium (8.4-10.2) mg/dL Total Bilirubin (0.0-1.0) mg/dL AST (5-37) U/L ALT (0-40) U/L Alkaline Phosphatase (39-117) U/L Total Protein (6.5-8.0) g/dL Albumin (3.5-5.0) g/dL Lipase (8-78) U/L COVID-19 (ANDERS) (Negative) COVID-19 Clin Com Discharge Plan Discharge Clinical Impression: Hypoglycemia, Lethargy, Dizziness Patient Disposition: Home, Self-Care Additional Instructions: Your chest x-ray revealed no evidence of pneumonia. Your x-ray was unchanged from your x-ray in October. Your blood work revealed a low glucose of 39. You received D50 IV and was started on D5 NS drip while you are here in the emergency department. Your sugars have improved and were going to discharge her to home. This low blood sugar was probably the cause of your dizziness and shortness of breath today. Follow-up with your doctor in 2 days. Please return to the emergency department if your symptoms get worse or if you develop any symptoms that are concerning to you. Prescriptions: No Action clozapine 100 mg tablet 3 tab PO BEDTIME RF: 0 simvastatin 40 mg tablet 40 mg PO BEDTIME RF: 0 benztropine 1 mg tablet 1 tab PO BID RF: 0 budesonide 0.5 mg/2 mL suspension for nebulization 1 vial inhalation BID RF: 0 perphenazine 8 mg tablet 8 mg PO BEDTIME@2000 RF: 0 ipratropium-albuterol 0.5 mg-3 mg(2.5 mg base)/3 mL solution for nebulization 3 ml inhalation BID PRN (Reason: Wheezing) RF: 0 paroxetine HCl 40 mg tablet 40 mg PO DAILY RF: 0 perphenazine 16 mg tablet 16 mg PO BID@0800,2000 RF: 0 Lantus Solostar U-100 Insulin 100 unit/mL (3 mL) insulin pen 40 unit subcut DAILY RF: 0 Invega Sustenna 156 mg/mL syringe 156 mg IM Q28D RF: 0 albuterol sulfate [ProAir HFA] 90 mcg/actuation HFA aerosol inhaler 2 inh inhalation QID PRN (Reason: shortness of breath or wheezing) RF: 0 ferrous sulfate 324 mg (65 mg iron) tablet,delayed release (DR/EC) 324 mg PO BID RF: 0 pantoprazole [Protonix] 40 mg tablet,delayed release (DR/EC) 40 mg PO BID Qty: 60 RF: 0 magnesium oxide 400 mg (241.3 mg magnesium) Tablet 400 mg PO BIDPC Qty: 60 RF: 0 aspirin 81 mg tablet,delayed release (DR/EC) 1 tab PO DAILY RF: 0 ammonium lactate 12 % lotion 1 appl topical BID RF: 0 amoxicillin-pot clavulanate [Augmentin] 875-125 mg tablet 1 tab PO BID Qty: 10 RF: 0 metformin 1,000 mg tablet 1,000 mg PO BIDWM RF: 0 triamcinolone acetonide 0.1 % cream 1 appl topical BID RF: 0
[2021-12-09 11:43] VITALS: BP 108/69; PULSE 108; RESP 24; O2SAT 97
--- NOTE | 2021-12-09 11:43 | PC.NURSE ---
Pt is alert/oriented to self and time. Eyes closed and states dizziness worse with eyes open. LS noted with fine crackles to right lower lobe. Sinus tach on tele. Sat 91% on room air, 2lpm via nc applied, sat up to 97%.
[2021-12-09] MEDS: 0.9 % Sodium Chloride 1,000 ML 999 ML IV (12:00)
[2021-12-09 12:13] LABS: MANUAL DIFF FLAG NO
[2021-12-09 12:16] LABS: Basophils Percent Auto 0.3 % (0-2); Hematocrit 39.6 % (42.0-52.0); Hemoglobin 12.2 g/dl (14.0-18.0); Imm Gran Abs Auto 0.02 X10*3/uL (0.00-0.03); Imm Gran Pct Auto 0.3 % (0.0-0.4); Lymphocytes Absolute Auto 0.9 X10*3/uL (1.2-4.9); Lymphocytes Percent Auto 12.6 % (20-40); Mean Corpuscular HGB Conc 30.8 g/dl (31.0-36.0); Mean Corpuscular Hemoglobin 24.5 pg (27.0-33.0); Mean Corpuscular Volume 79.7 fL (80.0-98.0); Mean Platelet Volume 9.7 fL (9.4-12.4); Monocytes Absolute Auto 0.6 X10*3/uL (0.1-1.2); Monocytes Percent Auto 8.6 % (2-11); Neutrophils Absolute Auto 5.8 x10*3/uL (2.0-8.3); Neutrophils Percent Auto 78.2 % (45-73); Platelet Count 268 X10*3/uL (160-400); Red Blood Count 4.97 X10*6/uL (4.60-5.80); Red Cell Distribution Width 16.9 % (11.0-16.0); White Blood Count 7.5 X10*3/uL (4.8-10.8)
[2021-12-09 12:21] LABS: INTERNATIONAL NORM RATIO 1.1 (0.9-1.1); Prothrombin Time 12.4 SEC (9.9-13.0)
[2021-12-09 12:28] LABS: Lactic Acid 0.9 mmol/L (0.5-2.0)
[2021-12-09 12:34] LABS: COVID-19 Test Negative (Negative); IDNOW Serial# 9DD0AD1C
[2021-12-09] MEDS: Dextrose 50 % 25 GM/50 ML SYRINGE IVPUSH (12:35)
[2021-12-09 12:37] LABS: Alanine Aminotransferase 20 U/L (0-40); Albumin Level 3.6 g/dL (3.5-5.0); Alkaline Phosphatase 89 U/L (39-117); Anion Gap 13 (12-20); Aspartate Amino Transferase 19 U/L (5-37); Blood Urea Nitrogen 18 mg/dL (9-16); Calcium 8.8 mg/dL (8.4-10.2); Carbon Dioxide 27 mmol/L (22-29); Chloride 106 mmol/L (96-108); Creatinine Clr Calc Pharmacy 80.3; Estimated Glomerular Filt Rate > 60; Lipase 11 U/L (8-78); Potassium 4.2 mmol/L (3.3-5.1); Sodium 142 mmol/L (135-145)
[2021-12-09 12:43] LABS: Glucose, Whole Blood 31 mg/dL (60-115)
[2021-12-09 12:45] LABS: Bilirubin Total < 0.2 mg/dL (0.0-1.0); Glucose Random 39 mg/dL (60-115)
--- NOTE | 2021-12-09 12:47 | PC.NURSE ---
Pt diaphoretic and decreased LOC, POC checked and 31, 25g of Dextrose given. Pt now back to baseline mentation, will start D5NS per Dr Villeda, pt NPO at this time
[2021-12-09 12:50] VITALS: BP 109/65; PULSE 99; RESP 16; O2SAT 100
[2021-12-09] MEDS: Dextrose 5 % and 0.9 % NaCl 1,000 ML 125 ML IVCONT (12:51)
[2021-12-09 13:11] LABS: Glucose, Whole Blood 161 mg/dL (60-115)
[2021-12-09 14:21] LABS: Glucose, Whole Blood 132 mg/dL (60-115)
[2021-12-09 16:27] LABS: Glucose, Whole Blood 124 mg/dL (60-115)
[2021-12-09 16:29] VITALS: BP 141/89; PULSE 104; RESP 18; O2SAT 98
--- NOTE | 2021-12-09 16:30 | PC.NURSE ---
POC 124, awaits ambulance transport back to long term. Called number for long term x 2, line with busy dial tone. Pt eating snack at this time
== END 2021-12-09 17:35 | disposition home or self-care (01) ==
PROVIDERS: Emergency Provider Emergency Medicine Emergency Medical Services
DX: E11.649 Type 2 diabetes mellitus with hypoglycemia without coma (principal); R53.83 Other fatigue; R42 Dizziness and giddiness; Z20.822 Contact with and (suspected) exposure to COVID-19; I10 Essential (primary) hypertension; E78.5 Hyperlipidemia, unspecified; Q86.0 Fetal alcohol syndrome (dysmorphic); F20.0 Paranoid schizophrenia; Z87.01 Personal history of pneumonia (recurrent); Z79.02 Long term (current) use of antithrombotics/antiplatelets; Z79.899 Other long term (current) drug therapy; Z79.82 Long term (current) use of aspirin; Z79.4 Long term (current) use of insulin
CPT/HCPCS: 36415; 71045; 80053; 82947; 83605; 83690; 85025; 85610; 85730; 87040; 87635; 96361; 96365; 96366; 96375; 99285

== ENCOUNTER 2022-02-10 23:11 | Inpatient (IN) | payer OTHER, SELFPAY ==
--- NOTE | 2022-02-10 | ECG_ITS ---
Test Reason : UNRESPONSIVE Blood Pressure : / mmHG Vent. Rate : 103 BPM Atrial Rate : 103 BPM P-R Int : 178 ms QRS Dur : 080 ms QT Int : 386 ms P-R-T Axes : 059 087 058 degrees QTc Int : 505 ms Sinus tachycardia Otherwise normal ECG When compared with ECG of 29-SEP-2021 02:37, No significant change was found Referred By: Shannan Mckeon Electronically Signed By:Marshall Wang
--- NOTE | ~2022-02-10 | CT_ITS ---
EXAMINATION: CT SOFT TISSUE NECK WITHOUT CONTRAST CLINICAL INFORMATION: Question food impaction. COMPARISON: None TECHNIQUE: Helical imaging was performed in the axial plane with generation of coronal and sagittal reformatted images. This CT examination was performed using dose optimization techniques as appropriate, variously including the following: *Automated exposure control *Adjustment of mA and/or kV according to patient size (this includes techniques or standardized protocols for targeted exams where dose is matched to indication/reason for exam; i.e. extremities or head) *Use of iterative reconstruction technique DLP: 859 mGy-cm FINDINGS: There is an OG tube in place and there is fluid distention of the upper thoracic esophagus. No radiopaque foreign body is seen within the distended fluid-filled esophagus or within the collapsed postcricoid hypopharynx. An ETT is low-lying in position and is directed towards the right mainstem bronchus. There are patchy areas of ground-glass density in the imaged right lung which are nonspecific. Nodular areas of consolidation are present in the right upper lobe near the apex. There are no pleural effusions visible. The thyroid gland is mildly heterogeneous. No bulky cervical adenopathy visible. The submandibular glands are normal. There is fatty atrophy of the right parotid gland. The left parotid gland appears normal. The orbits are normal. Multilevel cervical spondylosis evident with a reversal of the normal cervical lordosis. There is a rightward curvature of the cervical spine as well. The imaged portions of the brain demonstrate no acute abnormality. There is moderate ethmoid sinus mucosal disease. A wide osseous defect is noted along the floor of the hard palate centrally of indeterminate etiology. No discrete soft tissue mass is visible, though assessment is limited on this noncontrast study. Severe leftward nasal septal deviation. CT/CT soft tissue neck wo con IMPRESSION: Patchy areas of airspace disease within the right lung which may be infectious/inflammatory in etiology. Aspiration cannot be ruled out. ETT in place which is low-lying in position and directed towards the right mainstem bronchus. Partially visualized fluid distention of the esophagus from the thoracic inlet to the level of the javier with an OG tube in place. No radiopaque foreign body identified. Wide osseous defect along the floor of the hard palate spanning across the floor of the nasal passages which is of indeterminate etiology. Recommend correlation with direct visual inspection to exclude an underlying lesion. Moderate ethmoid sinus disease and aerosolized mucosal secretions in the left frontal sinus cavity. Significant leftward nasal septal deviation.
--- NOTE | ~2022-02-10 | XR_ITS ---
EXAMINATION: XR CHEST CLINICAL INFORMATION: OG tube COMPARISON: Same date at 12:04 AM. TECHNIQUE: Frontal view of the chest was obtained. FINDINGS: Right IJ central venous catheter tip terminates near the cavoatrial junction. ET tube terminates 2 cm from the javier. OG tube extends into the stomach. EKG leads overlie the chest. Lung volumes are low with bibasilar atelectasis. No pneumothorax consolidation, or pleural effusion. Cardiac and mediastinal contours are unchanged. No acute osseous findings. XR/XR chest 1V IMPRESSION: 1. OG tube extends terminates within the stomach. 2. ET tube terminates 2 cm from the javier. 3. Low lung volumes with bibasilar atelectasis.
--- NOTE | ~2022-02-10 | CT_ITS ---
EXAMINATION: CT HEAD WITHOUT CONTRAST CLINICAL INFORMATION: Coma post cardiac arrest. COMPARISON: Previous head CT 02/11/2022. TECHNIQUE: Contiguous axial imaging was performed from the skull base to vertex without intravenous administration of contrast. This CT examination was performed using dose optimization techniques as appropriate, variously including the following: *Automated exposure control *Adjustment of mA and/or kV according to patient size (this includes techniques or standardized protocols for targeted exams where dose is matched to indication/reason for exam; i.e. extremities or head) *Use of iterative reconstruction technique DLP: 838 mGy-cm FINDINGS: There is no evidence of an extra-axial collection. There is no evidence of intra-axial or extra-axial hemorrhage. There is new diffuse loss of kirby-white matter differentiation and effacement of the gyri and sulci suggestive of diffuse brain edema. There is mild nonspecific periventricular white matter disease. No mass, mass effect or acute infarct is seen. No evidence of herniation is seen. There is new sinus disease in the left frontal, ethmoid and bilateral maxillary sinuses. There is a foreign body seen in the nasal cavity and ethmoid and sphenoid sinuses. This measures 4.4 cm in length and is unchanged. There is soft tissue opacification of the mastoid air cells, left greater than right. Middle ears are clear. No skull fracture is seen. CT/CT head/brain wo con IMPRESSION: New loss of kirby-white matter differentiation and effacement of the gyri and sulci suggestive of global brain edema. Stable appearance to the foreign body in the nasal cavity and ethmoid and sphenoid sinuses. Increasing sinusitis. Findings were communicated Dr. Stallworth by telephone on 02/15/2022 at 9:30 AM.
--- NOTE | ~2022-02-10 | XR_ITS ---
EXAMINATION: PORTABLE CHEST 1 VIEW CLINICAL INFORMATION: OGT placement . COMPARISON: 02/11/2022. TECHNIQUE: Portable frontal view of the chest was obtained. FINDINGS: Endotracheal tube tip approximately 4 cm both javier. Nasogastric tube tip below level the diaphragm although the side port is above the expected GE junction and this could be advanced. Right IJ central venous catheter tip near the cavoatrial junction. Persistent bibasilar consolidation/atelectasis similar to 2 days ago. No significant effusion. Lung apices are not included to assess for subtle pneumothorax. Cardiac silhouette within normal limits for size. XR/XR chest 1V IMPRESSION: Tubes and lines as described. Side-port of the nasogastric tube is likely just above the GE junction and this could be slightly advanced. Persistent basilar opacities.
--- NOTE | ~2022-02-10 | CT_ITS ---
EXAMINATION: HEAD CT WITHOUT CONTRAST CERVICAL SPINE CT WITHOUT CONTRAST CLINICAL INFORMATION: fall cardiac arrest unresponsive COMPARISON: 09/28/2021 and 03/03/2012 TECHNIQUE: Contiguous axial imaging of the head was performed without the administration of IV contrast. Axial multidetector volumetric images were also performed through the cervical spine without intravenous contrast. Multiplanar reconstructed images in coronal and sagittal orientations were submitted. This CT examination was performed using dose optimization techniques as appropriate, variously including the following: *Automated exposure control *Adjustment of mA and/or kV according to patient size (this includes techniques or standardized protocols for targeted exams where dose is matched to indication/reason for exam; i.e. extremities or head) *Use of iterative reconstruction technique DOSE: 1064 mGy-cm FINDINGS: HEAD: There is no evidence of acute intracranial hemorrhage or territorial infarction. No abnormal mass-effect or midline shift. No extra-axial fluid collections. [place]allpa to white matter differentiation is well preserved. The ventricles are normal in size and configuration. A few foci of hypoattenuation in the subcortical and periventricular white matter are most consistent with chronic microangiopathic changes. ET tube is present in the oral cavity. Maxilla is edentulous. Within the prior study, there is a linear metallic foreign body on the right nasal cavity extending through the vomer into the sphenoid sinuses, terminating just proximal to the sella turcica. Mild mucosal thickening in the ethmoid and frontal sinuses. Mastoid air cells are clear. CERVICAL SPINE: Vertebral body heights are normal. No fractures of the vertebral bodies or posterior elements. Reversal of the normal cervical lordosis is likely positional or degenerative. No vertebral body or posterior element subluxation. Degenerative changes are present at the craniocervical and atlantoaxial articulations, though normal alignment is maintained. [id number]-ns-ozgqpjmi multilevel degenerative disc disease is characterized by loss of intervertebral disc height and prominent uncovertebral and endplate osteophytes, most notably from C4-C5 through C7-T1. Prominent facet arthropathy is evident on the right at C2-C3 and C3-C4. Other vertebral osteophytes produce multilevel neural foraminal encroachment, most notably on the right at C2-C3 and C7-T1 and on the left at C6-7. No significant paravertebral soft tissue swelling. Atherosclerotic calcifications are present in the carotid arteries. Within the hypopharyngeal airway, there is a 2.4 x 1.8 x 3 cm tubular low-density, heterogeneous foreign body which is of uncertain etiology which displaces the T-tube to the left. This may correspond to an ingested food bolus or other ingested material. A similar focus is evident within the proximal esophagus, partially imaged. Emphysematous changes are partially seen at the lung apices. CT/CT cervical spine wo con IMPRESSION: 1. No acute intracranial pathology. 2. No acute fracture or malalignment in the cervical spine. Kvag-uv-kxulizuy multilevel degenerative disc disease. 3. A 3 cm long ovoid heterogeneous foreign body in the hypopharynx, most likely corresponding to a food bolus. This contributes to significant airway narrowing and displacement of the ET tube to the left. A similar focus is present in the proximal esophagus. This critical result was discussed by telephone with Dr. Mckeon on 02/11/2022 at 2:14 AM.
--- NOTE | ~2022-02-10 | CT_ITS ---
EXAMINATION: CT CHEST WITHOUT CONTRAST CLINICAL INFORMATION: Question food impaction/aspiration. COMPARISON: Previous chest x-ray, cervical spine CT and CT of the soft tissues of the neck from earlier the same day TECHNIQUE: Multidetector volumetric CT imaging of the chest was done. Axial MIP volume rendering provided. Sagittal and coronal reformatted images were obtained. This CT examination was performed using dose optimization techniques as appropriate, variously including the following: *Automated exposure control *Adjustment of mA and/or kV according to patient size (this includes techniques or standardized protocols for targeted exams where dose is matched to indication/reason for exam; i.e. extremities or head) *Use of iterative reconstruction technique DLP: 322 mGy-cm FINDINGS: LUNGS: Endotracheal tube tip is 1.5 cm above the javier. There is patchy groundglass attenuation and increased interstitial markings and small nodular opacities in the right upper lobe. There is mild increased groundglass attenuation seen in the right middle lobe. There is denser atelectasis or consolidation in the inferior segment of the lingula and bilateral lower lobes. MEDIASTINUM: There is a nasogastric tube with tip in the stomach. There are areas of esophageal dilatation and with the esophagus is filled with fluid in the cervical and proximal thoracic esophagus and shorter segment of the mid to distal thoracic esophagus. No radiopaque foreign body is appreciated. The heart is enlarged. There is a trace pericardial effusion. The thoracic aorta is normal in caliber. There are small mediastinal lymph nodes. There are no enlarged hilar or mediastinal lymph nodes. There is a right jugular line with tip projecting over the SVC. PLEURA: Trace left pleural effusion. No right pleural effusion. No pneumothorax. AXILLA: No lymphadenopathy. UPPER ABDOMEN: The liver and spleen may be enlarged. OSSEOUS STRUCTURES: There are degenerative changes of the spine. There is a recent appearing mild compression fracture of the anterior superior endplate of the T12 vertebral body. There are acute anterior left fifth through seventh and right fifth through eighth rib fractures. CT/CT chest wo con IMPRESSION: Endotracheal tube 1.5 cm above the javier. Nasogastric tube in the stomach. 2 areas of focal fluid-filled dilated esophagus involving the cervical and proximal thoracic esophagus and short segment involving the mid to distal thoracic esophagus. No radiopaque soft tissue foreign body seen. Patchy groundglass attenuation areas, small nodular opacities and increased interstitial markings in the right upper lobe.. Faint groundglass attenuation in the right middle lobe. Pneumonitis and asymmetric right-sided pulmonary edema should be considered. Denser atelectasis or consolidation in the inferior segment of the lingula and bilateral lower lobes. Enlarged heart. Probable hepatosplenomegaly. Acute left anterior fifth through seventh and right anterior lateral fifth through eighth rib fractures. Recent appearing mild compression fracture of the T12 vertebral body. Fleischner guidelines were followed.
--- NOTE | ~2022-02-10 | XR_ITS ---
EXAMINATION: XR CHEST CLINICAL INFORMATION: Intubated. Central line placement. COMPARISON: 12/09/2021 TECHNIQUE: Frontal view of the chest was obtained. FINDINGS: Right IJ central venous catheter terminates at the cavoatrial junction. The ET tube terminates at the javier, biased toward the right mainstem bronchus. EKG leads overlie the chest. Lung volumes are low with bibasilar atelectasis. Subtle interstitial opacities including B lines suggest mild interstitial edema. Pulmonary venous congestion is noted. Airspace opacity in the right midlung may correspond to atelectasis or early alveolar edema. No pneumothorax or pleural effusion. No acute osseous findings. XR/XR chest 1V IMPRESSION: 1. ET tube terminates at the level of the javier. Recommend retraction by 3 cm. 2. Right IJ central venous catheter terminates over the cavoatrial junction. 3. Low lung volumes with multifocal atelectasis and mild interstitial pulmonary edema. Patchy opacities in the right midlung may correspond to areas of early alveolar edema. This critical result was discussed by telephone with Dr. Rudolph on 02/11/2022 at 12:17 AM.
[2022-02-10 23:17] VITALS: BP 90/46; PULSE 120; BMI 28.0
[2022-02-10 23:26] LABS: MANUAL DIFF FLAG NO
[2022-02-10 23:28] LABS: Basophils Percent Auto 0.3 % (0-2); Eosinophils Percent Auto 0.3 % (0-4); Hematocrit 39.5 % (42.0-52.0); Hemoglobin 11.7 g/dl (14.0-18.0); Imm Gran Abs Auto 0.41 X10*3/uL (0.00-0.03); Imm Gran Pct Auto 4.5 % (0.0-0.4); Lymphocytes Percent Auto 33.2 % (20-40); Mean Corpuscular HGB Conc 29.6 g/dl (31.0-36.0); Mean Corpuscular Hemoglobin 26.4 pg (27.0-33.0); Mean Corpuscular Volume 89.2 fL (80.0-98.0); Mean Platelet Volume 9.9 fL (9.4-12.4); Monocytes Absolute Auto 0.8 X10*3/uL (0.1-1.2); Monocytes Percent Auto 8.9 % (2-11); NRBC Pct Auto 0.2 /100WBC (0.0-0.2); Neutrophils Absolute Auto 4.8 x10*3/uL (2.0-8.3); Neutrophils Percent Auto 52.8 % (45-73); Platelet Count 281 X10*3/uL (160-400); Red Blood Count 4.43 X10*6/uL (4.60-5.80); Red Cell Distribution Width 15.7 % (11.0-16.0); White Blood Count 9.1 X10*3/uL (4.8-10.8)
[2022-02-10 23:34] LABS: INTERNATIONAL NORM RATIO 1.1 (0.9-1.1)
[2022-02-10 23:35] VITALS: BP 139/84; BP 91/47; PULSE 112; PULSE 114; RESP 18; TEMP 34.3; TEMP 35.2; O2SAT 98; O2SAT 99
[2022-02-10 23:36] LABS: Glucose, Whole Blood 259 mg/dL (60-115)
[2022-02-10 23:37] LABS: VBG Base Excess -8.1 mmol/L; VBG HCO3 23 mmol/L (22-26); VBG pCO2 77 mmHg; VBG pH 7.08 (7.32-7.43); VBG pO2 73 mmHg
[2022-02-10 23:39] VITALS: BP 137/84; PULSE 113; TEMP 34.7; O2SAT 98
[2022-02-10 23:40] LABS: Venous Blood Gas Refer to POC result
[2022-02-10 23:43] LABS: Lactic Acid 9.9 mmol/L (0.5-2.0)
[2022-02-10 23:46] LABS: COVID-19 Test Negative (Negative)
[2022-02-10 23:51] LABS: B Type Natriuretic Peptide 16 pg/mL (<100); Troponin-I High Sensitivity 4.3 ng/L (<3.5-35.0)
[2022-02-10 23:56] LABS: Acetone, serum QL Negative (Negative)
[2022-02-11] VITALS (34 sets, daily range): BP systolic 117–209; BP diastolic 68–115; PULSE 86–110; RESP 14–19; TEMP 34–38.4; O2SAT 89–100; BMI 24.9
[2022-02-11] LABS: Alanine Aminotransferase 33 U/L (0-40); Albumin Level 3.2 g/dL (3.5-5.0); Alkaline Phosphatase 96 U/L (39-117); Anion Gap 21 (12-20); Aspartate Amino Transferase 36 U/L (5-37); Bilirubin Total 0.2 mg/dL (0.0-1.0); Blood Urea Nitrogen 19 mg/dL (9-16); Calcium 8.1 mg/dL (8.4-10.2); Carbon Dioxide 20 mmol/L (22-29); Chloride 105 mmol/L (96-108); Creatinine Clr Calc Pharmacy 75.4; Estimated Glomerular Filt Rate > 60; Glucose Random 284 mg/dL (60-115); Magnesium 1.9 mg/dL (1.6-2.6); Potassium 3.8 mmol/L (3.3-5.1); Sodium 142 mmol/L (135-145); Total Protein 5.4 g/dL (6.5-8.0)
[2022-02-11 00:04] LABS: Appearance Urine HAZY; Color Urine YELLOW; Glucose Urine UA 500 MG/DL (NEG); Leukocyte Esterase Urine NEG (NEG); Nitrite Urine NEG (NEG); Urine Blood NEG (NEG); Urine Ketones NEG (NEG); Urine Protein TRACE MG/DL (NEG-TRACE)
[2022-02-11 00:24] LABS: Amphetamine Screen Urine Not Detected (Not Detect); Barbiturates, Urine Not Detected (Not Detect); Benzodiazepines Screen Urine Not Detected (Not Detect); Cannabinoid Screen Urine Not Detected (Not Detect); Cocaine Screen Urine Not Detected (Not Detect); Fentanyl, urine Not Detected (Not Detect); Opiate Screen Urine Not Detected (Not Detect); Phencyclidine Screen Urine Not Detected (Not Detect)
--- NOTE | 2022-02-11 00:26 | ED_ITS ---
HPI - General Adult General Chief complaint: Cardiac Arrest/CPR Stated complaint: cardiac arrest Time Seen by Provider: 02/10/22 23:18 Source: EMS Mode of arrival: EMS Limitations: other History of Present Illness HPI narrative: Patient comes to the emergency room after having a witnessed cardiac arrest. Patient was in his correction, seems the patient was walking around the house, for unclear reason he collapsed. Patient was unconscious, no pulse was palpated per staff and CPR was started by bystanders. When EMS arrived, patient was in a systole, CPR was continued, 2 rounds of epinephrine were given. Patient gained ROSC. Patient was intubated in the field with a 7.5 ET tube. Related Data Home Medications Medication Instructions Recorded Confirmed benztropine 1 mg tablet 1 tab PO BID 10/07/20 09/28/21 budesonide 0.5 mg/2 mL suspension 1 vial INHALATION BID 10/07/20 09/28/21 for nebulization clozapine 100 mg tablet 3 tab PO BEDTIME 10/07/20 09/28/21 perphenazine 8 mg tablet 8 mg PO BEDTIME@199910/07/20 09/28/21 simvastatin 40 mg tablet 40 mg PO BEDTIME 10/07/20 09/28/21 albuterol sulfate 90 mcg/actuation 2 inh INHALATION QID PRN 04/25/21 09/28/21 aerosol inhaler (ProAir HFA) ferrous sulfate 324 mg (65 mg 324 mg PO BID 04/25/21 09/28/21 iron) tablet,delayed release insulin glargine 100 unit/mL (3 40 unit SUBCUT DAILY 04/25/21 09/28/21 mL) subcutaneous pen (Lantus Solostar U-100 Insulin) ipratropium 0.5 mg-albuterol 3 mg 3 ml INHALATION BID PRN 04/25/21 09/28/21 (2.5 mg base)/3 mL nebulization soln paliperidone palmitate 156 mg/mL 156 mg IM Q28D 04/25/21 09/28/21 intramuscular syringe (Invega Sustenna) paroxetine HCl 40 mg tablet 40 mg PO DAILY 04/25/21 09/28/21 perphenazine 16 mg tablet 16 mg PO BID@0800,199904/25/21 09/28/21 metformin 1,000 mg tablet 1,000 mg PO BIDWM 06/17/21 09/28/21 triamcinolone acetonide 0.1 % 1 appl TOPICAL BID 06/17/21 09/28/21 topical cream ammonium lactate 12 % lotion 1 appl TOPICAL BID 09/28/21 09/28/21 aspirin 81 mg tablet,delayed 1 tab PO DAILY 09/28/21 09/28/21 release Previous Rx's Medication Instructions Recorded pantoprazole 40 mg tablet,delayed 40 mg PO BID #60 tab 04/28/21 release (Protonix) magnesium oxide 400 mg (241.3 mg 400 mg PO BIDPC #60 tab 05/05/21 magnesium) tablet amoxicillin 875 mg-potassium 1 tab PO BID #10 tab 10/01/21 clavulanate 125 mg tablet (Augmentin) Allergies Allergy/AdvReac Type Severity Reaction Status Date / Time prednisone Allergy Unknown Verified 02/10/22 23:21 Review of Systems Review of Systems: Yes Unobtainable due to mental condition PMFSH Past Medical History Medical History SANDIP (acute kidney injury) Aspiration pneumonia COPD (chronic obstructive pulmonary disease) Depression Diabetes Dysphagia Esophagitis with gastritis alcohol syndrome HTN (hypertension) Hyperkalemia Hyperkalemia Hyperlipidemia Internal hemorrhoids Internal hemorrhoids Iron deficiency anemia Iron deficiency anemia Obstructive sleep apnea Paranoia Schizo-affective schizophrenia Surgical History H/O endoscopy Social History Social History Household Members: Other Household Members Other:: correction Housing: Other Housing Other:: correction Do you presently have visiting nurse or other home services: No Unable to assess alcohol history related to: Unknown Alcohol intake: never Patient Tobacco Use Status: Former Tobacco user Tobacco use type: Cigarette Cigarette Packs Per Day: 1 Cigarettes Per Day: 20.0 e-Cigarette/Vaping Use: Currently Using Second Hand Smoke Exposure: No Substance Use Type: Crack/Cocaine Advance Directives: No Advance Directives Information Provided: No service: No Current occupational status: disabled Physical Exam ED Vital Signs: Vital Signs - 24 hr 02/10/22 23:17 02/10/22 23:35 02/11/22 00:10 Temperature 93.7 F L Pulse Rate 120 H 114 H 106 H Respiratory Rate 18 Blood Pressure 90/46 L 139/84 209/115 H Pulse Oximetry 98 100 02/11/22 00:12 02/11/22 00:54 02/11/22 01:46 Temperature 94.8 F L 96.3 F L Pulse Rate 97 98 Respiratory Rate 19 18 Blood Pressure 209/115 H 152/98 H 134/91 H Pulse Oximetry 100 98 BMI result Body Mass Index 28.0 Const Other: Appearance: Intubated Eyes: Fixed 3 mm, nonreactive to light ENT: ET tube in place Neck: Normal inspection. Neck supple. No lymph nodes noted. No crepitus CVS: Tachycardic, heart rate 110-120, strong Pulses, Normal S1 and S2 Respiratory: Patient being ventilated, ET tube in place Abdomen: Soft and nontender. No rigidity. No distention. Skin: Skin cool Extremities: No lower extremity edema. Neuro: No pupillary, no plantar reflexes Psych: Patient unresponsive Course Course Course Narrative: Elevated lactic acid, likely secondary to CPR. When patient arrived, patient had pulse, heart rate in the 120s, blood pressure in the low 70s. Dobutamine was started. Patient has a central line in the right IJ. It is unclear what happened to the patient. Patient is known to be prone to aspiration of pneumonia, maybe aspirated? Patient being treated empirically wit h antibiotic Initial rectal temperature 92 degrees F, patient is on a Rocio Hugger I discussed the patient with Dr. Kirkland, pt being admitted Procedures Central Line Placement Right IJ: Time Out Performed: Yes Patient Placed on Monitor/Pulse Ox: Yes MD Prep: mask, gown and gloves Central Line Prep: Chlorhexidine scrub Ultrasound Used for Placement: Yes Central Line Lumen Inserted: triple Post Procedure: sutured in place, good blood return, all ports aspirated, flushed, capped and sterile dressing applied Post Procedure X-Ray: tip of catheter in good position and no pneumothorax seen Patient Tolerated Procedure: well and no complications Complications: none Medical Decision Making Lab Data Result diagrams: 02/10/22 23:19 02/10/22 23:19 Labs: Lab Results 02/10/22 02/10/22 02/10/22 Range/Units 23:14 23:19 23:19 WBC 9.1 (4.8-10.8) X10*3/uL RBC 4.43 L (4.60-5.80) X10*6/uL Hgb 11.7 L (14.0-18.0) g/dl Hct 39.5 L (42.0-52.0) % MCV 89.2 (80.0-98.0) fL MCH 26.4 L (27.0-33.0) pg MCHC 29.6 L (31.0-36.0) g/dl RDW 15.7 (11.0-16.0) % Plt Count 281 (160-400) X10*3/uL MPV 9.9 (9.4-12.4) fL Immature Gran % (Auto) 4.5 H (0.0-0.4) % Neut % (Auto) 52.8 (45-73) % Lymph % (Auto) 33.2 (20-40) % Hanson % (Auto) 8.9 (2-11) % Eos % (Auto) 0.3 (0-4) % Baso % (Auto) 0.3 (0-2) % Lymph # (Auto) 3.0 (1.2-4.9) X10*3/uL Hanson # (Auto) 0.8 (0.1-1.2) X10*3/uL Eos # (Auto) 0.0 (0.0-0.4) X10*3/uL Baso # (Auto) 0.0 (0.0-0.2) X10*3/uL Abs Immat Gran (auto) 0.41 H (0.00-0.03) X10*3/uL Absolute Neuts (auto) 4.8 (2.0-8.3) x10*3/uL Absolute Nucleated RBC 0.020 H (0.0-0.012) X10*3/uL Nucleated RBC % (auto) 0.2 (0.0-0.2) /100WBC PT 13.0 (9.9-13.0) SEC INR 1.1 (0.9-1.1) VBG pH (7.32-7.43) VBG pCO2 mmHg VBG pO2 mmHg VBG HCO3 (22-26) mmol/L VBG O2 Saturation % VBG Base Excess mmol/L Sodium (135-145) mmol/L Potassium (3.3-5.1) mmol/L Chloride (96-108) mmol/L Carbon Dioxide (22-29) mmol/L Anion Gap (12-20) BUN (9-16) mg/dL Creatinine (0.5-1.4) mg/dL Estim Creat Clear Calc Estimated GFR POC Glucose 259 H (60-115) mg/dL Random Glucose (60-115) mg/dL Lactic Acid (0.5-2.0) mmol/L Calcium (8.4-10.2) mg/dL Magnesium (1.6-2.6) mg/dL Total Bilirubin (0.0-1.0) mg/dL AST (5-37) U/L ALT (0-40) U/L Alkaline Phosphatase (39-117) U/L Troponin I High Sens (<3.5-35.0) ng/L B-Natriuretic Peptide (<100) pg/mL Total Protein (6.5-8.0) g/dL Albumin (3.5-5.0) g/dL Urine Color Urine Appearance Urine pH (5.0-8.0) Ur Specific [place] (1.005-1.025) Urine Protein (NEG-TRACE) MG/DL Urine Glucose (UA) (NEG) MG/DL Urine Ketones (NEG) MG/DL Urine Blood (NEG) Urine Nitrite (NEG) Ur Leukocyte Esterase (NEG) Urine Opiates Screen (Not Detect) Urine Fentanyl Screen (Not Detect) Ur Barbiturates Screen (Not Detect) Ur Phencyclidine Scrn (Not Detect) Ur Amphetamines Screen (Not Detect) U Benzodiazepines Scrn (Not Detect) Urine Cocaine Screen (Not Detect) U Marijuana (THC) Screen (Not Detect) Acetone, Qual (Negative) COVID-19 (ANDERS) (Negative) COVID-19 Clin Com 02/10/22 02/10/22 02/10/22 Range/Units 23:19 23:19 23:19 WBC (4.8-10.8) X10*3/uL RBC (4.60-5.80) X10*6/uL Hgb (14.0-18.0) g/dl Hct (42.0-52.0) % MCV (80.0-98.0) fL MCH (27.0-33.0) pg MCHC (31.0-36.0) g/dl RDW (11.0-16.0) % Plt Count (160-400) X10*3/uL MPV (9.4-12.4) fL Immature Gran % (Auto) (0.0-0.4) % Neut % (Auto) (45-73) % Lymph % (Auto) (20-40) % Hanson % (Auto) (2-11) % Eos % (Auto) (0-4) % Baso % (Auto) (0-2) % Lymph # (Auto) (1.2-4.9) X10*3/uL Hanson # (Auto) (0.1-1.2) X10*3/uL Eos # (Auto) (0.0-0.4) X10*3/uL Baso # (Auto) (0.0-0.2) X10*3/uL Abs Immat Gran (auto) (0.00-0.03) X10*3/uL Absolute Neuts (auto) (2.0-8.3) x10*3/uL Absolute Nucleated RBC (0.0-0.012) X10*3/uL Nucleated RBC % (auto) (0.0-0.2) /100WBC PT (9.9-13.0) SEC INR (0.9-1.1) VBG pH (7.32-7.43) VBG pCO2 mmHg VBG pO2 mmHg VBG HCO3 (22-26) mmol/L VBG O2 Saturation % VBG Base Excess mmol/L Sodium 142 (135-145) mmol/L Potassium 3.8 (3.3-5.1) mmol/L Chloride 105 (96-108) mmol/L Carbon Dioxide 20 L (22-29) mmol/L Anion Gap 21 H (12-20) BUN 19 H (9-16) mg/dL Creatinine 1.18 (0.5-1.4) mg/dL Estim Creat Clear Calc 75.4 Estimated GFR > 60 POC Glucose (60-115) mg/dL Random Glucose 284 H D (60-115) mg/dL Lactic Acid (0.5-2.0) mmol/L Calcium 8.1 L D (8.4-10.2) mg/dL Magnesium 1.9 (1.6-2.6) mg/dL Total Bilirubin 0.2 (0.0-1.0) mg/dL AST 36 D (5-37) U/L ALT 33 (0-40) U/L Alkaline Phosphatase 96 (39-117) U/L Troponin I High Sens 4.3 (<3.5-35.0) ng/L B-Natriuretic Peptide 16 (<100) pg/mL Total Protein 5.4 L (6.5-8.0) g/dL Albumin 3.2 L (3.5-5.0) g/dL Urine Color Urine Appearance Urine pH (5.0-8.0) Ur Specific [place] (1.005-1.025) Urine Protein (NEG-TRACE) MG/DL Urine Glucose (UA) (NEG) MG/DL Urine Ketones (NEG) MG/DL Urine Blood (NEG) Urine Nitrite (NEG) Ur Leukocyte Esterase (NEG) Urine Opiates Screen (Not Detect) Urine Fentanyl Screen (Not Detect) Ur Barbiturates Screen (Not Detect) Ur Phencyclidine Scrn (Not Detect) Ur Amphetamines Screen (Not Detect) U Benzodiazepines Scrn (Not Detect) Urine Cocaine Screen (Not Detect) U Marijuana (THC) Screen (Not Detect) Acetone, Qual (Negative) COVID-19 (ANDERS) Negative (Negative) COVID-19 Clin Com See Note 02/10/22 02/10/22 02/10/22 Range/Units 23:19 23:19 23:23 WBC (4.8-10.8) X10*3/uL RBC (4.60-5.80) X10*6/uL Hgb (14.0-18.0) g/dl Hct (42.0-52.0) % MCV (80.0-98.0) fL MCH (27.0-33.0) pg MCHC (31.0-36.0) g/dl RDW (11.0-16.0) % Plt Count (160-400) X10*3/uL MPV (9.4-12.4) fL Immature Gran % (Auto) (0.0-0.4) % Neut % (Auto) (45-73) % Lymph % (Auto) (20-40) % Hanson % (Auto) (2-11) % Eos % (Auto) (0-4) % Baso % (Auto) (0-2) % Lymph # (Auto) (1.2-4.9) X10*3/uL Hanson # (Auto) (0.1-1.2) X10*3/uL Eos # (Auto) (0.0-0.4) X10*3/uL Baso # (Auto) (0.0-0.2) X10*3/uL Abs Immat Gran (auto) (0.00-0.03) X10*3/uL Absolute Neuts (auto) (2.0-8.3) x10*3/uL Absolute Nucleated RBC (0.0-0.012) X10*3/uL Nucleated RBC % (auto) (0.0-0.2) /100WBC PT (9.9-13.0) SEC INR (0.9-1.1) VBG pH 7.08 L* (7.32-7.43) VBG pCO2 77 mmHg VBG pO2 73 mmHg VBG HCO3 23 (22-26) mmol/L VBG O2 Saturation 86.0 % VBG Base Excess -8.1 mmol/L Sodium (135-145) mmol/L Potassium (3.3-5.1) mmol/L Chloride (96-108) mmol/L Carbon Dioxide (22-29) mmol/L Anion Gap (12-20) BUN (9-16) mg/dL Creatinine (0.5-1.4) mg/dL Estim Creat Clear Calc Estimated GFR POC Glucose (60-115) mg/dL Random Glucose (60-115) mg/dL Lactic Acid 9.9 H* (0.5-2.0) mmol/L Calcium (8.4-10.2) mg/dL Magnesium (1.6-2.6) mg/dL Total Bilirubin (0.0-1.0) mg/dL AST (5-37) U/L ALT (0-40) U/L Alkaline Phosphatase (39-117) U/L Troponin I High Sens (<3.5-35.0) ng/L B-Natriuretic Peptide (<100) pg/mL Total Protein (6.5-8.0) g/dL Albumin (3.5-5.0) g/dL Urine Color Urine Appearance Urine pH (5.0-8.0) Ur Specific [place] (1.005-1.025) Urine Protein (NEG-TRACE) MG/DL Urine Glucose (UA) (NEG) MG/DL Urine Ketones (NEG) MG/DL Urine Blood (NEG) Urine Nitrite (NEG) Ur Leukocyte Esterase (NEG) Urine Opiates Screen (Not Detect) Urine Fentanyl Screen (Not Detect) Ur Barbiturates Screen (Not Detect) Ur Phencyclidine Scrn (Not Detect) Ur Amphetamines Screen (Not Detect) U Benzodiazepines Scrn (Not Detect) Urine Cocaine Screen (Not Detect) U Marijuana (THC) Screen (Not Detect) Acetone, Qual Negative (Negative) COVID-19 (ANDERS) (Negative) COVID-19 Clin Com 02/10/22 02/10/22 02/11/22 Range/Units 23:57 23:57 00:43 WBC (4.8-10.8) X10*3/uL RBC (4.60-5.80) X10*6/uL Hgb (14.0-18.0) g/dl Hct (42.0-52.0) % MCV (80.0-98.0) fL MCH (27.0-33.0) pg MCHC (31.0-36.0) g/dl RDW (11.0-16.0) % Plt Count (160-400) X10*3/uL MPV (9.4-12.4) fL Immature Gran % (Auto) (0.0-0.4) % Neut % (Auto) (45-73) % Lymph % (Auto) (20-40) % Hanson % (Auto) (2-11) % Eos % (Auto) (0-4) % Baso % (Auto) (0-2) % Lymph # (Auto) (1.2-4.9) X10*3/uL Hanson # (Auto) (0.1-1.2) X10*3/uL Eos # (Auto) (0.0-0.4) X10*3/uL Baso # (Auto) (0.0-0.2) X10*3/uL Abs Immat Gran (auto) (0.00-0.03) X10*3/uL Absolute Neuts (auto) (2.0-8.3) x10*3/uL Absolute Nucleated RBC (0.0-0.012) X10*3/uL Nucleated RBC % (auto) (0.0-0.2) /100WBC PT (9.9-13.0) SEC INR (0.9-1.1) VBG pH (7.32-7.43) VBG pCO2 mmHg VBG pO2 mmHg VBG HCO3 (22-26) mmol/L VBG O2 Saturation % VBG Base Excess mmol/L Sodium (135-145) mmol/L Potassium (3.3-5.1) mmol/L Chloride (96-108) mmol/L Carbon Dioxide (22-29) mmol/L Anion Gap (12-20) BUN (9-16) mg/dL Creatinine (0.5-1.4) mg/dL Estim Creat Clear Calc Estimated GFR POC Glucose 222 H (60-115) mg/dL Random Glucose (60-115) mg/dL Lactic Acid (0.5-2.0) mmol/L Calcium (8.4-10.2) mg/dL Magnesium (1.6-2.6) mg/dL Total Bilirubin (0.0-1.0) mg/dL AST (5-37) U/L ALT (0-40) U/L Alkaline Phosphatase (39-117) U/L Troponin I High Sens (<3.5-35.0) ng/L B-Natriuretic Peptide (<100) pg/mL Total Protein (6.5-8.0) g/dL Albumin (3.5-5.0) g/dL Urine Color YELLOW Urine Appearance HAZY Urine pH 6.0 (5.0-8.0) Ur Specific [place] 1.010 (1.005-1.025) Urine Protein TRACE (NEG-TRACE) MG/DL Urine Glucose (UA) 500 H (NEG) MG/DL Urine Ketones NEG (NEG) MG/DL Urine Blood NEG (NEG) Urine Nitrite NEG (NEG) Ur Leukocyte Esterase NEG (NEG) Urine Opiates Screen Not Detected (Not Detect) Urine Fentanyl Screen Not Detected (Not Detect) Ur Barbiturates Screen Not Detected (Not Detect) Ur Phencyclidine Scrn Not Detected (Not Detect) Ur Amphetamines Screen Not Detected (Not Detect) U Benzodiazepines Scrn Not Detected (Not Detect) Urine Cocaine Screen Not Detected (Not Detect) U Marijuana (THC) Screen Not Detected (Not Detect) Acetone, Qual (Negative) COVID-19 (ANDERS) (Negative) COVID-19 Clin Com Critical Care Time Critical Care Time Critical Care Time: Yes Total Critical Care Time: 60 Attestation: I have personally provided critical care time. Time includes review of lab data, radiology results, discussion with consultants, and monitoring for potential de compensation. Intervention performed as documented. Discharge Plan Discharge Clinical Impression: Cardiac arrest Patient Disposition: Admitted As Inpatient
[2022-02-11 00:52] LABS: Glucose, Whole Blood 222 mg/dL (60-115)
--- NOTE | 2022-02-11 00:57 | PC.NURSE ---
Patient came by ambulance to hospital after cardiac arrest at [facility]. Patient received 3 epi's in field, intubation and EMS had achieved ROSC while in field. Initially patient's bp's were hypotensive. Patient received 1 litre of NS and Dobutamine drip started at 5 mcg/kg/min. Blood pressure vinay to 137/58, then 143systolic and then was 219/109. At this point dobuatmine drip was stopped. Initial core temp was 93.7 and patient placed on bear hugger. Patient had two IV's place with 20 guage in each of his hands. Dr. Mckeon placed a central line. Respiratory put patient on ventilator. Patient has not been fighting the vent at all. Patient's current Bp is 153/98. Temperature sensing catheter placed and patient put out over 1000 ml within the 1st hour. Patient's current core temp is 95.2 but patient remains on bear hugger at this time
[2022-02-11 01:23] LABS: Reflex Lactate? Lactic Acid Added
[2022-02-11] MEDS: Midazolam HCl/PF 2 MG/2 ML VIAL IVPUSH (01:53)
[2022-02-11] MEDS: Midazolam HCl/NS 50 MG/50 ML PLAST..BAG IVCONT (02:00)
[2022-02-11] MEDS: Piperacillin Sodium/Tazobactam 3.375 GM in 0.9 % Sodium Chloride 50 ML IV (02:07)
--- NOTE | 2022-02-11 02:10 | PC.NURSE ---
Patient's Wheeler bag emptied and he put out another 1000 ml. Versed drip running at 2ml/hr and pipercillin running.
[2022-02-11 02:23] LABS: TSH reflex Free T4 8.45 uIU/mL (0.32-4.0)
[2022-02-11 02:26] LABS: ~Lactic Acid-LAB USE ONLY 3.7 mmol/L (0.5-2.0)
--- NOTE | 2022-02-11 02:33 | P.HPCC_ITS ---
History of Present Illness Date of Service: 02/11/22 Attending physician on admission: Js Hathaway Chief Complaint: Cardiac arrest 56-year-old male with a past medical history hypertension, hyperlipidemia, diabetes, COPD, congestive heart failure, alcohol syndrome, cognitive delay, schizoaffective disorder, paranoid , history of dysphagia/recurrent aspiration pneumonias who presented to the hospital from custodial as cardiac arrest. According to custodial staff, patient collapsed without a clear reason, he was unconscious and pulseless, CPR initiated by custodial staff. Airway was obtained in the field,? with a 7.5 ET tube,? and the patient achieved ROSC after 3 Epinephrine.? In the ED patient was noted to be hypothermic to 93,? blood pressure 91/47, tachy to 120s.? ? Laboratory data was significant for,? VBGs:? 7.08/77/73/23.? Serum bicarb 20, BUN 19, creatinine 1.18, lactic acid 9.9.? Imaging:? Chest Xray:? does demonstrate some pulmonary congestion as well as some evidence of aspiration Cervical spine CT: A 3 cm long ovoid heterogeneous foreign body in the hypo pharynx, most likely corresponding to a food bolus.? Head CT: ? no acute bleed ED course:? patient received 1 L of fluids and? Zosyn. Central line placed, and was started on dobutamine drip, but quickly discontinued.? ?Patient is being admitted to the ICU for management? post? pulmonary/cardiac ar rest likely from aspiration Review of Systems Review of Systems: unable to do, patient is intubated PMFSH Past Medical History Medical History SANDIP (acute kidney injury) Aspiration pneumonia COPD (chronic obstructive pulmonary disease) Depression Diabetes Dysphagia Esophagitis with gastritis alcohol syndrome HTN (hypertension) Hyperkalemia Hyperkalemia Hyperlipidemia Internal hemorrhoids Internal hemorrhoids Iron deficiency anemia Iron deficiency anemia Obstructive sleep apnea Paranoia Schizo-affective schizophrenia Surgical History Surgical History H/O endoscopy Social History Social History Household Members: Other Household Members Other:: custodial Housing: Other Housing Other:: custodial Do you presently have visiting nurse or other home services: No Unable to assess alcohol history related to: Unknown Alcohol intake: never Patient Tobacco Use Status: Former Tobacco user Tobacco use type: Cigarette Cigarette Packs Per Day: 1 Cigarettes Per Day: 20.0 e-Cigarette/Vaping Use: Currently Using Second Hand Smoke Exposure: No Substance Use Type: Crack/Cocaine Advance Directives: No Advance Directives Information Provided: No service: No Current occupational status: disabled Meds Allergies Allergy/AdvReac Type Severity Reaction Status Date / Time prednisone Allergy Unknown Verified 02/10/22 23:21 Active Medications: Current Medications Heparin Sodium (Porcine) (Heparin Sodium,Porcine 5,000 Unit/Ml Vial) 5,000 unit SUBCUT TID ELISSA Dobutamine HCl/Dextrose (Dobutrex) 1,000 mg in 250 mls @ 0 mls/hr IVCONT .Q0M ELISSA; Protocol Last Titration: 02/11/22 00:12 Dose: 0 mcg/kg/min, 0 mls/hr Documented by: Midazolam HCl (Versed) 50 mg in 50 mls @ 2 mls/hr IVCONT .Q24H ELISSA Last Admin: 02/11/22 02:00 Dose: 2 mg/hr, 2 mls/hr Documented by: Home Medications Medication Instructions Recorded Confirmed Last Taken Type benztropine 1 mg tablet 1 tab PO BID 10/07/20 09/28/21 09/28/21 History budesonide 0.5 mg/2 mL suspension 1 vial INHALATION BID 10/07/20 09/28/21 09/28/21 History for nebulization clozapine 100 mg tablet 3 tab PO BEDTIME 10/07/20 09/28/21 09/27/21 History perphenazine 8 mg tablet 8 mg PO BEDTIME@199910/07/20 09/28/21 09/27/21 History simvastatin 40 mg tablet 40 mg PO BEDTIME 10/07/20 09/28/21 09/27/21 History albuterol sulfate 90 mcg/actuation 2 inh INHALATION QID PRN 04/25/21 09/28/21 09/28/21 History aerosol inhaler (ProAir HFA) ferrous sulfate 324 mg (65 mg 324 mg PO BID 04/25/21 09/28/21 09/28/21 History iron) tablet,delayed release insulin glargine 100 unit/mL (3 40 unit SUBCUT DAILY 04/25/21 09/28/21 09/28/21 History mL) subcutaneous pen (Lantus Solostar U-100 Insulin) ipratropium 0.5 mg-albuterol 3 mg 3 ml INHALATION BID PRN 04/25/21 09/28/21 09/28/21 History (2.5 mg base)/3 mL nebulization soln paliperidone palmitate 156 mg/mL 156 mg IM Q28D 04/25/21 09/28/21 09/15/21 History intramuscular syringe (Invega Sustenna) paroxetine HCl 40 mg tablet 40 mg PO DAILY 04/25/21 09/28/21 09/28/21 History perphenazine 16 mg tablet 16 mg PO BID@0800,199904/25/21 09/28/21 09/28/21 History metformin 1,000 mg tablet 1,000 mg PO BIDWM 06/17/21 09/28/21 09/28/21 History triamcinolone acetonide 0.1 % 1 appl TOPICAL BID 06/17/21 09/28/21 09/28/21 History topical cream ammonium lactate 12 % lotion 1 appl TOPICAL BID 09/28/21 09/28/21 09/28/21 History aspirin 81 mg tablet,delayed 1 tab PO DAILY 09/28/21 09/28/21 09/28/21 History release Physical Exam Vital Signs: Vital Signs: Last Vital Signs Temp 96.3 F L 02/11/22 01:46 Pulse 97 02/11/22 02:00 Resp 18 02/11/22 02:00 BP 144/97 H 02/11/22 02:00 Pulse Ox 100 02/11/22 02:00 BMI result Body Mass Index 28.0 ?General:Patient intubated. ?HEENT:? Head is normocephalic, atraumatic, pupils fixed, 3mm. Buccal mucosa is dry, Neck is supple without lymphadenopathy. ?Cardiac:? Sinus Tach. Clear S1-S2, no murmurs rubs or gallops. ?Pulmonary:? Clear to auscultation, no wheezes, rales or rhonchi. ?Abdomen:? Soft, nontender, no rebound or guarding.??+ bowel sounds ?Musculoskeletal:?Resting lip tremors (chronic). Moving all 4 extremities randomly. ?Skin:?Scaterred bruises., no lesions, edema, or cyanosis.? No ulcers. ?Neurologic:? Chronic tremor, As above, cranial nerves 2-12 are grossly intact.? No focal deficits noted. Vascular:? 2+ pulses upper and lower extremities distally.? Results Labs CBC and Chem 7: 02/10/22 23:19 02/10/22 23:19 Labs: Laboratory Results - last 24 hr 02/10/22 02/10/22 02/10/22 23:14 23:19 23:19 MCV 89.2 MCH 26.4 L MCHC 29.6 L RDW 15.7 Plt Count 281 MPV 9.9 Immature Gran % (Auto) 4.5 H Neut % (Auto) 52.8 Lymph % (Auto) 33.2 [place] % (Auto) 8.9 Eos % (Auto) 0.3 Baso % (Auto) 0.3 Lymph # (Auto) 3.0 [place] # (Auto) 0.8 Eos # (Auto) 0.0 Baso # (Auto) 0.0 Abs Immat Gran (auto) 0.41 H Absolute Neuts (auto) 4.8 Absolute Nucleated RBC 0.020 H Nucleated RBC % (auto) 0.2 PT 13.0 INR 1.1 VBG pH VBG pCO2 VBG pO2 VBG HCO3 VBG O2 Saturation VBG Base Excess Anion Gap Estim Creat Clear Calc Estimated GFR POC Glucose 259 H Random Glucose Lactic Acid Lactic Acid F/U @ 2Hr Calcium Magnesium Total Bilirubin AST ALT Alkaline Phosphatase B-Natriuretic Peptide Total Protein Albumin TSH Urine Color Urine Appearance Urine pH Ur Specific [place] Urine Protein Urine Glucose (UA) Urine Ketones Urine Blood Urine Nitrite Ur Leukocyte Esterase Urine Opiates Screen Urine Fentanyl Screen Ur Barbiturates Screen Ur Phencyclidine Scrn Ur Amphetamines Screen U Benzodiazepines Scrn Urine Cocaine Screen U Marijuana (THC) Screen Acetone, Qual COVID-19 (ANDERS) COVID-19 Clin Com 02/10/22 02/10/22 02/10/22 23:19 23:19 23:19 MCV MCH MCHC RDW Plt Count MPV Immature Gran % (Auto) Neut % (Auto) Lymph % (Auto) [place] % (Auto) Eos % (Auto) Baso % (Auto) Lymph # (Auto) [place] # (Auto) Eos # (Auto) Baso # (Auto) Abs Immat Gran (auto) Absolute Neuts (auto) Absolute Nucleated RBC Nucleated RBC % (auto) PT INR VBG pH VBG pCO2 VBG pO2 VBG HCO3 VBG O2 Saturation VBG Base Excess Anion Gap 21 H Estim Creat Clear Calc 75.4 Estimated GFR > 60 POC Glucose Random Glucose 284 H D Lactic Acid Lactic Acid F/U @ 2Hr Calcium 8.1 L D Magnesium 1.9 Total Bilirubin 0.2 AST 36 D ALT 33 Alkaline Phosphatase 96 B-Natriuretic Peptide 16 Total Protein 5.4 L Albumin 3.2 L TSH 8.45 H Urine Color Urine Appearance Urine pH Ur Specific [place] Urine Protein Urine Glucose (UA) Urine Ketones Urine Blood Urine Nitrite Ur Leukocyte Esterase Urine Opiates Screen Urine Fentanyl Screen Ur Barbiturates Screen Ur Phencyclidine Scrn Ur Amphetamines Screen U Benzodiazepines Scrn Urine Cocaine Screen U Marijuana (THC) Screen Acetone, Qual COVID-19 (ANDERS) Negative [employer] of [place]) See Note 02/10/22 02/10/22 02/10/22 23:19 23:19 23:23 MCV MCH MCHC RDW Plt Count MPV Immature Gran % (Auto) Neut % (Auto) Lymph % (Auto) [place] % (Auto) Eos % (Auto) Baso % (Auto) Lymph # (Auto) [place] # (Auto) Eos # (Auto) Baso # (Auto) Abs Immat Gran (auto) Absolute Neuts (auto) Absolute Nucleated RBC Nucleated RBC % (auto) PT INR VBG pH 7.08 L* VBG pCO2 77 VBG pO2 73 VBG HCO3 23 VBG O2 Saturation 86.0 VBG Base Excess -8.1 Anion Gap Estim Creat Clear Calc Estimated GFR POC Glucose Random Glucose Lactic Acid 9.9 H* Lactic Acid F/U @ 2Hr Calcium Magnesium Total Bilirubin AST ALT Alkaline Phosphatase B-Natriuretic Peptide Total Protein Albumin TSH Urine Color Urine Appearance Urine pH Ur Specific [place] Urine Protein Urine Glucose (UA) Urine Ketones Urine Blood Urine Nitrite Ur Leukocyte Esterase Urine Opiates Screen Urine Fentanyl Screen Ur Barbiturates Screen Ur Phencyclidine Scrn Ur Amphetamines Screen U Benzodiazepines Scrn Urine Cocaine Screen U Marijuana (THC) Screen Acetone, Qual Negative COVID-19 (ANDERS) COVID-[employer] 02/10/22 02/10/22 02/11/22 23:57 23:57 00:43 MCV MCH MCHC RDW Plt Count MPV Immature Gran % (Auto) Neut % (Auto) Lymph % (Auto) [place] % (Auto) Eos % (Auto) Baso % (Auto) Lymph # (Auto) [place] # (Auto) Eos # (Auto) Baso # (Auto) Abs Immat Gran (auto) Absolute Neuts (auto) Absolute Nucleated RBC Nucleated RBC % (auto) PT INR VBG pH VBG pCO2 VBG pO2 VBG HCO3 VBG O2 Saturation VBG Base Excess Anion Gap Estim Creat Clear Calc Estimated GFR POC Glucose 222 H Random Glucose Lactic Acid Lactic Acid F/U @ 2Hr Calcium Magnesium Total Bilirubin AST ALT Alkaline Phosphatase B-Natriuretic Peptide Total Protein Albumin TSH Urine Color YELLOW Urine Appearance HAZY Urine pH 6.0 Ur Specific [place] 1.010 Urine Protein TRACE Urine Glucose (UA) 500 H Urine Ketones NEG Urine Blood NEG Urine Nitrite NEG Ur Leukocyte Esterase NEG Urine Opiates Screen Not Detected Urine Fentanyl Screen Not Detected Ur Barbiturates Screen Not Detected Ur Phencyclidine Scrn Not Detected Ur Amphetamines Screen Not Detected U Benzodiazepines Scrn Not Detected Urine Cocaine Screen Not Detected U Marijuana (THC) Screen Not Detected Acetone, Qual COVID-19 (ANDERS) COVID-[employer] 02/11/22 01:45 MCV MCH MCHC RDW Plt Count MPV Immature Gran % (Auto) Neut % (Auto) Lymph % (Auto) [place] % (Auto) Eos % (Auto) Baso % (Auto) Lymph # (Auto) [place] # (Auto) Eos # (Auto) Baso # (Auto) Abs Immat Gran (auto) Absolute Neuts (auto) Absolute Nucleated RBC Nucleated RBC % (auto) PT INR VBG pH VBG pCO2 VBG pO2 VBG HCO3 VBG O2 Saturation VBG Base Excess Anion Gap Estim Creat Clear Calc Estimated GFR POC Glucose Random Glucose Lactic Acid Lactic Acid F/U @ 2Hr 3.7 H* Calcium Magnesium Total Bilirubin AST ALT Alkaline Phosphatase B-Natriuretic Peptide Total Protein Albumin TSH Urine Color Urine Appearance Urine pH Ur Specific [place] Urine Protein Urine Glucose (UA) Urine Ketones Urine Blood Urine Nitrite Ur Leukocyte Esterase Urine Opiates Screen Urine Fentanyl Screen Ur Barbiturates Screen Ur Phencyclidine Scrn Ur Amphetamines Screen U Benzodiazepines Scrn Urine Cocaine Screen U Marijuana (THC) Screen Acetone, Qual COVID-19 (ANDERS) COVID-19 [email or web address] Com Imaging Radiologist's Impressions: Impressions Chest X-Ray 02/11/22 00:05 IMPRESSION: 1. ET tube terminates at the level of the javier. Recommend retraction by 3 cm. 2. Right IJ central venous catheter terminates over the cavoatrial junction. 3. Low lung volumes with multifocal atelectasis and mild interstitial pulmonary edema. Patchy opacities in the right midlung may correspond to areas of early alveolar edema. This critical result was discussed by telephone with Dr. Rudolph on 02/11/2022 at 12:[address] 02/11/22 01:40 IMPRESSION: 1. No acute intracranial pathology. 2. No acute fracture or malalignment in the cervical spine. [id number] multilevel degenerative disc disease. 3. A 3 cm long ovoid heterogeneous foreign body in the hypopharynx, most likely corresponding to a food bolus. This contributes to significant airway narrowing and displacement of the ET tube to the left. A similar focus is present in the proximal esophagus. This critical result was discussed by telephone with Dr. Mckeon on 02/11/2022 at 2:[address] 02/11/22 01:40 IMPRESSION: 1. No acute intracranial pathology. 2. No acute fracture or malalignment in the cervical spine. [id number] multilevel degenerative disc disease. 3. A 3 cm long ovoid heterogeneous foreign body in the hypopharynx, most likely corresponding to a food bolus. This contributes to significant airway narrowing and displacement of the ET tube to the left. A similar focus is present in the proximal esophagus. This critical result was discussed by telephone with Dr. Mckeon on 02/11/2022 at 2:14 AM. Assessment and Plan (1) Cardiac arrest: Status: Acute (2) Aspiration into airway: Status: Acute (3) Acute respiratory failure: Status: Resolved (4) Dysphagia: Status: Acute (5) SANDIP (acute kidney injury): Status: Acute (6) Elevated lactic acid level: Status: Acute (7) Hypothermia: Status: Acute Plan ?56-year-old male with significant? history of dysphagia/recurrent aspiration pneumonias? now status? post cardiopulmonary arrest likely from aspiration Neuro:?? ?No acute issues?? Cardiac:?? ?Cardiopulmonary arrest:? patient? had witnessed cardiac arrest in the custodial,? in imaging there is a 3 cm long ovoid heterogeneous foreign body in the hypopharynx,? likely corresponding to a food bolus,? with sudden loss of pulse? this is likely due to aspiration event.? Patient was started on antibiotics. Will plan for bronch in the morning ?Elevated lactic:? patient has elevated lactic? this is likely from? cardiac arrest/ CPR.? white count is not elevated,? and there was no evidence of acute infection at this time. Hypothermia: ? This is likely post cardiac arrest. Initial temp 93. Cont jerome hugger until temperature improves? Pulmonary: ?Acute respiratory failure:? aspiration was likely the ause of cardiac pulmonary arrest.? Will wean patient from bed as tolerated.? Renal:? SANDIP-? most likely related to hypoperfusion, nonoliguric. ? Received fluids in the ED.? will not continue fluids as patient has underlying history of heart failure.? Continue to check renal induces and urine output GI:?? ?No acute issues Endo:?No acute issues ID: ? ? no acute issues Heme/Onc:? No acute issues. Psych:? No acute issues. Miscellaneous:? No acute issues. Prophylaxis: subcu heparin,? protonix? Diet: ? NPO?? Critical care time: 90x minutes of critical care time? CODE: FULL Critical Care Time Critical Care Time (minutes): 90
[2022-02-11 02:57] LABS: Free T4 (Free Thyroxine) 0.77 ng/dL (0.71-1.85)
[2022-02-11] MEDS: propofoL 1,000 MG/100 ML VIAL 15.08 MG IVCONT (03:19)
[2022-02-11 03:49] LABS: Reflex Lactate? 2 Y
[2022-02-11 05:40] LABS: VBG Base Excess 6.2 mmol/L; VBG HCO3 30 mmol/L (22-26); VBG pCO2 39 mmHg; VBG pH 7.48 (7.32-7.43); VBG pO2 49 mmHg
--- NOTE | 2022-02-11 05:45 | PC.NURSE ---
Initial contact: Pt transferred from the ER at approximately 0300. Pt is intubated and vented with a #7.5, 26 cm @ lip, on AC 18/400/560%, synchronous. LS rhonchi throughout. Propofol gtt running per emar, no cough/gag. Pupils are constricted, 1-2mm, and non-reactive to light. Pt does exhibit facial tremors of the jaw, no facial droop. Pt has generalized +1 edema, NSR/ST on monitor, HR 90-100s. OGT placed in ICU with ~100ml orange drainage to LWS. Abd sounds hypoactive. Wheeler in place with clear yellow urine, output ~100 ml/hr. Skin intact, initially cyanotic but improving.
[2022-02-11 06:04] LABS: MANUAL DIFF FLAG NO
[2022-02-11 06:08] LABS: Basophils Percent Auto 0.2 % (0-2); Hematocrit 39.8 % (42.0-52.0); Hemoglobin 12.2 g/dl (14.0-18.0); Imm Gran Abs Auto 0.08 X10*3/uL (0.00-0.03); Imm Gran Pct Auto 0.8 % (0.0-0.4); Lymphocytes Absolute Auto 0.5 X10*3/uL (1.2-4.9); Lymphocytes Percent Auto 4.5 % (20-40); Mean Corpuscular HGB Conc 30.7 g/dl (31.0-36.0); Mean Corpuscular Hemoglobin 25.6 pg (27.0-33.0); Mean Corpuscular Volume 83.4 fL (80.0-98.0); Mean Platelet Volume 10.2 fL (9.4-12.4); Monocytes Absolute Auto 0.8 X10*3/uL (0.1-1.2); Monocytes Percent Auto 7.5 % (2-11); Neutrophils Absolute Auto 8.9 x10*3/uL (2.0-8.3); Platelet Count 251 X10*3/uL (160-400); Red Blood Count 4.77 X10*6/uL (4.60-5.80); Red Cell Distribution Width 15.5 % (11.0-16.0); White Blood Count 10.2 X10*3/uL (4.8-10.8)
[2022-02-11] MEDS: Pantoprazole Sodium 40 MG/10 ML VIAL IVPUSH (06:21)
[2022-02-11] MEDS: Acetaminophen Oral Liquid 650 MG/20.3 ML SOLUTION OG-TUBE (06:21)
[2022-02-11 06:25] LABS: Alanine Aminotransferase 50 U/L (0-40); Albumin Level 3.6 g/dL (3.5-5.0); Alkaline Phosphatase 112 U/L (39-117); Anion Gap 17 (12-20); Aspartate Amino Transferase 51 U/L (5-37); Bilirubin Total 0.5 mg/dL (0.0-1.0); Blood Urea Nitrogen 23 mg/dL (9-16); Calcium 8.7 mg/dL (8.4-10.2); Carbon Dioxide 27 mmol/L (22-29); Chloride 101 mmol/L (96-108); Creatinine Clr Calc Pharmacy 83.3; Estimated Glomerular Filt Rate > 60; Glucose Random 196 mg/dL (60-115); Magnesium 1.5 mg/dL (1.6-2.6); Phosphorus 1.8 mg/dL (2.7-4.5); Potassium 4.1 mmol/L (3.3-5.1); Sodium 141 mmol/L (135-145); Total Protein 6.1 g/dL (6.5-8.0)
[2022-02-11 08:04] LABS: Venous Blood Gas Refer to POC result
[2022-02-11] MEDS: Potassium Phosphate/NS 15 MMOL/250 ML PLAST..BAG 62.5 MMOL IV (08:04)
[2022-02-11] MEDS: Magnesium Sulfate/H2O 2 GM/50 ML PIGGYBACK IV (08:04)
[2022-02-11] MEDS: Piperacillin Sodium/Tazobactam 4.5 GM in 0.9 % Sodium Chloride 100 ML IV ×3 (08:04→19:59)
[2022-02-11] MEDS: Chlorhexidine Gluc Oral Rinse 15 ML MOUTHWASH BUCCAL ×3 (08:04→20:31)
[2022-02-11] MEDS: Heparin Sodium,Porcine 5,000 UNIT/ML VIAL 5000 UNIT SUBCUT ×3 (08:05→20:31)
[2022-02-11] MEDS: propofoL 1,000 MG/100 ML VIAL 10.06 MG IVCONT ×2 (08:47→16:24)
--- NOTE | 2022-02-11 11:53 | PHA.MEDREC ---
Pharmacy Consult ? Medication Reconciliation Pharmacy has completed the medication reconciliation. Spoke to jail to get med list
--- NOTE | 2022-02-11 12:37 | MHC.CM.PN ---
Pt in ICU on ventilatory support following cardiac resuscitation presumably from choking on food. Call placed to pt's nursing home: spoke with staff person, Hang who states pt has no family or contacts listed other than the client program manager, Med. Pt also does not have a HCP, guardianship or other advanced directives on file. Hang unsure who pt's PCP is and couldn't verify pt's COVID vax status - he suggested CM call Med on Sunday, 02/13 for additional information. Hang states pt is ambulatory, verbal, A&O x3 and able to make his own decisions. IMM discussed with Hang: copy at bedside: D/C is uncertain at this time: will depend on pt's recovery and functional abilities. Pt has barriers to placement should he need it including no HCP or guardianship and unknown vax status. CM to follow
--- NOTE | 2022-02-11 18:39 | PC.NURSE ---
MD to bedside with glydoscope and hot found in pt's throat, hot dog removed by
--- NOTE | 2022-02-11 18:43 | PM.EVENT ---
Event Note Date of Service: 02/11/22 Event Note: GI Consult-Full note dictated-Hx via ICU staff and EMR. Imp: 56 yo male admitted with cardiopulmonary arrest due to probable aspiration. He has also been found to have retained food(hotdog) in the hypopharynx that was removed earlier today at the bedside by Dr. Hathaway. Imaging studies today suggest a fluid-filled dilated esophagus raising a concern of more food in the esophagus and/or a possible distal stricture. He did have an EGD in 04/[address] Sung revealing only some erosive esophagitis, but no stricture. Rec: I would agree with the need for an EGD to R/O retained food and/or other esophageal pathology. This would best be done prior to extubation. Will plan to do this on 02/13/2022. I did discuss this with Dr. Hathaway and he will plan to keep him intubated until then. We will need consent for the procedure from the patient's HCP/Guardian. Thanks
--- NOTE | 2022-02-11 19:36 | MHC.SHP ---
Pre-Procedural Eval Section A Date of Service: 02/13/22 The patient is an INPATIENT: Yes The History & Physical has been completed within 30 days and I have reviewed it.: Yes Section B Chief Complaint: post cardiac arrest Allergies: Allergies Allergy/AdvReac Type Severity Reaction Status Date / Time prednisone Allergy Unknown Verified 02/10/22 23:21 Plan I have reviewed the history and physical and performed a pertinent physical examination on my patient. No changes have occurred unless specified.
[2022-02-12] VITALS (31 sets, daily range): BP systolic 128–178; BP diastolic 52–98; PULSE 86–121; RESP 14–31; TEMP 34.9–38.5; O2SAT 93–100; BMI 26.2
[2022-02-12] MEDS: propofoL 1,000 MG/100 ML VIAL 10.06 MG IVCONT ×3 (00:35→18:18)
--- NOTE | 2022-02-12 02:17 | PC.NURSE ---
CARE ASSUMED 23:15..REMAINS TUBED/VENTED..PROPOFOL 20 MCG/KG/MIN..EYES OPEN BUT NO FOCUS OR TRACKING..WEAK GAG/COUGH REFLEXES..EXTREMETIES FLACCID..REMAINS WITH VENT SYNCHRONY..NSR NO ECTOPY..OG-TUBE WITH BILIOUS DRAINAGE..SMITH REMAINS WITH MARGINAL OUTPUT..ICU SUPPLY CHAIN MANAGER AWARE
[2022-02-12] MEDS: Piperacillin Sodium/Tazobactam 4.5 GM in 0.9 % Sodium Chloride 100 ML IV ×4 (02:54→20:45)
--- NOTE | 2022-02-12 03:26 | CONS_ITS ---
DATE OF SERVICE: 02/11/2022 REFERRING PHYSICIAN: Js Hathaway MD REASON FOR CONSULTATION: Question of esophageal obstruction and foreign body. HISTORY OF PRESENT ILLNESS: This has been obtained entirely from the ICU staff and medical record. The patient is a 56-year-old male who lives in a jail in relation to cognitive dysfunction due to alcohol syndrome and behavioral health disorder. He was brought in here due to cardiopulmonary arrest and was intubated at his jail. Imaging studies revealed a suspicion of a foreign body in the hypopharynx area and indeed a piece of a hot dog was removed today at the bedside by Dr. Hathaway. Of note, the patient did have an upper endoscopy in April [address] Sung describing some erosive esophagitis but no sign of any esophageal stricture nor mass. Followup imaging after the hotdog was removed today, still describes a fluid filled and somewhat dilated esophagus. There was no further definitive filling defects noted. He has remained intubated in the ICU. CURRENT MEDICATIONS: Include acetaminophen, subcu heparin, IV pantoprazole, IV Zosyn, and propofol. PAST MEDICAL HISTORY: Erosive esophagitis as above. He also had a colonoscopy last year with Dr. Sung that was negative other than hemorrhoids. Other medical issues include hypertension, hyperlipidemia, diabetes, congestive heart failure, and COPD. He has schizoaffective disorder and paranoia. History of aspiration pneumonia in relation to underlying dysphagia. SOCIAL HISTORY: He lives in a jail. There is no tobacco nor alcohol history. REVIEW OF SYSTEMS: Not obtainable. PHYSICAL EXAMINATION: GENERAL: The patient is an intubated male in no distress. SKIN: Warm and dry. Nonjaundiced. NECK: Without lymphadenopathy nor crepitus. CHEST WALL: Without crepitus. ABDOMEN: Soft, nondistended, and nontender. LABORATORY DATA: White blood cell count 10.2, hemoglobin 12.2, and platelets 251,000. PT 13.0 with INR 1.1. Normal electrolytes. BUN 23 and creatinine 0.98. Total bilirubin 0.5, AST 51, ALT 50, and alkaline phosphatase 112. CT scan of his neck as above. IMPRESSION: Given the patient's clinical history, I would agree with the concern of either retained food in the esophagus or possible esophageal stricture. Although given the endoscopy that was negative for that, less than 1 year ago and his home medications including a PPI twice a day, the stricture would probably be unlikely. Nonetheless, I would recommend upper endoscopy prior to extubation, so as to be sure there is no food that needs to be removed or stricture that needs to be dilated. This would obviously be best done prior to extubation. I did discuss this with Dr. Hathaway, and he will plan to keep him intubated until Sunday such that the endoscopy can be performed. Consent will need to be obtained from a healthcare proxy and/or legal guardian once that information can be ascertained. Thank you for this consultation. MD BERNABE Rodriguez/OSMEL / [id number] [email or web address]
[2022-02-12 05:31] LABS: VBG Base Excess 6.3 mmol/L; VBG HCO3 29 mmol/L (22-26); VBG pCO2 38 mmHg; VBG pH 7.49 (7.32-7.43); VBG pO2 65 mmHg
[2022-02-12] MEDS: Pantoprazole Sodium 40 MG/10 ML VIAL IVPUSH (05:31)
[2022-02-12 05:42] LABS: MANUAL DIFF FLAG NO
[2022-02-12 05:45] LABS: Basophils Percent Auto 0.1 % (0-2); Eosinophils Percent Auto 0.1 % (0-4); Hematocrit 37.1 % (42.0-52.0); Hemoglobin 11.6 g/dl (14.0-18.0); Imm Gran Abs Auto 0.05 X10*3/uL (0.00-0.03); Imm Gran Pct Auto 0.6 % (0.0-0.4); Lymphocytes Absolute Auto 0.7 X10*3/uL (1.2-4.9); Lymphocytes Percent Auto 8.6 % (20-40); Mean Corpuscular HGB Conc 31.3 g/dl (31.0-36.0); Mean Corpuscular Volume 83.2 fL (80.0-98.0); Mean Platelet Volume 9.8 fL (9.4-12.4); Monocytes Absolute Auto 0.8 X10*3/uL (0.1-1.2); Monocytes Percent Auto 9.2 % (2-11); Neutrophils Absolute Auto 6.9 x10*3/uL (2.0-8.3); Neutrophils Percent Auto 81.4 % (45-73); Platelet Count 238 X10*3/uL (160-400); Red Blood Count 4.46 X10*6/uL (4.60-5.80); White Blood Count 8.5 X10*3/uL (4.8-10.8)
[2022-02-12 06:04] LABS: Albumin Level 3.4 g/dL (3.5-5.0); Anion Gap 12 (12-20); Blood Urea Nitrogen 24 mg/dL (9-16); Calcium 8.6 mg/dL (8.4-10.2); Carbon Dioxide 29 mmol/L (22-29); Chloride 102 mmol/L (96-108); Creatinine Clr Calc Pharmacy 90.7; Estimated Glomerular Filt Rate > 60; Glucose Random 223 mg/dL (60-115); Magnesium 1.9 mg/dL (1.6-2.6); Phosphorus 2.9 mg/dL (2.7-4.5); Potassium 3.7 mmol/L (3.3-5.1); Sodium 139 mmol/L (135-145)
[2022-02-12 06:43] LABS: Venous Blood Gas Refer to POC result
[2022-02-12] MEDS: Chlorhexidine Gluc Oral Rinse 15 ML MOUTHWASH BUCCAL ×3 (08:29→20:51)
[2022-02-12] MEDS: Heparin Sodium,Porcine 5,000 UNIT/ML VIAL 5000 UNIT SUBCUT ×2 (08:29→20:49)
[2022-02-12] MEDS: Albumin Human 25 % 100 ML IV ×3 (10:43→21:16)
--- NOTE | 2022-02-12 10:58 | P.PNCC_ITS ---
Subjective Subjective Date of Service: 02/12/22 Interval History: ICU day 2 for cardiac arrest and pulmonary aspiration. 56-year-old gentleman with underlying fatal Vasquez syndrome, schizoaffective schizophrenia MARA, dysphagia, diabetes, COPD admitted on 02/11/2022 after And out of hospital cardiac arrest secondary to aspiration. Intubated in the failed. ROSC after 3 rounds of epinephrine. On 02/11/2022 hypopharynx inspected with glide scope and appears of hot dog sausage removed from upper esophagus. CT chest with evidence of retained food in his esophagus. Evaluated by GI and planned for an EGD in a.m.. No events overnight. Remains on ventilatory support until EGD. Critical Care Time (minutes): 45 Physical Exam Vital Signs: Vital Signs: Last Vital Signs Temp 100.6 F H 02/12/22 09:00 Pulse 118 H 02/12/22 10:00 Resp 31 H 02/12/22 10:00 BP 141/52 H 02/12/22 10:00 Pulse Ox 95 02/12/22 10:00 BMI result Body Mass Index 26.2 Const: General: no acute distress and other ( Sedated on the vent, arousable with sedation vacation) Eyes: Sclerae: sclerae normal EOM: EOMs intact bilaterally Neck: Neck: Yes no lymphadenopathy, Yes trachea midline and Yes supple Resp: Effort & Inspection: normal respiratory effort and no respiratory distress Auscultation: clear to auscultation bilaterally Cardio: Rate: tachycardic Rhythm: regular rhythm Heart sounds: no gallops, no murmurs and no rubs GI: Palpation (GI): Soft to palpation and Other GI palpation findings present ( Nontender) Auscultation: normal bowel sounds Extrem: General: Yes no pedal edema, No clubbing and No cyanosis Objective Data Labs CBC & Chem 7: 02/12/22 05:20 02/12/22 05:20 Labs: Laboratory Results - last 24 hr 02/12/22 02/12/22 02/12/22 05:20 05:20 05:23 WBC 8.5 RBC 4.46 L Hgb 11.6 L Hct 37.1 L MCV 83.2 MCH 26.0 L MCHC 31.3 RDW 16.0 Plt Count 238 MPV 9.8 Immature Gran % (Auto) 0.6 H Neut % (Auto) 81.4 H Lymph % (Auto) 8.6 L [place] % (Auto) 9.2 Eos % (Auto) 0.1 Baso % (Auto) 0.1 Lymph # (Auto) 0.7 L [place] # (Auto) 0.8 Eos # (Auto) 0.0 Baso # (Auto) 0.0 Abs Immat Gran (auto) 0.05 H Absolute Neuts (auto) 6.9 Absolute Nucleated RBC 0.000 Nucleated RBC % (auto) 0.0 VBG pH 7.49 H VBG pCO2 38 VBG pO2 65 VBG HCO3 29 H VBG O2 Saturation 89.0 VBG Base Excess 6.3 Sodium 139 Potassium 3.7 Chloride 102 Carbon Dioxide 29 Anion Gap 12 BUN 24 H Creatinine 0.90 Estim Creat Clear Calc 90.7 Estimated GFR > 60 Random Glucose 223 H Calcium 8.6 Phosphorus 2.9 Magnesium 1.9 Albumin 3.4 L Progress Note: A&P Assessment and plan (1) SANDIP (acute kidney injury): Status: Acute (2) Aspiration into airway: Status: Acute (3) Cardiac arrest: Status: Acute (4) Dysphagia: Status: Acute (5) SANDIP (acute kidney injury): Status: Acute (6) COPD (chronic obstructive pulmonary disease): Status: Acute (7) Diabetes: Status: Acute (8) Schizo-affective schizophrenia: Status: Acute Plan Assessment: 56-year-old gentleman with underlying fat alcohol syndrome schizophrenia, detention resident, also with dysphagia, diabetes, and COPD admitted after a cardiac arrest secondary to pulmonary aspiration Plan: Neuro: No acute issues. Cardiac: cardiac arrest secondary to pulmonary aspirations status post returned spontaneous circulation after 3 rounds of CPR. 2D echocardiogram is pending. Underlying history of congestive heart failure. Pulmonary: Intubated during CPR. Continue on ventilatory support until EGD. 1.5 x3/4 piece of sausage removed from upper esophagus / hypopharynx. Underlying history of COPD. Renal: No acute issues. Endo: No acute issues. GI: Retain foot in his overdose. Gastroenterology service care evaluation appreciated. Planned for EGD in a.m.. Will require swallow evaluation and diet modification. ID: No acute issues Heme/Onc: No acute issues. Psych: No acute issues. Underlying history of schizoaffective schizophrenia. Miscellaneous: No acute issues. Prophylaxis: heparin, ppi Diet: nothing by mouth Critical care time spent: 45 minutes Quality Stroke Does the patient have a stroke diagnosis?: No VTE Prior VTE?: No VTE Risk Level:: Medical - moderate - high VTE Device Contraindication: Treatment Not Indicated VTE Drug Contraindication: N/A - Med Ordered
[2022-02-12 11:42] LABS: Glucose, Whole Blood 181 mg/dL (60-115)
[2022-02-12] MEDS: Insulin Lispro 100 UNIT/ML 3 ML VIAL SUBCUT ×2 (11:42→23:35)
--- NOTE | 2022-02-12 11:46 | PC.NURSE ---
Noted blood coming from [place] tube that is hooked up to low intermittent suction, MD ANTHONY to bedside, hold heparin and turn of suction for now.
[2022-02-12 18:21] LABS: Glucose, Whole Blood 148 mg/dL (60-115)
[2022-02-12 23:33] LABS: Glucose, Whole Blood 192 mg/dL (60-115)
[2022-02-12] MEDS: propofoL 1,000 MG/100 ML VIAL 15.08 MG IVCONT (23:39)
[2022-02-13] VITALS (34 sets, daily range): BP systolic 119–170; BP diastolic 65–94; PULSE 69–110; RESP 13–22; TEMP 35–38; O2SAT 92–100; BMI 25.7
[2022-02-13] MEDS: Piperacillin Sodium/Tazobactam 4.5 GM in 0.9 % Sodium Chloride 100 ML IV ×4 (01:39→19:42)
[2022-02-13] MEDS: Albumin Human 25 % 100 ML IV (03:37)
[2022-02-13] MEDS: Pantoprazole Sodium 40 MG/10 ML VIAL IVPUSH (05:27)
[2022-02-13 05:31] LABS: Glucose, Whole Blood 144 mg/dL (60-115)
[2022-02-13 05:36] LABS: VBG Base Excess 4.1 mmol/L; VBG HCO3 25 mmol/L (22-26); VBG pCO2 29 mmHg; VBG pH 7.55 (7.32-7.43); VBG pO2 59 mmHg
[2022-02-13 05:38] LABS: Venous Blood Gas Refer to POC result
[2022-02-13] MEDS: propofoL 1,000 MG/100 ML VIAL 15.08 MG IVCONT (05:46)
[2022-02-13 05:56] LABS: MANUAL DIFF FLAG NO
[2022-02-13 06:00] LABS: Basophils Percent Auto 0.3 % (0-2); Hematocrit 34.1 % (42.0-52.0); Hemoglobin 10.5 g/dl (14.0-18.0); Imm Gran Abs Auto 0.04 X10*3/uL (0.00-0.03); Imm Gran Pct Auto 0.6 % (0.0-0.4); Lymphocytes Absolute Auto 0.8 X10*3/uL (1.2-4.9); Lymphocytes Percent Auto 11.5 % (20-40); Mean Corpuscular HGB Conc 30.8 g/dl (31.0-36.0); Mean Corpuscular Hemoglobin 25.7 pg (27.0-33.0); Mean Corpuscular Volume 83.4 fL (80.0-98.0); Mean Platelet Volume 9.8 fL (9.4-12.4); Monocytes Absolute Auto 0.8 X10*3/uL (0.1-1.2); Monocytes Percent Auto 11.8 % (2-11); Neutrophils Absolute Auto 5.3 x10*3/uL (2.0-8.3); Neutrophils Percent Auto 75.8 % (45-73); Platelet Count 213 X10*3/uL (160-400); Red Blood Count 4.09 X10*6/uL (4.60-5.80); Red Cell Distribution Width 15.7 % (11.0-16.0)
[2022-02-13 06:24] LABS: Albumin Level 4.5 g/dL (3.5-5.0); Anion Gap 15 (12-20); Blood Urea Nitrogen 25 mg/dL (9-16); Calcium 9.3 mg/dL (8.4-10.2); Carbon Dioxide 26 mmol/L (22-29); Chloride 104 mmol/L (96-108); Creatinine Clr Calc Pharmacy 98.4; Estimated Glomerular Filt Rate > 60; Glucose Random 153 mg/dL (60-115); Magnesium 1.9 mg/dL (1.6-2.6); Phosphorus 2.8 mg/dL (2.7-4.5); Potassium 3.6 mmol/L (3.3-5.1); Sodium 141 mmol/L (135-145)
--- NOTE | 2022-02-13 07:30 | CA_ITS ---
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 The visually estimated ejection fraction is between 50-55%. - Normal right ventricular cavity size and systolic function. - No obvious valvular pathology seen on this study. Findings Procedure Information Contrast agent, definity, is being given per protocol without apparent complications. Left Ventricle Normal left ventricular cavity size. There is normal left ventricular wall thickness. The left ventricular systolic function is normal. The visually estimated ejection fraction is between 50-55%. There is no evidence of regional wall motion abnormalities. Diastolic function is normal for age. Right Ventricle Normal right ventricular cavity size and systolic function. Atria Both atria are normal in size. Aortic Valve There is a normal trileaflet aortic valve. There is no aortic valve stenosis. There is no aortic valve regurgitation. Mitral Valve The mitral valve appears normal. There is no mitral valve regurgitation. There is no mitral valve stenosis. Pulmonic Valve The pulmonic valve was not well visualized. Tricuspid Valve Normal tricuspid valve structure. There is trace tricuspid valve regurgitation. Tricuspid regurgitation envelope is inadequate for calculation of right ventricular systolic pressure. (on vent). Great Vessels The aorta was not well visualized. The sinuses of valsalva is normal in size. Venous The inferior vena cava is normal in size and does not collapse with inspiration. There is evidence of a dilated coronary sinus. Pericardium/Pleural There is a trivial pericardial effusion. Prior Study Comparison No prior study available for comparison. Recommendations, Care & Conclusions No obvious valvular pathology seen on this study. Measurements 2D Linear Measurements IVSd: 1.00 0.6-0.9/0.6-1.0 cm LVIDd: 4.11 3.9-5.3/4.2-5.9 cm LVIDd Index: 2.16 2.4-3.2/2.2-3.1 cm/m2 LVIDs: 3.39 2.0-3.6 cm LVPWd: 1.05 0.7-1.1 cm LA Diam: 2.80 2.7-3.8/3.0-4.0 cm LAIDs Index: 1.47 1.5-2.3 cm/m2 LV Mass: 170.89 67-162/88-224 g LV Mass Index: 89.94 43-95/49-115 g/m2 LVOT Diam: 2.10 3.0+(-)1.3 cm 2D Systolic Function EF 4C: 54.90 >55% EF 2C: 57.70 >55% EF BiP: 55.50 >55% Mitral Valve MV Pk E: 0.74 MV PK A: 0.76 MV Decel Time: 230.00 E/A: 1.00 E'Lateral: 8.05 E'Medial: 7.40 E/E' Med: 10.00 E/E' Lat: 9.20 PHT: 67.00 MVA PHT: 3.28 Decel [place]: 3.23 Aortic Valve AoV Pk [place]: 1.22 AoV Mn [place]: 0.86 AoV VTI: 0.24 AoV Pk Grad: 6.00 Aov Mn Grad: 3.00 YUDI Cont.VTI: 2.38 LVOT LVOT Pk [place]: 0.81 LVOT Mn [place]: 0.60 LVOT VTI: 0.17 LVOT Pk Grad: 3.00 LVOT Mn Grad: 2.00 LVOT Diam: 2.10 LVOT Area: 3.46 Diastolic Function MV Pk E: 0.74 MV Pk A: 0.76 E/A: 1.00 E'Medial: 7.40 E/E' Med: 10.00 E' Laterial: 8.05 E/E' Lat: 9.20 Right Ventricle TAPSE (mm): 18.00 TVS' Chase: 11.60 Great Vessels Aorta Sinus of Valsalva: 3.33 2.0-3.5 cm Ao Asc: 3.50 2.1-3.4 cm Updated in Other Vendor System with Status of Final Kelby Artis MD electronically signed on 02/13/2022 10:41:58 AM with status of Final
[2022-02-13] MEDS: Chlorhexidine Gluc Oral Rinse 15 ML MOUTHWASH BUCCAL ×3 (08:21→19:45)
--- NOTE | 2022-02-13 10:54 | PM.CCPN ---
Subjective Subjective Date of Service: 02/13/22 Interval History: Mr. Vanegas was admitted to the ICU on February 11 after out of hospital cardiac arrest 2? aspiration. The patient is a 56-year-old gentleman with underlying alcohol syndrome, schizoaffective schizophrenia, MARA, dysphagia, DM, CHF, and COPD.? He lives at a senior care. He was BIBA to the ED on 02/11/2022 after cardiac arrest senior care.? He was reportedly walking around and suddenly dropped to the floor.? He was intubated in the failed.? ROSC after 3 rounds of epinephrine.? In the ED, on inspection of the hypopharynx with the Glidescope, a piece of a hot dog sausage was removed from the upper esophagus.? Chest CT showed evidence of retained food in his esophagus.? Evaluated by GI and EGD was scheduled for today. No events overnight.? This morning sedated on propofol 30ug.? No response to painful stimulus.? No gag reflex,? No dolls? eyes.? T-max 100.4 degrees.? HR 68, blood pressure 148/77.? On assist control 14/400/20 4%/+5, RR 14, Ve 5.2L, PIP 20cm, ETCO2 32mm, Sat 94%.? PER about 2.5mm.? No JVD at 30 degrees.? Chest is clear to auscultation except for 80 low-pitched inspiratory wheeze.? Normal expiratory phase.? Regular rate and rhythm, normal-sounding S1 and S2, with no murmur or gallop.? The abdomen is benign.? He has no peripheral edema. LABORATORY DATA:? Below. IMAGING:? Chest CT on admission shows acute bilat 5th-8th rib fxs, undoubtedly 2? CPR. IMPRESSION: 1. 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 2. Status post cardiac arrest. 3. Coma.? Current neurologic status, albeit on sedation, is very concerning. 4. Acute respiratory failure.? 2? above. 5. CV:? Echo this morning is essentially normal. 6. ? Esophageal abnormality.? Plan EGD today.? 7. Diabetes.? POC levels okay while he is not being tube fed. 8. Bilat rib fxs. Following EGD today, we?ll discontinue his sedation and see how he wakes up.? Spoke to his brother today, who is his de facto healthcare proxy.? Discussed his neurologic status and the upcoming EGD. Discussed with GI and w anesthesiology. Critical care time:? 70+ min. Critical Care Time (minutes): 70 Physical Exam Vital Signs: Vital Signs: Last Vital Signs Temp 97.0 F 02/13/22 10:00 Pulse 69 02/13/22 10:00 Resp 14 02/13/22 10:00 BP 148/77 H 02/13/22 10:00 Pulse Ox 95 02/13/22 10:00 BMI result Body Mass Index 25.7 Objective Data Labs CBC & Chem 7: 02/13/22 05:36 02/13/22 05:36 Labs: Laboratory Results - last 24 hr 02/12/22 02/12/22 02/12/22 11:39 18:17 23:27 WBC RBC Hgb Hct MCV MCH MCHC RDW Plt Count MPV Immature Gran % (Auto) Neut % (Auto) Lymph % (Auto) [place] % (Auto) Eos % (Auto) Baso % (Auto) Lymph # (Auto) [place] # (Auto) Eos # (Auto) Baso # (Auto) Abs Immat Gran (auto) Absolute Neuts (auto) Absolute Nucleated RBC Nucleated RBC % (auto) VBG pH VBG pCO2 VBG pO2 VBG HCO3 VBG O2 Saturation VBG Base Excess Sodium Potassium Chloride Carbon Dioxide Anion Gap BUN Creatinine Estim Creat Clear Calc Estimated GFR POC Glucose 181 H 148 H 192 H Random Glucose Calcium Phosphorus Magnesium Albumin 02/13/22 02/13/22 02/13/22 05:28 05:29 05:36 WBC 7.0 RBC 4.09 L Hgb 10.5 L Hct 34.1 L MCV 83.4 MCH 25.7 L MCHC 30.8 L RDW 15.7 Plt Count 213 MPV 9.8 Immature Gran % (Auto) 0.6 H Neut % (Auto) 75.8 H Lymph % (Auto) 11.5 L [place] % (Auto) 11.8 H Eos % (Auto) 0.0 Baso % (Auto) 0.3 Lymph # (Auto) 0.8 L [place] # (Auto) 0.8 Eos # (Auto) 0.0 Baso # (Auto) 0.0 Abs Immat Gran (auto) 0.04 H Absolute Neuts (auto) 5.3 Absolute Nucleated RBC 0.000 Nucleated RBC % (auto) 0.0 VBG pH 7.55 H VBG pCO2 29 VBG pO2 59 VBG HCO3 25 VBG O2 Saturation 88.0 VBG Base Excess 4.1 Sodium Potassium Chloride Carbon Dioxide Anion Gap BUN Creatinine Estim Creat Clear Calc Estimated GFR POC Glucose 144 H Random Glucose Calcium Phosphorus Magnesium Albumin 02/13/22 05:36 WBC RBC Hgb Hct MCV MCH MCHC RDW Plt Count MPV Immature Gran % (Auto) Neut % (Auto) Lymph % (Auto) [place] % (Auto) Eos % (Auto) Baso % (Auto) Lymph # (Auto) [place] # (Auto) Eos # (Auto) Baso # (Auto) Abs Immat Gran (auto) Absolute Neuts (auto) Absolute Nucleated RBC Nucleated RBC % (auto) VBG pH VBG pCO2 VBG pO2 VBG HCO3 VBG O2 Saturation VBG Base Excess Sodium 141 Potassium 3.6 Chloride 104 Carbon Dioxide 26 Anion Gap 15 BUN 25 H Creatinine 0.83 Estim Creat Clear Calc 98.4 Estimated GFR > 60 POC Glucose Random Glucose 153 H Calcium 9.3 D Phosphorus 2.8 Magnesium 1.9 Albumin 4.5 D Quality Stroke Does the patient have a stroke diagnosis?: No VTE Prior VTE?: No VTE Risk Level:: Medical - moderate - high VTE Device Contraindication: Treatment Not Indicated VTE Drug Contraindication: N/A - Med Ordered Critical Care Time Critical Care Time (minutes): 60
[2022-02-13 11:46] LABS: Glucose, Whole Blood 155 mg/dL (60-115)
[2022-02-13] MEDS: propofoL 1,000 MG/100 ML VIAL 12.57 MG IVCONT (11:48)
[2022-02-13] MEDS: Insulin Lispro 100 UNIT/ML 3 ML VIAL SUBCUT ×2 (12:26→18:26)
--- NOTE | 2022-02-13 16:24 | MHC.CM.PN ---
PIETER (DIRECTOR CARE II) AT [facility] UPDATED ON PATIENT STATUS. [phone]. CASE MANAGEMENT TO UPDATE WITH PROGRESS
--- NOTE | 2022-02-13 16:45 | HO.ANESPROP2 ---
HPI - Anesthesia Eval Consult details Narrative: 56-year-old gentleman with underlying alcohol syndrome, schizoaffective schizophrenia, MARA, dysphagia, DM, CHF, and COPD.? Was brought to ED on 02/11/2022 after cardiac arrest . He was reportedly walking around and suddenly dropped to the floor.? Intubated in field. ? ROSC after 3 rounds of epinephrine.?As per documentation in the ED , a piece of a hot dog sausage was removed from the upper esophagus.? 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 [facility] Active Problems Active Problems: All Active Problems (Updated 02/12/22 @ 11:08 by Js Hathaway MD) Schizo-affective schizophrenia (Acute) SANDIP (acute kidney injury) (Acute) COPD (chronic obstructive pulmonary disease) (Acute) Diabetes (Acute) Hypothermia (Acute) Elevated lactic acid level (Acute) SANDIP (acute kidney injury) (Acute) Aspiration into airway (Acute) Cardiac arrest (Acute) Iron deficiency anemia (Acute) Pneumonia (Acute) Dysphagia (Acute) Past Medical History Medical History (Updated 02/12/22 @ 11:08 by Js Hathaway MD) SANDIP (acute kidney injury) Aspiration pneumonia COPD (chronic obstructive pulmonary disease) Depression Diabetes Dysphagia Esophagitis with gastritis alcohol syndrome HTN (hypertension) Hyperkalemia Hyperkalemia Hyperlipidemia Internal hemorrhoids Internal hemorrhoids Iron deficiency anemia Iron deficiency anemia Obstructive sleep apnea Paranoia Schizo-affective schizophrenia Family History Family history of problems with anesthesia: Yes (PONV ) Surgical History Surgical History H/O endoscopy History of Problems with Anesthesia: No (as per brother ) Social History Social History Household Members: Other Household Members Other:: skilled nursing Housing: Assisted Living Facility Housing Other:: skilled nursing Do you presently have visiting nurse or other home services: No Unable to assess alcohol history related to: Unable to respond Alcohol intake: never Patient Tobacco Use Status: Former Tobacco user Tobacco use type: Cigarette Cigarette Packs Per Day: 1 Cigarettes Per Day: 20.0 e-Cigarette/Vaping Use: Currently Using Second Hand Smoke Exposure: No Use of substances other than those prescribed or required for medical reasons: Unable to respond Substance Use Type: Crack/Cocaine Currently Displaying Signs/Symptoms of Drug Intoxication Withdrawal: No Advance Directives: No Advance Directives Information Provided: No Recently lost weight without trying: Unsure Nutrition Risks: Difficulty chewing, Difficulty swallowing and On aspiration precautions service: No Current occupational status: disabled Meds Allergies Allergy/AdvReac Type Severity Reaction Status Date / Time prednisone Allergy Unknown Verified 02/10/22 23:21 Active Medications: Current Medications Acetaminophen (Acetaminophen Oral Liquid 650 Mg/20.3 Ml Solution) 650 mg OG-TUBE Q4H PRN PRN Reason: Fever >101 Last Admin: 02/11/22 06:21 Dose: 650 mg Documented by: Chlorhexidine Gluconate (Chlorhexidine Gluc Oral Rinse 15 Ml Mouthwash) 15 ml BUCCAL TID [facility] Last Admin: 02/13/22 14:45 Dose: 15 ml Documented by: Heparin Sodium (Porcine) (Heparin Sodium,Porcine 5,000 Unit/Ml Vial) 5,000 unit SUBCUT TID [facility] Last Admin: 02/12/22 20:49 Dose: 5,000 unit Documented by: Propofol (Diprivan) 1,000 mg in 100 mls @ 0 mls/hr IVCONT .Q0M [facility]; Protocol Last Titration: 02/13/22 12:00 Dose: 20 mcg/kg/min, 10.06 mls/hr Documented by: Piperacillin Sod/Tazobactam (Sod 4.5 gm/ Sodium Chloride) 100 mls @ 200 mls/hr IV Q6H [facility] Last Infusion: 02/13/22 15:19 Dose: Infused Documented by: Insulin Human Lispro (Insulin Lispro 100 Unit/Ml 3 Ml Vial) 0 unit SUBCUT Q6H [facility]; Protocol Last Admin: 02/13/22 12:26 Dose: 2 unit Documented by: Pantoprazole Sodium (Pantoprazole Sodium 40 Mg/10 Ml Vial) 40 mg IVPUSH DAILY@0630 [facility] Last Admin: 02/13/22 05:27 Dose: 40 mg Documented by: Home Medications Medication Instructions Recorded Confirmed Last Taken Type benztropine 1 mg tablet 1 tab PO BID 10/07/20 02/11/22 02/10/22 History budesonide 0.5 mg/2 mL suspension 1 vial INHALATION BID 10/07/20 02/11/22 02/10/22 History for nebulization clozapine 100 mg tablet 3 tab PO BEDTIME 10/07/20 02/11/22 02/10/22 History perphenazine 8 mg tablet 8 mg PO BEDTIME@199910/07/20 02/11/22 02/10/22 History simvastatin 40 mg tablet 40 mg PO BEDTIME 10/07/20 02/11/22 02/10/22 History albuterol sulfate 90 mcg/actuation 2 inh INHALATION QID PRN 04/25/21 02/11/22 09/28/21 History aerosol inhaler (ProAir HFA) ferrous sulfate 324 mg (65 mg 324 mg PO BID 04/25/21 02/11/22 02/10/22 History iron) tablet,delayed release insulin glargine 100 unit/mL (3 50 unit SUBCUT DAILY@1700 04/25/21 02/11/22 02/10/22 History mL) subcutaneous pen (Lantus Solostar U-100 Insulin) ipratropium 0.5 mg-albuterol 3 mg 3 ml INHALATION BID PRN 04/25/21 02/11/22 02/10/22 History (2.5 mg base)/3 mL nebulization soln paroxetine HCl 40 mg tablet 40 mg PO DAILY 04/25/21 02/11/22 02/10/22 History perphenazine 16 mg tablet 16 mg PO BID@0800,199904/25/21 02/11/22 02/10/22 History metformin 1,000 mg tablet 1,000 mg PO BIDWM 06/17/21 02/11/22 02/10/22 History triamcinolone acetonide 0.1 % 1 appl TOPICAL BID 06/17/21 02/11/22 02/10/22 History topical cream ammonium lactate 12 % lotion 1 appl TOPICAL BID 09/28/21 02/11/22 02/10/22 History Exam Exam Date and Time: February 13, 2022 164 Height,Weight and Vital Signs: Height 5 ft 8 in Weight 76.8 kg Last Vital Signs Temp 99.9 F 02/13/22 16:00 Pulse 76 02/13/22 16:00 Resp 14 02/13/22 16:00 BP 161/90 H 02/13/22 16:00 Pulse Ox 98 02/13/22 16:00 Pertinent Lab Results Pertinent Lab Results: Laboratory Tests 02/10/22 02/10/2202/10/22 23:14 23:19 23:19 WBC 9.1 RBC 4.43 L Hgb 11.7 L Hct 39.5 L MCV 89.2 MCH 26.4 L MCHC 29.6 L RDW 15.7 Plt Count 281 MPV 9.9 Immature Gran % (Auto) 4.5 H Neut % (Auto) 52.8 Lymph % (Auto) 33.2 [place] % (Auto) 8.9 Eos % (Auto) 0.3 Baso % (Auto) 0.3 Lymph # (Auto) 3.0 [place] # (Auto) 0.8 Eos # (Auto) 0.0 Baso # (Auto) 0.0 Abs Immat Gran (auto) 0.41 H Absolute Neuts (auto) 4.8 Absolute Nucleated RBC 0.020 H Nucleated RBC % (auto) 0.2 PT 13.0 INR 1.1 VBG pH VBG pCO2 VBG pO2 VBG HCO3 VBG O2 Saturation VBG Base Excess Sodium Potassium Chloride Carbon Dioxide Anion Gap BUN Creatinine Estim Creat Clear Calc Estimated GFR POC Glucose 259 H Random Glucose Lactic Acid Lactic Acid F/U @ 2Hr Lactic Acid F/U @ 4Hr Calcium Phosphorus Magnesium Total Bilirubin AST ALT Alkaline Phosphatase Troponin I High Sens B-Natriuretic Peptide Total Protein Albumin TSH Free T4 Urine Color Urine Appearance Urine pH Ur Specific [place] Urine Protein Urine Glucose (UA) Urine Ketones Urine Blood Urine Nitrite Ur Leukocyte Esterase Urine Opiates Screen Urine Fentanyl Screen Ur Barbiturates Screen Ur Phencyclidine Scrn Ur Amphetamines Screen U Benzodiazepines Scrn Urine Cocaine Screen U Marijuana (THC) Screen Acetone, Qual COVID-19 (ANDERS) COVID-19 Clin Com 02/10/22 02/10/22 02/10/22 23:19 23:19 23:19 WBC RBC Hgb Hct MCV MCH MCHC RDW Plt Count MPV Immature Gran % (Auto) Neut % (Auto) Lymph % (Auto) [place] % (Auto) Eos % (Auto) Baso % (Auto) Lymph # (Auto) [place] # (Auto) Eos # (Auto) Baso # (Auto) Abs Immat Gran (auto) Absolute Neuts (auto) Absolute Nucleated RBC Nucleated RBC % (auto) PT INR VBG pH VBG pCO2 VBG pO2 VBG HCO3 VBG O2 Saturation VBG Base Excess Sodium 142 Potassium 3.8 Chloride 105 Carbon Dioxide 20 L Anion Gap 21 H BUN 19 H Creatinine 1.18 Estim Creat Clear Calc 75.4 Estimated GFR > 60 POC Glucose Random Glucose 284 H D Lactic Acid Lactic Acid F/U @ 2Hr Lactic Acid F/U @ 4Hr Calcium 8.1 L D Phosphorus Magnesium 1.9 Total Bilirubin 0.2 AST 36 D ALT 33 Alkaline Phosphatase 96 Troponin I High Sens 4.3 B-Natriuretic Peptide 16 Total Protein 5.4 L Albumin 3.2 L TSH 8.45 H Free T4 0.77 Urine Color Urine Appearance Urine pH Ur Specific [place] Urine Protein Urine Glucose (UA) Urine Ketones Urine Blood Urine Nitrite Ur Leukocyte Esterase Urine Opiates Screen Urine Fentanyl Screen Ur Barbiturates Screen Ur Phencyclidine Scrn Ur Amphetamines Screen U Benzodiazepines Scrn Urine Cocaine Screen U Marijuana (THC) Screen Acetone, Qual COVID-19 (ANDERS) Negative [employer] See Note 02/10/22 02/10/22 02/10/22 23:19 23:19 23:23 WBC RBC Hgb Hct MCV MCH MCHC RDW Plt Count MPV Immature Gran % (Auto) Neut % (Auto) Lymph % (Auto) [place] % (Auto) Eos % (Auto) Baso % (Auto) Lymph # (Auto) [place] # (Auto) Eos # (Auto) Baso # (Auto) Abs Immat Gran (auto) Absolute Neuts (auto) Absolute Nucleated RBC Nucleated RBC % (auto) PT INR VBG pH 7.08 L* VBG pCO2 77 VBG pO2 73 VBG HCO3 23 VBG O2 Saturation 86.0 VBG Base Excess -8.1 Sodium Potassium Chloride Carbon Dioxide Anion Gap BUN Creatinine Estim Creat Clear Calc Estimated GFR POC Glucose Random Glucose Lactic Acid 9.9 H* Lactic Acid F/U @ 2Hr Lactic Acid F/U @ 4Hr Calcium Phosphorus Magnesium Total Bilirubin AST ALT Alkaline Phosphatase Troponin I High Sens B-Natriuretic Peptide Total Protein Albumin TSH Free T4 Urine Color Urine Appearance Urine pH Ur Specific [place] Urine Protein Urine Glucose (UA) Urine Ketones Urine Blood Urine Nitrite Ur Leukocyte Esterase Urine Opiates Screen Urine Fentanyl Screen Ur Barbiturates Screen Ur Phencyclidine Scrn Ur Amphetamines Screen U Benzodiazepines Scrn Urine Cocaine Screen U Marijuana (THC) Screen Acetone, Qual Negative COVID-19 (ANDERS) COVID-[employer] 02/10/22 02/10/22 02/11/22 23:57 23:57 00:43 WBC RBC Hgb Hct MCV MCH MCHC RDW Plt Count MPV Immature Gran % (Auto) Neut % (Auto) Lymph % (Auto) [place] % (Auto) Eos % (Auto) Baso % (Auto) Lymph # (Auto) [place] # (Auto) Eos # (Auto) Baso # (Auto) Abs Immat Gran (auto) Absolute Neuts (auto) Absolute Nucleated RBC Nucleated RBC % (auto) PT INR VBG pH VBG pCO2 VBG pO2 VBG HCO3 VBG O2 Saturation VBG Base Excess Sodium Potassium Chloride Carbon Dioxide Anion Gap BUN Creatinine Estim Creat Clear Calc Estimated GFR POC Glucose 222 H Random Glucose Lactic Acid Lactic Acid F/U @ 2Hr Lactic Acid F/U @ 4Hr Calcium Phosphorus Magnesium Total Bilirubin AST ALT Alkaline Phosphatase Troponin I High Sens B-Natriuretic Peptide Total Protein Albumin TSH Free T4 Urine Color YELLOW Urine Appearance HAZY Urine pH 6.0 Ur Specific [place] 1.010 Urine Protein TRACE Urine Glucose (UA) 500 H Urine Ketones NEG Urine Blood NEG Urine Nitrite NEG Ur Leukocyte Esterase NEG Urine Opiates Screen Not Detected Urine Fentanyl Screen Not Detected Ur Barbiturates Screen Not Detected Ur Phencyclidine Scrn Not Detected Ur Amphetamines Screen Not Detected U Benzodiazepines Scrn Not Detected Urine Cocaine Screen Not Detected U Marijuana (THC) Screen Not Detected Acetone, Qual COVID-19 (ANDERS) COVID-19 Clin Com 02/11/22 02/11/22 02/11/22 01:45 04:08 05:32 WBC RBC Hgb Hct MCV MCH MCHC RDW Plt Count MPV Immature Gran % (Auto) Neut % (Auto) Lymph % (Auto) [place] % (Auto) Eos % (Auto) Baso % (Auto) Lymph # (Auto) [place] # (Auto) Eos # (Auto) Baso # (Auto) Abs Immat Gran (auto) Absolute Neuts (auto) Absolute Nucleated RBC Nucleated RBC % (auto) PT INR VBG pH 7.48 H VBG pCO2 39 VBG pO2 49 VBG HCO3 30 H VBG O2 Saturation 78.0 VBG Base Excess 6.2 Sodium Potassium Chloride Carbon Dioxide Anion Gap BUN Creatinine Estim Creat Clear Calc Estimated GFR POC Glucose Random Glucose Lactic Acid Lactic Acid F/U @ 2Hr 3.7 H* Lactic Acid F/U @ 4Hr 2.0 Calcium Phosphorus Magnesium Total Bilirubin AST ALT Alkaline Phosphatase Troponin I High Sens B-Natriuretic Peptide Total Protein Albumin TSH Free T4 Urine Color Urine Appearance Urine pH Ur Specific [place] Urine Protein Urine Glucose (UA) Urine Ketones Urine Blood Urine Nitrite Ur Leukocyte Esterase Urine Opiates Screen Urine Fentanyl Screen Ur Barbiturates Screen Ur Phencyclidine Scrn Ur Amphetamines Screen U Benzodiazepines Scrn Urine Cocaine Screen U Marijuana (THC) Screen Acetone, Qual COVID-19 (ANDERS) COVID-19 Clin Com 02/11/22 02/11/22 02/12/22 05:35 05:35 05:20 WBC 10.2 8.5 RBC 4.77 4.46 L Hgb 12.2 L 11.6 L Hct 39.8 L 37.1 L MCV 83.4 D 83.2 MCH 25.6 L 26.0 L MCHC 30.7 L 31.3 RDW 15.5 16.0 Plt Count 251 238 MPV 10.2 9.8 Immature Gran % (Auto) 0.8 H 0.6 H Neut % (Auto) 87.0 H 81.4 H Lymph % (Auto) 4.5 L 8.6 L [place] % (Auto) 7.5 9.2 Eos % (Auto) 0.0 0.1 Baso % (Auto) 0.2 0.1 Lymph # (Auto) 0.5 L 0.7 L [place] # (Auto) 0.8 0.8 Eos # (Auto) 0.0 0.0 Baso # (Auto) 0.0 0.0 Abs Immat Gran (auto) 0.08 H 0.05 H Absolute Neuts (auto) 8.9 H 6.9 Absolute Nucleated RBC 0.000 0.000 Nucleated RBC % (auto) 0.0 0.0 PT INR VBG pH VBG pCO2 VBG pO2 VBG HCO3 VBG O2 Saturation VBG Base Excess Sodium 141 Potassium 4.1 Chloride 101 Carbon Dioxide 27 Anion Gap 17 BUN 23 H Creatinine 0.98 Estim Creat Clear Calc 83.3 Estimated GFR > 60 POC Glucose Random Glucose 196 H Lactic Acid Lactic Acid F/U @ 2Hr Lactic Acid F/U @ 4Hr Calcium 8.7 D Phosphorus 1.8 L Magnesium 1.5 L Total Bilirubin 0.5 AST 51 H ALT 50 H Alkaline Phosphatase 112 Troponin I High Sens B-Natriuretic Peptide Total Protein 6.1 L Albumin 3.6 TSH Free T4 Urine Color Urine Appearance Urine pH Ur Specific [place] Urine Protein Urine Glucose (UA) Urine Ketones Urine Blood Urine Nitrite Ur Leukocyte Esterase Urine Opiates Screen Urine Fentanyl Screen Ur Barbiturates Screen Ur Phencyclidine Scrn Ur Amphetamines Screen U Benzodiazepines Scrn Urine Cocaine Screen U Marijuana (THC) Screen Acetone, Qual COVID-19 (ANDERS) COVID-19 [employer] 02/12/22 02/12/22 02/12/22 05:20 05:23 11:39 WBC RBC Hgb Hct MCV MCH MCHC RDW Plt Count MPV Immature Gran % (Auto) Neut % (Auto) Lymph % (Auto) [place] % (Auto) Eos % (Auto) Baso % (Auto) Lymph # (Auto) [place] # (Auto) Eos # (Auto) Baso # (Auto) Abs Immat Gran (auto) Absolute Neuts (auto) Absolute Nucleated RBC Nucleated RBC % (auto) PT INR VBG pH 7.49 H VBG pCO2 38 VBG pO2 65 VBG HCO3 29 H VBG O2 Saturation 89.0 VBG Base Excess 6.3 Sodium 139 Potassium 3.7 Chloride 102 Carbon Dioxide 29 Anion Gap 12 BUN 24 H Creatinine 0.90 Estim Creat Clear Calc 90.7 Estimated GFR > 60 POC Glucose 181 H Random Glucose 223 H Lactic Acid Lactic Acid F/U @ 2Hr Lactic Acid F/U @ 4Hr Calcium 8.6 Phosphorus 2.9 Magnesium 1.9 Total Bilirubin AST ALT Alkaline Phosphatase Troponin I High Sens B-Natriuretic Peptide Total Protein Albumin 3.4 L TSH Free T4 Urine Color Urine Appearance Urine pH Ur Specific [place] Urine Protein Urine Glucose (UA) Urine Ketones Urine Blood Urine Nitrite Ur Leukocyte Esterase Urine Opiates Screen Urine Fentanyl Screen Ur Barbiturates Screen Ur Phencyclidine Scrn Ur Amphetamines Screen U Benzodiazepines Scrn Urine Cocaine Screen U Marijuana (THC) Screen Acetone, Qual COVID-19 (ANDERS) COVID-19 Clin Com 02/12/22 02/12/22 02/13/22 18:17 23:27 05:28 WBC RBC Hgb Hct MCV MCH MCHC RDW Plt Count MPV Immature Gran % (Auto) Neut % (Auto) Lymph % (Auto) [place] % (Auto) Eos % (Auto) Baso % (Auto) Lymph # (Auto) [place] # (Auto) Eos # (Auto) Baso # (Auto) Abs Immat Gran (auto) Absolute Neuts (auto) Absolute Nucleated RBC Nucleated RBC % (auto) PT INR VBG pH VBG pCO2 VBG pO2 VBG HCO3 VBG O2 Saturation VBG Base Excess Sodium Potassium Chloride Carbon Dioxide Anion Gap BUN Creatinine Estim Creat Clear Calc Estimated GFR POC Glucose 148 H 192 H 144 H Random Glucose Lactic Acid Lactic Acid F/U @ 2Hr Lactic Acid F/U @ 4Hr Calcium Phosphorus Magnesium Total Bilirubin AST ALT Alkaline Phosphatase Troponin I High Sens B-Natriuretic Peptide Total Protein Albumin TSH Free T4 Urine Color Urine Appearance Urine pH Ur Specific [place] Urine Protein Urine Glucose (UA) Urine Ketones Urine Blood Urine Nitrite Ur Leukocyte Esterase Urine Opiates Screen Urine Fentanyl Screen Ur Barbiturates Screen Ur Phencyclidine Scrn Ur Amphetamines Screen U Benzodiazepines Scrn Urine Cocaine Screen U Marijuana (THC) Screen Acetone, Qual COVID-19 (ANDERS) COVID-19 Clin Com 02/13/22 02/13/22 02/13/22 05:29 05:36 05:36 WBC 7.0 RBC 4.09 L Hgb 10.5 L Hct 34.1 L MCV 83.4 MCH 25.7 L MCHC 30.8 L RDW 15.7 Plt Count 213 MPV 9.8 Immature Gran % (Auto) 0.6 H Neut % (Auto) 75.8 H Lymph % (Auto) 11.5 L [place] % (Auto) 11.8 H Eos % (Auto) 0.0 Baso % (Auto) 0.3 Lymph # (Auto) 0.8 L [place] # (Auto) 0.8 Eos # (Auto) 0.0 Baso # (Auto) 0.0 Abs Immat Gran (auto) 0.04 H Absolute Neuts (auto) 5.3 Absolute Nucleated RBC 0.000 Nucleated RBC % (auto) 0.0 PT INR VBG pH 7.55 H VBG pCO2 29 VBG pO2 59 VBG HCO3 25 VBG O2 Saturation 88.0 VBG Base Excess 4.1 Sodium 141 Potassium 3.6 Chloride 104 Carbon Dioxide 26 Anion Gap 15 BUN 25 H Creatinine 0.83 Estim Creat Clear Calc 98.4 Estimated GFR > 60 POC Glucose Random Glucose 153 H Lactic Acid Lactic Acid F/U @ 2Hr Lactic Acid F/U @ 4Hr Calcium 9.3 D Phosphorus 2.8 Magnesium 1.9 Total Bilirubin AST ALT Alkaline Phosphatase Troponin I High Sens B-Natriuretic Peptide Total Protein Albumin 4.5 D TSH Free T4 Urine Color Urine Appearance Urine pH Ur Specific [place] Urine Protein Urine Glucose (UA) Urine Ketones Urine Blood Urine Nitrite Ur Leukocyte Esterase Urine Opiates Screen Urine Fentanyl Screen Ur Barbiturates Screen Ur Phencyclidine Scrn Ur Amphetamines Screen U Benzodiazepines Scrn Urine Cocaine Screen U Marijuana (THC) Screen Acetone, Qual COVID-19 (ANDERS) COVID-19 [employer] Com 02/13/22 11:43 WBC RBC Hgb Hct MCV MCH MCHC RDW Plt Count MPV Immature Gran % (Auto) Neut % (Auto) Lymph % (Auto) [place] % (Auto) Eos % (Auto) Baso % (Auto) Lymph # (Auto) [place] # (Auto) Eos # (Auto) Baso # (Auto) Abs Immat Gran (auto) Absolute Neuts (auto) Absolute Nucleated RBC Nucleated RBC % (auto) PT INR VBG pH VBG pCO2 VBG pO2 VBG HCO3 VBG O2 Saturation VBG Base Excess Sodium Potassium Chloride Carbon Dioxide Anion Gap BUN Creatinine Estim Creat Clear Calc Estimated GFR POC Glucose 155 H Random Glucose Lactic Acid Lactic Acid F/U @ 2Hr Lactic Acid F/U @ 4Hr Calcium Phosphorus Magnesium Total Bilirubin AST ALT Alkaline Phosphatase Troponin I High Sens B-Natriuretic Peptide Total Protein Albumin TSH Free T4 Urine Color Urine Appearance Urine pH Ur Specific [place] Urine Protein Urine Glucose (UA) Urine Ketones Urine Blood Urine Nitrite Ur Leukocyte Esterase Urine Opiates Screen Urine Fentanyl Screen Ur Barbiturates Screen Ur Phencyclidine Scrn Ur Amphetamines Screen U Benzodiazepines Scrn Urine Cocaine Screen U Marijuana (THC) Screen Acetone, Qual COVID-19 (ANDERS) COVID-19 Clin Com Airway Mallampati Class: IV (Patient already intubated and sedated ) Heart: s1, S2 Lungs: mechanical breath sounds b/l Assessment and Plan Assessment Anesthesia Assessment: Anesthesia Plan Discussed (with brother ) and Chart Reviewed Final Anesthetic Review Family History of Problems with Anesthesia: Yes (PONV ) History of Problems with Anesthesia: No (as per brother ) NPO: Yes ASA Class: V and Emergency Final Preanesthetic Review: Meds/Allgs Chart Reviewed, Consent Obtained/Reviewed (with brother ) and Anes Risks/Benef Reviewed Patient Risk: High Procedure Risk: High Anesthetic Plan Anesthetic Plan: GA Disposition: Inp. Admit - ICU
[2022-02-13 17:49] LABS: Glucose, Whole Blood 161 mg/dL (60-115)
--- NOTE | 2022-02-13 18:08 | P.BOP_ITS ---
Brief Operative Note Date of Service: 02/13/22 Pre-op diagnosis: Dysphagia, R/O Esophageal obstruction Post-op diagnosis: other (Esophageal foreign body(hot dog), hiatal hernia, gastritis, GERD) Procedure: EGD with removal of esophageal foreign body Surgeon: Andre Pantoja Anesthesia: GETA and MAC Was an Preparation Room Worker used for this Procedure?: No Estimated blood loss (mL): 0 Pathology: none sent Condition: stable Disposition: no change
--- NOTE | 2022-02-13 18:11 | PM.EVENT ---
Event Note Date of Service: 02/13/22 Event Note: GI-EGD with removal of esophageal foreign body-Full note dictated Findings: 1. Intact long piece of a hot dog in the proximal esophagus, as well as other parts of the hot dog. This was all pushed into the stomach with the scope. 2. EG Junction at 38cm with some edema and inflammation, but without mass, ulcer, nor stricture. The proximal esophaus appeared WNL. 3. Small hiatal hernia 4. Antral gastritis. Rec: Continue PPI, swallowing eval and consult with speech/swallowing team once he is extubated and if he awakens so as to determine ultimate diet for him once he is discharged. D/W Dr. Stallworth. D/W brother, Kirill. Thanks
[2022-02-13] MEDS: Acetaminophen Oral Liquid 650 MG/20.3 ML SOLUTION OG-TUBE (18:34)
[2022-02-13] MEDS: fentaNYL citrate/PF 100 MCG/2 ML VIAL 50 MCG IVPUSH (18:53)
[2022-02-13 23:57] LABS: Glucose, Whole Blood 172 mg/dL (60-115)
[2022-02-14] VITALS (30 sets, daily range): BP systolic 100–150; BP diastolic 44–88; PULSE 74–109; RESP 11–21; TEMP 34.6–38.5; O2SAT 93–123; BMI 25.6
--- NOTE | 2022-02-14 | EEG_ITS ---
The background activity consists of very low voltage background, essentially flat with superimposed muscle artifacts. No paroxysmal discharges seen. Photic stimulation and hyperventilation are omitted. IMPRESSION: This is a markedly abnormal EEG due to severe diffuse suppression of electrical activity. No seizure discharges are seen. MD TIP Dutta/MODL / [id number]
[2022-02-14] MEDS: fentaNYL citrate/PF 100 MCG/2 ML VIAL 50 MCG IVPUSH ×3 (00:01→13:42)
[2022-02-14] MEDS: Piperacillin Sodium/Tazobactam 4.5 GM in 0.9 % Sodium Chloride 100 ML IV ×2 (02:06→07:16)
--- NOTE | 2022-02-14 02:56 | OP_ITS ---
SURGEON: Andre Pantoja MD INDICATIONS: The patient presents for evaluation of suspicion for esophageal obstruction and history of dysphagia. Full consent has been obtained from his brother, Kirill, including risks of bleeding and perforation. PREOPERATIVE DIAGNOSIS: POSTOPERATIVE DIAGNOSIS: PROCEDURE PERFORMED: Esophagogastroduodenoscopy with removal of esophageal foreign body. ESTIMATED BLOOD LOSS: COMPLICATIONS: ANESTHESIA: Medications used, the patient was already intubated in the ICU but monitored anesthesia care was delivered by the Anesthesiology Department. ASSISTANTS: SPECIMENS: PREOPERATIVE DIAGNOSES: History of dysphagia and question of esophageal foreign body. POSTOPERATIVE DIAGNOSES: History of dysphagia, esophageal foreign body, hiatal hernia, and gastritis. DESCRIPTION OF PROCEDURE: The patient was in the supine position. The Olympus video gastroscope was passed in the posterior oropharynx and upper esophagus under direct vision. Immediately upon entering the esophagus a long piece of food consistent with a hot dog was visualized and was easily pushed into the stomach. There were also some other food particles in the proximal esophagus which were all pushed into the stomach as well. The gastroesophageal junction appeared at 38 cm. There was evidence of erythema and edema at this level, but no ulcerations, mass, nor stricture. The scope easily passed this and entered the stomach. The scope was advanced to the pylorus, and the duodenum was cannulated to the descending portion. The duodenum including the bulb appeared normal without mass or ulceration. The scope was withdrawn back into the stomach. The gastric antrum and body appeared normal with good peristalsis. There was some mild pre-pyloric antral gastritis but no mass or ulceration. The scope was retroflexed visualizing the proximal stomach carefully. There was some mild proximal gastritis, but no mass or ulceration. Again, I was able to visualize the presumed hot dog in the proximal stomach. The scope was straightened and withdrawn back to the esophagus. The esophagus itself appeared otherwise normal without any stricture nor ring. The esophageal mucosa appeared normal other than the above-mentioned edema and erythema at the EG junction. There were no proximal esophageal rings nor strictures. The scope was withdrawn from the patient. He tolerated the procedure well. IMPRESSION: 1. Esophageal foreign body consistent with that of a hot dog. This was pushed into the stomach and the esophagus was cleared. 2. Hiatal hernia. 3. Gastritis. 4. Gastroesophageal reflux. PLAN: I would recommend the patient continue his IV PPI until extubated and then be switched to an oral PPI. Before trying to eat anything, I would recommend that he have a full swallowing evaluation by the speech and swallowing team to see if would be safe to even feed him. Of course, this all depends upon him awakening and being extubated, given the ongoing concern with his recent cardiopulmonary arrest and potential for anoxic brain injury. This has been discussed with the patient's brother, Kirill, in detail. This has been discussed with Dr. Stallworth. MD BERNABE Rodriguez/OSMEL / [id number] MTDD
--- NOTE | 2022-02-14 03:25 | PC.NURSE ---
CARE ASSUMED 23:15...REMAINS TUBED/VENTED...AC/VCV MODE....REMAINS OFF CONTINOUS SEDATION... EXTREMETIES FLACCID..EYES OPEN TO NOXIOUS STIMULI BUT NO FOCUSING OR TRACKING..(+) GAG/COUGH REFLEXES..DYSYNCHRONOUS AND DESATURATION WITH CARE..FENTANYL 50 MCG IV X1 WITH WITH RETURN OF VENT SYNCHRONY..REMAINS NPO...SMITH WITH APPROX 20 CC/HR...ICU PA AWARE OF OUTPUT....NO NEW ORDERS...NSR..NO ECTOPY...BP STABLE
[2022-02-14 05:19] LABS: Glucose, Whole Blood 159 mg/dL (60-115)
[2022-02-14] MEDS: Insulin Lispro 100 UNIT/ML 3 ML VIAL SUBCUT ×4 (05:21→17:05)
[2022-02-14] MEDS: Pantoprazole Sodium 40 MG/10 ML VIAL IVPUSH (05:28)
[2022-02-14 06:24] LABS: VBG Base Excess -0.3 mmol/L; VBG HCO3 23 mmol/L (22-26); VBG pCO2 33 mmHg; VBG pH 7.44 (7.32-7.43); VBG pO2 51 mmHg
[2022-02-14 06:33] LABS: MANUAL DIFF FLAG NO
[2022-02-14 06:36] LABS: Basophils Percent Auto 0.3 % (0-2); Hematocrit 38.4 % (42.0-52.0); Hemoglobin 11.8 g/dl (14.0-18.0); Imm Gran Abs Auto 0.03 X10*3/uL (0.00-0.03); Imm Gran Pct Auto 0.5 % (0.0-0.4); Lymphocytes Absolute Auto 0.7 X10*3/uL (1.2-4.9); Lymphocytes Percent Auto 12.5 % (20-40); Mean Corpuscular HGB Conc 30.7 g/dl (31.0-36.0); Mean Corpuscular Hemoglobin 25.6 pg (27.0-33.0); Mean Corpuscular Volume 83.3 fL (80.0-98.0); Mean Platelet Volume 9.8 fL (9.4-12.4); Monocytes Absolute Auto 0.6 X10*3/uL (0.1-1.2); Monocytes Percent Auto 10.7 % (2-11); Neutrophils Absolute Auto 4.4 x10*3/uL (2.0-8.3); Platelet Count 231 X10*3/uL (160-400); Red Blood Count 4.61 X10*6/uL (4.60-5.80); Red Cell Distribution Width 15.7 % (11.0-16.0); White Blood Count 5.8 X10*3/uL (4.8-10.8)
[2022-02-14 06:43] LABS: Venous Blood Gas Refer to POC result
[2022-02-14 06:52] LABS: Anion Gap 15 (12-20); Blood Urea Nitrogen 26 mg/dL (9-16); Calcium 9.3 mg/dL (8.4-10.2); Carbon Dioxide 25 mmol/L (22-29); Chloride 104 mmol/L (96-108); Creatinine Clr Calc Pharmacy 99.6; Estimated Glomerular Filt Rate > 60; Glucose Fasting 150 mg/dL (60-99); Potassium 3.5 mmol/L (3.3-5.1); Sodium 140 mmol/L (135-145)
[2022-02-14] MEDS: Chlorhexidine Gluc Oral Rinse 15 ML MOUTHWASH BUCCAL ×3 (07:15→22:19)
[2022-02-14] MEDS: Heparin Sodium,Porcine 5,000 UNIT/ML VIAL 5000 UNIT SUBCUT ×3 (07:16→22:17)
--- NOTE | 2022-02-14 07:46 | PC.NURSE ---
Pt suctioned and had prolonged cough reflex, fentanyl given.
--- NOTE | 2022-02-14 10:11 | MHC.CM.PN ---
Addendum entered by Pau Camacho 02/14/22 10:46: who confirms that there is no HCP on file with them. Will discuss with director for the need of guardianship. Pt's brother, Kirill would likely be willing to serve this role and he has been the pt's contact and decision maker during pt's [facility] stay. Addendum entered by Pau Doug 02/14/22 10:42: received callback from [facility]: pt does not have a HCP on file: Call placed to Dr. Muñoz, pt's PCP, Original Note: Pt continues on Vent support following cardiac arrest d/t hypoxia r/t choking. The foreign material has been removed, sedation stopped and efforts are on return of neuro function. Per discussion at rounds, pt is not following commands and is exhibiting what the MD feels is posturing likely r/t brain injury/anoxia. Call placed to [facility], spoke with Leena to give a clinical update. She verified that pt is his own guardian and to her knowledge, no HCP exists. Pt does have a MOLST on file with full support options noted. Pt is affiliated with the [facility] and has a case technician named April Goncalves. Leena to update her on above. Will call [facility] for HCP record as pt has received care with [facility] providers. MD to update pt's brother, Kirill.
[2022-02-14 11:10] LABS: Glucose, Whole Blood 163 mg/dL (60-115)
--- NOTE | 2022-02-14 11:17 | HO.POSTANES ---
Post Anesthesia Evaluation Post Anesthesia Evaluation Vital Signs: Vital Signs Temp Pulse Resp BP Pulse Ox 02/14/22 11:00 98.1 F 90 15 150/85 H 95 02/14/22 10:00 89 14 145/82 H 95 02/14/22 09:00 76 14 123/73 96 02/14/22 08:00 100.4 F 74 14 123 H 02/14/22 07:15 14 02/14/22 07:00 101.1 F H 109 H 21 H 142/71 H 99 02/14/22 05:56 101.1 F H 80 14 129/77 95 02/14/22 04:55 101.3 F H 85 14 142/84 H 93 02/14/22 03:55 100.9 F H 82 14 134/76 95 02/14/22 02:51 100.9 F H 76 14 124/70 94 02/14/22 02:00 100.6 F H 80 14 126/70 97 02/14/22 00:59 99.7 F 74 14 123/65 96 02/13/22 23:56 100.4 F 94 16 138/71 95 Anesthesia: Monitored Mental Status: Sedated Anesthesia-Related Issues: No Anes. Related Issues Comments: pt is intubated, sedated, no history could be gained, there was no anesthesia related issue
--- NOTE | 2022-02-14 11:20 | MHC.CLN ---
F/U PT WITH INCREASED NUTRITION RISK R/T INTUBATION AND LOW FATOUMATA SCORE PT REMAINS INTUBATED TF TO START TODAY RECOMMEND GLUCERNA AT MAX GOAL RATE 80ML/HR WITH 240ML FREE WATER FLUSHES Q 8HRS TO PROVIDE 1920KCALS (25KCALS/KG), 80G PROTEIN (1.04G/KG), 2358CC TOTAL WATER FROM FORMULA AND FLUSHES (30.7ML/KG) START AT 20ML/HR AND INCREASE BY 10ML Q 4 HRS UNTIL MAX GOAL IS ACHIEVED MONITOR TOLERANCE, RESIDUALS AND LYTES
[2022-02-14] MEDS: Glycopyrrolate 0.2 MG/ML VIAL 0.1 MG IVPUSH ×2 (13:01→19:50)
[2022-02-14 17:03] LABS: Glucose, Whole Blood 152 mg/dL (60-115)
--- NOTE | 2022-02-14 17:43 | PM.CCPN ---
Subjective Subjective Date of Service: 02/14/22 Interval History: Mr. Vanegas was admitted to the ICU on February 11 after out of hospital cardiac arrest 2? aspiration. The patient is a 56-year-old gentleman with underlying alcohol syndrome, schizoaffective schizophrenia, MARA, dysphagia, DM, CHF, and COPD.? He lives at a fci. He was BIBA to the ED late on 02/10/2022 after cardiac arrest at his fci.? He was reportedly walking around and suddenly dropped to the floor.? He was intubated in the field.? ROSC after 3 rounds of epinephrine.? In the ED, on inspection of the hypopharynx with the Glidescope, a piece of a hot dog sausage was removed from the upper esophagus.? Chest CT showed evidence of retained food in his esophagus.? The patient was admitted to the ICU.? He was evaluated by GI and EGD was scheduled for yesterday.? At endoscopy, a long piece of retained hot dog was visualized and pushed into the stomach.? Other findings included a hiatal hernia, gastritis, and gastroesophageal reflux. Following the EGD yesterday afternoon, the patient's propofol was turned off.? After some time, the patient remained comatose and unresponsive.? Best neurologic response was decorticate posturing -- GCS 5T.? He had no dolls? eyes, no gag reflex.? Decorticate posturing to painful stimuli. No events overnight.? This morning, neurologic status is unchanged.? Decorticate posturing to painful stimulus.? No gag reflex,? No dolls? eyes.? Diminished corneal reflexes.? He is being cooled to maintain maximum temperature at 98.6 degrees. ?T-max 101 degrees early this morning.? HR 89, blood pressure 138/82.? On assist control 6/440/21%/+5, RR 13, Ve 5.2L, PIP 18cm, ETCO2 32mm, Sat 95%.? PER about 3.5mm.? No JVD at 30 degrees.? Chest is clear to auscultation.? Normal expiratory phase.? Regular rate and rhythm, normal-sounding S1 and S2, with no murmur or gallop.? The abdomen is benign.? He has no peripheral edema. LABORATORY DATA:? Below. IMAGING:? Chest CT on admission shows acute bilat 5th-8th rib fxs, undoubtedly 2? CPR. IMPRESSION: 1. Underlying GLASS CUTTER HELPER disease at baseline. 2. Status post cardiac arrest. 3. Coma.? Current neurologic status is very concerning.? Clearly has brainstem deficits.? Head CT tomorrow.? At this point, it is virtually certain that the patient will be vegetative, if he survives.? An EEG was done today, waiting for the results. 4. Acute respiratory failure.? 2? above. 5. CV:? Echo 02/13 essentially normal. 6. ? Esophageal abnormality.? Nothing major found on EGD yesterday, altho the patient has a well documented h/o dysphagia, accord to the pt?s brother. 7. SANDIP.? Slight rise in his BUN, likely bec of dehydration.? Will add IV fluids. 8. Diabetes.? Tube feeds started today.? POC levels okay so far. 9. Bilat rib fxs. 10. Nutrition.? Started on Glucerna. Met with the patient?s brother Kirill (cell [phone]) today at the bedside.? Explained to him what happened, and discussed the relevant brain pathophysiology of cardiac arrest.? He?s taking it very hard bec his father two years ago, and his brother Aramis was all the family he had left.? He doesn?t want to be made to make any decisions.? I suggested to him that he go home and take a day or two or as long as he needs to think about it.? No decision need be made any time soon. At this point the patient remains with ?full code? status, but were he to have a cardiac arrest, I would not be aggressive. Critical care time:? 60+ min. Critical Care Time (minutes): 60 Physical Exam Vital Signs: Vital Signs: Last Vital Signs Temp 97.7 F 02/14/22 17:00 Pulse 90 02/14/22 17:00 Resp 14 02/14/22 17:00 BP 144/86 H 02/14/22 17:00 Pulse Ox 95 02/14/22 17:00 BMI result Body Mass Index 25.6 Objective Data Labs CBC & Chem 7: 02/14/22 06:30 02/14/22 06:30 Labs: Laboratory Results - last 24 hr 02/13/22 02/13/22 02/14/22 17:45 23:51 05:14 WBC RBC Hgb Hct MCV MCH MCHC RDW Plt Count MPV Immature Gran % (Auto) Neut % (Auto) Lymph % (Auto) [place] % (Auto) Eos % (Auto) Baso % (Auto) Lymph # (Auto) [place] # (Auto) Eos # (Auto) Baso # (Auto) Abs Immat Gran (auto) Absolute Neuts (auto) Absolute Nucleated RBC Nucleated RBC % (auto) VBG pH VBG pCO2 VBG pO2 VBG HCO3 VBG O2 Saturation VBG Base Excess Sodium Potassium Chloride Carbon Dioxide Anion Gap BUN Creatinine Estim Creat Clear Calc Estimated GFR POC Glucose 161 H 172 H 159 H Fasting Glucose Calcium 02/14/22 02/14/22 02/14/22 06:16 06:30 06:30 WBC 5.8 RBC 4.61 Hgb 11.8 L Hct 38.4 L MCV 83.3 MCH 25.6 L MCHC 30.7 L RDW 15.7 Plt Count 231 MPV 9.8 Immature Gran % (Auto) 0.5 H Neut % (Auto) 76.0 H Lymph % (Auto) 12.5 L [place] % (Auto) 10.7 Eos % (Auto) 0.0 Baso % (Auto) 0.3 Lymph # (Auto) 0.7 L [place] # (Auto) 0.6 Eos # (Auto) 0.0 Baso # (Auto) 0.0 Abs Immat Gran (auto) 0.03 Absolute Neuts (auto) 4.4 Absolute Nucleated RBC 0.000 Nucleated RBC % (auto) 0.0 VBG pH 7.44 H VBG pCO2 33 VBG pO2 51 VBG HCO3 23 VBG O2 Saturation 78.0 VBG Base Excess -0.3 Sodium 140 Potassium 3.5 Chloride 104 Carbon Dioxide 25 Anion Gap 15 BUN 26 H Creatinine 0.82 Estim Creat Clear Calc 99.6 Estimated GFR > 60 POC Glucose Fasting Glucose 150 H Calcium 9.3 02/14/22 02/14/22 11:03 17:00 WBC RBC Hgb Hct MCV MCH MCHC RDW Plt Count MPV Immature Gran % (Auto) Neut % (Auto) Lymph % (Auto) [place] % (Auto) Eos % (Auto) Baso % (Auto) Lymph # (Auto) [place] # (Auto) Eos # (Auto) Baso # (Auto) Abs Immat Gran (auto) Absolute Neuts (auto) Absolute Nucleated RBC Nucleated RBC % (auto) VBG pH VBG pCO2 VBG pO2 VBG HCO3 VBG O2 Saturation VBG Base Excess Sodium Potassium Chloride Carbon Dioxide Anion Gap BUN Creatinine Estim Creat Clear Calc Estimated GFR POC Glucose 163 H 152 H Fasting Glucose Calcium Quality Stroke Does the patient have a stroke diagnosis?: No VTE Prior VTE?: No VTE Risk Level:: Medical - moderate - high VTE Device Contraindication: Treatment Not Indicated VTE Drug Contraindication: N/A - Med Ordered Critical Care Time Critical Care Time (minutes): 60
[2022-02-14] MEDS: Lactated Ringers 1,000 ML 100 ML IVCONT (19:26)
[2022-02-14 23:51] LABS: Glucose, Whole Blood 184 mg/dL (60-115)
[2022-02-15] VITALS (33 sets, daily range): BP systolic 124–149; BP diastolic 39–86; PULSE 71–90; RESP 10–20; TEMP 34.5–36.7; O2SAT 85–97; BMI 25.6
[2022-02-15] MEDS: Insulin Lispro 100 UNIT/ML 3 ML VIAL SUBCUT ×3 (00:24→11:43)
--- NOTE | 2022-02-15 02:22 | PC.NURSE ---
ASSUMED CARE OF PT AT 1900. PT REMAINS ON AC VENT SETTINGS. AC RATE 6. PT BREATHING 11-12/MIN. MINUTE VOLUME 5-5.5. COPIOUS ORAL SECRETIONS NOTED. RECEIVED ROBINOL WITH SOME EFFECTIVENESS. SMALL AMOUNT OF CLEAR SECRETIONS VIA ETT. PT REACTS TO ANY INTERVENTION BY BECOMING RIGID AND STRONG CONTINUOUS COUGHING. THIS SUBSIDES QUICKLY WHEN DONE WITH INTERVENTION. O2 SAT DOES DROP WITH COUGHING TO MID 80'S BUT RECOVERS QUICKLY. PT DOES NOT RESPOND TO VOICE OR COMMAND. SCLERODEMA NOTED AND EYES ARE RED. PUPILS 2MM RTL. WRIST RESTRAINTS RELEASED AND NO MOVEMENT NOTED. MONITOR SHOWS NSR, 80'S, NO ECTOPY. BP STABLE. AFEBRILE. URINE OUTPUT LOW, < 30 ML/HR. LACTATED RINGERS STARTED AT 100 ML/HR. OUTPUT IMPROVED TO 50-60 ML/HR.
[2022-02-15] MEDS: Lactated Ringers 1,000 ML 100 ML IVCONT ×2 (04:44→14:57)
[2022-02-15 05:22] LABS: VBG Base Excess 0.5 mmol/L; VBG HCO3 24 mmol/L (22-26); VBG pCO2 35 mmHg; VBG pH 7.43 (7.32-7.43); VBG pO2 58 mmHg
[2022-02-15 05:29] LABS: Venous Blood Gas Refer to POC result
[2022-02-15 05:39] LABS: MANUAL DIFF FLAG NO
[2022-02-15 05:41] LABS: Basophils Percent Auto 0.5 % (0-2); Eosinophils Percent Auto 0.2 % (0-4); Hematocrit 37.5 % (42.0-52.0); Hemoglobin 11.8 g/dl (14.0-18.0); Imm Gran Abs Auto 0.02 X10*3/uL (0.00-0.03); Imm Gran Pct Auto 0.4 % (0.0-0.4); Lymphocytes Absolute Auto 0.7 X10*3/uL (1.2-4.9); Lymphocytes Percent Auto 12.9 % (20-40); Mean Corpuscular HGB Conc 31.5 g/dl (31.0-36.0); Mean Corpuscular Hemoglobin 26.3 pg (27.0-33.0); Mean Corpuscular Volume 83.5 fL (80.0-98.0); Mean Platelet Volume 10.4 fL (9.4-12.4); Monocytes Absolute Auto 0.6 X10*3/uL (0.1-1.2); Neutrophils Absolute Auto 4.2 x10*3/uL (2.0-8.3); Platelet Count 212 X10*3/uL (160-400); Red Blood Count 4.49 X10*6/uL (4.60-5.80); Red Cell Distribution Width 15.7 % (11.0-16.0); White Blood Count 5.5 X10*3/uL (4.8-10.8)
[2022-02-15 05:47] LABS: Glucose, Whole Blood 177 mg/dL (60-115)
[2022-02-15] MEDS: Glycopyrrolate 0.2 MG/ML VIAL 0.1 MG IVPUSH (05:48)
[2022-02-15 05:58] LABS: Anion Gap 15 (12-20); Blood Urea Nitrogen 25 mg/dL (9-16); Calcium 9.5 mg/dL (8.4-10.2); Carbon Dioxide 25 mmol/L (22-29); Chloride 103 mmol/L (96-108); Estimated Glomerular Filt Rate > 60; Glucose Random 176 mg/dL (60-115); Magnesium 1.5 mg/dL (1.6-2.6); Phosphorus 3.1 mg/dL (2.7-4.5); Potassium 3.6 mmol/L (3.3-5.1); Sodium 139 mmol/L (135-145)
[2022-02-15] MEDS: Chlorhexidine Gluc Oral Rinse 15 ML MOUTHWASH BUCCAL ×3 (08:02→20:51)
[2022-02-15] MEDS: Heparin Sodium,Porcine 5,000 UNIT/ML VIAL 5000 UNIT SUBCUT ×2 (08:02→14:58)
--- NOTE | 2022-02-15 08:04 | P.CDIC_ITS ---
CDI Concurrent Query Documentation Clarification: PHYSICIAN'S DOCUMENTATION REQUEST Date of Query: 02/15/22804 Patient Name: Jyace Vanegas Admit Date: 02/11/22 Dear Doctor, A review of the medical record indicates additional documentation may be needed. Please review below and update the documentation accordingly. Risk Factors/Clinical Indicators/Treatments Clinical nutrition assessment 02/13 - patient is overweight with BMI 25.7 5' 8 in height NPO Intubated Adding Glucerna and monitoring. If possible, please provide an associated diagnosis related to the abnormal BMI, such as: For a BMI <= 19: * Underweight * Weight loss * Cachexia * Anorexia For a BMI >= 25.7 * Overweight * Other or undetermined Or: * BMI is not significant * Other (please specify) * Unable to determine Use of terms such as suspected, likely, concern for, or probable (associated with a specific diagnosis that is being evaluated, monitored, or treated as if it exists) are acceptable and can be coded in the inpatient setting, when doc umented at the time of discharge. Thank you, Lara Gibson [facility], CDIS Extension: [phone] Please use your independent medical judgment in providing your response. THIS QUERY IS PART OF THE PERMANENT MEDICAL RECORD Provider Response: Obesity
--- NOTE | 2022-02-15 08:04 | MHC.CDI.CONC ---
CDI Concurrent Query Documentation Clarification: PHYSICIAN'S DOCUMENTATION REQUEST Date of Query: 02/15/22804 Patient Name: Jayce Vanegas Admit Date: 02/11/22 Dear Doctor, A review of the medical record indicates additional documentation may be needed. Please review below and update the documentation accordingly. Risk Factors/Clinical Indicators/Treatments Clinical nutrition assessment 02/13 - patient is overweight with BMI 25.7 5' 8 in height NPO Intubated Adding Glucerna and monitoring. If possible, please provide an associated diagnosis related to the abnormal BMI, such as: For a BMI <= 19: Underweight Weight loss Cachexia Anorexia For a BMI >= 25.7 Overweight Other or undetermined Or: BMI is not significant Other (please specify) Unable to determine Use of terms such as suspected, likely, concern for, or probable (associated with a specific diagnosis that is being evaluated, monitored, or treated as if it exists) are acceptable and can be coded in the inpatient setting, when documented at the time of discharge. Thank you, Lara Gibson [facility], CDIS Extension: [phone] Please use your independent medical judgment in providing your response. THIS QUERY IS PART OF THE PERMANENT MEDICAL RECORD Provider Response: Obesity
[2022-02-15] MEDS: fentaNYL citrate/PF 100 MCG/2 ML VIAL 50 MCG IVPUSH (08:44)
--- NOTE | 2022-02-15 10:13 | MHC.CLN ---
F/U PT REMAINS INTUBATED DISCUSSED AT ROUNDS WITH CT SCAN SHOWED CEREBRAL CORTEX DAMAGE MD REQUESTING D/C TF AT THIS TIME WILL FOLLOW WITH TEAM AND PROVIDE SUPPORT NEEDED
[2022-02-15 11:43] LABS: Glucose, Whole Blood 170 mg/dL (60-115)
--- NOTE | 2022-02-15 12:48 | PM.CCPN ---
Subjective Subjective Date of Service: 02/15/22 Interval History: Mr. Vanegas was admitted to the ICU on February 11 after out of hospital cardiac arrest 2? aspiration. The patient is a 56-year-old gentleman with underlying alcohol syndrome, schizoaffective schizophrenia, MARA, dysphagia, DM, CHF, and COPD.? He lives at a longterm. He was BIBA to the ED late on 02/10/2022 after cardiac arrest at his longterm.? He was reportedly walking around and suddenly dropped to the floor.? He was intubated in the field.? ROSC after 3 rounds of epinephrine.? In the ED, on inspection of the hypopharynx with the Glidescope, a piece of a hot dog sausage was removed from the upper esophagus.? Chest CT showed evidence of retained food in his esophagus.? The patient was admitted to the ICU.? He was evaluated by GI.? At EGD on 02/13, a long piece of retained hot dog was visualized and pushed into the stomach.? Other findings included a hiatal hernia, gastritis, and gastroesophageal reflux. Following the EGD, the patient's propofol was turned off.? After some time, the patient remained comatose and unresponsive.? Best neurologic response was decorticate posturing -- GCS 5T.? He had no dolls? eyes, no gag reflex.? Decorticate posturing to painful stimuli.? Clearly had spontaneous breathing though. No events overnight.? This morning, neurologic status is unchanged, altho he has no corneals today.? Decorticate posturing to painful stimulus.? No gag reflex,? No dolls? eyes.? He is being cooled to maintain maximum temperature at 98.6 degrees.? T-max 98.4?.? HR 83, blood pressure 145/79.? We changed him over to PSV.? On PSV 12/21%/+5, RR 14, Vt 350cc, Ve 4.5L, PIP 17cm, ETCO2 35mm, Sat 94%.? PER about 2.5mm.? No JVD at 30 degrees.? Chest is clear to auscultation.? Normal expiratory phase.? Regular rate and rhythm, normal-sounding S1 and S2, with no murmur or gallop.? The abdomen is benign.? He has trace peripheral edema. LABORATORY DATA:? Below. IMAGING:? Chest CT on admission shows acute bilat 5th-8th rib fxs, undoubtedly 2? CPR. HEAD CT this morning shows diffuse loss of kirby-white differentiation suggestive of diffuse cerebral edema, characteristic of anoxic brain injury. EEG done yesterday is essentially flat, consistent with absent cortical function, characteristic of anoxic brain injury. IMPRESSION: 1. Underlying CERTIFIED PROSTHETIST/ORTHOTIST disease at baseline. 2. Underlying obesity. 3. Status post cardiac arrest. 4. Coma.? Exam, EEG, and CT are consistent with complete loss of cortical function.? Additionally, exam shows partial loss of brain stem function.? Still has decorticate posturing and still has respiratory drive.? In my opinion, it is likely that he will eventually progress to brain .? But if not, it is a certainty that he will be vegetative. 5. Acute respiratory failure.? 2? above. 6. CV:? Echo 02/13 essentially normal. 7. ? Esophageal abnormality.? Nothing major found on EGD, altho the patient has a well documented h/o dysphagia, accord to the pt?s brother and according to his past medical history. 8. SANDIP.? Slight rise in his BUN, likely bec of dehydration.? LR is running at 100cc/hr. 9. Diabetes.? Tube feeds started yesterday.? POC levels okay so far. 10. Bilat rib fxs 2? CPR. I met with the patient?s brother Kirill (cell [phone]) at the bedside yesterday and explained to him what happened, and discussed the relevant brain pathophysiology of cardiac arrest.? He?s taking it very hard bec his father two years ago, and his brother Aramis was all the family he had left.? He doesn?t want to be made to make any decisions. Today I spoke with him by telephone and discussed with him the additional information we had in regards to the EEG and the CT scan.? I told him in clear terms that there was no question that Aramis no longer had cortical function and was never going to wake up, and in my opinion was likely to progress to brain .? He asked me what the next step was, and I suggested that, given that Aramis is breathing spontaneously, the kind and respectful thing to do would be to pull the endotracheal tube and let him be in peace.? And we could do that whenever he?s ready.? I indicated to him that there is no tillman, and no one is pushing him to do anything.? I suggested that he think about all that and we will talk further tomorrow. As a side issue, I indicated to Kirill that should to him have a further cardiac arrest, we would not do CPR again.? He very much accepted that. Critical care time:? 60+ min. Critical Care Time (minutes): 60 Physical Exam Vital Signs: Vital Signs: Last Vital Signs Temp 97.2 F 02/15/22 12:00 Pulse 71 02/15/22 12:00 Resp 10 L 02/15/22 12:00 BP 145/79 H 02/15/22 12:00 Pulse Ox 95 02/15/22 12:00 BMI result Body Mass Index 25.6 Objective Data Labs CBC & Chem 7: 02/15/22 05:18 02/15/22 05:19 Labs: Laboratory Results - last 24 hr 02/14/22 02/14/22 02/15/22 17:00 23:47 05:14 WBC RBC Hgb Hct MCV MCH MCHC RDW Plt Count MPV Immature Gran % (Auto) Neut % (Auto) Lymph % (Auto) [place] % (Auto) Eos % (Auto) Baso % (Auto) Lymph # (Auto) [place] # (Auto) Eos # (Auto) Baso # (Auto) Abs Immat Gran (auto) Absolute Neuts (auto) Absolute Nucleated RBC Nucleated RBC % (auto) VBG pH 7.43 VBG pCO2 35 VBG pO2 58 VBG HCO3 24 VBG O2 Saturation 85.0 VBG Base Excess 0.5 Sodium Potassium Chloride Carbon Dioxide Anion Gap BUN Creatinine Estim Creat Clear Calc Estimated GFR POC Glucose 152 H 184 H Random Glucose Calcium Phosphorus Magnesium 02/15/22 02/15/22 02/15/22 05:18 05:19 05:44 WBC 5.5 RBC 4.49 L Hgb 11.8 L Hct 37.5 L MCV 83.5 MCH 26.3 L MCHC 31.5 RDW 15.7 Plt Count 212 MPV 10.4 Immature Gran % (Auto) 0.4 Neut % (Auto) 76.0 H Lymph % (Auto) 12.9 L [place] % (Auto) 10.0 Eos % (Auto) 0.2 Baso % (Auto) 0.5 Lymph # (Auto) 0.7 L [place] # (Auto) 0.6 Eos # (Auto) 0.0 Baso # (Auto) 0.0 Abs Immat Gran (auto) 0.02 Absolute Neuts (auto) 4.2 Absolute Nucleated RBC 0.000 Nucleated RBC % (auto) 0.0 VBG pH VBG pCO2 VBG pO2 VBG HCO3 VBG O2 Saturation VBG Base Excess Sodium 139 Potassium 3.6 Chloride 103 Carbon Dioxide 25 Anion Gap 15 BUN 25 H Creatinine 0.71 Estim Creat Clear Calc 115.0 Estimated GFR > 60 POC Glucose 177 H Random Glucose 176 H Calcium 9.5 Phosphorus 3.1 Magnesium 1.5 L 02/15/22 11:41 WBC RBC Hgb Hct MCV MCH MCHC RDW Plt Count MPV Immature Gran % (Auto) Neut % (Auto) Lymph % (Auto) [place] % (Auto) Eos % (Auto) Baso % (Auto) Lymph # (Auto) [place] # (Auto) Eos # (Auto) Baso # (Auto) Abs Immat Gran (auto) Absolute Neuts (auto) Absolute Nucleated RBC Nucleated RBC % (auto) VBG pH VBG pCO2 VBG pO2 VBG HCO3 VBG O2 Saturation VBG Base Excess Sodium Potassium Chloride Carbon Dioxide Anion Gap BUN Creatinine Estim Creat Clear Calc Estimated GFR POC Glucose 170 H Random Glucose Calcium Phosphorus Magnesium Quality Stroke Does the patient have a stroke diagnosis?: No VTE Prior VTE?: No VTE Risk Level:: Medical - moderate - high VTE Device Contraindication: Treatment Not Indicated VTE Drug Contraindication: N/A - Med Ordered Critical Care Time Critical Care Time (minutes): 60
[2022-02-15] MEDS: Magnesium Sulfate/H2O 2 GM/50 ML PIGGYBACK IV (13:13)
--- NOTE | 2022-02-15 15:20 | MHC.CM.PN ---
CT of head notes extensive brain damage r/t anoxic brain injury including brain stem involvement. MD has had lengthy discussions with pt's brother, Kirill re: poor prognosis and no chance for any recovery. Kirill will consider COURT ADVOCATE - MD to discuss again on 02/16. Pt had been a LT resident of a senior living [facility] director of status: Guardianship pursuance has been temporarily halted at this time.
[2022-02-15 18:08] LABS: Glucose, Whole Blood 159 mg/dL (60-115)
--- NOTE | 2022-02-15 18:11 | PC.NURSE ---
Addendum entered by Nargis Coello RN 02/15/22 18:19: Propofol drip started. ET tube 7.5 and 24 jose l. AC settings: rate 12, t.vol 450, peep 5, 40%fio2. Soft limb restraints to bilateral wrists applied for patient safety. Update given to Patient's mother /HCP Mita. Per Mita it is ok to given updates on patient's condition to Chrissy, retired RN and family friend. Original Note: Received patient from [facility]. Patient in severe alcohol withdraw. Disoriented, hallucinating, agitated and on all fours in bed. Patient attempting to get out of bed, pulling at equipment, and swinging at staff. PRN bolus of Precedex given and Precedex drip started per MD order. Patient still restless and agitated. O2 sats trending in the low to mid 80s, oxygen applied. made aware, plan for emergent intubation for airway protection and safety. Intubated with Rocuronium, ketamine, and fentanyl.
[2022-02-15 20:37] LABS: Hematocrit 34.4 % (42.0-52.0); Hemoglobin 11.2 g/dl (14.0-18.0)
[2022-02-15] MEDS: Pantoprazole Sodium 40 MG/10 ML VIAL 80 MG IVPUSH (20:50)
[2022-02-15] MEDS: Pantoprazole Sodium 80 MG in 0.9 % Sodium Chloride 80 ML 10 MG IV (23:00)
[2022-02-16] VITALS (30 sets, daily range): BP systolic 124–150; BP diastolic 60–82; PULSE 68–91; RESP 11–16; TEMP 34.8–36.7; O2SAT 88–98; BMI 25.6
[2022-02-16] MEDS: Lactated Ringers 1,000 ML 100 ML IVCONT ×3 (01:48→20:35)
[2022-02-16] MEDS: Insulin Lispro 100 UNIT/ML 3 ML VIAL SUBCUT ×3 (02:00→17:42)
[2022-02-16 02:47] LABS: Glucose, Whole Blood 180 mg/dL (60-115)
[2022-02-16 05:26] LABS: VBG HCO3 24 mmol/L (22-26); VBG pCO2 34 mmHg; VBG pH 7.45 (7.32-7.43); VBG pO2 56 mmHg
[2022-02-16 05:52] LABS: Glucose, Whole Blood 146 mg/dL (60-115)
[2022-02-16] MEDS: Pantoprazole Sodium 80 MG in 0.9 % Sodium Chloride 80 ML 10 MG IV (05:52)
[2022-02-16 05:55] LABS: MANUAL DIFF FLAG NO
[2022-02-16 06:05] LABS: Basophils Percent Auto 0.1 % (0-2); Eosinophils Percent Auto 0.1 % (0-4); Hematocrit 34.5 % (42.0-52.0); Hemoglobin 11.1 g/dl (14.0-18.0); Imm Gran Abs Auto 0.03 X10*3/uL (0.00-0.03); Imm Gran Pct Auto 0.4 % (0.0-0.4); Lymphocytes Absolute Auto 0.7 X10*3/uL (1.2-4.9); Lymphocytes Percent Auto 9.8 % (20-40); Mean Corpuscular HGB Conc 32.2 g/dl (31.0-36.0); Mean Corpuscular Hemoglobin 25.9 pg (27.0-33.0); Mean Corpuscular Volume 80.4 fL (80.0-98.0); Mean Platelet Volume 10.2 fL (9.4-12.4); Monocytes Absolute Auto 0.5 X10*3/uL (0.1-1.2); Monocytes Percent Auto 7.5 % (2-11); Neutrophils Absolute Auto 5.5 x10*3/uL (2.0-8.3); Neutrophils Percent Auto 82.1 % (45-73); Platelet Count 211 X10*3/uL (160-400); Red Blood Count 4.29 X10*6/uL (4.60-5.80); Red Cell Distribution Width 15.4 % (11.0-16.0); White Blood Count 6.8 X10*3/uL (4.8-10.8)
[2022-02-16 06:09] LABS: Venous Blood Gas Refer to POC result
[2022-02-16 06:31] LABS: Alanine Aminotransferase 19 U/L (0-40); Albumin Level 3.5 g/dL (3.5-5.0); Alkaline Phosphatase 81 U/L (39-117); Anion Gap 13 (12-20); Aspartate Amino Transferase 38 U/L (5-37); Bilirubin Total 0.5 mg/dL (0.0-1.0); Blood Urea Nitrogen 19 mg/dL (9-16); Calcium 8.9 mg/dL (8.4-10.2); Carbon Dioxide 26 mmol/L (22-29); Chloride 101 mmol/L (96-108); Creatinine Clr Calc Pharmacy 127.6; Estimated Glomerular Filt Rate > 60; Glucose Random 144 mg/dL (60-115); Potassium 3.5 mmol/L (3.3-5.1); Sodium 136 mmol/L (135-145); Total Protein 5.4 g/dL (6.5-8.0)
--- NOTE | 2022-02-16 08:02 | PC.NURSE ---
Assumed care at 19:00. DNR/DNI was invoked yesterday 02/15 on days. Patient is largely without purposeful movement, not in restraints, is tremulous in response to lifting either arm; turns his head toward the person lifting his arm bilaterally, withdraws to pain in all four extremities, flaccidity of the extensor muscles of neck is apparent, and head droops down anteriorly when HOB is raised beyond 30 degrees. Pupils 3 mm and briskly reactive to light, no tracking, but eyes withdraw from bright light bilaterally. Patient with bilateral scleral edema with weeping yellowish clear exudate from left eye, sclerae are reddened and edemetous; discussed with PA, and no new orders. Placed tepid moist washcloths topically with some good effect. Patient with sligltly high BPs, 130's-140's. sinus rhythm on monitor, no ectopy. Mild edema to distal upper and lower extremities. Urine outputs low 20-25 ccs abmer urine per hour. Skin is intact. Large loose brown BM 02/15. OGT to low intermittent suction, maroon dark output 200 ccs, also fingersticks (POCs 140-180). No diet. Patient was on no GI PPX and discussed with PA, new order for high dose protonix 80 MG IVP followed by start IV protonix gtt at 8mg/hour = 10 cc/ hour.
[2022-02-16] MEDS: Chlorhexidine Gluc Oral Rinse 15 ML MOUTHWASH BUCCAL ×3 (10:02→20:35)
--- NOTE | 2022-02-16 10:16 | MHC.CM.PN ---
Pt continues on ventilatory care in ICU: severely brain injured d/t hypoxia with no chance for any recovery. Call placed to pt's brother, Kirill to update him on status: Kirill verbalized concerns with obtaining medical information for his account support rep. Informed him that he would need to contact [facility] risk and legal for assistance. Reiterated to Kirill that our role is to provide medical and emotional care to the patient at this time. Kirill may be in to visit on 02/17 and may consider ADDICTIONS RECOVERY SPECIALIST status. CM to follow.
--- NOTE | 2022-02-16 10:17 | MHC.CLN ---
F/U PT REMAINS INTUBATED FAMILY HAS NOT MADE FINAL DECISION REGARDING PLAN OF CARE DISCUSSED WITH MD TO RE-START TF RECOMMEND GLUCERNA AT MAX GOAL RATE 80ML/HR WITH 240ML FREE WATER FLUSHES Q 8HRS TO PROVIDE 1920KCALS (25KCALS/KG), 80G PROTEIN (1.04G/KG), 2358CC TOTAL WATER FROM FORMULA AND FLUSHES (30.7ML/KG) START AT 20ML/HR AND INCREASE BY 10ML Q 4 HRS UNTIL MAX GOAL IS ACHIEVED MONITOR TOLERANCE, RESIDUALS AND LYTES
--- NOTE | 2022-02-16 10:59 | PM.CCPN ---
Subjective Subjective Date of Service: 02/16/22 Interval History: Mr. Vanegas was admitted to the ICU on February 11 after out of hospital cardiac arrest 2? aspiration. The patient is a 56-year-old gentleman with underlying alcohol syndrome, schizoaffective schizophrenia, MARA, dysphagia, DM, CHF, and COPD.? He lives at a long-term. He was BIBA to the ED late on 02/10/2022 after cardiac arrest at his long-term.? He was reportedly walking around and suddenly dropped to the floor.? He was intubated in the field.? ROSC after 3 rounds of epinephrine.? (My estimate for CPR time is at least 15 minutes, assuming CPR was started immediately, a call was made to 911, time for the ambulance to arrive, time for the crew to set up and place an IV, then time for 3 rounds of epinephrine.) In the ED, on inspection of the hypopharynx with the Glidescope, a piece of a hot dog sausage was removed from the upper esophagus.? Chest CT showed evidence of retained food in his esophagus.? The patient was stabilized and admitted to the ICU.? He was evaluated by GI.? Underwent EGD on 02/13:? A long piece of retained hot dog was visualized in the esophagus and pushed into the stomach.? Other minor findings included a hiatal hernia, gastritis, and gastroesophageal reflux.? No indication of any major problem w the esophagus. Following the EGD, the patient's propofol was turned off.? After some time, the patient remained comatose and unresponsive.? Best neurologic response was decorticate posturing -- GCS 5T.? He had no dolls? eyes, no gag reflex.? Decorticate posturing to painful stimuli.? Clearly had spontaneous breathing though. Generally been stable since then.? No neurologic improvements.? EEG on 02/14 was basically flat, c/w absent cortical function.? Head CT yesterday showed loss of architecture indicating diffuse cerebral edema.? Today is day 6 after cardiac arrest; peak edema was presumably day 3. Over the evening yesterday had some coffee grounds drainage into his OG tube.? Hb stable.? Started on IV PPI. This morning, neurologic status is unchanged:? Decorticate posturing to stimulation.? No corneals, no gag reflex, no dolls? eyes.? Afebrile.? HR 77, blood pressure 150/82.? Yesterday we had him on PSV.? In the evening, he had a few apneic spells, so we put him back on AC rate of 6 for the night.? This morning.?? We changed him over to PSV.? On PSV 10/21%/+5, RR 16, Vt 320cc, Ve 4.5L, PIP 16cm, ETCO2 30mm, Sat 94%.? PER about 2.5mm.? No JVD at 30 degrees.? Chest is clear to auscultation.? Normal expiratory phase.? Regular rate and rhythm, normal-sounding S1 and S2, with no murmur or gallop.? The abdomen is benign.? He has no signif edema.? OGT output this morning is clear. We tried lower levels of PSV.? At PSV 5cm, max Vt was about 200cc.? 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 LABORATORY DATA:? Below.? Hb steady.? Venous pCO2 steady in the mid 30s.? Renal indices down after two days of IV hydration. IMAGING:? Chest CT on admission shows acute bilat 5th-8th rib fxs, undoubtedly 2? CPR. HEAD CT yesterday showed diffuse loss of kirby-white differentiation suggestive of diffuse cerebral edema, characteristic of anoxic brain injury. EEG done 02/14 is essentially flat, consistent with absent cortical function, characteristic of anoxic brain injury. IMPRESSION: 1. 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 2. Underlying obesity. 3. Status post cardiac arrest, likely 2? aspiration w airway obstruction. 4. Coma.? Exam, EEG, and CT are consistent with complete loss of cortical function.? Additionally, exam shows partial loss of brain stem function.? Still has decorticate posturing and still has partial thought not full respiratory drive.? I have been thinking that he would eventually progress to brain , but the further out we get, the less likely that is.? If he survives, it is a certainty that he will be vegetative. 5. Acute respiratory failure.? 2? above. 6. CV:? Echo 02/13 essentially normal. 7. ? Esophageal abnormality.? Nothing major found on EGD, altho the patient has a well documented h/o dysphagia, accord to the pt?s brother and according to his past medical history. 8. SANDIP.? Resolving post hydration.? Continue IV fluids one more day. 9. Diabetes.? POC levels okay so far. 10. Bilat rib fxs 2? CPR. 11. Nutrition:? On Gluc On February 14, I met with the patient?s brother Kirill (cell [phone]) at the bedside and explained to him what happened, and discussed the relevant brain pathophysiology of cardiac arrest.? He?s taking it very hard bec his father two years ago, and his brother Aramis was all the family he had left.? He doesn?t want to be made to make any decisions. Yesterday I spoke with him by telephone and discussed with him the additional information we had in regards to the EEG and the CT scan.? I told him in clear terms that there was no question that Aramis no longer had cortical function and was never going to wake up, and in my opinion was likely to progress to brain .? He asked me what the next step was, and I suggested that, given that Aramis is breathing spontaneously, the kind and respectful thing to do would be to pull the endotracheal tube and let him be in peace.? And we could do that whenever he?s ready.? I indicated to him that there is no tillman, and no one is pushing him to do anything.? I suggested that he think about all that and we will talk further tomorrow. As a side issue, I indicated to Kirill that should Aramis have a further cardiac arrest, we would not do CPR again.? He accepted that. Pau Camacho spoke with him today.? At this point, it appears that he is seeking the opinions of others close to him in regards to what to do.? We will continue general intensive care. Critical Care Time (minutes): 60 Physical Exam Vital Signs: Vital Signs: Last Vital Signs Temp 96.6 F L 02/16/22 10:00 Pulse 77 02/16/22 10:00 Resp 11 L 02/16/22 10:00 BP 150/81 H 02/16/22 10:00 Pulse Ox 95 02/16/22 09:00 BMI result Body Mass Index 25.6 Objective Data Labs CBC & Chem 7: 02/16/22 05:48 02/16/22 05:48 Labs: Laboratory Results - last 24 hr 02/15/22 02/15/22 02/15/22 11:41 18:05 20:26 WBC RBC Hgb 11.2 L Hct 34.4 L MCV MCH MCHC RDW Plt Count MPV Immature Gran % (Auto) Neut % (Auto) Lymph % (Auto) [place] % (Auto) Eos % (Auto) Baso % (Auto) Lymph # (Auto) [place] # (Auto) Eos # (Auto) Baso # (Auto) Abs Immat Gran (auto) Absolute Neuts (auto) Absolute Nucleated RBC Nucleated RBC % (auto) VBG pH VBG pCO2 VBG pO2 VBG HCO3 VBG O2 Saturation VBG Base Excess Sodium Potassium Chloride Carbon Dioxide Anion Gap BUN Creatinine Estim Creat Clear Calc Estimated GFR POC Glucose 170 H 159 H Random Glucose Calcium Total Bilirubin AST ALT Alkaline Phosphatase Total Protein Albumin 02/16/22 02/16/22 02/16/22 01:52 05:16 05:47 WBC RBC Hgb Hct MCV MCH MCHC RDW Plt Count MPV Immature Gran % (Auto) Neut % (Auto) Lymph % (Auto) [place] % (Auto) Eos % (Auto) Baso % (Auto) Lymph # (Auto) [place] # (Auto) Eos # (Auto) Baso # (Auto) Abs Immat Gran (auto) Absolute Neuts (auto) Absolute Nucleated RBC Nucleated RBC % (auto) VBG pH 7.45 H VBG pCO2 34 VBG pO2 56 VBG HCO3 24 VBG O2 Saturation 86.0 VBG Base Excess 1.0 Sodium Potassium Chloride Carbon Dioxide Anion Gap BUN Creatinine Estim Creat Clear Calc Estimated GFR POC Glucose 180 H 146 H Random Glucose Calcium Total Bilirubin AST ALT Alkaline Phosphatase Total Protein Albumin 02/16/22 02/16/22 05:48 05:48 WBC 6.8 RBC 4.29 L Hgb 11.1 L Hct 34.5 L MCV 80.4 MCH 25.9 L MCHC 32.2 RDW 15.4 Plt Count 211 MPV 10.2 Immature Gran % (Auto) 0.4 Neut % (Auto) 82.1 H Lymph % (Auto) 9.8 L [place] % (Auto) 7.5 Eos % (Auto) 0.1 Baso % (Auto) 0.1 Lymph # (Auto) 0.7 L [place] # (Auto) 0.5 Eos # (Auto) 0.0 Baso # (Auto) 0.0 Abs Immat Gran (auto) 0.03 Absolute Neuts (auto) 5.5 Absolute Nucleated RBC 0.000 Nucleated RBC % (auto) 0.0 VBG pH VBG pCO2 VBG pO2 VBG HCO3 VBG O2 Saturation VBG Base Excess Sodium 136 Potassium 3.5 Chloride 101 Carbon Dioxide 26 Anion Gap 13 BUN 19 H Creatinine 0.64 Estim Creat Clear Calc 127.6 Estimated GFR > 60 POC Glucose Random Glucose 144 H Calcium 8.9 D Total Bilirubin 0.5 AST 38 H ALT 19 Alkaline Phosphatase 81 D Total Protein 5.4 L Albumin 3.5 D Quality Stroke Does the patient have a stroke diagnosis?: No VTE Prior VTE?: No VTE Risk Level:: Medical - moderate - high VTE Device Contraindication: Treatment Not Indicated VTE Drug Contraindication: N/A - Med Ordered Critical Care Time Critical Care Time (minutes): 60
[2022-02-16 12:24] LABS: Glucose, Whole Blood 176 mg/dL (60-115)
[2022-02-16] MEDS: Potassium Chloride Packet 20 MEQ PACKET 40 MEQ G-TUBE (12:57)
[2022-02-16] MEDS: Magnesium Sulfate/D5W 1 GM/100 ML PIGGYBACK IV (12:57)
[2022-02-16 17:35] LABS: Glucose, Whole Blood 166 mg/dL (60-115)
[2022-02-16 23:51] LABS: Glucose, Whole Blood 170 mg/dL (60-115)
[2022-02-17] VITALS (23 sets, daily range): BP systolic 112–158; BP diastolic 66–85; PULSE 59–79; RESP 6–15; TEMP 34.7–36.7; O2SAT 90–97; BMI 26.9
[2022-02-17] MEDS: Insulin Lispro 100 UNIT/ML 3 ML VIAL SUBCUT ×2 (00:03→05:55)
[2022-02-17] MEDS: Potassium Chloride Packet 20 MEQ PACKET 40 MEQ G-TUBE (00:04)
[2022-02-17 05:27] LABS: VBG Base Excess -1.2 mmol/L; VBG HCO3 20 mmol/L (22-26); VBG pCO2 26 mmHg; VBG pO2 51 mmHg
[2022-02-17 05:32] LABS: Venous Blood Gas Refer to POC result
[2022-02-17 05:33] LABS: MANUAL DIFF FLAG NO
[2022-02-17 05:36] LABS: Basophils Percent Auto 0.2 % (0-2); Eosinophils Percent Auto 0.2 % (0-4); Hematocrit 32.4 % (42.0-52.0); Hemoglobin 10.9 g/dl (14.0-18.0); Imm Gran Abs Auto 0.04 X10*3/uL (0.00-0.03); Imm Gran Pct Auto 0.7 % (0.0-0.4); Lymphocytes Absolute Auto 0.8 X10*3/uL (1.2-4.9); Mean Corpuscular HGB Conc 33.6 g/dl (31.0-36.0); Mean Corpuscular Hemoglobin 27.4 pg (27.0-33.0); Mean Corpuscular Volume 81.4 fL (80.0-98.0); Mean Platelet Volume 9.8 fL (9.4-12.4); Monocytes Absolute Auto 0.5 X10*3/uL (0.1-1.2); Monocytes Percent Auto 8.4 % (2-11); Neutrophils Absolute Auto 4.7 x10*3/uL (2.0-8.3); Neutrophils Percent Auto 77.5 % (45-73); Platelet Count 186 X10*3/uL (160-400); Red Blood Count 3.98 X10*6/uL (4.60-5.80); Red Cell Distribution Width 16.4 % (11.0-16.0); White Blood Count 6.1 X10*3/uL (4.8-10.8)
[2022-02-17] MEDS: Lactated Ringers 1,000 ML 100 ML IVCONT (05:41)
[2022-02-17 05:49] LABS: Glucose, Whole Blood 198 mg/dL (60-115)
[2022-02-17 05:54] LABS: Alanine Aminotransferase 18 U/L (0-40); Albumin Level 3.3 g/dL (3.5-5.0); Alkaline Phosphatase 81 U/L (39-117); Anion Gap 14 (12-20); Aspartate Amino Transferase 37 U/L (5-37); Bilirubin Total 0.5 mg/dL (0.0-1.0); Blood Urea Nitrogen 16 mg/dL (9-16); Calcium 8.7 mg/dL (8.4-10.2); Carbon Dioxide 22 mmol/L (22-29); Chloride 99 mmol/L (96-108); Creatinine Clr Calc Pharmacy 123.7; Estimated Glomerular Filt Rate > 60; Glucose Random 182 mg/dL (60-115); Potassium 3.8 mmol/L (3.3-5.1); Sodium 131 mmol/L (135-145); Total Protein 5.2 g/dL (6.5-8.0)
[2022-02-17] MEDS: Chlorhexidine Gluc Oral Rinse 15 ML MOUTHWASH BUCCAL (08:19)
[2022-02-17] MEDS: Glycopyrrolate 0.2 MG/ML VIAL 0.1 MG IVPUSH (08:22)
--- NOTE | 2022-02-17 08:40 | P.CDIC_ITS ---
CDI Concurrent Query Documentation Clarification: PHYSICIAN'S DOCUMENTATION REQUEST Date of Query: 02/17/22 0840 Patient Name: Jayce Vanegas Admit Date: 02/11/22 Dear Doctor, A review of the medical record indicates additional documentation may be needed. Please review below and update the documentation accordingly. Clinical Indicators: Risk Factors/Clinical Indicators/Treatments ICU: 02/12 - Echo (2nd) pending Underlying history of Congestive heart failure. History of CHF noted Please provide further specificity regarding the most likely type and acuity of CHF you are evaluating, treating, or monitoring. CHF noted within the medical record: Specifics Type: * Systolic * Diastolic * Combined Systolic/Diastolic * Other if known * Unable to determine Acuity: * Acute * Chronic * Acute on chronic * Unable to determine Use of terms such as suspected, likely, concern for, or probable (associated with a specific diagnosis that is being evaluated, monitored, or treated as if it exists) are acceptable and can be coded in the inpatient setting, when documented at the time of discharge. Thank you, Lara Gibson [facility], CDIS Extension: [phone] Please use your independent medical judgment in providing your response. THIS QUERY IS PART OF THE PERMANENT MEDICAL RECORD Provider Response: Other Other Diagnosis: There is a history of CHF in the chart, but no evidence of that on my echo. So I can't comment further about that.
--- NOTE | 2022-02-17 10:10 | MHC.CLN ---
F/U PT REMAINS INTUBATED TF CURRENTLY RUNNING AT 50ML/HR PER NSG AND PT IS TOLERATING WELL PT TO RECEIVE GLUCERNA AT MAX GOAL RATE 80ML/HR WITH 240ML FREE WATER FLUSHES Q 8HRS TO PROVIDE 1920KCALS (25KCALS/KG), 80G PROTEIN (1.04G/KG), 2358CC TOTAL WATER FROM FORMULA AND FLUSHES (30.7ML/KG) MONITOR TOLERANCE, RESIDUALS AND LYTES
--- NOTE | 2022-02-17 11:01 | P.PNCC_ITS ---
Subjective Subjective Date of Service: 02/17/22 Interval History: Mr. Vanegas was admitted to the ICU on February 11 after out of hospital cardiac arrest 2? aspiration. The patient is a 56-year-old gentleman with underlying alcohol syndrome, schizoaffective schizophrenia, MARA, dysphagia, DM, CHF, and COPD.? He lives at a retirement. He was BIBA to the ED late on 02/10/2022 after cardiac arrest at his retirement.? He was reportedly walking around and suddenly dropped to the floor.? He was intubated in the field.? ROSC after 3 rounds of epinephrine.? (My estimate for CPR time is at least 15 minutes, assuming CPR was started immediately, a call was made to 911, time for the ambulance to arrive, time for the crew to set up and place an IV, then time for 3 rounds of epinephrine.) In the ED, on inspection of the hypopharynx with the Glidescope, a piece of a hot dog sausage was removed from the upper esophagus.? Chest CT showed evidence of retained food in his esophagus.? The patient was stabilized and admitted to the ICU.? He was evaluated by GI.? Underwent EGD on 02/13:? A long piece of retained hot dog was visualized in the esophagus and pushed into the stomach.? Other minor findings included a hiatal hernia, gastritis, and gastroesophageal reflux.? No indication of any major problem w the esophagus. Following the EGD, the patient's propofol was turned off.? After some time, the patient remained comatose and unresponsive.? Best neurologic response was decorticate posturing -- GCS 5T.? He had no dolls? eyes, no gag reflex.? Decorticate posturing to painful stimuli.? Clearly had spontaneous breathing though. Generally been stable since then.? No neurologic improvements.? EEG on 02/14 was basically flat, c/w absent cortical function.? Head CT yesterday showed loss of architecture indicating diffuse cerebral edema.? Today is day 7 after cardiac arrest; peak edema was presumably day 3.? We?ve had him on PSV but at lower levels of PSV in the 10-12 cm range, after a few hours he drops his tidal vols, and ultimately fails. This morning, neurologic status is unchanged:? Decorticate posturing to stimulation.? No corneals, no gag reflex, no dolls? eyes.? Afebrile.? HR 73, SR.? BP 118/70.? He was on AC rate 14 overnight.? I changed his rate to 6.? On AC 6/440/21/+5, RR 10, Ve 4.3L, PIP 18cm, ETCO2 34mm, Sat 95%.? PER about 2.5mm.? No JVD at 30 degrees.? Chest is clear to auscultation.? Normal expiratory phase.? Regular rate and rhythm, normal-sounding S1 and S2, with no murmur or gallop.? The abdomen is benign.? He has trace edema.? He?s on tube feeds w no residuals. I spoke with his brother Kirill.? 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 He wants to come in to see Aramis right after we extubate him.? In preparation, we?ve changed his ventilator mode to PSV with full support.? On PSV 15cm, RR is 5-10, Vt 600-700cc, Ve 4-5L. LABORATORY DATA:? Below.? Venous pCO2 is steady.? Renal indices steady. IMAGING:? Chest CT on admission shows acute bilat 5th-8th rib fxs, undoubtedly 2? CPR. HEAD CT 02/15 showed diffuse loss of kirby-white differentiation suggestive of diffuse cerebral edema, characteristic of anoxic brain injury. EEG 02/14 is essentially flat, consistent with absent cortical function, characteristic of anoxic brain injury. IMPRESSION: 1. 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 2. Underlying obesity. 3. Status post cardiac arrest, likely 2? aspiration w airway obstruction. 4. Coma.? Exam, EEG, and CT are consistent with complete loss of cortical funct ion.? Additionally, exam shows partial loss of brain stem function.? Still has decorticate posturing and still has partial though not full respiratory drive. 5. Acute respiratory failure.? 2? above. 6. CV:? Echo 02/13 essentially normal.? (The patient reportedly has a history of CHF, but I am not able to document that.) 7. ? Esophageal abnormality.? Nothing major found on EGD, altho the patient has a well documented h/o dysphagia, accord to the pt?s brother and according to his past medical history. 8. SANDIP.? Resolved post hydration. 9. Diabetes.? POC levels okay so far. 10. Bilat rib fxs 2? CPR. 11. Nutrition:? On Glucerna Plan is for terminal extubation later this afternoon.? I don?t think he will survive for more than a few hours, if that.? I spoke to his brother Kirill this morning by phone about all that, and he understands. 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 Critical care time (includ mult d/w case management): 50+ min. Critical Care Time (minutes): 50 Physical Exam Vital Signs: Vital Signs: Last Vital Signs Temp 97.1 F 02/17/22 08:00 Pulse 76 02/17/22 10:00 Resp 15 02/17/22 10:00 BP 142/76 H 02/17/22 10:00 Pulse Ox 94 02/17/22 10:00 BMI result Body Mass Index 26.9 Objective Data Labs CBC & Chem 7: 02/17/22 05:21 02/17/22 05:21 Labs: Laboratory Results - last 24 hr 02/16/22 02/16/22 02/16/22 12:16 17:10 23:48 WBC RBC Hgb Hct MCV MCH MCHC RDW Plt Count MPV Immature Gran % (Auto) Neut % (Auto) Lymph % (Auto) [place] % (Auto) Eos % (Auto) Baso % (Auto) Lymph # (Auto) [place] # (Auto) Eos # (Auto) Baso # (Auto) Abs Immat Gran (auto) Absolute Neuts (auto) Absolute Nucleated RBC Nucleated RBC % (auto) VBG pH VBG pCO2 VBG pO2 VBG HCO3 VBG O2 Saturation VBG Base Excess Sodium Potassium Chloride Carbon Dioxide Anion Gap BUN Creatinine Estim Creat Clear Calc Estimated GFR POC Glucose 176 H 166 H 170 H Random Glucose Calcium Total Bilirubin AST ALT Alkaline Phosphatase Total Protein Albumin 02/17/22 02/17/22 02/17/22 05:20 05:21 05:21 WBC 6.1 RBC 3.98 L Hgb 10.9 L Hct 32.4 L MCV 81.4 MCH 27.4 MCHC 33.6 RDW 16.4 H Plt Count 186 MPV 9.8 Immature Gran % (Auto) 0.7 H Neut % (Auto) 77.5 H Lymph % (Auto) 13.0 L [place] % (Auto) 8.4 Eos % (Auto) 0.2 Baso % (Auto) 0.2 Lymph # (Auto) 0.8 L [place] # (Auto) 0.5 Eos # (Auto) 0.0 Baso # (Auto) 0.0 Abs Immat Gran (auto) 0.04 H Absolute Neuts (auto) 4.7 Absolute Nucleated RBC 0.000 Nucleated RBC % (auto) 0.0 VBG pH 7.50 H VBG pCO2 26 VBG pO2 51 VBG HCO3 20 L VBG O2 Saturation 81.0 VBG Base Excess -1.2 Sodium 131 L Potassium 3.8 Chloride 99 Carbon Dioxide 22 Anion Gap 14 BUN 16 Creatinine 0.66 Estim Creat Clear Calc 123.7 Estimated GFR > 60 POC Glucose Random Glucose 182 H Calcium 8.7 Total Bilirubin 0.5 AST 37 ALT 18 Alkaline Phosphatase 81 Total Protein 5.2 L Albumin 3.3 L 02/17/22 05:45 WBC RBC Hgb Hct MCV MCH MCHC RDW Plt Count MPV Immature Gran % (Auto) Neut % (Auto) Lymph % (Auto) [place] % (Auto) Eos % (Auto) Baso % (Auto) Lymph # (Auto) [place] # (Auto) Eos # (Auto) Baso # (Auto) Abs Immat Gran (auto) Absolute Neuts (auto) Absolute Nucleated RBC Nucleated RBC % (auto) VBG pH VBG pCO2 VBG pO2 VBG HCO3 VBG O2 Saturation VBG Base Excess Sodium Potassium Chloride Carbon Dioxide Anion Gap BUN Creatinine Estim Creat Clear Calc Estimated GFR POC Glucose 198 H Random Glucose Calcium Total Bilirubin AST ALT Alkaline Phosphatase Total Protein Albumin Quality Stroke Does the patient have a stroke diagnosis?: No VTE Prior VTE?: No VTE Risk Level:: Medical - moderate - high VTE Device Contraindication: Treatment Not Indicated VTE Drug Contraindication: N/A - Med Ordered Critical Care Time Critical Care Time (minutes): 60
--- NOTE | 2022-02-17 11:20 | PC.NURSE ---
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
--- NOTE | 2022-02-17 14:04 | MHC.CM.PN ---
Addendum entered by Pau Camacho 02/17/22 14:14: Received call back from Kirill who has reconsidered and would like Sacrament of the Sick. Call placed to [facility] to arrive by 2:30 to provide spiritual comfort for pt. Original Note: Received call from Kirill, pt's brother who states he has decided to transition his brother to CPA TAX today. Kirill states he would like to visit this afternoon and will call ICU before he leaves his home. ICU MD and RN aware and in agreement with plan. CM asked about clergy visit or other end of life provisions/comforts to which Kirill declined. Call received from LUANN Issa electrician supervisor substation of pt's care home - clinical update given to Maegan including VS, vent settings but no discussion of end of life. CM to follow
[2022-02-17] MEDS: fentaNYL citrate/NS 1,000 MCG/100 ML PLAST..BAG 2.5 MCG IVCONT (15:42)
--- NOTE | 2022-02-17 15:49 | P.PNCC_ITS ---
Subjective Subjective Date of Service: 02/17/22 Interval History: Mr. Vanegas was admitted to the ICU on February 11 after out of hospital cardiac arrest 2? aspiration. The patient has severe anoxic encephalopathy with complete loss of cortical function (by EEG and exam) and majority loss of brain stem function (by exam).? The family decided on comfort measures and terminal extubation today. We?re laying the groundwork for extubation.? We?ve placed the patient on PSV 8/21%/+5.? RR is about 16, Vt 270-300cc, Ve 4L.? ETCO2 is 35, Sat 95%.? I?ve started a fentanyl drip @ 25ug. The patient was extubated to room air, and per the brother?s wishes, they were brought to the bedside. They stayed only for a few minutes and then left. ?The brother told me that he couldn?t take it. The patient was made comfortable and extubated.? He became asystolic at?1436.? There was no pulse or respiratory effort. The brother Kirill was informed by telephone. IMPRESSION: 1. 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 2. Underlying obesity. 3. Status post cardiac arrest, likely 2? aspiration w airway obstruction. 4. Coma.? Exam, EEG, and CT are consistent with complete loss of cortical function.? Additionally, exam shows partial loss of brain stem function.? Still has decorticate posturing and still has partial though not full respiratory drive. 5. Acute respiratory failure.? 2? above. 6. CV:? Echo 02/13 essentially normal.? (The patient reportedly has a history of CHF, but I am not able to document that.) 7. ? Esophageal abnormality.? Nothing major found on EGD, altho the patient has a well documented h/o dysphagia, accord to the pt?s brother and according to his past medical history. 8. SANDIP.? Resolved post hydration. 9. Diabetes.? POC levels okay so far. 10. Bilat rib fxs 2? CPR. Critical Care Time (minutes): 0 Physical Exam Vital Signs: Vital Signs: Last Vital Signs Temp 98.0 F 02/17/22 12:00 Pulse 74 02/17/22 15:00 Resp 6 L 02/17/22 15:00 BP 151/80 H 02/17/22 15:00 Pulse Ox 95 02/17/22 15:00 BMI result Body Mass Index 26.9 Objective Data Labs CBC & Chem 7: 02/17/22 05:21 02/17/22 05:21 Labs: Laboratory Results - last 24 hr 02/16/22 02/16/22 02/17/22 17:10 23:48 05:20 WBC RBC Hgb Hct MCV MCH MCHC RDW Plt Count MPV Immature Gran % (Auto) Neut % (Auto) Lymph % (Auto) [place] % (Auto) Eos % (Auto) Baso % (Auto) Lymph # (Auto) [place] # (Auto) Eos # (Auto) Baso # (Auto) Abs Immat Gran (auto) Absolute Neuts (auto) Absolute Nucleated RBC Nucleated RBC % (auto) VBG pH 7.50 H VBG pCO2 26 VBG pO2 51 VBG HCO3 20 L VBG O2 Saturation 81.0 VBG Base Excess -1.2 Sodium Potassium Chloride Carbon Dioxide Anion Gap BUN Creatinine Estim Creat Clear Calc Estimated GFR POC Glucose 166 H 170 H Random Glucose Calcium Total Bilirubin AST ALT Alkaline Phosphatase Total Protein Albumin 02/17/22 02/17/22 02/17/22 05:21 05:21 05:45 WBC 6.1 RBC 3.98 L Hgb 10.9 L Hct 32.4 L MCV 81.4 MCH 27.4 MCHC 33.6 RDW 16.4 H Plt Count 186 MPV 9.8 Immature Gran % (Auto) 0.7 H Neut % (Auto) 77.5 H Lymph % (Auto) 13.0 L [place] % (Auto) 8.4 Eos % (Auto) 0.2 Baso % (Auto) 0.2 Lymph # (Auto) 0.8 L [place] # (Auto) 0.5 Eos # (Auto) 0.0 Baso # (Auto) 0.0 Abs Immat Gran (auto) 0.04 H Absolute Neuts (auto) 4.7 Absolute Nucleated RBC 0.000 Nucleated RBC % (auto) 0.0 VBG pH VBG pCO2 VBG pO2 VBG HCO3 VBG O2 Saturation VBG Base Excess Sodium 131 L Potassium 3.8 Chloride 99 Carbon Dioxide 22 Anion Gap 14 BUN 16 Creatinine 0.66 Estim Creat Clear Calc 123.7 Estimated GFR > 60 POC Glucose 198 H Random Glucose 182 H Calcium 8.7 Total Bilirubin 0.5 AST 37 ALT 18 Alkaline Phosphatase 81 Total Protein 5.2 L Albumin 3.3 L Quality Stroke Does the patient have a stroke diagnosis?: No VTE Prior VTE?: No VTE Risk Level:: Medical - moderate - high VTE Device Contraindication: Treatment Not Indicated VTE Drug Contraindication: N/A - Med Ordered
[2022-02-17] MEDS: fentaNYL citrate/PF 100 MCG/2 ML VIAL IVPUSH ×3 (16:00→16:24)
--- NOTE | 2022-02-19 12:21 | PM.DDS ---
Discharge Sum: Prov Provider Primary care physician: Kelvin Wilson NP Consults: 02/11/22 12:20 Consult to Gastroenterology Routine Consulting Provider: [facility] Reason for consultation: aspiration, food retained in esophagus, evaluate for EGD Has provider been notified: No Discharge Sum: Diag Contributing Factors (1) SANDIP (acute kidney injury): (2) Aspiration into airway: (3) Cardiac arrest: (4) Dysphagia: (5) SANDIP (acute kidney injury): (6) COPD (chronic obstructive pulmonary disease): (7) Diabetes: (8) Schizo-affective schizophrenia: Discharge Sum: Summary Date and Time Date of admission: 02/11/22 02:07 Date of : 02/17/22 Time of : 16:36 Summary Details: ? NOTE DISCHARGE DIAGNOSES: 1. Underlying alcohol syndrome 2. Schizoaffective schizophrenia 3. H/o dysphagia 4. Status post cardiac arrest, 2? aspiration w airway obstruction. 5. Anoxic encephalopathy with coma. 6. Acute respiratory failure. 7. SANDIP. 8. Diabetes. 9. Bilat rib fractures 2? CPR. Mr. Vanegas was a 56-year-old gentleman with underlying alcohol syndrome, schizoaffective schizophrenia, MARA, dysphagia, DM, CHF, and COPD.? He lived at a half-way. He was BIBA to the ED late on 02/10/2022 after cardiac arrest at his half-way.? He was reportedly walking around and suddenly dropped to the floor.? He was intubated in the field.? ROSC after 3 rounds of epinephrine.? (My estimate for CPR time is at least 15 minutes, assuming CPR was started immediately, a call was made to 911, time for the ambulance to arrive, time for the crew to set up and place an IV, then time for 3 rounds of epinephrine.) The patient was stabilized in the ED and admitted to the ICU.? On inspection of the hypopharynx with the Glidescope, a piece of a hot dog sausage was removed from the upper esophagus.? Chest CT showed evidence of retained food in his esophagus.? He was evaluated by GI.? Underwent EGD on 02/13:? A long piece of retained hot dog was visualized in the esophagus and pushed into the stomach.? Other minor findings included a hiatal hernia, gastritis, and gastroesophageal reflux.? No indication of any major problem w the esophagus. Following the EGD, the patient's propofol was turned off.? After some time, the patient remained comatose and unresponsive.? Best neurologic response was decorticate posturing -- GCS 5T.? He had no dolls? eyes, no gag reflex.? Clearly had spontaneous breathing. His condition was generally ?stable? thereafter.? No neurologic improvements.? EEG on 02/14 was basically flat, c/w absent cortical function.? Head CT 02/15 showed loss of architecture indicating diffuse cerebral edema.? He had no gag reflex and no dolls? eyes, and lost corneal reflexes.? Just had decorticate posturing to stimulation and partial spontaneous ventilation.? He was able to maintain a respiratory rate on pressure support ventilation, but was not able to maintain tidal volumes at low levels of pressure support. I had numerous conversations with the patient's brother Kirill in regards to Jayce is condition.? After consultation with those close to him, Kirill made the decision today to change his status to comfort measures only.? Kirill came in to see him.? Jayce was extubated to room air.? Kirill stayed for few minutes and then left.? The patient became asystolic about an hour later, at 1636. Additional Data Attending physician: Alon Stallworth MD
== END 2022-02-17 18:08 | disposition expired | DRG 207 ==
LOC: HO.ED 02-11 01:51 → HO.EDOVER 02-11 02:14 → HO.ICU 02-11 02:15
PROVIDERS: Internal Medicine; Physician Assistant Medical; Registered Nurse Community Health; Admitting Provider Internal Medicine Pulmonary Disease; Emergency Provider Emergency Medicine; PCP Nurse Practitioner Family; Visit Provider Anesthesiology
DX: J96.00 Acute respiratory failure, unspecified whether with hypoxia or hypercapnia (principal); R40.20 Unspecified coma; G93.6 Cerebral edema; N17.9 Acute kidney failure, unspecified; G93.1 Anoxic brain damage, not elsewhere classified; M96.89 Other intraoperative and postprocedural complications and disorders of the musculoskeletal system; T17.228A Food in pharynx causing other injury, initial encounter; Z51.5 Encounter for palliative care; X58.XXXA Exposure to other specified factors, initial encounter; Q86.0 Fetal alcohol syndrome (dysmorphic); R13.10 Dysphagia, unspecified; I10 Essential (primary) hypertension; E78.5 Hyperlipidemia, unspecified; E66.9 Obesity, unspecified; F20.9 Schizophrenia, unspecified; Z68.26 Body mass index [BMI] 26.0-26.9, adult; G47.33 Obstructive sleep apnea (adult) (pediatric); E11.9 Type 2 diabetes mellitus without complications; K29.70 Gastritis, unspecified, without bleeding; I50.9 Heart failure, unspecified; K44.9 Diaphragmatic hernia without obstruction or gangrene; J44.9 Chronic obstructive pulmonary disease, unspecified; Z20.822 Contact with and (suspected) exposure to COVID-19; Z86.74 Personal history of sudden cardiac arrest; Z87.891 Personal history of nicotine dependence; Z79.4 Long term (current) use of insulin; Z79.899 Other long term (current) drug therapy; Y84.8 Other medical procedures as the cause of abnormal reaction of the patient, or of later complication, without mention of misadventure at the time of the procedure; Y92.099 Unspecified place in other non-institutional residence as the place of occurrence of the external cause
CPT/HCPCS: 36415; 70450; 70490; 71045; 71250; 72125; 80048; 80053; 80307; 81003; 82009; 82040; 82803; 82947; 83605; 83735; 83880; 84100; 84439; 84443; 84484; 85014; 85018; 85025; 85610; 87635; 93005; 93306; 94002; 94003; 94799; 95816; 96365; 96366; 96367; 96375; 99285; 99291; C1758; J0171; J0330; J0461; J1250; J2250; J2370; J2543; J3010; J3475; P9047